=== PATIENT | male | born 1940 | race Caucasian/White ===

== ENCOUNTER 2019-11-05 10:30 | Outpatient (RCR) | payer MEDICARE, OTHER, SELFPAY ==
--- NOTE | 2019-10-03 11:17 | HP.OTEVAL ---
Patient's Visit Information ROSA MARIA Mari ALFARO is a 78 year old M, referred to Occupational Therapy by ARIS GIL, with a diagnosis of right IF closed dislocation of metacarpophalangeal joint. Date of Evaluation: 10/03/19 Occupational Therapist: Maria E Caal, OTJama/Margaret, CHT - Subjective This 78 year old male was seen for OT eval with dx. of closed dislocation of metacarpophalangeal joint of finger with sx for repair 4 months ago for right IF MCP. pt has limited ROM of IF and difficulty forming a composite fist. pt states he would like to return to his PLOF. recent right CTR - Pain right IF 4 Pain Intensity Range: 0, 4 - ROM MP: right IF 0/70 left 0/75 PIP: right IF 0/70 pt demo with 30* ulnar deviation with PIP flexion left 0/100 DIP: right IF 0/45 ROM Comments: pt demo a deviation of PIP - Strength Couples Therapist: right 35# left 50# Lateral Pinch: right 8# left 12# Tripod Pinch: right 8# left 10# Strength Comments: pt with recent CTR. noted muscle weakness in thumb adduction and IF abduction - Sensation Sensation Comments: states better since CTR but declined testing as not associated with this injury - Quick DASH-Disab of Arm,Shoulder& Hand Quick DASH Score: 29.5450 - Goals Goal:: pt will demo a increase in right field tax auditor strength by 10# or greater to return pt to PLOF by d/c Goal:: pt will demo a increase in right MCP flex to 75* and PIP flex by 25* or greater and a decrease in right IF middel phalanges ulnar dev by 10* or more to increase pts ability to form composite fist for functional grasp by d/c Goal:: pt will report pain no greater than 1/10 with use of right hand for ADLs and IADLS Goal:: pt will demo understanding of scar mtg by end of 2 session to decrease scar adhesions. - Rehabilitation General Assessment: Pt 4 months s/p open reduction of right IF MCP joint. pt demo with limited MCP and PIP ROM with ulnar deviation at PIP- this is limiting pts ind.with grasp and use of right hand for ADLs and IADLS. Pt would benefit from skilled OT services 1-2x week for 4 weeks to increase pts ind with ADls and IADLS. Today therapist completed scar mtg and PROM along with ed. pt on performing scar mtg 2-3x a day and PROM 3-4 x a day. pt demo understanding therapist will initiate PRE as able. pt demo understanding and agree to POC. Rehabilitation Potential: Good - Anticipated Interventions A/AAROM/PROM, Strengthening, Scar Care, Modalities, Orthoses, Joint Protection/Energy Conservation - Visit Plan Frequency: 2x /Week Duration: 4 Weeks TEXT: Thank you for the opportunity to evaluate your patient. For Medicare and Medicare HMO plans, please review the plan of care and approve it. It will need to be FAXED BACK to us at [phone] for Medicare purposes. Please let me know if there are questions or concerns regarding this plan of care. Physician Signature: Date:
--- NOTE | 2019-10-29 11:02 | HP.OTREVAL ---
ARIS GIL, It has been my pleasure to treat ROSA MARIA Guerra DR ALFARO over the last 8 visits for right IF closed dislocation of metacarpophalangeal joint. Please see the progress note below for an update on the occupational therapy plan of care! Subjective: pt arrives states he is feeling ok- no pian at this time but continues to struggle with composite fist/ PIP deviation - pt states a lot of times he doesn't notice the lack of ROM. But would like to know why deviation is occuring Objective/Function: right IF MCP ROM 0/70. right IF PIP 0/100. right IF DIP 0/50. IF deviates at PIP about 30*. therapist domenica oval 8 to provide support for pinch tasks -. right cash application clerk strength 30#. right lateral pinch 8#. right tripod pinch 8#. pt made improvements with ROM. Kyleigh has ed. pt on HEP for strength and ROM and in session we used US to increase soft tissue elasticity to wendy ROM - Plan Plan: pt to return to for further evaluation Goals - Goals Patient Goals: Regain Mobility, Use Hand/Wrist/Arm Normally Again Goal:: pt will demo a increase in right cash application clerk strength by 10# or greater to return pt to PLOF by d/c Goal:: pt will demo a increase in right MCP flex to 75* and PIP flex by 25* or greater and a decrease in right IF middel phalanges ulnar dev by 10* or more to increase pts ability to form composite fist for functional grasp by d/c Goal:: pt will report pain no greater than 1/10 with use of right hand for ADLs and IADLS Goal:: pt will demo understanding of scar mtg by end of 2 session to decrease scar adhesions. Anticipated Interventions Anticipated Interventions: A/AAROM/PROM, Strengthening, Scar Care, Modalities, Orthoses, Joint Protection/Energy Conservation Please do not hesitate to contact me at [phone] by phone or if you have questions or concerns regarding this new plan of care! Sincerely, Maria E Caal, OTR/L, CHT
--- NOTE | 2019-11-05 11:04 | HP.OTDCSUM_ITS ---
It has been my pleasure to treat ROSA MARIA Mari ALFARO under orders from ARIS GIL, for the diagnosis of right IF closed dislocation of metacarpophalangeal joint for a total of 10 visit(s). Please see the following information for a summary of their discharge status. % Improvement: 70 Objective/Function: right IF MCP ROM 0/70. right IF PIP 0/100. right IF DIP 0/50. IF deviates at PIP about 30*. therapist domenica oval 8 to provide support for pinch tasks -. right receiving tank operator strength 30#. right lateral pinch 8#. right tripod pinch 8#. pt made improvements with ROM. Thearpy has ed. pt on HEP for strength and ROM and in session we used US to increase soft tissue elasticity to wendy ROM -pt is using elastic bands and resistive sponge to increase pinch and receiving tank operator strength Patient Goals: Regain Mobility, Use Hand/Wrist/Arm Normally Again Goal:: pt will demo a increase in right receiving tank operator strength by 10# or greater to return pt to PLOF by d/c Goal:: pt will demo a increase in right MCP flex to 75* and PIP flex by 25* or greater and a decrease in right IF middel phalanges ulnar dev by 10* or more to increase pts ability to form composite fist for functional grasp by d/c Goal:: pt will report pain no greater than 1/10 with use of right hand for ADLs and IADLS Goal:: pt will demo understanding of scar mtg by end of 2 session to decrease scar adhesions. Plan: D/C with HEP Discharge Comments: pt was seen for 10 OT visits following a right IF MCP dislocation with surgical repair- pt continues to struggle with a PIP ulnar deviation with resisitance of receiving tank operator and pinch- therapist domenica. custom oval 8 for PIP to add stability- pt uses it on occasions- therapist has ed. pt on use of heat, scar mtg and AROM ex along with light resistive ex to cont to work with to gain increase use of right hand for ADls and IADLS. pt demo understanding and agree to POC If there are questions or concerns regarding this patient's occupational therapy, please fell free to call me at [phone]. Thank you for the referral of this patient. Sincerely, Maria E Caal, OTR/L, CHT
== END 2019-11-05 19:00 | disposition home or self-care (01) ==
LOC: OT 10:30
PROVIDERS: PCP Family Medicine
DX: S63.269D Dislocation of metacarpophalangeal joint of unspecified finger, subsequent encounter (principal)
CPT/HCPCS: 97035; 97110; 97140; 97166; 97530

== ENCOUNTER 2024-12-27 17:30 | Inpatient (IN) | payer MEDICARE, OTHER, SELFPAY ==
[2024-12-27] VITALS (7 sets, daily range): BP systolic 148–171; BP diastolic 68–88; PULSE 77–84; RESP 12–30; TEMP 36.6–37.8; O2SAT 95–97; BMI 26.1; BMI 26.2
--- NOTE | 2024-12-27 18:09 | CT_ITS ---
PROCEDURE: STROKE CTA HEAD AND NECK W/CON 12/27/2024 REASON FOR EXAM: NEURO DEFICIT, ACUTE, STROKE SUSPECTED - APHASIA TECHNIQUE: Procedure Code: CTCTA.ST.HN Modality: CT Procedure: STROKE CTA HEAD AND NECK W/CON Multiplanar Sagittal and Coronal images were obtained. CONTRAST: 100 mL of Isovue 370 One or more dose reduction techniques were used (e.g., Automated exposure control, adjustment of the mA and/or kV according to patient size, use of iterative reconstruction technique). RADIATION DOSE SUMMARY: DLP: 777 mGycm COMPARISON: none FINDINGS: The aortic arch demonstrates a bovine configuration with mild to moderate atherosclerosis. The ostia of the great vessels are patent. There is conventional branching. The right CCA is patent with mild atherosclerosis. There is no significant stenosis of the right carotid bifurcation although this is mild atherosclerosis. The cervical right ICA is patent. The right MCA and right ROBER appear patent. There is no large vessel occlusion. The left CCA is patent. There is no significant stenoses at the left carotid bifurcation although this is moderate atherosclerosis. The cervical left ICA is patent. The left MCA and left ROBER appear patent. There is no large vessel occlusion. The right vertebral artery arises from the right subclavian artery. The left vertebral artery arises from the left subclavian artery. Both vertebral arteries are patent. Both vertebral arteries join to form the patent basilar artery. Both posterior cerebral arteries arise from the tip of the basilar. Both proximal SATELLITE TELEVISION INSTALLER segments are patent. There is no large vessel occlusion. There is no enhancing intracranial mass. Shotty cervical lymph nodes are identified. The thyroid gland is heterogeneous. The lung apices demonstrate no pneumothorax. Calcified pleural lining. No destructive osseous abnormalities identified. Nonspecific ethmoid sinus/nasal cavity soft tissue structures measuring approximally 2.6 x 2.5 cm at the midline. CT/STROKE CTA Head AND Neck W/Con IMPRESSION: No acute large vessel occlusion or high grade stenosis. Nonspecific ethmoid sinus/nasal cavity soft tissue structures measuring approxi shara 2.6 x 2.5 cm at the midline (series 4, image 14). Dr. Villafana was notified by Larry Saenz at 6:45 Pm EST on 12/27/24. Reading Location: [facility]
--- NOTE | 2024-12-27 18:09 | CT_ITS ---
PROCEDURE: STROKE BRAIN/HEAD WITHOUT CONT 12/27/2024 REASON FOR EXAM: NEURO DEFICIT, ACUTE, STROKE SUSPECTED - APHASIA TECHNIQUE: Procedure Code: CTBR.ST Modality: CT Procedure: STROKE BRAIN/HEAD WITHOUT CONT Coronal and Sagittal reconstruction series were provided. One or more dose reduction techniques were used (e.g., Automated exposure control, adjustment of the mA and/or kV according to patient size, use of iterative reconstruction technique. RADIATION DOSE SUMMARY: DLP: 847 mGycm COMPARISON: None FINDINGS: Ill-defined hypodensity within the left periventricular morales radiata suggestive of subacute/chronic infarction although acute on subacute/chronic infarction is not entirely excluded. Otherwise, no definite acute large territorial infarction. No mass effect or acute intracranial hemorrhage is noted. There is no hydrocephalus or significant midline shift. There is moderate chronic microvascular ischemic changes and [id number]-[id number] parenchymal volume loss. No acute, depressed calvarial fractures. No large scalp hematomas. The paranasal sinuses are clear. Bilateral lens surgery. Nonspecific ethmoid sinus/nasal cavity soft tissue structures measuring approximally 2.6 x 2.5 cm at the midline (series 4, image 14). CT/STROKE Brain/Head without Cont IMPRESSION: Ill-defined hypodensity within the left periventricular morales radiata suggesti ve of subacute/chronic infarction although acute on subacute/chronic infarction is not entirely excluded. Otherwise, no definit e acute large territorial infarction. Nonspecific ethmoid sinus/nasal cavity soft tissue structures measuring approxi shara 2.6 x 2.5 cm at the midline (series 4, image 14). Dr. Villafana was notified by Larry Saenz at 6:50 pm EST on December 27, 2024. Reading Location: [facility]
--- NOTE | 2024-12-27 18:09 | EKG12_ITS ---
Test Reason : STROKE ALERT Blood Pressure : */* mmHG Vent. Rate : 82 BPM Atrial Rate : 83 BPM P-R Int : 164 ms QRS Dur : 92 ms QT Int : 346 ms P-R-T Axes : 40 -59 61 degrees QTcB Int : 404 ms Normal sinus rhythm Left anterior fascicular block Minimal voltage criteria for LVH, may be normal variant ( R in aVL ) Abnormal ECG Confirmed by JEANMARIE ALEJO ([id number]), art editor HALEY DELGADO ([id number]) on 12/29/2024 6:58:08 AM Referred By: CHAIM Confirmed By: JEANMARIE ALEJO
--- NOTE | 2024-12-27 18:10 | EX.ED.DYSGE1 ---
HPI History of Present Illness Chief Complaint: General Illness Informant: patient and family Narrative Narrative: Patient is an 84-year-old male with a history of HTN presenting with altered mental status and grogginess following inguinal hernia repair yesterday. Main issue is today, his speech is abnormal. Patient is accompanied by his son, who is supplementing history. - Underwent inguinal hernia repair yesterday morning at 0800 at [facility]/ Dr. Casanova. - Reports excessive pain at the incision site and grogginess since this morning. - Son notes that patient is unusually unable to finish sentences, appearing lethargic and tired; describes this as very odd for him. - Symptoms began this afternoon; was reportedly fine yesterday and this morning, though in pain. - Last known normal speech and behavior was around 0900 this morning per son. - Took a nap around 1000, which is atypical for him; woke up confused. [place] like he was OK when he went down for nap. Son states friends were there before that and they did not think he was acting unusual, as he is now. - Denies difficulty using or feeling arms or legs. - Denies numbness or tingling in legs. - No history of CVA, AFib, or vascular disease. - Stopped taking baby aspirin 15 days ago; denies current use of anticoagulants. - No other significant medical problems reported; remains active. [facility] Medical History (Updated 12/27/24 @ 23:[address] Darrell Reeves, DO) HTN (hypertension) Home Medications ?Medication ?Instructions ?Recorded ?Last Taken ?Type lisinopril 20 mg tablet 20 mg PO DAILY BP 12/27/24 Unknown History metoprolol succinate 50 mg 50 mg PO DAILY GERD 12/27/24 Unknown History tablet,extended release 24 hr omeprazole 20 mg capsule,delayed 20 mg PO DAILY GERD 12/27/24 Unknown History release oxycodone-acetaminophen 5 mg-325 1 tab PO 4X/DAY PRN PRN pain 12/27/24 Unknown History mg tablet Allergy/AdvReac Type Severity Reaction Status Date / Time Penicillins Allergy Hives Verified 12/27/24 17:32 Social History Smoking Status: Former smoker ROS ROS ED Constitutional Constitutional ED: Reports fatigue; Denies chills or fever(s) Eyes Eyes: Denies change in vision or diplopia ENT ENT ED: Denies rhinorrhea or sore throat Cardiovascular Cardiovascular: Denies chest pain or palpitations Respiratory/Chest Respiratory/Chest: Denies cough or dyspnea Gastrointestinal Gastrointestinal: Reports abdominal pain; Denies diarrhea, nausea or vomiting Genitourinary Genitourinary ED: Denies dysuria or hematuria Musculoskeletal Musculoskeletal: Denies back pain or neck pain Integumentary Denies abscess or rash Neurologic Neurologic: Reports as per HPI, abnormal speech and behavior changes; Denies headache(s), paresthesias or weakness Psychiatric Psychiatric: Denies anxiety or suicidal thoughts EXAM Physical Exam Const Vital Signs: 12/27/24 17:32 12/27/24 18:01 12/27/24 18:09 Temperature 99.1 F Temperature Source Oral Pulse Rate 84 Respiratory Rate 16 Respiratory Effort Normal Non-Labored Respiratory Pattern Normal Blood Pressure 171/84 H Blood Pressure Mean 113 Pulse Ox 96 96 Oxygen Delivery Method Room Air Room Air 12/27/24 18:09 12/27/24 18:09 12/27/24 19:06 Temperature Temperature Source Pulse Rate 84 82 80 Respiratory Rate 16 30 H 12 Respiratory Effort Respiratory Pattern Blood Pressure 165/88 H 164/73 H 167/76 H Blood Pressure Mean 113 103 106 Pulse Ox 97 95 97 Oxygen Delivery Method Room Air Room Air Room Air 12/27/24 19:30 Temperature Temperature Source Pulse Rate 81 Respiratory Rate 16 Respiratory Effort Respiratory Pattern Blood Pressure 148/68 H Blood Pressure Mean 94 Pulse Ox 97 Oxygen Delivery Method Room Air Positive well nourished and well developed General Appearance ED: well developed and NAD HEENT Reports moist mucous membranes normocephalic and atraumatic Eyes PERRL and EOMs intact bilaterally Neck full ROM and supple Neck Narrative: No carotid bruits Resp normal respiratory effort and clear to auscultation bilaterally Cardio regular rate, regular rhythm and no murmurs GI non-tender and non-distended GI Narrative: In the left lower quadrant surgical incision with dressing intact there is no discharge around the dressing and there is a significant amount of ecchymosis that progresses down into the left hemiscrotum. The left lower quadrant is all tender but he has no tenderness remotely or to percussion elsewhere in the abdomen. Soft nondistended normal bowel sounds present. Auscultation: normoactive bowel sounds Palpation: soft Back/Spine no CVA tenderness General Back: other FROM Extremity normal to inspection General Extremety ED: Negative for edema, pulses abnormal or tenderness General Extremity: Negative for edema or pulses abnormal Neuro oriented x3, CN's II-XII intact bilaterally and no sensory deficits noted Neuro Narrative: There is some mild expressive aphasia present. No jaime-inattention. No other lateralizing abnormal findings NIHSS 1 no dysarthria. Sensorium / Orientation: awake and alert Motor Exam: strength 5/5 throughout Skin no rashes or lesions noted and no wounds NIHSS NIHSS Initial: 1a Level of Consciousness: 0 1b LOC Questions (Score 2 if aphasic/stupor): 0 1c LOC Commands (Only score 1st attempt): 0 2 Best Gaze (If aphasic, use reflexive mvmts.): 0 3 Visual: 0 4 Facial Palsy: 0 5 Motor Arm Right (UN = amputation/fusion): 0 5 Motor Arm Left: 0 6 Motor Leg Right: 0 6 Motor Leg Left: 0 7 Limb ataxia (Only + if out of proportion): 0 8 Sensory (Aphasia/stupor=0 or 1, coma=2): 0 9 Best Language: 1 10 Dysarthria (mute, coma=2, intubated=UN): 0 11 Extinction and Inattention (only scored if +): 0 Total Score: 1 MDM MDM MDM Narrative Medical decision making narrative: I saw the patient just after 1800, the last known well sounds like it was as late as 10:00 this morning. He is not a thrombolytic candidate but he is within 24 hours of acute onset stroke like symptoms which is what I am concerned about especially given the fact that he has recently been off of his aspirin just had surgery yesterday and has blood pressure 171/84 so we called a stroke alert. Since the patient has been symptomatic for 24 hours, with approximately eight hours before evaluation, a stroke alert was called. The patient is not a thrombolysis candidate due to timing and recent intraabdominal surgery. I spoke with stroke neurology after he had a CT and CT angiography of the head and neck performed. I reviewed all of the imaging and results, which I agree with. They are consistent with a small area of encephalomalacia in the left parietal area, but no LVO, as confirmed by stroke neurology. The patient?s total NIHSS is 1. Admission for further workup is indicated. We are monitoring his blood pressure. His EKG shows sinus rhythm, and the rest of his lab tests are unremarkable. I believe the majority of his left lower quadrant findings are typical post-operative findings, as he is one day post-op from a left inguinal herniorrhaphy. I do not think he needs advanced imaging of this area at this time, and his blood counts look good, with no signs of anemia to suggest significant post-operative blood loss. Hemoglobin 15.9. I discussed this with stroke neurology as well as the hospitalist for admission to the PCU. Lab Data Attestation: I reviewed the patient's lab results. Labs: Laboratory Results - last 24 hr 12/27/24 12/27/24 18:18 18:20 WBC 12.0 H RBC 4.97 Hgb 15.9 Hct 47.3 MCV 95.2 H MCH 32.0 MCHC 33.6 RDW Std Deviation 44.2 H RDW Coeff of Tari 12.7 Plt Count 178 MPV 10.0 Immature Gran % (Auto) 0.400 Neut % (Auto) 81.0 H Lymph % (Auto) 6.0 L Mills % (Auto) 12.1 H Eos % (Auto) 0.2 Baso % (Auto) 0.3 Absolute Neuts (auto) 9.7 H Absolute Lymphs (auto) 0.72 L Nucleated RBC % 0 PT 13.8 INR 1.0 APTT 29.3 Sodium 137 Potassium 4.2 Chloride 102 Carbon Dioxide 23.8 Anion Gap 11 BUN 22 H Creatinine 1.04 Estim Creat Clear Calc 47.71 L Est GFR (MDRD) Non-Af 71 BUN/Creatinine Ratio 21.3 H Glucose 133 H Hemoglobin A1c 5.8 H Calcium 9.5 Troponin T High Sens 27 H TSH 4.180 Ethyl Alcohol < 10.1 POC Glucose 127 H Radiography Diagnostic Testing: Clinical Impression(s) from Imaging Studies Brain CT 12/27/24 18:09 IMPRESSION: Ill-defined hypodensity within the left periventricular morales radiata suggestive of subacute/chronic infarction although acute on subacute/chronic infarction is not entirely excluded. Otherwise, no definite acute large territorial infarction. Nonspecific ethmoid sinus/nasal cavity soft tissue structures measuring approximally 2.6 x 2.5 cm at the midline (series 4, image 14). Dr. Villafana was notified by Larry Saenz at 6:50 pm EST on December 27, 2024. Reading Location: [facility] Head/Neck CTA 12/27/24 18:09 IMPRESSION: No acute large vessel occlusion or high grade stenosis. Nonspecific ethmoid sinus/nasal cavity soft tissue structures measuring approximally 2.6 x 2.5 cm at the midline (series 4, image 14). Dr. Villafana was notified by Larry Saenz at 6:45 Pm EST on 12/27/24. Reading Location: [id number] Rhythm Strip Rhythm Strip: Sinus Rhythm Rate: 82 Ectopy: None EKG Initial EKG: Attestation: I personally reviewed and interpreted this EKG as follows: Interpretation: Sinus Rhythm, No Acute Injury Pattern and LAFB Prior EKG tracings: not available for review Prior: No Prior Management Discussion w/another healthcare provider: Hospitalist, Embosser Apprentice (stroke neuro dr. Granados) and Radiologist Critical Care Time Critical Care Time: Yes Critical care time (excluding procedures): 30-74 minutes (37 min), Including time spent:, Discussing w/Patient &/or Family/Pari Mutuel Ticket Seller, Discussing w/Consultants, Arranging Admission or Transfer and Performing Direct Patient Care at Bedside Discharge Plan Dx/Rx/DC Orders Clinical Impression: Aphasia due to acute stroke, Postprocedural state Disposition Disposition: Acute Care Hospital [facility] Discharge Date/Time: 12/27/24 20:42 Stroke Documentation Questions Stroke Team Activated: Yes Was Patient considered for Endovascular Intervention?: No-CTA negative, determined not to be an endovascular candidate IV Thrombolytic Administered: No (Outside window, recent surgery)
--- NOTE | 2024-12-27 18:16 | CM.ED ---
Social Work Date of referral: 12/27/24 Reason for referral: Stroke alert Patient has already been taken out of the room for imaging by the time social arrived, however, social worker health services met with patient's son to check in on him and see how he was doing. Patient stated that he and patient were both just scared because of symptoms but otherwise, stated he was ok and denied any needs/support at this time. Patient's son expressed appreciation for social work visit. Emily Suh, IT INTEGRATION ARCHITECT, AUTOMOTIVE MANUFACTURER
--- OUTSIDE RECORDS SUMMARY | 2024-12-27 18:23 | XMS RPT_ITS | CCD ---
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.Jennifer COLES Unavailable Ally De PA-C Unavailable [phone] ROSS BLANDON Referring Unavailable BARBER, ROSS A Primary Care Unavailable BARBER, ROSS A Primary Care Unavailable TESTAPOLINAR BIRCH Attending Unavailable BARBER, ROSS A Primary Care Unavailable VETOGILMERTZ, TRAN Referring Unavailable VETOGILMERTZ, TRAN Attending Unavailable BARBER, ROSS A Primary Care Unavailable TESTAPOLINAR BIRCH Referring Unavailable TESTAPOLINAR BIRCH Attending Unavailable TERESO BALBUENA Attending Unavailable BARBER, ROSS A Primary Care Unavailable BARBER, ROSS A Referring Unavailable BARBER, ROSS A Referring Unavailable TERESO BALBUENA Attending Unavailable BARBER, ROSS A Primary Care Unavailable BARBER, ROSS A Referring Unavailable BARBER, ROSS A Primary Care Unavailable BARBER, ROSS A Referring Unavailable TERESO BALBUENA Attending Unavailable BARBER, ROSS A Primary Care Unavailable BARBER, ROSS A Primary Care Unavailable TESTRAAPOLINAR HAWKINS Attending Unavailable BARBER, ROSS A Primary Care Unavailable DONTAE ROWE Attending Unavailable BARBER, ROSS A Primary Care Unavailable DONTAE ROWE P Referring Unavailable VETOHENRI, TRAN Attending Unavailable BARBER, ROSS A Primary Care Unavailable ROMEL QUEEN Referring Unavailable BARBER, ROSS A Primary Care Unavailable TESTRAKEAPOLINAR Attending Unavailable TESTRAKE, APOLINAR Referring Unavailable TRAN YOUNG Attending Unavailable ROSS BLANDON Primary Care Unavailable ROMEL QUEEN Referring Unavailable ROSS BLANDON Primary Care Unavailable TRAN YOUNG Attending Unavailable ROMEL QUEEN Referring Unavailable BARBER, ROSS A Primary Care Unavailable ROMEL QUEEN Referring Unavailable ROSS BLANDON Referring Unavailable TERESO BALBUENA Attending Unavailable ROSS BLANDON A Primary Care Unavailable TESTAPOLINAR BIRCH Referring Unavailable TESTSKYLAR, APOLINAR Attending Unavailable BARBER, ROSS A Primary Care Unavailable TESTSKYLAR, APOLINAR Attending Unavailable BARBER, ROSS A Primary Care Unavailable BARBER, ROSS A Primary Care Unavailable ROSS BLANDON A Attending Unavailable BARBER, ROSS A Primary Care Unavailable BARBER, ROSS A Referring Unavailable BARBER, ROSS A Referring Unavailable TERESO BALBUENA Attending Unavailable BARBER, ROSS A Primary Care Unavailable ROSS BLANDON A Referring Unavailable BARBER, ROSS A Primary Care Unavailable TERESO BALBUENA Attending Unavailable JOSÉ ANTONIO BLANDONREY A Referring Unavailable BARBER, ROSS A Primary Care Unavailable Allergies Allergy Classification Reported Allergen(s) Allergy Type Date of Onset Reaction(s) Facility (20 sources) Penicillin G; Translations: [PENICILLIN G] Drug Allergy 06-03-2002 [facility] Work Phone: (20 sources) Sertraline; Translations: [SERTRALINE HCL] Drug Allergy 12-11-2016 Other: See Comments [facility] Work Phone: Medications Current Medications Medication Drug Class(es) Dates Sig (Normalized) Sig (Original) aspirin 81 mg delayed release oral tablet (20 sources) Platelet Aggregation Inhibitor, Nonsteroidal Anti-inflammatory Drug take 1 tablet by mouth once daily aspirin, enteric coated (ASPIRIN, ENTERIC COATED) 81 mg EC tablet Take 81 mg by mouth once daily. Take one tablet daily Active Comment on above: Take 81 mg by mouth once daily. Take one tablet daily codeine phosphate 2 mg/ml / guaiFENesin 20 mg/ml oral solution (1 source) Opioid Agonist Start: 02-01-2022 End: 02-08-2022 take 5 mL by mouth every twelve hours as needed for cough and cough codeine-guaiFENes in (ROBITUSSIN AC) 10-100 mg/5 mL syrup Indications: Acute cough Take 5 mL by mouth twice daily as needed for up to 7 days. 70 mL 0 02/01/2022 02/08/2022 Active Comment on above: Take 5 mL by mouth t wice daily as needed for up to 7 days. fluticasone propionate 0.05 mg/actuat metered dose nasal spray (20 sources) Corticosteroid Start: 04-22-2024 take 2 spray(s) nasal route once daily fluticasone (FLONASE ALLERGY RELIEF) 50 mcg/actuation nasal spray Use 2 Sprays in each nostril once daily. 1 Each 1 04/22/2024 Active lisinopril 20 mg oral tablet (20 sources) Angiotensin Converting Enzyme Inhibitor Start: 12-08-2022 End: 05-27-2024 take 1 tablet by mouth once daily in the evening lisinopril (ZESTRIL) 20 mg tablet Take 1 tablet by mouth once daily. 90 tablet 3 10/21/2024 1:11 PM EDT 05/27/2024 Active Start: 11-13-2022 take 1 tablet by марина th once daily lisinopril (ZESTRIL) 20 mg tablet Take 1 tablet by mouth once daily. 90 tablet 0 11/13/2022 Active Start: 04-01-2020 End: 11-10-2022 take 1 tablet by mouth once daily lisinopril (ZESTRIL) 20 mg tablet Take 1 tablet by mouth once daily. 90 tablet 0 11/07/2022 11/10/2022 Discontinued Comment on above: TAKE 1 TABLET BY МАРИНА TH ONCE DAILY. 24 hr metoprolol succinate 50 mg extended release oral tablet (20 sources) beta-Adrenergic Tex Start: 04-20-2023 End: 05-26-2024 take 1 tablet by mouth once daily in the evening metoprolol succinate ER (TOPROL XL) 50 mg 24 hr tablet Indications: Essential hypertension Take 1 tablet by mouth once daily. 90 tablet 1 08/19/2024 2:44 PM EDT 05/26/2024 Active Start: 02-21-2023 End: 04-20-2023 take 0.5 tablet by mouth once daily metoprolol succinate ER (TOPROL XL) 100 mg Indications: Essential hypertension Take 1/2 tablet by mouth once daily. 45 tablet 1 02/21/2023 04/20/2023 Discontinued Start: 04-18-2021 End: 10-27-2022 take 0.5 tablet by mouth once daily metoprolol succinate ER (TOPROL XL) 100 mg Indications: Essential hypertension Take 1/2 tablet by mouth once daily. 45 tablet 1 04/19/2022 Active Start: 11-03-2019 End: 11-05-2020 take 0.5 tablet by mouth once daily metoprolol succinate ER (TOPROL XL) 100 mg Indications: Essential hypertension TAKE 1/2 TABLET BY MOUTH ONCE DAILY. 45 tablet 3 11/03/2019 11/05/2020 Discontinued Comment on above: TAKE 1/2 TABLET BY M OUTH ONCE DAILY. Take 1 tablet by марина th once daily. omeprazole 20 mg delayed release oral capsule (20 sources) Proton Pump Inhibitor Start: End: take 1 capsule by mouth once daily omeprazole (PRILOSEC) 20 mg capsule Take 1 capsule by mouth once daily on an empty stomach. 90 capsule 1 10/01/2024 10:18 AM EDT 05/27/2024 Active Comment on above: TAKE 1 CAPSULE BY MO UTH ONCE DAILY ON AN EMPTY STOMACH Take 1 capsule by mo uth once daily on an empty stomach. perflutren lipid microspheres 1.3 mL in NaCl (PF) 0.9% 10 mL injection (DEFINITY) (9 sources) Start: 2 End: 3 perflutren lipid microspheres 1.3 mL in NaCl (PF) 0.9% 10 mL injection (DEFINITY) 125 ml sodium chloride 9 mg/ml prefilled syringe (9 sources) Start: 2 End: 3 sodium chloride 0.9 % (flush) 10 mL (BD POSIFLUSH) vitamin b12 0.1 mg oral tablet (20 sources) Vitamin B12 take 1 tablet by mouth once daily cyanocobalamin (VITAMIN B-12) 100 mcg tab Take 100 mcg by mouth once daily. Active Comment on above: Take 100 mcg by mout h once daily. Completed/Discontinued Medications Medication Drug Class(es) Dates Sig (Normalized) Sig (Original) atorvastatin 10 mg oral tablet (1 source) HMG-CoA Reductase Inhibitor Start: 04-01-2020 End: 04-18-2021 take 0.5 tablet by mouth once daily atorvastatin (LIPITOR) 10 mg tablet TAKE 1/2 TABLET BY MOUTH ONCE DAILY. 45 tablet 3 04/01/2020 04/18/2021 Discontinued (Clinical Decision) Comment on above: TAKE 1/2 TABLET BY M OUTH ONCE DAILY. benzonatate 100 mg oral capsule (3 sources) Non-narcotic Antitussive Start: 01-30-2022 take 2 capsules by mouth every eight hours as needed benzonatate (TESSALON PERLE) 100 mg capsule Take 2 capsules by mouth three times daily as needed. 30 capsule 0 01/30/2022 Active Comment on above: Take 2 capsules by m outh three times daily as needed. betamethasone 3 mg/ml / betamethasone acetate 3 mg/ml injectable suspension (6 sources) Corticosteroid Start: 10-13-2024 End: 10-13-2024 betamethasone acetate-betamethas one sodium phosphate 3 mg injection (CELESTONE) Start: 10-13-2024 End: 10-13-2024 3 mg, Injection - FOR ORTHO USE ONLY, ONCE, 1 dose, Starting on Sun10/13/24 at 1102, Until Sun10/13/24 at 1102 Start: 08-04-2024 End: 08-04-2024 betamethasone acetate-betame thasone sodium phosphate 3 mg injection (CELESTONE) Start: 08-04-2024 End: 08-04-2024 3 mg, Injection - FOR ORTHO USE ONLY, ONCE, 1 dose, Starting on 08/04/24 at 1042, Until Sun08/04/24 at 1042 Start: 04-28-2024 End: 04-28-2024 betamethasone acetate-betame thasone sodium phosphate 3 mg injection (CELESTONE) Start: 04-28-2024 End: 04-28-2024 3 mg, Injection - FOR ORTHO USE ONLY, ONCE, 1 dose, Starting on Sun04/28/24 at 1211, Until Sun04/28/24 at 1211 clindamycin 300 mg oral capsule (7 sources) Lincosamide Antibacterial Start: 08-13-2019 End: 02-01-2022 take 2 capsules by mouth every hour clindamycin (CLEOCIN) 300 mg capsule Take 2 capsules by mouth as directed, one hour prior to dental appointment 2 capsule 5 04/18/2021 02/01/2022 Discontinued (Course of therapy completed) Comment on above: Take 2 capsules by m out as directed. one hour prior to dental appointment Take 2 capsules by m out as directed, one hour prior to dental appointment cyclobenzaprine hydrochloride 10 mg oral tablet (20 sources) Muscle Relaxant Start: 04-18-2021 End: 04-22-2024 take 0.5-1 tablets by mouth three times daily as needed for pain cyclobenzaprine (FLEXERIL) 10 mg tablet Indications: Strain of neck muscle, initial encounter Take 1/2 to 1 tablet by mouth 3 times daily as needed for muscle pain or spasm. 20 tablet 2 04/21/2021 3:35 PM EST 04/18/2021 04/22/2024 Discontinued (Course of therapy completed) Comment on above: Take 1/2 to 1 tablet by mouth 3 times daily as needed for muscle pain or spasm. hydroCHLOROthiazide 12.5 mg oral capsule (20 sources) Thiazide Diuretic Start: 04-01-2020 End: 04-20-2023 take 1 capsule by mouth once daily hydroCHLOROthiazide 12.5 mg capsule Indications: Essential hypertension Take 1 capsule by mouth once daily. 90 capsule 3 04/19/2022 04/20/2023 Discontinued Comment on above: TAKE 1 CAPSULE BY [facility] ONCE DAILY. levoFLOXacin 750 mg oral tablet (1 source) Quinolone Antimicrobial Start: 07-16-2020 End: 07-26-2020 take 1 tablet by mouth once daily levoFLOXacin (LEVAQUIN) 750 mg tablet Take 1 tablet by mouth once daily for 10 days. 10 tablet 0 07/16/2020 07/26/2020 Comment on above: Take 1 tablet by [facility] once daily for 10 days. 10 ml lidocaine hydrochloride 10 mg/ml injection (6 sources) Antiarrhythmic, Amide Local Anesthetic Start: 10-13-2024 End: 10-13-2024 lidocaine (PF) 10 mg/mL (1 %) 0.5 mL injection (XYLOCAINE) Start: 10-13-2024 End: 10-13-2024 0.5 mL, Injection - FOR ORTH O USE ONLY, ONCE, 1 dose, Starting on Sun10/13/24 at 1102, Until Sun10/13/24 at 1102 Start: 08-04-2024 End: 08-04-2024 lidocaine (PF) 10 mg/mL (1 % ) 0.5 mL injection (XYLOCAINE) Start: 08-04-2024 End: 08-04-2024 0.5 mL, Injection - FOR ORTH O USE ONLY, ONCE, 1 dose, Starting on 08/04/24 at 1042, Until Sun08/04/24 at 1042 Start: 04-28-2024 End: 04-28-2024 lidocaine (PF) 10 mg/mL (1 % ) 0.5 mL injection (XYLOCAINE) Start: 04-28-2024 End: 04-28-2024 0.5 mL, Injection - FOR ORTH O USE ONLY, ONCE, 1 dose, Starting on Sun04/28/24 at 1211, Until Sun04/28/24 at 1211 meclizine hydrochloride 25 mg oral tablet (1 source) Antiemetic Start: 11-04-2019 End: 01-19-2021 take 1 tablet by mouth every eight hours as needed meclizine (ANTIVERT) 25 mg tab Take 1 tablet by mouth three times daily as needed (dizziness). 20 tablet 2 11/04/2019 01/19/2021 Discontinued Comment on above: Take 1 tablet by марина three times daily as needed (dizziness). metroNIDAZOLE 500 mg oral tablet (1 source) Nitroimidazole Antimicrobial Start: 07-16-2020 End: 07-26-2020 take 1 tablet by mouth four times daily metroNIDAZOLE (FLAGYL) 500 mg tablet Take 1 tablet by mouth four times daily for 10 days. 40 tablet 0 07/16/2020 07/26/2020 Comment on above: Take 1 tablet by марина th four times daily for 10 days. moxifloxacin 400 mg oral tablet (1 source) Quinolone Antimicrobial Start: 07-14-2020 End: 07-16-2020 take 1 tablet by mouth once daily moxifloxacin (AVELOX) 400 mg tablet Indications: Colitis Take 1 tablet by mouth once daily for 10 days. 10 tablet 0 07/14/2020 07/16/2020 Discontinued (Changing Therapy/Dosage Form) Comment on above: Take 1 tablet by марина once daily for 10 days. ondansetron 4 mg disintegrating oral tablet (9 sources) Serotonin-3 Receptor Antagonist Start: 11-04-2019 End: 04-18-2021 take 1 tablet by mouth every six hours as needed ondansetron orally disintegrating (ZOFRAN ODT) 4 mg disintegrating tablet Take 1 tablet by mouth every 6 hours as needed for nausea/vomiting. 12 tablet 2 04/18/2021 Active Comment on above: Take 1 tablet by марина th every 6 hours as needed for Nausea/Vomiting. solifenacin succinate 10 mg oral tablet (2 sources) Cholinergic Muscarinic Antagonist Start: 12-12-2022 take 1 tablet by mouth once daily solifenacin 10 mg tablet Take 1 tablet by mouth once daily. 30 tablet 1 12/12/2022 Active Comment on above: Take 1 tablet by марина th once daily. tamsulosin hydrochloride 0.4 mg oral capsule (3 sources) alpha-Adrenergic Tex Start: 12-08-2022 take 1 capsule by mouth once daily at bedtime tamsulosin (FLOMAX) 0.4 mg Take 1 capsule by mouth daily at bedtime. 30 capsule 1 12/08/2022 Active Comment on above: Take 1 capsule by mo uth daily at bedtime. traMADol hydrochloride 50 mg oral tablet (1 source) Opioid Agonist End: 01-19-2021 take 1 tablet by mouth every six hours as needed traMADol (ULTRAM) 50 mg tablet Take 50 mg by mouth every 6 hours as needed for Pain (takes 1/2 tablet as needed, left from OR). 0 01/19/2021 Discontinued Comment on above: Take 50 mg by mouth every 6 hours as needed for Pain (takes 1/2 tablet as needed, left from OR). Problems Active Problems Problem Classification Problem Date Documented Date Episodic/Chronic Abdominal hernia (2 sources) Left inguinal hernia ; Translations: [Unilateral inguinal hernia, without obstruction or gangrene, not specified as recurrent] Onset: 11-17-2024 11-17-2024 Episodic Aortic; peripheral; and visceral artery aneurysms (20 sources) Aortic root dilatation; Translations: [Thoracic aortic ectasia] Onset: 04-18-2021 05-03-2021 Chronic Cancer of prostate (20 sources) Malignant tumor of prostate; Translations: [Malignant neoplasm of prostate] Onset: 08-22-2005 07-14-2020 Chronic Conditions associated with dizziness or vertigo (1 source) Dizziness; Translations: [Dizziness and giddiness] Episodic Disorders of lipid metabolism (20 sources) Mixed hyperlipidemia; Translations: [Mixed hyperlipidemia] Onset: 03-09-2005 Resolved: 12-10-2014 07-14-2020 Chronic Diverticulosis and diverticulitis (20 sources) Diverticulum of large intestine without hemorrhage; Translations: [Diverticulosis of large intestine without perforation or abscess without bleeding] Onset: 03-21-2018 07-14-2020 Chronic Esophageal disorders (20 sources) Gastroesophageal reflux disease without esophagitis; Translations: [Gastro-esophageal reflux disease without esophagitis] Onset: 02-24-2005 Resolved: 03-14-2017 07-14-2020 Chronic Essential hypertension (20 sources) Essential hypertension; Translations: [Essential (primary) hypertension] Onset: 01-22-2007 03-11-2019 Chronic Genitourinary symptoms and ill-defined conditions (1 source) Male urinary stress incontinence; Translations: [Stress incontinence (female) (male)] 12-12-2022 Chronic Genitourinary symptoms and ill-defined conditions (3 sources) Nocturia; Translations: [Nocturia] 12-12-2022 Episodic Mycoses (11 sources) Onychomycosis; Translations: [Tinea unguium] Onset: 10-23-2024 Episodic Occlusion or stenosis of precerebral arteries (1 source) Occlusion and stenosis of bilateral carotid arteries; Translations: [Bilateral carotid artery stenosis] Onset: 12-11-2024 Chronic Open wounds of extremities (2 sources) Open wound of toe; Translations: [Unspecified open wound of unspecified toe(s) without damage to nail, initial encounter] 07-26-2023 Episodic Osteoarthritis (20 sources) Osteoarthritis of right knee joint; Translations: [Unilateral primary osteoarthritis, right knee] Onset: 09-06-2016 Resolved: 10-31-2016 10-31-2016 Chronic Other circulatory disease (3 sources) Abnormal peripheral pulse; Translations: [Other specified symptoms and signs involving the circulatory and respiratory systems] Episodic Other connective tissue disease (20 sources) History of total knee arthroplasty; Translations: [Presence of right artificial knee joint] Onset: 12-07-2016 07-14-2020 Chronic Other connective tissue disease (9 sources) Pain of toe of left foot; Translations: [Pain in left toe(s)] Episodic Other connective tissue disease (10 sources) Pain of toe of right foot; Translations: [Pain in right toe(s)] Episodic Other connective tissue disease (3 sources) Pain in right hand; Translations: [Pain in right hand] 04-16-2024 Episodic Other connective tissue disease (1 source) Pain in right toe(s); Translations: [Pain in toe of right foot] Onset: 10-23-2024 Episodic Other connective tissue disease (1 source) Pain in left toe(s); Translations: [Pain in toe of left foot] Onset: 10-23-2024 Episodic Other ear and sense organ disorders (1 source) Impacted cerumen of bilateral ears; Translations: [Impacted cerumen, bilateral] 04-22-2024 Episodic Other lower respiratory disease (1 source) Cough; Translations: [Acute cough] Episodic Other lower respiratory disease (1 source) Solitary pulmonary nodule; Translations: [Pulmonary nodule] Onset: 12-11-2024 Episodic Other male genital disorders (20 sources) Secondary erectile dysfunction; Translations: [Male erectile dysfunction, unspecified] Onset: 06-03-2002 07-14-2020 Chronic Other non-epithelial cancer of skin (20 sources) History of malignant neoplasm of skin; Translations: [Personal history of other malignant neoplasm of skin] Onset: 02-23-2010 Resolved: 03-14-2017 02-22-2012 Episodic Other skin disorders (3 sources) Ingrowing toenail; Translations: [Ingrowing nail] 07-09-2023 Episodic Other skin disorders (1 source) Ingrowing nail; Translations: [Ingrowing toenail] Onset: 10-23-2024 Episodic Peripheral and visceral atherosclerosis (1 source) Peripheral vascular disease, unspecified; Translations: [Peripheral vascular disease, unspecified] Chronic Residual codes; unclassified (20 sources) Obstructive sleep apnea syndrome; Translations: [Obstructive sleep apnea (adult) (pediatric)] Onset: 03-15-2017 07-14-2020 Chronic Residual codes; unclassified (1 source) Obstructive sleep apnea (adult) (pediatric); Translations: [Obstructive sleep apnea] Onset: 07-14-2020 Chronic Spondylosis; intervertebral disc disorders; other back problems (20 sources) Degeneration of lumbar intervertebral disc; Translations: [Other intervertebral disc degeneration, lumbar region] Onset: 03-15-2017 07-14-2020 Chronic Unclassified (20 sources) Active living will ; Translations: [Living will on file] Onset: 04-18-2021 04-18-2021 Unclassified (1 source) Established Patient Onset: 09-02-2024 Past or Other Problems Problem Classification Problem Date Documented Da te Episodic/Chronic Adjustment disorders (20 sources) Reactive depression (situational); Translations: [Adjustment disorder with depressed mood] Onset: 11-24-2016 Resolved: 03-14-2017 03-14-2017 Chronic Administrative/social admission (20 sources) Advance directive discussed with patient; Translations: [Other specified counseling] Onset: 04-19-2022 04-19-2022 Episodic Allergic reactions (20 sources) Disorders of skin induced by physical agents; Translations: [Unspecified contact dermatitis due to plants, except food] Onset: 09-14-2006 Resolved: 03-14-2017 03-14-2017 Episodic Diabetes mellitus without complication (20 sources) Hyperglycemia; Translations: [Hyperglycemia, unspecified] Onset: 04-19-2022 04-19-2022 Episodic Immunizations and screening for infectious disease (4 sources) Vaccination needed; Translations: [Encounter for immunization] Onset: 04-22-2024 Episodic Joint disorders and dislocations; trauma-related (20 sources) Tear of lateral meniscus of knee; Translations: [Other tear of lateral meniscus, current injury, unspecified knee, initial encounter] Onset: 09-21-2003 Resolved: 08-29-2016 08-29-2016 Episodic Melanomas of skin (20 sources) History of malignant melanoma of the skin; Translations: [Personal history of malignant melanoma of skin] Onset: 06-21-2010 07-14-2020 Episodic Miscellaneous mental health disorders (3 sources) Acute insomnia; Translations: [Adjustment insomnia] Onset: 07-14-2020 04-20-2023 Episodic Neoplasms of unspecified nature or uncertain behavior (20 sources) Neoplasm of uncertain behavior of skin; Translations: [Neoplasm of uncertain behavior of skin] Onset: 12-19-2009 Resolved: 03-14-2017 03-14-2017 Episodic Nutritional deficiencies (20 sources) Serum vitamin B12 low; Translations: [Deficiency of other specified B group vitamins] Onset: 04-19-2022 04-19-2022 Episodic Other aftercare (20 sources) Patient encounter status; Translations: [Other emt intermediate (current) drug therapy] Onset: 04-10-2022 Episodic Other aftercare (20 sources) Surgical follow-up; Translations: [Encounter for follow-up examination after completed treatment for conditions other than malignant neoplasm] Onset: 09-21-2003 Resolved: 08-29-2016 08-29-2016 Episodic Other aftercare (1 source) Other retirement (current) drug therapy; Translations: [Medication management] Onset: 04-10-2022 Episodic Other and unspecified benign neoplasm (20 sources) Tubular adenoma of colon; Translations: [Benign neoplasm of colon, unspecified] Onset: 03-14-2017 07-14-2020 Episodic Other and unspecified benign neoplasm (20 sources) History of polyp of colon; Translations: [Personal history of colonic polyps] Onset: 03-21-2018 04-18-2021 Episodic Other connective tissue disease (20 sources) Bursitis of hip; Translations: [Other bursitis of hip, unspecified hip] Onset: 04-19-2016 Resolved: 08-29-2016 08-29-2016 Episodic Other connective tissue disease (1 source) Pain in right hand; Translations: [Right hand pain] Onset: 04-28-2024 Episodic Other ear and sense organ disorders (2 sources) Otalgia, left ear; Translations: [Otalgia, unspecified] Onset: 04-22-2024 04-22-2024 Episodic Other ear and sense organ disorders (1 source) Impacted cerumen, bilateral; Translations: [Bilateral impacted cerumen] Onset: 04-22-2024 Episodic Other gastrointestinal disorders (20 sources) Irritable bowel syndrome; Translations: [Irritable bowel syndrome without diarrhea] Onset: 02-05-2014 Resolved: 03-20-2018 03-20-2018 Chronic Other gastrointestinal disorders (20 sources) Occult blood in stools; Translations: [Other fecal abnormalities] Onset: 09-16-2020 Resolved: 09-16-2020 09-16-2020 Episodic Other inflammatory condition of skin (20 sources) Pruritus of skin; Translations: [Pruritus, unspecified] Onset: 09-14-2006 Resolved: 03-14-2017 03-14-2017 Episodic Other inflammatory condition of skin (20 sources) Seborrheic dermatitis; Translations: [Seborrheic dermatitis, unspecified] Onset: 09-14-2006 Resolved: 03-14-2017 03-14-2017 Episodic Other nervous system disorders (20 sources) Impairment of balance; Translations: [Other abnormalities of gait and mobility] Onset: 05-05-2024 04-22-2024 Episodic Other nervous system disorders (20 sources) Abnormal gait; Translations: [Unspecified abnormalities of gait and mobility] Onset: 05-05-2024 04-22-2024 Episodic Other nervous system disorders (1 source) Other abnormalities of gait and mobility; Translations: [Balance problem] Onset: 05-05-2024 Episodic Other nervous system disorders (1 source) Unspecified abnormalities of gait and mobility; Translations: [Abnormality of gait] Onset: 05-05-2024 Episodic Other non-traumatic joint disorders (20 sources) Pain in right knee; Translations: [Pain in joint, lower leg] Onset: 06-22-2017 Resolved: 03-20-2018 03-20-2018 Episodic Other skin disorders (20 sources) Actinic keratosis; Translations: [Actinic keratosis] Onset: 12-19-2009 Resolved: 03-14-2017 03-14-2017 Episodic Other skin disorders (20 sources) Inflamed seborrheic keratosis; Translations: [Inflamed seborrheic keratosis] Onset: 12-19-2009 Resolved: 03-11-2015 03-11-2015 Episodic Other skin disorders (20 sources) Seborrheic keratosis; Translations: [Other seborrheic keratosis] Onset: 06-21-2010 Resolved: 03-11-2015 03-11-2015 Episodic Other skin disorders (20 sources) Solar lentigo; Translations: [Other melanin hyperpigmentation] Onset: 06-21-2010 Resolved: 07-28-2015 07-28-2015 Episodic Other upper respiratory disease (20 sources) Allergic rhinitis; Translations: [Allergic rhinitis, unspecified] Onset: 06-21-2006 Resolved: 03-14-2017 03-14-2017 Chronic Residual codes; unclassified (20 sources) Insomnia; Translations: [Insomnia, unspecified] Onset: 12-04-2014 07-14-2020 Episodic Residual codes; unclassified (4 sources) Active living will ; Translations: [Personal history of other specified conditions] Onset: 04-18-2021 04-18-2021 Episodic Screening and history of mental health and substance abuse codes (2 sources) Encounter for screening for depression; Translations: [Encounter for screening examination for other mental health and behavioral disorders] Onset: 04-22-2024 Episodic Spondylosis; intervertebral disc disorders; other back problems (20 sources) 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; Translations: [Osseous stenosis of neural canal of lumbar region] Onset: 12-07-2016 Resolved: 03-20-2018 07-14-2020 Episodic Sprains and strains (20 sources) Strain of neck muscle; Translations: [Strain of muscle, fascia and tendon at neck level, initial encounter] Onset: 02-10-2021 02-10-2021 Episodic Results Test Name Value Interpretation Reference Range Facility [facility] 12-11-2024 BANNER Telephone (FAMPWS) -------- ANDREW PERAZA MD ([id number]) 1940 M Date Time Provider Department 12/11/24 [facility] During your visit today, we recorded the following information about you: Loan العراقي RN 12/11/2024 8:59 AM Signed Patient calls to request message be sent to Dr. Blandon to let provider know that he is having hernia surgery completed on 12/26/[address] Rowe. Patient also asking about Covid vaccines. Notified that we do not currently have them. Patient is going to check with pharmacy as he would like to receive prior to surgery. Nothing further needed closing TE. Loan العراقي RN Allergies As of Date: 12/11/2024 Noted Allergy Reaction PENICILLIN G 06/03/2002 4 - Hives Comments: Urticaria Reaction details: hives occurred within hours after administration at age 25 Outcome of reaction: stopped agent Tolerated the following: Penicillin g ZOLOFT (SERTRALINE HCL) 12/11/2016 14 - Other: See Comments Comments: nightmares Date Reviewed: 11/17/2024 Reviewed by: Nery Gómez RN - Fully Assessed Reason for Visit: Patient Update [1234] Prescriptions as of 12/11/2024 - metoprolol succinate ER (TOPROL XL) 50 mg 24 hr tablet Take 1 tablet by mouth once daily. - lisinopril (ZESTRIL) 20 mg tablet Take 1 tablet by mouth once daily. - omeprazole (PRILOSEC) 20 mg capsule Take 1 capsule by mouth once daily on an empty stomach. - fluticasone (FLONASE ALLERGY RELIEF) 50 mcg/actuation nasal spray Use 2 Sprays in each nostril once daily. - cyanocobalamin (VITAMIN B-12) 100 mcg tab Take 100 mcg by mouth once daily. - aspirin, enteric coated (ASPIRIN, ENTERIC COATED) 81 mg EC tablet Take 81 mg by mouth once daily. Take one tablet daily Problem List As Of Date 12/11/2024 Noted Resolved Impotence of organic origin [N52.9] 06/03/2002 Tear of lateral cartilage or meniscus of knee, *09/21/2003 08/29/2016 Follow-up examination, following other surgery *09/21/2003 08/29/2016 Esophageal reflux [K21.9] 02/24/2005 03/14/2017 Other and unspecified hyperlipidemia [E78.5] 03/09/2005 12/10/2014 Malignant neoplasm of prostate (HCC) [C61] 08/22/2005 Allergic rhinitis, cause unspecified [J30.9] 06/21/2006 03/14/2017 Contact dermatitis and other eczema due to plan*09/14/2006 03/14/2017 Contact dermatitis and other eczema, due to uns*09/14/2006 03/14/2017 Unspecified pruritic disorder [L29.9] 09/14/2006 03/14/2017 Seborrheic dermatitis, unspecified [L21.9] 09/14/2006 03/14/2017 Essential hypertension [I10] 01/22/2007 Neoplasm of Uncertain Behavior(NUB) of skin: po*12/19/2009 03/14/2017 Actinic Keratosis (Premalignant AK) [L57.0] 12/19/2009 03/14/2017 Actinic Damage///Sun-damaged skin [L57.8] 12/19/2009 12/19/2009 Irritated//Inflamed Seborrheic Keratosis [L82.0]12/19/2009 03/11/2015 Actinic Damage///Sun-damaged skin [L57.8] 12/19/2009 03/14/2017 Other and unspecified malignant neoplasm of sca*02/23/2010 03/14/2017 H/O BCC skin cancer: other malignant neoplasm *06/21/2010 Other seborrheic keratosis [L82.1] 06/21/2010 03/11/2015 Solar lentigo [L81.4] 06/21/2010 07/28/2015 Personal history of malignant melanoma of skin *06/21/2010 IBS (irritable bowel syndrome) [K58.9] 02/05/2014 03/20/2018 Irritable bowel syndrome [K58.9] 05/14/2014 05/14/2014 Mixed hyperlipidemia [E78.2] 12/04/2014 Insomnia [G47.00] 12/04/2014 Hip bursitis [M70.70] 04/19/2016 08/29/2016 Primary osteoarthritis of right knee [M17.11] 09/06/2016 10/31/2016 Arthritis of right knee [M17.11] 10/30/2016 10/31/2016 Situational depression [F43.21] 11/24/2016 03/14/2017 Status post total knee replacement, right [Z96.*12/07/2016 Right sided sciatica [M54.31] 12/07/2016 03/20/2018 Intervertebral disc disorder with radiculopathy*01/12/2017 03/20/2018 Intervertebral disc stenosis of neural canal of*01/12/2017 03/20/2018 Tubular adenoma of colon [D12.6] 03/14/2017 DDD (degenerative disc disease), lumbar [M51.36*03/15/2017 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*03/15/2017 Right lumbar radiculitis [M54.16] 03/15/2017 03/20/2018 Obstructive sleep apnea [G47.33] 03/15/2017 Chronic pain of right knee [M25.561, G89.29] 06/22/2017 03/20/2018 History of colonic polyps [Z86.0100] 03/21/2018 Diverticulosis of large intestine without hemor*03/21/2018 GERD without esophagitis [K21.9] 03/21/2018 Positive occult stool blood test [R19.5] 09/16/2020 09/16/2020 Cervical strain [S16.1XXA] 02/10/2021 Medicare annual wellness visit, subsequent [Z00*04/18/2021 Living will on file [NYF8088] 04/18/2021 DDD (degenerative disc disease), cervical [M50.*04/18/2021 Aortic root dilatation (HCC) [I77.810] 04/18/2021 Medication management [Z79.899] 04/10/2022 Advance directive discussed with patient [Z71.8*04/19/2022 Low serum vitamin B12 [E53.8] 04/19/2022 Elevated blood sugar [R73.9] 04/19/2022 Balance problem (more content not included)... Normal [facility] HISTORY PHYSICALon HISTORY PHYSICAL HNO ID: [id number] Author: CHASTITY LACY APRN.PAPER MACHINE SUPERVISOR Service: ? Author Type: Nurse Practitioner Type: H&P Filed: 12/11/2024 14:14 Note Text: [facility] HISTORY AND PHYSICAL EXAMINATION SERVICE DATE: 12/11/2024 SERVICE TIME: 2:13 PM PRIMARY CARE PHYSICIAN: Ross Blandon MD Assessment Patient has the following medical conditions which may affect wilian-operative course: 1. Aortic root dilatation (I77.810) - Stable; most recent echocardiogram in 2021 showed no change from prior studies. - Reviewed cardiology results from Dr. Rojas (2015) and Dr. Blandon (2021). ECHO (05/03/2021 7:59 AM) The visualized aorta is dilated with a maximal dimension of 4.5 cm. 2. Obstructive sleep apnea (G47.33) - Marginal findings on prior sleep study; unable to tolerate CPAP. 3. Essential hypertension (I10) - Well-controlled on lisinopril and metoprolol. Last 3 Encounter BP Readings: Date: BP: 12/11/2024 124/68 11/17/2024 133/71 04/22/2024 128/74 4. Mixed hyperlipidemia (E78.2) - Previously trialed on statin therapy without significant change in lipid levels; currently diet-controlled. 5. GERD without esophagitis (K21.9) - Controlled with omeprazole once daily. 6. Diverticulosis of large intestine without hemorrhage (K57.30) - Denies any new or worsening symptoms. 7. Malignant neoplasm of prostate (HCC) (C61) - History of radical prostatectomy 27 years ago; no evidence of recurrence. 8. Bilateral carotid artery stenosis (I65.23) - History of very short transient episode; bilateral carotid stenosis (20-39%) on ultrasound. - Restarted aspirin therapy following TIA episode. - Hold aspirin 7 days prior to surgery (last dose December 18). 9. Pulmonary nodule (R91.1) - Stable 5 mm pulmonary nodule noted in 2020. 10. Personal history of malignant neoplasm of skin (Z85.828) - History of skin cancer excised. ANESTHESIA FINDINGS: Intubation History: No history of difficult intubation. No abnormal airway history Significant Anesthesia Considerations: Patient would like to be under spinal anesthesia for this procedure if he's able. Airway History: No history of difficult airway No abnormal airway history Minor Activity Status Index: METS: Walk indoors, such as around the house (1.75 METs) Do light work around the house, such as dusting or washing dishes (2.70 METs) Take care of self; that is eating, dressing, bathing, using the toilet (2.75 METs) Walk a block or two on level ground (2.75 METs) Do moderate work around the house, such as vacuuming, sweeping floors, or carrying in groceries (3.50 METs) Climb a flight of stairs or walk up a hill (5.50 METs) DASI Score: 18.95 Patient denies any chest pain or undue shortness of breath with the above physical activity. Clinical Frailty Scale: 3. Well, with treated comorbid disease STOP-Bang Score: STOP-Bang Score: (+ jose miguel non-compliant ) I - PHYSICAL EVALUATION AIRWAY Patient intubated: No. Tracheostomy tube not present Mallampati: II. TM distance: >3 FB. Neck ROM: full ROM without neurological symptoms. Mouth openin FB. Short neck: no. Thick neck: no DENTAL Dental findings: teeth intact and caps/crowns. Additional comments: + bridge. II - ANESTHESIA PLAN Anesthetic plan additional comments: *PACC/TCI - anesthesia choice. Informed Consent Prepared for Surgery: optimally prepared for surgery, pending [see comment]. Patient would like to be under spinal anesthesia for this procedure if he's able. Patient reports he was not under general, he had a spinal for TKA and nerve block for prostatectomy. CONSULTS: Patient does not require consults for optimization at this time Planned Anesthetic: anesthesia choice The Following Tests/Procedures Have Been Initiated: No orders of the defined types were placed in this encounter. 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 Dontae Rowe for consultation. My final recommendation will be communicated back to the requesting physician by way of shared medical record or letter. Subjective The patient has the following: COVID-19 Immunization Status Current Care Gaps Covid-19 Vaccine (2024- season) Overdue since 11/03/2024 11/18/2023 Imm Admin: COVID-19 vaccine (NOVAVAX) 12/08/2022 Imm Admin: COVID-19 vaccine, age 12+ yr (PFIZER-BIONTECH COMIRNATY) 12/24/2021 Imm Admin: COVID-19 vaccine, age 12+ yr, bivalent (Fylet-BIONTECH) Only the first 3 history entries have been loaded, but more history exists. 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 He reports a left-sided hernia that has required (more content not included)... Normal [facility] CNOVon 11-17-2024 CNOV Office Visit (GENSWS ) -------- ANDREW PERAZA MD ([id number]) 1940 M Date Time Provider Department 11/17/24 1:15 PM DONTAE ROWE During your visit today, we recorded the following information about you: Pulse Respiration Blood pressure Weight 68/minute 16/minute 133/71 74.9 kg Dontae Rwoe MD 11/17/2024 1:24 PM Signed HISTORY AND PHYSICAL Andrew H Karmen BORJAS 1940 REFERRING PHYSICIAN: No ref. provider found CHIEF COMPLAINT: Inguinal Hernia (Lt side Inguinal hernia) HPI: Andrew Peraza is an 84-year-old male, with a history of left first carpal bone arthritis and a left inguinal hernia, presenting for evaluation of hernia repair. Andrew reports a left inguinal hernia that he noticed was bulky and reducible without pain or tenderness. He recalls a previous right inguinal hernia repair performed [address] Rivero, who mentioned encountering some difficulty with the incision scar. Andrew has a history of radical prostatectomy. He also reports significant weight loss, having reduced his weight from 350 lbs to 255 lbs. He denies undergoing bariatric surgery but has had a total knee and partial knee replacement. 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 He is considering surgical options for this condition. PAST MEDICAL HISTORY Diagnosis Date Adjustment insomnia Advance directive discussed with patient 04/19/2022 Discussed 04/2022: up to date Aortic root dilatation 04/18/2021 Arthritis of knee 08/02/2016 DDD (degenerative disc disease), cervical 04/18/2021 May need prn prednisone. DDD (degenerative disc disease), lumbar 03/15/2017 Diverticulosis of colon (without mention of hemorrhage) Diverticulosis of large intestine without hemorrhage 03/21/2018 Added automatically from request for surgery [id number] Elevated blood sugar 04/19/2022 Essential hypertension 01/22/2007 03/11/2019: Home BP Cuff Validated. 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 Personal history of malignant melanoma of skin 06/21/2010 Situational depression 11/24/2016 Status post total knee replacement, right 12/07/2016 Tubular adenoma of colon 03/14/20172014--tubular adenoma in mid transverse colon and rectum Urinary hesitancy 12/08/2022 PAST SURGICAL HISTORY Procedure Laterality Date ABDOMINAL SURGERY HX ARTHRP KNE CONDYLEANDPLATU MEDIALANDLAT COMPARTMENTS Right 10/30/2016 Knee replacement, total COLONOSCOPY FLX DX W/COLLJ SPEC WHEN PFRMD 05/14/2014 Colonoscopy COLONOSCOPY FLX DX W/COLLJ SPEC WHEN PFRMD 04/29/2018 Colonoscopy COLONOSCOPY FLX DX W/COLLJ SPEC WHEN PFRMD 09/16/2020 COLONOSCOPY W/BIOPSY SINGLE/MULTIPLE 04/29/2010 DESTRUCTION, 1ST LESION 06/19/2012 Amputation/cauterization right medial malleolus EGD ESOPHAGOGASTRODUODENOSCO PY TRANSORAL DIAGNOSTIC 04/29/2018 EGD EYE SURGERY HX HERNIA REPAIR HX JOINT REPLACEMENT HX KNEE ARTHROSCOPY Right 2004 LAPS PROSTECT RETROPUBIC RAD W/NRV SPARING ROBOT 1996 NEUROPLASTY AND/TRANSPOS MEDIAN NRV CARPAL TUNNE Right 09/18/2019 Right carpal tunnel release RPR 1ST INGUN HRNA AGE 5 YRS/> REDUCIBLE Right 12/08/2014 [facility] SHOULDER ARTHROSCOPY/SURGERY Right 1988 SHOULDER ARTHROSCOPY/SURGERY Left 1989 SKIN BIOPSY HX TONSILLECTOMY AND ADENOIDECTOMY HX 194 Current Outpatient Medications Medication Sig lisinopril (ZESTRIL) 20 mg tablet Take 1 tablet by mouth once daily. omeprazole (PRILOSEC) 20 mg capsule Take 1 capsule by mouth once daily on an empty stomach. metoprolol succinate ER (TOPROL XL) 50 mg 24 hr tablet Take 1 tablet by mouth once daily. cyanocobalamin (VITAMIN B-12) 100 mcg tab Take 100 mcg by mouth once daily. aspirin, enteric coated (ASPIRIN, ENTERIC COATED) 81 mg EC tablet Take 81 mg by mouth once daily. Take one tablet daily fluticasone (FLONASE ALLERGY RELIEF) 50 mcg/actuation nasal spray Use 2 Sprays in each nostril once daily. (Patient not taking: Reported on 07/14/2024) No current facility-administered medications for this visit. (more content not included)... Normal [facility] CNOVon 10-23-2024 CNOV Office Visit (PODIWS ) -------- ANDREW PERAZA MD ([id number]) 1940 M Date Time Provider Department 10/23/24 10:15 AM APOLINAR BLEVINS PODIWS During your visit today, we recorded the following information about you: Nita Tovar RN 10/23/2024 10:55 AM Signed Patient presents with: Left Foot - Established Patient: Nail care Right Foot - Established Patient: Nail care Apolinar Blevins 10/23/2024 10:55 AM Signed Subjective: Patient presents to clinic c/o painful toenails. They state that the nails are especially painful with shoe gear and pressure. Patient states that nails 1-5 b/l are painful. No other pedal complaints at this time. Patient states no change in medications or medical history since last visit. Objective: Patient presents to clinic ambulating in [facility] Vasc: DP and PT pulses are faintly palpable bilateral. CFT is less than 5 seconds bilateral. Skin temperature is warm to cool proximal to distal bilateral. There is mild edema or varicosities noted. Neuro: Protective sensation is intact to the foot and toes when tested with the 5.07 SWM bilateral. The hallux is downgoing bilateral. Derm: Nails 1-5 b/l are painful, discolored-yellow, thick, crumbly, dystrophic and with subungal debris. Skin is of normal turgor, texture and hair growth is present bilateral. There are no hyperkeratosis, ulcerations, scars, verruca or other lesions noted. Ortho: Muscle strength is 5/5 for all pedal groups tested. Ankle joint DF is full with the knee extended with no pain or crepitus noted. 1st MPJ ROM is full bilateral. Assessment: (B35.1) Onychomycosis (primary encounter diagnosis) (M79.674) Pain in toe of right foot (M79.675) Pain in toe of left foot Plan: Patient was seen and evaluated. Nails 1-5 bilateral were debrided in length and thickness. Patient is to RTC in 3-4 months. Apolinar Blevins DPM Referring Provider: APOLINAR BLEVINS [[id number]] Allergies As of Date: 10/23/2024 Noted Allergy Reaction PENICILLIN G 06/03/2002 4 - Hives Comments: Urticaria Reaction details: hives occurred within hours after administration at age 25 Outcome of reaction: stopped agent Tolerated the following: Penicillin g ZOLOFT (SERTRALINE HCL) 12/11/2016 14 - Other: See Comments Comments: nightmares Date Reviewed: 10/23/2024 Reviewed by: Nita Tovar RN - Fully Assessed Reason for Visit: Established Patient [175] Cmt: Nail care Established Patient [175] Cmt: Nail care Primary Visit Diagnosis:Onychomycosis [B35.1] Other Visit Diagnoses:Pain in toe of right foot [M79.674] Pain in toe of left foot [M79.675] Ingrowing toenail [L60.0] Prescriptions as of 10/23/2024 - lisinopril (ZESTRIL) 20 mg tablet Take 1 tablet by mouth once daily. - omeprazole (PRILOSEC) 20 mg capsule Take 1 capsule by mouth once daily on an empty stomach. - metoprolol succinate ER (TOPROL XL) 50 mg 24 hr tablet Take 1 tablet by mouth once daily. - fluticasone (FLONASE ALLERGY RELIEF) 50 mcg/actuation nasal spray Use 2 Sprays in each nostril once daily. - cyanocobalamin (VITAMIN B-12) 100 mcg tab Take 100 mcg by mouth once daily. - aspirin, enteric coated (ASPIRIN, ENTERIC COATED) 81 mg EC tablet Take 81 mg by mouth once daily. Take one tablet daily Problem List As Of Date 10/23/2024 Noted Resolved Impotence of organic origin [N52.9] 06/03/2002 Tear of lateral cartilage or meniscus of knee, *09/21/2003 08/29/2016 Follow-up examination, following other surgery *09/21/2003 08/29/2016 Esophageal reflux [K21.9] 02/24/2005 03/14/2017 Other and unspecified hyperlipidemia [E78.5] 03/09/2005 12/10/2014 Malignant neoplasm of prostate (HCC) [C61] 08/22/2005 Allergic rhinitis, cause unspecified [J30.9] 06/21/2006 03/14/2017 Contact dermatitis and other eczema due to plan*09/14/2006 03/14/2017 Contact dermatitis and other eczema, due to uns*09/14/2006 03/14/2017 Unspecified pruritic disorder [L29.9] 09/14/2006 03/14/2017 Seborrheic dermatitis, unspecified [L21.9] 09/14/2006 03/14/2017 Essential hypertension [I10] 01/22/2007 Neoplasm of Uncertain Behavior(NUB) of skin: po*12/19/2009 03/14/2017 Actinic Keratosis (Premalignant AK) [L57.0] 12/19/2009 03/14/2017 Actinic Damage///Sun-damaged skin [L57.8] 12/19/2009 12/19/2009 Irritated//Inflamed Seborrheic Keratosis [L82.0]12/19/2009 03/11/2015 Actinic Damage///Sun-damaged skin [L57.8] 12/19/2009 03/14/2017 Other and unspecified malignant neoplasm of sca*02/23/2010 03/14/2017 H/O BCC skin cancer: other malignant neoplasm *06/21/2010 Other seborrheic keratosis [L82.1] 06/21/2010 03/11/2015 Solar lentigo [L81.4] 06/21/2010 07/28/2015 Personal history of malignant melanoma of skin *06/21/2010 IBS (irritable bowel syndrome) [K58.9] 02/05/2014 03/20/2018 Irritable bowel syndrome [K58.9] 05/14/2014 05/14/2014 Mixed hyperlipidemia [E78.2] 12/04/2014 Insomnia [G47.00] more content not included)... Normal [facility] CNOVon 10-13-2024 CNOV Office Visit (ORTHWS ) -------- ANDREW PERAZA MD ([id number]) 1940 M Date Time Provider Department 10/13/24 10:30 AM TRAN YONUG During your visit today, we recorded the following information about you: Trinidad Brownlee MA 10/13/2024 11:06 AM Signed AMB ROOMING INTAKE FLOWSHEET DATA Pain Pain Level: 5 Pain Location: Hand-Right Description: Sharp Duration Amount of Time: (ongoing) Frequency: Intermittent Intervention/Comfort measure: Other: See comment (none) Tran Young PA-C 10/13/2024 11:06 AM Signed Tran Young PA-C Department of Orthopaedics Orthopaedics [address] [facility] [address] Dept: [phone] Dept October 13, 2024 CHIEF COMPLAINT: Follow Up of the Right Hand Thumb Pain: - Pain relief from previous cortisone injection lasted a few weeks. - Pain has returned to previous levels. - Hesitant about surgery due to concerns about recovery and dependence on others. - Lives alone with two cats; has a son in town but does not want to rely on him daily. - Previous successful L5 injections for sciatica by Dr. Leach, with the third injection providing long-term relief, He is hoping that the CMC injections will also be cumulative and that this third steroid injection will alleviate his pain. 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 - Discussed surgical intervention as a definitive treatment option, including expected 3-month recovery, need for hand therapy, and temporary restrictions on lifting, pushing, and pulling; patient expressed concerns about post-operative pain and functional limitations. - Reviewed typical outcomes and differences in recovery experiences; addressed patient?s questions regarding pain relief and recovery. - Patient elected to continue with corticosteroid injections for symptom management at this time. - Follow-up in 91 days to reassess symptoms and discuss further management options as needed. 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 Gen:There were no vitals taken for this visit. nl development, non obese, no deformities ENT: Normocephalic, normal hearing, moist mucosa CV: Pulses:Radial= 2+ and symmetric, capillary refill < 2 secs, no peripheral edema/varicosities Skin: no rash, bruising or lesions. Good turgor. Psych: cooperative and appropriate, alert and oriented x 3, good mood and affect. Musculoskeletal: right thumb with mild swelling at the base. Mild tenderness to palpation at the dorsal capsule with very minimal crepitance. Painful grind test. Good motion at the MCP without hyperextension. Same with PIP and no locking or catching. Median, radial and ulnar nerves are intact. Non-tender first dorsal compartment with a negative Bianka's test. In addition to the comprehensive evaluation, assessment and plan outlined above, and as a distinct and separate element to the visit today, separate from surgical discussion right thumb, we have made the determination to proceed with an injection to aid in the management of the patient's condition. We discussed the risks, benefits, alternatives and expected outcomes of this injection in detail, and the patient agreed to proceed. The procedure was performed as detailed below. Small Joint Arthro/Inj: R thumb CMC 10/13/2024 11:02 AM The procedure site was prepped in the usual sterile fashion. Medications: 3 mg betamethasone acetate-betamethasone sodium phosphate 6 mg/mL Anesthetics: 0.5 mL lidocaine (PF) 10 mg/mL (1 %) Outcome: tolerated well, no immediate complications Post-injection instructions were reviewed with the patient and the patient voiced understanding of these instructions. Informed Consent Consent Obtained: Verbal [place] Protocol A moment to CARE was completed. SIGN IN Sign in communication not applicable due to emergent procedure. Personnel directly involved with the procedure wore the appropriate PPE. Special Equipment: N/A Patient/Surrogate Stated/Verified: Patient name, Date of , Relevant allergies and Intended procedure TIME OUT Relevant labs, photos, and/or imaging studies have been reviewed. Consent documented and matches the intended procedure. Correct side/site marked and visible. Medications required for procedure verified. No fire risk assessment and interventions applicable. No implant(s) inserted. SIGN OUT No specimen collected. Imaging: IMPRESSION: (more content not included)... Normal [facility] Small Joint Arthro/Inj: R th umb CMCon 10-13-2024 Tran Young PA -C 10/13/2024 11:06 AM Small Joint Arthro/Inj: R thumb CMC 10/13/2024 11:02 AM The procedure site was prepped in the usual sterile fashion. Medications: 3 mg betamethasone acetate-betamethasone sodium phosphate 6 mg/mL Anesthetics: 0.5 mL lidocaine (PF) 10 mg/mL (1 %) Outcome: tolerated well, no immediate complications Post-injection instructions were reviewed with the patient and the patient voiced understanding of these instructions. Informed Consent Consent Obtained: Verbal [place] Protocol A moment to CARE was completed. SIGN IN Sign in communication not applicable due to emergent procedure. Personnel directly involved with the procedure wore the appropriate PPE. Special Equipment: N/A Patient/Surrogate Stated/Verified: Patient name, Date of , Relevant allergies and Intended procedure TIME OUT Relevant labs, photos, and/or imaging studies have been reviewed. Consent documented and matches the intended procedure. Correct side/site marked and visible. Medications required for procedure verified. No fire risk assessment and interventions applicable. No implant(s) inserted. SIGN OUT No specimen collected. [facility] CNOVon 09-02-2024 CNOV Office Visit (PODIWS ) -------- ANDREW PERAZA MD ([id number]) 1940 M Date Time Provider Department 09/02/24 4:00 PM APOLINAR BLEVINS During your visit today, we recorded the following information about you: Mary Rand LPN 09/09/2024 10:51 PM Signed AMB ROOMING INTAKE FLOWSHEET DATA Patient presents with: Right Great Toe - Established Patient, Follow Up, Ingrown Toenail: 2 week follow up procedure Left Great Toe - Established Patient, Follow Up, Ingrown Toenail: 2 week follow up procedure LILIBETH Barrios Matthew 09/02/2024 4:26 PM Signed Your toe is looking very well Continue with topical antibiotic and a band aide for the next 1 week or so until completely healed If you have any questions, please feel free to call me My cell number is [phone] Apolinar Blevins 09/09/2024 10:51 PM Signed FOLLOW UP PODIATRIC OFFICE VISIT Chief Complaint: This 83 year old who presents for follow up:left hallux medial nail border matrixectomy Patient presents to clinic for follow-up matrixectomy of left hallux medial nail border Patient denies any pain Feels very well. Denies any drainage. PAIN EVALUATION No data found in the last 1 encounters. Hemoglobin A1C Date Value Ref Range Status 04/22/2024 5.5 4.3 - 5.6 % Final Comment: [place] [employer] guidelines indicate that patients with HgbA1c in the range 5.7-6.4% are at increased risk for development of diabetes, and intervention by lifestyle modification may be beneficial. HgbA1c greater or equal to 6.5% is considered diagnostic of diabetes. PCP: Ross Blandon MD PAST MEDICAL HISTORY Diagnosis Date Advance directive discussed with patient 04/19/2022 Discussed 04/2022: up to date Aortic root dilatation 04/18/2021 Arthritis of knee 08/02/2016 DDD (degenerative disc disease), cervical 04/18/2021 May need prn prednisone. DDD (degenerative disc disease), lumbar 03/15/2017 Diverticulosis of colon (without mention of hemorrhage) Diverticulosis of large intestine without hemorrhage 03/21/2018 Added automatically from request for surgery [id number] Elevated blood sugar 04/19/2022 Essential hypertension 01/22/2007 03/11/2019: Home BP Cuff Validated. 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 omeprazole (PRILOSEC) 20 mg capsule Take 1 capsule by mouth once daily on an empty stomach. metoprolol succinate ER (TOPROL XL) 50 mg 24 hr tablet Take 1 tablet by mouth once daily. fluticasone (FLONASE ALLERGY RELIEF) 50 mcg/actuation nasal spray Use 2 Sprays in each nostril once daily. (Patient not taking: Reported on 07/14/2024) cyanocobalamin (VITAMIN B-12) 100 mcg tab Take 100 mcg by mouth once daily. aspirin, enteric coated (ASPIRIN, ENTERIC COATED) 81 mg EC tablet Take 81 mg by mouth once daily. Take one tablet daily No current facility-administered medications for this visit. ALLERGIES Allergen Reactions Penicillin G Hives Urticaria Reaction details: hives occurred within hours after administration at age 25 Outcome of reaction: stopped agent Tolerated the following: Penicillin g Zoloft [Sertraline * Other: See Comments nightmares PAST SURGICAL HISTORY Procedure Laterality Date ABDOMINAL SURGERY HX ARTHRP KNE CONDYLEANDPLATU MEDIALANDLAT COMPARTMENTS Right 10/30/2016 Knee replacement, total COLONOSCOPY FLX DX W/COLLJ SPEC WHEN PFRMD 05/14/2014 Colonoscopy COLONOSCOPY FLX DX W/COLLJ SPEC WHEN PFRMD 04/29/2018 Colonoscopy COLONOSCOPY FLX DX W/COLLJ SPEC WHEN PFRMD 09/16/2020 COLONOSCOPY W/BIOPSY SINGLE/MULTIPLE 04/29/2010 DESTRUCTION, 1ST LESION 06/19/2012 Amputation/cauterization right medial malleolus EGD ESOPHAGOGASTRODUODENOSCO PY TRANSORAL ADDIS (more content not included)... Normal [facility] CNOVon 08-20-2024 CNOV Office Visit (PODIMM ) -------- ANDREW PERAZA MD ([id number]) 1940 M Date Time Provider Department 08/20/24 9:15 AM APOLINAR BLEVINS PODIMM During your visit today, we recorded the following information about you: Mary Rand LPN 08/20/2024 10:26 AM Signed AMB ROOMING INTAKE FLOWSHEET DATA Pain Pain Level: 5 Pain Location: Toe Description: Sore Duration Amount of Time: 1 Duration Units: Months Frequency: Continuous Intervention/Comfort measure: Relaxation, Reposition Patient presents with: Right Great Toe - Established Patient, Follow Up, Ingrown Toenail, Pain Left Great Toe - Established Patient, Follow Up, Ingrown Toenail, Pain LILIBETH Barrios Matthew 08/20/2024 10:26 AM Signed FOLLOW UP PODIATRIC OFFICE VISIT Chief Complaint: This 83 year old who presents for follow up:ingrowing toenail. Patient presents to clinic for evaluation of both feet. His greatest concern is pain to the medial border of left hallux. He states since he had his nail cut in July, the nail has been painful. He has tendency to develop ingrowing toenails. He had ingrown on right great toe and this was treated in 2023 with partial nail matrixectomy. He has not had any problems since. He denies any redness or drainage. He is scheduled to go to [place] in 3 weeks. PAIN EVALUATION 08/20/2024 0905 Pain Level: 5 Pain Location: Toe Description: Sore Duration Amount of Time: 1 Duration Units: Months Frequency: Continuous Intervention/Comfort measure: Relaxation;Reposition Hemoglobin A1C Date Value Ref Range Status 04/22/2024 5.5 4.3 - 5.6 % Final Comment: [place] [employer] guidelines indicate that patients with HgbA1c in the range 5.7-6.4% are at increased risk for development of diabetes, and intervention by lifestyle modification may be beneficial. HgbA1c greater or equal to 6.5% is considered diagnostic of diabetes. PCP: Ross Blandon MD PAST MEDICAL HISTORY Diagnosis Date Advance directive discussed with patient 04/19/2022 Discussed 04/2022: up to date Aortic root dilatation 04/18/2021 Arthritis of knee 08/02/2016 DDD (degenerative disc disease), cervical 04/18/2021 May need prn prednisone. DDD (degenerative disc disease), lumbar 03/15/2017 Diverticulosis of colon (without mention of hemorrhage) Diverticulosis of large intestine without hemorrhage 03/21/2018 Added automatically from request for surgery [id number] Elevated blood sugar 04/19/2022 Essential hypertension 01/22/2007 03/11/2019: Home BP Cuff Validated. 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 omeprazole (PRILOSEC) 20 mg capsule Take 1 capsule by mouth once daily on an empty stomach. metoprolol succinate ER (TOPROL XL) 50 mg 24 hr tablet Take 1 tablet by mouth once daily. cyanocobalamin (VITAMIN B-12) 100 mcg tab Take 100 mcg by mouth once daily. aspirin, enteric coated (ASPIRIN, ENTERIC COATED) 81 mg EC tablet Take 81 mg by mouth once daily. Take one tablet daily fluticasone (FLONASE ALLERGY RELIEF) 50 mcg/actuation nasal spray Use 2 Sprays in each nostril once daily. (Patient not taking: Reported on 07/14/2024) No current facility-administered medications for this visit. ALLERGIES Allergen Reactions Penicillin G Hives Urticaria Reaction details: hives occurred within hours after administration at age 25 Outcome of reaction: stopped agent Tolerated the following: Penicillin g Zoloft [Sertraline * Other: See Comments nightmares PAST SURGICAL HISTORY Procedure Laterality Date ABDOMINAL SURGERY HX ARTHRP KNE CONDYLEANDPLATU MEDIALANDLAT COMPARTMENTS Right 10/30/2016 Knee replacement, total COLONOSCOPY FLX DX W/COLLJ SPEC WHEN PFRMD 05/14/2014 (more content not included)... Normal [facility] CNPMary 08-18-2024 CNPN Telephone (PODIWS) -------- ANDREW PERAZA MD ([id number]) 1940 M Date Time Provider Department 08/18/24 APOLINAR BLEVINS During your visit today, we recorded the following information about you: Trinidad Brownlee MA 08/18/2024 9:14 AM Signed Received a call from the patient. He reports his great toe is really sore and he thinks that he may have the start of an ingrown nail. Denies any drainage. He reports the pain woke him last night when the blankets brushed against the toe. He would like an appointment this week, if possible. I did not see any openings on the schedule. He asked if Podiatry nurse could give him a call back. [phone]. Mary Rand LPN 08/18/2024 9:31 AM Signed Called and spoke with patient. Patient is scheduled for Sunday08/20/2024 at 9:15 in [place]. Mary Rand LPN Allergies As of Date: 08/18/2024 Noted Allergy Reaction PENICILLIN G 06/03/2002 4 - Hives Comments: Urticaria Reaction details: hives occurred within hours after administration at age 25 Outcome of reaction: stopped agent Tolerated the following: Penicillin g ZOLOFT (SERTRALINE HCL) 12/11/2016 14 - Other: See Comments Comments: nightmares Date Reviewed: 08/04/2024 Reviewed by: Radha Dee MA - Fully Assessed Reason for Visit: Appointment [186] Prescriptions as of 08/18/2024 - lisinopril (ZESTRIL) 20 mg tablet Take 1 tablet by mouth once daily. - omeprazole (PRILOSEC) 20 mg capsule Take 1 capsule by mouth once daily on an empty stomach. - metoprolol succinate ER (TOPROL XL) 50 mg 24 hr tablet Take 1 tablet by mouth once daily. - fluticasone (FLONASE ALLERGY RELIEF) 50 mcg/actuation nasal spray Use 2 Sprays in each nostril once daily. - cyanocobalamin (VITAMIN B-12) 100 mcg tab Take 100 mcg by mouth once daily. - aspirin, enteric coated (ASPIRIN, ENTERIC COATED) 81 mg EC tablet Take 81 mg by mouth once daily. Take one tablet daily Problem List As Of Date 08/18/2024 Noted Resolved Impotence of organic origin [N52.9] 06/03/2002 Tear of lateral cartilage or meniscus of knee, *09/21/2003 08/29/2016 Follow-up examination, following other surgery *09/21/2003 08/29/2016 Esophageal reflux [K21.9] 02/24/2005 03/14/2017 Other and unspecified hyperlipidemia [E78.5] 03/09/2005 12/10/2014 Malignant neoplasm of prostate (HCC) [C61] 08/22/2005 Allergic rhinitis, cause unspecified [J30.9] 06/21/2006 03/14/2017 Contact dermatitis and other eczema due to plan*09/14/2006 03/14/2017 Contact dermatitis and other eczema, due to uns*09/14/2006 03/14/2017 Unspecified pruritic disorder [L29.9] 09/14/2006 03/14/2017 Seborrheic dermatitis, unspecified [L21.9] 09/14/2006 03/14/2017 Essential hypertension [I10] 01/22/2007 Neoplasm of Uncertain Behavior(NUB) of skin: po*12/19/2009 03/14/2017 Actinic Keratosis (Premalignant AK) [L57.0] 12/19/2009 03/14/2017 Actinic Damage///Sun-damaged skin [L57.8] 12/19/2009 12/19/2009 Irritated//Inflamed Seborrheic Keratosis [L82.0]12/19/2009 03/11/2015 Actinic Damage///Sun-damaged skin [L57.8] 12/19/2009 03/14/2017 Other and unspecified malignant neoplasm of sca*02/23/2010 03/14/2017 H/O BCC skin cancer: other malignant neoplasm *06/21/2010 Other seborrheic keratosis [L82.1] 06/21/2010 03/11/2015 Solar lentigo [L81.4] 06/21/2010 07/28/2015 Personal history of malignant melanoma of skin *06/21/2010 IBS (irritable bowel syndrome) [K58.9] 02/05/2014 03/20/2018 Irritable bowel syndrome [K58.9] 05/14/2014 05/14/2014 Mixed hyperlipidemia [E78.2] 12/04/2014 Insomnia [G47.00] 12/04/2014 Hip bursitis [M70.70] 04/19/2016 08/29/2016 Primary osteoarthritis of right knee [M17.11] 09/06/2016 10/31/2016 Arthritis of right knee [M17.11] 10/30/2016 10/31/2016 Situational depression [F43.21] 11/24/2016 03/14/2017 Status post total knee replacement, right [Z96.*12/07/2016 Right sided sciatica [M54.31] 12/07/2016 03/20/2018 Intervertebral disc disorder with radiculopathy*01/12/2017 03/20/2018 Intervertebral disc stenosis of neural canal of*01/12/2017 03/20/2018 Tubular adenoma of colon [D12.6] 03/14/2017 DDD (degenerative disc disease), lumbar [M51.36*03/15/2017 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*03/15/2017 Right lumbar radiculitis [M54.16] 03/15/2017 03/20/2018 Obstructive sleep apnea [G47.33] 03/15/2017 Chronic pain of right knee [M25.561, G89.29] 06/22/2017 03/20/2018 History of colonic polyps [Z86.0100] 03/21/2018 Diverticulosis of large intestine without hemor*03/21/2018 GERD without esophagitis [K21.9] 03/21/2018 Positive occult stool blood test [R19.5] 09/16/2020 09/16/2020 Cervical strain [S16.1XXA] 02/10/2021 Medicare annual wellness visit, subsequent [Z00*04/18/2021 Living will on file [[id number]] 04/18/2021 DDD (degenerative disc disease), cervical [M50.*04/18/2021 Aortic root dilatation (HCC) [I77.810] 04/18/2021 Medication management [Z79.899] (more content not included)... Normal [facility] CNOVon 08-04-2024 CNOV Office Visit (ORTHWS ) -------- ANDREW PERAZA MD ([id number]) 1940 M Date Time Provider Department 08/04/24 10:00 AM TRAN YOUNG During your visit today, we recorded the following information about you: Radha Dee MA 08/04/2024 10:42 AM Signed Patient presents with: Right Hand - Follow Up: 3 weeks post visit right thumb CMC arthritis - (14 weeks post injection - here for injection) AMB ROOMING INTAKE FLOWSHEET DATA Pain Pain Level: (1-6) Pain Location: (Right thumb) Description: Sharp Duration Amount of Time: (Ongoing) Frequency: Continuous Intervention/Comfort measure: Medication Patient states he is taking Tylenol for the pain. Here to discuss injection. Tran Young PA-C 08/04/2024 10:42 AM Signed Small Joint Arthro/Inj: R thumb CMC 08/04/2024 10:42 AM The procedure site was prepped in the usual sterile fashion. Medications: 3 mg betamethasone acetate-betamethasone sodium phosphate 6 mg/mL Anesthetics: 0.5 mL lidocaine (PF) 10 mg/mL (1 %) Outcome: tolerated well, no immediate complications Post-injection instructions were reviewed with the patient and the patient voiced understanding of these instructions. Informed Consent Consent Obtained: Verbal [place] Protocol A moment to CARE was completed. SIGN IN Sign in communication not applicable due to emergent procedure. Personnel directly involved with the procedure wore the appropriate PPE. Special Equipment: N/A Patient/Surrogate Stated/Verified: Patient name, Date of , Relevant allergies and Intended procedure TIME OUT Relevant labs, photos, and/or imaging studies have been reviewed. Consent documented and matches the intended procedure. Correct side/site marked and visible. Medications required for procedure verified. No fire risk assessment and interventions applicable. No implant(s) inserted. SIGN OUT No specimen collected. No post-procedure POC communication to the patient's multidisciplinary team (including the bedside nurse for hospitalized patients) applicable. Referring Provider: ROMEL QUEEN [[id number]] Allergies As of Date: 08/04/2024 Noted Allergy Reaction PENICILLIN G 06/03/2002 4 - Hives Comments: Urticaria Reaction details: hives occurred within hours after administration at age 25 Outcome of reaction: stopped agent Tolerated the following: Penicillin g ZOLOFT (SERTRALINE HCL) 12/11/2016 14 - Other: See Comments Comments: nightmares Date Reviewed: 08/04/2024 Reviewed by: Radha Dee MA - Fully Assessed Reason for Visit: Follow Up [171] Cmt: 3 weeks post visit right thumb CMC arthritis - (14 weeks post injection - here for injection) Primary Visit Diagnosis: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 [M18.11] Order(s):Small Joint Arthro/Inj: R thumb CMC [OAQ623] Order #: [id number] [] betamethasone acetate-betamethasone sodium phosphate 3 mg injection (CELESTONE)Disp: Rfl: [] lidocaine (PF) 10 mg/mL (1 %) 0.5 mL injection (XYLOCAINE)Disp: Rfl: Prescriptions as of 08/04/2024 - lisinopril (ZESTRIL) 20 mg tablet Take 1 tablet by mouth once daily. - omeprazole (PRILOSEC) 20 mg capsule Take 1 capsule by mouth once daily on an empty stomach. - metoprolol succinate ER (TOPROL XL) 50 mg 24 hr tablet Take 1 tablet by mouth once daily. - fluticasone (FLONASE ALLERGY RELIEF) 50 mcg/actuation nasal spray Use 2 Sprays in each nostril once daily. - cyanocobalamin (VITAMIN B-12) 100 mcg tab Take 100 mcg by mouth once daily. - aspirin, enteric coated (ASPIRIN, ENTERIC COATED) 81 mg EC tablet Take 81 mg by mouth once daily. Take one tablet daily Problem List As Of Date 08/04/2024 Noted Resolved Impotence of organic origin [N52.9] 06/03/2002 Tear of lateral cartilage or meniscus of knee, *09/21/2003 08/29/2016 Follow-up examination, following other surgery *09/21/2003 08/29/2016 Esophageal reflux [K21.9] 02/24/2005 03/14/2017 Other and unspecified hyperlipidemia [E78.5] 03/09/2005 12/10/2014 Malignant neoplasm of prostate (HCC) [C61] 08/22/2005 Allergic rhinitis, cause unspecified [J30.9] 06/21/2006 03/14/2017 Contact dermatitis and other eczema due to plan*09/14/2006 03/14/2017 Contact dermatitis and other eczema, due to uns*09/14/2006 03/14/2017 Unspecified pruritic disorder [L29.9] 09/14/2006 03/14/2017 Seborrheic dermatitis, unspecified [L21.9] 09/14/2006 03/14/2017 Essential hypertension [I10] 01/22/2007 Neoplasm of Uncertain Behavior(NUB) of skin: po*12/19/2009 03/14/2017 Actinic Keratosis (Premalignant AK) [L57.0] 12/19/2009 03/14/2017 Actinic Damage///Sun-damaged skin [L57.8] 12/19/2009 12/19/2009 Irritated//Inflamed Seborrheic Keratosis [L82.0]12/19/2009 03/11/2015 Actinic Damage///Sun-damaged skin [L57.8] 12/19/2009 03/14/2017 Other and unspecified malignant neoplasm of sca*02/23/2010 03/14/2017 H/O BCC skin c (more content not included)... Normal [facility] Small Joint Arthro/Inj: R th umb CMCon 08-04-2024 Tran Young PA -C 08/04/2024 10:42 AM Small Joint Arthro/Inj: R thumb CMC 08/04/2024 10:42 AM The procedure site was prepped in the usual sterile fashion. Medications: 3 mg betamethasone acetate-betamethasone sodium phosphate 6 mg/mL Anesthetics: 0.5 mL lidocaine (PF) 10 mg/mL (1 %) Outcome: tolerated well, no immediate complications Post-injection instructions were reviewed with the patient and the patient voiced understanding of these instructions. Informed Consent Consent Obtained: Verbal [place] Protocol A moment to CARE was completed. SIGN IN Sign in communication not applicable due to emergent procedure. Personnel directly involved with the procedure wore the appropriate PPE. Special Equipment: N/A Patient/Surrogate Stated/Verified: Patient name, Date of , Relevant allergies and Intended procedure TIME OUT Relevant labs, photos, and/or imaging studies have been reviewed. Consent documented and matches the intended procedure. Correct side/site marked and visible. Medications required for procedure verified. No fire risk assessment and interventions applicable. No implant(s) inserted. SIGN OUT No specimen collected. No post-procedure POC communication to the patient's multidisciplinary team (including the bedside nurse for hospitalized patients) applicable. [facility] CNOVon 07-14-2024 CNOV Office Visit (PODIWS ) -------- ANDREW PERAZA MD ([id number]) 1940 M Date Time Provider Department 07/14/24 9:00 AM APOLINAR BLEVINS PODIWS During your visit today, we recorded the following information about you: Mary Rand LPN 07/14/2024 9:07 AM Signed AMB ROOMING INTAKE FLOWSHEET DATA Patient presents with: Left Foot - Established Patient, Follow Up, nail care Right Foot - Established Patient, Follow Up, nail care LILIBETH Barrios Matthew 07/14/2024 9:07 AM Signed Subjective: Patient presents to clinic c/o painful toenails. They state that the nails are especially painful with shoe gear and pressure. Patient states that nails left 3rd toenail is painful. No other pedal complaints at this time. Patient states no change in medications or medical history since last visit. Objective: Patient presents to clinic ambulating in dress shoes Vasc: DP and PT pulses are palpable bilateral. CFT is less than 5 seconds bilateral. Skin temperature is warm to cool proximal to distal bilateral. There is no edema or varicosities noted. Neuro: Protective sensation is intact to the foot and toes when tested with the 5.07 SWM bilateral. Vibratory sensation is decreased at the hallux IPJ bilateral. The hallux is downgoing bilateral. Derm: Nails 1-5 b/l are painful, discolored-yellow, thick, crumbly, dystrophic and with subungal debris. Skin is of normal turgor, texture and hair growth is present bilateral. There are no hyperkeratosis, ulcerations, scars, verruca or other lesions noted. Ortho: Muscle strength is 5/5 for all pedal groups tested. Ankle joint DF is full with the knee extended with no pain or crepitus noted. 1st MPJ ROM is full bilateral. Assessment: (B35.1) Onychomycosis (primary encounter diagnosis) (M79.674) Pain in toe of right foot (M79.675) Pain in toe of left foot Plan: Patient was seen and evaluated. Nails 1-5 bilateral were debrided in length and thickness. Patient is to RTC in 3-4 months. Apolinar Blevins DPM Referring Provider: APOLINAR BLEVINS [[id number]] Allergies As of Date: 07/14/2024 Noted Allergy Reaction PENICILLIN G 06/03/2002 4 - Hives Comments: Urticaria Reaction details: hives occurred within hours after administration at age 25 Outcome of reaction: stopped agent Tolerated the following: Penicillin g ZOLOFT (SERTRALINE HCL) 12/11/2016 14 - Other: See Comments Comments: nightmares Date Reviewed: 07/14/2024 Reviewed by: Mary Rand LPN - Fully Assessed Reason for Visit: Established Patient [175] Follow Up [171] nail care [Other] Established Patient [175] Follow Up [171] nail care [Other] Primary Visit Diagnosis:Onychomycosis [B35.1] Other Visit Diagnoses:Pain in toe of right foot [M79.674] Pain in toe of left foot [M79.675] Prescriptions as of 07/14/2024 - lisinopril (ZESTRIL) 20 mg tablet Take 1 tablet by mouth once daily. - omeprazole (PRILOSEC) 20 mg capsule Take 1 capsule by mouth once daily on an empty stomach. - metoprolol succinate ER (TOPROL XL) 50 mg 24 hr tablet Take 1 tablet by mouth once daily. - fluticasone (FLONASE ALLERGY RELIEF) 50 mcg/actuation nasal spray Use 2 Sprays in each nostril once daily. - cyanocobalamin (VITAMIN B-12) 100 mcg tab Take 100 mcg by mouth once daily. - aspirin, enteric coated (ASPIRIN, ENTERIC COATED) 81 mg EC tablet Take 81 mg by mouth once daily. Take one tablet daily Problem List As Of Date 07/14/2024 Noted Resolved Impotence of organic origin [N52.9] 06/03/2002 Tear of lateral cartilage or meniscus of knee, *09/21/2003 08/29/2016 Follow-up examination, following other surgery *09/21/2003 08/29/2016 Esophageal reflux [K21.9] 02/24/2005 03/14/2017 Other and unspecified hyperlipidemia [E78.5] 03/09/2005 12/10/2014 Malignant neoplasm of prostate (HCC) [C61] 08/22/2005 Allergic rhinitis, cause unspecified [J30.9] 06/21/2006 03/14/2017 Contact dermatitis and other eczema due to plan*09/14/2006 03/14/2017 Contact dermatitis and other eczema, due to uns*09/14/2006 03/14/2017 Unspecified pruritic disorder [L29.9] 09/14/2006 03/14/2017 Seborrheic dermatitis, unspecified [L21.9] 09/14/2006 03/14/2017 Essential hypertension [I10] 01/22/2007 Neoplasm of Uncertain Behavior(NUB) of skin: po*12/19/2009 03/14/2017 Actinic Keratosis (Premalignant AK) [L57.0] 12/19/2009 03/14/2017 Actinic Damage///Sun-damaged skin [L57.8] 12/19/2009 12/19/2009 Irritated//Inflamed Seborrheic Keratosis [L82.0]12/19/2009 03/11/2015 Actinic Damage///Sun-damaged skin [L57.8] 12/19/2009 03/14/2017 Other and unspecified malignant neoplasm of sca*02/23/2010 03/14/2017 H/O BCC skin cancer: other malignant neoplasm *06/21/2010 Other seborrheic keratosis [L82.1] 06/21/2010 03/11/2015 Solar lentigo [L81.4] 06/21/2010 07/28/2015 Personal history of malignant melanoma of skin *06/21/2010 IBS (irritable bowel syndrom (more content not included)... Normal [facility] CNOV Office Visit (ORTHWS ) -------- ANDREW PERAZA MD ([id number]) 1940 M Date Time Provider Department 07/14/24 8:30 AM TRAN YOUNG During your visit today, we recorded the following information about you: Radha Dee MA 07/14/2024 8:55 AM Signed Patient presents with: Right Hand - Established Patient, Pain: 11 weeks post visit 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 AMB ROOMING INTAKE FLOWSHEET DATA Pain Pain Level: (0-7) Pain Location: Hand-Right Description: Sharp Duration Amount of Time: (Ongoing) Frequency: Intermittent Intervention/Comfort measure: Medication Patient states injection helped. Took the pain completely away for 4 days. Taking Tylenol as needed for the pain. CMC brace is uncomfortable. 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 Pain today is anywhere from a 0-7 out of 10 sharp aching. Pain is worse when he is doing certain activities that he cannot specify what activities these are. He had a CMC corticosteroid injection 11 weeks ago. Not taking any type of an oral anti-inflammatory, did not find the [place] forte brace to be helpful. The injection was extremely helpful but only lasted for 4 days. He has status post right carpal tunnel release with Dr. Queen in 2019. He also dislocated his right second MCP joint in and had to have an open reduction in 2019. He complains that the combination of the thumb arthritis and lack of movement in the index finger makes things functionally difficult. 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 We did discuss his surgical options as far as a CMC arthroplasty. The patient is not interested in surgical options at this time. He would like to return at the 91-day zaida and repeat the CMC injection just to see if a second injection is more beneficial than the first. We briefly discussed getting him into one of our surgeons that would be able to offer additional options for the arthritis in his second MCP joint. Will continue to monitor patient for 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 (primary encounter diagnosis) Mcp subluxation, sequela, patient to schedule visit as per follow up discussed. Andrew Peraza MD was advised as to contrast therapies and/or to take analgesics/anti-inflamma tories as needed and all contraindications were reviewed. 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 Gen:There were no vitals taken for this visit. nl development, non obese, no deformities ENT: Normocephalic, normal hearing, moist mucosa CV: Pulses:Radial= 2+ and symmetric, capillary refill < 2 secs, no peripheral edema/varicosities Skin: no rash, bruising or lesions. Good turgor. Psych: cooperative and appropriate, alert and oriented x 3, good mood and affect. Musculoskeletal: right thumb with mild swelling at the base. Mild tenderness to palpation at the dorsal capsule with very minimal crepitance. Painful grind test. Good motion at the MCP without hyperextension. Same with PIP and no locking or catching. Arthritic changes in the second MCP joint, some ulnar deviation of the index digit. Median, radial and ulnar nerves are intact. Non-tender first dorsal compartment with a negative Bianka's test. Imaging: IMPRESSION: Osteoarthritis as described. Gasfitter: PAUL Transcribe Date/Time: Apr 30 2024 8:21P Dictated by : YUNIER PAT MD This examination was interpreted and the report reviewed and electronically signed by: YUNIER PAT MD on Apr 30 2024 8:21PM EST Results-Findings * * *Final Report* * * DATE OF EXAM: Apr 28 2024 10:32AM [id number] - XR HAND 3V PA/LAT/OBL RT / PROCEDURE REASON: Right hand pain * * * * Physician Interpretation * * * * EXAMINATION / TECHNIQUE: XR HAND 3V PA/LAT/OBL RT HISTORY: PT STATES RIGHT HAND INJURY YEARS AGO HAVING RIGHT HAND PAIN AGAIN Right hand pain COMPARISON: 07/07/2019. RESULT: No acute fracture or dislocation is identified. Mild triscaphe, severe first CMC joint, moderate second MCP joint, and scattered interphalangeal joint osteoarthritis. No osseous erosion. Supporting Subjective Information Below: Past Surgical (more content not included)... Normal [facility] CNTHERAPYon 06-11-2024 CNTHERAPY OT/PT/Speech Visit (PTWS) -------- ANDREW PERAZA MD ([id number]) 1940 M Date Time Provider Department 06/11/24 9:15 AM TERESO BALBUENA PTWS Date Time Provider Department Center 06/11/2024 9:15 AM [id number], COLIN PTWS [facility] [place] Reason for Visit: PT Discharge [752] Primary Visit Diagnosis:Balance problem [R26.89] Other Visit Diagnosis:Abnormality of gait [R26.9] Allergies As of Date: 06/11/2024 Noted Allergy Reaction PENICILLIN G 06/03/2002 4 - Hives Comments: Urticaria Reaction details: hives occurred within hours after administration at age 25 Outcome of reaction: stopped agent Tolerated the following: Penicillin g ZOLOFT (SERTRALINE HCL) 12/11/2016 14 - Other: See Comments Comments: nightmares Date Reviewed: 04/28/2024 Reviewed by: Radha Dee MA - Fully Assessed Prescriptions as of 06/11/2024 - lisinopril (ZESTRIL) 20 mg tablet Take 1 tablet by mouth once daily. - omeprazole (PRILOSEC) 20 mg capsule Take 1 capsule by mouth once daily on an empty stomach. - metoprolol succinate ER (TOPROL XL) 50 mg 24 hr tablet Take 1 tablet by mouth once daily. - fluticasone (FLONASE ALLERGY RELIEF) 50 mcg/actuation nasal spray Use 2 Sprays in each nostril once daily. - cyanocobalamin (VITAMIN B-12) 100 mcg tab Take 100 mcg by mouth once daily. - aspirin, enteric coated (ASPIRIN, ENTERIC COATED) 81 mg EC tablet Take 81 mg by mouth once daily. Take one tablet daily Parts Administrator: Therapy (PT/OT/Speech/Resp) ID: [id number] 06/11/2024 9:49 AM Author: TERESO BALBUENA Signed by TERESO BALBUENA PT on 06/11/2024 at 9:49 AM Document text: Program_ID:[id number] Access Code: [email or web address] URL: [email or web address] [employer]/ Date: 06-11-2024 Prepared By: Tereso Balbuena Program Notes Exercises - Sit to Stand Without Arm Support - 2 x daily - 4-5 x weekly - 2-3 sets - 10-15 reps - Step Up - 2 x daily - 4-5 x weekly - 2-3 sets - 10-15 reps - Side Stepping with Resistance at Ankles and Counter Support - 2 x daily - 4-5 x weekly - 2 sets - reps - Standing Hip Abduction with Resistance at Ankles and Counter Support - 2 x daily - 4-5 x weekly - 2 sets - 8-12 reps - Standing March with Counter Support - 2 x daily - 4-5 x weekly - 2 sets - 10-15 reps - Heel Toe Raises with Counter Support - 2 x daily - 4-5 x weekly - 2-3 sets - 10-15 reps Normal [facility] THERAPY NTon 06-11-2024 THERAPY NT HNO ID: [id number] Author: TERESO BALBUENA PT Service: ? Author Type: Physical Therapist Type: Therapy (PT/OT/Speech/Resp) Filed: 06/11/2024 09:49 Note Text: Program_ID:[id number] Access Code: [email or web address] URL: [email or web address] [employer]/ Date: 06-11-2024 Prepared By: Tereso Balbuena Program Notes Exercises - Sit to Stand Without Arm Support - 2 x daily - 4-5 x weekly - 2-3 sets - 10-15 reps - Step Up - 2 x daily - 4-5 x weekly - 2-3 sets - 10-15 reps - Side Stepping with Resistance at Ankles and Counter Support - 2 x daily - 4-5 x weekly - 2 sets - reps - Standing Hip Abduction with Resistance at Ankles and Counter Support - 2 x daily - 4-5 x weekly - 2 sets - 8-12 reps - Standing March with Counter Support - 2 x daily - 4-5 x weekly - 2 sets - 10-15 reps - Heel Toe Raises with Counter Support - 2 x daily - 4-5 x weekly - 2-3 sets - 10-15 reps Normal [facility] CNTHERAPYon 06-09-2024 CNTHERAPY OT/PT/Speech Visit (PTWS) -------- ANDREW PERAZA MD ([id number]) 1940 M Date Time Provider Department 06/09/24 9:30 AM IRENE TODD Date Time Provider Department Center 06/09/2024 9[facility]30 [id number] Visit: [facility] [503] Primary Visit Diagnosis:Balance problem [R26.89] Other Visit Diagnosis:Abnormality of gait [R26.9] Allergies As of Date: 06/09/2024 Noted Allergy Reaction PENICILLIN G 06/03/2002 4 - Hives Comments: Urticaria Reaction details: hives occurred within hours after administration at age 25 Outcome of reaction: stopped agent Tolerated the following: Penicillin g ZOLOFT (SERTRALINE HCL) 12/11/2016 14 - Other: See Comments Comments: nightmares Date Reviewed: 04/28/2024 Reviewed by: Radha Dee MA - Fully Assessed Prescriptions as of 06/09/2024 - lisinopril (ZESTRIL) 20 mg tablet Take 1 tablet by mouth once daily. - omeprazole (PRILOSEC) 20 mg capsule Take 1 capsule by mouth once daily on an empty stomach. - metoprolol succinate ER (TOPROL XL) 50 mg 24 hr tablet Take 1 tablet by mouth once daily. - fluticasone (FLONASE ALLERGY RELIEF) 50 mcg/actuation nasal spray Use 2 Sprays in each nostril once daily. - cyanocobalamin (VITAMIN B-12) 100 mcg tab Take 100 mcg by mouth once daily. - aspirin, enteric coated (ASPIRIN, ENTERIC COATED) 81 mg EC tablet Take 81 mg by mouth once daily. Take one tablet daily Normal [facility] CNTHERAPYon 05-29-2024 CNTHERAPY OT/PT/Speech Visit (PTWS) -------- ANDREW PERAZA MD ([id number]) 1940 M Date Time Provider Department 05/29/24 10:45 AM TERESO BALBUENA PTBUD Date Time Provider Department Center 05/29/2024 10:45 AM [id number], COLIN PTBUD [place] Reason for Visit: Physical Therapy [503] Primary Visit Diagnosis:Balance problem [R26.89] Other Visit Diagnosis:Abnormality of gait [R26.9] Allergies As of Date: 05/29/2024 Noted Allergy Reaction PENICILLIN G 06/03/2002 4 - Hives Comments: Urticaria Reaction details: hives occurred within hours after administration at age 25 Outcome of reaction: stopped agent Tolerated the following: Penicillin g ZOLOFT (SERTRALINE HCL) 12/11/2016 14 - Other: See Comments Comments: nightmares Date Reviewed: 04/28/2024 Reviewed by: Radha Dee MA - Fully Assessed Prescriptions as of 05/29/2024 - lisinopril (ZESTRIL) 20 mg tablet Take 1 tablet by mouth once daily. - omeprazole (PRILOSEC) 20 mg capsule Take 1 capsule by mouth once daily on an empty stomach. - metoprolol succinate ER (TOPROL XL) 50 mg 24 hr tablet Take 1 tablet by mouth once daily. - fluticasone (FLONASE ALLERGY RELIEF) 50 mcg/actuation nasal spray Use 2 Sprays in each nostril once daily. - cyanocobalamin (VITAMIN B-12) 100 mcg tab Take 100 mcg by mouth once daily. - aspirin, enteric coated (ASPIRIN, ENTERIC COATED) 81 mg EC tablet Take 81 mg by mouth once daily. Take one tablet daily Parts Administrator: Therapy (PT/OT/Speech/Resp) ID: [id number] 05/29/2024 11:24 AM Author: TERESO BALBUENA Signed by TERESO BALBUENA PT on 05/29/2024 at 11:24 AM Document text: Program_ID:[id number] Access Code: [email or web address] URL: [email or web address] Date: 05-29-2024 Prepared By: Tereso Balbuena Program Notes Exercises - Sit to Stand Without Arm Support - 2 x daily - 7 x weekly - 2-3 sets - 8-10 reps - Standing Hip Abduction with Resistance at Ankles and Counter Support - 2 x daily - 7 x weekly - 2 sets - 8-12 reps - Standing March with Counter Support - 2 x daily - 7 x weekly - 2 sets - 10-15 reps - Side Stepping with Resistance at Ankles and Counter Support - 2 x daily - 7 x weekly - 2 sets - reps - Heel Toe Raises with Counter Support - 2 x daily - 7 x weekly - 2-3 sets - 10-15 reps - Step Up - 2 x daily - 7 x weekly - 2 sets - 10 reps Normal [facility] THERAPY NTon 05-29-2024 THERAPY NT HNO ID: [id number] Author: TERESO BALBUENA PT Service: ? Author Type: Physical Therapist Type: Therapy (PT/OT/Speech/Resp) Filed: 05/29/2024 11:24 Note Text: Program_ID:[id number] Access Code: [email or web address] URL: [email or web address]/ Date: 05-29-2024 Prepared By: Tereso Balbuena Program Notes Exercises - Sit to Stand Without Arm Support - 2 x daily - 7 x weekly - 2-3 sets - 8-10 reps - Standing Hip Abduction with Resistance at Ankles and Counter Support - 2 x daily - 7 x weekly - 2 sets - 8-12 reps - Standing March with Counter Support - 2 x daily - 7 x weekly - 2 sets - 10-15 reps - Side Stepping with Resistance at Ankles and Counter Support - 2 x daily - 7 x weekly - 2 sets - reps - Heel Toe Raises with Counter Support - 2 x daily - 7 x weekly - 2-3 sets - 10-15 reps - Step Up - 2 x daily - 7 x weekly - 2 sets - 10 reps Normal [facility] CNTHERAPYon 05-27-2024 CNTHERAPY OT/PT/Speech Visit (PTWS) -------- ANDREW PERAZA MD ([id number]) 1940 M Date Time Provider Department 05/27/24 9:30 AM IRENE TODD PTWS Date Time Provider Department [place] 05/27/2024 9:30 AM [id number], MARIAH PTWS [facility] [place] Reason for Visit: Physical Therapy [503] Primary Visit Diagnosis:Balance problem [R26.89] Other Visit Diagnosis:Abnormality of gait [R26.9] Allergies As of Date: 05/27/2024 Noted Allergy Reaction PENICILLIN G 06/03/2002 4 - Hives Comments: Urticaria Reaction details: hives occurred within hours after administration at age 25 Outcome of reaction: stopped agent Tolerated the following: Penicillin g ZOLOFT (SERTRALINE HCL) 12/11/2016 14 - Other: See Comments Comments: nightmares Date Reviewed: 04/28/2024 Reviewed by: Radha Dee MA - Fully Assessed Prescriptions as of 05/27/2024 - metoprolol succinate ER (TOPROL XL) 50 mg 24 hr tablet Take 1 tablet by mouth once daily. - fluticasone (FLONASE ALLERGY RELIEF) 50 mcg/actuation nasal spray Use 2 Sprays in each nostril once daily. - omeprazole (PRILOSEC) 20 mg capsule Take 1 capsule by mouth once daily on an empty stomach. - lisinopril (ZESTRIL) 20 mg tablet Take 1 tablet by mouth once daily. - cyanocobalamin (VITAMIN B-12) 100 mcg tab Take 100 mcg by mouth once daily. - aspirin, enteric coated (ASPIRIN, ENTERIC COATED) 81 mg EC tablet Take 81 mg by mouth once daily. Take one tablet daily Normal [facility] CNTHERAPYon 05-22-2024 CNTHERAPY OT/PT/Speech Visit (PTWS) -------- ANDREW PERAZA MD ([id number]) 1940 M Date Time Provider Department 05/22/24 10:45 AM TERESO BALBUENA PTWS Date Time Provider Department [place] 05/22/2024 10:45 AM [id number], COLIN PTWS [facility] Reason for Visit: Physical Therapy [503] Primary Visit Diagnosis:Balance problem [R26.89] Other Visit Diagnosis:Abnormality of gait [R26.9] Allergies As of Date: 05/22/2024 Noted Allergy Reaction PENICILLIN G 06/03/2002 4 - Hives Comments: Urticaria Reaction details: hives occurred within hours after administration at age 25 Outcome of reaction: stopped agent Tolerated the following: Penicillin g ZOLOFT (SERTRALINE HCL) 12/11/2016 14 - Other: See Comments Comments: nightmares Date Reviewed: 04/28/2024 Reviewed by: Radha Dee MA - Fully Assessed Prescriptions as of 05/22/2024 - fluticasone (FLONASE ALLERGY RELIEF) 50 mcg/actuation nasal spray Use 2 Sprays in each nostril once daily. - omeprazole (PRILOSEC) 20 mg capsule Take 1 capsule by mouth once daily on an empty stomach. - metoprolol succinate ER (TOPROL XL) 50 mg 24 hr tablet Take 1 tablet by mouth once daily. - lisinopril (ZESTRIL) 20 mg tablet Take 1 tablet by mouth once daily. - cyanocobalamin (VITAMIN B-12) 100 mcg tab Take 100 mcg by mouth once daily. - aspirin, enteric coated (ASPIRIN, ENTERIC COATED) 81 mg EC tablet Take 81 mg by mouth once daily. Take one tablet daily Normal [facility] CNTHERAPYon 05-20-2024 CNTHERAPY OT/PT/Speech Visit (PTWS) -------- ANDREW PERAZA MD ([id number]) 1940 M Date Time Provider Department 05/20/24 8:45 AM IRENE TODD PTWS Date Time Provider Department Center 05/20/2024 8:45 AM [id number], MARIAH PTWS [facility] [place] Reason for Visit: Physical Therapy [503] Primary Visit Diagnosis:Balance problem [R26.89] Other Visit Diagnosis:Abnormality of gait [R26.9] Allergies As of Date: 05/20/2024 Noted Allergy Reaction PENICILLIN G 06/03/2002 4 - Hives Comments: Urticaria Reaction details: hives occurred within hours after administration at age 25 Outcome of reaction: stopped agent Tolerated the following: Penicillin g ZOLOFT (SERTRALINE HCL) 12/11/2016 14 - Other: See Comments Comments: nightmares Date Reviewed: 04/28/2024 Reviewed by: Radha Dee MA - Fully Assessed Prescriptions as of 05/20/2024 - fluticasone (FLONASE ALLERGY RELIEF) 50 mcg/actuation nasal spray Use 2 Sprays in each nostril once daily. - omeprazole (PRILOSEC) 20 mg capsule Take 1 capsule by mouth once daily on an empty stomach. - metoprolol succinate ER (TOPROL XL) 50 mg 24 hr tablet Take 1 tablet by mouth once daily. - lisinopril (ZESTRIL) 20 mg tablet Take 1 tablet by mouth once daily. - cyanocobalamin (VITAMIN B-12) 100 mcg tab Take 100 mcg by mouth once daily. - aspirin, enteric coated (ASPIRIN, ENTERIC COATED) 81 mg EC tablet Take 81 mg by mouth once daily. Take one tablet daily Normal [facility] CNTHERAPYon 05-14-2024 CNTHERAPY OT/PT/Speech Visit (PTWS) -------- ANDREW PERAZA MD ([id number]) 1940 M Date Time Provider Department 05/14/24 11:30 AM TERESO BALBUENA PTWS Date Time Provider Department Center 05/14/2024 11:30 AM [id number], COLIN PTWS [facility] [place] Reason for Visit: Physical Therapy [503] Primary Visit Diagnosis:Balance problem [R26.89] Other Visit Diagnosis:Abnormality of gait [R26.9] Allergies As of Date: 05/14/2024 Noted Allergy Reaction PENICILLIN G 06/03/2002 4 - Hives Comments: Urticaria Reaction details: hives occurred within hours after administration at age 25 Outcome of reaction: stopped agent Tolerated the following: Penicillin g ZOLOFT (SERTRALINE HCL) 12/11/2016 14 - Other: See Comments Comments: nightmares Date Reviewed: 04/28/2024 Reviewed by: Radha Dee MA - Fully Assessed Prescriptions as of 05/14/2024 - fluticasone (FLONASE ALLERGY RELIEF) 50 mcg/actuation nasal spray Use 2 Sprays in each nostril once daily. - omeprazole (PRILOSEC) 20 mg capsule Take 1 capsule by mouth once daily on an empty stomach. - metoprolol succinate ER (TOPROL XL) 50 mg 24 hr tablet Take 1 tablet by mouth once daily. - lisinopril (ZESTRIL) 20 mg tablet Take 1 tablet by mouth once daily. - cyanocobalamin (VITAMIN B-12) 100 mcg tab Take 100 mcg by mouth once daily. - aspirin, enteric coated (ASPIRIN, ENTERIC COATED) 81 mg EC tablet Take 81 mg by mouth once daily. Take one tablet daily Normal [facility] CNTHERAPYon 05-07-2024 CNTHERAPY OT/PT/Speech Visit (PTWS) -------- ANDREW PERAZA MD ([id number]) 1940 M Date Time Provider Department 05/07/24 7:45 AM TERESO BALBUENA PTWS Date Time Provider Department Center 05/07/2024 7:45 AM [id number], COLIN PTWS [facility] [place] Reason for Visit: Physical Therapy [503] Primary Visit Diagnosis:Balance problem [R26.89] Other Visit Diagnosis:Abnormality of gait [R26.9] Allergies As of Date: 05/07/2024 Noted Allergy Reaction PENICILLIN G 06/03/2002 4 - Hives Comments: Urticaria Reaction details: hives occurred within hours after administration at age 25 Outcome of reaction: stopped agent Tolerated the following: Penicillin g ZOLOFT (SERTRALINE HCL) 12/11/2016 14 - Other: See Comments Comments: nightmares Date Reviewed: 04/28/2024 Reviewed by: Radha Dee MA - Fully Assessed Prescriptions as of 05/07/2024 - fluticasone (FLONASE ALLERGY RELIEF) 50 mcg/actuation nasal spray Use 2 Sprays in each nostril once daily. - omeprazole (PRILOSEC) 20 mg capsule Take 1 capsule by mouth once daily on an empty stomach. - metoprolol succinate ER (TOPROL XL) 50 mg 24 hr tablet Take 1 tablet by mouth once daily. - lisinopril (ZESTRIL) 20 mg tablet Take 1 tablet by mouth once daily. - cyanocobalamin (VITAMIN B-12) 100 mcg tab Take 100 mcg by mouth once daily. - aspirin, enteric coated (ASPIRIN, ENTERIC COATED) 81 mg EC tablet Take 81 mg by mouth once daily. Take one tablet daily Normal [facility] [id number] 05-05-2024 [id number] HNO ID: [id number] Author: TERESO BALBUENA PT Service: ? Author Type: Physical Therapist Type: [id number] Filed: 05/05/2024 11:33 Note Text: [facility] Sports Therapy Physical Therapy Plan of Care Certification Patient Name: Andrew Peraza MD : 1940 [facility]CF #: [id number] Date: 05/05/2024 To: Ross Blandon MD From Therapist: Tereso Balbuena PT RE: Patient Certification/ Recertification Your review, approval and electronic signature are required in order to comply with Payor: MEDICARE / Plan: MEDICARE A AND B / Product Type: Medicare / regulations. 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 The patient presents with impairments in ADL's, gait, independence in exercise, overall function, and strength. Relatively good exam in regards to balance and gait for the 83-year old, however there are multiple areas of the exam that the patient could improve with structured PT for decreased progression of feeling of unsteadiness that has affected him for the past year. PROMIS? (Patient-Reported Outcomes Measurement Information System) scores were reviewed and identified as within normal limits. Prognosis for therapy is Excellent due to: current objective clinical presentation, good overall health status .The patient will benefit from skilled therapy services to meet the goals established for this plan of care as noted below. Assessment Fall Risk : Active low risk Goals for Episode of Care: established 05/05/24 Patient will report no falls. [place] in home exercise program. Patient will Improve Timed Up and Go to <9 seconds to demonstrate decreased risk of falling. Patient will improve 5 time sit to stand to demonstrate improvement in functional lower extremity strength. Patient will increase balance to 10 seconds for single limb stance on RLE and >5 seconds for single limb stance on LLE . Patient to demonstrate appropriate balance strategies to reduce risk for falls. Improve performance on 4 Stage Balance Test to >8sec tandem to reflect decreased fall risk. Improve B Hip Flexion AND ABD strength to 5/5 MMT Patient Goals: Get up on a stair or small step ladder and take something down without unsteadiness. Complete basement stairs while carrying objects. Time Frame for Goals and Treatment : 06/16/24 Planned Interventions, Frequency, and Duration: Current Frequency: 2x/week Duration: 4 weeks Total Number of Visits Planned: 8 Planned Treatment Interventions: Therapeutic exercise (88993), Neuromuscular re-education (07619), Manual therapy (27424), Therapeutic activities (55237), Self-fci management (77267), Patient/Family/Caregiver Education, Gait Training (00618) PLAN FOR NEXT VISIT: Challenge Balance; Dynamic Balance Activities. Patient demonstrates good understanding of plan of care and treatment. The above goals and plan of care were discussed and agreed upon by patient/family. For further details regarding this patient refer to the Physical Therapy electronically documented visit dated 05/05/2024. 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 Signature certifies the need for therapy services. Normal [facility] CNTHERAPYon 05-05-2024 CNTHERAPY OT/PT/Speech Visit (PTWS) -------- ANDREW PERAZA MD ([id number]) 1940 M Date Time Provider Department 05/05/24 10:00 AM TERESO BALBUENA PTWS Date Time Provider Department Center 05/05/2024 10:00 AM [id number], COL[place] PTWS [place] Reason for Visit: PT Eval [747] Primary Visit Diagnosis:Balance problem [R26.89] Other Visit Diagnosis:Abnormality of gait [R26.9] Allergies As of Date: 05/05/2024 Noted Allergy Reaction PENICILLIN G 06/03/2002 4 - Hives Comments: Urticaria Reaction details: hives occurred within hours after administration at age 25 Outcome of reaction: stopped agent Tolerated the following: Penicillin g ZOLOFT (SERTRALINE HCL) 12/11/2016 14 - Other: See Comments Comments: nightmares Date Reviewed: 04/28/2024 Reviewed by: Radha Dee MA - Fully Assessed Prescriptions as of 05/05/2024 - fluticasone (FLONASE ALLERGY RELIEF) 50 mcg/actuation nasal spray Use 2 Sprays in each nostril once daily. - omeprazole (PRILOSEC) 20 mg capsule Take 1 capsule by mouth once daily on an empty stomach. - metoprolol succinate ER (TOPROL XL) 50 mg 24 hr tablet Take 1 tablet by mouth once daily. - lisinopril (ZESTRIL) 20 mg tablet Take 1 tablet by mouth once daily. - cyanocobalamin (VITAMIN B-12) 100 mcg tab Take 100 mcg by mouth once daily. - aspirin, enteric coated (ASPIRIN, ENTERIC COATED) 81 mg EC tablet Take 81 mg by mouth once daily. Take one tablet daily Parts Administrator: Therapy (PT/OT/Speech/Resp) ID: [id number] 05/05/2024 10:39 AM Author: TERESO BALBUENA Signed by TERESO BALBUENA PT on 05/05/2024 at 10:39 AM Document text: Program_ID:[id number] Access Code: [email or web address] URL: [email or web address] Date: 05-05-2024 Prepared By: Tereso Balbuena Program Notes Exercises - Sit to Stand Without Arm Support - 2 x daily - 7 x weekly - 2-3 sets - 8-10 reps - Standing Hip Abduction with Resistance at Ankles and Counter Support - 2 x daily - 7 x weekly - 2 sets - 8-12 reps - Standing March with Counter Support - 2 x daily - 7 x weekly - 2 sets - 10-15 reps - Side Stepping with Resistance at Ankles and Counter Support - 2 x daily - 7 x weekly - 2 sets - reps Normal [facility] THERAPY NTon 05-05-2024 THERAPY NT HNO ID: [id number] Author: TERESO BALBUENA, PT Service: ? Author Type: Physical Therapist Type: Therapy (PT/OT/Speech/Resp) Filed: 05/05/2024 10:39 Note Text: Program_ID:[id number] Access Code: [email or web address] URL: [email or web address] Date: 05-05-2024 Prepared By: Tereso Balbuena Program Notes Exercises - Sit to Stand Without Arm Support - 2 x daily - 7 x weekly - 2-3 sets - 8-10 reps - Standing Hip Abduction with Resistance at Ankles and Counter Support - 2 x daily - 7 x weekly - 2 sets - 8-12 reps - Standing March with Counter Support - 2 x daily - 7 x weekly - 2 sets - 10-15 reps - Side Stepping with Resistance at Ankles and Counter Support - 2 x daily - 7 x weekly - 2 sets - reps Normal [facility] CNOVon 04-28-2024 CNOV Office Visit (ORTHWS ) -------- ANDREW PERAZA MD ([id number]) 1940 M Date Time Provider Department 04/28/24 10:30 AM TRAN YOUNG During your visit today, we recorded the following information about you: Radha Dee MA 04/30/2024 1:05 PM Signed Patient presents with: Right Hand - New: Last seen 02/02/20 with BP right hand pain AMB ROOMING INTAKE FLOWSHEET DATA Pain Pain Level: 4 Pain Location: Hand-Right Description: Stabbing Duration Amount of Time: 5 Duration Units: Minutes Frequency: Intermittent Intervention/Comfort measure: Medication Patient states he is having pain when he grasp something at the base of his right thumb. 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 States his hand writing has gotten worse. Patient is right hand dominant. Tried Ibuprofen and Tylenol for the pain and does not help. X-rays done today. 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 Pain is a 5 out of 10 deep aching with any type of activity. Patient denies any pain while he is at rest. He reports that the pain feels weak. He also complains of atrophy. He is status post right carpal tunnel release with Dr. Queen in 2019. He states that he has taken some ibuprofen but nothing too consistent. He has not tried any type of bracing. He tells me that he is not interested in surgical options as he seems quite unhappy following his right carpal tunnel release. He is right-handed dominant. ASSESSMENT: M18.11 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 (primary encounter diagnosis) PLAN: The patient has a basal joint arthritis, we discussed getting him into a functional brace that he can wear during activity and also doing a corticosteroid injection. The patient agrees to plan. Andrew Peraza MD was advised as to contrast therapies and/or to take analgesics/anti-inflamma tories as needed and all contraindications were reviewed. 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 Gen:There were no vitals taken for this visit. nl development, non obese, no deformities ENT: Normocephalic, normal hearing, moist mucosa CV: Pulses:Radial= 2+ and symmetric, capillary refill < 2 secs, no peripheral edema/varicosities Skin: no rash, bruising or lesions. Good turgor. Psych: cooperative and appropriate, alert and oriented x 3, good mood and affect. Musculoskeletal: right thumb with mild swelling at the base. Mild tenderness to palpation at the dorsal capsule with very minimal crepitance. Painful grind test. Good motion at the MCP without hyperextension. Same with PIP and no locking or catching. Median, radial and ulnar nerves are intact. Non-tender first dorsal compartment with a negative Bianka's test. In addition to the comprehensive evaluation, assessment and plan outlined above, and as a distinct and separate element to the visit today, separate from a DME order of CMC brace , we have made the determination to proceed with an injection to aid in the management of the patient's condition. We discussed the risks, benefits, alternatives and expected outcomes of this injection in detail, and the patient agreed to proceed. The procedure was performed as detailed below. Small Joint Arthro/Inj 04/28/2024 12:11 PM Small Joint Arthro/Inj: R thumb CMC 04/28/2024 9:03 AM The procedure site was prepped in the usual sterile fashion. Medications: 3 mg betamethasone acetate-betamethasone sodium phosphate 6 mg/mL Anesthetics: 0.5 mL lidocaine (PF) 10 mg/mL (1 %) Outcome: tolerated well, no immediate complications Post-injection instructions were reviewed with the patient and the patient voiced understanding of these instructions. Informed Consent Consent Obtained: Verbal [place] Protocol A moment to CARE was completed. SIGN IN Sign in communication not applicable due to emergent procedure. Personnel directly involved with the procedure wore the appropriate PPE. Special Equipment: N/A Patient/Surrogate Stated/Verified: Patient name, Date of , Relevant allergies and Intended procedure TIME OUT Relevant labs, photos, and/or imaging studies have been reviewed. Consent documented and matches the intended procedure. Correct side/site marked and visible. Medications required for procedure verified. No fire risk assessment and interventions applicable. No implant(s) inserted. SIGN OUT No specimen alex (more content not included)... Normal [facility] Small Joint Arthro/Inj: R th umb CMCon 04-28-2024 Tran Young PA -C 04/30/2024 1:05 PM Small Joint Arthro/Inj: R thumb CMC 04/28/2024 12:11 PM The procedure site was prepped in the usual sterile fashion. Medications: 3 mg betamethasone acetate-betamethasone sodium phosphate 6 mg/mL Anesthetics: 0.5 mL lidocaine (PF) 10 mg/mL (1 %) Outcome: tolerated well, no immediate complications Post-injection instructions were reviewed with the patient and the patient voiced understanding of these instructions. Informed Consent Consent Obtained: Verbal [place] Protocol A moment to CARE was completed. SIGN IN Sign in communication not applicable due to emergent procedure. Personnel directly involved with the procedure wore the appropriate PPE. Special Equipment: N/A Patient/Surrogate Stated/Verified: Patient name, Date of , Relevant allergies and Intended procedure TIME OUT Relevant labs, photos, and/or imaging studies have been reviewed. Intended patient and procedure match the source document(s). Consent documented and matches the intended procedure. Correct side/site marked and visible. Medications required for procedure verified. No fire risk assessment and interventions applicable. No implant(s) inserted. SIGN OUT No specimen collected. No instruments, equipment or retained foreign bodies applicable. Post-procedure follow-up management communicated and Plan of Care Visit completed when applicable [facility] XR HAND 3V PA/LAT/OBL RTon 0 04-28-2024 XR HAND 3V PA/LAT/OBL RT * * *Final Report* * * DATE OF EXAM: Apr 28 2024 10:32AM [id number] - XR HAND 3V PA/LAT/OBL RT / PROCEDURE REASON: Right hand pain * * * * Physician Interpretation * * * * EXAMINATION / TECHNIQUE: XR HAND 3V PA/LAT/OBL RT HISTORY: PT STATES RIGHT HAND INJURY YEARS AGO HAVING RIGHT HAND PAIN AGAIN Right hand pain COMPARISON: 07/07/2019. RESULT: No acute fracture or dislocation is identified. Mild triscaphe, severe first CMC joint, moderate second MCP joint, and scattered interphalangeal joint osteoarthritis. No osseous erosion. IMPRESSION: Osteoarthritis as described. Gasfitter: PAUL Transcribe Date/Time: Apr 30 2024 8:21P Dictated by : YUNIER PAT MD This examination was interpreted and the report reviewed and electronically signed by: YUNIER PAT MD on Apr 30 2024 8:21PM EST [id number] Normal [facility] CBC W Auto Differential pane l (Bld)on 04-22-2024 Basophils (Bld) [#/Vol] 0.03 10*3/uL Normal <0.11 [facility] Comment on above: Order Comment: Speci men Type: BLOOD SPECIMENOrdering Facility: [facility] Address: [address] [place] [address] Performed By: #### 5 7021-8 ####[facility] LABCLIA [id number] [place] [address] [place] Basophils/100 WBC (Bld) 0.5 % Normal [facility] Comment on above: Order Comment: Speci men Type: BLOOD SPECIMENOrdering Facility: [facility] Address: [address] [place] [address] Performed By: #### 5 7021-8 ####[facility] LABCLIA [id number] [place] [address] [place] Differential cell count method Nom (Bld) Auto Normal [facility] Comment on above: Order Comment: Speci men Type: BLOOD SPECIMENOrdering Facility: [facility] Address: [address] [place] [address] Performed By: #### 5 7021-8 ####[facility] LABCLIA [id number] [place] [address] [place] Eosinophils (Bld) [#/Vol] 0.16 10*3/uL Normal <0.46 [facility] Comment on above: Order Comment: Speci men Type: BLOOD SPECIMENOrdering Facility: [facility] Address: [address] [place] [address] Performed By: #### 5 7021-8 ####[facility] LABIA [id number] [place] [address] [place] Eosinophils/100 WBC (Bld) 2.7 % Normal [facility] Comment on above: Order Comment: Speci men Type: BLOOD SPECIMENOrdering Facility: [facility] Address: [address] [place] [address] Performed By: #### 5 7021-8 ####[facility] LABIA [id number] [place] [address] [place] Erythrocyte distribution width (RBC) [Ratio] 12.5 % Normal 11.5-15.0 [facility] Comment on above: Order Comment: Speci men Type: BLOOD SPECIMENOrdering Facility: [facility] Address: [address] [place] [address] Performed By: #### 5 7021-8 ####[facility] LABCLIA [id number] [place] [address] [place] Hematocrit (Bld) [Volume fraction] 49.8 % Normal 39.0-51.0 [facility] Comment on above: Order Comment: Speci men Type: BLOOD SPECIMENOrdering Facility: [facility] Address: [address] [place] [address] Performed By: #### 5 7021-8 ####[facility] LABIA [id number] [place] [address] [place] Hemoglobin (Bld) [Mass/Vol] 16.1 g/dL Normal 13.0-17.0 [facility] Comment on above: Order Comment: Speci men Type: BLOOD SPECIMENOrdering Facility: [facility] Address: [address] [place] [address] Performed By: #### 5 7021-8 ####[facility] LABIA [id number] [place] [address] [place] Immature granulocytes (Bld) [#/Vol] 10*3/uL Normal <0.10 [facility] Comment on above: Order Comment: Speci men Type: BLOOD SPECIMENOrdering Facility: [facility] Address: [address] [place] [address] Performed By: #### 5 7021-8 ####[facility] LABIA [id number] [place] [address] [place] Immature granulocytes/100 WBC (Bld) 0.2 % Normal [facility] Comment on above: Order Comment: Speci men Type: BLOOD SPECIMENOrdering Facility: [facility] Address: [address] [place] [address] Performed By: #### 5 7021-8 ####[facility] LABIA [id number] [place] [address] [place] Lymphocytes (Bld) [#/Vol] 1.04 10*3/uL Normal 1.00-4.00 [facility] Comment on above: Order Comment: Speci men Type: BLOOD SPECIMENOrdering Facility: [facility] Address: [address] [place] [address] Performed By: #### 5 7021-8 ####[facility] LABIA [id number] [place] [address] [place] Lymphocytes/100 WBC (Bld) 17.4 % Normal [facility] Comment on above: Order Comment: Speci men Type: BLOOD SPECIMENOrdering Facility: [facility] Address: [address] [place] [address] Performed By: #### 5 7021-8 ####[facility] LABIA [id number] [place] [address] [place] MCH (RBC) [Entitic mass] 31.8 pg Normal 26.0-34.0 [facility] Comment on above: Order Comment: Speci men Type: BLOOD SPECIMENOrdering Facility: [facility] Address: [address] [place] [address] Performed By: #### 5 7021-8 ####[facility] LABIA [id number] [place] [address] [place] MCHC (RBC) [Mass/Vol] 32.3 g/dL Normal 30.5-36.0 [facility] Comment on above: Order Comment: Speci men Type: BLOOD SPECIMENOrdering Facility: [facility] Address: [address] [place] [address] Performed By: #### 5 7021-8 ####[facility] LABIA [id number] [place] [address] [place] MCV (RBC) [Entitic vol] 98.4 fL Normal 80.0-100.0 [facility] Comment on above: Order Comment: Speci men Type: BLOOD SPECIMENOrdering Facility: [facility] Address: [address] [place] [address] Performed By: #### 5 7021-8 ####[facility] LABIA [id number] [place] [address] [place] Monocytes (Bld) [#/Vol] 0.68 10*3/uL Normal <0.87 [facility] Comment on above: Order Comment: Speci men Type: BLOOD SPECIMENOrdering Facility: [facility] Address: [address] [place] [address] Performed By: #### 5 7021-8 ####[facility] LABCLIA [id number] [place] [address] [place] Monocytes/100 WBC (Bld) 11.4 % Normal [facility] Comment on above: Order Comment: Speci men Type: BLOOD SPECIMENOrdering Facility: [facility] Address: [address] [place] [address] Performed By: #### 5 7021-8 ####[facility] LABCLIA [id number] [place] [address] [place] Neutrophils (Bld) [#/Vol] 4.05 10*3/uL Normal 1.45-7.50 [facility] Comment on above: Order Comment: Speci men Type: BLOOD SPECIMENOrdering Facility: [facility] Address: [address] [place] [address] Performed By: #### 5 7021-8 ####[facility] LABCLIA [id number] [place] [address] [place] Neutrophils/100 WBC (Bld) 67.8 % Normal [facility] Comment on above: Order Comment: Speci men Type: BLOOD SPECIMENOrdering Facility: [facility] Address: [address] [place] [address] Performed By: #### 5 7021-8 ####[facility] LABCLIA [id number] [place] [address] [place] Nucleated RBC (Bld) [#/Vol] 10*3/uL Normal <0.01 [facility] Comment on above: Order Comment: Speci men Type: BLOOD SPECIMENOrdering Facility: [facility] Address: [address] [place] [address] Performed By: #### 5 7021-8 ####[facility] LABCLIA [id number] [place] [address] [place] Nucleated RBC/100 WBC (Bld) [Ratio] 0.0 /100 WBC Normal [facility] Comment on above: Order Comment: Speci men Type: BLOOD SPECIMENOrdering Facility: [facility] Address: [address] [place] [address] Performed By: #### 5 7021-8 ####[facility] LABIA [id number] [place] [address] [place] Platelet mean volume (Bld) [Entitic vol] 10.6 fL Normal 9.0-12.7 [facility] Comment on above: Order Comment: Speci men Type: BLOOD SPECIMENOrdering Facility: [facility] Address: [address] [place] [address] Performed By: #### 5 7021-8 ####[facility] LABIA [id number] [place] [address] [place] Platelets (Bld) [#/Vol] 215 10*3/uL Normal 150-400 [facility] Comment on above: Order Comment: Speci men Type: BLOOD SPECIMENOrdering Facility: [facility] Address: [address] [place] [address] Performed By: #### 5 7021-8 ####[facility] LABCLIA [id number] [place] [address] [place] RBC (Bld) [#/Vol] 5.06 10*6/uL Normal 4.20-6.00 [facility] Comment on above: Order Comment: Speci men Type: BLOOD SPECIMENOrdering Facility: [facility] Address: [address] [place] [address] Performed By: #### 5 7021-8 ####[facility] LABCLIA [id number] [place] [id number] [place] WBC (Bld) [#/Vol] 5.97 10*3/uL Normal 3.70-11.00 [facility] Comment on above: Order Comment: Speci men Type: BLOOD SPECIMENOrdering Facility: [facility] Address: [address] [place] [address] Performed By: #### 5 7021-8 ####[facility] LABCLIA [id number] [place] [id number] [place] CNOVon 04-22-2024 CNOV Office Visit (FAMPWS ) -------- ANDREW PERAZA MD ([id number]) 1940 M Date Time Provider Department 04/22/24 10:40 AM ROSS BLANDON FAMPWS During your visit today, we recorded the following information about you: Pulse Respiration Blood pressure Weight 68/minute 16/minute 128/74 74.8 kg Height 1.664 m Ross Blandon MD 04/22/2024 1:12 PM Signed error Ross Blandon MD 04/22/2024 1:12 PM Signed 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 Medicare Health Risk Assessment General Health Good Exercise: Minutes/Day 0 min Exercise: Days/Week 0 days Alcohol: Daily Use 4 or more times a week Alcohol: Drinks/Day 1 or 2 Alcohol: 6 or more drinks Never Feel off balance Yes Concerns: Teeth/Dentures No Concerns: Sexual function No Troubled by feelings Anxious Frequency: Eating healthy diet Nearly every day ADLs requiring help None of the above Safety precautions in home/vehicle Yes Smoke, vape, chews tobacco No Difficulty hearing No Difficulty seeing No Current Providers Specialists: I have reviewed specialist-related care of the patient in the medical record. Current care team: Patient Care Team: Ross Blandon MD as PCP - General (Family Medicine) Jennifer Kumar APRN.SANKET as Company Dancer (Family Medicine) Ally De PA-C as Company Dancer (Family Medicine) Sebas: Urology optho Medical/Family history review Reviewed and updated problem list, medical/surgical/family/ social history, medications, and allergies. Opioid use review Opioid Medications (last 90 days) No data to display Anxiety/Depression screening PHQ-2 Score: 0 (Lower risk for depression) Recommendation: no further intervention at this time Cognitive screening Mini Cog Score: 4 Cognitive screening reviewed and No further action needed (score 3-5). Functional Observation Was the patient's Timed Up AND Go test unsteady or >= 12 seconds? No Advance Care Planning Surrogate decision maker and/or advance care plan documented Measurements BP 128/74 Pulse 68 Resp 16 Ht 166.4 cm (5' 5.5) Wt 74.8 kg (165 lb) BMI 27.04 kg/m? 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 and Medicare Annual Visit. Patient with Hx of HTN, Hyperlipidemia, GERD, Prostate cancer, Insomnia, JOSE MIGUEL, colon adenoma, diverticulosis, Hx of BCC skin cancer and Melanoma of the skin, DDD lumbar with lumbar spinal stenosis as well as those reviewed and addressed below and in ROS. Patient sees Dr. Blevins last visit 04/2024 Patient sees Urology last visit 09/2023 Patient has been noticing issues with his balance. Feels unsteady when walking and trying to avoid falling. Has not had a fall. Past medical history, appointments, medications, allergies reviewed. Previous Medical History PAST MEDICAL HISTORY Diagnosis Date Advance directive discussed with patient 04/19/2022 Discussed 04/2022: up to date Aortic root dilatation (HCC) 04/18/2021 Arthritis of knee 08/02/2016 DDD (degenerative disc disease), cervical 04/18/2021 May need prn prednisone. DDD (degenerative disc disease), lumbar 03/15/2017 Diverticulosis of colon (without mention of hemorrhage) Diverticulosis of large intestine without hemorrhage 03/21/2018 Added automatically from request for surgery [id number] Elevated blood sugar 04/19/2022 Essential hypertension 01/22/2007 03/11/2019: Home BP Cuff Validated. 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 Normal [facility] Comprehensive metabolic 2000 panelon 04-22-2024 Albumin [Mass/Vol] 4.5 g/dL Normal 3.9-4.9 [facility] Comment on above: Order Comment: Speci men Type: BLOOD SPECIMENOrdering Facility: [facility] Address: [address] [place] [address] Performed By: #### 1 9123-9, LIPNF, 56928-5, 2132-9 ####[facility] LABCLIA [id number] [place] [address] [place] ALP [Catalytic activity/Vol] 64 U/L Normal 38-113 [facility] Comment on above: Order Comment: Speci men Type: BLOOD SPECIMENOrdering Facility: [facility] Address: [address] [place] [address] Performed By: #### 1 9123-9, LIPNF, , 2131-11 ####[facility] LABCLIA [id number] [place] [address] [place] ALT [Catalytic activity/Vol] 20 U/L Normal 10-54 [facility] Comment on above: Order Comment: Speci men Type: BLOOD SPECIMENOrdering Facility: [facility] Address: [address] [place] [address] Performed By: #### 1 9123-9, LIPNF, , 2131-11 ####[facility] LABCLIA [id number] [place] [address] [place] Anion gap [Moles/Vol] 12 mmol/L Normal 8-15 [facility] Comment on above: Order Comment: Speci men Type: BLOOD SPECIMENOrdering Facility: [facility] Address: [address] [place] [address] Performed By: #### 1 9123-9, LIPNF, , 2131-11 ####[facility] LABCLIA [id number] [place] [address] [place] AST [Catalytic activity/Vol] 20 U/L Normal 14-40 [facility] Comment on above: Order Comment: Speci men Type: BLOOD SPECIMENOrdering Facility: [facility] Address: [address] [place] [address] Performed By: #### 1 9123-9, LIPNF, , 2131-11 ####[facility] LABCLIA [id number] [place] [address] [place] Bilirubin [Mass/Vol] 0.6 mg/dL Normal 0.2-1.3 [facility] Comment on above: Order Comment: Speci men Type: BLOOD SPECIMENOrdering Facility: [facility] Address: [address] [id number] Performed By: #### 1 9123-9, LIPNF, , 2131-11 ####[facility] LABCLIA [id number] [address] [address] [place] Calcium [Mass/Vol] 9.8 mg/dL Normal 8.5-10.2 [facility] Comment on above: Order Comment: Speci men Type: BLOOD SPECIMENOrdering Facility: [facility] Address: [address] [place] [address] Performed By: #### 1 9123-9, LIPNF, , 2131-11 ####[facility] LABCLIA [id number] [place] [address] [place] Chloride [Moles/Vol] 102 mmol/L Normal 98-107 [facility] Comment on above: Order Comment: Speci men Type: BLOOD SPECIMENOrdering Facility: [facility] Address: [address] [place] [address] Performed By: #### 1 91239, LIPNF, , 2131-11 ####[facility] LABCLIA [id number] [place] [address] [place] CO2 [Moles/Vol] 26 mmol/L Normal 22-30 [facility] Comment on above: Order Comment: Speci men Type: BLOOD SPECIMENOrdering Facility: [facility] Address: [address] [id number] Performed By: #### 1 9123-9, LIPNF, , 2131-11 ####[facility] LABCLIA [id number] [place] [id number] [place] Creatinine [Mass/Vol] 0.92 mg/dL Normal 0.73-1.22 [facility] Comment on above: Order Comment: Speci men Type: BLOOD SPECIMENOrdering Facility: [facility] Address: [address] [place] [address] Performed By: #### 1 9123-9, LIPNF, , 2131-11 ####[facility] LABIA [id number] [place] [address] [place] Creatinine and Glomerular filtration rate.predicted panel (S/P/Bld) 83 mL/min/1.73m??? Normal >=60 [facility] Comment on above: Order Comment: Santos jin Type: BLOOD SPECIMENOrdering Facility: [facility] Address: [address] [place] [address] Result Comment: Maryann mated Glomerular Filtration Rate (eGFR) is calculated using the 2020 CKD-EPI creatinine equation. This equation utilizes serum creatinine, sex, and age as parameters. The creatinine assay has traceable calibration to isotope dilution-mass spectrometry. Refer to KDIGO guidelines for clinical interpretation. In patients with unstable renal function, e.g. those with acute kidney injury, the eGFR may not accurately reflect actual GFR. Performed By: #### 1 9123-9, LIPJACE, , 2131-11 ####[facility] LABIA [id number] [place] [address] [place] Glucose [Mass/Vol] 91 mg/dL Normal 74-99 [facility] Comment on above: Order Comment: Santos jin Type: BLOOD SPECIMENOrdering Facility: [facility] Address: [address] [place] [address] Result Comment: The [place] Diabetes Association (ADA) provides guidance for cutoff values for fasting glucose and random glucose. The ADA defines fasting as no caloric intake for at least 8 hours. Fasting plasma glucose results between 100 to 125 mg/dL indicate increased risk for diabetes (prediabetes). Fasting plasma glucose results greater than or equal to 126 mg/dL meet the criteria for diagnosis of diabetes. In the absence of unequivocal hyperglycemia, results should be confirmed by repeat testing. In a patient with classic symptoms of hyperglycemia or hyperglycemic crisis, random plasma glucose results greater than or equal to 200 mg/dL meet the criteria for diagnosis of diabetes. Reference: Standards of Medical Care in Diabetes 2016, [place] [employer] Association. Diabetes Care. 2016.39(Suppl 1). Performed By: #### 1 9123-9, LIPNF, 45503-8, 2131-11 ####[facility] LABCLIA [id number] [address] [address] [place] Potassium [Moles/Vol] 4.3 mmol/L Normal 3.7-5.1 [facility] Comment on above: Order Comment: Speci men Type: BLOOD SPECIMENOrdering Facility: [facility] Address: [address] [place] [address] Performed By: #### 1 9123-9, LIPNF, 91366-8, 2131-11 ####[facility] LABCLIA [id number] [place] [address] [place] Protein [Mass/Vol] 6.8 g/dL Normal 6.3-8.0 [facility] Comment on above: Order Comment: Speci men Type: BLOOD SPECIMENOrdering Facility: [facility] Address: [address] [place] [address] Performed By: #### 1 9123-9, LIPNF, , 2131-11 ####[facility] LABIA [id number] [place] [address] [place] Sodium [Moles/Vol] 140 mmol/L Normal 136-144 [facility] Comment on above: Order Comment: Speci men Type: BLOOD SPECIMENOrdering Facility: [facility] Address: [address] [place] [address] Performed By: #### 1 9123-9, LIPNF, , 2131-11 ####[facility] LABCLIA [id number] [place] [id number] [place] Urea nitrogen [Mass/Vol] 29 mg/dL High 9-24 [facility] Comment on above: Order Comment: Speci men Type: BLOOD SPECIMENOrdering Facility: [facility] Address: [address] [place] [address] Performed By: #### 1 9123-9, LIPNF, 48603-8, 2131-11 ####[facility] LABCLIA [id number] [address] [place] HbA1c (Bld)on 04-22-2024 Average glucose Estimated from glycated hemoglobin (Bld) [Mass/Vol] 111 mg/dL Normal [facility] Comment on above: Order Comment: Santos jin Type: BLOOD SPECIMENOrdering Facility: [facility] Address: [address] [place] [address] Result Comment: eAG: (Estimated average glucose) is a calculated value from HgbA1c and is corporate sales representative of the average blood glucose level in the last 2-3 month period. Performed By: #### 5 5454-3 ####[facility] LABIA [id number] [address] HbA1c (Bld) [Mass fraction] 5.5 % Normal 4.3-5.6 [facility] Comment on above: Order Comment: Santos jin Type: BLOOD SPECIMENOrdering Facility: [facility] Address: [address] [place] [address] Result Comment: [place] Diabetes Association guidelines indicate that patients with HgbA1c in the range 5.7-6.4% are at increased risk for development of diabetes, and intervention by lifestyle modification may be beneficial. HgbA1c greater or equal to 6.5% is considered diagnostic of diabetes. Performed By: #### 5 5454-3 ####[facility] LABIA [id number] [address] [place] LIPID PANEL, NONFASTINGon Cholesterol [Mass/Vol] 216 mg/dL High <200 [facility] Comment on above: Order Comment: Santos jin Type: BLOOD SPECIMENOrdering Facility: [facility] Address: [address] [place] [address] Result Comment: <200 mg/dL, Desirable 200-239 mg/dL, Borderline high >239 mg/dL, High Performed By: #### 1 9123-9, LIPNF, , 2131-11 ####[facility] LABCLIA [id number] [address] [place] HDL CHOLESTEROL, NF 44 mg/dL Normal >39 [facility] Comment on above: Order Comment: Santos jin Type: BLOOD SPECIMENOrdering Facility: [facility] Address: [address] [place] [address] Result Comment: 40-5 9 mg/dL, Acceptable >59 mg/dL, High: Negative risk factor for coronary heart disease <40 mg/dL, Low: Positive risk factor for coronary heart disease Performed By: #### 1 9123-9, LIPNF, , 2131-11 ####[facility] LABCLIA [id number] [address] STATES OF [facility] LDL CHOLESTEROL, NF 132 mg/dL High <100 [facility] Comment on above: Order Comment: Shantanumarixa jin Type: BLOOD SPECIMENOrdering Facility: [facility] Address: [address] [place] [address] Result Comment: <100 mg/dL, Optimal 100-129 mg/dL, Near optimal/above optimal 130-159 mg/dL, Borderline high 160-189 mg/dL, High >189 mg/dL, Very high Secondary prevention optimal LDL Cholesterol levels are recommended to be < 70 mg/dL Performed By: #### 1 9123-9, LIPNF, , 2131-11 ####[facility] LABCLIA [id number] [address] [place] LDL/HDL RATIO, NF 3.00 mg/dL High <2.54 [facility] Comment on above: Order Comment: Santos jin Type: BLOOD SPECIMENOrdering Facility: [facility] Address: [address] [place] [address] Result Comment: Refe rence: 1. National Cholesterol Education Program ATP III Guideline At-A-Glance Quick Desk Reference: National Heart, Lung, and Blood [place]. National Institutes of Health. 2001: NIH Publication No. 01-3305. 2. An International Atherosclerosis Society position paper: global recommendations for the management of dyslipidemia: executive summary, Atherosclerosis. 2014: 232(2):410-413. Performed By: #### 1 23-9, LIPJACE, , 2131-11 ####[facility] LABCLIA [id number] [place] [address] [place] NON HDL CHOL, NF 172 mg/dL High <130 [facility] Comment on above: Order Comment: Speci men Type: BLOOD SPECIMENOrdering Facility: [facility] Address: [address] [place] [address] Result Comment: <130 mg/dL, Optimal 130-159 mg/dL, Near optimal/above optimal 160-189 mg/dL, Borderline high 190-219 mg/dL, High >219 mg/dL, Very high Secondary prevention optimal non HDL Cholesterol levels are recommended to be <100 mg/dL Performed By: #### 1 9123-9, LIPNF, , 2131-11 ####[facility] LABCLIA [id number] [place] [address] [place] T CHOL/HDL RATIO NF 4.91 mg/dL Normal <5.10 [facility] Comment on above: Order Comment: Speci men Type: BLOOD SPECIMENOrdering Facility: [facility] Address: [address] [place] [address] Performed By: #### 1 9123-9, LIPNF, , 2131-11 ####[facility] LABCLIA [id number] [place] [address] [place] TRIGLYCERIDES, NF 202 mg/dL High <150 [facility] Comment on above: Order Comment: Speci men Type: BLOOD SPECIMENOrdering Facility: [facility] Address: [address] [place] [address] Result Comment: <150 mg/dL, Normal 150-199 mg/dL, Borderline high 200-499 mg/dL, High >499 mg/dL, Very high Performed By: #### 1 23-9, LIPNF, , 2131-11 ####[facility] LABCLIA [id number] [place] [address] [place] VLDL CHOLESTEROL, NF 40 mg/dL High <30 [facility] Comment on above: Order Comment: Speci men Type: BLOOD SPECIMENOrdering Facility: [facility] Address: [address] [place] [address] Performed By: #### 1 9123-9, LIPNF, , 2131-11 ####[facility] LABCLIA [id number] [place] [address] [place] Magnesium SerPl-mCncon 04-22 Magnesium [Mass/Vol] 2.1 mg/dL Normal 1.7-2.3 [facility] Comment on above: Order Comment: Speci men Type: BLOOD SPECIMENOrdering Facility: [facility] Address: [address] [place] [address] Performed By: #### 1 239, LIPNF, , 2131-11 ####[facility] LABCLIA [id number] [place] [address] [place] Urinalysis complete panel (U )on 04-22-2024 Bacteria LM.HPF (Urine sed) [#/Area] Negative Normal Negative [facility] Comment on above: Order Comment: Speci men Type: URINE SPECIMENOrdering Facility: [facility] Address: [address] [place] [address] Performed By: #### 2 4356-8 ####[facility] LABCLIA [id number] [place] [address] [place] Bilirubin Ql (U) Negative Normal Negative [facility] Comment on above: Order Comment: Speci men Type: URINE SPECIMENOrdering Facility: [facility] Address: [address] [place] [address] Performed By: #### 2 4356-8 ####[facility] LABCLIA [id number] [place] [address] [place] Clarity (Unsp spec) Clear Normal Clear [facility] Comment on above: Order Comment: Speci men Type: URINE SPECIMENOrdering Facility: [facility] Address: [address] [place] [address] Performed By: #### 2 4356-8 ####[facility] LABCLIA [id number] [place] [address] [place] Color (U) Yellow Normal Yellow [facility] Comment on above: Order Comment: Speci men Type: URINE SPECIMENOrdering Facility: [facility] Address: [address] [place] [address] Performed By: #### 2 4356-8 ####[facility] LABCLIA [id number] [place] [address] [place] Epithelial cells LM.HPF (Urine sed) [#/Area] None Seen Normal [facility] Comment on above: Order Comment: Speci men Type: URINE SPECIMENOrdering Facility: [facility] Address: [address] [place] [address] Performed By: #### 2 4356-8 ####[facility] LABCLIA [id number] [place] [address] [place] Glucose Test strip (U) [Mass/Vol] Negative Normal Negative [facility] Comment on above: Order Comment: Speci men Type: URINE SPECIMENOrdering Facility: [facility] Address: [address] [place] [address] Performed By: #### 2 4356-8 ####[facility] LABCLIA [id number] [place] [address] [place] Hemoglobin Ql (U) Negative Normal Negative [facility] Comment on above: Order Comment: Speci men Type: URINE SPECIMENOrdering Facility: [facility] Address: [address] [place] [address] Performed By: #### 2 4356-8 ####[facility] LABCLIA [id number] [place] [address] [place] Hyaline casts (Urine sed) [#/Area] 0 /[LPF] Normal 0 /LPF [facility] Comment on above: Order Comment: Speci men Type: URINE SPECIMENOrdering Facility: [facility] Address: [address] [place] [address] Performed By: #### 2 4356-8 ####[facility] LABCLIA [id number] [place] [address] [place] Ketones Ql (U) Trace Abnormal Negative [facility] Comment on above: Order Comment: Speci men Type: URINE SPECIMENOrdering Facility: [facility] Address: [address] [place] [address] Performed By: #### 2 4356-8 ####[facility] LABCLIA [id number] [place] [address] [place] Leukocyte esterase Test strip Ql (U) Negative Normal Negative [facility] Comment on above: Order Comment: Speci men Type: URINE SPECIMENOrdering Facility: [facility] Address: [address] [place] [address] Performed By: #### 2 4356-8 ####[facility] LABCLIA [id number] [place] [address] [place] Nitrite Ql (U) Negative Normal Negative [facility] Comment on above: Order Comment: Speci men Type: URINE SPECIMENOrdering Facility: [facility] Address: [address] [place] [address] Performed By: #### 2 4356-8 ####[facility] LABCLIA [id number] [place] [address] [place] pH (U) 6.0 [pH] Normal <8.5 [facility] Comment on above: Order Comment: Speci men Type: URINE SPECIMENOrdering Facility: [facility] Address: [address] [place] [address] Performed By: #### 2 4356-8 ####[facility] LABIA [id number] [place] [address] [place] Protein (U) [Mass/Vol] Trace Abnormal Negative [facility] Comment on above: Order Comment: Speci men Type: URINE SPECIMENOrdering Facility: [facility] Address: [address] [place] [address] Performed By: #### 2 4356-8 ####[facility] LABIA [id number] [place] [address] [place] RBC LM.HPF (Urine sed) [#/Area] 0-2 /HPF Normal 0-2 /HPF [facility] Comment on above: Order Comment: Speci men Type: URINE SPECIMENOrdering Facility: [facility] Address: [address] [place] [address] Performed By: #### 2 4356-8 ####[facility] LABIA [id number] [place] [address] [place] Specific gravity (U) [Rel density] 1.030 Normal 1.005-1.030 [facility] Comment on above: Order Comment: Speci men Type: URINE SPECIMENOrdering Facility: [facility] Address: [address] [place] [address] Performed By: #### 2 4356-8 ####[facility] LABIA [id number] [place] [address] [place] Urobilinogen Ql (U) 1.0 EU/dL Normal 0.2-1.0 EU/dL [facility] Comment on above: Order Comment: Speci men Type: URINE SPECIMENOrdering Facility: [facility] Address: [address] [place] [address] Performed By: #### 2 4356-8 ####[facility] LABIA [id number] [place] [address] [place] WBC LM.HPF (Urine sed) [#/Area] 0-5 /HPF Normal 0-5 /HPF [facility] Comment on above: Order Comment: Speci men Type: URINE SPECIMENOrdering Facility: [facility] Address: [address] [place] [address] Performed By: #### 2 4356-8 ####[facility] LABCLIA [id number] [place] [address] [place] Vit B12 SerPl-ncon 18-2 025 Cobalamin (Vitamin B12) [Mass/Vol] 778 pg/mL Normal 232-1245 [facility] Hospital Comment on above: Order Comment: Speci men Type: BLOOD SPECIMENOrdering Facility: [facility] Address: [address] [place] [address] Performed By: #### 1 [id number], LIPNF, 40871-1, 2132-9 ####[facility] LABCLIA [id number] [place] [address] [place] CNOVon 04-15-2024 CNOV Office Visit (PODIWS ) -------- ANDREW PERAZA MD ([id number]) 1940 M Date Time Provider Department 04/15/24 9:15 AM APOLINAR BLEVINS PODIWS During your visit today, we recorded the following information about you: Apolinar Blevins 04/15/2024 9:34 AM Signed Subjective: Patient presents to clinic c/o painful toenails. They state that the nails are especially painful with shoe gear and pressure. Patient states that nails 1-5 b/l are painful. No other pedal complaints at this time. Patient states no change in medications or medical history since last visit. Objective: Patient presents to clinic ambulating in dress shoes Vasc: DP and PT pulses are palpable bilateral. CFT is less than 5 seconds bilateral. Skin temperature is warm to cool proximal to distal bilateral. There is no edema or varicosities noted. Neuro: Protective sensation is intact to the foot and toes when tested with the 5.07 SWM bilateral. Vibratory sensation is decreased at the hallux IPJ bilateral. The hallux is downgoing bilateral. Derm: Nails 1-5 b/l are painful, discolored-yellow, thick, crumbly, dystrophic and with subungal debris. Skin is of normal turgor, texture and hair growth is present bilateral. There are no hyperkeratosis, ulcerations, scars, verruca or other lesions noted. Ortho: Muscle strength is 5/5 for all pedal groups tested. Ankle joint DF is decreased with the knee extended with no pain or crepitus noted. 1st MPJ ROM is decreased bilateral. Assessment: (B35.1) Onychomycosis (primary encounter diagnosis) (M79.674) Pain in toe of right foot (M79.675) Pain in toe of left foot Plan: Patient was seen and evaluated. Nails 1-5 bilateral were debrided in length and thickness. Patient is to RTC in 3-4 months. Apolinar Blevins DPM Allergies As of Date: 04/15/2024 Noted Allergy Reaction PENICILLIN G 06/03/2002 4 - Hives Comments: Urticaria Reaction details: hives occurred within hours after administration at age 25 Outcome of reaction: stopped agent Tolerated the following: Penicillin g ZOLOFT (SERTRALINE HCL) 12/11/2016 14 - Other: See Comments Comments: nightmares Date Reviewed: 04/15/2024 Reviewed by: Mary Rand LPN - Fully Assessed Reason for Visit: Established Patient [175] Follow Up [171] nail care [Other] Established Patient [175] Follow Up [171] nail care [Other] Primary Visit Diagnosis:Onychomycosis [B35.1] Other Visit Diagnoses:Pain in toe of right foot [M79.674] Pain in toe of left foot [M79.675] Prescriptions as of 04/15/2024 - omeprazole (PRILOSEC) 20 mg capsule Take 1 capsule by mouth once daily on an empty stomach. - metoprolol succinate ER (TOPROL XL) 50 mg 24 hr tablet Take 1 tablet by mouth once daily. - lisinopril (ZESTRIL) 20 mg tablet Take 1 tablet by mouth once daily. - cyanocobalamin (VITAMIN B-12) 100 mcg tab Take 100 mcg by mouth once daily. - aspirin, enteric coated (ASPIRIN, ENTERIC COATED) 81 mg EC tablet Take 81 mg by mouth once daily. Take one tablet daily - cyclobenzaprine (FLEXERIL) 10 mg tablet Take 1/2 to 1 tablet by mouth 3 times daily as needed for muscle pain or spasm. Problem List As Of Date 04/15/2024 Noted Resolved Impotence of organic origin [N52.9] 06/03/2002 Tear of lateral cartilage or meniscus of knee, *09/21/2003 08/29/2016 Follow-up examination, following other surgery *09/21/2003 08/29/2016 Esophageal reflux [K21.9] 02/24/2005 03/14/2017 Other and unspecified hyperlipidemia [E78.5] 03/09/2005 12/10/2014 Malignant neoplasm of prostate (HCC) [C61] 08/22/2005 Allergic rhinitis, cause unspecified [J30.9] 06/21/2006 03/14/2017 Contact dermatitis and other eczema due to plan*09/14/2006 03/14/2017 Contact dermatitis and other eczema, due to uns*09/14/2006 03/14/2017 Unspecified pruritic disorder [L29.9] 09/14/2006 03/14/2017 Seborrheic dermatitis, unspecified [L21.9] 09/14/2006 03/14/2017 Essential hypertension [I10] 01/22/2007 Neoplasm of Uncertain Behavior(NUB) of skin: po*12/19/2009 03/14/2017 Actinic Keratosis (Premalignant AK) [L57.0] 12/19/2009 03/14/2017 Actinic Damage///Sun-damaged skin [L57.8] 12/19/2009 12/19/2009 Irritated//Inflamed Seborrheic Keratosis [L82.0]12/19/2009 03/11/2015 Actinic Damage///Sun-damaged skin [L57.8] 12/19/2009 03/14/2017 Other and unspecified malignant neoplasm of sca*02/23/2010 03/14/2017 H/O BCC skin cancer: other malignant neoplasm *06/21/2010 Other seborrheic keratosis [L82.1] 06/21/2010 03/11/2015 Solar lentigo [L81.4] 06/21/2010 07/28/2015 Personal history of malignant melanoma of skin *06/21/2010 IBS (irritable bowel syndrome) [K58.9] 02/05/2014 03/20/2018 Irritable bowel syndrome [K58.9] 05/14/2014 05/14/2014 Mixed hyperlipidemia [E78.2] 12/04/2014 Insomnia [G47.00] 12/04/2014 Hip bursitis [M70.70] 04/19/2016 08/29/2016 Primary osteoarthritis of right knee [M17.11] 09/06/2016more content not included)... Normal [facility] CNOVon 01-14-2024 CNOV Office Visit (PODIWS ) -------- ANDREW PERAZA MD ([id number]) 1940 M Date Time Provider Department 01/14/24 9:15 AM APOLINAR BLEVINS PODIWS During your visit today, we recorded the following information about you: aMry Rand LPN 01/14/2024 9:51 AM Signed AMB ROOMING INTAKE FLOWSHEET DATA Patient presents with: Left Foot - Established Patient, Follow Up, nail care Right Foot - Established Patient, Follow Up, nail care LILIBETH Barrios Matthew 01/14/2024 9:51 AM Signed Subjective: Patient presents to clinic c/o painful toenails. They state that the nails are especially painful with shoe gear and pressure. Patient states that nails 1-5 b/l are painful. No other pedal complaints at this time. Patient states no change in medications or medical history since last visit. Objective: Patient presents to clinic ambulating in [facility] Vasc: DP and PT pulses are palpable bilateral. CFT is less than 5 seconds bilateral. Skin temperature is warm to cool proximal to distal bilateral. There is no edema or varicosities noted. Neuro: Protective sensation is intact to the foot and toes when tested with the 5.07 SWM bilateral. Vibratory sensation is intact at the hallux IPJ bilateral. The hallux is downgoing bilateral. Derm: Nails 1-5 b/l are painful, discolored-yellow, thick, crumbly, dystrophic and with subungal debris. Skin is of normal turgor, texture and hair growth is present bilateral. There are no hyperkeratosis, ulcerations, scars, verruca or other lesions noted. Assessment: (B35.1) Onychomycosis (primary encounter diagnosis) (M79.674) Pain in toe of right foot (M79.675) Pain in toe of left foot Plan: Patient was seen and evaluated. Nails 1-5 bilateral were debrided in length and thickness. Patient is to RTC in 3-4 months. Apolinar Blevins DPM Referring Provider: APOLINAR BLEVINS [[id number]] Allergies As of Date: 01/14/2024 Noted Allergy Reaction PENICILLIN G 06/03/2002 4 - Hives Comments: Urticaria Reaction details: hives occurred within hours after administration at age 25 Outcome of reaction: stopped agent Tolerated the following: Penicillin g ZOLOFT (SERTRALINE HCL) 12/11/2016 14 - Other: See Comments Comments: nightmares Date Reviewed: 01/14/2024 Reviewed by: Mary Rand LPN - Fully Assessed Reason for Visit: Established Patient [175] Follow Up [171] nail care [Other] Established Patient [175] Follow Up [171] nail care [Other] Primary Visit Diagnosis:Onychomycosis [B35.1] Other Visit Diagnoses:Pain in toe of right foot [M79.674] Pain in toe of left foot [M79.675] Prescriptions as of 01/14/2024 - omeprazole (PRILOSEC) 20 mg capsule Take 1 capsule by mouth once daily on an empty stomach. - metoprolol succinate ER (TOPROL XL) 50 mg 24 hr tablet Take 1 tablet by mouth once daily. - lisinopril (ZESTRIL) 20 mg tablet Take 1 tablet by mouth once daily. - cyanocobalamin (VITAMIN B-12) 100 mcg tab Take 100 mcg by mouth once daily. - aspirin, enteric coated (ASPIRIN, ENTERIC COATED) 81 mg EC tablet Take 81 mg by mouth once daily. Take one tablet daily - cyclobenzaprine (FLEXERIL) 10 mg tablet Take 1/2 to 1 tablet by mouth 3 times daily as needed for muscle pain or spasm. Problem List As Of Date 01/14/2024 Noted Resolved Impotence of organic origin [N52.9] 06/03/2002 Tear of lateral cartilage or meniscus of knee, *09/21/2003 08/29/2016 Follow-up examination, following other surgery *09/21/2003 08/29/2016 Esophageal reflux [K21.9] 02/24/2005 03/14/2017 Other and unspecified hyperlipidemia [E78.5] 03/09/2005 12/10/2014 Malignant neoplasm of prostate (HCC) [C61] 08/22/2005 Allergic rhinitis, cause unspecified [J30.9] 06/21/2006 03/14/2017 Contact dermatitis and other eczema due to plan*09/14/2006 03/14/2017 Contact dermatitis and other eczema, due to uns*09/14/2006 03/14/2017 Unspecified pruritic disorder [L29.9] 09/14/2006 03/14/2017 Seborrheic dermatitis, unspecified [L21.9] 09/14/2006 03/14/2017 Essential hypertension [I10] 01/22/2007 Neoplasm of Uncertain Behavior(NUB) of skin: po*12/19/2009 03/14/2017 Actinic Keratosis (Premalignant AK) [L57.0] 12/19/2009 03/14/2017 Actinic Damage///Sun-damaged skin [L57.8] 12/19/2009 12/19/2009 Irritated//Inflamed Seborrheic Keratosis [L82.0]12/19/2009 03/11/2015 Actinic Damage///Sun-damaged skin [L57.8] 12/19/2009 03/14/2017 Other and unspecified malignant neoplasm of sca*02/23/2010 03/14/2017 H/O BCC skin cancer: other malignant neoplasm *06/21/2010 Other seborrheic keratosis [L82.1] 06/21/2010 03/11/2015 Solar lentigo [L81.4] 06/21/2010 07/28/2015 Personal history of malignant melanoma of skin *06/21/2010 IBS (irritable bowel syndrome) [K58.9] 02/05/2014 03/20/2018 Irritable bowel syndrome [K58.9] 05/14/2014 05/14/2014 Mixed hyperlipidemia [E78.2] 12/04/2014 Insomnia [G47.00] 12/04/2014 Hip bur (more content not included)... Normal [facility] UA DIP, URINE (POC)on 2023 BILIRUBIN UA (POCT) Negative Negative [facility] CLARITY UA (POCT) Slightly Cloudy Cl [facility] COLOR UA (POCT) Dark yellow [facility] GLUCOSE UA (POCT) Negative Negative mg/dL [facility] Hemoglobin Ql (U) Negative Negative [facility] KETONE UA (POCT) Negative Negative mg/dL [facility] LEUKOCYTES UA (POCT) Negative Negative [facility] NITRITE UA (POCT) Negative Negative [facility] PH UA (POCT) 7.5 4.5 - 8.0 [facility] Protein Ql (U) Negative Negative mg/dL [facility] SPECIFIC GRAVITY UA (POCT) 1.020 1.005 - 1.030 [facility] UROBILINOGEN UA (POCT) 0.2 Normal E.U./dL [facility] Location:[facility], [address], [place], [place], [id number] [place] [address] POINT OF CARE [facility] PROGRESSon 11-04-2019 PROGRESS HNO ID: [id number] Author: Anna Mann Service: ? Author Type: Occupational Therapist Type: Progress Notes Filed: 11/04/2019 8:40 AM Note Text: 11/04/2019 REHABILITATION AND SPORTS THERAPY OCCUPATIONAL THERAPY DISCONTINUANCE OF CARE Plan of Care Period: Start of Care Date: 05/27/19 Last Visit Date: 06/24/2019 Therapy Program: The following is a summary of the interventions provided for this episode of care; Therapeutic exercise and Self-fci management Assessment: Based on most recent visit, patient was progressing as expected toward functional goals based on documented subjective information on progress and documented objective information regarding strength, range of motion and overall function. Unable to formally assess goal achievement due to non-compliance with therapy plan of care. Reason for Discontinuation of Care: Patient has not returned to therapy or scheduled additional follow-up appointments. Anna Mann, OT/LCHT [facility] Re-Evalution OT 10-29-2019 Re-Evalution OT [facility] Occupational Therapy [facility] [address] [place] [address] / REEVALUATION / MEDICARE RECERTIFICATION OCCUPATIONAL THERAPY MR#: [id number] Acct: [id number] Name: ANDREW PERAZA DR Rep #: [id number] : 1940 79 From: Maria E Caal OTR/Margaret, T Referring : Status: REG RCR Insurance: MEDICARE PART A B Eval Date: [facility] TRAN YOUNG, It has been my pleasure to treat ANDREW PERAZA over the last 8 visits for right IF closed dislocation of metacarpophalangeal joint. Please see the progress note below for an update on the occupational therapy plan of care! Subjective: pt arrives states he is feeling ok- no pian at this time but continues to struggle with composite fist/ PIP deviation - pt states a lot of times he doesn't notice the lack of ROM. But would like to know why deviation is occuring Objective/Function: right IF MCP ROM 0/70. right IF PIP 0/100. right IF DIP 0/50. IF deviates at PIP about 30*. therapist domenica oval 8 to provide support for pinch tasks -. right grinder set up operator jig strength 30#. right lateral pinch 8#. right tripod pinch 8#. pt made improvements with ROM. Kyleigh has ed. pt on HEP for strength and ROM and in session we used US to increase soft tissue elasticity to wendy ROM - Plan Plan: pt to return to for further evaluation Goals - Goals Patient Goals: Regain Mobility, Use Hand/Wrist/Arm Normally Again Goal:: pt will demo a increase in right grinder set up operator jig strength by 10# or greater to return pt to PLOF by d/c Goal:: pt will demo a increase in right MCP flex to 75* and PIP flex by 25* or greater and a decrease in right IF middel phalanges ulnar dev by 10* or more to increase pts ability to form composite fist for functional grasp by d/c Goal:: pt will report pain no greater than 1/10 with use of right hand for ADLs and IADLS Goal:: pt will demo understanding of scar mtg by end of 2 session to decrease scar adhesions. Anticipated Interventions Anticipated Interventions: A/AAROM/PROM, Strengthening, Scar Care, Modalities, Orthoses, Joint Protection/Energy Conservation Please do not hesitate to contact me at [phone] by phone or if you have questions or concerns regarding this new plan of care! Sincerely, LINK Pardo, IVETH 10/29/19 1103 CC: Dr. Ronal Masterson III, MD; TRAN YOUNG ANDRE Signed For Medicare only, by signing this I certify the plan of care. ____ Physicians Signature Date Normal [facility] OT General Evaluationon 09-04 OT General Evaluation [facility] Occupational Therapy [address] [place] [address] / REHABILITATION SERVICES INITIAL EVALUATION MR#: [id number] Acct: [id number] Name: ANDREW PERAZA DR Rep #: [id number] : 1940 78 From: Maria E MAN/Margaret, IVETH Referring : Status: REG RCR Insurance: MEDICARE PART A B Eval Date: [facility] Patient's Visit Information ANDREW PERAZA is a 78 year old M, referred to Occupational Therapy by RTAN YOUNG, with a diagnosis of right IF closed dislocation of metacarpophalangeal joint. Date of Evaluation: 10/03/19 Occupational Therapist: Maria E Caal, OTR/Margaret, CHT - Subjective This 78 year old male was seen for OT eval with dx. of closed dislocation of metacarpophalangeal joint of finger with sx for repair 4 months ago for right IF MCP. pt has limited ROM of IF and difficulty forming a composite fist. pt states he would like to return to his PLOF. recent right CTR - Pain right IF 4 Pain Intensity Range: 0, 4 - ROM MP: right IF 0/70 left 0/75 PIP: right IF 0/70 pt demo with 30* ulnar deviation with PIP flexion left 0/100 DIP: right IF 0/45 ROM Comments: pt demo a deviation of PIP - Strength Coating Technician: right 35# left 50# Lateral Pinch: right 8# left 12# Tripod Pinch: right 8# left 10# Strength Comments: pt with recent CTR. noted muscle weakness in thumb adduction and IF abduction - Sensation Sensation Comments: states better since CTR but declined testing as not associated with this injury - Quick DASH-Disab of Arm,Shoulder Hand Quick DASH Score: 29.5450 - Goals Goal:: pt will demo a increase in right grinder set up operator jig strength by 10# or greater to return pt to PLOF by d/c Goal:: pt will demo a increase in right MCP flex to 75* and PIP flex by 25* or greater and a decrease in right IF middel phalanges ulnar dev by 10* or more to increase pts ability to form composite fist for functional grasp by d/c Goal:: pt will report pain no greater than 1/10 with use of right hand for ADLs and IADLS Goal:: pt will demo understanding of scar mtg by end of 2 session to decrease scar adhesions. - Rehabilitation General Assessment: Pt 4 months s/p open reduction of right IF MCP joint. pt demo with limited MCP and PIP ROM with ulnar deviation at PIP- this is limiting pts ind.with grasp and use of right hand for ADLs and IADLS. Pt would benefit from skilled OT services 1-2x week for 4 weeks to increase pts ind with ADls and IADLS. Today therapist completed scar mtg and PROM along with ed. pt on performing scar mtg 2-3x a day and PROM 3-4 x a day. pt demo understanding therapist will initiate PRE as able. pt demo understanding and agree to POC. Rehabilitation Potential: Good - Anticipated Interventions A/AAROM/PROM, Strengthening, Scar Care, Modalities, Orthoses, Joint Protection/Energy Conservation - Visit Plan Frequency: 2x /Week Duration: 4 Weeks TEXT: Thank you for the opportunity to evaluate your patient. For Medicare and Medicare HMO plans, please review the plan of care and approve it. It will need to be FAXED BACK to us at [phone] for Medicare purposes. Please let me know if there are questions or concerns regarding this plan of care. Physician Signature: Date: ____ 10/03/19 1229 CC: Dr. Ronal Masterson III, MD; TRAN YOUNG ANDRE Signed For Medicare only, by signing this I certify the plan of care. ____ Physicians Signature Date [facility] CNCOon 06-24-2019 CNCO Letter Text [facility] CNTHERAPYon 06-24-2019 CNTHERAPY OT/PT/Speech Visit ([facility]) -------- ANDREW PERAZA MD ([id number]) 1940 M Date Time Provider Department 06/24/19 11:00 AM ANNA MANN (OT) [facility] Date Time Provider Department Center 06/24/2019 11:00 AM [id number]-XORPXOANNA MANN [facility] Reason for Visit: Occupational Therapy [504] OT Discharge [750] Reason For Visit History Recorded Primary Visit Diagnosis:Closed dislocation of MCP joint of hand, initial encounter [S63.269A] Allergies As of Date: 06/24/2019 Noted Allergy Reaction PENICILLIN G 06/03/2002 4 - Hives Comments: Urticaria Reaction details: hives occurred within hours after administration at age 25 Outcome of reaction: stopped agent Tolerated the following: Penicillin g ZOLOFT (SERTRALINE HCL) 12/11/2016 14 - Other: See Comments Comments: nightmares Date Reviewed: 05/27/2019 Reviewed by: Tran Young (Pa) - Fully Assessed Prescriptions as of 06/24/2019 Sig: HYDROCHLOROTHIAZIDE 12.5 MG C* Take 1 capsule by mouth once * X METOPROLOL SUCCINATE ER 100 M* Take 0.5 tablets by mouth onc* OMEPRAZOLE 20 MG CAPSULE,ANDRAE* Take 1 capsule by mouth once * LISINOPRIL 20 MG TABLET Take 1 tablet by mouth once d* ATORVASTATIN 10 MG TABLET Take 0.5 tablets by mouth onc* X CLINDAMYCIN HCL 300 MG CAPSULE Take 2 capsules by mouth as d* X ZOLPIDEM 5 MG TABLET Take 1 tablet by mouth at bed* Progress Notes: Anna Mann OT/L 06/24/2019 2:08 PM Signed Episode Visit Count: 3 Therapist That Will Oversee The Plan Of Care: Pilo Castillo Start of Care Date: 05/27/19 Onset Date: 05/18/19 Plan of Care Certification Date: 05/27/19 Patient Identified by Name and Date of : Yes REHABILITATION AND SPORTS THERAPY OCCUPATIONAL THERAPY TREATMENT NOTE ASSESSMENT: Andrew Peraza MD demonstrated difficulty with AROM and strength slight scossoring noted in index. The patient will continue to benefit from continued skilled occupational therapy for exercises education PLAN FOR NEXT VISIT: progress report upgrade HEP SUBJECTIVE: S/P MCP dislocation Pt concerned about scissoring Pain: Pain Pain Level: 0 OBJECTIVE MEASURES WITH LEVEL OF FUNCTION: Hand Right Hand AROM: Index Finger Strength: Coating Technician Position 2;Pinch Meter Hand Strength R Coating Technician Position 2 (lbs): 18 lbs L Coating Technician Position 2 (lbs): 40 lbs R Lateral Pinch (lbs): 8 lbs R Tripod/ 3 Jaw Ruy (lbs): 7 lbs R Tip Pinch (lbs): 5 lbs L Lateral Pinch (lbs): 13 lbs L Tripod/ 3 Jaw Ruy (lbs): 11 lbs L Tip Pinch (lbs): 9 lbs Hand AROM R Index Finger MP Extension: -12 Degrees R Index Finger MP Flexion: 70 Degrees R Index Finger PIP Extension : 0 Degrees R Index Finger PIP Flexion: 74 Degrees R Index Finger DIP Extension : 0 Degrees R Index Finger DIP Flexion: 49 Degrees Right Index Finger Total Active Movement: 181 TREATMENT: Therapeutic Exercise: 1: MD consulted with PT in OT 2: tendon gliding and blocking 3: with soft sponge grinder set up operator jig and digit flexion 4: with soft putty grinder set up operator jig digit extension roll digit flexion and ext abduction into [id number] putty 5: adduction with soft putty and sponge 6: digit abduction ext all digits thin band 7: index finger abduction with thin rubber band 8: instructed to perform scar mobilization more frequently 9: issued dycem and instructed in its use for scar mobilization 10: issued silicone instructed in wear schedule and precautions Skilled Intervention: Patient was educated in proper exercise technique and purpose for exercises. Reviewed and educated patient on additions Billing: Kee: Therapeutic Exercise (06496): 1:1 time:45 minutes (3 units: 38-52 mins) Total time / Length of visit: 45 minutes Anna Mann OT/EDER Santos 11/04/2019 8:40 AM Signed 11/04/2019 REHABILITATION AND SPORTS THERAPY OCCUPATIONAL THERAPY DISCONTINUANCE OF CARE Plan of Care Period: Start of Care Date: 05/27/19 Last Visit Date: 06/24/2019 Therapy Program: The following is a summary of the interventions provided for this episode of care; Therapeutic exercise and Self-fci management Assessment: Based on most recent visit, patient was progressing as expected toward functional goals based on documented subjective information on progress and documented objective information regarding strength, range of motion and overall function. Unable to formally assess goal achievement due to non-compliance with therapy plan of care. Reason for Discontinuation of Care: Patient has not returned to therapy or scheduled additional follow-up appointments. GENEVIEVE Schaffer -------- Annotated image of OT HAND THERAPUTTY EXERCISES PG 1 last updated by Anna Mann on 06/24/2019 11:34 AM Annotated image of OT HAND THERAPUTTY EXERCISES PG 2 last updated by Anna Mann on 06/24/2019 11:34 AM Annotated image of OT HAND FINGER PUTTY KICKS AND DRAGS last updated by Anna Mann on 06/24/2019 11:34 AM [facility] PROGRESSon 06-24-2019 PROGRESS HNO ID: [id number] Author: Anna Mann Service: ? Author Type: Occupational Therapist Type: Progress Notes Filed: 06/24/2019 2:08 PM Note Text: Episode Visit Count: 3 Therapist That Will Oversee The Plan Of Care: Pilo Castillo Start of Care Date: 05/27/19 Onset Date: 05/18/19 Plan of Care Certification Date: 05/27/19 Patient Identified by Name and Date of : Yes REHABILITATION AND SPORTS THERAPY OCCUPATIONAL THERAPY TREATMENT NOTE ASSESSMENT: Andrew Peraza MD demonstrated difficulty with AROM and strength slight scossoring noted in index. The patient will continue to benefit from continued skilled occupational therapy for exercises education PLAN FOR NEXT VISIT: progress report upgrade HEP SUBJECTIVE: S/P MCP dislocation Pt concerned about scissoring Pain: Pain Pain Level: 0 OBJECTIVE MEASURES WITH LEVEL OF FUNCTION: Hand Right Hand AROM: Index Finger Strength: Coating Technician Position 2;Pinch Meter Hand Strength R Coating Technician Position 2 (lbs): 18 lbs L Coating Technician Position 2 (lbs): 40 lbs R Lateral Pinch (lbs): 8 lbs R Tripod/ 3 Jaw Ruy (lbs): 7 lbs R Tip Pinch (lbs): 5 lbs L Lateral Pinch (lbs): 13 lbs L Tripod/ 3 Jaw Ruy (lbs): 11 lbs L Tip Pinch (lbs): 9 lbs Hand AROM R Index Finger MP Extension: -12 Degrees R Index Finger MP Flexion: 70 Degrees R Index Finger PIP Extension : 0 Degrees R Index Finger PIP Flexion: 74 Degrees R Index Finger DIP Extension : 0 Degrees R Index Finger DIP Flexion: 49 Degrees Right Index Finger Total Active Movement: 181 TREATMENT: Therapeutic Exercise: 1: MD consulted with PT in OT 2: tendon gliding and blocking 3: with soft sponge grinder set up operator jig and digit flexion 4: with soft putty grinder set up operator jig digit extension roll digit flexion and ext abduction into [id number] putty 5: adduction with soft putty and sponge 6: digit abduction ext all digits thin band 7: index finger abduction with thin rubber band 8: instructed to perform scar mobilization more frequently 9: issued dycem and instructed in its use for scar mobilization 10: issued silicone instructed in wear schedule and precautions Skilled Intervention: Patient was educated in proper exercise technique and purpose for exercises. Reviewed and educated patient on additions Billing: [place]: Therapeutic Exercise ([id number]): 1:1 time:45 minutes (3 units: 38-52 mins) Total time / Length of visit: 45 minutes [facility] CNTHERAPY OT/PT/Speech Visit ([facility]) -------- ANDREW PERAZA MD ([id number]) 1940 M Date Time Provider Department 06/10/19 11:00 AM ANNA MANN (OT) [facility] Date Time Provider Department Center 06/10/2019 11:00 AM [id number] Visit: [facility]ational Therapy [504] Primary Visit Diagnosis:Closed dislocation of MCP joint of hand, initial encounter [S63.269A] Allergies As of Date: 06/10/2019 Noted Allergy Reaction PENICILLIN G 06/03/2002 4 - Hives Comments: Urticaria Reaction details: hives occurred within hours after administration at age 25 Outcome of reaction: stopped agent Tolerated the following: Penicillin g ZOLOFT (SERTRALINE HCL) 12/11/2016 14 - Other: See Comments Comments: nightmares Date Reviewed: 05/27/2019 Reviewed by: Tran Young (Pa) - Fully Assessed Prescriptions as of 06/10/2019 Sig: HYDROCHLOROTHIAZIDE 12.5 MG C* Take 1 capsule by mouth once * METOPROLOL SUCCINATE ER 100 M* Take 0.5 tablets by mouth onc* OMEPRAZOLE 20 MG CAPSULE,ANDRAE* Take 1 capsule by mouth once * LISINOPRIL 20 MG TABLET Take 1 tablet by mouth once d* ATORVASTATIN 10 MG TABLET Take 0.5 tablets by mouth onc* CLINDAMYCIN HCL 300 MG CAPSULE Take 2 capsules by mouth as d* ZOLPIDEM 5 MG TABLET Take 1 tablet by mouth at bed* Progress Notes: Anna Mann OT/Margaret 06/10/2019 11:43 AM Signed Episode Visit Count: 2 Therapist That Will Oversee The Plan Of Care: Pilo Castillo Start of Care Date: 05/27/19 Onset Date: 05/18/19 Plan of Care Certification Date: 05/27/19 Patient Identified by Name and Date of : Yes REHABILITATION AND SPORTS THERAPY OCCUPATIONAL THERAPY TREATMENT NOTE ASSESSMENT: Andrew Peraza MD demonstrated difficulty with AROM slight scissoring noted in index finger Pt with improved edema . The patient will continue to benefit from continued skilled occupational therapy for education splinting and exercises PLAN FOR NEXT VISIT: assess progress as able SUBJECTIVE: S/P MCP dislocation Pt reports he has only been wearing splint at night Pain: Pain Pain Level: 0 Pain Location: Hand - Right OBJECTIVE MEASURES WITH LEVEL OF FUNCTION: Hand R DPC (cm): 22 Right Hand AROM: Index Finger Hand AROM R Index Finger MP Extension: -12 Degrees R Index Finger MP Flexion: 60 Degrees R Index Finger PIP Extension : 0 Degrees R Index Finger PIP Flexion: 60 Degrees R Index Finger DIP Extension : 0 Degrees R Index Finger DIP Flexion: 45 Degrees TREATMENT: Therapeutic Exercise: 1: tendon gliding while rosie taped 2: Blocking each digit except index 3: PROM all digit except index 4: adjust splint for increased comfort 5: instructed pt that he must either have splint or rosie tapes on hand 6: educated on healing process and activity restrictions Skilled Intervention: Patient was educated in proper exercise technique and purpose for exercises. Skilled judgment was provided in selection of appropriate interventions. Billing: [place]: Therapeutic Exercise ([id number]): 1:1 time:45 minutes (3 units: 38-52 mins) Total time: 45 minutes Anna Mann OT/NALLELY -------- [facility] PROGRESSon 06-10-2019 PROGRESS HNO ID: [id number] Author: Anna Mann Service: ? Author Type: Occupational Therapist Type: Progress Notes Filed: 06/10/2019 11:43 AM Note Text: Episode Visit Count: 2 Therapist That Will Oversee The Plan Of Care: Pilo Castillo Start of Care Date: 05/27/19 Onset Date: 05/18/19 Plan of Care Certification Date: 05/27/19 Patient Identified by Name and Date of : Yes REHABILITATION AND SPORTS THERAPY OCCUPATIONAL THERAPY TREATMENT NOTE ASSESSMENT: Andrew Peraza MD demonstrated difficulty with AROM slight scissoring noted in index finger Pt with improved edema . The patient will continue to benefit from continued skilled occupational therapy for education splinting and exercises PLAN FOR NEXT VISIT: assess progress as able SUBJECTIVE: S/P MCP dislocation Pt reports he has only been wearing splint at night Pain: Pain Pain Level: 0 Pain Location: Hand - Right OBJECTIVE MEASURES WITH LEVEL OF FUNCTION: Hand R DPC (cm): 22 Right Hand AROM: Index Finger Hand AROM R Index Finger MP Extension: -12 Degrees R Index Finger MP Flexion: 60 Degrees R Index Finger PIP Extension : 0 Degrees R Index Finger PIP Flexion: 60 Degrees R Index Finger DIP Extension : 0 Degrees R Index Finger DIP Flexion: 45 Degrees TREATMENT: Therapeutic Exercise: 1: tendon gliding while rosie taped 2: Blocking each digit except index 3: PROM all digit except index 4: adjust splint for increased comfort 5: instructed pt that he must either have splint or rosie tapes on hand 6: educated on healing process and activity restrictions Skilled Intervention: Patient was educated in proper exercise technique and purpose for exercises. Skilled judgment was provided in selection of appropriate interventions. Billing: [place]: Therapeutic Exercise ([id number]): 1:1 time:45 minutes (3 units: 38-52 mins) Total time: 45 minutes [facility] 05-27-2019 CNTHERAPY OT/PT/Speech Visit (OTC) -------- ANDREW PERAZA MD ([id number]) 1940 M Date Time Provider Department 05/27/19 8:45 AM [facility] Date Time Provider Department Center 05/27/2019 8:45 AM [id number][facility]CBYN[facility]ANNA [facility] Visit: OT EVAL [748] Visit Diagnosis:Closed dislocation of MCP joint of hand, initial encounter [S63.269A] Allergies As of Date: 05/27/2019 Noted Allergy Reaction PENICILLIN G 06/03/2002 4 - Hives Comments: Urticaria Reaction details: hives occurred within hours after administration at age 25 Outcome of reaction: stopped agent Tolerated the following: Penicillin g ZOLOFT (SERTRALINE HCL) 12/11/2016 14 - Other: See Comments Comments: nightmares Date Reviewed: 05/27/2019 Reviewed by: Tran Young (Pa) - Fully Assessed Prescriptions as of 05/27/2019 Sig: TRAMADOL 50 MG TABLET Take 1 tablet by mouth every * HYDROCHLOROTHIAZIDE 12.5 MG C* Take 1 capsule by mouth once * METOPROLOL SUCCINATE ER 100 M* Take 0.5 tablets by mouth onc* OMEPRAZOLE 20 MG CAPSULE,ANDRAE* Take 1 capsule by mouth once * LISINOPRIL 20 MG TABLET Take 1 tablet by mouth once d* ATORVASTATIN 10 MG TABLET Take 0.5 tablets by mouth onc* CLINDAMYCIN HCL 300 MG CAPSULE Take 2 capsules by mouth as d* ZOLPIDEM 5 MG TABLET Take 1 tablet by mouth at bed* Progress Notes: Anna Mann OT/L 05/27/2019 10:55 AM Signed Episode Visit Count: 1 Therapist That Will Oversee The Plan Of Care: Pilo Castillo Start of Care Date: 05/27/19 Onset Date: 05/18/19 Plan of Care Certification Date: 05/27/19 Patient Identified by Name and Date of : Yes [facility] REHABILITATION AND SPORTS THERAPY OCCUPATIONAL THERAPY EVALUATION PLAN OF CARE: Assessment: Andrew 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 He presents with impairments of AROM. He may benefit from skilled occupational therapy services to improve function. Prognosis: Good Good due to: current objective clinical presentation Goals for Episode of Care created on 05/27/19 through 08/27/19 Patient will report a good understanding of diagnosis and OT recommendations for progression of program Patient will increase AROM of all digit of right hand to WNL and index finger to WFL in order to be able to perform basic ADL. Patient will independently demonstrate correct application of hand orthosis and verbalize understanding of proper wear/care by end of session. Patient will report a good understanding of edema control techniques Patient will report a good understanding of the use of modalities to help manage discomfort and promote healing Patient will independently demonstrate scar massage/management in order to decrease scar adherence bydischarge Planned Interventions, Frequency, and Duration: Current Frequency: 1x every other week Duration: 12 weeks Total Number of Visits Planned: 6 Planned Treatment Interventions: Custom orthosis fabrication;Therapeutic exercise;Manual therapy;Self-fci management;ModalitiesFlu idotherapy PLAN FOR NEXT VISIT: scar mobilization progression redema glove progress AROM PROM Patient demonstrates good understanding of plan of care and treatment. The above goals and plan of care were discussed and agreed upon by patient/family. 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 Functional Limitations: weight bearing;gripping;pinchin g Prior Level of Function: Independent without limitations Patient Goals: to resume function Intake Information: Prescription present Previous Treatment: None Falls Interview: No positive findings with falls interview Pain: Pain Pain Level: 0 Pain Location: Hand - Right Description: Sore Frequency: Intermittent Post Treatment Pain Post Treatment Pain Level: 0 Post Treatment Pain Location: Hand - Right PROMIS Scales Higher is Better 08/08/2016 11/17/2016 05/25/2019 Phys Func - Score - - 46 (within normal limits) Phys Func - Percentile - - 34 % GH Physical - Percentile 41 % 22 % - GH Mental - Percentile 63 % 82 % - T-scores: mean of general population = 50. 5 points is clinically meaningfully difference Percentiles provide an indication of how the patient's score ranks in relation to the general population. Higher percentile rankings indicate better function/quality of life. 50th percentile is the average of the general population and indicates half of respondents had a worse score. T-scores: mean of general population = 50. 5 points is clinically meaningfully difference Percentiles provide an indication of how the patient's score ranks in relation to the general population. Higher percentile rankings indicate better function/quality of life. 50th percentile is the average of the general population and indicates half of respondents had a worse score. OBJECTIVE MEASURES WITH LEVEL OF FUNCTION: Hand Skin / Wound: Sutures Wound Description: Steri-strips Edema Location: right hand Edema Description: Moderate Edema Measurements: Wrist (DWC) (cm);DPC (cm) R Wrist (DWC) (cm): 17 L Wrist (DWC) (cm): 16.9 R DPC (cm): 24.1 L DPC (cm): 22.6 Shoulder AROM: WFL Elbow AROM: WFL Wrist AROM: Right Limitation Right Hand AROM: All Digits Thumb AROM: WFL Sensation: Denies tingling or numbness UE AROM R Forearm Supination: 90 Degrees R Forearm Pronation: 85 Degrees R Wrist Extension: 65 Degrees R Wrist Flexion: 65 Degrees R Wrist Radial Deviation: 35 Degrees R Wrist Ulnar Deviation: 35 Degrees Hand AROM R Index Finger MP Extension: -34 Degrees R Index Finger MP Flexion: 50 Degrees R Index Finger PIP Extension : 0 Degrees R Index Finger PIP Flexion: 22 Degrees R Index Finger DIP Extension : 0 Degrees R Index Finger DIP Flexion: 7 Degrees R Middle Finger MP Extension : -34 Degrees R Middle Finger MP Flexion : 60 Degrees R Middle Finger PIP Extension: 0 Degrees R Middle Finger PIP Flexion : 55 Degrees R Middle Finger DIP Extension : 0 Degrees R Middle Finger DIP Flexion : 30 Degrees R Ring Finger MP Extension : -20 Degrees R Ring Finger MP Flexion : 60 Degrees R Ring Finger PIP Extension: 0 Degrees R Ring Finger PIP Flexion : 71 Degrees R Ring Finger DIP Extension: 0 Degrees R Ring Finger DIP Flexion : 42 Degrees R Little Finger MP Extension : -20 Degrees R Little Finger MP Flexion : 72 Degrees R Little Finger PIP Extension : 0 Degrees R Little Finger PIP Flexion : 76 Degrees R Little Finger DIP Extension : 0 Degrees R Little Finger DIP Flexion : 66 Degrees Education: Education Learning Preferences: Demonstration;Explanatio n Barriers: None Learning/educational needs: Plan of Care;Home exercise program;Brace Fit Education Provided: Yes, see treatment interventions for education provided Education Provided To: Patient Education Mode/Type: Demonstration;Explanatio n/Discussion Response to Education/Teach Back: States/Identifies;Return Demonstration;Requires Review/Additional Education TREATMENT: Evaluation Evaluation Therapeutic Exercise: 1: tendon gliding 2: blocking 3: PROM all digits except index 4: fabricated hand splint instructed in weatr schedule and precautions Skilled Intervention: Patient was educated in proper exercise technique and purpose for exercises. Skilled judgment was provided in selection of appropriate interventions. Provided written instruction for home exercise program to facilitate proper performance and compliance. Self-Halfway Management: 1: instructed in activity modification and healing 2: educated in use of ice and or heat with precautions 3: educated in scar massage Skilled Intervention: Skilled judgment in the selection of proper modification for activity of daily living/home management based on clinical presentation, deficits, and needs. Custom orthosis: L 3913 HFO custom w/o joints (oppon/ hand sharif/ hand trigger/ other) Custom orthosis to provide Pt practiced orthosis application, donning on/off while under OT's supervision. and to promote healing. 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 . Skilled Intervention: Clinical knowledge and skills required for custom orthotic fabrication and wearing schedule Billing: [place]: Evaluation - Moderate Complexity (76514) Self Care / Home Management (63436): 1:1 time:10 minutes (1 unit: 8-22 mins) Therapeutic Exercise (80545): 1:1 time:10 minutes (1 unit: 8-22 mins) Custom hand splint Total time: 55 minutes Anna Mann OT/NALLELY -------- Annotated image of OT HAND TENDON GLIDING FINGER EX'S last updated by Anna Mann on 05/27/2019 9:29 AM Normal [facility] PROGRESSon 05-27-2019 PROGRESS HNO ID: [id number] Author: Anna (Ot) Pilo Service: ? 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 He presents with impairments of AROM. He may benefit from skilled occupational therapy services to improve function. Prognosis: Good Good due to: current objective clinical presentation Goals for Episode of Care created on 05/27/19 through 08/27/19 Patient will report a good understanding of diagnosis and OT recommendations for progression of program Patient will increase AROM of all digit of right hand to WNL and index finger to WFL in order to be able to perform basic ADL. Patient will independently demonstrate correct application of hand orthosis and verbalize understanding of proper wear/care by end of session. Patient will report a good understanding of edema control techniques Patient will report a good understanding of the use of modalities to help manage discomfort and promote healing Patient will independently demonstrate scar massage/management in order to decrease scar adherence bydischarge Planned Interventions, Frequency, and Duration: Current Frequency: 1x every other week Duration: 12 weeks Total Number of Visits Planned: 6 Planned Treatment Interventions: Custom orthosis fabrication;Therapeutic exercise;Manual therapy;Self-fci management;ModalitiesFlu idotherapy PLAN FOR NEXT VISIT: scar mobilization progression redema glove progress AROM PROM Patient demonstrates good understanding of plan of care and treatment. The above goals and plan of care were discussed and agreed upon by patient/family. 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 Functional Limitations: weight bearing;gripping;pinchin g Prior Level of Function: Independent without limitations Patient Goals: to resume function Intake Information: Prescription present Previous Treatment: None Falls Interview: No positive findings with falls interview Pain: Pain Pain Level: 0 Pain Location: Hand - Right Description: Sore Frequency: Intermittent Post Treatment Pain Post Treatment Pain Level: 0 Post Treatment Pain Location: Hand - Right PROMIS Scales Higher is Better 08/08/2016 11/17/2016 05/25/2019 Phys Func - Score - - 46 (within normal limits) Phys Func - Percentile - - 34 % GH Physical - Percentile 41 % 22 % - GH Mental - Percentile 63 % 82 % - T-scores: mean of general population = 50. 5 points is clinically meaningfully difference Percentiles provide an indication of how the patient's score ranks in relation to the general population. Higher percentile rankings indicate better function/quality of life. 50th percentile is the average of the general population and indicates half of respondents had a worse score. T-scores: mean of general population = 50. 5 points is clinically meaningfully difference Percentiles provide an indication of how the patient's score ranks in relation to the general population. Higher percentile rankings indicate better function/quality of life. 50th percentile is the average of the general population and indicates half of respondents had a worse score. OBJECTIVE MEASURES WITH LEVEL OF FUNCTION: Hand Skin / Wound: Sutures Wound Description: Steri-strips Edema Location: right hand Edema Description: Moderate Edema Measurements: Wrist (DWC) (cm);DPC (cm) R Wrist (DWC) (cm): 17 L Wrist (DWC) (cm): 16.9 R DPC (cm): 24.1 L DPC (cm): 22.6 Shoulder AROM: WFL Elbow AROM: WFL Wrist AROM: Right Limitation Right Hand AROM: All Digits Thumb AROM: WFL Sensation: Denies tingling or numbness UE AROM R Forearm Supination: 90 Degrees R Forearm Pronation: 85 Degrees R Wrist Extension: 65 Degrees R Wrist Flexion: 65 Degrees R Wrist Radial Deviation: 35 Degrees R Wrist Ulnar Deviation: 35 Degrees Hand AROM R Index Finger MP Extension: -34 Degrees R Index Finger MP Flexion: 50 Degrees R Index Finger PIP Extension : 0 Degrees R Index Finger PIP Flexion: 22 Degrees R Index Finger DIP Extension : 0 Degrees R Index Finger DIP Flexion: 7 Degrees R Middle Finger MP Extension : -34 Degrees R Middle Finger MP Flexion : 60 Degrees R Middle Finger PIP Extension: 0 Degrees R Middle Finger PIP Flexion : 55 Degrees R Middle Finger DIP Extension : 0 Degrees R Middle Finger DIP Flexion : 30 Degrees R Ring Finger MP Extension : -20 Degrees R Ring Finger MP Flexion : 60 Degrees R Ring Finger PIP Extension: 0 Degrees R Ring Finger PIP Flexion : 71 Degrees R Ring Finger DIP Extension: 0 Degrees R Ring Finger DIP Flexion : 42 Degrees R Little Finger MP Extension : -20 Degrees R Little Finger MP Flexion : 72 Degrees R Little Finger PIP Extension : 0 Degrees R Little Finger PIP Flexion : 76 Degrees R Little Finger DIP Extension : 0 Degrees R Little Finger DIP Flexion : 66 Degrees Education: Education Learning Preferences: Demonstration;Explanatio n Barriers: None Learning/educational needs: Plan of Care;Home exercise program;Brace Fit Education Provided: Yes, see treatment interventions for education provided Education Provided To: Patient Education Mode/Type: Demonstration;Explanatio n/Discussion Response to Education/Teach Back: States/Identifies;Return Demonstration;Requires Review/Additional Education TREATMENT: Evaluation Evaluation Therapeutic Exercise: 1: tendon gliding 2: blocking 3: PROM all digits except index 4: fabricated hand splint instructed in weatr schedule and precautions Skilled Intervention: Patient was educated in proper exercise technique and purpose for exercises. Skilled judgment was provided in selection of appropriate interventions. Provided written instruction for home exercise program to facilitate proper performance and compliance. Self-Halfway Management: 1: instructed in activity modification and healing 2: educated in use of ice and or heat with precautions 3: educated in scar massage Skilled Intervention: Skilled judgment in the selection of proper modification for activity of daily living/home management based on clinical presentation, deficits, and needs. Custom orthosis: L 3913 HFO custom w/o joints (oppon/ hand sharif/ hand trigger/ other) Custom orthosis to provide Pt practiced orthosis application, donning on/off while under OT's supervision. and to promote healing. 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 . Skilled Intervention: Clinical knowledge and skills required for custom orthotic fabrication and wearing schedule Billing: [place]: Evaluation - Moderate Complexity (37746) Self Care / Home Management (94188): 1:1 time:10 minutes (1 unit: 8-22 mins) Therapeutic Exercise (57583): 1:1 time:10 minutes (1 unit: 8-22 mins) Custom hand splint Total time: 55 minutes Anna Mann OT/[facility] PROGRESS HNO ID: [id number] Author: Marian WalterCt) EZ Mccauley Service: ? Author Type: Clinical Diesel Locomotive Firer Type: Progress Notes Filed: 05/27/2019 7:57 AM Note Text: NAME:Andrew Peraza MD DATE: May 27, 2019 CCF#: [id number] Upper Extremity X-Ray(s): Hand, right COMPLETED TECH ID SIGN: MARIAN MCCAULEY [facility] XR HAND 3V PA/LAT/OBL RTon 0 05-27-2019 XR HAND 3V PA/LAT/OBL RT * * *Final Report* * * DATE OF EXAM: May 27 2019 7:56AM MDO [id number] - XR HAND 3V PA/LAT/OBL RT / PROCEDURE REASON: [id number] * * * * Physician Interpretation * * * * RIGHT hand EXAM DATE/TIME: 05/27/2019 7:56 AM HISTORY: 78 years old Clinical information: Pain POST OP INDEX TECHNIQUE: Images: XR HAND 3V PA/LAT/OBL RT Comparison: 05/19/2019 x-ray and 05/21/2019 fluoroscopy study RESULT: Findings: Marked bony demineralization. No fractures or dislocations are seen. Moderate narrowing of all interphalangeal joints as well as the first MCP joint. Moderate narrowing of the first metacarpal carpal joint. IMPRESSION: No acute pathology. Degenerative changes Gasfitter: PAUL Transcribe Date/Time: May 27 2019 8:03A Dictated by : JENNI ULLOA DO This examination was interpreted and the report reviewed and electronically signed by: JENNI ULLOA DO on May 27 2019 8:05AM EST [id number] [facility] ANES Gael 05-21-2019 ANES POST HNO ID: [id number] Author: Андрей Powell Service: Anesthesiology Author Type: Anesthesiologist Type: Anesthesia PostOp Filed: 05/21/2019 4:17 PM Note Text: POST ANESTHESIA EVALUATION NOTE SERVICE DATE: 05/21/2019 SERVICE TIME: 4:16 PM : 1940 Vitals: 05/21/19 1056 05/21/19 1317 05/21/19 1345 Temp: 36.7 ?C (98.1 ?F) 36.3 ?C (97.3 ?F) 36.6 ?C (97.9 ?F) 05/21/19 1315 05/21/19 1317 05/21/19 1330 05/21/19 1345 BP: 125/62 125/62 125/64 133/74 05/21/19 1056 05/21/19 1317 05/21/19 1330 05/21/19 1345 Pulse: 78 70 69 65 05/21/19 1056 05/21/19 1317 05/21/19 1330 05/21/19 1345 Resp: 18 16 14 28 05/21/19 1056 05/21/19 1317 05/21/19 1330 05/21/19 1345 SpO2: 100% 100% 99% 99% Validated Vital Signs: Yes POST ANES STATUS: No apparent anesthetic complications. The patient is appropriately hydrated with stable respiratory and cardiovascular status. Patient has safe and adequate airway control. The patient has appropriate pain relief and no significant post operative nausea or vomiting. The patient has achieved baseline mental status. Intra-Operative Events: No Significant Anesthesia Events Further assessment by Anesthesia Service: None Other Remarks: SIGNATURE: Андрей Powell MD PATIENT NAME: Andrew Mari Karmen BORJAS DATE: May 21, 2019 TIME: 4:16 PM PAGER/CONTACT #: [facility] ANES PREOPon 05-21-2019 ANES PREOP HNO ID: [id number] Author: Андрей Powell Service: Anesthesiology Author Type: Anesthesiologist Type: Anesthesia PreOp Filed: 05/21/2019 10:47 AM Note Text: ANESTHESIOLOGY DAY OF SURGERY NOTE SERVICE DATE: 05/21/2019 SERVICE TIME: 10:47 AM : 1940 Procedure(s) (LRB): ORIF METACARPAL (Right) Surgeon(s): Romel Queen Estimated body mass index is 26.95 kg/m? as calculated from the following: Height as of 03/24/19: 167.6 cm (5' 6). Weight as of 03/24/19: 75.8 kg (167 lb). Most recent hematocrit and potassium results: Hematocrit 35.2 11/01/2016 Potassium 4.2 03/24/2019 ANES DOS/PREOP NOTE: Vitals: There were no vitals filed for this visit. 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 Obstructive Sleep Apnea History of Colonic Polyps Diverticulosis of Large Intestine Without Hemorrhage Heartburn PAST MEDICAL HISTORY Diagnosis Date - Arthritis of knee 08/02/2016 - Benign neoplasm of colon - Diverticulosis of colon (without mention of hemorrhage) - GERD (gastroesophageal reflux disease) - Hyperlipidemia - Hypertension - JOSE MIGUEL (obstructive sleep apnea) [facility] [employer] - pt returned autopap machine on 2017 - Prostate cancer (HCC) - Situational depression 11/24/2016 - Snoring - Tubular adenoma of colon 03/14/20172014--tubular adenoma in mid transverse colon and rectum PAST SURGICAL HISTORY Procedure Laterality Date - COLONOSCOP W/ OR W/O [facility] SPEC 05/14/14 Colonoscopy - COLONOSCOP W/ OR W/O [facility] SPEC 04/29/2018 Colonoscopy - COLONOSCOPY W/BX 04/29/10 - DESTRUCTION, 1ST LESION 06/19/12 Amputation/cauterization right medial malleolus - EGD - EGD W/O OR W/BRUSH/WASH 04/29/2018 EGD - KNEE ARTHROSCOPY Right 2004 - LAP RETROPUBIC PROSTATECTOMY 1996 - REPAIR ING HERNIA,5+Y/O,REDUCIBL Right 12/08/14 [place] [facility] - SHOULDER ARTHROSCOPY/SURGERY Right 1988 - SHOULDER ARTHROSCOPY/SURGERY Left 1989 - TONSILLECTOMY AND ADENOIDECTOMY HX 1943 - TOTAL KNEE REPLACEMENT Right 10/30/2016 Knee replacement, total FAMILY HISTORY Problem Relation Age of Onset - Hypertension Mother Social History: Social History Tobacco Use - Smoking status: Former Smoker Types: Pipe Last attempt to quit: 10/04/2006 Years since quittin.6 - Smokeless tobacco: Never Used - Tobacco comment: Pt quit smoking pipe. Substance Use Topics - Alcohol use: Yes Alcohol/week: 17.5 standard drinks Types: 7 Mixed Drinks per week - Drug use: No No current facility-administered medications on file prior to encounter. Current Outpatient Medications on File Prior to Encounter Medication Sig - Hydrochlorothiazide 12.5 mg capsule Take 1 capsule by mouth once daily. - metoprolol succinate ER (TOPROL XL) 100 mg Tb24 Take 0.5 tablets by mouth once daily. - omeprazole (PRILOSEC) 20 mg capsule Take 1 capsule by mouth once daily on an empty stomach - lisinopril (ZESTRIL, PRINIVIL) 20 mg tablet Take 1 tablet by mouth once daily. - atorvastatin (LIPITOR) 10 mg tablet Take 0.5 tablets by mouth once daily. - clindamycin (CLEOCIN) 300 mg capsule Take 2 capsules by mouth as directed. one hour prior to dental appointment - zolpidem (AMBIEN) 5 mg tablet Take 1 tablet by mouth at bedtime as needed for up to 30 days. Current Facility-Administered Medications Medication Dose Route Frequency Provider Last Rate Last Dose - lidocaine 10 mg/mL (1 %) 1-2 mg injection (XYLOCAINE) 0.1-0.2 mL INTRADERMAL PRN Tran (Pa) [facility] - lactated ringers infusion 5-30 mL/hr INTRAVENOUS CONTINUOUS Tran (Pa) [facility] - clindamycin iv piggyback 600 mg in D5W 50 mL (CLEOCIN) 600 mg INTRAVENOUS Pre-Op Once Tran (Pa) [facility] - midazolam (PF) 2 mg injection (VERSED) 2 mg INTRAVENOUS ONCE Андрей Powell Allergies: ALLERGIES Allergen Reactions - Penicillin G urticaria - Zoloft [Sertraline * Other: See Comments nightmares DOS EXAM: Adequate NPO status: Yes Anesthetic risks, benefits, alternatives, personnel and consent discussed: Yes Patient agrees to proceed: Yes Previous Anesthesia: No history of adverse event. Airway Assessment: MP 2; Neck ROM: Full ROM without neurologic symptoms; Airway Evaluation: No significant abnormalities Symptoms of Sleep Apnea: None Dentition: Teeth intact Additional Physical Exam: Lungs: Patient health status unchanged since recent history and physical. See history and physical for exam findings. Cardiac: Patient health status unchanged since recent history and physical. See history and physical for exam findings. Additional Pertinent Findings: N/A Blood Products: Not anticipated for this procedure. Anesthetic Plan: MAC with Sedation and Block with Sedation Pain Management Plan: Parenteral or Oral ASA Class: 2 Other Medical Problems: None I have interviewed and examined the patient. I have reviewed the medical record and/or the pre-anesthesia evaluation, pertinent labs, and test results. Significant changes in the patient's condition since the History and Physical, not otherwise documented in primary service progress notes: No This contains updated information obtained within 48 hours of Surgery/Procedure. SIGNATURE: Андрей Powell MD PATIENT NAME: Andrew Peraza MD DATE: May 21, 2019 TIME: 10:47 AM CSN: [id number] [facility] HISTORY PHYSICALon 0 HISTORY PHYSICAL HNO ID: [id number] Author: Romel Queen Service: Orthopaedic Surgery Author Type: Physician Type: HANDP Filed: 05/21/2019 11:43 AM Note Text: Tran Young PA-C ? Department of Orthopaedics Orthopaedics [address] [facility] [address] Dept: [phone] Dept ? ? May 19, 2019 ? ? CHIEF COMPLAINT: New and Pain of the Right Index Finger ? Patient presents with pain in his right index finger after lifting a bucket filled with stones yesterday. [place] finger snap when he lifted the bucket. Pain is a 6/10 aching. 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 ? ASSESSMENT: S63.269A Closed dislocation of MCP joint of hand, initial encounter (primary encounter diagnosis) ? PLAN: We discussed surgical intervention, the patients questions were addressed. The risks, benefits, alternatives and were discussed, patinet understands and wishes to pursue surgical intervention. ? ? Andrew Peraza MD was advised as to contrast therapies and/or to take analgesics/anti-inflamma tories as needed and all contraindications were reviewed. ? 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 Gen:There were no vitals taken for this visit. nl development, non obese, no deformities ENT: Normocephalic, normal hearing, moist mucosa CV: Pulses:Radial= 2+ and symmetric, capillary refill < 2 secs, no peripheral edema/varicosities Skin: no rash, bruising or lesions. Good turgor. Psych: cooperative and appropriate, alert and oriented x 3, good mood and affect. Musculoskeletal: Right index digit with mild edema of the MCP joint. Unable to actively or passively fully extend the MCP joint. Neurologically intact. ? IMAGING: IMPRESSION: Volar subluxation right second MCP joint. ?No fracture identified. Gasfitter: PAUL ? Transcribe Date/Time: May 19 2019 ?1:43P Dictated by : CORWIN DAVIS, DO This examination was interpreted and the report reviewed and electronically signed by: CORWIN DAVIS, DO on May 19 2019 ?1:47PM ?EST Results-Findings ? * * *Final Report* * * DATE OF EXAM: May 19 2019 ?1:40PM ? WRX ? [id number] ?- ?XR DIGIT 3V FRONTAL/LAT/OBL RT ?/ PROCEDURE REASON: Pain of finger of right hand ?? ? * * * * Physician Interpretation * * * * ?EXAMINATION: ?XR DIGIT 3V FRONTAL/LAT/OBL RT PATIENT/TECHNOLOGIST PROVIDED HISTORY: ? pt states was lifting something heavy and felt something tear in knuckle of right index finger a couple of days ago marked by the arrow. CLINICAL INFORMATION: ?78 years old Male with Pain of finger of right hand TECHNIQUE: XR DIGIT 3V FRONTAL/LAT/OBL RT ?? Laterality: ?RIGHT ?? Number of different views (projections): 3 COMPARISON: None RESULT: Arrow utilized to indicate the patient's reported site of pain. Volar subluxation right second MCP joint. ?No fracture identified. ? Moderate degenerative changes second MCP, DIP and PIP joints. ?Severe degenerative changes first CMC joint and moderate degenerative changes first MCP joint. ? Supporting Subjective Information Below: ? Past Medical History: PAST MEDICAL HISTORY PAST MEDICAL HISTORY Diagnosis Date - Arthritis of knee 08/02/2016 - Benign neoplasm of colon ? - Diverticulosis of colon (without mention of hemorrhage) ? - GERD (gastroesophageal reflux disease) ? - Hyperlipidemia ? - Hypertension ? - JOSE MIGUEL (obstructive sleep apnea) ? ? [facility] [employer] - pt returned autopap machine on 2017 - Prostate cancer (HCC) ? - Situational depression 11/24/2016 - Snoring ? - Tubular adenoma of colon 03/14/2017 ? 2014--tubular adenoma in mid transverse colon and rectum ? Past Surgical History: PAST SURGICAL HISTORY PAST SURGICAL HISTORY Procedure Laterality Date - COLONOSCOP W/ OR W/O [facility] SPEC ? 05/14/14 ? Colonoscopy - COLONOSCOP W/ OR W/O [facility] SPEC ? 04/29/2018 ? Colonoscopy - COLONOSCOPY W/BX ? 04/29/10 - DESTRUCTION, 1ST LESION ? 06/19/12 ? Amputation/cauterization right medial malleolus - EGD ? ? - EGD W/O OR W/BRUSH/WASH ? 04/29/2018 ? EGD - KNEE ARTHROSCOPY Right 2004 - LAP RETROPUBIC PROSTATECTOMY ? 1996 - REPAIR ING HERNIA,5+Y/O,REDUCIBL Right 12/08/14 ? [facility] - SHOULDER ARTHROSCOPY/SURGERY Right 1988 - SHOULDER ARTHROSCOPY/SURGERY Left 1989 - TONSILLECTOMY AND ADENOIDECTOMY HX ? 1944 - TOTAL KNEE REPLACEMENT Right 10/30/2016 ? Knee replacement, total ? Family History: FAMILY HISTORY FAMILY HISTORY Problem Relation Age of Onset - Hypertension Mother ? ? Social History: SOCIAL HISTORY Social History ? Tobacco Use - Smoking status: Former Smoker ? ? Types: Pipe ? ? Last attempt to quit: 10/04/2006 ? ? Years since quittin.6 - Smokeless tobacco: Never Used - Tobacco comment: Pt quit smoking pipe. Substance Use Topics - Alcohol use: Yes ? ? Alcohol/week: 17.5 standard drinks ? ? Types: 7 Mixed Drinks per week - Drug use: No Medications: CURRENT MEDICATIONS Current Outpatient Medications Medication Sig - Hydrochlorothiazide 12.5 mg capsule Take 1 capsule by mouth once daily. - metoprolol succinate ER (TOPROL XL) 100 mg Tb24 Take 0.5 tablets by mouth once daily. - omeprazole (PRILOSEC) 20 mg capsule Take 1 capsule by mouth once daily on an empty stomach - lisinopril (ZESTRIL, PRINIVIL) 20 mg tablet Take 1 tablet by mouth once daily. - atorvastatin (LIPITOR) 10 mg tablet Take 0.5 tablets by mouth once daily. - clindamycin (CLEOCIN) 300 mg capsule Take 2 capsules by mouth as directed. one hour prior to dental appointment - zolpidem (AMBIEN) 5 mg tablet Take 1 tablet by mouth at bedtime as needed for up to 30 days. - predniSONE (DELTASONE) 10 mg tablet Take by mouth- 4 tabs daily for 3 days, then 2 tabs daily for 3 days, then 1 tab daily for 3 days with food. (Patient not taking: Reported on 05/19/2019 ) - fluticasone (FLONASE) 50 mcg/actuation nasal spray Use 2 Sprays in each nostril once daily. Rinse mouth after use. (Patient not taking: Reported on 05/19/2019 ) - docusate sodium (COLACE) 100 mg capsule Take 1 capsule by mouth twice daily. (Patient not taking: Reported on 05/19/2019 ) - B INFANTIS/B ANI/B SANDY/B BIFID (PROBIOTIC 4X ORAL) Take 1 capsule by mouth once daily. - LOW DOSE ASA 81MG TAB EC 1/day (Patient not taking: Reported on 05/19/2019) ? No current facility-administered medications for this visit. ? Allergies: Penicillin G; Zoloft [Sertraline Hcl] ? ? ROS: General (negative for fatigue, malaise, weight loss/gain) HEENT (negative for headache, earache, recent vision changes, sinus pain, sore throat) Respiratory (no recent shortness of breath, hemoptysis) CV (negative for chest tightness, palpitations) Musculoskeletal (see HPI) Psych (no depression, anxiety) ? ? REFERRING PHYSICIAN: Mr. Andrew Guerra Karmen BORJAS was referred to me for consultation by the following physician. This consultation note will be sent to the following physician by either mail or electronic medical record. ? SELF ? Ronal Masterson III MD [address] [phone] ? This note was partially generated using [employer] voice recognition system, and there may be some incorrect words, spellings, and punctuation that were not noted in checking the note before saving. ? ? Tran Young PA-C ? ? [facility] OPERATIVE NOon 05-21-2019 OPERATIVE NO HNO ID: [id number] Author: Romel Queen Service: Orthopaedic Surgery Author Type: Physician Type: Operative Report Filed: 05/22/2019 2:41 PM Note Text: OPERATIVE/PROCEDURE REPORT LOG ID: [id number] SURGERY/PROCEDURE DATE: 05/21/2019 INCISION/PROCEDURE START TIME: 12:03 PM INCISION CLOSE/PROCEDURE END TIME: 1:11 PM SURGEON(S)/PROCEDURALIST (S) AND [employer] HEAD INSPECTOR AND ADJUSTER(S): Surgeon(s) and Role: * Romel Queen - Primary Physician Passport Support Manager: Tran Young (Pa) SURGERY/PROCEDURE(S): Right, index finger, open reduction metacarpal phalangeal joint. 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 He was evaluated in the office and suspected to have a locked carpal phalangeal joint, likely secondary to collateral ligament draped over osteophyte. We reviewed the risks, benefits, alternatives and potential complications involving both operative and nonoperative treatment. He wished to pursue surgical intervention accordingly. On 05/21/2019, the patient was clearly identified in the preoperative area and marked accordingly on the right index finger by myself. He received 600 mg of clindamycin in the IV within 1 hour of incision or tourniquet. He was taken to the operative suite and placed in a supine position with an arm board on the right. Anesthesia assumed care of the head and neck for the remainder of the case. All other bony landmarks were appropriately padded in standard fashion. The right upper extremity had a well-padded tourniquet applied with cotton padding and set at 250 mmHg. The upper extremity was then sterilely prepped and draped in standard fashion. An appropriate timeout was conducted and all in the room were in agreement, signed consent form was on the chart, images were available for viewing and mini fluoroscopic unit was present. The upper extremity was then exsanguinated with an Esmarch bandage after a mixture of 1% lidocaine plain and Quarter percent Marcaine plain was provided for a total of 20 cc for a local anesthetic and digital block. The tourniquet was applied at 250 mmHg. Longitudinal incision was made directly over the MCP joint, superficially through the dermis. Any crossing bleeders were taken care of with bipolar electrocautery. Generous skin flaps were made and a self retainer was placed. Based on his preoperative, oblique radiographs, the suspicion was that the radial sided collateral ligament was the affected side, thus I made a mid lateral incision, dorsal to the collateral ligament complex, full-thickness through the extensor burciaga retinaculum and secondarily through the joint capsule. There was some osteophyte noted and this was removed with a [place] were but not at this point prominent or large enough to be causing the pathology. The joint surface was certainly slightly eburnated with areas of grade 3 chondral loss. I worked my way down with a set of [place] elevators and it did not appear that the radial, collateral ligament complex was involved. I did try to get down all the way to the volar plate to see if anything was causing the locking of the joint, though I was not able to get confirmed extension with gentle passive manipulation. Thus, I elected to open on the ulnar collateral side again, just dorsal to the collateral ligament complex. On this side I was able to fit [place] in the joint and sweep down below the ulnar-sided condyle of the metacarpal head and with some gentle longitudinal traction and extension, I was able to get a very satisfying clunk with immediate full range of motion of the joint through a full extension and flexion moment. On oblique radiographs, there did appear to be a rather impressive prominence of the metacarpal head, however on visual inspection through the surgical wound, there did not appear to be any obvious osteophytic changes which may require excision. This very well may be simply the contour of his bone at this stage in life, and I felt it would cause too much damage to try to osteotomize the metacarpal head. I certainly checked full range of motion through multiple different stressors of the joint and positioning of the finger and there was no further catching or locking involved in the motion. The joint and wounds were copiously irrigated with normal saline. I first selected a 5-0 Vicryl suture and repaired both capsules on the radial and ulnar side and a running, locked fashion. I then selected a 3-0 Vicryl to repair the extensor burciaga on both the radial and ulnar sides, stabilizing the extensor tendon apparatus. I irrigated again and the tourniquet was taken down and hemostasis was observed with bipolar electrocautery. The skin incision was closed with a running, horizontal mattress suture with a 3-0 nylon. Xeroform gauze, sterile 4 x 4's, cotton padding and a well fashioned volar splint was applied. There were no complications during the procedure. The patient was safely awoken and transferred to the postanesthetic care unit in stable condition. PRE-OP/PRE-PROCEDURE DIAGNOSIS: Right index finger, a locked metacarpal phalangeal joint POST-OP/POST-PROCEDURE DIAGNOSIS: Same as Preop ESTIMATED BLOOD LOSS: 0 ml SPECIMENS: None IMPLANTABLE DEVICES: None DRAINS: None COMPLICATIONS: None PARTICIPATION IN SURGERY/PROCEDURE: I/primary surgeon/proceduralist performed the procedure with assistance. No qualified resident/fellow was available. operator assistant i cementing was important with patient transport, arm board and tourniquet application, manual manipulation of the digit and soft tissue and neurovascular structures protected through retraction, final skin closure, splint application and return of the patient to recovery. SIGNATURE: Romel Queen MD PATIENT NAME: Andrew Peraza DATE: May 22, 2019 TIME: 2:29 PM PAGER/CONTACT #: [facility] PLAN OF CAREon 05-21-2019 PLAN OF CARE HNO ID: [id number] Author: Elli Seay (Zapper) Service: Pharmacy Author Type: ? Type: Plan of Care Filed: 05/21/2019 1:59 PM Note Text: ATTORNEY RECRUITER BEDSIDE DELIVERY SURVEY 1. Patient to use [facility] Bedside Delivery - YES Insurance Information as follows: 2. Insurance card on file - YES 3. Credit card for payment - YES PHARMACY BEDSIDE DELIVERY SERVICE Patient Name: Andrew Peraza The marked outpatient medications were Filled at: [facility] and delivered to the patient's bedside to picked up at pharm Medication List START taking these medications traMADol 50 mg tablet Commonly known as: ULTRAM Take 1 tablet by mouth every 4 hours as needed for Pain for up to 7 days. X CONTINUE taking these medications atorvastatin 10 mg tablet Commonly known as: LIPITOR Take 0.5 tablets by mouth once daily. clindamycin 300 mg capsule Commonly known as: CLEOCIN Take 2 capsules by mouth as directed. one hour prior to dental appointment Hydrochlorothiazide 12.5 mg capsule Take 1 capsule by mouth once daily. lisinopril 20 mg tablet Commonly known as: ZESTRIL, PRINIVIL Take 1 tablet by mouth once daily. metoprolol succinate ER 100 mg Commonly known as: TOPROL XL Take 0.5 tablets by mouth once daily. omeprazole 20 mg capsule Commonly known as: PriLOSEC Take 1 capsule by mouth once daily on an empty stomach zolpidem 5 mg tablet Commonly known as: AMBIEN Take 1 tablet by mouth at bedtime as needed for up to 30 days. You might also be taking other medications not listed above. If you have questions about any of your other medications, talk to the person who prescribed them or your Primary Care Provider. Elli Seay (Zapper) PAGER: [phone] May 21, 2019 1:59 PM [facility] PT EDon 05-21-2019 PT ED HNO ID: [id number] Author: Espinoza Cherry Lomeli RN Service: Nursing Author Type: Registered Nurse Type: Patient Education Filed: 05/21/2019 2:07 PM Note Text: =POST OP LEARNING RESPONSE INSTRUCTION PROVIDED TO: Patient and family member METHOD OF INSTRUCTION: Written instruction - handouts Verbal instruction PATIENT / FAMILY RESPONSE: Verbalizes understanding of: POST-OPERATIVE INSTRUCTIONS-Correct actions to take to reduce postoperative complications FOLLOW-UP PLAN: Recommend - Recommend continued instruction and follow up as directed SUPPLEMENTAL MATERIAL: None REFERRAL (RECOMMENDATION): None Electronically Signed By: Espinoza Lomeli RN In Department: [facility] SURGERY [facility] PT ED HNO ID: [id number] Author: Nguyễn WalterRnGonzalo Escoto RN Service: Nursing Author Type: Registered Nurse Type: Patient Education Filed: 05/21/2019 10:37 AM Note Text: PATIENT EDUCATION TOPIC: PROCEDURE / SURGERY: Pre-op Teaching: PATIENT NAME: Andrew Guerra Karmen BORJAS PATIENT LOCATION: [facility] READINESS TO LEARN COGNITIVE ABILITY: Alert and oriented MOTIVATION TO LEARN: Interested FAMILY SUPPORT: Moderate - Family present but overwhelmed INSTRUCTION PROVIDED TO: Patient PATIENT LEARNS BEST BY: Individual Instruction Verbal Instruction FACTORS AFFECTING LEARNING: None PHYSICAL LIMITATIONS AFFECTING LEARNING: None LEARNING RESPONSE DIAGNOSIS: ADULT: PATIENT/FAMILY RESPONSE: Verbalizes understanding of: METHOD OF INSTRUCTION: Individual instruction Verbal instruction FOLLOW-UP PLAN: Patient instructed to call with any further issues Follow-up with Primary Care INSTRUCTIONAL AIDS USED: NA SUPPLEMENTAL MATERIAL PROVIDED TO PATIENT: None REFERRAL (RECOMMENDATION): None Electronically Signed By: Nguyễn Escoto RN [facility] XR FLUOROSCOPYon 05-21-2019 XR FLUOROSCOPY * * *Final Report* * * DATE OF EXAM: May 21 2019 1:25PM [facility] [id number] - XR FLUOROSCOPY / PROCEDURE REASON: ORIF RIGHT MCP JOINT FOR DISLOCATION * * * * Physician Interpretation * * * * INDICATION: Intraoperative fluoroscopy TECHNIQUE: 2 submitted fluoroscopic spot images Fluoroscopic Radiation Summary: Plane A, Air Kerma: 10.0 mGy Plane B, Air Kerma: 0.0 mGy Dose Area Product (DAP): 0.0 mGy*cm^2 Fluoro time: 0:21 min:sec FINDINGS/ IMPRESSION: 2 submitted fluoroscopic spot images of the labeled right hand. No acute fracture is identified within the limitations of fluoroscopic technique. Refer to the procedure note for details regarding this procedure. Gasfitter: PAUL Transcribe Date/Time: May 21 2019 1:28P Dictated by : MINNA GONZALEZ MD This examination was interpreted and the report reviewed and electronically signed by: MINNA GONZALEZ MD on May 21 2019 1:29PM EST [id number] [facility] HOSPon 05-19-2019 HOSP Patient:Mauri Peraza hawa Guerra MD MRN: Height:5' 6(1.676 m) Weight:No patient weight recorded within the last 30 days. Outpatient Medications as of 05/21/19: Hydrochlorothiazide 12.5 mg capsule metoprolol succinate ER (TOPROL XL) 100 mg Tb24 omeprazole (PRILOSEC) 20 mg capsule lisinopril (ZESTRIL, PRINIVIL) 20 mg tablet atorvastatin (LIPITOR) 10 mg tablet clindamycin (CLEOCIN) 300 mg capsule zolpidem (AMBIEN) 5 mg tablet Admission/Clinic Administered Medications as of 05/21/19: lidocaine 10 mg/mL (1 %) 1-2 mg injection (XYLOCAINE) lactated ringers infusion clindamycin iv piggyback 600 mg in D5W 50 mL (CLEOCIN) midazolam (PF) 2 mg injection (VERSED) Problem List: Impotence of organic origin [N52.9] Malignant neoplasm of prostate (HCC) [C61] Essential hypertension [I10] H/O BCC skin cancer: other malignant neoplasm of skin [Z85.828] Personal history of malignant melanoma of skin [Z85.820] Lower urinary tract symptoms (LUTS) [R39.9] Hyperlipidemia [E78.5] GERD (gastroesophageal reflux disease) [K21.9] BCC (basal cell carcinoma of skin) [C44.91] Insomnia [G47.00] Status post total knee replacement, right [Z96.651] Tubular adenoma of colon [D12.6] DDD (degenerative disc disease), lumbar [M51.36] 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 Pt. has had TKA and will need Synthes hand tray. Krissy Calderon [facility] 05/19/2019 4:04 PM Signed Surgical request and post ops completed. Daniella Lewis RN 05/19/2019 4:[address] Queen, pt. will need OT the following Sunday after first post-op. Pt. willing to go to [place]. Please place OT order. Tran Young PA-C 05/19/2019 4:29 PM Signed OT order placed Daniella Lewis RN 05/19/2019 4:43 PM Signed Rickie please schedule for OT on 05-27-2019 after appt. Rickie Saeed 05/19/2019 4:53 PM Signed OT appointment scheduled after post op. Daniella Lewis RN 05/20/2019 12:02 PM Addendum Pt. called and asked if he is to be NPO morning or surgery? Instructed that actually he should be NPO after midnight the night prior, but that someone should be calling him today with instructions on this and medications. Instructed that if he does not receive instructions on which meds to take with sip of H2O in am, or hold, that he should take all meds with him to hospital for further instruction. Pt. verbalizes understanding. Post-op appointments mailed to pt. Previous Version Trinidad Brownlee Ma 05/21/2019 10:55 AM Signed Patient having surgery today. Encounter to be closed. Progress Notes ([facility]): RT Mariam, Tech 05/19/2019 1:39 PM Signed Radiology Service Progress Note PATIENT NAME: Andrew Peraza MD DATE OF SERVICE: May 19, 2019 TIME: 1:32 PM PATIENT IDENTITY VERIFICATION COMPLETED USING TWO (2) IDENTIFIERS: Name and Date of confirmed by patient verbally. PATIENT GENDER DATA: Male PATIENT RELEVANT IMPLANT DATA REVIEWED: Not Applicable RADIOLOGY DEPARTMENT: General X-ray: Exam(s) Completed: Upper Extremity X-Ray(s): Fingers/Thumb, right : PERIPHERAL IV DATA: Not applicable SIGNED BY: RT Mariam May 19, 2019 1:32 PM [facility] Vital Signs Date Time Vital Sign Value Performing Clinician Tejinder frey 11-17-2024 13:03-0400 Body mass index (BMI) [Ratio] 27.06 kg/m2 Dontae Rowe MD Work Phone: [facility] 11-17-2024 13:03-0400 Body weight 74.89 kg Dontae Rowe MD Work Phone: [facility] 11-17-2024 13:03-0400 Diastolic blood pressure 71 mm[Hg] Dontae Rowe MD Work Phone: [facility] 11-17-2024 13:03-0400 Heart rate 68 /min Dontae Rowe MD Work Phone: [facility] 11-17-2024 13:03-0400 Respiratory rate 16 /min Dontae Rowe MD Work Phone: [facility] 11-17-2024 13:03-0400 Systolic blood pressure 133 mm[Hg] Dontae Rowe MD Work Phone: [facility] 04-22-2024 10:44-0500 Body height 166.4 cm Ross Blandon MD Work Phone: [facility] 04-22-2024 10:44-0500 Body mass index (BMI) [Ratio] 27.04 kg/m2 Ross Blandon MD Work Phone: [facility] 04-22-2024 10:44-0500 Body weight 74.84 kg Ross Blandon MD Work Phone: [facility] 04-22-2024 10:44-0500 Diastolic blood pressure 74 mm[Hg] Ross Blandon MD Work Phone: [facility] 04-22-2024 10:44-0500 Heart rate 68 /min Ross Blandon MD Work Phone: [facility] 04-22-2024 10:44-0500 Respiratory rate 16 /min Ross Blandon MD Work Phone: [facility] 04-22-2024 10:44-0500 Systolic blood pressure 128 mm[Hg] Ross Blandon MD Work Phone: [facility] 09-25-2023 09:27-0400 Body height 167.6 cm Al Mullen PA-C Work Phone: [facility] 09-25-2023 09:27-0400 Body mass index (BMI) [Ratio] 27.12 kg/m2 Al Mullen PA-C Work Phone: [facility] 09-25-2023 09:27-0400 Body temperature 98.2 [degF] Al Mullen PA-C Work Phone: [facility] 09-25-2023 09:27-0400 Body weight 76.2 kg Al Mullen PA-C Work Phone: [facility] 09-25-2023 09:27-0400 Diastolic blood pressure 76 mm[Hg] Al Mullen PA-C Work Phone: [facility] 09-25-2023 09:27-0400 Heart rate 68 /min Al Mullen PA-C Work Phone: [facility] 09-25-2023 09:27-0400 Respiratory rate 14 /min Al Mullen PA-C Work Phone: [facility] 09-25-2023 09:27-0400 SaO2% (BldA) [Mass fraction] 97 % Al Mullen PA-C Work Phone: [facility] 09-25-2023 09:27-0400 Systolic blood pressure 128 mm[Hg] Al Mullen PA-C Work Phone: [facility] 04-20-2023 09:50-0500 Body height 166.4 cm Ross Blandon MD Work Phone: [facility] 04-20-2023 09:50-0500 Body weight 73.48 kg Ross Blandon MD Work Phone: [facility] 04-20-2023 09:50-0500 Diastolic blood pressure 80 mm[Hg] Ross Blandon MD Work Phone: [facility] 04-20-2023 09:50-0500 Heart rate 64 /min Ross Blandon MD Work Phone: [facility] 04-20-2023 09:50-0500 Respiratory rate 16 /min Ross Blandon MD Work Phone: [facility] 04-20-2023 09:50-0500 Systolic blood pressure 132 mm[Hg] Ross Blandon MD Work Phone: [facility] 12-12-2022 15:13-0400 Body height 167.6 cm Al Mullen PA-C Work Phone: [facility] 12-12-2022 15:13-0400 Body temperature 98.4 [degF] Al Mullen PA-C Work Phone: [facility] 12-12-2022 15:13-0400 Body weight 74.57 kg Al Mullen PA-C Work Phone: [facility] 12-12-2022 15:13-0400 Diastolic blood pressure 78 mm[Hg] Al Mullen PA-C Work Phone: [facility] 12-12-2022 15:13-0400 Heart rate 94 /min Al Mullen PA-C Work Phone: [facility] 12-12-2022 15:13-0400 Respiratory rate 14 /min Al Mullen PA-C Work Phone: [facility] 12-12-2022 15:13-0400 SaO2% (BldA) [Mass fraction] 97 % Al Mullen PA-C Work Phone: [facility] 12-12-2022 15:13-0400 Systolic blood pressure 136 mm[Hg] Al Mullen PA-C Work Phone: [facility] 12-29-2021 14:46-0400 Body temperature 97.5 [degF] Sherri Joel BADILLO.PAPER MACHINE SUPERVISOR Work Phone: [facility] 12-29-2021 14:46-0400 Body weight 71.67 kg Sherrilinnea Maldonado APRN.PAPER MACHINE SUPERVISOR Work Phone: [facility] 12-29-2021 14:46-0400 Diastolic blood pressure 84 mm[Hg] Sherri Maldonado APRN.PAPER MACHINE SUPERVISOR Work Phone: [facility] 12-29-2021 14:46-0400 Heart rate 68 /min Sherri Joel BADILLO.PAPER MACHINE SUPERVISOR Work Phone: [facility] 12-29-2021 14:46-0400 Respiratory rate 18 /min Sherrilinnea Maldonado APRN.PAPER MACHINE SUPERVISOR Work Phone: [facility] 12-29-2021 14:46-0400 SaO2% (BldA) [Mass fraction] 99 % Sherri Maldonado APRN.PAPER MACHINE SUPERVISOR Work Phone: [facility] 12-29-2021 14:46-0400 Systolic blood pressure 144 mm[Hg] Sherri Joel BADILLO.PAPER MACHINE SUPERVISOR Work Phone: [facility] Encounters Encounter Date Encounter Type Care Provider Facility Start: 12-11-2024 End: 12-11-2024 ambulatory ROSS BLANDON Facility:[facility] Start: 11-17-2024 End: 11-17-2024 Patient encounter procedure Dontae Rowe MD Work Phone: General Surgery Comment on above: Left inguinal hernia (Primary Dx) Start: 11-17-2024 End: 11-17-2024 ambulatory ROSS BLANDON Facility:[facility] Start: 10-23-2024 End: 10-23-2024 Patient encounter procedure Apolinar Blevins Work Phone: Podiatry Comment on above: Onychomycosis (Prima ry Dx); Pain in toe of right foot; Pain in toe of left foot; Ingrowing toenail Start: 10-23-2024 End: 10-23-2024 ambulatory ROSS BLANDON Facility:[facility] Start: 10-13-2024 End: 10-13-2024 Patient encounter procedure Tran RODRIGUEZ-C Work Phone: Orthopaedics Comment on above: 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 (Primary Dx) Start: 10-13-2024 End: 10-13-2024 [facility] Start: 09-02-2024 End: 09-03-2024 Patient encounter procedure Apolinar Blevins Work Phone: Podiatry Comment on above: Open wound of toe, i nitial encounter (Primary Dx) Start: 09-02-2024 End: 09-03-[facility] Start: 08-20-2024 End: 08-20-2024 Patient encounter procedure Apolinar Blevins Work Phone: Podiatry Comment on above: Ingrowing toenail (P rimary Dx) Start: 08-20-2024 End: 08-20-2024 ambulatory ROSS A BARBER Facility:[facility] Start: 08-18-2024 End: 08-18-2024 Telephone encounter Apolinar Blevins Work Phone: Podiatry Comment on above: Appointment Start: 08-04-2024 End: 08-04-2024 Patient encounter procedure Tran RODRIGUEZ-C Work Phone: Orthopaedics Comment on above: 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 (Primary Dx) Start: 08-04-2024 End: 08-04-2024 ambulatory TRAN YOUNG Facility:[facility] Start: 07-14-2024 End: 07-14-2024 Patient encounter procedure Tran Young PA-C Work Phone: Orthopaedics Comment on above: 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 (Primary Dx); MCP subluxation, sequela Onychomycosis (Prima ry Dx); Pain in toe of right foot; Pain in toe of left foot Start: 07-14-2024 End: 07-14-2024 ambulatory ROSS BLANDON Facility:[facility] Start: 06-11-2024 End: 06-11-2024 ambulatory Tereso Balbuena PT Work Phone: [facility] Comment on above: Balance problem (Marlene bobo Dx); Abnormality of gait Start: 06-09-2024 End: 06-09-2024 ambulatory Irene Todd HUMIDIFIER MAINTENANCE WORKER Work Phone: [facility] Comment on above: Balance problem (Marlene bobo Dx); Abnormality of gait Start: 05-29-2024 End: 05-29-2024 ambulatory TERESO BALBUENA Facility:[facility] Start: 05-27-2024 End: 05-27-2024 ambulatory Irene Todd HUMIDIFIER MAINTENANCE WORKER Work Phone: [facility] Comment on above: Balance problem (Marlene bobo Dx); Abnormality of gait Refill Request Start: 05-26-2024 End: 05-26-2024 Refill Jennifer Kumar APRN.PAPER MACHINE SUPERVISOR Work Phone: [facility] Comment on above: Refill Request Start: 05-22-2024 End: 05-22-2024 ambulatory Tereso Balbuena PT Work Phone: [facility] Comment on above: Balance problem (Marlene bobo Dx); Abnormality of gait Start: 05-20-2024 End: 05-20-2024 ambulatory Irene Todd HUMIDIFIER MAINTENANCE WORKER Work Phone: [facility] Comment on above: Balance problem (Marlene bobo Dx); Abnormality of gait Start: 05-14-2024 End: 05-14-2024 ambulatory Teresotrina Balbuena PT Work Phone: [facility] Comment on above: Balance problem (Marlene bobo Dx); Abnormality of gait Start: 05-07-2024 End: 05-07-2024 ambulatory Teresotrina Balbuena PT Work Phone: [facility] Comment on above: Balance problem (Marlene bobo Dx); Abnormality of gait Start: 05-05-2024 End: 05-05-2024 ambulatory Tereso Balbuena PT Work Phone: [facility] Physical [facility] Comment on above: Balance problem (Marlene bobo Dx); Abnormality of gait Start: 04-28-2024 End: 04-28-2024 Patient encounter procedure Tran Young PA-C Work Phone: Orthopaedics Comment on above: 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 (Primary Dx) Start: 04-28-2024 End: 04-28-2024 ambulatory ROSS BLANDON Facility:[facility] Start: 04-28-2024 End: 04-28-2024 Subsequent hospital visit by physician [facility] Dominique Work Phone: Radiology Comment on above: Right hand pain [M79 .641] Start: 04-24-2024 End: 04-24-2024 Follow-up encounter Ross Blandon MD Work Phone: [facility] Start: 04-22-2024 End: 04-22-2024 ambulatory ROSS BLANDON Facility:[facility] Start: 04-22-2024 End: 04-22-2024 Patient encounter procedure Ross Blandon MD Work Phone: [facility] [place] Comment on above: Medicare annual well ness visit, subsequent (Primary Dx); Essential hypertension; Mixed hyperlipidemia; GERD without esophagitis; Elevated blood sugar; Aortic root dilatation (HCC); Adjustment insomnia; Low serum vitamin B12; Malignant neoplasm of prostate (HCC); Balance problem; Advance directive discussed with patient; Screening for depression; Encounter for screening examination for other mental health and behavioral disorders; Abnormality of gait; Medication management; Need for vaccination; Bilateral impacted cerumen; Left ear pain Start: 04-22-2024 End: 04-22-2024 ambulatory ROSS BLANDON Facility:[facility] Start: 04-16-2024 End: 04-16-2024 Orders Only Romel Queen MD Work Phone: Orthopaedics Comment on above: Right hand pain (Marlene bobo Dx) Start: 04-15-2024 End: 04-15-2024 ambulatory APOLINAR BLEVINS Facility:[facility] Start: 04-15-2024 End: 04-15-2024 Patient encounter procedure Apolinar Blevins Work Phone: Podiatry Comment on above: Onychomycosis (Prima ry Dx); Pain in toe of right foot; Pain in toe of left foot Start: 01-14-2024 End: 01-14-2024 ambulatory APOLINAR BLEVINS Facility:[facility] Start: 01-14-2024 End: 01-14-2024 Patient encounter procedure Apolinar Blevins Work Phone: Podiatry Comment on above: Onychomycosis (Prima ry Dx); Pain in toe of right foot; Pain in toe of left foot Start: 01-04-2024 End: 01-04-2024 Refill Ross Blandon MD Work Phone: [facility] Comment on above: Refill Request Start: 01-02-2024 End: 01-02-2024 Refill Ross Blandon MD Work Phone: [facility] [place] Comment on above: Refill Request Start: 11-27-2023 End: 11-27-2023 Refill Ross Blandon MD Work Phone: [facility] Comment on above: Refill Request Start: 09-25-2023 End: 09-25-2023 Patient encounter procedure Al Mullen PA-C Work Phone: Urology Comment on above: Nocturia (Primary Dx ); Malignant neoplasm of prostate (HCC); Screening for genitourinary condition Start: 09-10-2023 End: 09-10-2023 Patient encounter procedure Apolinar Blevins Work Phone: Podiatry Comment on above: Onychomycosis (Prima ry Dx); Pain in toe of left foot; Pain in toe of right foot Start: 07-26-2023 End: 07-26-2023 Patient encounter procedure Apolinar Blevins Work Phone: Podiatry Comment on above: Open wound of toe, i nitial encounter (Primary Dx) Start: 07-10-2023 Refill Ross pickard MD Work Phone: [facility] [place] Comment on above: Refill Request Start: 07-09-2023 End: 07-09-2023 Patient encounter procedure Apolinar Blevins Work Phone: Podiatry Comment on above: Ingrowing toenail (P rimary Dx) Refill Request ([facility] Managed Refill) Start: 06-14-2023 End: 06-14-2023 Patient encounter procedure Apolinar Blevins Work Phone: Podiatry Comment on above: Onychomycosis (Prima ry Dx); Pain in toe of right foot; Pain in toe of left foot Start: 05-21-2023 Telephone encounter Ross Blandon MD Work Phone: [facility] Comment on above: vaccine question; Re sults Start: 04-20-2023 End: 04-20-2023 Patient encounter procedure Ross Blandon MD Work Phone: [facility] Comment on above: Medicare annual well ness visit, subsequent (Primary Dx); Mixed hyperlipidemia; Essential hypertension; Elevated blood sugar; Aortic root dilatation (HCC); GERD without esophagitis; Malignant neoplasm of prostate (HCC); Low serum vitamin B12; Adjustment insomnia; Advance directive discussed with patient Start: 04-16-2023 End: 04-16-2023 Patient encounter procedure Apolinar Blevins Work Phone: Podiatry Comment on above: Onychomycosis (Prima ry Dx); Pain in toe of right foot Start: 04-11-2023 Telephone encounter Ross Blandon MD Work Phone: [facility] Comment on above: Orders Start: 12-25-2022 Telephone encounter Al robles PA-C Work Phone: Urology Comment on above: Patient Update Start: 12-12-2022 End: 12-12-2022 Patient encounter procedure Al Mullen PA-C Work Phone: Urology Comment on above: Nocturia (Primary Dx ); Stress incontinence, male; Urinary hesitancy; Malignant neoplasm of prostate (HCC) Start: 12-10-2022 Refill Ally Patterson on PA-C Work Phone: [facility] Comment on above: Med Change Request Start: 11-23-2022 End: 11-23-2022 Nursing evaluation of patient and report Mi Nurse Work Phone: [facility] Comment on above: Need for influenza v accination (Primary Dx) Start: 11-15-2022 End: 11-15-2022 Patient encounter procedure Apolinar Blevins Work Phone: Podiatry Comment on above: Onychomycosis (Prima ry Dx); Pain in toe of left foot; Pain in toe of right foot; Diminished pulses in lower extremity Start: 11-10-2022 Refill Ally Patterson on PA-C Work Phone: [facility] Comment on above: Refill Request Start: 11-07-2022 Refill Ross pickard MD Work Phone: [facility] [place] Comment on above: Refill Request Start: 09-18-2022 Telephone encounter Apolinar Loja Work Phone: Podiatry Comment on above: Appointment Start: 05-31-2022 End: 05-31-2022 Patient encounter procedure Apolinar Blevins Work Phone: Podiatry Comment on above: Onychomycosis (Prima ry Dx); Pain in toe of left foot; Pain in toe of right foot; Diminished pulses in lower extremity Start: 04-19-2022 Patient encounter procedure Apolinar Blevins Work Phone: [facility] Work Phone: Start: 04-10-2022 Telephone encounter Ross Blandon MD Work Phone: [facility] Comment on above: requesting fasting l ab orders Start: 04-03-2022 End: 04-03-2022 Patient encounter procedure Apolinar Yepezskylar Work Phone: Podiatry Comment on above: Onychomycosis (Prima ry Dx); Pain in toe of left foot; Pain in toe of right foot; PAD (peripheral artery disease) (HCC); Diminished pulses in lower extremity Start: 02-01-2022 Telephone encounter Ross Blandon MD Work Phone: [facility] Comment on above: Patient Update; Medi cation Request Start: 12-29-2021 End: 12-29-2021 Patient encounter procedure Sherri Maldonado ABY.PAPER MACHINE SUPERVISOR Work Phone: [facility] Comment on above: Dizziness (Primary D x) Start: 12-24-2021 End: 12-24-2021 ambulatory Immunization Clinic Nurse [facility] Work Phone: [facility] Comment on above: Arrived Start: 10-06-2021 Telephone encounter Ross Blandon MD Work Phone: [facility] Comment on above: Results Start: 07-28-2021 Telephone encounter Ross Blandon MD Work Phone: [facility] Comment on above: [facility] r equesting records Start: 07-19-2021 End: 07-19-2021 Nursing evaluation of patient and report Mi Nurse Work Phone: [facility] Comment on above: Need for vaccination (Primary Dx) Start: 04-18-2021 Patient encounter procedure Ross Blandon MD Work Phone: [facility] Work Phone: Start: 07-16-2020 Telephone encounter Ross Blandon MD Work Phone: [facility] Comment on above: Medication issue Procedures Date Procedure Procedure Detail Performing Clinician Start: 10-13-2024 Arthrocentesis aspir &/inj small jt/bursa w/o us Tran Vetovitz PA-C Work Phone: Start: 08-04-2024 Arthrocentesis aspir &/inj small jt/bursa w/o us Tran Vetovitz PA-C Work Phone: Start: 04-28-2024 Arthrocentesis aspir &/inj small jt/bursa w/o us Tran Vetovitz PA-C Work Phone: Start: 04-22-2024 Adult depression scr eening assessment Ross Blandon MD Work Phone: Start: 09-25-2023 Urnls dip stick/tabl et rgnt auto w/o microscopy Al Mullen PA-C Work Phone: Start: 11-23-2022 INFLUENZA VACCINE, P RSV FREE, AGE 65+ YR, HIGH DOSE, QUADRIVALENT (FLUZONE HIGH-DOSE) Ally De PA-C Work Phone: Start: 12-24-2021 PFIZER-BIONTECH COVI D-19 BIVALENT BOOSTER VACCINE, AGE 12+ YR Matthew Arriaza DO Work Phone: Start: 12-24-2021 INFLUENZA SEASONAL QUADRIVALENT HIGH DOSE AGE 65+ Matthew Arriaza DO Work Phone: Start: 07-19-2021 PFIZER-BIONTECH COVI D-19 VACCINE, AGE 12+ YR (KELLY TOP) Ross Blandon MD Work Phone: Start: 07-14-2020 Adult depression scr eening assessment Ross Blandon MD Work Phone: Plan of Treatment Date Care Activity Detail Author Start: 04-22-2027 Diabetes Screening Diabetes Screenin g [facility] Start: 04-16-2026 Diabetes Screening Diabetes Screenin g [facility] Start: 04-22-2025 Anxiety Screening Anxiety Screening [facility] Start: 04-22-2025 Depression Screening Depression Scre ening [facility] Start: 04-22-2025 Medicare Annual Wellness Visit Medicare Annual Wellness Visit [facility] Start: 04-22-2025 End: 04-22-2025 Patient encounter procedure [facility] Comment on above: medicare wellness Start: 04-13-2025 DIABETES SCREEN DIABETES SCREEN [facility] Start: 04-13-2025 Diabetes Screening Diabetes Screenin g [facility] Start: 04-05-2025 End: 07-05-2025 CBC W Auto Differential panel - Blood COMPLETE BLOOD COUNT AND DIFFERENTIAL Lab Routine Low serum vitamin B12 Medication management Expected: 04/05/2025, Expires: 07/05/2025 [facility] Comment on above: Expected: 04/05/2025 , Expires: 07/05/2025 Start: 04-05-2025 End: 07-05-2025 Cobalamin (Vitamin B12) [Mass/volume] in Serum or Plasma VITAMIN B12 Lab Routine GERD without esophagitis Low serum vitamin B12 Medication management Expected: 04/05/2025, Expires: 07/05/2025 [facility] Comment on above: Expected: 04/05/2025 , Expires: 07/05/2025 Start: 04-05-2025 End: 07-05-2025 Comprehensive metabolic 2000 panel - Serum or Plasma COMPREHENSIVE METABOLIC PANEL Lab Routine Essential hypertension Mixed hyperlipidemia Elevated blood sugar Expected: 04/05/2025, Expires: 07/05/2025 [facility] Comment on above: Expected: 04/05/2025 , Expires: 07/05/2025 Start: 04-05-2025 End: 07-05-2025 Hemoglobin A1c in Blood HEMOGLOBIN A1C Lab Routine Elevated blood sugar Expected: 04/05/2025, Expires: 07/05/2025 [facility] Comment on above: Expected: 04/05/2025 , Expires: 07/05/2025 Start: 04-05-2025 End: 07-05-2025 LIPID PANEL, NONFASTING LIPID PANEL, NONFASTING Lab Routine Essential hypertension Mixed hyperlipidemia Expected: 04/05/2025, Expires: 07/05/2025 [facility] Comment on above: Expected: 04/05/2025 , Expires: 07/05/2025 Start: 04-05-2025 End: 07-05-2025 Magnesium [Mass/volume] in Serum or Plasma MAGNESIUM Lab Routine GERD without esophagitis Medication management Expected: 04/05/2025, Expires: 07/05/2025 [facility] Comment on above: Expected: 04/05/2025 , Expires: 07/05/2025 Start: 04-05-2025 End: 07-05-2025 Urinalysis complete panel - Urine URINALYSIS, WITH MICROSCOPIC Lab Routine Essential hypertension Mixed hyperlipidemia Expected: 04/05/2025, Expires: 07/05/2025 [facility] Comment on above: Expected: 04/05/2025 , Expires: 07/05/2025 Start: 03-20-2025 Urine microalbumin profile [facility] Start: 01-23-2025 End: 01-23-2025 Patient encounter procedure 01/23/2025 10:15 AM EST Office Visit Podiatry [address] [place] [address] Apolinar Blevins [address] [place] [address] 3 month follow up nail care Podiatry Comment on above: 3 month follow up na il care Start: 01-19-2025 End: 01-19-2025 Patient encounter procedure 01/19/2025 10:30 AM EST Office Visit Orthopaedics [address] [place] [address] Tran Young PA-C [address] [place] [address] Right thumb - wants injection Orthopaedics Comment on above: Right thumb - wants injection Start: 11-03-2024 Influenza vaccination Influenza Vacc ine (#1) [facility] Start: 10-23-2024 End: 10-23-2024 Patient encounter procedure 10/23/2024 10:15 AM EDT Office Visit Podiatry [address] [place] [address] Apolinar Blevins [address] [place] [address] 3 month follow up nail care Podiatry Comment on above: 3 month follow up na il care Start: 10-13-2024 End: 10-13-2024 Patient encounter procedure Podiatry Comment on above: 3 month follow up na il care Right thumb - wants injection Start: 09-02-2024 End: 09-02-2024 Patient encounter procedure 09/02/2024 2:45 PM EDT Office Visit Podiatry [address] [place] [address] Apolinar Blevins [address] [place] [address] 2 week follow up procedure Podiatry Comment on above: 2 week follow up pro cedure Start: 08-20-2024 End: 08-20-2024 Patient encounter procedure 08/20/2024 9:15 AM EDT Office Visit Podiatry [address] [address] Apolinar Blevins [address] [facility] [place] [address] ingrown toenail Podiatry Comment on above: ingrown toenail Start: 08-04-2024 End: 08-04-2024 Patient encounter procedure 08/04/2024 10:00 AM EDT Office Visit Orthopaedics [address] [place], [place] [id number] Tran Young PA-C [address] [place] [address] R hand pain had surgery previously by [facility] Comment on above: R hand pain had surg malik previously by [facility] Start: 07-14-2024 End: 07-14-2024 Patient encounter procedure Podiatry Comment on above: 3 month follow up jaymie ms rabia R hand pain had surg malik previously by [facility] Start: 06-11-2024 End: 06-11-2024 ambulatory 06/11/2024 9:15 AM EDT OT/PT/Speech Visit [facility] [address] [facility] [place] [address] Tereso Balbuena, PT [address] [place], [place] [id number] R26.89 (ICD-10-CM) - Balance problem [facility] Comment on above: R26.89 (ICD-10-CM) - Balance problem Start: 06-09-2024 End: 06-09-2024 ambulatory 06/09/2024 9:30 AM EDT OT/PT/Speech Visit [facility] [address] [place] [address] Porsha Toddh, HUMIDIFIER MAINTENANCE WORKER [address] [place] [address] R26.89 (ICD-10-CM) - Balance problem [facility] Comment on above: R26.89 (ICD-10-CM) - Balance problem Start: 06-05-2024 End: 06-05-2024 ambulatory 06/05/2024 3:00 PM EDT OT/PT/Speech Visit [facility] [address] [place] [address] Tereso Balbuena, PT [address] [facility] [place] [address] R26.89 (ICD-10-CM) - Balance problem [facility] Comment on above: R26.89 (ICD-10-CM) - Balance problem Start: 06-03-2024 End: 06-03-2024 ambulatory 06/03/2024 9:30 AM EDT OT/PT/Speech Visit [facility] [address] [place] [address] Marioeastonanglea Irene, HUMIDIFIER MAINTENANCE WORKER [address] [place] [address] R26.89 (ICD-10-CM) - Balance problem [facility] Comment on above: R26.89 (ICD-10-CM) - Balance problem Start: 05-29-2024 End: 05-29-2024 ambulatory 05/29/2024 10:45 AM EDT OT/PT/Speech Visit [facility] [address] [place] [address] Tereso Balbuena, PT [address] [facility] [place] [address] R26.89 (ICD-10-CM) - Balance problem [facility] Comment on above: R26.89 (ICD-10-CM) - Balance problem Start: 05-27-2024 End: 05-27-2024 ambulatory 05/27/2024 9:30 AM EDT OT/PT/Speech Visit [facility] [address] [place] [address] Irene Todd, HUMIDIFIER MAINTENANCE WORKER [address] [place] [address] R26.89 (ICD-10-CM) - Balance problem [facility] Comment on above: R26.89 (ICD-10-CM) - Balance problem Start: 05-22-2024 End: 05-22-2024 ambulatory 05/22/2024 10:45 AM EDT OT/PT/Speech Visit [facility] [address] [facility] [place] [address] Tereso Balbuena, PT [address] [facility] [place] [address] R26.89 (ICD-10-CM) - Balance problem [facility] Comment on above: R26.89 (ICD-10-CM) - Balance problem Start: 05-20-2024 End: 05-20-2024 ambulatory 05/20/2024 8:45 AM EDT OT/PT/Speech Visit [facility] [address] [place] [address] Irene Todd, HUMIDIFIER MAINTENANCE WORKER [address] [place] [address] R26.89 (ICD-10-CM) - Balance problem [facility] Comment on above: R26.89 (ICD-10-CM) - Balance problem Start: 05-17-2024 Covid-19 Vaccine ( season) Covid-19 Vaccine ( season) [facility] Start: 05-14-2024 End: 05-14-2024 ambulatory 05/14/2024 11:30 AM EDT OT/PT/Speech Visit [facility] [address] [facility] [place] [address] Tereso Balbuena, PT [address] [place] [address] R26.89 (ICD-10-CM) - Balance problem [facility] Comment on above: R26.89 (ICD-10-CM) - Balance problem Start: 05-07-2024 End: 05-07-2024 ambulatory 05/07/2024 7:45 AM EST OT/PT/Speech Visit [facility] [address] [place] [address] Tereso Balbuena, PT [address] [place] [address] R26.89 (ICD-10-CM) - Balance problem [facility] Comment on above: R26.89 (ICD-10-CM) - Balance problem Start: 05-05-2024 End: 05-05-2024 ambulatory 05/05/2024 10:00 AM EST OT/PT/Speech Visit [facility] [address] [place] [address] Tereso Balbuena, PT [address] [place], [place] [id number] Balance problem [R26.89]; Abnormality of gait [R26.9] [facility] Comment on above: Balance problem [R26 .89]; Abnormality of gait [R26.9] Start: 04-28-2024 End: 04-28-2024 Patient encounter procedure 04/28/2024 10:30 AM EST Office Visit Orthopaedics [address] [place] [address] Tran Young PA-C [address] [place] [address] R hand pain had surgery previously by [facility] Comment on above: R hand pain had surg malik previously by [facility] Start: 04-22-2024 End: 07-22-2024 CBC W Auto Differential panel - Blood [facility] Comment on above: Expected: 04/22/2024 , Expires: 07/22/2024 Start: 04-22-2024 End: 07-22-2024 Cobalamin (Vitamin B12) [Mass/volume] in Serum or Plasma [facility] Work Phone: Comment on above: Expected: 04/22/2024 , Expires: 07/22/2024 Start: 04-22-2024 End: 07-22-2024 Comprehensive metabolic 2000 panel - Serum or Plasma [facility] Comment on above: Expected: 04/22/2024 , Expires: 07/22/2024 Start: 04-22-2024 End: 07-22-2024 Hemoglobin A1c in Blood [facility] Comment on above: Expected: 04/22/2024 , Expires: 07/22/2024 Start: 04-22-2024 End: 07-22-2024 LIPID PANEL, NONFASTING [facility] Comment on above: Expected: 04/22/2024 , Expires: 07/22/2024 Start: 04-22-2024 End: 07-22-2024 Magnesium [Mass/volume] in Serum or Plasma [facility] Comment on above: Expected: 04/22/2024 , Expires: 07/22/2024 Start: 04-22-2024 End: 07-22-2024 Urinalysis complete panel - Urine [facility] Comment on above: Expected: 04/22/2024 , Expires: 07/22/2024 Start: 04-22-2024 End: 04-22-2024 Patient encounter procedure 04/22/2024 10:40 AM EST Office Visit [facility] [place] [address] [place] [address] Ross Blandon MD [address] [place] [address] Medicare wellness [facility] Comment on above: Medicare wellness Start: 04-20-2024 RSV Vaccine (1 - 1-d ose 60+ series) RSV Vaccine (1 - 1-dose 60+ series) [facility] Comment on above: Postponed from 10/09 (Insurance Coverage) Start: 04-15-2024 End: 04-15-2024 Patient encounter procedure 04/15/2024 9:15 AM EST Office Visit Podiatry [address] [place] [address] Apolinar Blevins [address] [place] [address] 3mth follow up Podiatry Comment on above: 3mth follow up Start: 03-11-2024 End: 03-11-2024 Patient encounter procedure 03/11/2024 9:30 AM EST Office Visit Urology [address] [place] [address] Al Mullen PA-C [address] [place], [place] [id number] 1 year follow up Urology Comment on above: 1 year follow up Start: 03-09-2024 DIABETES SCREEN DIABETES SCREEN [facility] Start: 03-05-2024 Advance Directive Discussion Advance Directive Discussion [facility] Start: 01-14-2024 End: 01-14-2024 Patient encounter procedure 01/14/2024 9:15 AM EST Office Visit Podiatry [address] [place] [address] Apolinar Blevins [address] [place] [address] 3 month follow up nail care Podiatry Comment on above: 3 month follow up na il care Start: 12-13-2023 End: 12-13-2023 Patient encounter procedure 12/13/2023 9:00 AM EDT Office Visit Podiatry [address] [place] [address] Apolinar Blevins [address] [place] [address] 3 month follow up nail care Podiatry Comment on above: 3 month follow up na il care Start: 11-04-2023 Covid-19 Vaccine ( season) Covid-19 Vaccine () [facility] Start: 11-04-2023 Influenza vaccination Influenza Vacc ine (#1) [facility] Start: 09-10-2023 End: 09-10-2023 Patient encounter procedure 09/10/2023 8:15 AM EDT Office Visit Podiatry [address] [place] [address] Apolinar Blevins [address] [facility] [place] [address] 3 mth nail care Podiatry Comment on above: 3 mth nail care Start: 07-26-2023 End: 07-26-2023 Patient encounter procedure 07/26/2023 9:45 AM EDT Office Visit Podiatry [address] [place] [address] Apolinar Blevins [address] [facility] [place] [place] [address] 2 week follow up R great toe Podiatry Comment on above: 2 week follow up R g reat toe Start: 04-10-2023 Covid-19 Vaccine (6 - Moderna series) Covid-19 Vaccine (6 - Moderna series) [facility] Start: 04-10-2023 Covid-19 Vaccine () Covid-19 Vaccine () [facility] Start: 03-05-2023 Advance Directive Discussion Advance Directive Discussion [facility] Start: 03-05-2023 Behavioral Health Screening Behavioral Health Screening [facility] Start: 03-05-2023 Depression Assessment Depression Ass essment [facility] Start: 11-03-2022 Influenza vaccination C [facility] Start: 04-26-2022 COVID-19 VACCINE (6 - Moderna series) COVID-19 VACCINE (6 - Moderna series) [facility] Start: 04-18-2022 ANNUAL PCP TEAM GRAIN ELEVATOR MOTOR STARTER SHELLIE DISEASE VISIT ANNUAL PCP TEAM CHRONIC DISEASE VISIT [facility] Start: 04-18-2022 BP CONTROLLED (<130/80) BP CONTROLLE D (<130/80) [facility] Start: 04-10-2022 End: 06-10-2022 Cobalamin (Vitamin B12) [Mass/volume] in Serum or Plasma VITAMIN B12 BLOOD Lab Routine GERD without esophagitis Medication management Expected: 04/10/2022, Expires: 06/10/2022 [facility] Work Phone: Comment on above: Expected: 04/10/2022 , Expires: 06/10/2022 Start: 04-10-2022 End: 06-10-2022 Comprehensive metabolic 2000 panel - Serum or Plasma COMP METABOLIC PANEL Lab Routine Essential hypertension Mixed hyperlipidemia Expected: 04/10/2022, Expires: 06/10/2022 [facility] Work Phone: Comment on above: Expected: 04/10/2022 , Expires: 06/10/2022 Start: 04-10-2022 End: 06-10-2022 LIPID PANEL, NONFASTING LIPID PANEL, NONFASTING Lab Routine Essential hypertension Mixed hyperlipidemia Expected: 04/10/2022, Expires: 06/10/2022 [facility] Work Phone: Comment on above: Expected: 04/10/2022 , Expires: 06/10/2022 Start: 04-10-2022 End: 06-10-2022 Magnesium [Mass/volume] in Serum or Plasma MAGNESIUM BLD Lab Routine GERD without esophagitis Medication management Expected: 04/10/2022, Expires: 06/10/2022 [facility] Work Phone: Comment on above: Expected: 04/10/2022 , Expires: 06/10/2022 Start: 04-10-2022 End: 06-10-2022 Prostate specific Ag [Mass/volume] in Serum or Plasma PSA/PROSTSPECAG DIAG Lab Routine Malignant neoplasm of prostate (HCC) Expected: 04/10/2022, Expires: 06/10/2022 [facility] Work Phone: Comment on above: Expected: 04/10/2022 , Expires: 06/10/2022 Start: 04-10-2022 End: 06-10-2022 Urinalysis complete panel - Urine URINALYSIS, WITH MICROSCOPIC Lab Routine Essential hypertension Mixed hyperlipidemia Expected: 04/10/2022, Expires: 06/10/2022 [facility] Work Phone: Comment on above: Expected: 04/10/2022 , Expires: 06/10/2022 Start: 03-05-2022 ADVANCE DIRECTIVE DISCUSSION ADVANCE DIRECTIVE DISCUSSION [facility] Start: 03-05-2022 DEPRESSION ASSESSMENT DEPRESSION ASS ESSMENT [facility] Start: 11-03-2021 Influenza vaccination INFLUENZA (#1) [facility] Start: 07-14-2021 Adult depression screening assessment DEPRESSION SCREENING [facility] Start: 03-05-2021 ADVANCE DIRECTIVE DISCUSSION ADVANCE DIRECTIVE DISCUSSION [facility] Start: 03-05-2021 DEPRESSION ASSESSMENT [facility] Start: 2000 RSV Vaccine (1 - 1-d ose 60+ series) RSV Vaccine (1 - 1-dose 60+ series) [facility] Start: 1958 Anxiety Screening Anxiety Screening [facility] Start: 1958 Depression Screening Depression Scre ening [facility] POST VOID RESIDUAL POST VOID RES IDUAL Procedures Routine Urinary hesitancy Nocturia Ordered: 12/12/2022 [facility] Work Phone: Comment on above: Ordered: 12/12/2022 POST VOID RESIDUAL POST VOID RES IDUAL Procedures Routine Nocturia Malignant neoplasm of prostate (HCC) Screening for genitourinary condition Ordered: 09/25/2023 [facility] Work Phone: Comment on above: Ordered: 09/25/2023 End: 04-03-2023 PVR ANK PRESS [facility] Vascular Lab Routine Onychomycosis Diminished pulses in lower extremity 1 Occurrences starting 04/03/2022 until 04/03/2023 [facility] Work Phone: Comment on above: 1 Occurrences starti ng 04/03/2022 until 04/03/2023 Removal impacted cerumen irrigation/lvg unilat AMBULATORY EAR LAVAGE/IRRIGATION Procedures Routine Bilateral impacted cerumen Ordered: 04/22/2024 [facility] Comment on above: Ordered: 04/22/2024 Rpr 1st ingun hrna a ge 5 yrs/> reducible HERNIORRHAPHY INGUINAL INITIAL HERNIA >5 YRS REDUCIBLE (ELECTIVE) Left inguinal hernia [facility] OR End: 05-16-2025 XR Hand - right PA and Lateral and Oblique XR HAND GENERAL 3V PA/LAT/OBL RIGHT Radiology Routine Right hand pain 1 Occurrences starting 04/16/2024 until 05/16/2025 [facility] Work Phone: Comment on above: 1 Occurrences starti ng 04/16/2024 until 05/16/2025 XR Hand - right PA a nd Lateral and Oblique XR HAND GENERAL 3V PA/LAT/OBL RIGHT Radiology Routine Right hand pain 04/28/2024 10:32 AM EST [facility] Work Phone: [facility] Immunizations Immunization Date Immunization Notes Care Provider [facility] 02-29-2024 respiratory syncytia l virus (RSV) vaccine, adjuvanted (AREXVY) Ross Blandon MD Work Phone: [facility] 11-18-2023 influenza, high dose seasonal, preservative-free Ross Blandon MD Work Phone: [facility] 11-18-2023 influenza virus vaccine, unspecified formulation Apolinar Blevins Work Phone: [facility] 12-08-2022 COVID-19 vaccine, ag e 12+ yr, season (PFIZER-BIONTInspivia) Ally De PA-C Work Phone: [facility] 11-23-2022 influenza (HD-IIV4) vaccine, age 65+ yr, high dose, quadrivalent, PF (FLUZONE HIGH-DOSE) Mi Nurse Work Phone: [facility] Work Phone: 11-23-2022 influenza virus vaccine, unspecified formulation Apolinar Blevins Work Phone: [facility] 12-24-2021 COVID-19 booster vaccine, age 12+ yr, bivalent (PFIZER-BIONTECH) Immunization Randolph Work Phone: [facility] Work Phone: 12-24-2021 influenza, high-dose , quadrivalent vaccine (FLUZONE HIGH DOSE QUADRIVALENT) Immunization Randolph Work Phone: [facility] Work Phone: 12-24-2021 influenza virus vaccine, unspecified formulation Apolinarbeau Jordan Work Phone: [facility] 07-19-2021 COVID-19 vaccine, ag e 12+ yr (PFIZER-BIONTECH - KELLY TOP) Ca Nurse Work Phone: [facility] Work Phone: 04-19-2021 pneumococcal polysaccharide vaccine, 23 valent Ca Nurse Work Phone: [facility] 12-27-2020 COVID-19 vaccine, fu ll dose (MODERNA) Ca Nurse Work Phone: [facility] 12-25-2020 influenza, high-dose , quadrivalent vaccine (FLUZONE HIGH DOSE QUADRIVALENT) Ca Nurse Work Phone: [facility] Work Phone: 05-12-2020 COVID-19 vaccine, fu ll dose (MODERNA) Ross Blandon MD Work Phone: [facility] Work Phone: 04-15-2020 COVID-19 vaccine, fu ll dose (MODERNA) Ross Blandon MD Work Phone: [facility] Work Phone: 11-12-2019 influenza, high-dose , quadrivalent vaccine (FLUZONE HIGH DOSE QUADRIVALENT) Ross Blandon MD Work Phone: [facility] 02-19-2019 zoster vaccine recombinant Ross Blandon MD Work Phone: [facility] 12-30-2018 influenza, high dose seasonal, preservative-free Ross Blandon MD Work Phone: [facility] Work Phone: 10-22-2018 zoster vaccine recombinant Ross Blandon MD Work Phone: [facility] 12-27-2017 zoster vaccine recombinant Ally De PA-C Work Phone: [facility] 12-21-2017 influenza, high dose seasonal, preservative-free Ross Blandon MD Work Phone: [facility] Work Phone: 08-10-2017 zoster vaccine recombinant Ally De PA-C Work Phone: [facility] 01-09-2017 influenza, high dose seasonal, preservative-free Ross Blandon MD Work Phone: [facility] Work Phone: 12-08-2015 influenza, high dose seasonal, preservative-free Ross Blandon MD Work Phone: [facility] Work Phone: 03-20-2015 pneumococcal conjuga te vaccine, 13 valent Ross Blandon MD Work Phone: [facility] 03-20-2015 tetanus and diphther ia toxoids, adsorbed, preservative free, for adult use (5 Lf of tetanus toxoid and 2 Lf of diphtheria toxoid) Ross Blandon MD Work Phone: [facility] 03-20-2015 tetanus toxoid, redu shanthi diphtheria toxoid, and acellular pertussis vaccine, adsorbed Ally De PA-C Work Phone: [facility] 01-16-2015 influenza, high dose seasonal, preservative-free Ross Blandon MD Work Phone: [facility] Work Phone: 12-26-2013 influenza, seasonal, injectable Ross Blandon MD Work Phone: [facility] 12-20-2012 influenza virus vaccine, unspecified formulation Ross Blandon MD Work Phone: [facility] Work Phone: 12-28-2011 influenza virus vaccine, unspecified formulation Ross Blandon MD Work Phone: [facility] 01-16-2011 pneumococcal polysaccharide vaccine, 23 valent Ross Blandon MD Work Phone: [facility] 01-16-2011 zoster vaccine, live Ross Blandon MD Work Phone: [facility] 12-01-2010 influenza virus vaccine, unspecified formulation Ross Blandon MD Work Phone: [facility] 12-27-2009 influenza virus vaccine, unspecified formulation Ross Blandon MD Work Phone: [facility] 12-29-2008 influenza virus vaccine, unspecified formulation Ross Blandon MD Work Phone: [facility] 12-30-2007 influenza virus vaccine, unspecified formulation Ross Blandon MD Work Phone: [facility] 01-22-2007 influenza virus vaccine, unspecified formulation Ross Blandon MD Work Phone: [facility] 01-10-2006 influenza virus vaccine, unspecified formulation Ross Blandon MD Work Phone: [facility] 03-09-2005 diphtheria and tetan us toxoids, adsorbed for pediatric use Ross Blandon MD Work Phone: [facility] Work Phone: Payers Date Payer Category Payer Private Health Insurance EHP AET NA EHP RETIREE OVER 65 / EHP CC Retiree Over 65 [id number] 2021-Present [address] [place] [address] EPO [id number] 2021 Private Health Insurance [id number] 2021 Unknown [id number] 2015 Unknown P S ZZZEHRosa S TAFF RETIREE 65 OVER / EHP CC Staff Retired 65+ [id number] 2015-2021 [address] [address] [place] [address] [facility] [id number] 2005 Medicare MEDICARE MEDICAR E A AND B [id number] 2005-Present [phone] [address] [address] [place] [address] Medicare [id number] 2005 Medicare [id number] 2005 Medicare [id number] Social History Date Type Detail Facility Start: 10-04-2016 End: 12-29-2021 Tobacco smoking status NHIS Ex-smoker [facility] End: 10-04-2006 History of tobacco use Current smoker [facility] End: 10-04-2006 History of tobacco use Pipe Smoker [facility] Start: 07-14-2020 End: 11-12-2024 Alcohol intake Current drinker of alcohol (finding) [facility] Start: 07-14-2020 End: 08-14-2022 Alcohol intake [facility] Start: 11-06-2019 End: 04-18-2022 History SDOH Alcohol Frequency 5 [facility] Start: 11-06-2019 End: 04-18-2022 History SDOH Alcohol Std Drinks 1 [facility] Start: 11-06-2019 End: 04-18-2022 History SDOH Physical Activity DPW 2 [facility] Start: 11-06-2019 End: 04-18-2022 History SDOH Physical Activity MPS 3 [facility] Start: 11-06-2019 Education 19 [facility] Start: 1940 Sex Assigned At Not on file C [facility] Start: 03-19-2021 End: 01-30-2022 Exposure to SARS-CoV-2 (event) Not sure [facility] Start: 10-04-2016 End: 12-29-2021 Tobacco use and exposure Smokeless tobacco non-user [facility] Work Phone: Start: 12-29-2021 Tobacco Comment Pt quit smoking pipe . [facility] Start: 04-18-2022 End: 08-14-2022 Social connection and isolation panel [facility] Do you belong to any clubs or organizations such as roman catholic groups, unions, [employer] or athletic groups, or school groups? Yes [facility] Are you now , , , , never or living with a partner? [facility] How often to you hav e a drink containing alcohol? 4 or more times a week [facility] How many standard dr inks containing alcohol do you have on a typical day? 1 or 2 [facility] How often do you hav e 6 or more drinks on 1 occasion? Never [facility] Start: 02-04-2012 Adult Depression Scr eening Assessment 0 [facility] Work Phone: Do you feel stress - tense, restless, nervous, or anxious, or unable to sleep at night because your mind is troubled all the time - these days [OSQ] Only a little [facility] (I/We) worried wheth er (my/our) food would run out before (I/we) got money to buy more. Never true [facility] In the past 12 month s, was there a time when you were not able to pay the mortgage or rent on time? No [facility] Medical Equipment Procedure Code Equipment Code Equipment Origin al Text Equipment Identifier Dates Cement Simplex P Bone Radiopaque Full Dose Sterile - [id number] Start: 10-30-2016 Comment on above: Description: SIMPLEX P BONE CEMENT Component Triathlon 5 Femoral Cruciate Retain Cemented Knee Right - [id number] Start: 10-30-2016 Comment on above: Description: TRIATHL ON CRUCIATE RETAINING FEMORAL Insert Triathlon 5 X3 11mm Tibial Cruciate Retaining Knee - [id number] Start: 10-30-2016 Component Triathlon 38mm X3 11mm Patellar Asymmetric Knee - [id number] Start: 10-30-2016 Comment on above: Description: TRIATHL ON x3 ASYMMETRIC PATELLA Mesh Sft Preshpd 6x13.7cm - [id number] Start: 12-08-2014 Baseplate Triathlon 5 Tibial Primary Cement Knee - [id number] Start: 10-30-2016 Comment on above: Description: TRIATHL ON PRIMARY TIBIAL BASEPLATE Functional Status Date Assessment Result Facility 04-22-2024 Total score [AUDIT-C] 4 04/22/19 25 10:39 AM Vera Hall MA [facility] 04-21-2019 Are you deaf, or do you have serious difficulty hearing No 04/21/2019 8:22 PM Ronal De La Cruz III, MD No [facility] 04-21-2019 Are you blind, or do you have serious difficulty seeing, even when wearing glasses No 04/21/2019 8:22 PM Ronal De La Cruz III, MD No [facility] 04-21-2019 Do you have serious difficulty walking or climbing stairs No 04/21/2019 8:22 PM Ronal De La Cruz III, MD No [facility] 04-21-2019 Do you have difficul ty dressing or bathing No 04/21/2019 8:22 PM Ronal De La Cruz III, MD [facility] 04-21-2019 Because of a physica l, mental, or emotional condition, do you have difficulty doing errands alone such as visiting a physician's office or shopping No 04/21/2019 8:22 PM Ronal De La Cruz III, MD No [facility] Mental Status Date Assessment Result Facility 04-21-2019 Because of a physica l, mental, or emotional condition, do you have serious difficulty concentrating, remembering, or making decisions No 04/21/2019 8:22 PM Ronal De La Cruz III, MD No [facility] Clinical Notes 07-16-2020 to 11-17-2024 Nadeem Mann - 11/17/2024 1:32 PM Dontae Hsieh MD - 11/17/2024 1:21 PM Apolinar Keys - 10/23/2024 10:38 AM Nita Dennison RN - 10/23/2024 10:18 AM EDTPatient Instructions Note Date & Type Note Facility 11-17-2024 Note HNO ID: [id number] Author: ?, ?, ? Service: ? Author Type: ? Type: Progress Notes Filed: 11/17/2024 13:33 Note Text: REVIEW OF SYSTEMS: General: The patient denies fatigue, denies weight loss, denies weight gain, denies feeling hot, and denies feelings of cold. Eyes: The patient denies glaucoma, denies eye injury/surgery, does not wear glasses or contacts. Ear/Nose/Throat: The patient denies allergies, denies hayfever, denies ear infections, and denies bloody noses. Cardiovascular: The patient denies chest pain, denies heart disease, denies high blood pressure,denies cardiac stent, denies prior heart attack, denies irregular heart beat, denies high cholesterol, denies poor circulation, denies heart failure, other cardiac issues, denies claudication, denies cold feet, denies peripheral arterial stent. Respiratory: The patient denies tuberculosis, denies pneumonia, denies frequent cough, denies pulmonary embolism, denies shortness of breath, and denies coughing up blood. Gastrointestinal: The patient denies difficulty swallowing, NOTES acid reflux, denies ulcers, denies vomiting, denies jaundice/hepatitis, denies gallbladder problems, denies black or tarry stools, denies hemorrhoids, denies bleeding from rectum, denies diverticulitis, denies constipation, denies diarrhea, denies loss of stool control, and denies hernias. Kidney/Bladder: The patient denies kidney stones, denies urine infections, and denies bloody urine. Skin: The patient denies a history of skin cancer, denies bleeding/changing moles, and denies a history of skin rash. Neurologic: The patient denies a history of epilepsy/convulsions, denies headaches, denies head/spinal injuries, and denies stroke/TIA. Psychiatric: The patient denies psychiatric medications, denies depression, and denies voices, denies substance abuse. Endocrine: The patient denies thyroid disorders, denies diabetes, and denies hormonal problems. Hematologic: The patient denies a history of bruising, denies bleeding, and denies anemia, denies blood clots. Infections: The patient denies a history of measles and mumps, denies rheumatic fever, and denies sexually transmitted diseases. Musculoskeletal: The patient denies back pain/injury, denies back problems, denies sciatica, denies knee/foot trouble, denies arthritis, or denies gout. When was patient's last Mammogram screening? N/A Last Colonoscopy: 2020 Nadeem Mann [facility] 11-17-2024 History of Present illness Narrative REVIEW OF SYSTEMS: General: The patient denies fatigue, denies weight loss, denies weight gain, denies feeling hot, and denies feelings of cold. Eyes: The patient denies glaucoma, denies eye injury/surgery, does not wear glasses or contacts. Ear/Nose/Throat: The patient denies allergies, denies hayfever, denies ear infections, and denies bloody noses. Cardiovascular: The patient denies chest pain, denies heart disease, denies high blood pressure,denies cardiac stent, denies prior heart attack, denies irregular heart beat, denies high cholesterol, denies poor circulation, denies heart failure, other cardiac issues, denies claudication, denies cold feet, denies peripheral arterial stent. Respiratory: The patient denies tuberculosis, denies pneumonia, denies frequent cough, denies pulmonary embolism, denies shortness of breath, and denies coughing up blood. Gastrointestinal: The patient denies difficulty swallowing, NOTES acid reflux, denies ulcers, denies vomiting, denies jaundice/hepatitis, denies gallbladder problems, denies black or tarry stools, denies hemorrhoids, denies bleeding from rectum, denies diverticulitis, denies constipation, denies diarrhea, denies loss of stool control, and denies hernias. Kidney/Bladder: The patient denies kidney stones, denies urine infections, and denies bloody urine. Skin: The patient denies a history of skin cancer, denies bleeding/changing moles, and denies a history of skin rash. Neurologic: The patient denies a history of epilepsy/convulsions, denies headaches, denies head/spinal injuries, and denies stroke/TIA. Psychiatric: The patient denies psychiatric medications, denies depression, and denies voices, denies substance abuse. Endocrine: The patient denies thyroid disorders, denies diabetes, and denies hormonal problems. Hematologic: The patient denies a history of bruising, denies bleeding, and denies anemia, denies blood clots. Infections: The patient denies a history of measles and mumps, denies rheumatic fever, and denies sexually transmitted diseases. Musculoskeletal: The patient denies back pain/injury, denies back problems, denies sciatica, denies knee/foot trouble, denies arthritis, or denies gout. When was patient's last Mammogram screening? N/A Last Colonoscopy: 2020 Nadeem Mann HISTORY AND PHYSICAL Andrew Mari Karmen BORJAS 1940 REFERRING PHYSICIAN: No ref. provider found CHIEF COMPLAINT: Inguinal Hernia (Lt side Inguinal hernia) HPI: Andrew Peraza is an 84-year-old male, with a history of left first carpal bone arthritis and a left inguinal hernia, presenting for evaluation of hernia repair. Andrwe reports a left inguinal hernia that he noticed was bulky and reducible without pain or tenderness. He recalls a previous right inguinal hernia repair performed [address] Rivero, who mentioned encountering some difficulty with the incision scar. Andrew has a history of radical prostatectomy. He also reports significant weight loss, having reduced his weight from 350 lbs to 255 lbs. He denies undergoing bariatric surgery but has had a total knee and partial knee replacement. 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 He is considering surgical options for this condition. PAST MEDICAL HISTORY Diagnosis Date Adjustment insomnia Advance directive discussed with patient 04/19/2022 Discussed 04/2022: up to date Aortic root dilatation 04/18/2021 Arthritis of knee 08/02/2016 DDD (degenerative disc disease), cervical 04/18/2021 May need prn prednisone. DDD (degenerative disc disease), lumbar 03/15/2017 Diverticulosis of colon (without mention of hemorrhage) Diverticulosis of large intestine without hemorrhage 03/21/2018 Added automatically from request for surgery [id number] Elevated blood sugar 04/19/2022 Essential hypertension 01/22/2007 03/11/2019: Home BP Cuff Validated. 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 Personal history of malignant melanoma of skin 06/21/2010 Situational depression 11/24/2016 Status post total knee replacement, right 12/07/2016 Tubular adenoma of colon 03/14/20172014--tubular adenoma in mid transverse colon and rectum Urinary hesitancy 12/08/2022 PAST SURGICAL HISTORY Procedure Laterality Date ABDOMINAL SURGERY HX ARTHRP KNE CONDYLE&PLATU MEDIAL&LAT COMPARTMENTS Right 10/30/2016 Knee replacement, total COLONOSCOPY FLX DX W/COLLJ SPEC WHEN PFRMD 05/14/2014 Colonoscopy COLONOSCOPY FLX DX W/COLLJ SPEC WHEN PFRMD 04/29/2018 Colonoscopy COLONOSCOPY FLX DX W/COLLJ SPEC WHEN PFRMD 09/16/2020 COLONOSCOPY W/BIOPSY SINGLE/MULTIPLE 04/29/2010 DESTRUCTION, 1ST LESION 06/19/2012 Amputation/cauterization right medial malleolus EGD ESOPHAGOGASTRODUODENOSCOPY TRANSORAL DIAGNOSTIC 04/29/2018 EGD EYE SURGERY HX HERNIA REPAIR HX JOINT REPLACEMENT HX KNEE ARTHROSCOPY Right 2004 LAPS PROSTECT RETROPUBIC RAD W/NRV SPARING ROBOT 1996 NEUROPLASTY &/TRANSPOS MEDIAN NRV CARPAL TUNNE Right 09/18/2019 Right carpal tunnel release RPR 1ST INGUN HRNA AGE 5 YRS/> REDUCIBLE Right 12/08/2014 [place] SHOULDER ARTHROSCOPY/SURGERY Right 1988 SHOULDER ARTHROSCOPY/SURGERY Left 1989 SKIN BIOPSY HX TONSILLECTOMY AND ADENOIDECTOMY HX 194 Current Outpatient Medications Medication Sig lisinopril (ZESTRIL) 20 mg tablet Take 1 tablet by mouth once daily. omeprazole (PRILOSEC) 20 mg capsule Take 1 capsule by mouth once daily on an empty stomach. metoprolol succinate ER (TOPROL XL) 50 mg 24 hr tablet Take 1 tablet by mouth once daily. cyanocobalamin (VITAMIN B-12) 100 mcg tab Take 100 mcg by mouth once daily. aspirin, enteric coated (ASPIRIN, ENTERIC COATED) 81 mg EC tablet Take 81 mg by mouth once daily. Take one tablet daily fluticasone (FLONASE ALLERGY RELIEF) 50 mcg/actuation nasal spray Use 2 Sprays in each nostril once daily. (Patient not taking: Reported on 07/14/2024) No current facility-administered medications for this visit. ALLERGIES: Penicillin G and Zoloft [Sertraline Hcl] PERSONAL HISTORY: SOCIAL HISTORY[1] FAMILY HISTORY: FAMILY HISTORY Problem Relation Age of Onset Hypertension Mother Heart Attack Mother other (diverticulitis) Father Sudden Cardiac Father Prostate Cancer Brother REVIEW OF SYMPTOMS: The review of systems data was entered by the nurse and reviewed by me Constitutional: (+) weight loss Eyes: (-) vision loss Genitourinary: (+) left groin bulge, (-) groin pain, (-) groin tenderness There are no exam notes on file for this visit. PHYSICAL EXAMINATION: General: The patient is 84 year old male, well nourished, well hydrated in no acute distress. The patient is oriented to time, place, and person. VITALS: Blood pressure 133/71, pulse 68, resp. rate 16, weight 74.9 kg (165 lb 1.6 oz). Body mass index is 27.06 kg/m . HEENT: Normal cephalic, ataumatic, pupils are equally round, sclera are anicteric, mucous membranes are moist, oropharynx is clear. Neck has no masses, asymmetry or lymphadenopathy. Thyroid is unremarkable. Respiratory: Clear to auscultation and percussion. Normal respiratory excursion and pattern. Cardiac: Examination is regular rate and rhythm. Abdominal exam: Soft, nontender, with no palpable masses. No hepatosplenomegaly. A moderate reducible left inguinal hernia, no right inguinal or umbilical hernias are noted Rectal exam: exam deferred Extremities: no clubbing, cyanosis or edema. No adenopathy. Other: LABORATORY VALUES: As Noted RADIOLOGIC STUDIES: As Noted Assessment IMPRESSION: left inguinal hernia PLAN: My plan is to perform a open left inguinal hernia repair with mesh. The planned surgical procedure was discussed extensively with the patient. The risks, benefits, anticipated outcomes and possible complications were mentioned. [facility] has a chance of recurrence and/or chronic post operative pain. My staff has also explained the procedure in understandable terms and the patient was given the option to take printed material concerning the planned procedure. The patient had the opportunity to ask questions concerning the planned procedure. The patient freely consents to the planned procedure. 1. Left inguinal hernia (K40.90) Reducible left inguinal hernia; history of right inguinal hernia repair 10 years ago. Prior radical prostatectomy precludes laparoscopic approach. - Proceed with open Peyman repair with mesh. - Discussed surgical plan, including use of Exparel for long-acting local anesthesia to minimize postoperative pain. - Reviewed expected recovery: anticipate 1 week of limited activity, with gradual return to normal activities and driving as tolerated after the first week. - Advised to avoid driving and strenuous activity for at least 1 week postoperatively, and to use a recliner for ease of movement during initial recovery. - Instructed to stop 81 mg aspirin 5 days prior to surgery. - Patient expressed understanding of the plan and will coordinate with sprinkler repair technician to arrange surgery date. My findings have been communicated to Dr. Ross Blandon MD via shared medical record. This note will be forwarded to Dr. Ross Blandon MD. Diagnoses: (K40.90) Left inguinal hernia (primary encounter diagnosis) Anticipated CPT Code: Initial anterior abdominal hernia repair: 44343 - 3-10 cm reducible Anticipated Anesthetic: MAC with local Patient weight: Blood pressure 133/71, pulse 68, resp. rate 16, weight 74.9 kg (165 lb 1.6 oz). BMI: Body mass index is 27.06 kg/m . Planned antibiotic: clindamycin 900mg IVPB coordinator of rehabilitation services to OR SCDs needed - Yes Return to Clinic: The patient is instructed to follow-up with me 1 week post operatively. Dontae Rowe III, MD [1] Social History Tobacco Use Smoking status: Former Types: Pipe Smokeless tobacco: Never Tobacco comments: Pt quit smoking pipe. Vaping Use Vaping status: Never Used Substance Use Topics Alcohol use: Yes Alcohol/week: 9.1 standard drinks of alcohol Types: 7 Mixed Drinks per week Drug use: Never documented in this encounter [facility] 11-17-2024 Note HNO ID: [id number] Author: DONTAE ROWE MD Service: ? Author Type: Physician Type: Progress Notes Filed: 11/17/2024 13:24 Note Text: HISTORY AND PHYSICAL Andrew Mari Karmen BORJAS 1940 REFERRING PHYSICIAN: No ref. provider found CHIEF COMPLAINT: Inguinal Hernia (Lt side Inguinal hernia) HPI: Andrew Peraza is an 84-year-old male, with a history of left first carpal bone arthritis and a left inguinal hernia, presenting for evaluation of hernia repair. Andrew reports a left inguinal hernia that he noticed was bulky and reducible without pain or tenderness. He recalls a previous right inguinal hernia repair performed [address] Rivero, who mentioned encountering some difficulty with the incision scar. Andrew has a history of radical prostatectomy. He also reports significant weight loss, having reduced his weight from 350 lbs to 255 lbs. He denies undergoing bariatric surgery but has had a total knee and partial knee replacement. 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 He is considering surgical options for this condition. PAST MEDICAL HISTORY Diagnosis Date Adjustment insomnia Advance directive discussed with patient 04/19/2022 Discussed 04/2022: up to date Aortic root dilatation 04/18/2021 Arthritis of knee 08/02/2016 DDD (degenerative disc disease), cervical 04/18/2021 May need prn prednisone. DDD (degenerative disc disease), lumbar 03/15/2017 Diverticulosis of colon (without mention of hemorrhage) Diverticulosis of large intestine without hemorrhage 03/21/2018 Added automatically from request for surgery [id number] Elevated blood sugar 04/19/2022 Essential hypertension 01/22/2007 03/11/2019: Home BP Cuff Validated. 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 Personal history of malignant melanoma of skin 06/21/2010 Situational depression 11/24/2016 Status post total knee replacement, right 12/07/2016 Tubular adenoma of colon 03/14/20172014--tubular adenoma in mid transverse colon and rectum Urinary hesitancy 12/08/2022 PAST SURGICAL HISTORY Procedure Laterality Date ABDOMINAL SURGERY HX ARTHRP KNE CONDYLEANDPLATU MEDIALANDLAT COMPARTMENTS Right 10/30/2016 Knee replacement, total COLONOSCOPY FLX DX W/COLLJ SPEC WHEN PFRMD 05/14/2014 Colonoscopy COLONOSCOPY FLX DX W/COLLJ SPEC WHEN PFRMD 04/29/2018 Colonoscopy COLONOSCOPY FLX DX W/COLLJ SPEC WHEN PFRMD 09/16/2020 COLONOSCOPY W/BIOPSY SINGLE/MULTIPLE 04/29/2010 DESTRUCTION, 1ST LESION 06/19/2012 Amputation/cauterization right medial malleolus EGD ESOPHAGOGASTRODUODENOSCOPY TRANSORAL DIAGNOSTIC 04/29/2018 EGD EYE SURGERY HX HERNIA REPAIR HX JOINT REPLACEMENT HX KNEE ARTHROSCOPY Right 2004 LAPS PROSTECT RETROPUBIC RAD W/NRV SPARING ROBOT 1996 NEUROPLASTY AND/TRANSPOS MEDIAN NRV CARPAL TUNNE Right 09/18/2019 Right carpal tunnel release RPR 1ST INGUN HRNA AGE 5 YRS/> REDUCIBLE Right 12/08/2014 [place] SHOULDER ARTHROSCOPY/SURGERY Right 1988 SHOULDER ARTHROSCOPY/SURGERY Left 1989 SKIN BIOPSY HX TONSILLECTOMY AND ADENOIDECTOMY HX 194 Current Outpatient Medications Medication Sig lisinopril (ZESTRIL) 20 mg tablet Take 1 tablet by mouth once daily. omeprazole (PRILOSEC) 20 mg capsule Take 1 capsule by mouth once daily on an empty stomach. metoprolol succinate ER (TOPROL XL) 50 mg 24 hr tablet Take 1 tablet by mouth once daily. cyanocobalamin (VITAMIN B-12) 100 mcg tab Take 100 mcg by mouth once daily. aspirin, enteric coated (ASPIRIN, ENTERIC COATED) 81 mg EC tablet Take 81 mg by mouth once daily. Take one tablet daily fluticasone (FLONASE ALLERGY RELIEF) 50 mcg/actuation nasal spray Use 2 Sprays in each nostril once daily. (Patient not taking: Reported on 07/14/2024) No current facility-administered medications for this visit. ALLERGIES: Penicillin G and Zoloft [Sertraline Hcl] PERSONAL HISTORY: SOCIAL HISTORY[1] FAMILY HISTORY: FAMILY HISTORY Problem Relation Age of Onset Hypertension Mother Heart Attack Mother other (diverticulitis) Father Sudden Cardiac Father Prostate Can (more content not included)... [facility] 10-23-2024 Note HNO ID: [id number] Author: APOLINAR BLEVINS, ? Service: ? Author Type: Physician Type: Progress Notes Filed: 10/23/2024 10:55 Note Text: Subjective: Patient presents to clinic c/o painful toenails. They state that the nails are especially painful with shoe gear and pressure. Patient states that nails 1-5 b/l are painful. No other pedal complaints at this time. Patient states no change in medications or medical history since last visit. Objective: Patient presents to clinic ambulating in sneakers Vasc: DP and PT pulses are faintly palpable bilateral. CFT is less than 5 seconds bilateral. Skin temperature is warm to cool proximal to distal bilateral. There is mild edema or varicosities noted. Neuro: Protective sensation is intact to the foot and toes when tested with the 5.07 SWM bilateral. The hallux is downgoing bilateral. Derm: Nails 1-5 b/l are painful, discolored-yellow, thick, crumbly, dystrophic and with subungal debris. Skin is of normal turgor, texture and hair growth is present bilateral. There are no hyperkeratosis, ulcerations, scars, verruca or other lesions noted. Ortho: Muscle strength is 5/5 for all pedal groups tested. Ankle joint DF is full with the knee extended with no pain or crepitus noted. 1st MPJ ROM is full bilateral. Assessment: (B35.1) Onychomycosis (primary encounter diagnosis) (M79.674) Pain in toe of right foot (M79.675) Pain in toe of left foot Plan: Patient was seen and evaluated. Nails 1-5 bilateral were debrided in length and thickness. Patient is to RTC in 3-4 months. Apolinar Blevins DPM [facility] 10-23-2024 History of Present illness Narrative Subjective: Patient presents to clinic c/o painful toenails. They state that the nails are especially painful with shoe gear and pressure. Patient states that nails 1-5 b/l are painful. No other pedal complaints at this time. Patient states no change in medications or medical history since last visit. Objective: Patient presents to clinic ambulating in [facility] Vasc: DP and PT pulses are faintly palpable bilateral. CFT is less than 5 seconds bilateral. Skin temperature is warm to cool proximal to distal bilateral. There is mild edema or varicosities noted. Neuro: Protective sensation is intact to the foot and toes when tested with the 5.07 SWM bilateral. The hallux is downgoing bilateral. Derm: Nails 1-5 b/l are painful, discolored-yellow, thick, crumbly, dystrophic and with subungal debris. Skin is of normal turgor, texture and hair growth is present bilateral. There are no hyperkeratosis, ulcerations, scars, verruca or other lesions noted. Ortho: Muscle strength is 5/5 for all pedal groups tested. Ankle joint DF is full with the knee extended with no pain or crepitus noted. 1st MPJ ROM is full bilateral. Assessment: (B35.1) Onychomycosis (primary encounter diagnosis) (M79.674) Pain in toe of right foot (M79.675) Pain in toe of left foot Plan: Patient was seen and evaluated. Nails 1-5 bilateral were debrided in length and thickness. Patient is to RTC in 3-4 months. Apolinar Blevins DPM Patient presents with: Left Foot - Established Patient: Nail care Right Foot - Established Patient: Nail care documented in this encounter [facility] 10-23-2024 Note HNO ID: [id number] Author: NITA TOVAR RN Service: ? Author Type: Registered Nurse Type: Progress Notes Filed: 10/23/2024 10:55 Note Text: Patient presents with: Left Foot - Established Patient: Nail care Right Foot - Established Patient: Nail care [facility] 10-13-2024 Note HNO ID: [id number] Author: TRAN YOUNG PA-C Service: ? Author Type: Physician Passport Support Manager Type: Progress Notes Filed: 10/13/2024 11:06 Note Text: Tran Young PA-C Department of Orthopaedics Orthopaedics [address] [facility] [address] Dept: [phone] Dept October 13, 2024 CHIEF COMPLAINT: Follow Up of the Right Hand Thumb Pain: - Pain relief from previous cortisone injection lasted a few weeks. - Pain has returned to previous levels. - Hesitant about surgery due to concerns about recovery and dependence on others. - Lives alone with two cats; has a son in town but does not want to rely on him daily. - Previous successful L5 injections for sciatica by Dr. Leach, with the third injection providing long-term relief, He is hoping that the CMC injections will also be cumulative and that this third steroid injection will alleviate his pain. 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 - Discussed surgical intervention as a definitive treatment option, including expected 3-month recovery, need for hand therapy, and temporary restrictions on lifting, pushing, and pulling; patient expressed concerns about post-operative pain and functional limitations. - Reviewed typical outcomes and differences in recovery experiences; addressed patient?s questions regarding pain relief and recovery. - Patient elected to continue with corticosteroid injections for symptom management at this time. - Follow-up in 91 days to reassess symptoms and discuss further management options as needed. 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 Gen:There were no vitals taken for this visit. nl development, non obese, no deformities ENT: Normocephalic, normal hearing, moist mucosa CV: Pulses:Radial= 2+ and symmetric, capillary refill < 2 secs, no peripheral edema/varicosities Skin: no rash, bruising or lesions. Good turgor. Psych: cooperative and appropriate, alert and oriented x 3, good mood and affect. Musculoskeletal: right thumb with mild swelling at the base. Mild tenderness to palpation at the dorsal capsule with very minimal crepitance. Painful grind test. Good motion at the MCP without hyperextension. Same with PIP and no locking or catching. Median, radial and ulnar nerves are intact. Non-tender first dorsal compartment with a negative Bianka's test. In addition to the comprehensive evaluation, assessment and plan outlined above, and as a distinct and separate element to the visit today, separate from surgical discussion right thumb, we have made the determination to proceed with an injection to aid in the management of the patient's condition. We discussed the risks, benefits, alternatives and expected outcomes of this injection in detail, and the patient agreed to proceed. The procedure was performed as detailed below. Small Joint Arthro/Inj: R thumb CMC 10/13/2024 11:02 AM The procedure site was prepped in the usual sterile fashion. Medications: 3 mg betamethasone acetate-betamethasone sodium phosphate 6 mg/mL Anesthetics: 0.5 mL lidocaine (PF) 10 mg/mL (1 %) Outcome: tolerated well, no immediate complications Post-injection instructions were reviewed with the patient and the patient voiced understanding of these instructions. Informed Consent Consent Obtained: Verbal [place] Protocol A moment to CARE was completed. SIGN IN Sign in communication not applicable due to emergent procedure. Personnel directly involved with the procedure wore the appropriate PPE. Special Equipment: N/A Patient/Surrogate Stated/Verified: Patient name, Date of , Relevant allergies and Intended procedure TIME OUT Relevant labs, photos, and/or imaging studies have been reviewed. Consent documented and matches the intended procedure. Correct side/site marked and visible. Medications required for procedure verified. No fire risk assessment and interventions applicable. No implant(s) inserted. SIGN OUT No specimen collected. Imaging: IMPRESSION: Osteoarthritis as described. Gasfitter: PSCB Transcribe Date/Time: Apr 30 2024 8:21P Dictated by : YUNIER PAT MD This examination was interpreted and the report reviewed and electronically signed by: YUNIER PAT MD on Apr 30 2024 8:21PM EST Results-Findings * * *Final Report* * * DATE OF EXAM: Apr 28 2024 10:32AM [id number] - XR HAND 3V PA/LAT/OBL RT / PROCEDURE REASON: Right hand pain * * * * P (more content not included)... 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 - Pain has returned to previous levels. - Hesitant about surgery due to concerns about recovery and dependence on others. - Lives alone with two cats; has a son in town but does not want to rely on him daily. - Previous successful L5 injections for sciatica by Dr. Leach, with the third injection providing long-term relief, He is hoping that the CMC injections will also be cumulative and that this third steroid injection will alleviate his pain. 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 - Discussed surgical intervention as a definitive treatment option, including expected 3-month recovery, need for hand therapy, and temporary restrictions on lifting, pushing, and pulling; patient expressed concerns about post-operative pain and functional limitations. - Reviewed typical outcomes and differences in recovery experiences; addressed patient s questions regarding pain relief and recovery. - Patient elected to continue with corticosteroid injections for symptom management at this time. - Follow-up in 91 days to reassess symptoms and discuss further management options as needed. 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 Gen:There were no vitals taken for this visit. nl development, non obese, no deformities ENT: Normocephalic, normal hearing, moist mucosa CV: Pulses:Radial= 2+ and symmetric, capillary refill < 2 secs, no peripheral edema/varicosities Skin: no rash, bruising or lesions. Good turgor. Psych: cooperative and appropriate, alert and oriented x 3, good mood and affect. Musculoskeletal: right thumb with mild swelling at the base. Mild tenderness to palpation at the dorsal capsule with very minimal crepitance. Painful grind test. Good motion at the MCP without hyperextension. Same with PIP and no locking or catching. Median, radial and ulnar nerves are intact. Non-tender first dorsal compartment with a negative Bianka's test. In addition to the comprehensive evaluation, assessment and plan outlined above, and as a distinct and separate element to the visit today, separate from surgical discussion right thumb, we have made the determination to proceed with an injection to aid in the management of the patient's condition. We discussed the risks, benefits, alternatives and expected outcomes of this injection in detail, and the patient agreed to proceed. The procedure was performed as detailed below. Small Joint Arthro/Inj: R thumb CMC 10/13/2024 11:02 AM The procedure site was prepped in the usual sterile fashion. Medications: 3 mg betamethasone acetate-betamethasone sodium phosphate 6 mg/mL Anesthetics: 0.5 mL lidocaine (PF) 10 mg/mL (1 %) Outcome: tolerated well, no immediate complications Post-injection instructions were reviewed with the patient and the patient voiced understanding of these instructions. Informed Consent Consent Obtained: Verbal [place] Protocol A moment to CARE was completed. SIGN IN Sign in communication not applicable due to emergent procedure. Personnel directly involved with the procedure wore the appropriate PPE. Special Equipment: N/A Patient/Surrogate Stated/Verified: Patient name, Date of , Relevant allergies and Intended procedure TIME OUT Relevant labs, photos, and/or imaging studies have been reviewed. Consent documented and matches the intended procedure. Correct side/site marked and visible. Medications required for procedure verified. No fire risk assessment and interventions applicable. No implant(s) inserted. SIGN OUT No specimen collected. Imaging: IMPRESSION: Osteoarthritis as described. Gasfitter: PAUL Transcribe Date/Time: Apr 30 2024 8:21P Dictated by : YUNIER PAT MD This examination was interpreted and the report reviewed and electronically signed by: YUNIER PAT MD on Apr 30 2024 8:21PM EST Results-Findings * * *Final Report* * * DATE OF EXAM: Apr 28 2024 10:32AM [id number] - XR HAND 3V PA/LAT/OBL RT / PROCEDURE REASON: Right hand pain * * * * Physician Interpretation * * * * EXAMINATION / TECHNIQUE: XR HAND 3V PA/LAT/OBL RT HISTORY: PT STATES RIGHT HAND INJURY YEARS AGO HAVING RIGHT HAND PAIN AGAIN Right hand pain COMPARISON: 07/07/2019. RESULT: No acute fracture or dislocation is identified. Mild triscaphe, severe first CMC joint, moderate second MCP joint, and scattered interphalangeal joint osteoarthritis. No osseous erosion. Supporting Subjective Information Below: Past Surgical History: PAST SURGICAL HISTORY Procedure Laterality Date ABDOMINAL SURGERY HX ARTHRP KNE CONDYLE&PLATU MEDIAL&LAT COMPARTMENTS Right 10/30/2016 Knee replacement, total COLONOSCOPY FLX DX W/COLLJ SPEC WHEN PFRMD 05/14/2014 Colonoscopy COLONOSCOPY FLX DX W/COLLJ SPEC WHEN PFRMD 04/29/2018 Colonoscopy COLONOSCOPY FLX DX W/COLLJ SPEC WHEN PFRMD 09/16/2020 COLONOSCOPY W/BIOPSY SINGLE/MULTIPLE 04/29/2010 DESTRUCTION, 1ST LESION 06/19/2012 Amputation/cauterization right medial malleolus EGD ESOPHAGOGASTRODUODENOSCOPY TRANSORAL DIAGNOSTIC 04/29/2018 EGD EYE SURGERY HX HERNIA REPAIR HX JOINT REPLACEMENT HX KNEE ARTHROSCOPY Right 2004 LAPS PROSTECT RETROPUBIC RAD W/NRV SPARING ROBOT 1996 NEUROPLASTY &/TRANSPOS MEDIAN NRV CARPAL TUNNE Right 09/18/2019 Right carpal tunnel release RPR 1ST INGUN HRNA AGE 5 YRS/> REDUCIBLE Right 12/08/2014 [facility] SHOULDER ARTHROSCOPY/SURGERY Right 1988 SHOULDER ARTHROSCOPY/SURGERY Left 1989 SKIN BIOPSY HX TONSILLECTOMY AND ADENOIDECTOMY HX 194 Medications: CURRENT MEDICATIONS[1] Allergies: Penicillin G and Zoloft [Sertraline Hcl] ROS: General (negative for fatigue, malaise, weight loss/gain) HEENT (negative for headache, earache, recent vision changes, sinus pain, sore throat) Respiratory (no recent shortness of breath, hemoptysis) CV (negative for chest tightness, palpitations) Musculoskeletal (see HPI) Psych (no depression, anxiety) This note was partially generated using [employer] voice recognition system, and there may be some incorrect words, spellings, and punctuation that were not noted in checking the note before saving. Tran Young PA-C [1] Current Outpatient Medications Medication Sig lisinopril (ZESTRIL) 20 mg tablet Take 1 tablet by mouth once daily. omeprazole (PRILOSEC) 20 mg capsule Take 1 capsule by mouth once daily on an empty stomach. metoprolol succinate ER (TOPROL XL) 50 mg 24 hr tablet Take 1 tablet by mouth once daily. cyanocobalamin (VITAMIN B-12) 100 mcg tab Take 100 mcg by mouth once daily. aspirin, enteric coated (ASPIRIN, ENTERIC COATED) 81 mg EC tablet Take 81 mg by mouth once daily. Take one tablet daily fluticasone (FLONASE ALLERGY RELIEF) 50 mcg/actuation nasal spray Use 2 Sprays in each nostril once daily. (Patient not taking: Reported on 07/14/2024) No current facility-administered medications for this visit. AMB ROOMING INTAKE FLOWSHEET DATA Pain Pain Level: 5 Pain Location: Hand-Right Description: Sharp Duration Amount of Time: (ongoing) Frequency: Intermittent Intervention/Comfort measure: Other: See comment (none) documented in this encounter [facility] 10-13-2024 Note HNO ID: [id number] Author: TRINIDAD BROWNLEE MA Service: ? Author Type: Typer Type: Progress Notes Filed: 10/13/2024 11:06 Note Text: AMB ROOMING INTAKE FLOWSHEET DATA Pain Pain Level: 5 Pain Location: Hand-Right Description: Sharp Duration Amount of Time: (ongoing) Frequency: Intermittent Intervention/Comfort measure: Other: See comment (none) [facility] 09-09-2024 Note HNO ID: [id number] Author: APOLINAR BLEVINS, ? Service: ? Author Type: Physician Type: Progress Notes Filed: 09/09/2024 22:51 Note Text: FOLLOW UP PODIATRIC OFFICE VISIT Chief Complaint: This 83 year old who presents for follow up:left hallux medial nail border matrixectomy Patient presents to clinic for follow-up matrixectomy of left hallux medial nail border Patient denies any pain Feels very well. Denies any drainage. PAIN EVALUATION No data found in the last 1 encounters. Hemoglobin A1C Date Value Ref Range Status 04/22/2024 5.5 4.3 - 5.6 % Final Comment: [place] [employer] guidelines indicate that patients with HgbA1c in the range 5.7-6.4% are at increased risk for development of diabetes, and intervention by lifestyle modification may be beneficial. HgbA1c greater or equal to 6.5% is considered diagnostic of diabetes. PCP: Ross Blandon MD PAST MEDICAL HISTORY Diagnosis Date Advance directive discussed with patient 04/19/2022 Discussed 04/2022: up to date Aortic root dilatation 04/18/2021 Arthritis of knee 08/02/2016 DDD (degenerative disc disease), cervical 04/18/2021 May need prn prednisone. DDD (degenerative disc disease), lumbar 03/15/2017 Diverticulosis of colon (without mention of hemorrhage) Diverticulosis of large intestine without hemorrhage 03/21/2018 Added automatically from request for surgery [id number] Elevated blood sugar 04/19/2022 Essential hypertension 01/22/2007 03/11/2019: Home BP Cuff Validated. 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 omeprazole (PRILOSEC) 20 mg capsule Take 1 capsule by mouth once daily on an empty stomach. metoprolol succinate ER (TOPROL XL) 50 mg 24 hr tablet Take 1 tablet by mouth once daily. fluticasone (FLONASE ALLERGY RELIEF) 50 mcg/actuation nasal spray Use 2 Sprays in each nostril once daily. (Patient not taking: Reported on 07/14/2024) cyanocobalamin (VITAMIN B-12) 100 mcg tab Take 100 mcg by mouth once daily. aspirin, enteric coated (ASPIRIN, ENTERIC COATED) 81 mg EC tablet Take 81 mg by mouth once daily. Take one tablet daily No current facility-administered medications for this visit. ALLERGIES Allergen Reactions Penicillin G Hives Urticaria Reaction details: hives occurred within hours after administration at age 25 Outcome of reaction: stopped agent Tolerated the following: Penicillin g Zoloft [Sertraline * Other: See Comments nightmares PAST SURGICAL HISTORY Procedure Laterality Date ABDOMINAL SURGERY HX ARTHRP KNE CONDYLEANDPLATU MEDIALANDLAT COMPARTMENTS Right 10/30/2016 Knee replacement, total COLONOSCOPY FLX DX W/COLLJ SPEC WHEN PFRMD 05/14/2014 Colonoscopy COLONOSCOPY FLX DX W/COLLJ SPEC WHEN PFRMD 04/29/2018 Colonoscopy COLONOSCOPY FLX DX W/COLLJ SPEC WHEN PFRMD 09/16/2020 COLONOSCOPY W/BIOPSY SINGLE/MULTIPLE 04/29/2010 DESTRUCTION, 1ST LESION 06/19/2012 Amputation/cauterization right medial malleolus EGD ESOPHAGOGASTRODUODENOSCOPY TRANSORAL DIAGNOSTIC 04/29/2018 EGD EYE SURGERY HX HERNIA REPAIR HX JOINT REPLACEMENT HX KNEE ARTHROSCOPY Right 2004 LAPS PROSTECT RETROPUBIC RAD W/NRV SPARING ROBOT 1996 NEUROPLASTY AND/TRANSPOS MEDIAN NRV CARPAL TUNNE Right 09/18/2019 Right carpal tunnel release RPR 1ST INGUN HRNA AGE 5 YRS/> REDUCIBLE Right 12/08/2014 [facility] [place] SHOULDER ARTHROSCOPY/SURGERY Right 1988 SHOULDER ARTHROSCOPY/SURGERY Left 1989 SKIN BIOPSY HX TONSILLECTOMY AND ADENOIDECTOMY HX 1943 Physical Exam: OBJECTIVE: Constitutional: Pt is a well developed 83 year old male who is alert, oriented, cooperative and in no apparent distress. Eyes: Following during examination. No redness or drainage. Respiratory: RR normal and nonlabored. Even breathing. No evidence of distress. (more content not included)... [facility] 09-09-2024 History of Present illness Narrative FOLLOW UP PODIATRIC OFFICE VISIT Chief Complaint: This 83 year old who presents for follow up:left hallux medial nail border matrixectomy Patient presents to clinic for follow-up matrixectomy of left hallux medial nail border Patient denies any pain Feels very well. Denies any drainage. PAIN EVALUATION No data found in the last 1 encounters. Hemoglobin A1C Date Value Ref Range Status 04/22/2024 5.5 4.3 - 5.6 % Final Comment: [place] [employer] guidelines indicate that patients with HgbA1c in the range 5.7-6.4% are at increased risk for development of diabetes, and intervention by lifestyle modification may be beneficial. HgbA1c greater or equal to 6.5% is considered diagnostic of diabetes. PCP: Ross Blandon MD PAST MEDICAL HISTORY Diagnosis Date Advance directive discussed with patient 04/19/2022 Discussed 04/2022: up to date Aortic root dilatation 04/18/2021 Arthritis of knee 08/02/2016 DDD (degenerative disc disease), cervical 04/18/2021 May need prn prednisone. DDD (degenerative disc disease), lumbar 03/15/2017 Diverticulosis of colon (without mention of hemorrhage) Diverticulosis of large intestine without hemorrhage 03/21/2018 Added automatically from request for surgery [id number] Elevated blood sugar 04/19/2022 Essential hypertension 01/22/2007 03/11/2019: Home BP Cuff Validated. 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 omeprazole (PRILOSEC) 20 mg capsule Take 1 capsule by mouth once daily on an empty stomach. metoprolol succinate ER (TOPROL XL) 50 mg 24 hr tablet Take 1 tablet by mouth once daily. fluticasone (FLONASE ALLERGY RELIEF) 50 mcg/actuation nasal spray Use 2 Sprays in each nostril once daily. (Patient not taking: Reported on 07/14/2024) cyanocobalamin (VITAMIN B-12) 100 mcg tab Take 100 mcg by mouth once daily. aspirin, enteric coated (ASPIRIN, ENTERIC COATED) 81 mg EC tablet Take 81 mg by mouth once daily. Take one tablet daily No current facility-administered medications for this visit. ALLERGIES Allergen Reactions Penicillin G Hives Urticaria Reaction details: hives occurred within hours after administration at age 25 Outcome of reaction: stopped agent Tolerated the following: Penicillin g Zoloft [Sertraline * Other: See Comments nightmares PAST SURGICAL HISTORY Procedure Laterality Date ABDOMINAL SURGERY HX ARTHRP KNE CONDYLE&PLATU MEDIAL&LAT COMPARTMENTS Right 10/30/2016 Knee replacement, total COLONOSCOPY FLX DX W/COLLJ SPEC WHEN PFRMD 05/14/2014 Colonoscopy COLONOSCOPY FLX DX W/COLLJ SPEC WHEN PFRMD 04/29/2018 Colonoscopy COLONOSCOPY FLX DX W/COLLJ SPEC WHEN PFRMD 09/16/2020 COLONOSCOPY W/BIOPSY SINGLE/MULTIPLE 04/29/2010 DESTRUCTION, 1ST LESION 06/19/2012 Amputation/cauterization right medial malleolus EGD ESOPHAGOGASTRODUODENOSCOPY TRANSORAL DIAGNOSTIC 04/29/2018 EGD EYE SURGERY HX HERNIA REPAIR HX JOINT REPLACEMENT HX KNEE ARTHROSCOPY Right 2004 LAPS PROSTECT RETROPUBIC RAD W/NRV SPARING ROBOT 1996 NEUROPLASTY &/TRANSPOS MEDIAN NRV CARPAL TUNNE Right 09/18/2019 Right carpal tunnel release RPR 1ST INGUN HRNA AGE 5 YRS/> REDUCIBLE Right 12/08/2014 [facility] SHOULDER ARTHROSCOPY/SURGERY Right 1988 SHOULDER ARTHROSCOPY/SURGERY Left 1989 SKIN BIOPSY HX TONSILLECTOMY AND ADENOIDECTOMY HX 194 Physical Exam: OBJECTIVE: Constitutional: Pt is a well developed 83 year old male who is alert, oriented, cooperative and in no apparent distress. Eyes: Following during examination. No redness or drainage. Respiratory: RR normal and nonlabored. Even breathing. No evidence of distress. Psychology: Patient is engaged during conversation. Normal affect and mood. Does not appear depressed or anxious. NVSI unchanged from previous visit. Dermatological: Left hallux medial nail border is healing without signs of infection No other skin lesions noted. Musculoskeletal/Orthopaedic: Patient has no pain to palpation of left hallux ASSESSMENT: (S91.109A) Open wound of toe, initial encounter (primary encounter diagnosis) PLAN: Patient is progressing well s/p partial nail matrixectomy of the left hallux medial nail border. Continue with local wound care until the toe is completely healed Can follow-up every 3 months for nail care Call if any issues develop Apolinar Blevins DPM AMB ROOMING INTAKE FLOWSHEET DATA Patient presents with: Right Great Toe - Established Patient, Follow Up, Ingrown Toenail: 2 week follow up procedure Left Great Toe - Established Patient, Follow Up, Ingrown Toenail: 2 week follow up procedure Mary Rand LPN documented in this encounter [facility] 09-02-2024 Instructions Apolinar Blevins - 09/02/2024 4:26 PM EDT Your toe is looking very well Continue with topical antibiotic and a band aide for the next 1 week or so until completely healed If you have any questions, please feel free to call me My cell number is [phone] documented in this encounter [facility] 09-02-2024 Note HNO ID: [id number] Author: MARY RAND LPN Service: ? Author Type: LICENSED NURSE Type: Progress Notes Filed: 09/09/2024 22:51 Note Text: AMB ROOMING INTAKE FLOWSHEET DATA Patient presents with: Right Great Toe - Established Patient, Follow Up, Ingrown Toenail: 2 week follow up procedure Left Great Toe - Established Patient, Follow Up, Ingrown Toenail: 2 week follow up procedure Mary Rand LPN [facility] 08-20-2024 Note HNO ID: [id number] Author: TERRI MORROW MA Service: ? Author Type: Typer Type: Progress Notes Filed: 08/20/2024 10:26 Note Text: Post-Op Nail Instructions Minimize activity until the anesthesia wears off (about 2-8 hours). Increase activity to tolerance Remove bandage tomorrow Soak affected toe/foot in epsom salts for 15-20 minutes twice daily After soaking, apply antibiotic ointment (OTC Neosporin) to affected toe and re bandage OTC Ibuprofen if having pain, provided you have no allergies or intolerance to NSAIDS Mild drainage, redness, and blood is expected, but if you expeirence severe pain, increase in drainage, swelling, or red streaking please contact our office immediately Feel free to contact office as well if you have any questions/concerns [phone], ask for Podiatry Nurse [facility] 08-20-2024 History of Present illness Narrative Post-Op Nail Instructions Minimize activity until the anesthesia wears off (about 2-8 hours). Increase activity to tolerance Remove bandage tomorrow Soak affected toe/foot in epsom salts for 15-20 minutes twice daily After soaking, apply antibiotic ointment (OTC Neosporin) to affected toe and re bandage OTC Ibuprofen if having pain, provided you have no allergies or intolerance to NSAIDS Mild drainage, redness, and blood is expected, but if you expeirence severe pain, increase in drainage, swelling, or red streaking please contact our office immediately Feel free to contact office as well if you have any questions/concerns [phone], ask for Podiatry Nurse Per Dr. Blevins Andrew was provided with left hallux ingrown after procedure dressing wrap: Amerigel, non-adherent gauze and coband and instructed/educated in its application, wear, and care. All questions were answered, and patient was able to demonstrate competence with the necessary skills to utilize the above equipment. Terri Morrow MA UNIVERSAL PROTOCOL / SAFETY CHECKLIST Procedure to be Performed: Partial chemical matrixectomy, left hallux medial nail border Sign In: A Moment of CARE was completed. Appropriate PPE (Personal Protective Equipment) worn by all providers involved with the procedure. Special equipment not required. Patient/Surrogate Stated/Verified: Patient name, Date of , Relevant allergies, and The intended procedure Time Out: Relevant labs, photos, and/or imaging studies have been reviewed. Intended patient and procedure match the source document(s) (e.g. consent, H&P, associated studies [imaging, pathology]) match the intended patient and procedure. Consent obtained and matches the intended procedure. Yes. Correct side/site is not applicable. Medications required for this procedure are verified. Fire risk assessed and is not applicable. Implants: are not applicable. Sign Out: Specimens not collected. All instruments, equipment, possible retained foreign bodies are accounted for. Yes. The post-procedure plan of care has been communicated to the patient or surrogate. FOLLOW UP PODIATRIC OFFICE VISIT Chief Complaint: This 83 year old who presents for follow up:ingrowing toenail. Patient presents to clinic for evaluation of both feet. His greatest concern is pain to the medial border of left hallux. He states since he had his nail cut in July, the nail has been painful. He has tendency to develop ingrowing toenails. He had ingrown on right great toe and this was treated in 2023 with partial nail matrixectomy. He has not had any problems since. He denies any redness or drainage. He is scheduled to go to [place] in 3 weeks. PAIN EVALUATION 08/20/2024 0905 Pain Level: 5 Pain Location: Toe Description: Sore Duration Amount of Time: 1 Duration Units: Months Frequency: Continuous Intervention/Comfort measure: Relaxation;Reposition Hemoglobin A1C Date Value Ref Range Status 04/22/2024 5.5 4.3 - 5.6 % Final Comment: [place] [employer] guidelines indicate that patients with HgbA1c in the range 5.7-6.4% are at increased risk for development of diabetes, and intervention by lifestyle modification may be beneficial. HgbA1c greater or equal to 6.5% is considered diagnostic of diabetes. PCP: Ross Blandon MD PAST MEDICAL HISTORY Diagnosis Date Advance directive discussed with patient 04/19/2022 Discussed 04/2022: up to date Aortic root dilatation 04/18/2021 Arthritis of knee 08/02/2016 DDD (degenerative disc disease), cervical 04/18/2021 May need prn prednisone. DDD (degenerative disc disease), lumbar 03/15/2017 Diverticulosis of colon (without mention of hemorrhage) Diverticulosis of large intestine without hemorrhage 03/21/2018 Added automatically from request for surgery [id number] Elevated blood sugar 04/19/2022 Essential hypertension 01/22/2007 03/11/2019: Home BP Cuff Validated. 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 omeprazole (PRILOSEC) 20 mg capsule Take 1 capsule by mouth once daily on an empty stomach. metoprolol succinate ER (TOPROL XL) 50 mg 24 hr tablet Take 1 tablet by mouth once daily. cyanocobalamin (VITAMIN B-12) 100 mcg tab Take 100 mcg by mouth once daily. aspirin, enteric coated (ASPIRIN, ENTERIC COATED) 81 mg EC tablet Take 81 mg by mouth once daily. Take one tablet daily fluticasone (FLONASE ALLERGY RELIEF) 50 mcg/actuation nasal spray Use 2 Sprays in each nostril once daily. (Patient not taking: Reported on 07/14/2024) No current facility-administered medications for this visit. ALLERGIES Allergen Reactions Penicillin G Hives Urticaria Reaction details: hives occurred within hours after administration at age 25 Outcome of reaction: stopped agent Tolerated the following: Penicillin g Zoloft [Sertraline * Other: See Comments nightmares PAST SURGICAL HISTORY Procedure Laterality Date ABDOMINAL SURGERY HX ARTHRP KNE CONDYLE&PLATU MEDIAL&LAT COMPARTMENTS Right 10/30/2016 Knee replacement, total COLONOSCOPY FLX DX W/COLLJ SPEC WHEN PFRMD 05/14/2014 Colonoscopy COLONOSCOPY FLX DX W/COLLJ SPEC WHEN PFRMD 04/29/2018 Colonoscopy COLONOSCOPY FLX DX W/COLLJ SPEC WHEN PFRMD 09/16/2020 COLONOSCOPY W/BIOPSY SINGLE/MULTIPLE 04/29/2010 DESTRUCTION, 1ST LESION 06/19/2012 Amputation/cauterization right medial malleolus EGD ESOPHAGOGASTRODUODENOSCOPY TRANSORAL DIAGNOSTIC 04/29/2018 EGD EYE SURGERY HX HERNIA REPAIR HX JOINT REPLACEMENT HX KNEE ARTHROSCOPY Right 2004 LAPS PROSTECT RETROPUBIC RAD W/NRV SPARING ROBOT 1996 NEUROPLASTY &/TRANSPOS MEDIAN NRV CARPAL TUNNE Right 09/18/2019 Right carpal tunnel release RPR 1ST INGUN HRNA AGE 5 YRS/> REDUCIBLE Right 12/08/2014 [facility] SHOULDER ARTHROSCOPY/SURGERY Right 1988 SHOULDER ARTHROSCOPY/SURGERY Left 1989 SKIN BIOPSY HX TONSILLECTOMY AND ADENOIDECTOMY HX 1944 Physical Exam: OBJECTIVE: Constitutional: Pt is a well developed 83 year old male who is alert, oriented, cooperative and in no apparent distress. Eyes: Following during examination. No redness or drainage. Respiratory: RR normal and nonlabored. Even breathing. No evidence of distress. Psychology: Patient is engaged during conversation. Normal affect and mood. Does not appear depressed or anxious. NVSI unchanged from previous visit. Dermatological: Left hallux medial nail border appears thick and incurvated. There is pain. There are no signs of infection. Right hallux medial nail border has been removed. No pain. No signs of infection. Webspaces clean and dry 1-4 b/l. Skin appears well hydrated and supple. good color, texture, turgor. No open lesions present. No callosities present. Musculoskeletal/Orthopaedic: Patient has pain to palpation of left hallux medial nail border ASSESSMENT: (L60.0) Ingrowing toenail (primary encounter diagnosis) PLAN: Discussed ingrowing toenai of left hallux. The main issue for patient left great toenail is thickening and incurvation. Prior to now, he has been able to manage with periodic debridement and occasional slant back. He could continue with this vs consider partial or total nail matrixectomy. The medial border is incurvated and I fear if he leavs this alone, it may grow out and become secondarily infected. WE discussed doing a procedure today. He has elected to proceed I reviewed past pvr from 2022. He has what appears to be good blood flow to the left hallux. We discussed new pvr. He has elected to proceed today with partial nail matrixectomy. I discussed all r/b/a. We discussed post-op care. Discussed risks of toenail procedure not limited to infection, pain, swelling, bleeding, painful scarring, recurrence, need for revised procedure. Patient consented to proceed. Patient was properly identified by name and procedure. The left hallux was then injected with 3 cc of 1% lidocaine plain. The toe was then prepped and draped in the usual aseptic technique. A digital tournicot was applied to the toe. The medial border was then freed and removed. Careful inspection was performed to assure no remaining spicule present. 3 applications of phenol were then administered x 30 seconds each followed by alcohol rinse. Sterile dressing was then applied consisting of amerigel, guaze, swati and coban. Tournicot was removed and hyperemic response was noted. Patient tolerated well. Patient will f/u in 2 weeks. Apolinar Blevins DPM AMB ROOMING INTAKE FLOWSHEET DATA Pain Pain Level: 5 Pain Location: Toe Description: Sore Duration Amount of Time: 1 Duration Units: Months Frequency: Continuous Intervention/Comfort measure: Relaxation, Reposition Patient presents with: Right Great Toe - Established Patient, Follow Up, Ingrown Toenail, Pain Left Great Toe - Established Patient, Follow Up, Ingrown Toenail, Pain Mary Rand LPN documented in this encounter [facility] 08-20-2024 Note HNO ID: [id number] Author: TERRI MORROW MA Service: ? Author Type: Typer Type: Progress Notes Filed: 08/20/2024 10:26 Note Text: Per Dr. Blevins, Andrew was provided with left hallux ingrown after procedure dressing wrap: Amerigel, non-adherent gauze and coband and instructed/educated in its application, wear, and care. All questions were answered, and patient was able to demonstrate competence with the necessary skills to utilize the above equipment. Terri Morrow MA [facility] 08-20-2024 Instructions Apolinar Blevins - 08/20/2024 10:04 AM EDT Post-Op Nail Instructions Minimize activity until the anesthesia wears off (about 2-8 hours). Increase activity to tolerance Remove bandage tomorrow Soak affected toe/foot in epsom salts for 15-20 minutes twice daily After soaking, apply antibiotic ointment (OTC Neosporin) to affected toe and re bandage OTC Ibuprofen if having pain, provided you have no allergies or intolerance to NSAIDS Mild drainage, redness, and blood is expected, but if you expeirence severe pain, increase in drainage, swelling, or red streaking please contact our office immediately Feel free to contact office as well if you have any questions/concerns [phone], ask for Podiatry Nurse documented in this encounter [facility] 08-20-2024 Note HNO ID: [id number] Author: TERRI MORROW MA Service: ? Author Type: Typer Type: Progress Notes Filed: 08/20/2024 10:26 Note Text: UNIVERSAL PROTOCOL / SAFETY CHECKLIST Procedure to be Performed: Partial chemical matrixectomy, left hallux medial nail border Sign In: A Moment of CARE was completed. Appropriate PPE (Personal Protective Equipment) worn by all providers involved with the procedure. Special equipment not required. Patient/Surrogate Stated/Verified: Patient name, Date of , Relevant allergies, and The intended procedure Time Out: Relevant labs, photos, and/or imaging studies have been reviewed. Intended patient and procedure match the source document(s) (e.g. consent, HANDP, associated studies [imaging, pathology]) match the intended patient and procedure. Consent obtained and matches the intended procedure. Yes. Correct side/site is not applicable. Medications required for this procedure are verified. Fire risk assessed and is not applicable. Implants: are not applicable. Sign Out: Specimens not collected. All instruments, equipment, possible retained foreign bodies are accounted for. Yes. The post-procedure plan of care has been communicated to the patient or surrogate. [facility] 08-20-2024 Note HNO ID: [id number] Author: APOLINAR BLEVINS, ? Service: ? Author Type: Physician Type: Progress Notes Filed: 08/20/2024 10:26 Note Text: FOLLOW UP PODIATRIC OFFICE VISIT Chief Complaint: This 83 year old who presents for follow up:ingrowing toenail. Patient presents to clinic for evaluation of both feet. His greatest concern is pain to the medial border of left hallux. He states since he had his nail cut in July, the nail has been painful. He has tendency to develop ingrowing toenails. He had ingrown on right great toe and this was treated in 2023 with partial nail matrixectomy. He has not had any problems since. He denies any redness or drainage. He is scheduled to go to [place] in 3 weeks. PAIN EVALUATION 08/20/2024 0905 Pain Level: 5 Pain Location: Toe Description: Sore Duration Amount of Time: 1 Duration Units: Months Frequency: Continuous Intervention/Comfort measure: Relaxation;Reposition Hemoglobin A1C Date Value Ref Range Status 04/22/2024 5.5 4.3 - 5.6 % Final Comment: [place] [employer] guidelines indicate that patients with HgbA1c in the range 5.7-6.4% are at increased risk for development of diabetes, and intervention by lifestyle modification may be beneficial. HgbA1c greater or equal to 6.5% is considered diagnostic of diabetes. PCP: Ross Blandon MD PAST MEDICAL HISTORY Diagnosis Date Advance directive discussed with patient 04/19/2022 Discussed 04/2022: up to date Aortic root dilatation 04/18/2021 Arthritis of knee 08/02/2016 DDD (degenerative disc disease), cervical 04/18/2021 May need prn prednisone. DDD (degenerative disc disease), lumbar 03/15/2017 Diverticulosis of colon (without mention of hemorrhage) Diverticulosis of large intestine without hemorrhage 03/21/2018 Added automatically from request for surgery [id number] Elevated blood sugar 04/19/2022 Essential hypertension 01/22/2007 03/11/2019: Home BP Cuff Validated. 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 omeprazole (PRILOSEC) 20 mg capsule Take 1 capsule by mouth once daily on an empty stomach. metoprolol succinate ER (TOPROL XL) 50 mg 24 hr tablet Take 1 tablet by mouth once daily. cyanocobalamin (VITAMIN B-12) 100 mcg tab Take 100 mcg by mouth once daily. aspirin, enteric coated (ASPIRIN, ENTERIC COATED) 81 mg EC tablet Take 81 mg by mouth once daily. Take one tablet daily fluticasone (FLONASE ALLERGY RELIEF) 50 mcg/actuation nasal spray Use 2 Sprays in each nostril once daily. (Patient not taking: Reported on 07/14/2024) No current facility-administered medications for this visit. ALLERGIES Allergen Reactions Penicillin G Hives Urticaria Reaction details: hives occurred within hours after administration at age 25 Outcome of reaction: stopped agent Tolerated the following: Penicillin g Zoloft [Sertraline * Other: See Comments nightmares PAST SURGICAL HISTORY Procedure Laterality Date ABDOMINAL SURGERY HX ARTHRP KNE CONDYLEANDPLATU MEDIALANDLAT COMPARTMENTS Right 10/30/2016 Knee replacement, total COLONOSCOPY FLX DX W/COLLJ SPEC WHEN PFRMD 05/14/2014 Colonoscopy COLONOSCOPY FLX DX W/COLLJ SPEC WHEN PFRMD 04/29/2018 Colonoscopy COLONOSCOPY FLX DX W/COLLJ SPEC WHEN PFRMD 09/16/2020 COLONOSCOPY W/BIOPSY SINGLE/MULTIPLE 04/29/2010 DESTRUCTION, 1ST LESION 06/19/2012 Amputation/cauterization right medial malleolus EGD ESOPHAGOGASTRODUODENOSCOPY TRANSORAL DIAGNOSTIC 04/29/2018 EGD EYE SURGERY HX HERNIA REPAIR HX JOINT REPLACEMENT HX KNEE ARTHROSCOPY Right 2004 LAPS PROSTECT RETROPUBIC RAD W/NRV SPARING ROBOT 1996 NEUROPLASTY AND/TRANSPOS MEDIAN NRV CARPAL TUNNE Right 09/18/2019 Right carpal tunnel release RPR 1ST INGUN HRNA AGE 5 YRS/> REDUCIBLE Right 12/08/2014 [place] (more content not included)... [facility] 08-20-2024 Note HNO ID: [id number] Author: MARY RAND LPN Service: ? Author Type: LICENSED NURSE Type: Progress Notes Filed: 08/20/2024 10:26 Note Text: AMB ROOMING INTAKE FLOWSHEET DATA Pain Pain Level: 5 Pain Location: Toe Description: Sore Duration Amount of Time: 1 Duration Units: Months Frequency: Continuous Intervention/Comfort measure: Relaxation, Reposition Patient presents with: Right Great Toe - Established Patient, Follow Up, Ingrown Toenail, Pain Left Great Toe - Established Patient, Follow Up, Ingrown Toenail, Pain Mary Rand LPN [facility] 08-18-2024 Telephone encounter Note Called and spoke with patient. Patient is scheduled for Sunday08/20/2024 at 9:15 in [place] Mary Rand LPN [facility] Work Phone: 08-18-2024 Miscellaneous Notes Called and spoke with patient. Patient is scheduled for Sunday08/20/2024 at 9:15 in [place]. Mary Rand LPN Received a call from the patient. He reports his great toe is really sore and he thinks that he may have the start of an ingrown nail. Denies any drainage. He reports the pain woke him last night when the blankets brushed against the toe. He would like an appointment this week, if possible. I did not see any openings on the schedule. He asked if Podiatry nurse could give him a call back. [phone]. documented in this encounter [facility] 08-18-2024 Telephone encounter Note Received a call from the patient. He reports his great toe is really sore and he thinks that he may have the start of an ingrown nail. Denies any drainage. He reports the pain woke him last night when the blankets brushed against the toe. He would like an appointment this week, if possible. I did not see any openings on the schedule. He asked if Podiatry nurse could give him a call back. [phone]. [facility] 08-04-2024 Note HNO ID: [id number] Author: TRAN YOUNG PA-C Service: ? Author Type: Physician Passport Support Manager Type: Progress Notes Filed: 08/04/2024 10:42 Note Text: Small Joint Arthro/Inj: R thumb [facility] 08/04/2024 10:42 AM The procedure site was prepped in the usual sterile fashion. Medications: 3 mg betamethasone acetate-betamethasone sodium phosphate 6 mg/mL Anesthetics: 0.5 mL lidocaine (PF) 10 mg/mL (1 %) Outcome: tolerated well, no immediate complications Post-injection instructions were reviewed with the patient and the patient voiced understanding of these instructions. Informed Consent Consent Obtained: Verbal [place] Protocol A moment to CARE was completed. SIGN IN Sign in communication not applicable due to emergent procedure. Personnel directly involved with the procedure wore the appropriate PPE. Special Equipment: N/A Patient/Surrogate Stated/Verified: Patient name, Date of , Relevant allergies and Intended procedure TIME OUT Relevant labs, photos, and/or imaging studies have been reviewed. Consent documented and matches the intended procedure. Correct side/site marked and visible. Medications required for procedure verified. No fire risk assessment and interventions applicable. No implant(s) inserted. SIGN OUT No specimen collected. No post-procedure POC communication to the patient's multidisciplinary team (including the bedside nurse for hospitalized patients) applicable. [facility] 08-04-2024 History of Present illness Narrative Associated Order(s): Small Joint Arthro/Inj: R thumb CMC Post-Procedure Diagnose(s): 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 Small Joint Arthro/Inj: R thumb [facility]MC 08/04/2024 10:42 AM The procedure site was prepped in the usual sterile fashion. Medications: 3 mg betamethasone acetate-betamethasone sodium phosphate 6 mg/mL Anesthetics: 0.5 mL lidocaine (PF) 10 mg/mL (1 %) Outcome: tolerated well, no immediate complications Post-injection instructions were reviewed with the patient and the patient voiced understanding of these instructions. Informed Consent Consent Obtained: Verbal [place] Protocol A moment to CARE was completed. SIGN IN Sign in communication not applicable due to emergent procedure. Personnel directly involved with the procedure wore the appropriate PPE. Special Equipment: N/A Patient/Surrogate Stated/Verified: Patient name, Date of , Relevant allergies and Intended procedure TIME OUT Relevant labs, photos, and/or imaging studies have been reviewed. Consent documented and matches the intended procedure. Correct side/site marked and visible. Medications required for procedure verified. No fire risk assessment and interventions applicable. No implant(s) inserted. SIGN OUT No specimen collected. No post-procedure POC communication to the patient's multidisciplinary team (including the bedside nurse for hospitalized patients) applicable. Patient presents with: Right Hand - Follow Up: 3 weeks post visit right thumb CMC arthritis - (14 weeks post injection - here for injection) AMB ROOMING INTAKE FLOWSHEET DATA Pain Pain Level: (1-6) Pain Location: (Right thumb) Description: Sharp Duration Amount of Time: (Ongoing) Frequency: Continuous Intervention/Comfort measure: Medication Patient states he is taking Tylenol for the pain. Here to discuss injection. documented in this encounter [facility] 08-04-2024 Note HNO ID: [id number] Author: RADHA DEE MA Service: ? Author Type: Typer Type: Progress Notes Filed: 08/04/2024 10:42 Note Text: Patient presents with: Right Hand - Follow Up: 3 weeks post visit right thumb CMC arthritis - (14 weeks post injection - here for injection) AMB ROOMING INTAKE FLOWSHEET DATA Pain Pain Level: (1-6) Pain Location: (Right thumb) Description: Sharp Duration Amount of Time: (Ongoing) Frequency: Continuous Intervention/Comfort measure: Medication Patient states he is taking Tylenol for the pain. Here to discuss injection. [facility] 07-14-2024 Note HNO ID: [id number] Author: APOLINAR BLEVINS, ? Service: ? Author Type: Physician Type: Progress Notes Filed: 07/14/2024 09:07 Note Text: Subjective: Patient presents to clinic c/o painful toenails. They state that the nails are especially painful with shoe gear and pressure. Patient states that nails left 3rd toenail is painful. No other pedal complaints at this time. Patient states no change in medications or medical history since last visit. Objective: Patient presents to clinic ambulating in dress shoes Vasc: DP and PT pulses are palpable bilateral. CFT is less than 5 seconds bilateral. Skin temperature is warm to cool proximal to distal bilateral. There is no edema or varicosities noted. Neuro: Protective sensation is intact to the foot and toes when tested with the 5.07 SWM bilateral. Vibratory sensation is decreased at the hallux IPJ bilateral. The hallux is downgoing bilateral. Derm: Nails 1-5 b/l are painful, discolored-yellow, thick, crumbly, dystrophic and with subungal debris. Skin is of normal turgor, texture and hair growth is present bilateral. There are no hyperkeratosis, ulcerations, scars, verruca or other lesions noted. Ortho: Muscle strength is 5/5 for all pedal groups tested. Ankle joint DF is full with the knee extended with no pain or crepitus noted. 1st MPJ ROM is full bilateral. Assessment: (B35.1) Onychomycosis (primary encounter diagnosis) (M79.674) Pain in toe of right foot (M79.675) Pain in toe of left foot Plan: Patient was seen and evaluated. Nails 1-5 bilateral were debrided in length and thickness. Patient is to RTC in 3-4 months. Apolinar Blevins DPM [facility] 07-14-2024 History of Present illness Narrative Subjective: Patient presents to clinic c/o painful toenails. They state that the nails are especially painful with shoe gear and pressure. Patient states that nails left 3rd toenail is painful. No other pedal complaints at this time. Patient states no change in medications or medical history since last visit. Objective: Patient presents to clinic ambulating in dress shoes Vasc: DP and PT pulses are palpable bilateral. CFT is less than 5 seconds bilateral. Skin temperature is warm to cool proximal to distal bilateral. There is no edema or varicosities noted. Neuro: Protective sensation is intact to the foot and toes when tested with the 5.07 SWM bilateral. Vibratory sensation is decreased at the hallux IPJ bilateral. The hallux is downgoing bilateral. Derm: Nails 1-5 b/l are painful, discolored-yellow, thick, crumbly, dystrophic and with subungal debris. Skin is of normal turgor, texture and hair growth is present bilateral. There are no hyperkeratosis, ulcerations, scars, verruca or other lesions noted. Ortho: Muscle strength is 5/5 for all pedal groups tested. Ankle joint DF is full with the knee extended with no pain or crepitus noted. 1st MPJ ROM is full bilateral. Assessment: (B35.1) Onychomycosis (primary encounter diagnosis) (M79.674) Pain in toe of right foot (M79.675) Pain in toe of left foot Plan: Patient was seen and evaluated. Nails 1-5 bilateral were debrided in length and thickness. Patient is to RTC in 3-4 months. Apolinar Blevins DPM AMB ROOMING INTAKE FLOWSHEET DATA Patient presents with: Left Foot - Established Patient, Follow Up, nail care Right Foot - Established Patient, Follow Up, nail care Mary Rand LPN documented in this encounter [facility] 07-14-2024 Note HNO ID: [id number] Author: TRAN YOUNG PA-C Service: ? 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 Pain today is anywhere from a 0-7 out of 10 sharp aching. Pain is worse when he is doing certain activities that he cannot specify what activities these are. He had a CMC corticosteroid injection 11 weeks ago. Not taking any type of an oral anti-inflammatory, did not find the Ryzolt forte brace to be helpful. The injection was extremely helpful but only lasted for 4 days. He has status post right carpal tunnel release with Dr. Queen in 2019. He also dislocated his right second MCP joint in and had to have an open reduction in 2019. He complains that the combination of the thumb arthritis and lack of movement in the index finger makes things functionally difficult. 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 We did discuss his surgical options as far as a CMC arthroplasty. The patient is not interested in surgical options at this time. He would like to return at the 91-day zaida and repeat the CMC injection just to see if a second injection is more beneficial than the first. We briefly discussed getting him into one of our surgeons that would be able to offer additional options for the arthritis in his second MCP joint. Will continue to monitor patient for 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 (primary encounter diagnosis) Mcp subluxation, sequela, patient to schedule visit as per follow up discussed. 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 Gen:There were no vitals taken for this visit. nl development, non obese, no deformities ENT: Normocephalic, normal hearing, moist mucosa CV: Pulses:Radial= 2+ and symmetric, capillary refill < 2 secs, no peripheral edema/varicosities Skin: no rash, bruising or lesions. Good turgor. Psych: cooperative and appropriate, alert and oriented x 3, good mood and affect. Musculoskeletal: right thumb with mild swelling at the base. Mild tenderness to palpation at the dorsal capsule with very minimal crepitance. Painful grind test. Good motion at the MCP without hyperextension. Same with PIP and no locking or catching. Arthritic changes in the second MCP joint, some ulnar deviation of the index digit. Median, radial and ulnar nerves are intact. Non-tender first dorsal compartment with a negative Bianka's test. Imaging: IMPRESSION: Osteoarthritis as described. Gasfitter: PAUL Transcribe Date/Time: Apr 30 2024 8:21P Dictated by : YUNIER PAT MD This examination was interpreted and the report reviewed and electronically signed by: YUNIER PAT MD on Apr 30 2024 8:21PM EST Results-Findings * * *Final Report* * * DATE OF EXAM: Apr 28 2024 10:32AM [id number] - XR HAND 3V PA/LAT/OBL RT / PROCEDURE REASON: Right hand pain * * * * Physician Interpretation * * * * EXAMINATION / TECHNIQUE: XR HAND 3V PA/LAT/OBL RT HISTORY: PT STATES RIGHT HAND INJURY YEARS AGO HAVING RIGHT HAND PAIN AGAIN Right hand pain COMPARISON: 07/07/2019. RESULT: No acute fracture or dislocation is identified. Mild triscaphe, severe first CMC joint, moderate second MCP joint, and scattered interphalangeal joint osteoarthritis. No osseous erosion. Supporting Subjective Information Below: Past Surgical History: PAST SURGICAL HISTORY Procedure Laterality Date ABDOMINAL SURGERY HX ARTHRP KNE CONDYLEANDPLATU MEDIALANDLAT COMPARTMENTS Right 10/30/2016 Knee replacement, total COLONOSCOPY FLX DX W/COLLJ SPEC WHEN PFRMD 05/14/2014 Colonoscopy COLONOSCOPY FLX DX W/COLLJ SPEC WHEN PFRMD 04/29/2018 Colonoscopy COLONOSCOPY FLX DX W/COLLJ SPEC WHEN PFRMD 09/16/2020 COLONOSCOPY W/BIOPSY SINGLE/MULTIPLE 04/29/2010 DESTRUCTION, 1ST LESION 06/19/2012 Amputation/cauterization right medial malleolus EGD ESOPHAGOGASTRODUODENOSCOPY TRANSORAL DIAGNOSTIC 04/29/2018 EGD EYE SURGERY HX HERNIA REPAIR HX JOINT REPLACEMENT HX KNEE ARTHROSCOPY Right 2004 LAPS PROSTECT RETROPUBIC RAD W/NRV SPARING ROBOT 1996 (more content not included)... 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 Pain today is anywhere from a 0-7 out of 10 sharp aching. Pain is worse when he is doing certain activities that he cannot specify what activities these are. He had a CMC corticosteroid injection 11 weeks ago. Not taking any type of an oral anti-inflammatory, did not find the Ryzolt forte brace to be helpful. The injection was extremely helpful but only lasted for 4 days. He has status post right carpal tunnel release with Dr. Queen in 2019. He also dislocated his right second MCP joint in and had to have an open reduction in 2020. He complains that the combination of the thumb arthritis and lack of movement in the index finger makes things functionally difficult. 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 We did discuss his surgical options as far as a CMC arthroplasty. The patient is not interested in surgical options at this time. He would like to return at the 91-day zaida and repeat the CMC injection just to see if a second injection is more beneficial than the first. We briefly discussed getting him into one of our surgeons that would be able to offer additional options for the arthritis in his second MCP joint. Will continue to monitor patient for 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 (primary encounter diagnosis) Mcp subluxation, sequela, patient to schedule visit as per follow up discussed. 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 Gen:There were no vitals taken for this visit. nl development, non obese, no deformities ENT: Normocephalic, normal hearing, moist mucosa CV: Pulses:Radial= 2+ and symmetric, capillary refill < 2 secs, no peripheral edema/varicosities Skin: no rash, bruising or lesions. Good turgor. Psych: cooperative and appropriate, alert and oriented x 3, good mood and affect. Musculoskeletal: right thumb with mild swelling at the base. Mild tenderness to palpation at the dorsal capsule with very minimal crepitance. Painful grind test. Good motion at the MCP without hyperextension. Same with PIP and no locking or catching. Arthritic changes in the second MCP joint, some ulnar deviation of the index digit. Median, radial and ulnar nerves are intact. Non-tender first dorsal compartment with a negative Bianka's test. Imaging: IMPRESSION: Osteoarthritis as described. Gasfitter: PAUL Transcribe Date/Time: Apr 30 2024 8:21P Dictated by : YUNIER PAT MD This examination was interpreted and the report reviewed and electronically signed by: YUNIER PAT MD on Apr 30 2024 8:21PM EST Results-Findings * * *Final Report* * * DATE OF EXAM: Apr 28 2024 10:32AM [id number] - XR HAND 3V PA/LAT/OBL RT / PROCEDURE REASON: Right hand pain * * * * Physician Interpretation * * * * EXAMINATION / TECHNIQUE: XR HAND 3V PA/LAT/OBL RT HISTORY: PT STATES RIGHT HAND INJURY YEARS AGO HAVING RIGHT HAND PAIN AGAIN Right hand pain COMPARISON: 07/07/2019. RESULT: No acute fracture or dislocation is identified. Mild triscaphe, severe first CMC joint, moderate second MCP joint, and scattered interphalangeal joint osteoarthritis. No osseous erosion. Supporting Subjective Information Below: Past Surgical History: PAST SURGICAL HISTORY Procedure Laterality Date ABDOMINAL SURGERY HX ARTHRP KNE CONDYLE&PLATU MEDIAL&LAT COMPARTMENTS Right 10/30/2016 Knee replacement, total COLONOSCOPY FLX DX W/COLLJ SPEC WHEN PFRMD 05/14/2014 Colonoscopy COLONOSCOPY FLX DX W/COLLJ SPEC WHEN PFRMD 04/29/2018 Colonoscopy COLONOSCOPY FLX DX W/COLLJ SPEC WHEN PFRMD 09/16/2020 COLONOSCOPY W/BIOPSY SINGLE/MULTIPLE 04/29/2010 DESTRUCTION, 1ST LESION 06/19/2012 Amputation/cauterization right medial malleolus EGD ESOPHAGOGASTRODUODENOSCOPY TRANSORAL DIAGNOSTIC 04/29/2018 EGD EYE SURGERY HX HERNIA REPAIR HX JOINT REPLACEMENT HX KNEE ARTHROSCOPY Right 2004 LAPS PROSTECT RETROPUBIC RAD W/NRV SPARING ROBOT 1996 NEUROPLASTY &/TRANSPOS MEDIAN NRV CARPAL TUNNE Right 09/18/2019 Right carpal tunnel release RPR 1ST INGUN HRNA AGE 5 YRS/> REDUCIBLE Right 12/08/2014 [facility] SHOULDER ARTHROSCOPY/SURGERY Right 1988 SHOULDER ARTHROSCOPY/SURGERY Left 1989 SKIN BIOPSY HX TONSILLECTOMY AND ADENOIDECTOMY HX 1943 Medications: Current Outpatient Medications Medication Sig lisinopril (ZESTRIL) 20 mg tablet Take 1 tablet by mouth once daily. omeprazole (PRILOSEC) 20 mg capsule Take 1 capsule by mouth once daily on an empty stomach. metoprolol succinate ER (TOPROL XL) 50 mg 24 hr tablet Take 1 tablet by mouth once daily. cyanocobalamin (VITAMIN B-12) 100 mcg tab Take 100 mcg by mouth once daily. aspirin, enteric coated (ASPIRIN, ENTERIC COATED) 81 mg EC tablet Take 81 mg by mouth once daily. Take one tablet daily fluticasone (FLONASE ALLERGY RELIEF) 50 mcg/actuation nasal spray Use 2 Sprays in each nostril once daily. (Patient not taking: Reported on 07/14/2024) No current facility-administered medications for this visit. Allergies: Penicillin G and Zoloft [Sertraline Hcl] ROS: General (negative for fatigue, malaise, weight loss/gain) HEENT (negative for headache, earache, recent vision changes, sinus pain, sore throat) Respiratory (no recent shortness of breath, hemoptysis) CV (negative for chest tightness, palpitations) Musculoskeletal (see HPI) Psych (no depression, anxiety) This note was partially generated using [employer] voice recognition system, and there may be some incorrect words, spellings, and punctuation that were not noted in checking the note before saving. 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 Took the pain completely away for 4 days. Taking Tylenol as needed for the pain. CMC brace is uncomfortable. documented in this encounter [facility] 07-14-2024 Note HNO ID: [id number] Author: MARY RAND LPN Service: ? Author Type: LICENSED NURSE Type: Progress Notes Filed: 07/14/2024 09:07 Note Text: AMB ROOMING INTAKE FLOWSHEET DATA Patient presents with: Left Foot - Established Patient, Follow Up, nail care Right Foot - Established Patient, Follow Up, nail care Mary Rand LPN [facility] 07-14-2024 Note HNO ID: [id number] Author: RADHA DEE MA Service: ? 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 Took the pain completely away for 4 days. Taking Tylenol as needed for the pain. CMC brace is uncomfortable. [facility] 06-11-2024 History of Present illness Narrative Program_ID:[id number] Access Code: [email or web address] URL: [email or web address] Date: 06-11-2024 Prepared By: Tereso Balbuena Program Notes Exercises - Sit to Stand Without Arm Support - 2 x daily - 4-5 x weekly - 2-3 sets - 10-15 reps - Step Up - 2 x daily - 4-5 x weekly - 2-3 sets - 10-15 reps - Side Stepping with Resistance at Ankles and Counter Support - 2 x daily - 4-5 x weekly - 2 sets - reps - Standing Hip Abduction with Resistance at Ankles and Counter Support - 2 x daily - 4-5 x weekly - 2 sets - 8-12 reps - Standing March with Counter Support - 2 x daily - 4-5 x weekly - 2 sets - 10-15 reps - Heel Toe Raises with Counter Support - 2 x daily - 4-5 x weekly - 2-3 sets - 10-15 reps Images from the original note were not included. Episode Visit Count: 9 Therapist That Will Accept/Oversee The Plan Of Care: Tereso Balbuena PT. Start of Care Date: 05/05/24 Onset Date: 05/06/23 Plan of Care Certification Date: 05/05/24 Next Certification Due Date: 06/13/24 Patient Identified by Name and Date of : Yes REHABILITATION AND SPORTS THERAPY PHYSICAL THERAPY DISCONTINUANCE OF CARE PLAN OF CARE UPDATE: Assessment: Andrew Peraza MD is discontinued from Physical Therapy services due to goal achievement.. Patient was seen for 9 visits from Start of Care Date: 05/05/24 to 06/11/2024 and treatment included: Therapeutic exercise and Neuromuscular re-education. Updated: 06/11/24 Goals for Episode of Care: established 05/05/24 Patient will report no falls. (Goal Met) [place] in home exercise program. (Goal Met) Patient will Improve Timed Up and Go to <9 seconds to demonstrate decreased risk of falling. (Goal Met) Patient will improve 5 time sit to stand to demonstrate improvement in functional lower extremity strength. (Goal Met) Patient will increase balance to 10 seconds for single limb stance on RLE and >5 seconds for single limb stance on LLE . (Goal Met) Patient to demonstrate appropriate balance strategies to reduce risk for falls. (Goal Met) Improve performance on 4 Stage Balance Test to >8sec tandem to reflect decreased fall risk. (Goal Met) Improve B Hip Flexion & ABD strength to 5/5 MMT. (Goal Met) Patient Goals: Get up on a stair or small step ladder and take something down without unsteadiness. Complete basement stairs while carrying objects. (States these have improved). SUBJECTIVE: Patient reports about the same overall, not consistent progress. States he has good days and bad. Hasn't found much he can't do, however he doesn't do as much as he use to. No falls overall. Thinks his awareness is better to get up slowly and keep his bearings. Pain: Pain Pain Level: 0 PROMIS Scales 06/11/2024 05/22/2024 05/05/2024 Higher is Better Self-Eff Symptom - T Score 45 (Average) Self-Eff Symptom - Percentile 31 Mobility - T Score 50 (within normal limits) 45 (within normal limits) 44 (mild dysfunction) Mobility - Percentile 50 31 27 Proxy-reported 02/09/2021 Lower is Better Pain Interference - T Score 56 (mild) Pain Interference - Percentile 27 T-scores: mean of general population = 50. 5 points is clinically meaningfully difference Percentiles provide an indication of how the patient's score ranks in relation to the general population. Higher percentile rankings indicate better function/quality of life. 50th percentile is the average of the general population and indicates half of respondents had a worse score. OBJECTIVE MEASURES WITH LEVEL OF FUNCTION: LE Strength R Hip Flexion (L2): 5/5 R Hip ABduction: 5/5 L Hip Flexion (L2): 5/5 L Hip ABduction: 5/5 Mobility Rolling: Independent Supine To Sit: Independent Sit to Supine: Independent Sit To Stand: Independent Stand To Sit: Independent Gait Gait Observation: WNL Stairs: Reciprocal up & down without rails. Good control Functional Performance Test Results Assistive Device: None 30 Second Chair Stand Test: 13 reps (13.5) 5 Times Sit to Stand Test : 9.51 sec Timed Up and Go (sec): 7.86 sec 4 Stage Balance Test Narrow base of support (sec): 30 sec (Eyes Closed) Semi-tandem base of support (sec): 10 sec (EYEs closed, shaky, 1 imbalance at 6.5 sec with R foot back, 10 sec 2nd rep.) Tandem base of support (sec): 30 sec (R Foot FWD: 30sec, L Foot FWD: 27 sec (loss COG att 22, was able to maintain till 27 sec before losing MACHO).) Single leg stance - right (sec): 10 sec Single leg stance - left (sec): 6 sec Dynamic Gait Index Gait level surface : 3 - Normal- walks 20' no assist device, good speed, no imbalance, normal gait pattern Change in gait speed: 3 - Normal- able to smoothly change walking speed without loss of balance or gait deivations. Shows significant difference in walking speeds Gait and horizontal head turns: 2 - Mild impairment- performs R/L head turns smoothly with slight change in gait velocity, minor disruption to smooth gait path or uses assistive device (Difficulty with neck motion > balance.) Gait and vertical head turns: 2 - Mild impairment- performs up/ down head turns smoothly with slight change in gait velocity, minor disruption to smooth gait path or uses assistive device (Difficulty with neck motion > balance.) Gait and pivot: 3 - Normal- pivot turn safely within 3 sec, stops quickly, no loss of balance Step over obstacle: 3 - Normal- is able to step over box without changing speed, no evidence of imbalance Step around obstacle: 3 - Normal- able to walk around cones safely without changing gait speed, no evidence of imbalance Steps: 3 - Normal- alternating feet, no rail Dynamic Gait Index Total: 22 TREATMENT: Therapeutic Exercise: 1: Re-assessment + objectives taken & discussion on patients progress. Goals assessed. 2: Sci-Fit: x5 Min [place] for CV endurance. Level 4.0 (Direct 1:1 & subjective taken.) 3: HEP was reviewed and the patient was instructed to continue with HEP to tolerance. Prioritized exercises with patient based on questions. 4: Discussed and advocated for active lifestyle and walking program. 5: Discussed with patient exam findings and overall observable improvements throughout POC. Skilled Intervention: Patient was educated in proper exercise technique and purpose for exercises. Reviewed and educated patient on additions/changes for home exercise program as above (*). Skilled judgment was used in selection of appropriate interventions. Provided written instruction for home exercise program to facilitate proper performance and compliance. Correct performance of therapeutic exercises was facilitated with verbal cuing. Patient education as noted. Billing Therapeutic Exercise Treatment Minutes: 38 Skilled Treatment Time Minutes (timed and untimed codes): 38 Total Session Time (minutes): 38 Session Start Time : 913 Session Stop Time : 951 Tereso Balbuena PT documented in this encounter [facility] 06-11-2024 Note HNO ID: [id number] Author: TERESO BALBUENA PT Service: ? Author Type: Physical Therapist Type: Progress Notes Filed: 06/11/2024 09:57 Note Text: Episode Visit Count: 9 Therapist That Will Accept/Oversee The Plan Of Care: Tereso Balbuena PT. Start of Care Date: 05/05/24 Onset Date: 05/06/23 Plan of Care Certification Date: 05/05/24 Next Certification Due Date: 06/13/24 Patient Identified by Name and Date of : Yes REHABILITATION AND SPORTS THERAPY PHYSICAL THERAPY DISCONTINUANCE OF CARE PLAN OF CARE UPDATE: Assessment: Andrew Peraza MD is discontinued from Physical Therapy services due to goal achievement.. Patient was seen for 9 visits from Start of Care Date: 05/05/24 to 06/11/2024 and treatment included: Therapeutic exercise and Neuromuscular re-education. Updated: 06/11/24 Goals for Episode of Care: established 05/05/24 Patient will report no falls. (Goal Met) [place] in home exercise program. (Goal Met) Patient will Improve Timed Up and Go to <9 seconds to demonstrate decreased risk of falling. (Goal Met) Patient will improve 5 time sit to stand to demonstrate improvement in functional lower extremity strength. (Goal Met) Patient will increase balance to 10 seconds for single limb stance on RLE and >5 seconds for single limb stance on LLE . (Goal Met) Patient to demonstrate appropriate balance strategies to reduce risk for falls. (Goal Met) Improve performance on 4 Stage Balance Test to >8sec tandem to reflect decreased fall risk. (Goal Met) Improve B Hip Flexion AND ABD strength to 5/5 MMT. (Goal Met) Patient Goals: Get up on a stair or small step ladder and take something down without unsteadiness. Complete basement stairs while carrying objects. (States these have improved). SUBJECTIVE: Patient reports about the same overall, not consistent progress. States he has good days and bad. Hasn't found much he can't do, however he doesn't do as much as he use to. No falls overall. Thinks his awareness is better to get up slowly and keep his bearings. Pain: Pain Pain Level: 0 PROMIS Scales 06/11/2024 05/22/2024 05/05/2024 Higher is Better Self-Eff Symptom - T Score 45 (Average) Self-Eff Symptom - Percentile 31 Mobility - T Score 50 (within normal limits) 45 (within normal limits) 44 (mild dysfunction) Mobility - Percentile 50 31 27 Proxy-reported 02/09/2021 Lower is Better Pain Interference - T Score 56 (mild) Pain Interference - Percentile 27 T-scores: mean of general population = 50. 5 points is clinically meaningfully difference Percentiles provide an indication of how the patient's score ranks in relation to the general population. Higher percentile rankings indicate better function/quality of life. 50th percentile is the average of the general population and indicates half of respondents had a worse score. OBJECTIVE MEASURES WITH LEVEL OF FUNCTION: LE Strength R Hip Flexion (L2): 5/5 R Hip ABduction: 5/5 L Hip Flexion (L2): 5/5 L Hip ABduction: 5/5 Mobility Rolling: Independent Supine To Sit: Independent Sit to Supine: Independent Sit To Stand: Independent Stand To Sit: Independent Gait Gait Observation: WNL Stairs: Reciprocal up AND down without rails. Good control Functional Performance Test Results Assistive Device: None 30 Second Chair Stand Test: 13 reps (13.5) 5 Times Sit to Stand Test : 9.51 sec Timed Up and Go (sec): 7.86 sec 4 Stage Balance Test Narrow base of support (sec): 30 sec (Eyes Closed) Semi-tandem base of support (sec): 10 sec (EYEs closed, shaky, 1 imbalance at 6.5 sec with R foot back, 10 sec 2nd rep.) Tandem base of support (sec): 30 sec (R Foot FWD: 30sec, L Foot FWD: 27 sec (loss COG att 22, was able to maintain till 27 sec before losing MACHO).) Single leg stance - right (sec): 10 sec Single leg stance - left (sec): 6 sec Dynamic Gait Index Gait level surface : 3 - Normal- walks 20' no assist device, good speed, no imbalance, normal gait pattern Change in gait speed: 3 - Normal- able to smoothly change walking speed without loss of balance or gait deivations. Shows significant difference in walking speeds Gait and horizontal head turns: 2 - Mild impairment- performs R/L head turns smoothly with slight change in gait velocity, minor disruption to smooth gait path or uses assistive device (Difficulty with neck motion > balance.) Gait and vertical head turns: 2 - Mild impairment- performs up/ down head turns smoothly with slight change in gait velocity, minor disruption to smooth gait path or uses assistive device (Difficulty with neck motion > balance.) Gait and pivot: 3 - Normal- pivot turn safely within 3 sec, stops quickly, no loss of balance Step over obstacle: 3 - Normal- is able to step over box without changing speed, no evidence of imbalance Step around obstacle: 3 - Normal- able to walk around cones safely without changing gait speed, no evidence of imba (more content not included)... [facility] 06-09-2024 Note HNO ID: [id number] Author: TERESO BALBUENA PT Service: ? Author Type: Physical Therapist Type: Progress Notes Filed: 06/09/2024 15:50 Note Text: Episode Visit Count: 8 Therapist That Will Accept/Oversee The Plan Of Care: Tereso Balbuena PT. 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 He demonstrated improvements in decreased need for UE support with balance exercises. The patient will continue to benefit from ongoing skilled physical therapy to progress toward set goals. PLAN FOR NEXT VISIT: [place] SUBJECTIVE: Pt reports that he is feeling pretty good today. Pt states that over the weekend he felt a little more unsteady. Pain: Pain Pain Level: 0 OBJECTIVE MEASURES WITH LEVEL OF FUNCTION: Improved confidence with balance exercises TREATMENT: Therapeutic Exercise: 1: Sci-Fit: x5 Min RAGSDALE for CV endurance. Level 2.5 (Direct 1:1 AND subjective taken.) 2: Cig-lw-xyaqr Justin Table: 3x10, 15#. 3: Calf Raises: 3x20. 4: Toe Raises: 3x20. Skilled Intervention: Patient was educated in proper exercise technique and purpose for exercises. Skilled judgment was used in selection of appropriate interventions. Correct performance of therapeutic exercises was facilitated with verbal and visual cuing. Neuromuscular Re-Education: 1: BOSU alt toe taps 2x15 B 2: BOSU step ups with 1 UE support with leading with LLE, no UE support with leading with RLE 2x10 B 3: Lateral Airex Stepups: 2x10 each way. Skilled Intervention: Skilled judgment used to assess appropriate program for balance and coordination activity. Ensured patient safety with use of gait belt. Billing Therapeutic Exercise Treatment Minutes: 19 Neuromuscular Re-Education Treatment Minutes: 23 Skilled Treatment Time Minutes (timed and untimed codes): 42 Total Session Time (minutes): 42 Session Start Time : 0930 Session Stop Time : 1012 Irene Todd, DINA Balbuena, PT, DPT. [facility] 06-09-2024 History of Present illness Narrative Episode Visit Count: 8 Therapist That Will Accept/Oversee The Plan Of Care: Tereso Balbuena PT. 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 He demonstrated improvements in decreased need for UE support with balance exercises. The patient will continue to benefit from ongoing skilled physical therapy to progress toward set goals. PLAN FOR NEXT VISIT: [place] SUBJECTIVE: Pt reports that he is feeling pretty good today. Pt states that over the weekend he felt a little more unsteady. Pain: Pain Pain Level: 0 OBJECTIVE MEASURES WITH LEVEL OF FUNCTION: Improved confidence with balance exercises TREATMENT: Therapeutic Exercise: 1: Sci-Fit: x5 Min RAGSDALE for CV endurance. Level 2.5 (Direct 1:1 & subjective taken.) 2: Ysa-em-eofra Justin Table: 3x10, 15#. 3: Calf Raises: 3x20. 4: Toe Raises: 3x20. Skilled Intervention: Patient was educated in proper exercise technique and purpose for exercises. Skilled judgment was used in selection of appropriate interventions. Correct performance of therapeutic exercises was facilitated with verbal and visual cuing. Neuromuscular Re-Education: 1: BOSU alt toe taps 2x15 B 2: BOSU step ups with 1 UE support with leading with LLE, no UE support with leading with RLE 2x10 B 3: Lateral Airex Stepups: 2x10 each way. Skilled Intervention: Skilled judgment used to assess appropriate program for balance and coordination activity. Ensured patient safety with use of gait belt. Billing Therapeutic Exercise Treatment Minutes: 19 Neuromuscular Re-Education Treatment Minutes: 23 Skilled Treatment Time Minutes (timed and untimed codes): 42 Total Session Time (minutes): 42 Session Start Time : 929 Session Stop Time : 101 DINA Sheets, PT, DPT. documented in this encounter [facility] 05-29-2024 Note HNO ID: [id number] Author: TERESO BALBUENA PT Service: ? Author Type: Physical Therapist Type: Progress Notes Filed: 05/29/2024 11:30 Note Text: Episode Visit Count: 7 Therapist That Will Accept/Oversee The Plan Of Care: Tereso Balbuena PT. 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 He demonstrated improvements in rocker board balancing. The patient will continue to benefit from ongoing skilled physical therapy to progress toward set goals. PLAN FOR NEXT VISIT: Continue with dynamic balance on uneven surfaces. SUBJECTIVE: No pain or anything new overall. [place] discouraged with foam beam walking. Off next week due to daughter coming to town. Pain: Pain Pain Level: 0 OBJECTIVE MEASURES WITH LEVEL OF FUNCTION: Able to navigate/step up onto the rocker board without issue or need of assistance. TREATMENT: Therapeutic Exercise: 1: Sci-Fit: x5 Min RAGSDALE for CV endurance. Level 2.0 (Direct 1:1 AND subjective taken.) 2: Zeo-tk-mjnjh Justin Table: 3x10, 15#. 3: Lateral Hoist Walks: 1x8 each way, 1 plate. 4: *Calf Raises: 3x20. 5: *Toe Raises: 3x20. 6: *Forward step ups 6inch: x10 each. Skilled Intervention: Patient was educated in proper exercise technique and purpose for exercises. Reviewed and educated patient on additions/changes for home exercise program as above (*). Skilled judgment was used in selection of appropriate interventions. Provided written instruction for home exercise program to facilitate proper performance and compliance. Correct performance of therapeutic exercises was facilitated with verbal and tactile cuing. Neuromuscular Re-Education: 1: Lateral Airex Stepups: 2x10 each way. 2: Rocker board balancing 6x10 seconds out in the open. No intermittent taps. CGA to Min-A. 3: Rocker board front to back taps x20 each 4: Rocker Board, Qitx-xr-htcif taps with feet straddling middle: 3x15 each side. Skilled Intervention: Skilled judgment used to assess appropriate program for balance and coordination activity. Ensured patient safety with use of gait belt and supervision/CGA/Min-A. Billing Therapeutic Exercise Treatment Minutes: 28 Neuromuscular Re-Education Treatment Minutes: 16 Skilled Treatment Time Minutes (timed and untimed codes): 42 Total Session Time (minutes): 42 Session Start Time : 1045 Session Stop Time : 1127 Tereso Balbuena PT [facility] 05-27-2024 Telephone encounter Note The following approved medication requests have been transmitted electronically. Requested Prescriptions Signed Prescriptions Disp Refills lisinopril (ZESTRIL) 20 mg tablet 90 tablet 3 Sig: Take 1 tablet by mouth once daily. Authorizing Provider: ROSS BLANDON omeprazole (PRILOSEC) 20 mg capsule 90 capsule 1 Sig: Take 1 capsule by mouth once daily on an empty stomach. Authorizing Provider: ROSS BLANDON MD [facility] 05-27-2024 Miscellaneous Notes The following approved medication requests have been transmitted electronically. Requested Prescriptions Signed Prescriptions Disp Refills lisinopril (ZESTRIL) 20 mg tablet 90 tablet 3 Sig: Take 1 tablet by mouth once daily. Authorizing Provider: ROSS BLANDON omeprazole (PRILOSEC) 20 mg capsule 90 capsule 1 Sig: Take 1 capsule by mouth once daily on an empty stomach. Authorizing Provider: ROSS BLANDON MD Patient requesting scripts to be renewed despite possible slight remainders on some scripts. States he wanted them all renewed together. Metoprolol was recently renewed, so this is not pended. Pended the 2 other medications per patient request. The patient has been identified by name and date of : Yes Caregiver verified no other encounters exist for this prescription request: Yes Caregiver confirmed with patient/requestor that no other refills are due, in the near future, with this provider at this time: Yes The last office visit in the department: 04/22/2024 Does the patient have a future office visit with this provider/department: Yes 04/22/2025 Requested Prescriptions Pending Prescriptions Disp Refills lisinopril (ZESTRIL) 20 mg tablet 90 tablet 3 Sig: Take 1 tablet by mouth once daily. omeprazole (PRILOSEC) 20 mg capsule 90 capsule 1 Sig: Take 1 capsule by mouth once daily on an empty stomach. Bre Pérez RN documented in this encounter [facility] 05-27-2024 Note HNO ID: [id number] Author: TERESO BALBUENA PT Service: ? Author Type: Physical Therapist Type: Progress Notes Filed: 05/27/2024 10:18 Note Text: Episode Visit Count: 6 Therapist That Will Accept/Oversee The Plan Of Care: Tereso Balbuena PT. 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 He demonstrated difficulty with alt toe taps on BOSU. The patient will continue to benefit from ongoing skilled physical therapy to progress toward set goals. PLAN FOR NEXT VISIT: Continue with dynamic balance on uneven surfaces. SUBJECTIVE: Pt reports that he is doing well today. Pain: Pain Pain Level: 0 Post Treatment Pain Post Treatment Pain Level: 0 Post Treatment Symptoms: Pt stated that his legs were fatigued at end of session. OBJECTIVE MEASURES WITH LEVEL OF FUNCTION: Increased retro-lean with L forward step ups on BOSU. TREATMENT: Therapeutic Exercise: 1: Sci-Fit: x5 Min RAGSDALE for CV endurance. Level 2.0 (Direct 1:1 AND subjective taken.) 2: Gbb-zf-ifxdv Justin Table: 3x10, 15#. Skilled Intervention: Patient was educated in proper exercise technique and purpose for exercises. Skilled judgment was used in selection of appropriate interventions. Correct performance of therapeutic exercises was facilitated with verbal and visual cuing. Neuromuscular Re-Education: 1: Rocker board side to side x 20 taps 2: Rocker board balancing 2x30 seconds with intermittent taps on // bars 3: Rocker board front to back taps x20 each 4: Rocker board balance front to back 2x30 seconds 5: Ball toss into BOSU: x5 normal MACHO, x 5 NBOS, 2x10 on foam 6: Alt toe taps on BOSU 2x10 B 7: BOSU step ups with 1 UE support 2x10 B 8: Lateral step ups on BOUS 2x10 B with BUE support Skilled Intervention: Skilled judgment used to assess appropriate program for balance and coordination activity. Ensured patient safety with use of gait belt. Billing Therapeutic Exercise Treatment Minutes: 12 Neuromuscular Re-Education Treatment Minutes: 36 Skilled Treatment Time Minutes (timed and untimed codes): 48 Total Session Time (minutes): 48 Session Start Time : 913 Session Stop Time : 1001 Irene Tdod, DINA Balbuena, PT, DPT. [facility] 05-27-2024 History of Present illness Narrative Episode Visit Count: 6 Therapist That Will Accept/Oversee The Plan Of Care: Tereso Balbuena PT. 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 He demonstrated difficulty with alt toe taps on BOSU. The patient will continue to benefit from ongoing skilled physical therapy to progress toward set goals. PLAN FOR NEXT VISIT: Continue with dynamic balance on uneven surfaces. SUBJECTIVE: Pt reports that he is doing well today. Pain: Pain Pain Level: 0 Post Treatment Pain Post Treatment Pain Level: 0 Post Treatment Symptoms: Pt stated that his legs were fatigued at end of session. OBJECTIVE MEASURES WITH LEVEL OF FUNCTION: Increased retro-lean with L forward step ups on BOSU. TREATMENT: Therapeutic Exercise: 1: Sci-Fit: x5 Min RAGSDALE for CV endurance. Level 2.0 (Direct 1:1 & subjective taken.) 2: Ety-rc-fpljx Justin Table: 3x10, 15#. Skilled Intervention: Patient was educated in proper exercise technique and purpose for exercises. Skilled judgment was used in selection of appropriate interventions. Correct performance of therapeutic exercises was facilitated with verbal and visual cuing. Neuromuscular Re-Education: 1: Rocker board side to side x 20 taps 2: Rocker board balancing 2x30 seconds with intermittent taps on // bars 3: Rocker board front to back taps x20 each 4: Rocker board balance front to back 2x30 seconds 5: Ball toss into BOSU: x5 normal MACHO, x 5 NBOS, 2x10 on foam 6: Alt toe taps on BOSU 2x10 B 7: BOSU step ups with 1 UE support 2x10 B 8: Lateral step ups on BOUS 2x10 B with BUE support Skilled Intervention: Skilled judgment used to assess appropriate program for balance and coordination activity. Ensured patient safety with use of gait belt. Billing Therapeutic Exercise Treatment Minutes: 12 Neuromuscular Re-Education Treatment Minutes: 36 Skilled Treatment Time Minutes (timed and untimed codes): 48 Total Session Time (minutes): 48 Session Start Time : 913 Session Stop Time : 1001 Irene Todd, DINA Balbuena PT, DPT. documented in this encounter [facility] 05-27-2024 Telephone encounter Note Patient requesting scripts to be renewed despite possible slight remainders on some scripts. States he wanted them all renewed together. Metoprolol was recently renewed, so this is not pended. Pended the 2 other medications per patient request. The patient has been identified by name and date of : Yes Caregiver verified no other encounters exist for this prescription request: Yes Caregiver confirmed with patient/requestor that no other refills are due, in the near future, with this provider at this time: Yes The last office visit in the department: 04/22/2024 Does the patient have a future office visit with this provider/department: Yes 04/22/2025 Requested Prescriptions Pending Prescriptions Disp Refills lisinopril (ZESTRIL) 20 mg tablet 90 tablet 3 Sig: Take 1 tablet by mouth once daily. omeprazole (PRILOSEC) 20 mg capsule 90 capsule 1 Sig: Take 1 capsule by mouth once daily on an empty stomach. Bre Pérez RN [facility] 05-26-2024 Telephone encounter Note Prescription Refill Information The patient has been identified by name and date of : Yes Caregiver verified no other encounters exist for this prescription request: Yes Caregiver confirmed with patient/requestor that no other refills are due, in the near future, with this provider at this time: Yes The last office visit in the department: 04/2024 Does the patient have a future office visit with this provider/department: Yes Requested Prescriptions Pending Prescriptions Disp Refills metoprolol succinate ER (TOPROL XL) 50 mg 24 hr tablet 90 tablet 1 Sig: Take 1 tablet by mouth once daily. Domitila Maldonado MA May 26, 2024 1:58 PM [facility] 05-26-2024 Miscellaneous Notes Prescription Refill Information The patient has been identified by name and date of : Yes Caregiver verified no other encounters exist for this prescription request: Yes Caregiver confirmed with patient/requestor that no other refills are due, in the near future, with this provider at this time: Yes The last office visit in the department: 04/2024 Does the patient have a future office visit with this provider/department: Yes Requested Prescriptions Pending Prescriptions Disp Refills metoprolol succinate ER (TOPROL XL) 50 mg 24 hr tablet 90 tablet 1 Sig: Take 1 tablet by mouth once daily. Domitila Maldonado MA May 26, 2024 1:58 PM documented in this encounter [facility] 05-22-2024 Note HNO ID: [id number] Author: TERESO BALBUENA PT Service: ? Author Type: Physical Therapist Type: Progress Notes Filed: 05/22/2024 11:29 Note Text: Episode Visit Count: 5 Therapist That Will Accept/Oversee The Plan Of Care: Tereso Balbuena PT. 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 He demonstrated challenged by increased balance activity. The patient will continue to benefit from ongoing skilled physical therapy to progress toward set goals. PLAN FOR NEXT VISIT: Rocker Board; Ball Toss on Foam SUBJECTIVE: Reports he a did a walk the next day following his last visit and he felt pain initially 1/4 into his mile walk; does not know if it was from the session or it being his first mile walk of the spring. Went away quickly when he returned home to rest, Pain: Pain Pain Level: 0 Post Treatment Pain Post Treatment Pain Level: 0 OBJECTIVE MEASURES WITH LEVEL OF FUNCTION: Increased trouble during tandem walk on foam with L Limb advancement/single stance on r side. TREATMENT: Therapeutic Exercise: 1: Sci-Fit: x5 Min RAGSDALE for CV endurance. Level 2.0 (Direct 1:1 AND subjective taken.) 2: Pkt-qi-jxlty Justin Table: 3x12, 15#. Skilled Intervention: Patient was educated in proper exercise technique and purpose for exercises. Skilled judgment was used in selection of appropriate interventions. Correct performance of therapeutic exercises was facilitated with verbal cuing. Neuromuscular Re-Education: 1: Tandem Walking on Ground: 3 Laps of 12 Feet. 2: Retro Walking on Ground: 3 Laps of 12 Feet. 3: Lateral Stepping on Foam Airex Beams: 2 Sets of 2 Laps down and back: Increased difficulty with static standing on it today, has several backward misteps due to too much posterior weight shifts. CGA. 4: Fwd/Bwd Step Overs wood plank: 3x12. 2-3 misteps requiring min-A to regain balance. 5: Tandem walking on foam x 2 Laps. 2-3x requiring min-A to maintain balance. Skilled Intervention: Skilled judgment used to assess appropriate program for balance and coordination activity. Ensured patient safety with use of SBA, CGA to Min-A. AND Gait Belt. Billing Therapeutic Exercise Treatment Minutes: 10 Neuromuscular Re-Education Treatment Minutes: 29 Skilled Treatment Time Minutes (timed and untimed codes): 39 Total Session Time (minutes): 39 Session Start Time : 1045 Session Stop Time : 1124 Tereso Balbuena, PT [facility] 05-22-2024 History of Present illness Narrative Episode Visit Count: 5 Therapist That Will Accept/Oversee The Plan Of Care: Tereso Balbuena PT. 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 He demonstrated challenged by increased balance activity. The patient will continue to benefit from ongoing skilled physical therapy to progress toward set goals. PLAN FOR NEXT VISIT: Rocker Board; Ball Toss on Foam SUBJECTIVE: Reports he a did a walk the next day following his last visit and he felt pain initially 1/4 into his mile walk; does not know if it was from the session or it being his first mile walk of the spring. Went away quickly when he returned home to rest, Pain: Pain Pain Level: 0 Post Treatment Pain Post Treatment Pain Level: 0 OBJECTIVE MEASURES WITH LEVEL OF FUNCTION: Increased trouble during tandem walk on foam with L Limb advancement/single stance on r side. TREATMENT: Therapeutic Exercise: 1: Sci-Fit: x5 Min RAGSDALE for CV endurance. Level 2.0 (Direct 1:1 & subjective taken.) 2: Dvi-zq-[id number] Justin Table: 3x12, 15#. Skilled Intervention: Patient was educated in proper exercise technique and purpose for exercises. Skilled judgment was used in selection of appropriate interventions. Correct performance of therapeutic exercises was facilitated with verbal cuing. Neuromuscular Re-Education: 1: Tandem Walking on Ground: 3 Laps of 12 Feet. 2: Retro Walking on Ground: 3 Laps of 12 Feet. 3: Lateral Stepping on Foam Airex Beams: 2 Sets of 2 Laps down and back: Increased difficulty with static standing on it today, has several backward misteps due to too much posterior weight shifts. CGA. 4: Fwd/Bwd Step Overs wood plank: 3x12. 2-3 misteps requiring min-A to regain balance. 5: Tandem walking on foam x 2 Laps. 2-3x requiring min-A to maintain balance. Skilled Intervention: Skilled judgment used to assess appropriate program for balance and coordination activity. Ensured patient safety with use of SBA, CGA to Min-A. & Gait Belt. Billing Therapeutic Exercise Treatment Minutes: 10 Neuromuscular Re-Education Treatment Minutes: 29 Skilled Treatment Time Minutes (timed and untimed codes): 39 Total Session Time (minutes): 39 Session Start Time : 1045 Session Stop Time : 1124 Tereso Balbuena PT documented in this encounter [facility] 05-20-2024 Note HNO ID: [id number] Author: TERESO BALBUENA PT Service: ? Author Type: Physical Therapist Type: Progress Notes Filed: 05/20/2024 10:19 Note Text: Episode Visit Count: 4 Therapist That Will Accept/Oversee The Plan Of Care: Tereso Balbuena PT. 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 He demonstrated improvements in tolerance to balance on unsteady surfaces. The patient will continue to benefit from ongoing skilled physical therapy to progress toward set goals. PLAN FOR NEXT VISIT: Work on turns with walking and standing up fast with directional change SUBJECTIVE: Pt states that he is feeling alright today. Pt denies any falls. Pain: Pain Pain Level: 0 OBJECTIVE MEASURES WITH LEVEL OF FUNCTION: Challenged with sidestepping on foam TREATMENT: Therapeutic Exercise: 1: Sci-Fit: x5 Min RAGSDALE for CV endurance. Level 2.0 (Direct 1:1 AND subjective taken. Pt stood up quick from stepper and had 1 bout of LOB,Mod A provided .) 2: Forward step ups on BOSU ball 2x10 B 3: Lateral step ups on BOSU 2x10 B 4: Izh-bh-kesbp 10# goblet holds.: 3x8. justin chair. Skilled Intervention: Patient was educated in proper exercise technique and purpose for exercises. Skilled judgment was used in selection of appropriate interventions. Correct performance of therapeutic exercises was facilitated with verbal and visual cuing. Neuromuscular Re-Education: 1: Airex, EC, Feet Together: 3x30. (1 bout LOB on 3rd round wiht Min A provided) 2: Tandem walking on foam x 4 rounds 3: Side stepping on foam beams x2 rounds each direction, increased difficulty going to the L Skilled Intervention: Skilled judgment used to assess appropriate program for balance and coordination activity. Ensured patient safety with use of gait belt. Billing Therapeutic Exercise Treatment Minutes: 21 Neuromuscular Re-Education Treatment Minutes: 25 Skilled Treatment Time Minutes (timed and untimed codes): 46 Total Session Time (minutes): 46 Session Start Time : 840 Session Stop Time : 926 Irene Todd, DINA Tereso Balbuena, PT, DPT. [facility] 05-20-2024 History of Present illness Narrative Episode Visit Count: 4 Therapist That Will Accept/Oversee The Plan Of Care: Tereso Balbuena PT. 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 He demonstrated improvements in tolerance to balance on unsteady surfaces. The patient will continue to benefit from ongoing skilled physical therapy to progress toward set goals. PLAN FOR NEXT VISIT: Work on turns with walking and standing up fast with directional change SUBJECTIVE: Pt states that he is feeling alright today. Pt denies any falls. Pain: Pain Pain Level: 0 OBJECTIVE MEASURES WITH LEVEL OF FUNCTION: Challenged with sidestepping on foam TREATMENT: Therapeutic Exercise: 1: Sci-Fit: x5 Min RAGSDALE for CV endurance. Level 2.0 (Direct 1:1 & subjective taken. Pt stood up quick from stepper and had 1 bout of LOB,Mod A provided .) 2: Forward step ups on BOSU ball 2x10 B 3: Lateral step ups on BOSU 2x10 B 4: Tca-cz-[id number] 10# goblet holds.: 3x8. justin chair. Skilled Intervention: Patient was educated in proper exercise technique and purpose for exercises. Skilled judgment was used in selection of appropriate interventions. Correct performance of therapeutic exercises was facilitated with verbal and visual cuing. Neuromuscular Re-Education: 1: Airex, EC, Feet Together: 3x30. (1 bout LOB on 3rd round wiht Min A provided) 2: Tandem walking on foam x 4 rounds 3: Side stepping on foam beams x2 rounds each direction, increased difficulty going to the L Skilled Intervention: Skilled judgment used to assess appropriate program for balance and coordination activity. Ensured patient safety with use of gait belt. Billing Therapeutic Exercise Treatment Minutes: 21 Neuromuscular Re-Education Treatment Minutes: 25 Skilled Treatment Time Minutes (timed and untimed codes): 46 Total Session Time (minutes): 46 Session Start Time : 840 Session Stop Time : 926 Irene Todd, [employer] Tereso Balbuena PT, DPT. documented in this encounter [facility] 05-14-2024 Note HNO ID: [id number] Author: TERESO BALBUENA PT Service: ? Author Type: Physical Therapist Type: Progress Notes Filed: 05/14/2024 12:44 Note Text: Episode Visit Count: 3 Therapist That Will Accept/Oversee The Plan Of Care: Tereso Balbuena PT. 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 He demonstrated difficulty with airex step-ups with toe clearance on trailing leg. The patient will continue to benefit from ongoing skilled physical therapy to progress toward set goals. PLAN FOR NEXT VISIT: Add to HEP; Dynamic Balance such as lateral walking on airex beams, airex step ups, etc. SUBJECTIVE: Reports walking outside more with the nicer weather. Goes for 20-30 min, thinks it is a half mile or so. Tired after last session but recovered following 1/2 a day. Pain: Pain Pain Level: 0 OBJECTIVE MEASURES WITH LEVEL OF FUNCTION: Fatigue from sci-fit. Less use of hands/fingers to feel like he needs to regain MACHO/COG during balance activities. TREATMENT: Therapeutic Exercise: 1: Sci-Fit: x5 Min RAGSDALE for CV endurance. Level 2.0 (Direct 1:1 AND subjective taken.) 2: 6-in FWD Arsenio: 2x10 each. 3: 6-in LAT Arsenio: 2x10 each. 4: Btm-pr-wewsm 10#goblet holds.: 3x8. justin chair. Skilled Intervention: Patient was educated in proper exercise technique and purpose for exercises. Skilled judgment was used in selection of appropriate interventions. Correct performance of therapeutic exercises was facilitated with verbal cuing. Neuromuscular Re-Education: 1: Airex, EC, Feet Together: 5x20. 2: Static, Ground, EO Tandem Stance: 6x20 each way[address] Light use of fingers for touch on // bars if needed. 3: Static, Airex, EC, Semi-Tandem Stance: 4x25 each. 4: Airex Step Ups: 2x10 each leg. Skilled Intervention: Skilled judgment used to assess appropriate program for balance and coordination activity. Ensured patient safety with use of gait belt and supervision. Billing Therapeutic Exercise Treatment Minutes: 24 Neuromuscular Re-Education Treatment Minutes: 16 Skilled Treatment Time Minutes (timed and untimed codes): 40 Total Session Time (minutes): 40 Session Start Time : 1130 Session Stop Time : 1210 Tereso Balbuena PT [facility] 05-14-2024 History of Present illness Narrative Episode Visit Count: 3 Therapist That Will Accept/Oversee The Plan Of Care: Tereso Balbuena PT. 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 He demonstrated difficulty with airex step-ups with toe clearance on trailing leg. The patient will continue to benefit from ongoing skilled physical therapy to progress toward set goals. PLAN FOR NEXT VISIT: Add to HEP; Dynamic Balance such as lateral walking on airex beams, airex step ups, etc. SUBJECTIVE: Reports walking outside more with the nicer weather. Goes for 20-30 min, thinks it is a half mile or so. Tired after last session but recovered following 1/2 a day. Pain: Pain Pain Level: 0 OBJECTIVE MEASURES WITH LEVEL OF FUNCTION: Fatigue from sci-fit. Less use of hands/fingers to feel like he needs to regain MACHO/COG during balance activities. TREATMENT: Therapeutic Exercise: 1: Sci-Fit: x5 Min RAGSDALE for CV endurance. Level 2.0 (Direct 1:1 & subjective taken.) 2: 6-in FWD Arsenio: 2x10 each. 3: 6-in LAT Arsenio: 2x10 each. 4: Luk-zx-pfcvt 10#goblet holds.: 3x8. justin chair. Skilled Intervention: Patient was educated in proper exercise technique and purpose for exercises. Skilled judgment was used in selection of appropriate interventions. Correct performance of therapeutic exercises was facilitated with verbal cuing. Neuromuscular Re-Education: 1: Airex, EC, Feet Together: 5x20. 2: Static, Ground, EO Tandem Stance: 6x[address] Light use of fingers for touch on // bars if needed. 3: Static, Airex, EC, Semi-Tandem Stance: 4x25 each. 4: Airex Step Ups: 2x10 each leg. Skilled Intervention: Skilled judgment used to assess appropriate program for balance and coordination activity. Ensured patient safety with use of gait belt and supervision. Billing Therapeutic Exercise Treatment Minutes: 24 Neuromuscular Re-Education Treatment Minutes: 16 Skilled Treatment Time Minutes (timed and untimed codes): 40 Total Session Time (minutes): 40 Session Start Time : 1130 Session Stop Time : 1210 Tereso Balbuena PT documented in this encounter [facility] 05-07-2024 Note HNO ID: [id number] Author: TERESO BALBUENA PT Service: ? Author Type: Physical Therapist Type: Progress Notes Filed: 05/07/2024 08:28 Note Text: Episode Visit Count: 2 Therapist That Will Accept/Oversee The Plan Of Care: Tereso Balbuena PT. 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 He demonstrated difficulty with stepping backward off step during step ups. . The patient will continue to benefit from ongoing skilled physical therapy to progress toward set goals. PLAN FOR NEXT VISIT: Fwd/Lateral Arsenio; Dynamic Balance Progressions. Goblet STS SUBJECTIVE: Reports the past day he was changing the filter in his furnance and he had to get down to put it in and couldn't get up off the ground. STates he eventually got up in two minutes and didn't have to call anyone to help. Reports no falls. Pain: Pain Pain Level: 0 OBJECTIVE MEASURES WITH LEVEL OF FUNCTION: Better in tandem with left forward/right back compared to vice versa. TREATMENT: Therapeutic Exercise: 1: Sci-Fit: x5 Min RAGSDALE for CV endurance. Level 3.0 (Direct 1:1 AND subjective taken.) 2: 6-in FWD Arsenio: 3x10 each. 3: Rxf-qi-[id number] without use of hands.: 3x10. (Green Table Lowest Height.) Skilled Intervention: Patient was educated in proper exercise technique and purpose for exercises. Skilled judgment was used in selection of appropriate interventions. Correct performance of therapeutic exercises was facilitated with verbal cuing. Neuromuscular Re-Education: 1: Static, Ground, EC Feet Together Balance: 5x30 with light pertubations. 2: Static, Ground, EO Tandem Stance: 6x[address] Light use of fingers for touch on // bars if needed. Skilled Intervention: Skilled judgment used to assess appropriate program for balance and coordination activity. Ensured patient safety with use of gait belt Billing Therapeutic Exercise Treatment Minutes: 25 Neuromuscular Re-Education Treatment Minutes: 15 Skilled Treatment Time Minutes (timed and untimed codes): 40 Total Session Time (minutes): 40 Session Start Time : 743 Session Stop Time : 823 Tereso Balbuena PT [facility] 05-07-2024 History of Present illness Narrative Episode Visit Count: 2 Therapist That Will Accept/Oversee The Plan Of Care: Tereso Balbuena PT. 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 He demonstrated difficulty with stepping backward off step during step ups. . The patient will continue to benefit from ongoing skilled physical therapy to progress toward set goals. PLAN FOR NEXT VISIT: Fwd/Lateral Arsenio; Dynamic Balance Progressions. Goblet STS SUBJECTIVE: Reports the past day he was changing the filter in his furnance and he had to get down to put it in and couldn't get up off the ground. STates he eventually got up in two minutes and didn't have to call anyone to help. Reports no falls. Pain: Pain Pain Level: 0 OBJECTIVE MEASURES WITH LEVEL OF FUNCTION: Better in tandem with left forward/right back compared to vice versa. TREATMENT: Therapeutic Exercise: 1: Sci-Fit: x5 Min RAGSDALE for CV endurance. Level 3.0 (Direct 1:1 & subjective taken.) 2: 6-in FWD Arsenio: 3x10 each. 3: Rvh-kf-mirhj without use of hands.: 3x10. (Green Table Lowest Height.) Skilled Intervention: Patient was educated in proper exercise technique and purpose for exercises. Skilled judgment was used in selection of appropriate interventions. Correct performance of therapeutic exercises was facilitated with verbal cuing. Neuromuscular Re-Education: 1: Static, Ground, EC Feet Together Balance: 5x30 with light pertubations. 2: Static, Ground, EO Tandem Stance: 6x[address] Light use of fingers for touch on // bars if needed. Skilled Intervention: Skilled judgment used to assess appropriate program for balance and coordination activity. Ensured patient safety with use of gait belt Billing Therapeutic Exercise Treatment Minutes: 25 Neuromuscular Re-Education Treatment Minutes: 15 Skilled Treatment Time Minutes (timed and untimed codes): 40 Total Session Time (minutes): 40 Session Start Time : 743 Session Stop Time : 823 Tereso Balbuena PT documented in this encounter [facility] 05-05-2024 History of Present illness Narrative Program_ID:[id number] Access Code: [email or web address] URL: [email or web address] Date: 05-05-2024 Prepared By: Tereso Balbuena Program Notes Exercises - Sit to Stand Without Arm Support - 2 x daily - 7 x weekly - 2-3 sets - 8-10 reps - Standing Hip Abduction with Resistance at Ankles and Counter Support - 2 x daily - 7 x weekly - 2 sets - 8-12 reps - Standing March with Counter Support - 2 x daily - 7 x weekly - 2 sets - 10-15 reps - Side Stepping with Resistance at Ankles and Counter Support - 2 x daily - 7 x weekly - 2 sets - reps Images from the original note were not included. Episode Visit Count: 1 Therapist That Will Accept/Oversee The Plan Of Care: Tereso Balbuena PT. 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 The patient presents with impairments in ADL's, gait, independence in exercise, overall function, and strength. Relatively good exam in regards to balance and gait for the 83-year old, however there are multiple areas of the exam that the patient could improve with structured PT for decreased progression of feeling of unsteadiness that has affected him for the past year. PROMIS (Patient-Reported Outcomes Measurement Information System) scores were reviewed and identified as within normal limits. Prognosis for therapy is Excellent due to: current objective clinical presentation, good overall health status .The patient will benefit from skilled therapy services to meet the goals established for this plan of care as noted below. Assessment Fall Risk : Active low risk Goals for Episode of Care: established 05/05/24 Patient will report no falls. [place] in home exercise program. Patient will Improve Timed Up and Go to <9 seconds to demonstrate decreased risk of falling. Patient will improve 5 time sit to stand to demonstrate improvement in functional lower extremity strength. Patient will increase balance to 10 seconds for single limb stance on RLE and >5 seconds for single limb stance on LLE . Patient to demonstrate appropriate balance strategies to reduce risk for falls. Improve performance on 4 Stage Balance Test to >8sec tandem to reflect decreased fall risk. Improve B Hip Flexion & ABD strength to 5/5 MMT Patient Goals: Get up on a stair or small step ladder and take something down without unsteadiness. Complete basement stairs while carrying objects. Time Frame for Goals and Treatment : 06/16/24 Planned Interventions, Frequency, and Duration: Current Frequency: 2x/week Duration: 4 weeks Total Number of Visits Planned: 8 Planned Treatment Interventions: Therapeutic exercise (16005), Neuromuscular re-education (01653), Manual therapy (18857), Therapeutic activities (56792), Self-fci management (74400), Patient/Family/Caregiver Education, Gait Training (68178) PLAN FOR NEXT VISIT: Challenge Balance; Dynamic Balance Activities. Patient demonstrates good understanding of plan of care and treatment. The above goals and plan of care were discussed and agreed upon by patient/family. SUBJECTIVE: Here for Balance & Gait. Went to see Dr. Blandon because he could tell his imbalance was getting worse. Has not had a fall. However, feels like he could at anytime. Does different activities slow per report. When getting on step stool, feels like he needs to have a ahnd on something for steadiness, unable to lift things to put away. 2 cats at home, states do not get under foot. No loose rugs. Lives alone. Never had to use an AD. Patient Goals: Get up on a stair or small step ladder and take something down without unsteadiness. Complete basement stairs while carrying objects. Functional Limitations: rising from a chair, stair negotiation, physical activities, lifting, heavy exertion Prior Level of Function: Independent without limitations Relevant History Past Relevant Medical Conditions: Comments Relevant Medical Conditions Comments: Hx of HTN, Hyperlipidemia, GERD, Prostate cancer, Insomnia, JOSE MIGUEL, colon adenoma, diverticulosis, Hx of BCC skin cancer and Melanoma of the skin, DDD lumbar with lumbar spinal stenosis Past Relevant Surgical Conditions: Total Knee Replacement-Right Right or Left Handed: (RLE Dominant) Employment: Retired Recreation / Current Exercise: No specific exercise. Will walk outside if nice out. Home Environment Patient Lives With: Self/Alone Assistance Available: PRN Home Type: [place] (Does go to basement, rail 1 side, 13 steps.) Entry To Home: Stairs, With Rail Tub/Shower Type: Walk-In, Grab Bars throughout Laundry: Completes. First floor Intake Information: Prescription present Previous Treatment: None Falls Interview: No positive findings with falls interview Falls History # of falls in past year: 0 # of falls resulting in an injury in past year: 0 Pain: Pain Pain Level: 0 Post Treatment Pain Post Treatment Pain Level: No Change PROMIS Scales 05/05/2024 02/09/2021 06/22/2019 Higher is Better Phys Func - T Score 48 (within normal limits) 41 (mild dysfunction) Phys Func - Percentile 42 18 Self-Eff Symptom - T Score 45 (Average) 50 (Average) Self-Eff Symptom - Percentile 31 50 Mobility - T Score 44 (mild dysfunction) Mobility - Percentile 27 Proxy-reported 02/09/2021 Lower is Better Pain Interference - T Score 56 (mild) Pain Interference - Percentile 27 T-scores: mean of general population = 50. 5 points is clinically meaningfully difference Percentiles provide an indication of how the patient's score ranks in relation to the general population. Higher percentile rankings indicate better function/quality of life. 50th percentile is the average of the general population and indicates half of respondents had a worse score. OBJECTIVE MEASURES WITH LEVEL OF FUNCTION: LE Strength R Hip Flexion (L2): 4+/5 R Hip ABduction: 4+/5 L Hip Flexion (L2): 4+/5 L Hip ABduction: 4+/5 Mobility Rolling: Independent Supine To Sit: Independent Sit to Supine: Independent Sit To Stand: Independent Stand To Sit: Independent Gait Gait Observation: Relatively normal; light decrease in LLE stance time compared to right. Stairs: Reciprocal up & down without rails. Descends quicker due to smalled decrease in body control. Functional Performance Test Results Assistive Device: None 30 Second Chair Stand Test: 14 reps 5 Times Sit to Stand Test : 9.5 sec Timed Up and Go (sec): 10.52 sec 4 Stage Balance Test Narrow base of support (sec): 10 sec (10 EO & EC) Semi-tandem base of support (sec): 10 sec (EO & EC (Slight imbalance EC).) Tandem base of support (sec): 2.5 sec (R Foot FWD) Single leg stance - right (sec): 8 sec Single leg stance - left (sec): 1.5 sec Dynamic Gait Index Gait level surface : 3 - Normal- walks 20' no assist device, good speed, no imbalance, normal gait pattern Change in gait speed: 3 - Normal- able to smoothly change walking speed without loss of balance or gait deivations. Shows significant difference in walking speeds Gait and horizontal head turns: 2 - Mild impairment- performs R/L head turns smoothly with slight change in gait velocity, minor disruption to smooth gait path or uses assistive device Gait and vertical head turns: 2 - Mild impairment- performs up/ down head turns smoothly with slight change in gait velocity, minor disruption to smooth gait path or uses assistive device Gait and pivot: 3 - Normal- pivot turn safely within 3 sec, stops quickly, no loss of balance Step over obstacle: 3 - Normal- is able to step over box without changing speed, no evidence of imbalance Step around obstacle: 3 - Normal- able to walk around cones safely without changing gait speed, no evidence of imbalance Steps: 3 - Normal- alternating feet, no rail Dynamic Gait Index Total: 22 Education: Education Learning Preferences: Demonstration, Explanation, Printed Materials Barriers: None Learning/educational needs: Home exercise program, Safety, Plan of Care, Health promotion Education Provided: Yes, see treatment interventions for education provided Education Provided To: Patient Education Mode/Type: Demonstration, Explanation/Discussion, Literature/Printed Materials Response to Education/Teach Back: States/Identifies TREATMENT: PT Treatment Interventions: Therapeutic Exercise Evaluation Therapeutic Exercise: 1: Reviewed HEP Exercises. PT provided demonstration and cueing of exercises for proper completion. Pt demonstrated understanding. 2: Discussed therapy goals, exercise purpose, HEP handout provided. Discussed exam findings and how therapy plans to improve patients confidence & performance in balance/gait . Discussed treatment options. 3: Educated on why balance exercises and activities are not completed at home, Encouraged active lifestyle & walking program. 4: *[id number]-qt-[id number] without use of hands.: x10. 5: *B Hip ABD in standing: x10 each, trialed pinktb, however regressed to no band for home currently. 6: *Standing Hip Alt March at counter: x15 each. 7: *Standing Lateral Walk at counter: 1 Lap of 10 feet, pinktb around ankles. Cues for no dragging feet. Skilled Intervention: Patient was educated in proper exercise technique and purpose for exercises. Reviewed and educated patient on additions/changes for home exercise program as above (*). Skilled judgment was used in selection of appropriate interventions. Provided written instruction for home exercise program to facilitate proper performance and compliance. Correct performance of therapeutic exercises was facilitated with verbal cuing. Patient education as noted. Billing * Evaluation Low Complexity: 1 Unit Therapeutic Exercise Treatment Minutes: 24 Skilled Treatment Time Minutes (timed and untimed codes): 47 Total Session Time (minutes): 47 Session Start Time : 957 Session Stop Time : 1044 Tereso Balbuena PT documented in this encounter [facility] 05-05-2024 Note HNO ID: [id number] Author: TERESO BALBUENA PT Service: ? Author Type: Physical Therapist Type: Progress Notes Filed: 05/05/2024 11:33 Note Text: Episode Visit Count: 1 Therapist That Will Accept/Oversee The Plan Of Care: Tereso Balbuena PT. 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 The patient presents with impairments in ADL's, gait, independence in exercise, overall function, and strength. Relatively good exam in regards to balance and gait for the 83-year old, however there are multiple areas of the exam that the patient could improve with structured PT for decreased progression of feeling of unsteadiness that has affected him for the past year. PROMIS? (Patient-Reported Outcomes Measurement Information System) scores were reviewed and identified as within normal limits. Prognosis for therapy is Excellent due to: current objective clinical presentation, good overall health status .The patient will benefit from skilled therapy services to meet the goals established for this plan of care as noted below. Assessment Fall Risk : Active low risk Goals for Episode of Care: established 05/05/24 Patient will report no falls. [place] in home exercise program. Patient will Improve Timed Up and Go to <9 seconds to demonstrate decreased risk of falling. Patient will improve 5 time sit to stand to demonstrate improvement in functional lower extremity strength. Patient will increase balance to 10 seconds for single limb stance on RLE and >5 seconds for single limb stance on LLE . Patient to demonstrate appropriate balance strategies to reduce risk for falls. Improve performance on 4 Stage Balance Test to >8sec tandem to reflect decreased fall risk. Improve B Hip Flexion AND ABD strength to 5/5 MMT Patient Goals: Get up on a stair or small step ladder and take something down without unsteadiness. Complete basement stairs while carrying objects. Time Frame for Goals and Treatment : 06/16/24 Planned Interventions, Frequency, and Duration: Current Frequency: 2x/week Duration: 4 weeks Total Number of Visits Planned: 8 Planned Treatment Interventions: Therapeutic exercise (62949), Neuromuscular re-education (44813), Manual therapy (37209), Therapeutic activities (01265), Self-fci management (37846), Patient/Family/Caregiver Education, Gait Training (27125) PLAN FOR NEXT VISIT: Challenge Balance; Dynamic Balance Activities. Patient demonstrates good understanding of plan of care and treatment. The above goals and plan of care were discussed and agreed upon by patient/family. SUBJECTIVE: Here for Balance AND Gait. Went to see Dr. Blandon because he could tell his imbalance was getting worse. Has not had a fall. However, feels like he could at anytime. Does different activities slow per report. When getting on step stool, feels like he needs to have a ahnd on something for steadiness, unable to lift things to put away. 2 cats at home, states do not get under foot. No loose rugs. Lives alone. Never had to use an AD. Patient Goals: Get up on a stair or small step ladder and take something down without unsteadiness. Complete basement stairs while carrying objects. Functional Limitations: rising from a chair, stair negotiation, physical activities, lifting, heavy exertion Prior Level of Function: Independent without limitations Relevant History Past Relevant Medical Conditions: Comments Relevant Medical Conditions Comments: Hx of HTN, Hyperlipidemia, GERD, Prostate cancer, Insomnia, JOSE MIGUEL, colon adenoma, diverticulosis, Hx of BCC skin cancer and Melanoma of the skin, DDD lumbar with lumbar spinal stenosis Past Relevant Surgical Conditions: Total Knee Replacement-Right Right or Left Handed: (RLE Dominant) Employment: Retired Recreation / Current Exercise: No specific exercise. Will walk outside if nice out. Home Environment Patient Lives With: Self/Alone Assistance Available: PRN Home Type: [place] (Does go to basement, rail 1 side, 13 steps.) Entry To Home: Stairs, With Rail Tub/Shower Type: Walk-In, Grab Bars throughout Laundry: Completes. First floor Intake Information: Prescription present Previous Treatment: None Falls Interview: No positive findings with falls interview Falls History # of falls in past year: 0 # of falls resulting in an injury in past year: 0 Pain: Pain Pain Level: 0 Post Treatment Pain Post Treatment Pain Level: No Change PROMIS Scales 05/05/2024 02/09/2021 06/22/2019 Higher is Better Phys F (more content not included)... [facility] 04-28-2024 Note HNO ID: [id number] Author: TRAN YOUNG PA-C Service: ? 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 Pain is a 5 out of 10 deep aching with any type of activity. Patient denies any pain while he is at rest. He reports that the pain feels weak. He also complains of atrophy. He is status post right carpal tunnel release with Dr. Queen in 2019. He states that he has taken some ibuprofen but nothing too consistent. He has not tried any type of bracing. He tells me that he is not interested in surgical options as he seems quite unhappy following his right carpal tunnel release. He is right-handed dominant. ASSESSMENT: M18.11 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 (primary encounter diagnosis) PLAN: The patient has a basal joint arthritis, we discussed getting him into a functional brace that he can wear during activity and also doing a corticosteroid injection. The patient agrees to plan. 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 Gen:There were no vitals taken for this visit. nl development, non obese, no deformities ENT: Normocephalic, normal hearing, moist mucosa CV: Pulses:Radial= 2+ and symmetric, capillary refill < 2 secs, no peripheral edema/varicosities Skin: no rash, bruising or lesions. Good turgor. Psych: cooperative and appropriate, alert and oriented x 3, good mood and affect. Musculoskeletal: right thumb with mild swelling at the base. Mild tenderness to palpation at the dorsal capsule with very minimal crepitance. Painful grind test. Good motion at the MCP without hyperextension. Same with PIP and no locking or catching. Median, radial and ulnar nerves are intact. Non-tender first dorsal compartment with a negative Bianka's test. In addition to the comprehensive evaluation, assessment and plan outlined above, and as a distinct and separate element to the visit today, separate from a DME order of CMC brace , we have made the determination to proceed with an injection to aid in the management of the patient's condition. We discussed the risks, benefits, alternatives and expected outcomes of this injection in detail, and the patient agreed to proceed. The procedure was performed as detailed below. Small Joint Arthro/Inj 04/28/2024 12:11 PM Small Joint Arthro/Inj: R thumb CMC 04/28/2024 9:03 AM The procedure site was prepped in the usual sterile fashion. Medications: 3 mg betamethasone acetate-betamethasone sodium phosphate 6 mg/mL Anesthetics: 0.5 mL lidocaine (PF) 10 mg/mL (1 %) Outcome: tolerated well, no immediate complications Post-injection instructions were reviewed with the patient and the patient voiced understanding of these instructions. Informed Consent Consent Obtained: Verbal [place] Protocol A moment to CARE was completed. SIGN IN Sign in communication not applicable due to emergent procedure. Personnel directly involved with the procedure wore the appropriate PPE. Special Equipment: N/A Patient/Surrogate Stated/Verified: Patient name, Date of , Relevant allergies and Intended procedure TIME OUT Relevant labs, photos, and/or imaging studies have been reviewed. Consent documented and matches the intended procedure. Correct side/site marked and visible. Medications required for procedure verified. No fire risk assessment and interventions applicable. No implant(s) inserted. SIGN OUT No specimen collected. Imaging: * * *Final Report* * * DATE OF EXAM: Jul 07 2019 9:46AM [id number] - XR HAND 3V PA/LAT/OBL RT / PROCEDURE REASON: Closed dislocation of metacarpophalangeal joint of finger, subsequent encounter * * * * Physician Interpretation * * * * Indication: History of reduction of a right index finger metacarpophalangeal joint Comparison: X-ray right hand 05/27/2019 3 views of the right hand are obtained. There is no acute fracture or dislocation. There is unchanged narrowing of the right first metacarpophalangeal joint. There is mild first carpometacarpal joint space narrowing. Impression: Unchanged narrowing of the right first metacarpophalangeal joint Gasfitter: PAUL Transcribe Date/Time: Jul 07 2019 10:16A Dictated by : LILA PATE MD This examination was int (more content not included)... [facility] 04-28-2024 History of Present illness Narrative Associated Order(s): Small Joint Arthro/Inj: R thumb [facility] Post-Procedure Diagnose(s): 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 Tran Young PA-C Department of Orthopaedics Orthopaedics [address] [facility] [address] Dept: [phone] Dept April 28, 2024 CHIEF COMPLAINT: New of the Right Hand (Last seen 02/02/20 with BP right hand pain) Mr. Andrew Guerra Karmen BORJAS is a 83 year old male who presents with pain in the base of his right thumb which has been bothering him with activity for the past several years. Pain is a 5 out of 10 deep aching with any type of activity. Patient denies any pain while he is at rest. He reports that the pain feels weak. He also complains of atrophy. He is status post right carpal tunnel release with Dr. Queen in 2019. He states that he has taken some ibuprofen but nothing too consistent. He has not tried any type of bracing. He tells me that he is not interested in surgical options as he seems quite unhappy following his right carpal tunnel release. He is right-handed dominant. ASSESSMENT: M18.11 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 (primary encounter diagnosis) PLAN: The patient has a basal joint arthritis, we discussed getting him into a functional brace that he can wear during activity and also doing a corticosteroid injection. The patient agrees to plan. Mr. Andrew Guerra Karmen BORJAS was advised as to contrast therapies and/or to take analgesics/anti-inflammatories as needed and all contraindications were reviewed. OBJECTIVE: Mr. Andrew Peraza is a pleasant 83 year old in no apparent distress. Gen:There were no vitals taken for this visit. nl development, non obese, no deformities ENT: Normocephalic, normal hearing, moist mucosa CV: Pulses:Radial= 2+ and symmetric, capillary refill < 2 secs, no peripheral edema/varicosities Skin: no rash, bruising or lesions. Good turgor. Psych: cooperative and appropriate, alert and oriented x 3, good mood and affect. Musculoskeletal: right thumb with mild swelling at the base. Mild tenderness to palpation at the dorsal capsule with very minimal crepitance. Painful grind test. Good motion at the MCP without hyperextension. Same with PIP and no locking or catching. Median, radial and ulnar nerves are intact. Non-tender first dorsal compartment with a negative Bianka's test. In addition to the comprehensive evaluation, assessment and plan outlined above, and as a distinct and separate element to the visit today, separate from a DME order of CMC brace , we have made the determination to proceed with an injection to aid in the management of the patient's condition. We discussed the risks, benefits, alternatives and expected outcomes of this injection in detail, and the patient agreed to proceed. The procedure was performed as detailed below. Small Joint Arthro/Inj: R thumb CMC 04/28/2024 12:11 PM The procedure site was prepped in the usual sterile fashion. Medications: 3 mg betamethasone acetate-betamethasone sodium phosphate 6 mg/mL Anesthetics: 0.5 mL lidocaine (PF) 10 mg/mL (1 %) Outcome: tolerated well, no immediate complications Post-injection instructions were reviewed with the patient and the patient voiced understanding of these instructions. Informed Consent Consent Obtained: Verbal [place] Protocol A moment to CARE was completed. SIGN IN Sign in communication not applicable due to emergent procedure. Personnel directly involved with the procedure wore the appropriate PPE. Special Equipment: N/A Patient/Surrogate Stated/Verified: Patient name, Date of , Relevant allergies and Intended procedure TIME OUT Relevant labs, photos, and/or imaging studies have been reviewed. Intended patient and procedure match the source document(s). Consent documented and matches the intended procedure. Correct side/site marked and visible. Medications required for procedure verified. No fire risk assessment and interventions applicable. No implant(s) inserted. SIGN OUT No specimen collected. No instruments, equipment or retained foreign bodies applicable. Post-procedure follow-up management communicated and Plan of Care Visit completed when applicable Imaging: * * *Final Report* * * DATE OF EXAM: Jul 07 2019 9:46AM [id number] - XR HAND 3V PA/LAT/OBL RT / PROCEDURE REASON: Closed dislocation of metacarpophalangeal joint of finger, subsequent encounter * * * * Physician Interpretation * * * * Indication: History of reduction of a right index finger metacarpophalangeal joint Comparison: X-ray right hand 05/27/2019 3 views of the right hand are obtained. There is no acute fracture or dislocation. There is unchanged narrowing of the right first metacarpophalangeal joint. There is mild first carpometacarpal joint space narrowing. Impression: Unchanged narrowing of the right first metacarpophalangeal joint Gasfitter: PSCB Transcribe Date/Time: Jul 07 2019 10:16A Dictated by : LILA PATE MD This examination was interpreted and the report reviewed and electronically signed by: LILA PATE MD on Jul 07 2019 10:21AM EST Supporting Subjective Information Below: Past Surgical History: PAST SURGICAL HISTORY Procedure Laterality Date ABDOMINAL SURGERY HX ARTHRP KNE CONDYLE&PLATU MEDIAL&LAT COMPARTMENTS Right 10/30/2016 Knee replacement, total COLONOSCOPY FLX DX W/COLLJ SPEC WHEN PFRMD 05/14/2014 Colonoscopy COLONOSCOPY FLX DX W/COLLJ SPEC WHEN PFRMD 04/29/2018 Colonoscopy COLONOSCOPY FLX DX W/COLLJ SPEC WHEN PFRMD 09/16/2020 COLONOSCOPY W/BIOPSY SINGLE/MULTIPLE 04/29/2010 DESTRUCTION, 1ST LESION 06/19/2012 Amputation/cauterization right medial malleolus EGD ESOPHAGOGASTRODUODENOSCOPY TRANSORAL DIAGNOSTIC 04/29/2018 EGD EYE SURGERY HX HERNIA REPAIR HX JOINT REPLACEMENT HX KNEE ARTHROSCOPY Right 2004 LAPS PROSTECT RETROPUBIC RAD W/NRV SPARING ROBOT 1996 NEUROPLASTY &/TRANSPOS MEDIAN NRV CARPAL TUNNE Right 09/18/2019 Right carpal tunnel release RPR 1ST INGUN HRNA AGE 5 YRS/> REDUCIBLE Right 12/08/2014 [facility] SHOULDER ARTHROSCOPY/SURGERY Right 1988 SHOULDER ARTHROSCOPY/SURGERY Left 1989 SKIN BIOPSY HX TONSILLECTOMY AND ADENOIDECTOMY HX 194 Medications: Current Outpatient Medications Medication Sig fluticasone (FLONASE ALLERGY RELIEF) 50 mcg/actuation nasal spray Use 2 Sprays in each nostril once daily. omeprazole (PRILOSEC) 20 mg capsule Take 1 capsule by mouth once daily on an empty stomach. metoprolol succinate ER (TOPROL XL) 50 mg 24 hr tablet Take 1 tablet by mouth once daily. lisinopril (ZESTRIL) 20 mg tablet Take 1 tablet by mouth once daily. cyanocobalamin (VITAMIN B-12) 100 mcg tab Take 100 mcg by mouth once daily. aspirin, enteric coated (ASPIRIN, ENTERIC COATED) 81 mg EC tablet Take 81 mg by mouth once daily. Take one tablet daily No current facility-administered medications for this visit. Allergies: Penicillin G and Zoloft [Sertraline Hcl] ROS: General (negative for fatigue, malaise, weight loss/gain) HEENT (negative for headache, earache, recent vision changes, sinus pain, sore throat) Respiratory (no recent shortness of breath, hemoptysis) CV (negative for chest tightness, palpitations) Musculoskeletal (see HPI) Psych (no depression, anxiety) This note was partially generated using [employer] voice recognition system, and there may be some incorrect words, spellings, and punctuation that were not noted in checking the note before saving. Tran Young PA-C Patient presents with: Right Hand - New: Last seen 02/02/20 with BP right hand pain AMB ROOMING INTAKE FLOWSHEET DATA Pain Pain Level: 4 Pain Location: Hand-Right Description: Stabbing Duration Amount of Time: 5 Duration Units: Minutes Frequency: Intermittent Intervention/Comfort measure: Medication Patient states he is having pain when he grasp something at the base of his right thumb. 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 States his hand writing has gotten worse. Patient is right hand dominant. Tried Ibuprofen and Tylenol for the pain and does not help. X-rays done today. documented in this encounter [facility] 04-28-2024 Note HNO ID: [id number] Author: RADHA DEE MA Service: ? Author Type: [place] Type: Progress Notes Filed: 04/30/2024 13:05 Note Text: Patient presents with: Right Hand - New: Last seen 02/02/20 with BP right hand pain AMB ROOMING INTAKE FLOWSHEET DATA Pain Pain Level: 4 Pain Location: Hand-Right Description: Stabbing Duration Amount of Time: 5 Duration Units: Minutes Frequency: Intermittent Intervention/Comfort measure: Medication Patient states he is having pain when he grasp something at the base of his right thumb. 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 States his hand writing has gotten worse. Patient is right hand dominant. Tried Ibuprofen and Tylenol for the pain and does not help. X-rays done today. [facility] 04-24-2024 Telephone encounter Note Pt returned call and given provider's message below with verbalized understanding. [facility] 04-24-2024 Miscellaneous Notes Pt returned call and given provider's message below with verbalized understanding. Left message for pt to contact office. Pablo Cheney LPN Let patient know his Trigs were slightly elevated at 202 (goal<150). His HDL and LDL were ok. Decreasing fat in the diet can help lower the Trigs some. The rest of his labs and UA were fine. documented in this encounter [facility] 04-24-2024 Telephone encounter Note Left message for pt to contact office. Pablo Cheney LPN [facility] 04-24-2024 Telephone encounter Note Let patient know his Trigs were slightly elevated at 202 (goal<150). His HDL and LDL were ok. Decreasing fat in the diet can help lower the Trigs some. The rest of his labs and UA were fine. [facility] 04-22-2024 Instructions Ross Blandon MD - 04/22/2024 10:56 AM EST Please get labs and urine test done on or after 04/05/2024 prior to your next visit. Screening schedule The following prevention plan is recommended: Depression Screening Never done Anxiety Screening Never done Advance Directive Discussion due on 03/05/2024 WHAT YOU CAN DO TO PREVENT FALLS Many falls can be prevented. By making some changes, you can lower your chances of falling. Four things YOU can do to prevent falls for you* and your caregiver 1. Begin a regular exercise program Exercise is one of the most important ways to lower your chances of falling. It makes you stronger and helps you feel better. Exercises that improve balance and coordination (like Dionisio Chi) are the most helpful. Lack of exercise leads to weakness and increases your chances of falling. Ask your doctor or health care provider about the best type of exercise program for you. 2. Have your health care provider review your medicines Have your doctor or pharmacist review all the medicines you take, even dzcc-xio-cqyhitc medicines. As you get older, the way medicines work in your body can change. Some medicines, or combinations of medicines, can make you sleepy or dizzy and can cause you to fall. 3. Have your vision checked Have your eyes checked by an eye doctor at least once a year. You may be wearing the wrong glasses or have a condition like glaucoma or cataracts that limits your vision. Poor vision can increase your chances of falling. 4. Make your home safer About half of all falls happen at home. To make your home safer: Remove things you can trip over (like papers, books, clothes, and shoes) from stairs and places where you walk. Remove small throw rugs or use double-sided tape to keep the rugs from slipping. Keep items you use often in cabinets you can reach easily without using a step stool. Have grab bars put in next to your toilet and in the tub or shower. Use non-slip mats in the bathtub and on shower floors. Improve the lighting in your home. As you get older, you need brighter lights to see well. Hang light-weight curtains or shades to reduce glare. Have handrails and lights put in on all staircases. Wear shoes both inside and outside the house. Avoid going barefoot or wearing slippers. For more information, contact: Centers for Disease Control and Prevention www.cdc.gov/injury * This information may not apply if you have certain medical conditions. documented in this encounter [facility] 04-22-2024 Note HNO ID: [id number] Author: ROSS BLANDON MD Service: ? 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 Medicare Health Risk Assessment General Health Good Exercise: Minutes/Day 0 min Exercise: Days/Week 0 days Alcohol: Daily Use 4 or more times a week Alcohol: Drinks/Day 1 or 2 Alcohol: 6 or more drinks Never Feel off balance Yes Concerns: Teeth/Dentures No Concerns: Sexual function No Troubled by feelings Anxious Frequency: Eating healthy diet Nearly every day ADLs requiring help None of the above Safety precautions in home/vehicle Yes Smoke, vape, chews tobacco No Difficulty hearing No Difficulty seeing No Current Providers Specialists: I have reviewed specialist-related care of the patient in the medical record. Current care team: Patient Care Team: Ross Balndon MD as PCP - General (Family Medicine) Jennifer Kumar APRN.PAPER MACHINE SUPERVISOR as Company Dancer (Family Medicine) Ally De PA-C as Company Dancer (Family Medicine) Sebas: Urology optho Medical/Family history review Reviewed and updated problem list, medical/surgical/family/social history, medications, and allergies. Opioid use review Opioid Medications (last 90 days) No data to display Anxiety/Depression screening PHQ-2 Score: 0 (Lower risk for depression) Recommendation: no further intervention at this time Cognitive screening Mini Cog Score: 4 Cognitive screening reviewed and No further action needed (score 3-5). Functional Observation Was the patient's Timed Up AND Go test unsteady or >= 12 seconds? No Advance Care Planning Surrogate decision maker and/or advance care plan documented Measurements BP 128/74 Pulse 68 Resp 16 Ht 166.4 cm (5' 5.5) Wt 74.8 kg (165 lb) BMI 27.04 kg/m? 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 and Medicare Annual Visit. Patient with Hx of HTN, Hyperlipidemia, GERD, Prostate cancer, Insomnia, JOSE MIGUEL, colon adenoma, diverticulosis, Hx of BCC skin cancer and Melanoma of the skin, DDD lumbar with lumbar spinal stenosis as well as those reviewed and addressed below and in ROS. Patient sees Dr. Blevins last visit 04/2024 Patient sees Urology last visit 09/2023 Patient has been noticing issues with his balance. Feels unsteady when walking and trying to avoid falling. Has not had a fall. Past medical history, appointments, medications, allergies reviewed. Previous Medical History PAST MEDICAL HISTORY Diagnosis Date Advance directive discussed with patient 04/19/2022 Discussed 04/2022: up to date Aortic root dilatation (HCC) 04/18/2021 Arthritis of knee 08/02/2016 DDD (degenerative disc disease), cervical 04/18/2021 May need prn prednisone. DDD (degenerative disc disease), lumbar 03/15/2017 Diverticulosis of colon (without mention of hemorrhage) Diverticulosis of large intestine without hemorrhage 03/21/2018 Added automatically from request for surgery [id number] Elevated blood sugar 04/19/2022 Essential hypertension 01/22/2007 03/11/2019: Home BP Cuff Validated. 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 [facility] 04-22-2024 History of Present illness Narrative Images from the original note were not included. 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 Medicare Health Risk Assessment General Health Good Exercise: Minutes/Day 0 min Exercise: Days/Week 0 days Alcohol: Daily Use 4 or more times a week Alcohol: Drinks/Day 1 or 2 Alcohol: 6 or more drinks Never Feel off balance Yes Concerns: Teeth/Dentures No Concerns: Sexual function No Troubled by feelings Anxious Frequency: Eating healthy diet Nearly every day ADLs requiring help None of the above Safety precautions in home/vehicle Yes Smoke, vape, chews tobacco No Difficulty hearing No Difficulty seeing No Current Providers Specialists: I have reviewed specialist-related care of the patient in the medical record. Current care team: Patient Care Team: Ross Blandon MD as PCP - General (Family Medicine) Jennifer Kumar APRN.SANKET as Company Dancer (Family Medicine) Ally De PA-C as Company Dancer (Family Medicine) Sebas: Urology optho Medical/Family history review Reviewed and updated problem list, medical/surgical/family/social history, medications, and allergies. Opioid use review Opioid Medications (last 90 days) No data to display Anxiety/Depression screening PHQ-2 Score: 0 (Lower risk for depression) Recommendation: no further intervention at this time Cognitive screening Mini Cog Score: 4 Cognitive screening reviewed and No further action needed (score 3-5). Functional Observation Was the patient's Timed Up & Go test unsteady or >= 12 seconds? 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 and Medicare Annual Visit. Patient with Hx of HTN, Hyperlipidemia, GERD, Prostate cancer, Insomnia, JOSE MIGUEL, colon adenoma, diverticulosis, Hx of BCC skin cancer and Melanoma of the skin, DDD lumbar with lumbar spinal stenosis as well as those reviewed and addressed below and in ROS. Patient sees Dr. Blevins last visit 04/2024 Patient sees Urology last visit 09/2023 Patient has been noticing issues with his balance. Feels unsteady when walking and trying to avoid falling. Has not had a fall. Past medical history, appointments, medications, allergies reviewed. Previous Medical History PAST MEDICAL HISTORY Diagnosis Date Advance directive discussed with patient 04/19/2022 Discussed 04/2022: up to date Aortic root dilatation (HCC) 04/18/2021 Arthritis of knee 08/02/2016 DDD (degenerative disc disease), cervical 04/18/2021 May need prn prednisone. DDD (degenerative disc disease), lumbar 03/15/2017 Diverticulosis of colon (without mention of hemorrhage) Diverticulosis of large intestine without hemorrhage 03/21/2018 Added automatically from request for surgery [id number] Elevated blood sugar 04/19/2022 Essential hypertension 01/22/2007 03/11/2019: Home BP Cuff Validated. Home BP: 118/58 Office BP: 128/72 GERD without esophagitis 03/21/2018 Added automatically from request for surgery [id number] H/O BCC skin cancer: other malignant neoplasm of skin 06/21/2010 History of colonic polyps 03/21/2018 Added automatically from request for surgery [id number] History of transfusion Impotence of organic origin 06/03/2002 Insomnia 12/04/2014 Living will on file 04/18/2021 DPA: and then Son (Parveen) Low serum vitamin B12 04/19/2022 Malignant neoplasm of prostate (HCC) 08/22/2005 Medicare annual wellness visit, subsequent 04/18/2021 Medicare Part B: 10/03/2005, Last done: 04/18/2021 Mixed hyperlipidemia 12/04/2014 Nocturia 12/08/2022 Obstructive sleep apnea 03/15/2017 Marginal result and could not tolerate CPAP. 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 Personal history of malignant melanoma of skin 06/21/2010 Situational depression 11/24/2016 Status post total knee replacement, right 12/07/2016 Tubular adenoma of colon 03/14/20172014--tubular adenoma in mid transverse colon and rectum Urinary hesitancy 12/08/2022 Previous Surgical History PAST SURGICAL HISTORY Procedure Laterality Date ABDOMINAL SURGERY HX ARTHRP KNE CONDYLE&PLATU MEDIAL&LAT COMPARTMENTS Right 10/30/2016 Knee replacement, total COLONOSCOPY FLX DX W/COLLJ SPEC WHEN PFRMD 05/14/2014 Colonoscopy COLONOSCOPY FLX DX W/COLLJ SPEC WHEN PFRMD 04/29/2018 Colonoscopy COLONOSCOPY FLX DX W/COLLJ SPEC WHEN PFRMD 09/16/2020 COLONOSCOPY W/BIOPSY SINGLE/MULTIPLE 04/29/2010 DESTRUCTION, 1ST LESION 06/19/2012 Amputation/cauterization right medial malleolus EGD ESOPHAGOGASTRODUODENOSCOPY TRANSORAL DIAGNOSTIC 04/29/2018 EGD EYE SURGERY HX HERNIA REPAIR HX JOINT REPLACEMENT HX KNEE ARTHROSCOPY Right 2004 LAPS PROSTECT RETROPUBIC RAD W/NRV SPARING ROBOT 1996 NEUROPLASTY &/TRANSPOS MEDIAN NRV CARPAL TUNNE Right 09/18/2019 Right carpal tunnel release RPR 1ST INGUN HRNA AGE 5 YRS/> REDUCIBLE Right 12/08/2014 [place] SHOULDER ARTHROSCOPY/SURGERY Right 1988 SHOULDER ARTHROSCOPY/SURGERY Left 1989 SKIN BIOPSY HX TONSILLECTOMY AND ADENOIDECTOMY HX 1944 Family History FAMILY HISTORY Problem Relation Age of Onset Hypertension Mother Heart Attack Mother other (diverticulitis) Father Sudden Cardiac Father Prostate Cancer Brother Patient Allergies ALLERGIES Allergen Reactions Penicillin G Hives Urticaria Reaction details: hives occurred within hours after administration at age 25 Outcome of reaction: stopped agent Tolerated the following: Penicillin g Zoloft [Sertraline * Other: See Comments nightmares Current Medications Current Outpatient Medications on File Prior to Visit Medication Sig omeprazole (PRILOSEC) 20 mg capsule Take 1 capsule by mouth once daily on an empty stomach. metoprolol succinate ER (TOPROL XL) 50 mg 24 hr tablet Take 1 tablet by mouth once daily. lisinopril (ZESTRIL) 20 mg tablet Take 1 tablet by mouth once daily. cyanocobalamin (VITAMIN B-12) 100 mcg tab Take 100 mcg by mouth once daily. aspirin, enteric coated (ASPIRIN, ENTERIC COATED) 81 mg EC tablet Take 81 mg by mouth once daily. Take one tablet daily cyclobenzaprine (FLEXERIL) 10 mg tablet Take 1/2 to 1 tablet by mouth 3 times daily as needed for muscle pain or spasm. (Patient not taking: Reported on 04/16/2023) No current facility-administered medications on file prior to visit. Social History Social History Tobacco Use Smoking status: Former Types: Pipe Smokeless tobacco: Never Tobacco comments: Pt quit smoking pipe. Vaping Use Vaping status: Never Used Substance Use Topics Alcohol use: Yes Alcohol/week: 9.1 standard drinks of alcohol Types: 7 Mixed Drinks per week Drug use: Never Review of Symptoms REVIEW OF SYSTEMS GENERAL: No weight loss, malaise or fevers HEENT: Negative for frequent or significant headaches, has pain around the left ear for the pat year and seems to be more tender. No drainage. No changes in hearing or vision,. Nose is always congested with clear nasal discharge. NECK: Negative for lumps, goiter, pain and significant neck swelling. Slightly tender under the left ear. RESPIRATORY: Negative for cough, hemoptysis, wheezing, COPD, dyspnea or shortness of breath CARDIOVASCULAR: Negative for chest pain, leg swelling, hypertension, CHF or palpitations GI: No nausea, vomiting, or diarrhea, No heartburn or reflux symptoms, and no blood. : No history of dysuria, frequency or blood. MUSCULOSKELETAL: Negative for joint pain or swelling, back pain or muscle pain SKIN: Negative for lesions, rash, and itching PSYCH: Negative for sleep disturbance, mood disorder and recent psychosocial stressors HEMATOLOGY/LYMPHOLOGY: Negative for prolonged bleeding, bruising easily or swollen nodes ENDOCRINE: Negative for cold or heat intolerance, polyuria, polydipsia and goiter NEURO: No history of syncope, paralysis, seizures or tremors EXAM: BP 128/74 Pulse 68 Resp 16 Ht 166.4 cm (5' 5.5) Wt 74.8 kg (165 lb) BMI 27.04 kg/m Last 5 Encounter Wt Readings: Date: Wt: 04/22/2024 74.8 kg (165 lb) 09/25/2023 76.2 kg (168 lb) 04/20/2023 73.5 kg (162 lb) 03/06/2023 75.8 kg (167 lb 3.2 oz) 12/12/2022 74.6 kg (164 lb 6.4 oz) General Appearance: Well appearing, alert, in no acute distress, well-hydrated, well nourished.. Skin: Skin color, texture, turgor normal, no suspicious rashes or lesions. Head: Normocephalic, no masses, lesions, tenderness or abnormalities. Eyes: Anicteric sclera. Pupils are equally round and reactive to light. Extraocular movements are intact. . Ears: External ears normal, canals blocked with wax Nose/Sinuses: Nares normal, septum midline, mucosa normal, no drainage or sinus tenderness. Oropharynx: Lips, mucosa, and tongue normal, teeth and gums normal, oropharynx normal. Neck: Supple, no adenopathy; thyroid symmetric, normal size, no bruits. Lungs: Lungs clear to auscultation. No wheezing, rhonchi, rales.. Heart: RRR without murmur, gallop, or rubs. No ectopy. Abdomen: Normal abdominal exam, Abdomen soft, non-tender. Bowel sounds normal. No masses, organomegaly. Extremities: No deformities, edema, skin discoloration, Good capillary refill. . Musculoskeletal: Muscular strength intact, No joint swelling, deformity, or tenderness. Peripheral Pulses: Normal. Neurologic: Gait slightly widened. Reflexes normal and symmetric. Sensation to light touch and crainal nerves 2-12 intact. No cog wheeling or lead piping in the upper extremities. . Health Maintenance List Depression Screening Never done Anxiety Screening Never done Advance Directive Discussion due on 03/05/2024 Covid-19 Vaccine( season) due on 05/17/2024 DTaP,Tdap,Td Vaccine(4 - Td or Tdap) due on 03/20/2025 Diabetes Screening due on 04/16/2026 Influenza Vaccine Completed RSV Vaccine Completed Shingrix Vaccine Completed Pneumococcal Vaccine: 50+ Completed Colorectal Cancer Screening Discontinued Data reviewed A/P ASSESSMENT/PLAN: 1. Medicare annual wellness visit, subsequent - ICD9: V70.0, ICD10: Z00.00 (primary diagnosis) - Counseled on healthy diet and regular exercise - Patient counseled on and acknowledged vaccine benefits/risks/side effects; VIS provided: Influenza - Follow up for annual exam in one year 2. Essential hypertension - ICD9: 401.9, ICD10: I10 - Controlled - Continue current medications - Recommend home blood pressure monitoring, to bring results to next visit - Encouraged sodium restriction, DASH or Mediterranean diet - Recommend regular aerobic exercise Check - URINALYSIS, WITH MICROSCOPIC - COMPREHENSIVE METABOLIC PANEL - LIPID PANEL, NONFASTING 3. Mixed hyperlipidemia - ICD9: 272.2, ICD10: E78.2 - Control undetermined, due for labs - Counseled on healthy diet and regular exercise Check - URINALYSIS, WITH MICROSCOPIC - COMPREHENSIVE METABOLIC PANEL - LIPID PANEL, NONFASTING 4. GERD without esophagitis - ICD9: 530.81, ICD10: K21.9 - Continue treatment with Prilosec 20 mg every day Check - VITAMIN B12 - MAGNESIUM 5. Elevated blood sugar - ICD9: 790.29, ICD10: R73.9 Check - HEMOGLOBIN A1C 6. Aortic root dilatation (HCC) - ICD9: 447.71, ICD10: I77.810 Check Patient does not want further imaging. 7. Adjustment insomnia - ICD9: 307.41, ICD10: F51.02 - stable not needing med management 8. Low serum vitamin B12 - ICD9: 266.2, ICD10: E53.8 Check - VITAMIN B12 - COMPLETE BLOOD COUNT AND DIFFERENTIAL - cont replacement 9. Malignant neoplasm of prostate (HCC) - ICD9: 185, ICD10: C61 - follows with urology. 10. Balance problem - ICD9: 781.99, ICD10: R26.89 - CONSULT TO PHYSICAL THERAPY 11. Advance directive discussed with patient - ICD9: V65.49, ICD10: Z71.89 - up to date 12. Screening for depression - ICD9: V79.0, ICD10: Z13.31 - DEPRESSION SCREENING 13. Encounter for screening examination for other mental health and behavioral disorders - ICD9: V79.8, ICD10: Z13.39 - ANXIETY SCREENING 14. Abnormality of gait - ICD9: 781.2, ICD10: R26.9 - CONSULT TO PHYSICAL THERAPY 15. Medication management - ICD9: V58.69, ICD10: Z79.899 Check - VITAMIN B12 - MAGNESIUM - COMPLETE BLOOD COUNT AND DIFFERENTIAL 16. Bilateral impacted cerumen - ICD9: 380.4, ICD10: H61.23 Discussed irrigation with wam water. Verbal consent provided. Both ears were irrigated with warm water for the removal of wax per nursing. Was not able to completely remove the wax with irrigation. The physician then used a lighted ear pick and removed the wax from the left ear and about 1/2 from the right. Patient tolerated well. - AMBULATORY EAR LAVAGE/IRRIGATION - advised on use of debrox ear drops to help get the rest of the wax out of the right ear. 18. Left ear pain - ICD9: 388.70, ICD10: H92.02 - maybe eustachian tube related. Will try Flonase for a month. Educated on use. Requested Prescriptions Signed Prescriptions Disp Refills fluticasone (FLONASE ALLERGY RELIEF) 50 mcg/actuation nasal spray 1 Each 1 Sig: Use 2 Sprays in each nostril once daily. F/u in a year or sooner if needed. Check labs prior. I spent a total of 40 minutes on the date of the service which included preparing to see the patient, [id number] patient care, completing clinical documentation, performing a medically appropriate examination, counseling and educating the patient/family/caregiver and ordering medications, tests, or procedures. Ross Blandon MD error documented in this encounter [facility] 04-22-2024 Note HNO ID: [id number] Author: ROSS BLANDON MD Service: ? Author Type: Physician Type: Progress Notes Filed: 04/22/2024 13:12 Note Text: error [facility] 04-15-2024 Note HNO ID: [id number] Author: APOLINAR BLEVINS, ? Service: ? Author Type: Physician Type: Progress Notes Filed: 04/15/2024 09:34 Note Text: Subjective: Patient presents to clinic c/o painful toenails. They state that the nails are especially painful with shoe gear and pressure. Patient states that nails 1-5 b/l are painful. No other pedal complaints at this time. Patient states no change in medications or medical history since last visit. Objective: Patient presents to clinic ambulating in dress shoes Vasc: DP and PT pulses are palpable bilateral. CFT is less than 5 seconds bilateral. Skin temperature is warm to cool proximal to distal bilateral. There is no edema or varicosities noted. Neuro: Protective sensation is intact to the foot and toes when tested with the 5.07 SWM bilateral. Vibratory sensation is decreased at the hallux IPJ bilateral. The hallux is downgoing bilateral. Derm: Nails 1-5 b/l are painful, discolored-yellow, thick, crumbly, dystrophic and with subungal debris. Skin is of normal turgor, texture and hair growth is present bilateral. There are no hyperkeratosis, ulcerations, scars, verruca or other lesions noted. Ortho: Muscle strength is 5/5 for all pedal groups tested. Ankle joint DF is decreased with the knee extended with no pain or crepitus noted. 1st MPJ ROM is decreased bilateral. Assessment: (B35.1) Onychomycosis (primary encounter diagnosis) (M79.674) Pain in toe of right foot (M79.675) Pain in toe of left foot Plan: Patient was seen and evaluated. Nails 1-5 bilateral were debrided in length and thickness. Patient is to RTC in 3-4 months. Apolinar Blevins DPM [facility] 04-15-2024 History of Present illness Narrative Subjective: Patient presents to clinic c/o painful toenails. They state that the nails are especially painful with shoe gear and pressure. Patient states that nails 1-5 b/l are painful. No other pedal complaints at this time. Patient states no change in medications or medical history since last visit. Objective: Patient presents to clinic ambulating in dress shoes Vasc: DP and PT pulses are palpable bilateral. CFT is less than 5 seconds bilateral. Skin temperature is warm to cool proximal to distal bilateral. There is no edema or varicosities noted. Neuro: Protective sensation is intact to the foot and toes when tested with the 5.07 SWM bilateral. Vibratory sensation is decreased at the hallux IPJ bilateral. The hallux is downgoing bilateral. Derm: Nails 1-5 b/l are painful, discolored-yellow, thick, crumbly, dystrophic and with subungal debris. Skin is of normal turgor, texture and hair growth is present bilateral. There are no hyperkeratosis, ulcerations, scars, verruca or other lesions noted. Ortho: Muscle strength is 5/5 for all pedal groups tested. Ankle joint DF is decreased with the knee extended with no pain or crepitus noted. 1st MPJ ROM is decreased bilateral. Assessment: (B35.1) Onychomycosis (primary encounter diagnosis) (M79.674) Pain in toe of right foot (M79.675) Pain in toe of left foot Plan: Patient was seen and evaluated. Nails 1-5 bilateral were debrided in length and thickness. Patient is to RTC in 3-4 months. Apolinar Blevins DPM documented in this encounter [facility] 01-14-2024 Note HNO ID: [id number] Author: APOLINAR BLEVINS, ? Service: ? Author Type: Physician Type: Progress Notes Filed: 01/14/2024 09:51 Note Text: Subjective: Patient presents to clinic c/o painful toenails. They state that the nails are especially painful with shoe gear and pressure. Patient states that nails 1-5 b/l are painful. No other pedal complaints at this time. Patient states no change in medications or medical history since last visit. Objective: Patient presents to clinic ambulating in [facility] Vasc: DP and PT pulses are palpable bilateral. CFT is less than 5 seconds bilateral. Skin temperature is warm to cool proximal to distal bilateral. There is no edema or varicosities noted. Neuro: Protective sensation is intact to the foot and toes when tested with the 5.07 SWM bilateral. Vibratory sensation is intact at the hallux IPJ bilateral. The hallux is downgoing bilateral. Derm: Nails 1-5 b/l are painful, discolored-yellow, thick, crumbly, dystrophic and with subungal debris. Skin is of normal turgor, texture and hair growth is present bilateral. There are no hyperkeratosis, ulcerations, scars, verruca or other lesions noted. Assessment: (B35.1) Onychomycosis (primary encounter diagnosis) (M79.674) Pain in toe of right foot (M79.675) Pain in toe of left foot Plan: Patient was seen and evaluated. Nails 1-5 bilateral were debrided in length and thickness. Patient is to RTC in 3-4 months. Apolinar Blevins DPM [facility] 01-14-2024 History of Present illness Narrative Subjective: Patient presents to clinic c/o painful toenails. They state that the nails are especially painful with shoe gear and pressure. Patient states that nails 1-5 b/l are painful. No other pedal complaints at this time. Patient states no change in medications or medical history since last visit. Objective: Patient presents to clinic ambulating in [facility] Vasc: DP and PT pulses are palpable bilateral. CFT is less than 5 seconds bilateral. Skin temperature is warm to cool proximal to distal bilateral. There is no edema or varicosities noted. Neuro: Protective sensation is intact to the foot and toes when tested with the 5.07 SWM bilateral. Vibratory sensation is intact at the hallux IPJ bilateral. The hallux is downgoing bilateral. Derm: Nails 1-5 b/l are painful, discolored-yellow, thick, crumbly, dystrophic and with subungal debris. Skin is of normal turgor, texture and hair growth is present bilateral. There are no hyperkeratosis, ulcerations, scars, verruca or other lesions noted. Assessment: (B35.1) Onychomycosis (primary encounter diagnosis) (M79.674) Pain in toe of right foot (M79.675) Pain in toe of left foot Plan: Patient was seen and evaluated. Nails 1-5 bilateral were debrided in length and thickness. Patient is to RTC in 3-4 months. Apolinar Blevins DPM AMB ROOMING INTAKE FLOWSHEET DATA Patient presents with: Left Foot - Established Patient, Follow Up, nail care Right Foot - Established Patient, Follow Up, nail care Mary Rand LPN documented in this encounter [facility] 01-14-2024 Note HNO ID: [id number] Author: MARY RAND LPN Service: ? Author Type: LICENSED NURSE Type: Progress Notes Filed: 01/14/2024 09:51 Note Text: AMB ROOMING INTAKE FLOWSHEET DATA Patient presents with: Left Foot - Established Patient, Follow Up, nail care Right Foot - Established Patient, Follow Up, nail care Mary Rand LPN [facility] 01-04-2024 Telephone encounter Note Prescription Refill Information The patient has been identified by name and date of : Yes Caregiver verified no other encounters exist for this prescription request: Yes Caregiver confirmed with patient/requestor that no other refills are due, in the near future, with this provider at this time: Yes The last office visit in the department: 04/20/23 Does the patient have a future office visit with this provider/department: Yes Requested Prescriptions Pending Prescriptions Disp Refills omeprazole (PRILOSEC) 20 mg capsule 90 capsule 1 Sig: Take 1 capsule by mouth once daily on an empty stomach. Mayra Vaughan LPN January 04, 2024 8:41 AM [facility] 01-04-2024 Miscellaneous Notes Prescription Refill Information The patient has been identified by name and date of : Yes Caregiver verified no other encounters exist for this prescription request: Yes Caregiver confirmed with patient/requestor that no other refills are due, in the near future, with this provider at this time: Yes The last office visit in the department: 04/20/23 Does the patient have a future office visit with this provider/department: Yes Requested Prescriptions Pending Prescriptions Disp Refills omeprazole (PRILOSEC) 20 mg capsule 90 capsule 1 Sig: Take 1 capsule by mouth once daily on an empty stomach. Mayra Vaughan LPN January 04, 2024 8:41 AM documented in this encounter [facility] 01-02-2024 Telephone encounter Note Prescription Refill Information The patient has been identified by name and date of : Yes Caregiver verified no other encounters exist for this prescription request: Yes Caregiver confirmed with patient/requestor that no other refills are due, in the near future, with this provider at this time: Yes The last office visit in the department: 04/20/23 Does the patient have a future office visit with this provider/department: Yes Requested Prescriptions Pending Prescriptions Disp Refills omeprazole (PRILOSEC) 20 mg capsule 90 capsule 1 Sig: Take 1 capsule by mouth once daily on an empty stomach. Pablo Cheney LPN January 02, 2024 11:20 AM [facility] 01-02-2024 Miscellaneous Notes Prescription Refill Information The patient has been identified by name and date of : Yes Caregiver verified no other encounters exist for this prescription request: Yes Caregiver confirmed with patient/requestor that no other refills are due, in the near future, with this provider at this time: Yes The last office visit in the department: 04/20/23 Does the patient have a future office visit with this provider/department: Yes Requested Prescriptions Pending Prescriptions Disp Refills omeprazole (PRILOSEC) 20 mg capsule 90 capsule 1 Sig: Take 1 capsule by mouth once daily on an empty stomach. Pablo Cheney LPN January 02, 2024 11:20 AM documented in this encounter [facility] 11-27-2023 Telephone encounter Note The patient has been identified by name and date of : Yes Caregiver verified no other encounters exist for this prescription request: Yes Caregiver confirmed with patient/requestor that no other refills are due, in the near future, with this provider at this time: Yes The last office visit in the department: 04/20/2023 Does the patient have a future office visit with this provider/department: Yes 04/22/2024 Requested Prescriptions Pending Prescriptions Disp Refills metoprolol succinate ER (TOPROL XL) 50 mg 24 hr tablet 90 tablet 1 Sig: Take 1 tablet by mouth once daily. Elli Ruiz RN November 27, 2023 8:17 AM [facility] 11-27-2023 Miscellaneous Notes The patient has been identified by name and date of : Yes Caregiver verified no other encounters exist for this prescription request: Yes Caregiver confirmed with patient/requestor that no other refills are due, in the near future, with this provider at this time: Yes The last office visit in the department: 04/20/2023 Does the patient have a future office visit with this provider/department: Yes 04/22/2024 Requested Prescriptions Pending Prescriptions Disp Refills metoprolol succinate ER (TOPROL XL) 50 mg 24 hr tablet 90 tablet 1 Sig: Take 1 tablet by mouth once daily. Elli Ruiz RN November 27, 2023 8:17 AM documented in this encounter [facility] 09-25-2023 History of Present illness Narrative Images from the original note were not included. [facility], [facility] EST PATIENT CLINIC NOTE Some elements copied from his previous note, which have been updated where appropriate, and all reflect current medical decision making from date of this visit. 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 Alfredo for CaP Stopped Flomax and Vesicare and is still doing well except the urine spray when his bladder is less than full he tends to strain and then urine sprays Discuss there is not much to be done for medication but so bathroom habits may need adjusted to help PVR - 0ml LUTS: Urine [place]- not stricture given sporadic here and there Other symptoms: LABS: No results found for: TESTOST No results found for: TESTFREE PSA (ng/mL) Date Value 04/13/2022 <0.02 03/09/2017 <0.03 12/01/2014 <0.03 01/18/2012 <0.03 Hematocrit (%) Date Value 04/16/2023 50.1 03/09/2021 46.9 08/13/2020 45.9 07/08/2020 48.3 PSA (ng/mL) Date Value 04/13/2022 <0.02 03/09/2017 <0.03 12/01/2014 <0.03 01/18/2012 <0.03 Creatinine Date Value Ref Range Status 04/16/2023 1.19 0.73 - 1.22 mg/dL Final 04/13/2022 0.95 0.73 - 1.22 mg/dL Final 03/09/2021 1.05 0.73 - 1.22 mg/dL Final 07/08/2020 1.11 0.73 - 1.22 mg/dL Final MEDICATIONS: lisinopril (ZESTRIL) 20 mg tablet Take 1 tablet by mouth once daily. omeprazole (PRILOSEC) 20 mg capsule Take 1 capsule by mouth once daily on an empty stomach. metoprolol succinate ER (TOPROL XL) 50 mg 24 hr tablet Take 1 tablet by mouth once daily. cyanocobalamin (VITAMIN B-12) 100 mcg tab Take 100 mcg by mouth once daily. aspirin, enteric coated (ASPIRIN, ENTERIC COATED) 81 mg EC tablet Take 81 mg by mouth once daily. Take one tablet daily cyclobenzaprine (FLEXERIL) 10 mg tablet Take 1/2 to 1 tablet by mouth 3 times daily as needed for muscle pain or spasm. (Patient not taking: Reported on 04/16/2023) PAST MEDICAL HISTORY: PAST MEDICAL HISTORY Diagnosis Date Advance directive discussed with patient 04/19/2022 Discussed 04/2022: up to date Aortic root dilatation (HCC) 04/18/2021 Arthritis of knee 08/02/2016 DDD (degenerative disc disease), cervical 04/18/2021 May need prn prednisone. DDD (degenerative disc disease), lumbar 03/15/2017 Diverticulosis of colon (without mention of hemorrhage) Diverticulosis of large intestine without hemorrhage 03/21/2018 Added automatically from request for surgery [id number] Elevated blood sugar 04/19/2022 Essential hypertension 01/22/2007 03/11/2019: Home BP Cuff Validated. 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 PHYSICAL EXAMINATION: Blood pressure 128/76, pulse 68, temperature 36.8 C (98.2 F), temperature source Temporal, resp. rate 14, height 167.6 cm (5' 6), weight 76.2 kg (168 lb), SpO2 97%. GENERAL: WNL nutrition, no deformities, healthy appearing Prostate surgically removed PROBLEM LIST REVIEW: Yes LABS: Results for orders placed or performed in visit on 09/25/23 UA DIP, URINE (POC) Result Value Ref Range GLUCOSE UA (POCT) Negative Negative mg/dL BILIRUBIN UA (POCT) Negative Negative KETONE UA (POCT) Negative Negative mg/dL SPECIFIC GRAVITY UA (POCT) 1.020 1.005 - 1.030 HEMOGLOBIN/BLOOD UA (POCT) Negative Negative PH UA (POCT) 7.5 4.5 - 8.0 PROTEIN UA (POCT) Negative Negative mg/dL UROBILINOGEN UA (POCT) 0.2 Normal E.U./dL NITRITE UA (POCT) Negative Negative LEUKOCYTES UA (POCT) Negative Negative COLOR UA (POCT) Dark yellow CLARITY UA (POCT) Slightly Cloudy PROCEDURES: PVR: 0 ml IMAGING: IMPRESSION/PLAN: 1. Nocturia - ICD9: 788.43, ICD10: R35.1 (primary diagnosis) 2. Malignant neoplasm of prostate (HCC) - ICD9: 185, ICD10: C61 3. Screening for genitourinary condition - ICD9: V81.6, ICD10: Z13.89 > Most concerning issue is urine spray when not a full bladder - not much to be done since its inconsistent > may want to re-try Flomax if so, he will call > 1 year Appt w/ BJAMESON Mcadams MT, PA-C for annual follow-up and refills. JAMESON Nixon MT, PA-C Verified name and date of . 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 The patient is here now for an appointment with JAMESON Nixon, MT, PA-COV. Procedure: Explained procedure to patient and verbalizes understanding. Performed a PVR. Patient urinated and instructed to empty bladder as much as possible just prior to having PVR done using bladder ultrasound scanner. Results of scan: 0 mL The patient tolerated the procedure well. Plan: Appointment with Al. documented in this encounter [facility] 09-10-2023 History of Present illness Narrative Subjective: Patient presents to clinic c/o painful toenails. They state that the nails are especially painful with shoe gear and pressure. Patient states that nails right 3rd nail is painful from time to time but since having the procedure done, the toes feel much better. No other pedal complaints at this time. Patient states no change in medications or medical history since last visit. Objective: Patient presents to clinic ambulating in [place] Vasc: DP and PT pulses are palpable bilateral. CFT is less than 5 seconds bilateral. Skin temperature is warm to cool proximal to distal bilateral. There is no edema or varicosities noted. Neuro: Protective sensation is intact to the foot and toes when tested with the 5.07 SWM bilateral. The hallux is downgoing bilateral. Derm: Nails 1-5 b/l are elongated discolored-yellow, thick, crumbly, dystrophic and with subungal debris. Some pain to right 3rd toenail. No signs of infection. Skin is of normal turgor, texture and hair growth is present bilateral. There are no hyperkeratosis, ulcerations, scars, verruca or other lesions noted. Ortho: Muscle strength is 5/5 for all pedal groups tested. Ankle joint DF is decreased with the knee extended with no pain or crepitus noted. 1st MPJ ROM is decreased bilateral. Assessment: (B35.1) Onychomycosis (primary encounter diagnosis) (M79.675) Pain in toe of left foot (M79.674) Pain in toe of right foot Plan: Patient was seen and evaluated. Nails 1-5 bilateral were debrided in length and thickness. Patient is to RTC in 3-4 months. Apolinar Blevins DPM AMB ROOMING INTAKE FLOWSHEET DATA Patient presents with: Left Foot - nail care , Established Patient, Follow Up Right Foot - Established Patient, Follow Up, nail care Mary Rand LPN documented in this encounter [facility] 07-26-2023 History of Present illness Narrative FOLLOW UP PODIATRIC OFFICE VISIT Chief Complaint: This 82 year old who presents for follow up:right hallux medial nail border matrixectomy and right 3rd toe lateral border matrixectomy Patient denies any drainage Pain is minimal Doing well PAIN EVALUATION 07/26/2023 1305 Pain Level: 1 Pain Location: Toe Description: Sore Duration Amount of Time: 2 Duration Units: Weeks Frequency: Intermittent Intervention/Comfort measure: Reposition;Relaxation Hemoglobin A1C Date Value Ref Range Status 04/16/2023 5.6 4.3 - 5.6 % Final Comment: [place] [employer] guidelines indicate that patients with HgbA1c in the range 5.7-6.4% are at increased risk for development of diabetes, and intervention by lifestyle modification may be beneficial. HgbA1c greater or equal to 6.5% is considered diagnostic of diabetes. PCP: Ross Blandon MD PAST MEDICAL HISTORY Diagnosis Date Advance directive discussed with patient 04/19/2022 Discussed 04/2022: up to date Aortic root dilatation (HCC) 04/18/2021 Arthritis of knee 08/02/2016 DDD (degenerative disc disease), cervical 04/18/2021 May need prn prednisone. DDD (degenerative disc disease), lumbar 03/15/2017 Diverticulosis of colon (without mention of hemorrhage) Diverticulosis of large intestine without hemorrhage 03/21/2018 Added automatically from request for surgery [id number] Elevated blood sugar 04/19/2022 Essential hypertension 01/22/2007 03/11/2019: Home BP Cuff Validated. 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 omeprazole (PRILOSEC) 20 mg capsule Take 1 capsule by mouth once daily on an empty stomach. metoprolol succinate ER (TOPROL XL) 50 mg 24 hr tablet Take 1 tablet by mouth once daily. cyanocobalamin (VITAMIN B-12) 100 mcg tab Take 100 mcg by mouth once daily. aspirin, enteric coated (ASPIRIN, ENTERIC COATED) 81 mg EC tablet Take 81 mg by mouth once daily. Take one tablet daily cyclobenzaprine (FLEXERIL) 10 mg tablet Take 1/2 to 1 tablet by mouth 3 times daily as needed for muscle pain or spasm. (Patient not taking: Reported on 04/16/2023) No current facility-administered medications for this visit. ALLERGIES Allergen Reactions Penicillin G Hives Urticaria Reaction details: hives occurred within hours after administration at age 25 Outcome of reaction: stopped agent Tolerated the following: Penicillin g Zoloft [Sertraline * Other: See Comments nightmares PAST SURGICAL HISTORY Procedure Laterality Date ABDOMINAL SURGERY HX ARTHRP KNE CONDYLE&PLATU MEDIAL&LAT COMPARTMENTS Right 10/30/2016 Knee replacement, total COLONOSCOPY FLX DX W/COLLJ SPEC WHEN PFRMD 05/14/2014 Colonoscopy COLONOSCOPY FLX DX W/COLLJ SPEC WHEN PFRMD 04/29/2018 Colonoscopy COLONOSCOPY FLX DX W/COLLJ SPEC WHEN PFRMD 09/16/2020 COLONOSCOPY W/BIOPSY SINGLE/MULTIPLE 04/29/2010 DESTRUCTION, 1ST LESION 06/19/2012 Amputation/cauterization right medial malleolus EGD ESOPHAGOGASTRODUODENOSCOPY TRANSORAL DIAGNOSTIC 04/29/2018 EGD EYE SURGERY HX HERNIA REPAIR HX JOINT REPLACEMENT HX KNEE ARTHROSCOPY Right 2004 LAPS PROSTECT RETROPUBIC RAD W/NRV SPARING ROBOT 1996 NEUROPLASTY &/TRANSPOS MEDIAN NRV CARPAL TUNNE Right 09/18/2019 Right carpal tunnel release RPR 1ST INGUN HRNA AGE 5 YRS/> REDUCIBLE Right 12/08/2014 [place] SHOULDER ARTHROSCOPY/SURGERY Right 1988 SHOULDER ARTHROSCOPY/SURGERY Left 1989 SKIN BIOPSY HX TONSILLECTOMY AND ADENOIDECTOMY HX 194 Physical Exam: OBJECTIVE: Constitutional: Pt is a well developed 82 year old male who is alert, oriented, cooperative and in no apparent distress. Eyes: Following during examination. No redness or drainage. Respiratory: RR normal and nonlabored. Even breathing. No evidence of distress. Psychology: Patient is engaged during conversation. Normal affect and mood. Does not appear depressed or anxious. NVSI unchanged from previous visit. Dermatological: Right hallux medial border and right 3rd toe lateral border No signs of infection. ASSESSMENT: (S91.109A) Open wound of toe, initial encounter (primary encounter diagnosis) PLAN: Wound is progressing nicely Continue with local wound care until healed Patient very happy with progress Apolinar Blevins DPM AMB ROOMING INTAKE FLOWSHEET DATA Pain Pain Level: 1 Pain Location: Toe Description: Sore Duration Amount of Time: 2 Duration Units: Weeks Frequency: Intermittent Intervention/Comfort measure: Reposition, Relaxation Patient presents with: Right Great Toe - Established Patient, Follow Up, Ingrown Toenail, Pain Mary Rand LPN documented in this encounter [facility] 07-26-2023 Instructions Apolinar Blevins - 07/26/2023 1:12 PM EDT Your wound is progressing nicely Keep close watch on the toe for any redness or infection Can continue with soaking for another week or so and topical antibiotic as needed documented in this encounter [facility] 07-10-2023 Telephone encounter Note Pt called and is notified of providers message and instructions. Pt voices understanding. Laura Enciso RN [facility] 07-10-2023 Miscellaneous Notes Pt called and is notified of providers message and instructions. Pt voices understanding. Laura Enciso RN TC no answer. Left VM to return call to office. BEE Pearce Let patient know his metoprolol was filled in Apr for 90 days with a refill. He should have a refill that he just needs to call the pharmacy to get. Patient has been identified by name and date of : Yes. Provider: Barber Patient phones for refill(s): Requested Prescriptions Pending Prescriptions Disp Refills metoprolol succinate ER (TOPROL XL) 50 mg 24 hr tablet 90 tablet 1 Sig: Take 1 tablet by mouth once daily. Date of last office visit in primary care: 04/20/2023 Date of next office visit in primary care: 04/22/2024 Please advise. Thank you. Fátima Mireles LPN. documented in this encounter [facility] 07-10-2023 Telephone encounter Note TC no answer. Left VM to return call to office. BEE Pearce [facility] 07-10-2023 Telephone encounter Note Let patient know his metoprolol was filled in Apr for 90 days with a refill. He should have a refill that he just needs to call the pharmacy to get. [facility] 07-10-2023 Telephone encounter Note Patient has been identified by name and date of : Yes. Provider: Barber Patient phones for refill(s): Requested Prescriptions Pending Prescriptions Disp Refills metoprolol succinate ER (TOPROL XL) 50 mg 24 hr tablet 90 tablet 1 Sig: Take 1 tablet by mouth once daily. Date of last office visit in primary care: 04/20/2023 Date of next office visit in primary care: 04/22/2024 Please advise. Thank you. Fátima Mireles LPN. [facility] 07-09-2023 Telephone encounter Note Pharmacist Refill Authorization Review Name: Andrew Peraza MD Date: 07/09/2023 Time: 3:45 PM Refill authorization request(s) received and reviewed under effective consult agreement. Upon review, did confirm that an active patient-provider relationship exists and that the prescriber is a participating physician under the consult agreement. Last office visit in this department: 04/20/2023 Ross Blandon MD Last distance health visit in this department: Visit date not found Next appointment in this department: 04/22/2024 Ross Blandon MD The medication(s) fall under the following categories: Category 1: No barriers to continued therapy exists and patient is up to date with provider visits. 3. Essential hypertension - ICD9: 401.9, ICD10: I10 - Controlled - Continue current medications Prescription(s) issued as below. Requested Prescriptions Signed Prescriptions Disp Refills lisinopril (ZESTRIL) 20 mg tablet 90 tablet 3 Sig: Take 1 tablet by mouth once daily. Authorizing Provider: ROSS BLANDON Ordering User: ERON RODRIGEZ Number of refills approved in this encounter: 1 Number of refills forwarded to provider for review: 0 Number of refills denied in this encounter: 0 Eron Rodrigez RPh [facility] 07-09-2023 Miscellaneous Notes Pharmacist Refill Authorization Review Name: Andrew Peraza MD Date: 07/09/2023 Time: 3:45 PM Refill authorization request(s) received and reviewed under effective consult agreement. Upon review, did confirm that an active patient-provider relationship exists and that the prescriber is a participating physician under the consult agreement. Last office visit in this department: 04/20/2023 Ross Blandon MD Last distance health visit in this department: Visit date not found Next appointment in this department: 04/22/2024 Ross Blandon MD The medication(s) fall under the following categories: Category 1: No barriers to continued therapy exists and patient is up to date with provider visits. 3. Essential hypertension - ICD9: 401.9, ICD10: I10 - Controlled - Continue current medications Prescription(s) issued as below. Requested Prescriptions Signed Prescriptions Disp Refills lisinopril (ZESTRIL) 20 mg tablet 90 tablet 3 Sig: Take 1 tablet by mouth once daily. Authorizing Provider: ROSS BLANDON Ordering User: ERON RODRIGEZ Number of refills approved in this encounter: 1 Number of refills forwarded to provider for review: 0 Number of refills denied in this encounter: 0 Eron Rodrigez RPh documented in this encounter [facility] 07-09-2023 History of Present illness Narrative FOLLOW UP PODIATRIC OFFICE VISIT Chief Complaint: This 82 year old who presents for follow up:ingrowing toenail of right hallux medial nail border and right 3rd toe lateral nail border Patient presents to clinic for follow-up chronic ingrowing toenail of right hallux medial nail border and right 3rd toe lateral nail border. This is a chronic issue and he is here to do partial chemical matrixectomy of right hallux medial nail border and right 3rd toe lateral nail border PAIN EVALUATION No data found in the last 1 encounters. Hemoglobin A1C Date Value Ref Range Status 04/16/2023 5.6 4.3 - 5.6 % Final Comment: [place] [employer] guidelines indicate that patients with HgbA1c in the range 5.7-6.4% are at increased risk for development of diabetes, and intervention by lifestyle modification may be beneficial. HgbA1c greater or equal to 6.5% is considered diagnostic of diabetes. PCP: Ross Blandon MD PAST MEDICAL HISTORY Diagnosis Date Advance directive discussed with patient 04/19/2022 Discussed 04/2022: up to date Aortic root dilatation (HCC) 04/18/2021 Arthritis of knee 08/02/2016 DDD (degenerative disc disease), cervical 04/18/2021 May need prn prednisone. DDD (degenerative disc disease), lumbar 03/15/2017 Diverticulosis of colon (without mention of hemorrhage) Diverticulosis of large intestine without hemorrhage 03/21/2018 Added automatically from request for surgery [id number] Elevated blood sugar 04/19/2022 Essential hypertension 01/22/2007 03/11/2019: Home BP Cuff Validated. 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 lisinopril (ZESTRIL) 20 mg tablet Take 1 tablet by mouth once daily. metoprolol succinate ER (TOPROL XL) 50 mg 24 hr tablet Take 1 tablet by mouth once daily. cyanocobalamin (VITAMIN B-12) 100 mcg tab Take 100 mcg by mouth once daily. aspirin, enteric coated (ASPIRIN, ENTERIC COATED) 81 mg EC tablet Take 81 mg by mouth once daily. Take one tablet daily cyclobenzaprine (FLEXERIL) 10 mg tablet Take 1/2 to 1 tablet by mouth 3 times daily as needed for muscle pain or spasm. (Patient not taking: Reported on 04/16/2023) No current facility-administered medications for this visit. ALLERGIES Allergen Reactions Penicillin G Hives Urticaria Reaction details: hives occurred within hours after administration at age 25 Outcome of reaction: stopped agent Tolerated the following: Penicillin g Zoloft [Sertraline * Other: See Comments nightmares PAST SURGICAL HISTORY Procedure Laterality Date ABDOMINAL SURGERY HX ARTHRP KNE CONDYLE&PLATU MEDIAL&LAT COMPARTMENTS Right 10/30/2016 Knee replacement, total COLONOSCOPY FLX DX W/COLLJ SPEC WHEN PFRMD 05/14/2014 Colonoscopy COLONOSCOPY FLX DX W/COLLJ SPEC WHEN PFRMD 04/29/2018 Colonoscopy COLONOSCOPY FLX DX W/COLLJ SPEC WHEN PFRMD 09/16/2020 COLONOSCOPY W/BIOPSY SINGLE/MULTIPLE 04/29/2010 DESTRUCTION, 1ST LESION 06/19/2012 Amputation/cauterization right medial malleolus EGD ESOPHAGOGASTRODUODENOSCOPY TRANSORAL DIAGNOSTIC 04/29/2018 EGD EYE SURGERY HX HERNIA REPAIR HX JOINT REPLACEMENT HX KNEE ARTHROSCOPY Right 2004 LAPS PROSTECT RETROPUBIC RAD W/NRV SPARING ROBOT 1996 NEUROPLASTY &/TRANSPOS MEDIAN NRV CARPAL TUNNE Right 09/18/2019 Right carpal tunnel release RPR 1ST INGUN HRNA AGE 5 YRS/> REDUCIBLE Right 12/08/2014 [facility] SHOULDER ARTHROSCOPY/SURGERY Right 1988 SHOULDER ARTHROSCOPY/SURGERY Left 1989 SKIN BIOPSY HX TONSILLECTOMY AND ADENOIDECTOMY HX 1943 Physical Exam: OBJECTIVE: Constitutional: Pt is a well developed 82 year old male who is alert, oriented, cooperative and in no apparent distress. Eyes: Following during examination. No redness or drainage. Respiratory: RR normal and nonlabored. Even breathing. No evidence of distress. Psychology: Patient is engaged during conversation. Normal affect and mood. Does not appear depressed or anxious. Vascular: DP and pt pulses are palpable to right foot. Non-Invasive Vascular Laboratory [facility] Lower Extremity Arterial Physiology Study Bilateral/Complete Date of service/time: 04/14/2022 9:03:58 AM Name: DR. ANDREW PERAZA MD Date of : 1940 Age: 81 years Gender: M Clinical Indication Abnormal pulses. TECHNIQUE -------- An arterial physiological examination was performed, including measurement of blood pressures using continuous wave Doppler and recording of plethysmographic with or without Doppler waveforms at the below-mentioned limb segments. FINDINGS -------- RIGHT SIDE AT REST Right Doppler Waveforms Dorsalis pedis: Multiphasic. Post tibial: Multiphasic. Right Pressures Brachial: 130 mmHg Ankle dorsalis pedis: 143 mmHg MARKOS: 1.08 Ankle posterior tibial: 166 mmHg MARKOS: 1.25 Digit: 114 mmHg Right PVR Waveforms Ankle: Normal. Digit: Normal. LEFT SIDE AT REST Left Doppler Waveforms Dorsalis pedis: Multiphasic. Post tibial: Multiphasic. Left Pressures Brachial: 133 mmHg Ankle dorsalis pedis: 152 mmHg MARKOS: 1.14 Ankle posterior tibial: 149 mmHg MARKOS: 1.12 Digit: 111 mmHg Left PVR Waveforms Ankle: Normal. Digit: Normal. IMPRESSION RIGHT SIDE Resting right ankle brachial index: 1.25 Right toe brachial index: 0.86 Normal ankle brachial index at rest in the right leg. Normal toe brachial index at rest in the right leg. Right ankle: Normal at rest. LEFT SIDE Resting left ankle brachial index: 1.14 Left toe brachial index: 0.83 Normal ankle brachial index at rest in the left leg. Normal toe brachial index at rest in the left leg. Left ankle: Normal at rest. Technologist: Porsche Parnell RVT, [facility] Ordering physician: APOLINAR BLEVINS Interpreting physician: EDDI Presley DO Dermatological: Right hallux medial nail border and right 3rd toe lateral nail border has ingrowing tendency without infection Musculoskeletal/Orthopaedic: Patient has pain to palpation of right hallux medial and right 3rd toe lateral nail border ASSESSMENT: (L60.0) Ingrowing toenail (primary encounter diagnosis) PLAN: Discussed ingrowing toenail of right hallux medial nail border. This is a chronic issue. Options include periodic debridement which he has already tried vs doing partial chemical matrixectomy. Patient has elected to partial chemical matrixectomy of right hallux medial nail border. Discussed risks of toenail procedure not limited to infection, pain, swelling, bleeding, painful scarring, recurrence, need for revised procedure. Patient consented to proceed. Patient was properly identified by name and procedure. The right hallux was then injected with 3 cc of 1% lidocaine plain. The toe was then prepped and draped in the usual aseptic technique. A digital tournicot was applied to the toe. The medial border was then freed and removed. Careful inspection was performed to assure no remaining spicule present. 3 applications of phenol were then administered x 30 seconds each followed by alcohol rinse. Sterile dressing was then applied consisting of amerigel, guaze, swati and coban. Tournicot was removed and hyperemic response was noted. Patient tolerated well. Patient will f/u in 2 weeks. Discussed ingrowing toenail of right third toe lateral nail border. This is a chronic issue. Options include periodic debridement which he has already tried vs doing partial chemical matrixectomy. Patient has elected to partial chemical matrixectomy of right third toe lateral nail border. Discussed risks of toenail procedure not limited to infection, pain, swelling, bleeding, painful scarring, recurrence, need for revised procedure. Patient consented to proceed. Patient was properly identified by name and procedure. The right 3rd toe was then injected with 2.5 cc of 1% lidocaine plain. The toe was then prepped and draped in the usual aseptic technique. A digital tournicot was applied to the toe. The lateral border was then freed and removed. Careful inspection was performed to assure no remaining spicule present. 3 applications of phenol were then administered x 30 seconds each followed by alcohol rinse. Sterile dressing was then applied consisting of amerigel, guaze, swati and coban. Tournicot was removed and hyperemic response was noted. Patient tolerated well. Patient will f/u in 2 weeks. Offered fungal culture for possible evaluation to determine lamisil. He declined. Apolinar Blevins DPM UNIVERSAL PROTOCOL / SAFETY CHECKLIST Procedure to be Performed: Partial chemical matrixectomy, right hallux medial nail border Partial chemical matrixectomy, right third toe, lateral nail border Sign In: A Moment of CARE was completed. Personnel directly involved with the procedure wore the appropriate PPE (Personal Protective Equipment). Special equipment: nail kit Patient/Surrogate Stated/Verified: PATIENT VERIFIED(optional for EMERGENT procedures): Patient name, Date of , Relevant allergies, and The intended procedure Time Out Communication: Intended patient and procedure match the source documents. Consent documented and matches the intended procedure. No relevant labs, photos, and/or imaging studies were applicable for review. Correct side/site marked and visible. Medications required for procedure verified. No fire risk assessment and interventions applicable. No implant(s) inserted. Sign Out: SIGN OUT (optional for EMERGENT procedures): No specimen collected. All instruments, equipment, possible retained foreign bodies accounted for. Post-procedure follow-up management communicated and Plan of Care Visit completed when applicable. Laura Cintron RN AMB ROOMING INTAKE FLOWSHEET DATA Patient presents with: Right Foot - Established Patient, Follow Up, Ingrown Toenail Mary Rand LPN documented in this encounter [facility] 07-09-2023 Instructions Mary Rand LPN - 07/09/2023 9:32 AM EDT Post-Op Nail Instructions Minimize activity until the anesthesia wears off (about 2-8 hours). Increase activity to tolerance Remove bandage tomorrow Soak affected toe/foot in epsom salts for 15-20 minutes twice daily After soaking, apply antibiotic ointment (OTC Neosporin) to affected toe and re bandage OTC Ibuprofen if having pain, provided you have no allergies or intolerance to NSAIDS Mild drainage, redness, and blood is expected, but if you expeirence severe pain, increase in drainage, swelling, or red streaking please contact our office immediately Feel free to contact office as well if you have any questions/concerns [phone], ask for Podiatry Nurse documented in this encounter [facility] 06-14-2023 History of Present illness Narrative Subjective: Patient presents to clinic c/o painful toenails. They state that the nails are especially painful with shoe gear and pressure. Patient states that nails right hallux medial border and right 3rd toe lateral border are painful. Patient is now considering nail procedure. No other pedal complaints at this time. Patient states no change in medications or medical history since last visit. Objective: Patient presents to clinic ambulating in sneakers Vasc: DP and PT pulses are palpable bilateral. CFT is less than 5 seconds bilateral. Skin temperature is warm to cool proximal to distal bilateral. There is no edema or varicosities noted. Neuro: Protective sensation is intact to the foot and toes when tested with the 5.07 SWM bilateral. The hallux is downgoing bilateral. Derm: Nails 1-5 b/l are elongated. There is ingrowing nail of right hallux medial border with pain. There is ingrowing nail of right 3rd toe lateral border with pain. No signs of infection present. Skin is of normal turgor, texture and hair growth is present bilateral. There are no hyperkeratosis, ulcerations, scars, verruca or other lesions noted. Ortho: Muscle strength is 5/5 for all pedal groups tested. Ankle joint DF is full with the knee extended with no pain or crepitus noted. 1st MPJ ROM is full bilateral. Assessment: (B35.1) Onychomycosis (primary encounter diagnosis) (M79.674) Pain in toe of right foot (M79.675) Pain in toe of left foot Ingrowing toenail Plan: Patient was seen and evaluated. Nails 1-5 bilateral were debrided in length and thickness. Discussed ingrowing toenail of right hallux medial nail border. This is an ongoing issue. Could consider continued debridement vs partial nail matrixectomy. Patient would like to schedule partial nail matrixectomy of medial border, right hallux Discussed ingrowing toenail of right 3rd toe, lateral nail border. This is an ongoing issue. Could consider continued debridement vs partial nail matrixectomy. Patient would like to schedule partial nail matrixectomy of lateral border, right third toe. Apolinar Blevins DPM AMB ROOMING INTAKE FLOWSHEET DATA documented in this encounter [facility] 05-22-2023 Miscellaneous Notes Patient notified and voiced understanding. Patient indicated that he had the booster last month at [facility]. Domitila Maldonado MA Let patient know there is not a new COVID vaccine out yet. The CDC is recommending anyone who is 65 yrs of age or older to get a booster of the [id number] vaccine like the one he received back on 12/08/2022. The only stipulation is that the last dose was given at least 4 months ago which his was. So he can get a booster if interested.. Pt calling in to ask a question regarding COVID vaccine. Pt reports he thinks he got a COVID vaccine approximately 1 month ago and I do not show this. He heard there is a new vaccine out and wants to know if he needs to get this. Please review and advise pt. Mee Gardner LPN documented in this encounter [facility] 04-20-2023 Instructions Ross Blandon MD - 04/20/2023 10:04 AM EST Consider getting the RSV vaccine from a local pharmacy. Screening schedule The following prevention plan is recommended: RSV Vaccine(1 - 1-dose 60+ series) Never done Advance Directive Discussion due on 03/05/2023 Depression Assessment due on 03/05/2023 WHAT YOU CAN DO TO PREVENT FALLS Many falls can be prevented. By making some changes, you can lower your chances of falling. Four things YOU can do to prevent falls for you* and your caregiver 1. Begin a regular exercise program Exercise is one of the most important ways to lower your chances of falling. It makes you stronger and helps you feel better. Exercises that improve balance and coordination (like Dionisio Chi) are the most helpful. Lack of exercise leads to weakness and increases your chances of falling. Ask your doctor or health care provider about the best type of exercise program for you. 2. Have your health care provider review your medicines Have your doctor or pharmacist review all the medicines you take, even [id number] medicines. As you get older, the way medicines work in your body can change. Some medicines, or combinations of medicines, can make you sleepy or dizzy and can cause you to fall. 3. Have your vision checked Have your eyes checked by an eye doctor at least once a year. You may be wearing the wrong glasses or have a condition like glaucoma or cataracts that limits your vision. Poor vision can increase your chances of falling. 4. Make your home safer About half of all falls happen at home. To make your home safer: Remove things you can trip over (like papers, books, clothes, and shoes) from stairs and places where you walk. Remove small throw rugs or use double-sided tape to keep the rugs from slipping. Keep items you use often in cabinets you can reach easily without using a step stool. Have grab bars put in next to your toilet and in the tub or shower. Use non-slip mats in the bathtub and on shower floors. Improve the lighting in your home. As you get older, you need brighter lights to see well. Hang light-weight curtains or shades to reduce glare. Have handrails and lights put in on all staircases. Wear shoes both inside and outside the house. Avoid going barefoot or wearing slippers. For more information, contact: Centers for Disease Control and Prevention www.cdc.gov/injury * This information may not apply if you have certain medical conditions. 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 Medicare Health Risk Assessment General Health good Exercise: Minutes/Day none Exercise: Days/Week Alcohol: Daily Use 1-2 martinis and wine Alcohol: Drinks/Day Alcohol: 6 or more drinks Feel off balance Slight over the past few years. Concerns: Teeth/Dentures Concerns: Sexual function Troubled by feelings none Frequency: Eating healthy diet Off and on ADLs requiring help none Safety precautions in home/vehicle Wears seqt belts, has grab bars and stair rails Smoke, vape, chews tobacco quit Difficulty hearing slight Difficulty seeing Wearing glasses Current Providers Specialists: I have reviewed specialist-related care of the patient in the medical record. Current care team: Patient Care Team: Ross Blandon MD as PCP - General (Family Medicine) Dr. Pineda (podiatry) Medical/Family history review Reviewed and updated problem list, medical/surgical/family/social history, medications, and allergies. Opioid use review Opioid Medications (last 90 days) Some values may be hidden. Unless noted otherwise, only the newest values recorded on each date are displayed. Opioid Medications No data to display. Depression screening Depression Screening PHQ-2 Score PHQ-9 Score BARBER-2 Total Score 04/19/2022 0 - - Depression screening tool completed and reviewed. Based on score and interview, patient is not at risk for depression. Screening tool discussed with patient, and I recommended no further intervention at this time. Cognitive screening Cognitive screening reviewed and no further action needed (score 3-5) Functional Observation Was the patient's Timed Up & Go test unsteady or ? 12 seconds? No Advance Care Planning Surrogate decision maker documented and/or advance directives scanned in chart Measurements BP 132/80 Pulse 64 Resp 16 Ht 5' 5.5 (1.66m) Wt 162 lb (73.5kg) BMI 26.54 kg/(m^2). - seeing optho Additional screenings: No results found. 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 and Medicare Annual Visit. Patient with Hx of HTN, Hyperlipidemia, GERD, Prostate cancer, Insomnia, JOSE MIGUEL, colon adenoma, diverticulosis, Hx of BCC skin cancer and Melanoma of the skin, DDD lumbar with lumbar spinal stenosis as well as those reviewed and addressed below and in ROS. Any new concerns today? None - patient has noticed low BP's at home. Any recent ER/hospital visits? None Patient sees Dr. Blevins last visit 04/[address] Mullen last visit 03/2023 Past medical history, appointments, medications, allergies reviewed. Previous Medical History PAST MEDICAL HISTORY Diagnosis Date Advance directive discussed with patient 04/19/2022 Discussed 04/2022: up to date Aortic root dilatation (HCC) 04/18/2021 Arthritis of knee 08/02/2016 DDD (degenerative disc disease), cervical 04/18/2021 May need prn prednisone. DDD (degenerative disc disease), lumbar 03/15/2017 Diverticulosis of colon (without mention of hemorrhage) Diverticulosis of large intestine without hemorrhage 03/21/2018 Added automatically from request for surgery [id number] Elevated blood sugar 04/19/2022 Essential hypertension 01/22/2007 03/11/2019: Home BP Cuff Validated. Home BP: 118/58 Office BP: 128/72 GERD without esophagitis 03/21/2018 Added automatically from request for surgery [id number] H/O BCC skin cancer: other malignant neoplasm of skin 06/21/2010 History of colonic polyps 03/21/2018 Added automatically from request for surgery [id number] History of transfusion Impotence of organic origin 06/03/2002 Insomnia 12/04/2014 Living will on file 04/18/2021 DPA: and then Son (Parveen) Low serum vitamin B12 04/19/2022 Malignant neoplasm of prostate (HCC) 08/22/2005 Medicare annual wellness visit, subsequent 04/18/2021 Medicare Part B: 10/03/2005, Last done: 04/18/2021 Mixed hyperlipidemia 12/04/2014 Nocturia 12/08/2022 Obstructive sleep apnea 03/15/2017 Marginal result and could not tolerate CPAP. 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 Personal history of malignant melanoma of skin 06/21/2010 Situational depression 11/24/2016 Status post total knee replacement, right 12/07/2016 Tubular adenoma of colon 03/14/20172014--tubular adenoma in mid transverse colon and rectum Urinary hesitancy 12/08/2022 Previous Surgical History PAST SURGICAL HISTORY Procedure Laterality Date ABDOMINAL SURGERY HX ARTHRP KNE CONDYLE&PLATU MEDIAL&LAT COMPARTMENTS Right 10/30/2016 Knee replacement, total COLONOSCOPY FLX DX W/COLLJ SPEC WHEN PFRMD 05/14/2014 Colonoscopy COLONOSCOPY FLX DX W/COLLJ SPEC WHEN PFRMD 04/29/2018 Colonoscopy COLONOSCOPY FLX DX W/COLLJ SPEC WHEN PFRMD 09/16/2020 COLONOSCOPY W/BIOPSY SINGLE/MULTIPLE 04/29/2010 DESTRUCTION, 1ST LESION 06/19/2012 Amputation/cauterization right medial malleolus EGD ESOPHAGOGASTRODUODENOSCOPY TRANSORAL DIAGNOSTIC 04/29/2018 EGD EYE SURGERY HX HERNIA REPAIR HX JOINT REPLACEMENT HX KNEE ARTHROSCOPY Right 2004 LAPS PROSTECT RETROPUBIC RAD W/NRV SPARING ROBOT 1996 NEUROPLASTY &/TRANSPOS MEDIAN NRV CARPAL TUNNE Right 09/18/2019 Right carpal tunnel release RPR 1ST INGUN HRNA AGE 5 YRS/> REDUCIBLE Right 12/08/2014 [facility] SHOULDER ARTHROSCOPY/SURGERY Right 1988 SHOULDER ARTHROSCOPY/SURGERY Left 1989 SKIN BIOPSY HX TONSILLECTOMY AND ADENOIDECTOMY HX 1944 Family History FAMILY HISTORY Problem Relation Age of Onset Hypertension Mother Heart Attack Mother other (diverticulitis) Father Sudden Cardiac Father Prostate Cancer Brother Patient Allergies ALLERGIES Allergen Reactions Penicillin G Hives Urticaria Reaction details: hives occurred within hours after administration at age 25 Outcome of reaction: stopped agent Tolerated the following: Penicillin g Zoloft [Sertraline * Other: See Comments nightmares Current Medications Current Outpatient Medications on File Prior to Visit Medication Sig metoprolol succinate ER (TOPROL XL) 100 mg Take 1/2 tablet by mouth once daily. lisinopril (ZESTRIL) 20 mg tablet Take 1 tablet by mouth once daily. omeprazole (PRILOSEC) 20 mg capsule Take 1 capsule by mouth once daily on an empty stomach. cyanocobalamin (VITAMIN B-12) 100 mcg tab Take 100 mcg by mouth once daily. aspirin, enteric coated (ASPIRIN, ENTERIC COATED) 81 mg EC tablet Take 81 mg by mouth once daily. Take one tablet daily hydroCHLOROthiazide 12.5 mg capsule Take 1 capsule by mouth once daily. (Patient not taking: Reported on 04/16/2023) cyclobenzaprine (FLEXERIL) 10 mg tablet Take 1/2 to 1 tablet by mouth 3 times daily as needed for muscle pain or spasm. (Patient not taking: Reported on 04/16/2023) No current facility-administered medications on file prior to visit. Social History Social History Tobacco Use Smoking status: Former Types: Pipe Smokeless tobacco: Never Tobacco comments: Pt quit smoking pipe. Vaping Use Vaping Use: Never used Substance Use Topics Alcohol use: Yes Alcohol/week: 9.1 standard drinks of alcohol Types: 7 Mixed Drinks per week Drug use: Never Review of Symptoms REVIEW OF SYSTEMS GENERAL: No weight loss, malaise or fevers HEENT: Negative for frequent or significant headaches, No changes in hearing or vision, no nose bleeds or other nasal problems NECK: Negative for lumps, goiter, pain and significant neck swelling RESPIRATORY: Negative for cough, hemoptysis, wheezing, COPD, dyspnea or shortness of breath CARDIOVASCULAR: Negative for chest pain, leg swelling, hypertension, CHF or palpitations GI: No nausea, vomiting, or diarrhea, No heartburn or reflux symptoms, and no blood : No history of dysuria, frequency or blood. MUSCULOSKELETAL: Negative for new or changes in his typical joint pain or swelling, back pain or muscle pain SKIN: Negative for lesions, rash, and itching PSYCH: Negative for sleep disturbance, mood disorder and recent psychosocial stressors HEMATOLOGY/LYMPHOLOGY: Negative for prolonged bleeding, bruising easily or swollen nodes ENDOCRINE: Negative for cold or heat intolerance, polyuria, polydipsia and goiter NEURO: No history of headaches, syncope, paralysis, seizures or tremors EXAM: BP 132/80 (BP Site: Right Arm, BP Position: Sitting, BP Cuff Size: Regular Adult) Pulse 64 Resp 16 Ht 166.4 cm (5' 5.5) Wt 73.5 kg (162 lb) BMI 26.55 kg/m Last 4 Encounter Wt Readings: Date: Wt: 04/20/2023 73.5 kg (162 lb) 03/06/2023 75.8 kg (167 lb 3.2 oz) 12/12/2022 74.6 kg (164 lb 6.4 oz) 12/08/2022 74.4 kg (164 lb) General Appearance: Well appearing, alert, in no acute distress, well-hydrated, well nourished.. Skin: Skin color, texture, turgor normal, no suspicious rashes or lesions. Head: Normocephalic, no masses, lesions, tenderness or abnormalities. Eyes: Anicteric sclera. Pupils are equally round and reactive to light. Extraocular movements are intact. . Ears: External ears normal, canals clear. Nose/Sinuses: Nares normal, septum midline, mucosa normal, no drainage or sinus tenderness. Oropharynx: Lips, mucosa, and tongue normal, teeth and gums normal, oropharynx normal. Neck: Supple, no adenopathy; thyroid symmetric, normal size, no bruits. Lungs: Lungs clear to auscultation. No wheezing, rhonchi, rales.. Heart: RRR without murmur, gallop, or rubs. No ectopy. Abdomen: Normal abdominal exam, Abdomen soft, non-tender. Bowel sounds normal. No masses, organomegaly. Extremities: No deformities, edema, skin discoloration, clubbing or cyanosis. Good capillary refill. . Musculoskeletal: Spine range of motion normal. Muscular strength intact, No joint swelling, deformity, or tenderness. Peripheral Pulses: Normal. Neurologic: Gait normal. Reflexes normal and symmetric. Sensation grossly intact.. Genitalia: Normal, Penis normal. No urethral discharge. Scrotum normal to palpation. No hernia.. Health Maintenance List RSV Vaccine(1 - 1-dose 60+ series) Never done Advance Directive Discussion due on 03/05/2023 Depression Assessment due on 03/05/2023 DTaP,Tdap,Td Vaccine(4 - Td or Tdap) due on 03/20/2025 Diabetes Screening due on 04/16/2026 Influenza Vaccine Completed Shingrix Vaccine Completed Covid-19 Vaccine Completed Pneumococcal Vaccine: 65+ Completed HPV Vaccine Aged Out Colorectal Cancer Screening Discontinued Data reviewed Component Latest Ref Rng & Units 04/13/2022 04/16/2023 WBC 3.70 - 11.00 k/uL 4.94 RBC 4.20 - 6.00 m/uL 5.04 Hemoglobin 13.0 - 17.0 g/dL 15.8 Hematocrit 39.0 - 51.0 % 50.1 MCV 80.0 - 100.0 fL 99.4 MCH 26.0 - 34.0 pg 31.3 MCHC 30.5 - 36.0 g/dL 31.5 RDW-CV 11.5 - 15.0 % 12.7 Platelet Count 150 - 400 k/uL 214 MPV 9.0 - 12.7 fL 10.8 Neut% % 53.7 Abs Neut (ANC) 1.45 - 7.50 k/uL 2.65 Lymph% % 26.5 Abs Lymph 1.00 - 4.00 k/uL 1.31 Bollinger% % 15.4 Abs Bollinger <0.87 k/uL 0.76 Eosin% % 3.4 Abs Eosin <0.46 k/uL 0.17 Baso% % 0.8 Abs Baso <0.11 k/uL 0.04 Immature Gran % % 0.2 IMMATURE GRANS (ABS) <0.10 k/uL <0.03 NRBC /100 WBC 0.0 Absolute nRBC <0.01 k/uL <0.01 DTYPE Auto Color Yellow Yellow Yellow Clarity Clear Clear Clear Glucose, Urine Negative Negative Negative Bilirubin, Urine Negative Negative Negative Ketones, Urine Negative Negative Negative Specific [place], Ur 1.005 - 1.030 1.026 1.023 Hemoglobin/Blood,Ur Negative Negative Negative pH, Urine <8.5 5.5 5.5 Protein, Urine Negative Trace Negative Urobilinogen 0.2-1.0 EU/dL Negative 0.2 EU/dL Nitrites Negative Negative Negative Leukest Negative Negative Negative WBC, Urine 0-5 /HPF 0-5 /HPF 0-5 /HPF RBC, Urine 0-2 /HPF 0-3 /HPF 0-2 /HPF Bacteria Negative /HPF Negative Epithelial Cells /HPF Few None Seen Hyaline Cast 0 /LPF 0 /LPF Protein, Total 6.3 - 8.0 g/dL 6.4 6.4 Albumin 3.9 - 4.9 g/dL 4.3 4.3 Calcium 8.5 - 10.2 mg/dL 9.7 9.7 Bilirubin, Total 0.2 - 1.3 mg/dL 0.5 0.5 Alkaline Phosphatase 38 - 113 U/L 56 62 AST 14 - 40 U/L 20 21 ALT 10 - 54 U/L 19 14 Glucose 74 - 99 mg/dL 120 (H) 101 (H) BUN 9 - 24 mg/dL 24 24 Creatinine 0.73 - 1.22 mg/dL 0.95 1.19 Sodium 136 - 144 mmol/L 140 141 Potassium 3.7 - 5.1 mmol/L 4.5 4.3 Chloride 97 - 105 mmol/L 105 103 CO2 22 - 30 mmol/L 22 29 Anion Gap 9 - 18 mmol/L 13 9 eGFR >=60 mL/min/1.73m 80 61 Total Cholesterol, Nonfasting <200 mg/dL 198 213 (H) Triglycerides, Nonfasting <150 mg/dL 139 201 (H) HDL Cholesterol, Nonfasting >39 mg/dL 46 42 LDL Cholesterol, Nonfasting <100 mg/dL 124 (H) 131 (H) Non HDL Cholesterol, Nonfasting <130 mg/dL 152 (H) 171 (H) VLDL Cholesterol, Nonfasting <30 mg/dL 28 40 (H) Total Chol/HDL Ratio, Nonfasting <5.10 mg/dL 4.30 5.07 LDL/HDL Ratio, Nonfasting <2.54 mg/dL 2.70 (H) 3.12 (H) Hemoglobin A1C 4.3 - 5.6 % 5.6 Estimated Average Glucose mg/dL 114 PSA <2.60 ng/mL <0.02 Vitamin B12 232 - 1,245 pg/mL 292 611 Magnesium 1.7 - 2.3 mg/dL 2.0 2.1 A/P ASSESSMENT/PLAN: 1. Medicare annual wellness visit, subsequent - ICD9: V70.0, ICD10: Z00.00 (primary diagnosis) - Counseled on healthy diet and regular exercise - Follow up for annual exam in one year - advised on getting the RSV. 2. Mixed hyperlipidemia - ICD9: 272.2, ICD10: E78.2 - Controlled - Counseled on healthy diet and regular exercise 3. Essential hypertension - ICD9: 401.9, ICD10: I10 - Controlled - Continue current medications - Recommend home blood pressure monitoring, to bring results to next visit - Encouraged sodium restriction, DASH or Mediterranean diet - Recommend regular aerobic exercise 4. Elevated blood sugar - ICD9: 790.29, ICD10: R73.9 - controlled with diet. 5. Aortic root dilatation (HCC) - ICD9: 447.71, ICD10: I77.810 - discussed checking an echo. Patient prefers to hold off a year. 6. GERD without esophagitis - ICD9: 530.81, ICD10: K21.9 - Continue treatment with Prilosec 20 mg QD 7. Malignant neoplasm of prostate (HCC) - ICD9: 185, ICD10: C61 - clinically stable 8. Low serum vitamin B12 - ICD9: 266.2, ICD10: E53.8 - stable with replacement 9. Adjustment insomnia - ICD9: 307.41, ICD10: F51.02 - stale and not needing Tx. 10. Advance directive discussed with patient - ICD9: V65.49, ICD10: Z71.89 - up to date. Requested Prescriptions Signed Prescriptions Disp Refills omeprazole (PRILOSEC) 20 mg capsule 90 capsule 1 Sig: Take 1 capsule by mouth once daily on an empty stomach. lisinopril (ZESTRIL) 20 mg tablet 90 tablet 0 Sig: Take 1 tablet by mouth once daily. metoprolol succinate ER (TOPROL XL) 50 mg 24 hr tablet 90 tablet 1 Sig: Take 1 tablet by mouth once daily. F/u in a year for extensive exam. Sooner if issues. I spent a total of 40 minutes on the date of the service which included preparing to see the patient, [id number] patient care, completing clinical documentation, performing a medically appropriate examination, counseling and educating the patient/family/caregiver and ordering medications, tests, or procedures. Ross Blandon MD documented in this encounter [facility] 04-16-2023 History of Present illness Narrative FOLLOW UP PODIATRIC OFFICE VISIT Chief Complaint: This 82 year old who presents for follow up:right 3rd toe ingrowing toenail Patient presents to clinic for follow-up right 3rd toe Has ingrowing tendency to right 3rd toe Denies any pain currently but sometimes at night, pressure from sheets causes pain He is here to discuss options PAIN EVALUATION 04/16/2023 1355 Pain Level: 1 Pain Location: Toe Description: Sharp;Stabbing Frequency: Continuous Intervention/Comfort measure: Relaxation;Reposition No results found for: HBA1C PCP: Ross Blandon MD PAST MEDICAL HISTORY Diagnosis Date Advance directive discussed with patient 04/19/2022 Discussed 04/2022: up to date Aortic root dilatation (HCC) 04/18/2021 Arthritis of knee 08/02/2016 DDD (degenerative disc disease), cervical 04/18/2021 May need prn prednisone. DDD (degenerative disc disease), lumbar 03/15/2017 Diverticulosis of colon (without mention of hemorrhage) Diverticulosis of large intestine without hemorrhage 03/21/2018 Added automatically from request for surgery [id number] Elevated blood sugar 04/19/2022 Essential hypertension 01/22/2007 03/11/2019: Home BP Cuff Validated. Home BP: 118/58 Office BP: 128/72 GERD without esophagitis 03/21/2018 Added automatically from request for surgery [id number] H/O BCC skin cancer: other malignant neoplasm of skin 06/21/2010 History of colonic polyps 03/21/2018 Added automatically from request for surgery [id number] History of transfusion Impotence of organic origin 06/03/2002 Insomnia 12/04/2014 Living will on file 04/18/2021 DPA: and then Son (Parveen) Low serum vitamin B12 04/19/2022 Malignant neoplasm of prostate (HCC) 08/22/2005 Medicare annual wellness visit, subsequent 04/18/2021 Medicare Part B: 10/03/2005, Last done: 2// Mixed hyperlipidemia 12/04/2014 Nocturia 12/08/2022 Obstructive sleep apnea 03/15/2017 Marginal result and could not tolerate CPAP. 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 Personal history of malignant melanoma of skin 06/21/2010 Situational depression 11/24/2016 Status post total knee replacement, right 12/07/2016 Tubular adenoma of colon 03/14/20172014--tubular adenoma in mid transverse colon and rectum Urinary hesitancy 12/08/2022 Current Outpatient Medications Medication Sig metoprolol succinate ER (TOPROL XL) 100 mg Take 1/2 tablet by mouth once daily. lisinopril (ZESTRIL) 20 mg tablet Take 1 tablet by mouth once daily. omeprazole (PRILOSEC) 20 mg capsule Take 1 capsule by mouth once daily on an empty stomach. cyanocobalamin (VITAMIN B-12) 100 mcg tab Take 100 mcg by mouth once daily. aspirin, enteric coated (ASPIRIN, ENTERIC COATED) 81 mg EC tablet Take 81 mg by mouth once daily. Take one tablet daily hydroCHLOROthiazide 12.5 mg capsule Take 1 capsule by mouth once daily. (Patient not taking: Reported on 04/16/2023) cyclobenzaprine (FLEXERIL) 10 mg tablet Take 1/2 to 1 tablet by mouth 3 times daily as needed for muscle pain or spasm. (Patient not taking: Reported on 04/16/2023) No current facility-administered medications for this visit. ALLERGIES Allergen Reactions Penicillin G Hives Urticaria Reaction details: hives occurred within hours after administration at age 25 Outcome of reaction: stopped agent Tolerated the following: Penicillin g Zoloft [Sertraline * Other: See Comments nightmares PAST SURGICAL HISTORY Procedure Laterality Date ABDOMINAL SURGERY HX ARTHRP KNE CONDYLE&PLATU MEDIAL&LAT COMPARTMENTS Right 10/30/2016 Knee replacement, total COLONOSCOPY FLX DX W/COLLJ SPEC WHEN PFRMD 05/14/2014 Colonoscopy COLONOSCOPY FLX DX W/COLLJ SPEC WHEN PFRMD 04/29/2018 Colonoscopy COLONOSCOPY FLX DX W/COLLJ SPEC WHEN PFRMD 09/16/2020 COLONOSCOPY W/BIOPSY SINGLE/MULTIPLE 04/29/2010 DESTRUCTION, 1ST LESION 06/19/2012 Amputation/cauterization right medial malleolus EGD ESOPHAGOGASTRODUODENOSCOPY TRANSORAL DIAGNOSTIC 04/29/2018 EGD EYE SURGERY HX HERNIA REPAIR HX JOINT REPLACEMENT HX KNEE ARTHROSCOPY Right 2004 LAPS PROSTECT RETROPUBIC RAD W/NRV SPARING ROBOT 1997 NEUROPLASTY &/TRANSPOS MEDIAN NRV CARPAL TUNNE Right 09/18/2019 Right carpal tunnel release RPR 1ST INGUN HRNA AGE 5 YRS/> REDUCIBLE Right 12/08/2014 [facility] SHOULDER ARTHROSCOPY/SURGERY Right 1988 SHOULDER ARTHROSCOPY/SURGERY Left 1989 SKIN BIOPSY HX TONSILLECTOMY AND ADENOIDECTOMY HX 1944 Physical Exam: OBJECTIVE: Constitutional: Pt is a well developed 82 year old male who is alert, oriented, cooperative and in no apparent distress. Eyes: Following during examination. No redness or drainage. Respiratory: RR normal and nonlabored. Even breathing. No evidence of distress. Psychology: Patient is engaged during conversation. Normal affect and mood. Does not appear depressed or anxious. NVSI unchanged from previous visit. Non-Invasive Vascular Laboratory [facility] Lower Extremity Arterial Physiology Study Bilateral/Complete Date of service/time: 04/14/2022 9:03:58 AM Name: DR. ANDREW PERAZA MD Date of : 1940 Age: 81 years Gender: M Clinical Indication Abnormal pulses. TECHNIQUE -------- An arterial physiological examination was performed, including measurement of blood pressures using continuous wave Doppler and recording of plethysmographic with or without Doppler waveforms at the below-mentioned limb segments. FINDINGS -------- RIGHT SIDE AT REST Right Doppler Waveforms Dorsalis pedis: Multiphasic. Post tibial: Multiphasic. Right Pressures Brachial: 130 mmHg Ankle dorsalis pedis: 143 mmHg MARKOS: 1.08 Ankle posterior tibial: 166 mmHg MARKOS: 1.25 Digit: 114 mmHg Right PVR Waveforms Ankle: Normal. Digit: Normal. LEFT SIDE AT REST Left Doppler Waveforms Dorsalis pedis: Multiphasic. Post tibial: Multiphasic. Left Pressures Brachial: 133 mmHg Ankle dorsalis pedis: 152 mmHg MARKOS: 1.14 Ankle posterior tibial: 149 mmHg MARKOS: 1.12 Digit: 111 mmHg Left PVR Waveforms Ankle: Normal. Digit: Normal. IMPRESSION RIGHT SIDE Resting right ankle brachial index: 1.25 Right toe brachial index: 0.86 Normal ankle brachial index at rest in the right leg. Normal toe brachial index at rest in the right leg. Right ankle: Normal at rest. LEFT SIDE Resting left ankle brachial index: 1.14 Left toe brachial index: 0.83 Normal ankle brachial index at rest in the left leg. Normal toe brachial index at rest in the left leg. Left ankle: Normal at rest. Technologist: Porsche Parnell RVT, [facility] Ordering physician: APOLINAR BLEVINS Interpreting physician: EDDI Presley DO Dermatological: Right 3rd toe lateral nail border shows slight incurvation No signs of infection Musculoskeletal/Orthopaedic: Patient has mild pain to palpation of right 3rd toe lateral nail border ASSESSMENT: (B35.1) Onychomycosis (primary encounter diagnosis) (M79.674) Pain in toe of right foot PLAN: Discussed tendency for right 3rd toe to be ingrown. No signs of infection currently Reviewed past pvr. He has adequate perfusion in event he wishes to pursue partial nail vs total nail matrixectomy He has no pain currently, except for occasional pain from pressure from his sheets. Discussed past improvement with conservative debridement. Discussed procedure today After discussion, patient chose for slant back. If this fails to help lessen pain, will plan for partial nail matrixectomy In order to perform a complete physical exam, one nail slant back was performed. This incidental service is integral to the evaluation and management visit in order to appropriately manage and treat the patient (for their complaint or for this visit). Apolinar Blevins DPM AMB ROOMING INTAKE FLOWSHEET DATA Pain Pain Level: 1 Pain Location: Toe Description: Sharp, Stabbing Frequency: Continuous Intervention/Comfort measure: Relaxation, Reposition Patient presents with: Right 3rd Toe - Established Patient, Follow Up, Pain, Nail Check Patient presents for possible matrixectomy to right 3rd toe. Denies any redness, Swelling or drainage. documented in this encounter [facility] 04-11-2023 Miscellaneous Notes Pt calling in stating he has an appt with Dr. Blandon at the end of next week and needs orders placed for lab work. Per [facility], labs were placed last April and expected date was 04/06/23. Pt notified the orders are there and he can come in at anytime to get them drawn. Pt verbalizes understanding. documented in this encounter [facility] 12-26-2022 Miscellaneous Notes Images from the original note were not included. Al Mullen PA-C Minter, Danelle, RN; [facility] [place] [facility] Pool 18 hours ago (1:32 PM) I replied to his My chart message Thank you, Sebas Patient called in stating that his symptoms that he was previously seen for have gotten worse. Patient instructed to go the the ED if unable to void and states that he almost went last night but was able to void early this am. Pt states that he is also going to send a [employer] message. Nita Tovar RN documented in this encounter [facility] 12-12-2022 History of Present illness Narrative Images from the original note were not included. 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 Alfredo for CaP He was given Flomax for Nocturia however, without having a prostate I suspect he sill not see much benefit And in fact after discussion he feel his leaking may ne somewhat worse. I recommended stopping Flomax And trial Vesicare 10 mg especially with planned trip with long flight to try taking it prior to getting on flight and see If urgency and leak is better controlled. We dicussed SE's and if he is unable to urinate for more than 4-6 hrs to stop Vesicare And he should go back to his current status. If this does happen I may have him get a Cystoscopy to look at urethra and anastomosis LUTS: DYSURIA: no URGENCY: Yes FREQUENCY:6 per day NOCTURIA: 4 per night STRAINING TO VOID: No EMPTIES COMPLETELY: Yes UTI: No GROSS HEMATURIA: no UA DIPSTICK POSITIVE ONLY: no Other symptoms: LABS: No results found for: TESTOST No results found for: TESTFREE PSA (ng/mL) Date Value 04/13/2022 <0.02 03/09/2017 <0.03 12/01/2014 <0.03 01/18/2012 <0.03 Hematocrit (%) Date Value 03/09/2021 46.9 08/13/2020 45.9 07/08/2020 48.3 PSA (ng/mL) Date Value 04/13/2022 <0.02 03/09/2017 <0.03 12/01/2014 <0.03 01/18/2012 <0.03 Creatinine Date Value Ref Range Status 04/13/2022 0.95 0.73 - 1.22 mg/dL Final 03/09/2021 1.05 0.73 - 1.22 mg/dL Final 07/08/2020 1.11 0.73 - 1.22 mg/dL Final 03/30/2020 0.93 0.73 - 1.22 mg/dL Final . MEDICATIONS: aspirin, enteric coated (ASPIRIN, ENTERIC COATED) 81 mg EC tablet Take 81 mg by mouth once daily. Take one tablet daily cyanocobalamin (VITAMIN B-12) 100 mcg tab Take 100 mcg by mouth once daily. cyclobenzaprine (FLEXERIL) 10 mg tablet Take 1/2 to 1 tablet by mouth 3 times daily as needed for muscle pain or spasm. hydroCHLOROthiazide 12.5 mg capsule Take 1 capsule by mouth once daily. lisinopril (ZESTRIL) 20 mg tablet Take 1 tablet by mouth once daily. metoprolol succinate ER (TOPROL XL) 100 mg Take 1/2 tablet by mouth once daily. omeprazole (PRILOSEC) 20 mg capsule Take 1 capsule by mouth once daily on an empty stomach. tamsulosin (FLOMAX) 0.4 mg Take 1 capsule by mouth daily at bedtime. PAST MEDICAL HISTORY: PAST MEDICAL HISTORY Diagnosis Date Advance directive discussed with patient 04/19/2022 Discussed 04/2022: up to date Aortic root dilatation (HCC) 04/18/2021 Arthritis of knee 08/02/2016 DDD (degenerative disc disease), cervical 04/18/2021 May need prn prednisone. DDD (degenerative disc disease), lumbar 03/15/2017 Diverticulosis of colon (without mention of hemorrhage) Diverticulosis of large intestine without hemorrhage 03/21/2018 Added automatically from request for surgery [id number] Elevated blood sugar 04/19/2022 Essential hypertension 01/22/2007 03/11/2019: Home BP Cuff Validated. 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 Personal history of malignant melanoma of skin 06/21/2010 Situational depression 11/24/2016 Status post total knee replacement, right 12/07/2016 Tubular adenoma of colon 03/14/20172014--tubular adenoma in mid transverse colon and rectum Urinary hesitancy 12/08/2022 PAST SURGICAL HISTORY: PAST SURGICAL HISTORY Procedure Laterality Date ABDOMINAL SURGERY HX ARTHRP KNE CONDYLE&PLATU MEDIAL&LAT COMPARTMENTS Right 10/30/2016 Knee replacement, total COLONOSCOPY FLX DX W/COLLJ SPEC WHEN PFRMD 05/14/2014 Colonoscopy COLONOSCOPY FLX DX W/COLLJ SPEC WHEN PFRMD 04/29/2018 Colonoscopy COLONOSCOPY FLX DX W/COLLJ SPEC WHEN PFRMD 09/16/2020 COLONOSCOPY W/BIOPSY SINGLE/MULTIPLE 04/29/2010 DESTRUCTION, 1ST LESION 06/19/2012 Amputation/cauterization right medial malleolus EGD ESOPHAGOGASTRODUODENOSCOPY TRANSORAL DIAGNOSTIC 04/29/2018 EGD EYE SURGERY HX HERNIA REPAIR HX JOINT REPLACEMENT HX KNEE ARTHROSCOPY Right 2004 LAPS PROSTECT RETROPUBIC RAD W/NRV SPARING ROBOT 1996 NEUROPLASTY &/TRANSPOS MEDIAN NRV CARPAL TUNNE Right 09/18/2019 Right carpal tunnel release RPR 1ST INGUN HRNA AGE 5 YRS/> REDUCIBLE Right 12/08/2014 Lichenstein [facility] SHOULDER ARTHROSCOPY/SURGERY Right 1988 SHOULDER ARTHROSCOPY/SURGERY Left 1989 SKIN BIOPSY HX TONSILLECTOMY AND ADENOIDECTOMY HX 1944 FAMILY HISTORY: FAMILY HISTORY Problem Relation Age of Onset Hypertension Mother Heart Attack Mother other (diverticulitis) Father Sudden Cardiac Father Prostate Cancer Brother SOCIAL HISTORY: Social Connections: Moderately Integrated (04/18/2022) Social Connection and Isolation Panel [NHANES] Frequency of Communication with Friends and Family: Twice a week Frequency of Social Gatherings with Friends and Family: Once a week Attends [employer] Services: Never Active Member of Clubs or Organizations: Yes Attends Club or Organization Meetings: More than 4 times per year Marital Status: REVIEW OF SYSTEMS: GENERAL: No fever, chills, weight loss, or fatigue. ENMT: Negative CARDIOVASCULAR:NO CHEST PAIN, PALPITATIONS, ANKLE EDEMA RESPIRATORY: No chronic cough, wheezing, dyspnea, hemoptysis. GENITOURINARY: SEE HPI MUSCULOSKELETAL:NO CHRONIC BACK PAIN, ARTHRITIS, CHRONIC NECK PAIN SKIN: NO VARICOSE VEINS, RASH, ABNORMAL ITCHING HEME/LYMPH/IMMUNE:Negative for prolonged bleeding, bruising easily or swollen nodes NEUROLOGICAL: NO HEADACHES, NUMBNESS, SEIZURES, STROKE DIABETES: no All other systems reviewed and are negative PHYSICAL EXAMINATION: Blood pressure 136/78, pulse 94, temperature 36.9 C (98.4 F), temperature source Temporal, resp. rate 14, height 167.6 cm (5' 6), weight 74.6 kg (164 lb 6.4 oz), SpO2 97 %. GENERAL: WNL nutrition, no deformities, healthy appearing NEURO: Awake, alert and oriented x 3 and Normal gait PSYCH: No signs of depression, anxiety, or agitation ENMT (Ear, Nose, Mouth, Throat): No masses, adenopathy, icterus. Thyroid nonpalpable RESP: NL effort, no retractions or purse-lip breathing. CV: No extremity swelling, varices, edema, pallor, erythema GASTROINTESTINAL: Soft, nontender, nondistended, no masses. HERNIAS: None SKIN: No rash, lesions No palpable lymphadenopathy MUSCULOSKELETAL: Extremities normal. No deformities, edema, clubbing or skin discoloration. Prostate surgically removed PROBLEM LIST REVIEW: Yes LABS: Results for orders placed or performed in visit on 12/08/22 URINALYSIS, WITH MICROSCOPIC Result Value Ref Range Color Light Yellow Yellow Clarity Clear Clear Glucose, Urine Negative Trace, Negative Bilirubin, Urine Negative Negative Ketones, Urine Negative Trace, Negative Specific [place], Ur 1.021 1.005 - 1.030 Hemoglobin/Blood,Ur Negative Negative, Trace pH, Urine 6.0 5.0 - 8.0 Protein, Urine Negative Trace, Negative Urobilinogen Negative Negative Nitrites Negative Negative Leuk Esterase Negative Negative, 25 Glory/uL WBC, Urine 0-5 /HPF 0-5 /HPF RBC, Urine 0-3 /HPF 0-3 /HPF URINE CULTURE Specimen: URINE-MIDSTREAM CLEAN CATCH; Urine Random Result Value Ref Range Culture, Urine No growth (<1,000 CFU/ml) PROCEDURES: PVR: 0 ml IMAGING: IMPRESSION/PLAN: 82 year old male with 1. Urinary hesitancy - ICD9: 788.64, ICD10: R39.11 2. Nocturia - ICD9: 788.43, ICD10: R35.1 > Started on Flomax, recommend holding for now > Trial of Vesicare for urgency and Nocturia, will stop immediately if has urine retention > 4 hrs > Urine Culture - Negative > Discussed possible repeat sleep study as well, due to sleep is still a concern > 3 mo. Appt w/ B. JAMESON Mullen, MT, PASharonC for new Rx Follow-up I spent a total of 30 minutes on the date of the service which included preparing to see the patient, face to face patient care, completing clinical documentation, obtaining and/or reviewing separately obtained history, performing a medically appropriate examination, counseling and educating the patient/family/caregiver, ordering medications, tests, or procedures, and care coordination. JAMESON Nixon MT, PA-C Verified name and date of . 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 The patient is here now for an appointment with JAMESON Nixon MT, PA-COV. Procedure: Explained procedure to patient and verbalizes understanding. Performed a PVR. Patient urinated and instructed to empty bladder as much as possible just prior to having PVR done using bladder ultrasound scanner. Results of scan: 0 mL The patient tolerated the procedure well. Plan: Appointment with Al. documented in this encounter [facility] 12-11-2022 Miscellaneous Notes Spoke with pt. States he just wants to stick with 30 day trial of med as discussed at ov. Will contact office if this changes. Pablo Cheney LPN Please find out if patient wants me to send in a 90 day supply as requested by pharmacy. This was just a trial so we started with 30. And I see he is scheduled with urology tomorrow and they may decide on a different treatment plan based on his history. Ally De PA-C Patient has been identified by name and date of : Yes Requested Prescriptions Pending Prescriptions Disp Refills tamsulosin (FLOMAX) 0.4 mg [Pharmacy Med Name: TAMSULOSIN HCL 0.4 MG CAPSULE] 90 capsule 1 Sig: take 1 capsule by mouth at bedtime RX INSTRUCTIONS: Patient aware RX will be sent to pharmacy. No need to notify patient. Domitila Maldonado MA [place] 04/2022 Nov 04/2023 Last refill; 12/2022. Pharmacy requesting 90 days supply. documented in this encounter [facility] 11-23-2022 History of Present illness Narrative Patient presents for Flu vaccine. Denies any problems at this time. Tolerated injection well. Lila Rowe LPN documented in this encounter [facility] 11-15-2022 History of Present illness Narrative Subjective: Patient presents to clinic c/o painful toenails. They state that the nails are especially painful with shoe gear and pressure. Patient states that nails b/l hallux are painful. No other pedal complaints at this time. Patient states no change in medications or medical history since last visit. Objective: Patient presents to clinic ambulating in dress shoes Vasc: DP and PT pulses are faintly palpable bilateral. CFT is less than 5 seconds bilateral. Skin temperature is warm to cool proximal to distal bilateral. There is mild edema or varicosities noted. Neuro: Protective sensation is intact to the foot and toes when tested with the 5.07 SWM bilateral. Vibratory sensation is decreased at the hallux IPJ bilateral. The hallux is downgoing bilateral. Derm: Nails 1-5 b/l are painful, discolored-yellow, thick, crumbly, dystrophic and with subungal debris. Skin is of normal turgor, texture and hair growth is present bilateral. There are no hyperkeratosis, ulcerations, scars, verruca or other lesions noted. Ortho: Muscle strength is 5/5 for all pedal groups tested. Ankle joint DF is full with the knee extended with no pain or crepitus noted. 1st MPJ ROM is full bilateral. Assessment: (B35.1) Onychomycosis (primary encounter diagnosis) (M79.675) Pain in toe of left foot (M79.674) Pain in toe of right foot (R09.89) Diminished pulses in lower extremity Plan: Patient was seen and evaluated. Nails 1-5 bilateral were debrided in length and thickness. Patient is to RTC in 3-4 months. Apolinar Blevins DPM AMB ROOMING INTAKE FLOWSHEET DATA Patient presents with: Left Foot - Established Patient, nail care Right Foot - nail care, Established Patient Mary Rand LPN documented in this encounter [facility] 11-13-2022 Miscellaneous Notes Pharmacist Refill Authorization Review Name: Andrew ePraza MD Date: 11/13/2022 Time: 12:57 PM Refill authorization request(s) received and reviewed under effective consult agreement. Upon review, did confirm that an active patient-provider relationship exists and that the prescriber is a participating physician under the consult agreement. Last office visit in this department: 04/19/2022 Ross Blandon MD Last [facility] visit in this department: Visit date not found Next appointment in this department: 04/20/2023 Ross Blandon MD The medication(s) fall under the following categories: Category 3: Medication(s) does not qualify for pharmacist renewal due to needing a physician consult and review. Renewal request sent to provider for review. Refill need for replacement Order. Requested Prescriptions Pending Prescriptions Disp Refills lisinopril (ZESTRIL) 20 mg tablet 90 tablet 0 Sig: Take 1 tablet by mouth once daily. Number of refills approved in this encounter: 0 Number of refills forwarded to provider for review: 1 Number of refills denied in this encounter: 0 Laura Jones RPh documented in this encounter [facility] 11-07-2022 Miscellaneous Notes Pharmacist Refill Authorization Review Name: Andrew Peraza MD Date: 11/07/2022 Time: 5:01 PM Refill authorization request(s) received and reviewed under effective consult agreement. Upon review, did confirm that an active patient-provider relationship exists and that the prescriber is a participating physician under the consult agreement. Last office visit in this department: 04/19/2022 Ross Blandon MD Last [facility] visit in this department: Visit date not found Next appointment in this department: 04/20/2023 Ross Blandon MD The medication(s) fall under the following categories: Category 3: Medication(s) does not qualify for pharmacist renewal due to needing a physician consult and review. [facility] Collaborative Practice Agreement requires both diagnosis and treatment for this particular therapy documented in Plan section of chart notes for Pharmacist team to approve further refills. Please add to chart at your convenience. Current note say to continue meds but then lists only HCTZ and Toprol as meds for HTN (did not list lisinopril) Renewal request sent to provider for review. Requested Prescriptions Pending Prescriptions Disp Refills lisinopril (ZESTRIL) 20 mg tablet 90 tablet 1 Sig: Take 1 tablet by mouth once daily. Number of refills approved in this encounter: 0 Number of refills forwarded to provider for review: 1 Number of refills denied in this encounter: 0 Eron Rodrigez RPh documented in this encounter [facility] 09-18-2022 Miscellaneous Notes Called patient to reschedule. Patient accepted Nov 15 at 2:15. Mary Rand LPN Patient called. Verified name and date of . Patient received call that appointment for Nov 15, 2023 was cancelled and needs rescheduled. Please call patient to reschedule. Xiao Coyle LPN documented in this encounter [facility] 05-31-2022 History of Present illness Narrative Subjective: Patient presents to clinic c/o painful toenails. They state that the nails are especially painful with shoe gear and pressure. Patient states that nails right hallux and right 3rd are painful. Patient is here to discuss possible removal. He states however that last time he was here, the nails were cut and this helped with his pain. No other pedal complaints at this time. Patient states no change in medications or medical history since last visit. Objective: Patient presents to clinic ambulating in sneakers Vasc: DP and PT pulses are palpable bilateral. CFT is less than 5 seconds bilateral. Skin temperature is warm to cool proximal to distal bilateral. There is no edema or varicosities noted. Neuro: Protective sensation is intact to the foot and toes when tested with the 5.07 SWM bilateral. The hallux is downgoing bilateral. Derm: Nails 1-5 b/l are discolored-yellow, thick, crumbly, dystrophic and with subungal debris. There is ingrowing toenail without ifnection to right hallux medial nail border, right 3rd toenail medial border and left hallux medial and lateral border. Skin is of normal turgor, texture and hair growth is present bilateral. There are no hyperkeratosis, ulcerations, scars, verruca or other lesions noted. Ortho: Muscle strength is 5/5 for all pedal groups tested. Ankle joint DF is full with the knee extended with no pain or crepitus noted. 1st MPJ ROM is full bilateral. Assessment: (B35.1) Onychomycosis (primary encounter diagnosis) (M79.675) Pain in toe of left foot (M79.674) Pain in toe of right foot (R09.89) Diminished pulses in lower extremity Plan: Patient was seen and evaluated. Reviewed pvr. He has what appears to be adequate perfusion to his foot if he wanted to pursue removal of nail, he could He had relief with nail debridement so alternative options would be to have him come every 2-3 months for nail debridement. After discussing options, patient elected to come in every 2-3 months for debridement Nails 1-5 bilateral were debrided in length and thickness. Bleeding encountered to all nails taht are ingrown. Band aide and topical antibiotic applied. Call if any issues arise Apolinar Blevins DPM AMB ROOMING INTAKE FLOWSHEET DATA Pain Pain Level: 2 Pain Location: Toe Description: Dull Patient presents with: Right Great Toe - Ingrown Toenail, Established Patient Left Great Toe - Ingrown Toenail, Established Patient Right 3rd Toe - Established Patient, Ingrown Toenail Mray Rand LPN documented in this encounter [facility] 04-10-2022 Miscellaneous Notes Patient notified and voiced understanding. Domitila Maldonado MA Let patient know non-fasting labs and urine orders placed. Pt called and reports he has an apt in the office on 04-19-22. Checking to see if he needs fasting lab work done. Please review and advise pt. Mee Gardner LPN documented in this encounter [facility] 04-03-2022 History of Present illness Narrative Images from the original note were not included. Initial Podiatric Office Visit: Chief Complaint: This 81 year old male who presents with chief complaint:ingrowing toenail of b/l hallux and right 3rd toe HPI Patinet presents to clinic for evaluation of b/l feet. He has ingrowing toenail of b/l hallux and right 3rd toe. He states that with any degree of walking, he has pain He denies any drainage or pus. PAIN EVALUATION 04/03/2022 0851 Pain Level: 9 Pain Location: Toe Description: Sore;Sharp Duration Amount of Time: -- several months Duration Units: Months Frequency: Intermittent Intervention/Comfort measure: Reposition;Relaxation No results found for: HBA1C PCP: Ross Blandon MD PAST MEDICAL HISTORY Diagnosis Date Aortic root dilatation (HCC) 04/18/2021 Arthritis of knee 08/02/2016 DDD (degenerative disc disease), cervical 04/18/2021 May need prn prednisone. DDD (degenerative disc disease), lumbar 03/15/2017 Diverticulosis of colon (without mention of hemorrhage) Diverticulosis of large intestine without hemorrhage 03/21/2018 Added automatically from request for surgery [id number] Essential hypertension 01/22/2007 03/11/2019: Home BP Cuff Validated. 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 metoprolol succinate ER (TOPROL XL) 100 mg TAKE 1/2 TABLET BY MOUTH ONCE DAILY. hydroCHLOROthiazide (HYDRODIURIL, ESIDRIX) 12.5 mg capsule TAKE 1 CAPSULE BY MOUTH ONCE DAILY. benzonatate (TESSALON PERLE) 100 mg capsule Take 2 capsules by mouth three times daily as needed. (Patient not taking: Reported on 04/03/2022) cyclobenzaprine (FLEXERIL) 10 mg tablet Take 1/2 to 1 tablet by mouth 3 times daily as needed for muscle pain or spasm. (Patient not taking: No sig reported) ondansetron orally disintegrating (ZOFRAN ODT) 4 mg disintegrating tablet Take 1 tablet by mouth every 6 hours as needed for nausea/vomiting. (Patient not taking: No sig reported) Current Facility-Administered Medications Medication Dose Route Frequency perflutren lipid microspheres 1.3 mL in NaCl (PF) 0.9% 10 mL injection (DEFINITY) INTRAVENOUS DIRECTED PRN sodium chloride 0.9 % (flush) 10 mL (BD POSIFLUSH) 10 mL INTRAVENOUS DIRECTED PRN ALLERGIES Allergen Reactions Penicillin G Hives Urticaria Reaction details: hives occurred within hours after administration at age 25 Outcome of reaction: stopped agent Tolerated the following: Penicillin g Zoloft [Sertraline * Other: See Comments nightmares PAST SURGICAL HISTORY Procedure Laterality Date ABDOMINAL SURGERY HX ARTHRP KNE CONDYLE&PLATU MEDIAL&LAT COMPARTMENTS Right 10/30/2016 Knee replacement, total COLONOSCOPY FLX DX W/COLLJ SPEC WHEN PFRMD 05/14/2014 Colonoscopy COLONOSCOPY FLX DX W/COLLJ SPEC WHEN PFRMD 04/29/2018 Colonoscopy COLONOSCOPY FLX DX W/COLLJ SPEC WHEN PFRMD 09/16/2020 COLONOSCOPY W/BIOPSY SINGLE/MULTIPLE 04/29/2010 DESTRUCTION, 1ST LESION 06/19/2012 Amputation/cauterization right medial malleolus EGD ESOPHAGOGASTRODUODENOSCOPY TRANSORAL DIAGNOSTIC 04/29/2018 EGD EYE SURGERY HX HERNIA REPAIR HX JOINT REPLACEMENT HX KNEE ARTHROSCOPY Right 2004 LAPS PROSTECT RETROPUBIC RAD W/NRV SPARING ROBOT 1996 NEUROPLASTY &/TRANSPOS MEDIAN NRV CARPAL TUNNE Right 09/18/2019 Right carpal tunnel release RPR 1ST INGUN HRNA AGE 5 YRS/> REDUCIBLE Right 12/08/2014 [place] SHOULDER ARTHROSCOPY/SURGERY Right 1988 SHOULDER ARTHROSCOPY/SURGERY Left 1989 SKIN BIOPSY HX TONSILLECTOMY AND ADENOIDECTOMY HX 89 FAMILY HISTORY Problem Relation Age of Onset Hypertension Mother Heart Attack Mother other (diverticulitis) Father Sudden Cardiac Father Prostate Cancer Brother Social History Tobacco Use Smoking status: Former Types: Pipe Quit date: 10/04/2006 Years since quittin.5 Smokeless tobacco: Never Tobacco comments: Pt quit smoking pipe. Substance Use Topics Alcohol use: Yes Alcohol/week: 17.5 standard drinks Types: 7 Mixed Drinks per week Drug use: No REVIEW OF SYSTEMS GENERAL: Negative for Malaise, significant weight loss, fever RESPIRATORY: Negative for cough, wheezing and shortness of breath CARDIOVASCULAR: Negative for chest pain, leg swelling and palpitations GI: Negative for abdominal discomfort, blood in stools or black stools and change in bowel habits : Negative for dysuria, frequency and incontinence MUSCULOSKELETAL: Negative for joint pain or swelling, back pain, and muscle pain. SKIN: Negative for lesions, rash, and itching. HEMATOLOGY/LYMPHOLOGY Negative for prolonged bleeding, bruising easily, and swollen nodes. ENDOCRINE: Negative for cold or heat intolerance, polyuria, polydipsia and goiter. NEURO: negative Physical Exam: Constitutional: Pt is a well developed 81 year old male who is alert, oriented and cooperative Eyes: Following during examination. No redness or drainage. Respiratory: RR normal and nonlabored. Even breathing. No evidence of distress or shortness of breath. Psychology: Patient is engaged during conversation. Normal affect and mood. Does not appear depressed or anxious during encounter. Vascular: Dorsalis pedis and posterior tibial pulses nonpalpable as b/l Capillary Fill time < 5 seconds to digits 1-5 b/l Skin temperature warm to cool proximal to distal b/l Hair growth present to digits Neurological: intact light touch/epicritic sensation b/l intact protective sensation no significant neurological deficits Dermatological: Nails 1-5 b/l appear yellow discolored, thick, incurvated. No signs of infection are present. Webspaces clean and dry 1-4 b/l. Skin appears well hydrated and supple. good color, texture, turgor. No open lesions present. No callosities present. Musculoskeletal/Orthopaedic: Patient has pain to palpation of right 3rd toenail, b/l hallux medial nail border Foot type is neutral structurally AJ ROM is full with knee extended and flexed 1st MPJ is full when loaded and no pain or crepitus are noted with ROM. MTJ, STJ are full and free of pain and crepitus. +5/5 muscle strength dorsiflexion, plantarflexion, inversion, eversion b/l Radiographs: n/a ASSESSMENT: (B35.1) Onychomycosis (primary encounter diagnosis) (M79.675) Pain in toe of left foot (M79.674) Pain in toe of right foot (I73.9) PAD (peripheral artery disease) (HCC) (R09.89) Diminished pulses in lower extremity PLAN: Discussed ingrowing toenail of b/l hallux and right 3rd nail. No signs of infection. Discussed options not limited to periodic debridement vs removal via matrixectomy. Would recommend pvr prior to any attempted removal. Toenails 1-5 b/l debrided in length and thickness Apolinar Blevins DPM Podiatry [address] [facility] [id number] Dept: [phone] Dept documented in this encounter [facility] 02-01-2022 Miscellaneous Notes Pt notified of Dr Blandon's message. Pt verbalizes understanding. Pablo Cheney LPN Let patient know script for guaifenesin with codeine sent to pharmacy to help reduce cough at night. I would not expect him to be better in two days. The scripts he was given were to lesson his symptoms. The virus will be taken care of by his immune system and typically viruses last 12-14 days but typically start to improve around days 8-10. The following approved medication requests have been transmitted electronically. Requested Prescriptions Signed Prescriptions Disp Refills codeine-guaiFENesin (ROBITUSSIN AC) 10-100 mg/5 mL syrup 70 mL 0 Sig: Take 5 mL by mouth twice daily as needed for up to 7 days. Authorizing Provider: ROSS BLANDON MD PDMP website checked and validated. All prescriptions have been APPROPRIATELY filled. No suspicious activity was identified. 02/01/2022 by Ross Blandon MD Pt called in and reports he was in [facility] on 01/30/22. He states he was given Mucinex and Tessalon Perles. Pt reports he is not feeling any better, actually worse. He states he has a cough that is keeping him up all night and bringing up a large amount of thick yellow/brown sputum. He also reports he has a crusty nose. Pt denies a fever, SOB, or wheezing. Pt states he uses [facility] in [place], and is asking if provider could send in something stronger for him. Please call and advise. documented in this encounter [facility] 12-29-2021 History of Present illness Narrative Patient came in with complaints of dizziness fever vomiting. Patient says he has only had half a can of Coke and 1 popsicles since yesterday evening. At this time concern for possible dehydration. Patient was referred to the emergency room for labs and possible fluids. Patient was okay with this care plan documented in this encounter [facility] 10-07-2021 Miscellaneous Notes Patient notified and voiced understanding. Patient scheduled. Domitila Maldonado MA Let patient know lipid panel was ok with being off the lipitor. He needs his medicare/extensive visit (40 min) set up for on or after 04/18/2022 documented in this encounter [facility] 07-29-2021 Miscellaneous Notes Went to another fax machine and was able to fax report to [phone], Doris vasquez. Phoned Doris and aware can not get fax to go through either number again this morning. Patient can view results on his my chart, but [facility] can not view on [email or web address]. Doris will see what else can be done to get report. Doris from [facility] calling Dr Pierce had ordered carotid ultrasound and has not received results. Printed report and faxed to [phone]. Did not go. Phoned Doris and was given another fax number [phone]. Did not go again. Phoned and told her will try faxing again in the morning. documented in this encounter [facility] 07-19-2021 History of Present illness Narrative Patient presents for COVID booster. Denies any problems at this time. Tolerated injection well. Lila Rowe LPN documented in this encounter [facility] 09-16-2020 History of Past i llness Narrative Problem Noted Date Resolved Date Positive occult stool blood test 09/16/2020 09/16/2020 Chronic pain of right knee 06/22/201703/20 Right lumbar radiculitis 03/15/2017 019 Intervertebral disc disorder with radiculopathy of lumbar region 01/12/2017 03/20/2018 Overview: Added automatically from request for surgery [id number] Intervertebral disc stenosis of neural canal of lumbar region 01/12/2017 03/20/2018 Overview: Added automatically from request for surgery [id number] Right sided sciatica 12/07/2016 03/20/2018 Situational depression 11/24/2016 8 Arthritis of right knee 10/30/2016 11/01/19 17 Primary osteoarthritis of right knee 09/06/2016 10/31/2016 Overview: Added automatically from request for surgery [id number] Hip bursitis 04/19/2016 08/29/2016 Irritable bowel syndrome 05/14/2014 015 IBS (irritable bowel syndrome) 02/05/2014 0 03/20/2018 Other seborrheic keratosis 06/21/201003/11 Solar lentigo 06/21/2010 07/28/2015 Other and unspecified malign ant neoplasm of scalp and skin of neck 02/23/2010 03/14/2017 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 12/19/2009 03/14/2017 Actinic Keratosis (Premalignant AK) 12/19/2009 03/14/2017 Actinic Damage///Sun-damaged skin 12/19/2009 12/19/2009 Irritated//Inflamed Seborrheic Keratosis 010 03/11/2015 Actinic Damage///Sun-damaged skin 12/19/2009 03/14/2017 Contact dermatitis and other eczema due to plants (except food) 09/14/2006 03/14/2017 Contact dermatitis and other eczema, due to unspecified cause 09/14/2006 03/14/2017 Unspecified pruritic disorder 09/14/2006 Seborrheic dermatitis, unspecified 09/14/2006 03/14/2017 Allergic rhinitis, cause unspecified 06/21/2006 03/14/2017 Other and unspecified hyperlipidemia 03/09/2005 12/10/2014 Esophageal reflux 02/24/2005 03/14/2017 Tear of lateral cartilage or meniscus of knee, c urrent 09/21/2003 08/29/2016 Follow-up examination, following other surgery 0 09/21/2003 08/29/2016 documented as of this encounter (statuses as of 06/23/2021) [facility]-15-2021 History of Past illness Narrative* Problem Noted Date Resolved Date Positive occult stool blood test 09/16/2020 09/16/2020 Chronic pain of right knee 06/22/201703/20 Right lumbar radiculitis 03/15/2017 019 Intervertebral disc disorder with radiculopathy of lumbar region 01/12/2017 03/20/2018 Overview: Added automatically from request for surgery [id number] Intervertebral disc stenosis of neural canal of lumbar region 01/12/2017 03/20/2018 Overview: Added automatically from request for surgery [id number] Right sided sciatica 12/07/2016 03/20/2018 Situational depression 11/24/2016 8 Arthritis of right knee 10/30/2016 11/01/19 17 Primary osteoarthritis of right knee 09/06/2016 10/31/2016 Overview: Added automatically from request for surgery [id number] Hip bursitis 04/19/2016 08/29/2016 Irritable bowel syndrome 05/14/2014 015 IBS (irritable bowel syndrome) 02/05/2014 0 03/20/2018 Other seborrheic keratosis 06/21/201003/11 Solar lentigo 06/21/2010 07/28/2015 Other and unspecified malign ant neoplasm of scalp and skin of neck 02/23/2010 03/14/2017 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 12/19/2009 03/14/2017 Actinic Keratosis (Premalignant AK) 12/19/2009 03/14/2017 Actinic Damage///Sun-damaged skin 12/19/2009 12/19/2009 Irritated//Inflamed Seborrheic Keratosis 010 03/11/2015 Actinic Damage///Sun-damaged skin 12/19/2009 03/14/2017 Contact dermatitis and other eczema due to plants (except food) 09/14/2006 03/14/2017 Contact dermatitis and other eczema, due to unspecified cause 09/14/2006 03/14/2017 Unspecified pruritic disorder 09/14/2006 Seborrheic dermatitis, unspecified 09/14/2006 03/14/2017 Allergic rhinitis, cause unspecified 06/21/2006 03/14/2017 Other and unspecified hyperlipidemia 03/09/2005 12/10/2014 Esophageal reflux 02/24/2005 03/14/2017 Tear of lateral cartilage or meniscus of knee, c urrent 09/21/2003 08/29/2016 Follow-up examination, following other surgery 0 09/21/2003 08/29/2016 documented as of this encounter (statuses as of 07/19/2021) [facility] History of Past illness Narrative* Problem Noted Date Resolved Date Positive occult stool blood test 09/16/2020 09/16/2020 Chronic pain of right knee 06/22/201703/20 Right lumbar radiculitis 03/15/2017 019 Intervertebral disc disorder with radiculopathy of lumbar region 01/12/2017 03/20/2018 Overview: Added automatically from request for surgery [id number] Intervertebral disc stenosis of neural canal of lumbar region 01/12/2017 03/20/2018 Overview: Added automatically from request for surgery [id number] Right sided sciatica 12/07/2016 03/20/2018 Situational depression 11/24/2016 8 Arthritis of right knee 10/30/2016 11/01/19 17 Primary osteoarthritis of right knee 09/06/2016 10/31/2016 Overview: Added automatically from request for surgery [id number] Hip bursitis 04/19/2016 08/29/2016 Irritable bowel syndrome 05/14/2014 015 IBS (irritable bowel syndrome) 02/05/2014 0 03/20/2018 Other seborrheic keratosis 06/21/201003/11 Solar lentigo 06/21/2010 07/28/2015 Other and unspecified malign ant neoplasm of scalp and skin of neck 02/23/2010 03/14/2017 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 12/19/2009 03/14/2017 Actinic Keratosis (Premalignant AK) 12/19/2009 03/14/2017 Actinic Damage///Sun-damaged skin 12/19/2009 12/19/2009 Irritated//Inflamed Seborrheic Keratosis 010 03/11/2015 Actinic Damage///Sun-damaged skin 12/19/2009 03/14/2017 Contact dermatitis and other eczema due to plants (except food) 09/14/2006 03/14/2017 Contact dermatitis and other eczema, due to unspecified cause 09/14/2006 03/14/2017 Unspecified pruritic disorder 09/14/2006 Seborrheic dermatitis, unspecified 09/14/2006 03/14/2017 Allergic rhinitis, cause unspecified 06/21/2006 03/14/2017 Other and unspecified hyperlipidemia 03/09/2005 12/10/2014 Esophageal reflux 02/24/2005 03/14/2017 Tear of lateral cartilage or meniscus of knee, c davidat 09/21/2003 08/29/2016 Follow-up examination, following other surgery 0 09/21/2003 08/29/2016 documented as of this encounter (statuses as of 07/29/2021) [facility] History of Past illness Narrative* Problem Noted Date Resolved Date Positive occult stool blood test 09/16/2020 09/16/2020 Chronic pain of right knee 06/22/201703/20 Right lumbar radiculitis 03/15/2017 019 Intervertebral disc disorder with radiculopathy of lumbar region 01/12/2017 03/20/2018 Overview: Added automatically from request for surgery [id number] Intervertebral disc stenosis of neural canal of lumbar region 01/12/2017 03/20/2018 Overview: Added automatically from request for surgery [id number] Right sided sciatica 12/07/2016 03/20/2018 Situational depression 11/24/2016 8 Arthritis of right knee 10/30/2016 11/01/19 17 Primary osteoarthritis of right knee 09/06/2016 10/31/2016 Overview: Added automatically from request for surgery [id number] Hip bursitis 04/19/2016 08/29/2016 Irritable bowel syndrome 05/14/2014 015 IBS (irritable bowel syndrome) 02/05/2014 0 03/20/2018 Other seborrheic keratosis 06/21/201003/11 Solar lentigo 06/21/2010 07/28/2015 Other and unspecified malign ant neoplasm of scalp and skin of neck 02/23/2010 03/14/2017 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 12/19/2009 03/14/2017 Actinic Keratosis (Premalignant AK) 12/19/2009 03/14/2017 Actinic Damage///Sun-damaged skin 12/19/2009 12/19/2009 Irritated//Inflamed Seborrheic Keratosis 010 03/11/2015 Actinic Damage///Sun-damaged skin 12/19/2009 03/14/2017 Contact dermatitis and other eczema due to plants (except food) 09/14/2006 03/14/2017 Contact dermatitis and other eczema, due to unspecified cause 09/14/2006 03/14/2017 Unspecified pruritic disorder 09/14/2006 Seborrheic dermatitis, unspecified 09/14/2006 03/14/2017 Allergic rhinitis, cause unspecified 06/21/2006 03/14/2017 Other and unspecified hyperlipidemia 03/09/2005 12/10/2014 Esophageal reflux 02/24/2005 03/14/2017 Tear of lateral cartilage or meniscus of knee, c urrent 09/21/2003 08/29/2016 Follow-up examination, following other surgery 0 09/21/2003 08/29/2016 documented as of this encounter (statuses as of 10/07/2021) [facility] History of Past illness Narrative* Problem Noted Date Resolved Date Positive occult stool blood test 09/16/2020 09/16/2020 Chronic pain of right knee 06/22/201703/20 Right lumbar radiculitis 03/15/2017 019 Intervertebral disc disorder with radiculopathy of lumbar region 01/12/2017 03/20/2018 Overview: Added automatically from request for surgery [id number] Intervertebral disc stenosis of neural canal of lumbar region 01/12/2017 03/20/2018 Overview: Added automatically from request for surgery [id number] Right sided sciatica 12/07/2016 03/20/2018 Situational depression 11/24/2016 8 Arthritis of right knee 10/30/2016 11/01/19 17 Primary osteoarthritis of right knee 09/06/2016 10/31/2016 Overview: Added automatically from request for surgery [id number] Hip bursitis 04/19/2016 08/29/2016 Irritable bowel syndrome 05/14/2014 015 IBS (irritable bowel syndrome) 02/05/2014 0 03/20/2018 Other seborrheic keratosis 06/21/201003/11 Solar lentigo 06/21/2010 07/28/2015 Other and unspecified malign ant neoplasm of scalp and skin of neck 02/23/2010 03/14/2017 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 12/19/2009 03/14/2017 Actinic Keratosis (Premalignant AK) 12/19/2009 03/14/2017 Actinic Damage///Sun-damaged skin 12/19/2009 12/19/2009 Irritated//Inflamed Seborrheic Keratosis 010 03/11/2015 Actinic Damage///Sun-damaged skin 12/19/2009 03/14/2017 Contact dermatitis and other eczema due to plants (except food) 09/14/2006 03/14/2017 Contact dermatitis and other eczema, due to unspecified cause 09/14/2006 03/14/2017 Unspecified pruritic disorder 09/14/2006 Seborrheic dermatitis, unspecified 09/14/2006 03/14/2017 Allergic rhinitis, cause unspecified 06/21/2006 03/14/2017 Other and unspecified hyperlipidemia 03/09/2005 12/10/2014 Esophageal reflux 02/24/2005 03/14/2017 Tear of lateral cartilage or meniscus of knee, c urrent 09/21/2003 08/29/2016 Follow-up examination, following other surgery 0 09/21/2003 08/29/2016 documented as of this encounter (statuses as of 12/24/2021) [facility] History of Past illness Narrative* Problem Noted Date Resolved Date Positive occult stool blood test 09/16/2020 09/16/2020 Chronic pain of right knee 06/22/201703/20 Right lumbar radiculitis 03/15/2017 019 Intervertebral disc disorder with radiculopathy of lumbar region 01/12/2017 03/20/2018 Overview: Added automatically from request for surgery [id number] Intervertebral disc stenosis of neural canal of lumbar region 01/12/2017 03/20/2018 Overview: Added automatically from request for surgery [id number] Right sided sciatica 12/07/2016 03/20/2018 Situational depression 11/24/2016 8 Arthritis of right knee 10/30/2016 11/01/19 17 Primary osteoarthritis of right knee 09/06/2016 10/31/2016 Overview: Added automatically from request for surgery [id number] Hip bursitis 04/19/2016 08/29/2016 Irritable bowel syndrome 05/14/2014 015 IBS (irritable bowel syndrome) 02/05/2014 0 03/20/2018 Other seborrheic keratosis 06/21/201003/11 Solar lentigo 06/21/2010 07/28/2015 Other and unspecified malign ant neoplasm of scalp and skin of neck 02/23/2010 03/14/2017 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 12/19/2009 03/14/2017 Actinic Keratosis (Premalignant AK) 12/19/2009 03/14/2017 Actinic Damage///Sun-damaged skin 12/19/2009 12/19/2009 Irritated//Inflamed Seborrheic Keratosis 010 03/11/2015 Actinic Damage///Sun-damaged skin 12/19/2009 03/14/2017 Contact dermatitis and other eczema due to plants (except food) 09/14/2006 03/14/2017 Contact dermatitis and other eczema, due to unspecified cause 09/14/2006 03/14/2017 Unspecified pruritic disorder 09/14/2006 Seborrheic dermatitis, unspecified 09/14/2006 03/14/2017 Allergic rhinitis, cause unspecified 06/21/2006 03/14/2017 Other and unspecified hyperlipidemia 03/09/2005 12/10/2014 Esophageal reflux 02/24/2005 03/14/2017 Tear of lateral cartilage or meniscus of knee, c urrent 09/21/2003 08/29/2016 Follow-up examination, following other surgery 0 09/21/2003 08/29/2016 documented as of this encounter (statuses as of 12/29/2021) [facility] History of Past illness Narrative* Problem Noted Date Resolved Date Positive occult stool blood test 09/16/2020 09/16/2020 Chronic pain of right knee 06/22/201703/20 Right lumbar radiculitis 03/15/2017 019 Intervertebral disc disorder with radiculopathy of lumbar region 01/12/2017 03/20/2018 Overview: Added automatically from request for surgery [id number] Intervertebral disc stenosis of neural canal of lumbar region 01/12/2017 03/20/2018 Overview: Added automatically from request for surgery [id number] Right sided sciatica 12/07/2016 03/20/2018 Situational depression 11/24/2016 8 Arthritis of right knee 10/30/2016 11/01/19 17 Primary osteoarthritis of right knee 09/06/2016 10/31/2016 Overview: Added automatically from request for surgery [id number] Hip bursitis 04/19/2016 08/29/2016 Irritable bowel syndrome 05/14/2014 015 IBS (irritable bowel syndrome) 02/05/2014 0 03/20/2018 Other seborrheic keratosis 06/21/201003/11 Solar lentigo 06/21/2010 07/28/2015 Other and unspecified malign ant neoplasm of scalp and skin of neck 02/23/2010 03/14/2017 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 12/19/2009 03/14/2017 Actinic Keratosis (Premalignant AK) 12/19/2009 03/14/2017 Actinic Damage///Sun-damaged skin 12/19/2009 12/19/2009 Irritated//Inflamed Seborrheic Keratosis 010 03/11/2015 Actinic Damage///Sun-damaged skin 12/19/2009 03/14/2017 Contact dermatitis and other eczema due to plants (except food) 09/14/2006 03/14/2017 Contact dermatitis and other eczema, due to unspecified cause 09/14/2006 03/14/2017 Unspecified pruritic disorder 09/14/2006 Seborrheic dermatitis, unspecified 09/14/2006 03/14/2017 Allergic rhinitis, cause unspecified 06/21/2006 03/14/2017 Other and unspecified hyperlipidemia 03/09/2005 12/10/2014 Esophageal reflux 02/24/2005 03/14/2017 Tear of lateral cartilage or meniscus of knee, c davidat 09/21/2003 08/29/2016 Follow-up examination, following other surgery 0 09/21/2003 08/29/2016 documented as of this encounter (statuses as of 02/01/2022) [facility] History of Past illness Narrative* Problem Noted Date Resolved Date Positive occult stool blood test 09/16/2020 09/16/2020 Chronic pain of right knee 06/22/201703/20 Right lumbar radiculitis 03/15/2017 019 Intervertebral disc disorder with radiculopathy of lumbar region 01/12/2017 03/20/2018 Overview: Added automatically from request for surgery [id number] Intervertebral disc stenosis of neural canal of lumbar region 01/12/2017 03/20/2018 Overview: Added automatically from request for surgery [id number] Right sided sciatica 12/07/2016 03/20/2018 Situational depression 11/24/2016 8 Arthritis of right knee 10/30/2016 11/01/19 17 Primary osteoarthritis of right knee 09/06/2016 10/31/2016 Overview: Added automatically from request for surgery [id number] Hip bursitis 04/19/2016 08/29/2016 Irritable bowel syndrome 05/14/2014 015 IBS (irritable bowel syndrome) 02/05/2014 0 03/20/2018 Other seborrheic keratosis 06/21/201003/11 Solar lentigo 06/21/2010 07/28/2015 Other and unspecified malign ant neoplasm of scalp and skin of neck 02/23/2010 03/14/2017 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 12/19/2009 03/14/2017 Actinic Keratosis (Premalignant AK) 12/19/2009 03/14/2017 Actinic Damage///Sun-damaged skin 12/19/2009 12/19/2009 Irritated//Inflamed Seborrheic Keratosis 010 03/11/2015 Actinic Damage///Sun-damaged skin 12/19/2009 03/14/2017 Contact dermatitis and other eczema due to plants (except food) 09/14/2006 03/14/2017 Contact dermatitis and other eczema, due to unspecified cause 09/14/2006 03/14/2017 Unspecified pruritic disorder 09/14/2006 Seborrheic dermatitis, unspecified 09/14/2006 03/14/2017 Allergic rhinitis, cause unspecified 06/21/2006 03/14/2017 Other and unspecified hyperlipidemia 03/09/2005 12/10/2014 Esophageal reflux 02/24/2005 03/14/2017 Tear of lateral cartilage or meniscus of knee, c urrent 09/21/2003 08/29/2016 Follow-up examination, following other surgery 0 09/21/2003 08/29/2016 documented as of this encounter (statuses as of 04/03/2022) [facility] History of Past illness Narrative* Problem Noted Date Resolved Date Positive occult stool blood test 09/16/2020 09/16/2020 Chronic pain of right knee 06/22/201703/20 Right lumbar radiculitis 03/15/2017 019 Intervertebral disc disorder with radiculopathy of lumbar region 01/12/2017 03/20/2018 Overview: Added automatically from request for surgery [id number] Intervertebral disc stenosis of neural canal of lumbar region 01/12/2017 03/20/2018 Overview: Added automatically from request for surgery [id number] Right sided sciatica 12/07/2016 03/20/2018 Situational depression 11/24/2016 8 Arthritis of right knee 10/30/2016 11/01/19 17 Primary osteoarthritis of right knee 09/06/2016 10/31/2016 Overview: Added automatically from request for surgery [id number] Hip bursitis 04/19/2016 08/29/2016 Irritable bowel syndrome 05/14/2014 015 IBS (irritable bowel syndrome) 02/05/2014 0 03/20/2018 Other seborrheic keratosis 06/21/201003/11 Solar lentigo 06/21/2010 07/28/2015 Other and unspecified malign ant neoplasm of scalp and skin of neck 02/23/2010 03/14/2017 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 12/19/2009 03/14/2017 Actinic Keratosis (Premalignant AK) 12/19/2009 03/14/2017 Actinic Damage///Sun-damaged skin 12/19/2009 12/19/2009 Irritated//Inflamed Seborrheic Keratosis 010 03/11/2015 Actinic Damage///Sun-damaged skin 12/19/2009 03/14/2017 Contact dermatitis and other eczema due to plants (except food) 09/14/2006 03/14/2017 Contact dermatitis and other eczema, due to unspecified cause 09/14/2006 03/14/2017 Unspecified pruritic disorder 09/14/2006 Seborrheic dermatitis, unspecified 09/14/2006 03/14/2017 Allergic rhinitis, cause unspecified 06/21/2006 03/14/2017 Other and unspecified hyperlipidemia 03/09/2005 12/10/2014 Esophageal reflux 02/24/2005 03/14/2017 Tear of lateral cartilage or meniscus of knee, c urrent 09/21/2003 08/29/2016 Follow-up examination, following other surgery 0 09/21/2003 08/29/2016 documented as of this encounter (statuses as of 04/11/2022) [facility] History of Past illness Narrative* Problem Noted Date Resolved Date Positive occult stool blood test 09/16/2020 09/16/2020 Chronic pain of right knee 06/22/201703/20 Right lumbar radiculitis 03/15/2017 019 Intervertebral disc disorder with radiculopathy of lumbar region 01/12/2017 03/20/2018 Overview: Added automatically from request for surgery [id number] Intervertebral disc stenosis of neural canal of lumbar region 01/12/2017 03/20/2018 Overview: Added automatically from request for surgery [id number] Right sided sciatica 12/07/2016 03/20/2018 Situational depression 11/24/2016 8 Arthritis of right knee 10/30/2016 11/01/19 17 Primary osteoarthritis of right knee 09/06/2016 10/31/2016 Overview: Added automatically from request for surgery [id number] Hip bursitis 04/19/2016 08/29/2016 Irritable bowel syndrome 05/14/2014 015 IBS (irritable bowel syndrome) 02/05/2014 0 03/20/2018 Other seborrheic keratosis 06/21/201003/11 Solar lentigo 06/21/2010 07/28/2015 Other and unspecified malign ant neoplasm of scalp and skin of neck 02/23/2010 03/14/2017 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 12/19/2009 03/14/2017 Actinic Keratosis (Premalignant AK) 12/19/2009 03/14/2017 Actinic Damage///Sun-damaged skin 12/19/2009 12/19/2009 Irritated//Inflamed Seborrheic Keratosis 010 03/11/2015 Actinic Damage///Sun-damaged skin 12/19/2009 03/14/2017 Contact dermatitis and other eczema due to plants (except food) 09/14/2006 03/14/2017 Contact dermatitis and other eczema, due to unspecified cause 09/14/2006 03/14/2017 Unspecified pruritic disorder 09/14/2006 Seborrheic dermatitis, unspecified 09/14/2006 03/14/2017 Allergic rhinitis, cause unspecified 06/21/2006 03/14/2017 Other and unspecified hyperlipidemia 03/09/2005 12/10/2014 Esophageal reflux 02/24/2005 03/14/2017 Tear of lateral cartilage or meniscus of knee, c urrent 09/21/2003 08/29/2016 Follow-up examination, following other surgery 0 09/21/2003 08/29/2016 documented as of this encounter (statuses as of 05/31/2022) [facility] History of Past illness Narrative* Problem Noted Date Diagnosed Date Resolved Date Positive occult stool blood test 09/16/2020 09/16/2020 Chronic pain of right knee 06/22/2017 0 03/20/2018 Right lumbar radiculitis 03/15/2017 Intervertebral disc disorder with radiculopathy of lumbar region 01/12/2017 9 Overview: Added automatically from request for surgery [id number] Intervertebral disc stenosis of neural canal of lumbar region 01/12/2017 03/20/2018 Overview: Added automatically from request for surgery [id number] Right sided sciatica 12/07/2016 019 Situational depression 11/24/201603/14 Arthritis of right knee 10/30/201610/04 Primary osteoarthritis of right knee 09/06/2016 10/31/2016 Overview: Added automatically from request for surgery [id number] Hip bursitis 04/19/2016 08/29/2016 Irritable bowel syndrome 05/14/201402/2015 IBS (irritable bowel syndrome) 02/05/2014 03/20/2018 Other seborrheic keratosis 06/21/2010 0 03/11/2015 Solar lentigo 06/21/2010 07/28/2015 Other and unspecified malign ant neoplasm of scalp and skin of neck 02/23/2010 03/14/2017 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 12/19/2009 03/14/2017 Actinic Keratosis (Premalignant AK) 12/19/2009 03/14/2017 Actinic Damage///Sun-damaged skin 12/19/2009 12/19/2009 Irritated//Inflamed Seborrheic Keratosis 12/19/2009 03/11/2015 Actinic Damage///Sun-damaged skin 12/19/2009 03/14/2017 Contact dermatitis and other eczema due to plants (except food) 09/14/2006 03/14/2017 Contact dermatitis and other eczema, due to unspecified cause 09/14/2006 03/14/2017 Unspecified pruritic disorder 09/14/2006 03/14/2017 Seborrheic dermatitis, unspecified 09/14/2006 03/14/2017 Allergic rhinitis, cause unspecified 06/21/2006 03/14/2017 Other and unspecified hyperlipidemia 03/09/2005 12/10/2014 Esophageal reflux 02/24/2005 03/14/2017 Tear of lateral cartilage or meniscus of knee, current 09/21/2003 08/29/2016 Follow-up examination, follo wing other surgery 09/21/2003 08/29/2016 documented as of this encounter (statuses as of 09/18/2022) [facility] History of Past illness Narrative* Problem Noted Date Diagnosed Date Resolved Date Positive occult stool blood test 09/16/2020 09/16/2020 Chronic pain of right knee 06/22/2017 0 03/20/2018 Right lumbar radiculitis 03/15/2017 Intervertebral disc disorder with radiculopathy of lumbar region 01/12/2017 9 Overview: Added automatically from request for surgery [id number] Intervertebral disc stenosis of neural canal of lumbar region 01/12/2017 03/20/2018 Overview: Added automatically from request for surgery [id number] Right sided sciatica 12/07/2016 019 Situational depression 11/24/201603/14 Arthritis of right knee 10/30/201610/04 Primary osteoarthritis of right knee 09/06/2016 10/31/2016 Overview: Added automatically from request for surgery [id number] Hip bursitis 04/19/2016 08/29/2016 Irritable bowel syndrome 05/14/201402/2015 IBS (irritable bowel syndrome) 02/05/2014 03/20/2018 Other seborrheic keratosis 06/21/2010 0 03/11/2015 Solar lentigo 06/21/2010 07/28/2015 Other and unspecified malign ant neoplasm of scalp and skin of neck 02/23/2010 03/14/2017 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 12/19/2009 03/14/2017 Actinic Keratosis (Premalignant AK) 12/19/2009 03/14/2017 Actinic Damage///Sun-damaged skin 12/19/2009 12/19/2009 Irritated//Inflamed Seborrheic Keratosis 12/19/2009 03/11/2015 Actinic Damage///Sun-damaged skin 12/19/2009 03/14/2017 Contact dermatitis and other eczema due to plants (except food) 09/14/2006 03/14/2017 Contact dermatitis and other eczema, due to unspecified cause 09/14/2006 03/14/2017 Unspecified pruritic disorder 09/14/2006 03/14/2017 Seborrheic dermatitis, unspecified 09/14/2006 03/14/2017 Allergic rhinitis, cause unspecified 06/21/2006 03/14/2017 Other and unspecified hyperlipidemia 03/09/2005 12/10/2014 Esophageal reflux 02/24/2005 03/14/2017 Tear of lateral cartilage or meniscus of knee, current 09/21/2003 08/29/2016 Follow-up examination, follo wing other surgery 09/21/2003 08/29/2016 documented as of this encounter (statuses as of 11/08/2022) [facility] History of Past illness Narrative* Problem Noted Date Diagnosed Date Resolved Date Positive occult stool blood test 09/16/2020 09/16/2020 Chronic pain of right knee 06/22/2017 0 03/20/2018 Right lumbar radiculitis 03/15/2017 Intervertebral disc disorder with radiculopathy of lumbar region 01/12/2017 9 Overview: Added automatically from request for surgery [id number] Intervertebral disc stenosis of neural canal of lumbar region 01/12/2017 03/20/2018 Overview: Added automatically from request for surgery [id number] Right sided sciatica 12/07/2016 019 Situational depression 11/24/201603/14 Arthritis of right knee 10/30/201610/04 Primary osteoarthritis of right knee 09/06/2016 10/31/2016 Overview: Added automatically from request for surgery [id number] Hip bursitis 04/19/2016 08/29/2016 Irritable bowel syndrome 05/14/201402/2015 IBS (irritable bowel syndrome) 02/05/2014 03/20/2018 Other seborrheic keratosis 06/21/2010 0 03/11/2015 Solar lentigo 06/21/2010 07/28/2015 Other and unspecified malign ant neoplasm of scalp and skin of neck 02/23/2010 03/14/2017 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 12/19/2009 03/14/2017 Actinic Keratosis (Premalignant AK) 12/19/2009 03/14/2017 Actinic Damage///Sun-damaged skin 12/19/2009 12/19/2009 Irritated//Inflamed Seborrheic Keratosis 12/19/2009 03/11/2015 Actinic Damage///Sun-damaged skin 12/19/2009 03/14/2017 Contact dermatitis and other eczema due to plants (except food) 09/14/2006 03/14/2017 Contact dermatitis and other eczema, due to unspecified cause 09/14/2006 03/14/2017 Unspecified pruritic disorder 09/14/2006 03/14/2017 Seborrheic dermatitis, unspecified 09/14/2006 03/14/2017 Allergic rhinitis, cause unspecified 06/21/2006 03/14/2017 Other and unspecified hyperlipidemia 03/09/2005 12/10/2014 Esophageal reflux 02/24/2005 03/14/2017 Tear of lateral cartilage or meniscus of knee, current 09/21/2003 08/29/2016 Follow-up examination, follo wing other surgery 09/21/2003 08/29/2016 documented as of this encounter (statuses as of 11/13/2022) [facility] History of Past illness Narrative* Problem Noted Date Diagnosed Date Resolved Date Positive occult stool blood test 09/16/2020 09/16/2020 Chronic pain of right knee 06/22/2017 0 03/20/2018 Right lumbar radiculitis 03/15/2017 Intervertebral disc disorder with radiculopathy of lumbar region 01/12/2017 9 Overview: Added automatically from request for surgery [id number] Intervertebral disc stenosis of neural canal of lumbar region 01/12/2017 03/20/2018 Overview: Added automatically from request for surgery [id number] Right sided sciatica 12/07/2016 019 Situational depression 11/24/201603/14 Arthritis of right knee 10/30/201610/04 Primary osteoarthritis of right knee 09/06/2016 10/31/2016 Overview: Added automatically from request for surgery [id number] Hip bursitis 04/19/2016 08/29/2016 Irritable bowel syndrome 05/14/201402/2015 IBS (irritable bowel syndrome) 02/05/2014 03/20/2018 Other seborrheic keratosis 06/21/2010 0 03/11/2015 Solar lentigo 06/21/2010 07/28/2015 Other and unspecified malign ant neoplasm of scalp and skin of neck 02/23/2010 03/14/2017 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 12/19/2009 03/14/2017 Actinic Keratosis (Premalignant AK) 12/19/2009 03/14/2017 Actinic Damage///Sun-damaged skin 12/19/2009 12/19/2009 Irritated//Inflamed Seborrheic Keratosis 12/19/2009 03/11/2015 Actinic Damage///Sun-damaged skin 12/19/2009 03/14/2017 Contact dermatitis and other eczema due to plants (except food) 09/14/2006 03/14/2017 Contact dermatitis and other eczema, due to unspecified cause 09/14/2006 03/14/2017 Unspecified pruritic disorder 09/14/2006 03/14/2017 Seborrheic dermatitis, unspecified 09/14/2006 03/14/2017 Allergic rhinitis, cause unspecified 06/21/2006 03/14/2017 Other and unspecified hyperlipidemia 03/09/2005 12/10/2014 Esophageal reflux 02/24/2005 03/14/2017 Tear of lateral cartilage or meniscus of knee, current 09/21/2003 08/29/2016 Follow-up examination, follo wing other surgery 09/21/2003 08/29/2016 documented as of this encounter (statuses as of 11/16/2022) [facility] History of Past illness Narrative* Problem Noted Date Diagnosed Date Resolved Date Positive occult stool blood test 09/16/2020 09/16/2020 Chronic pain of right knee 06/22/2017 0 03/20/2018 Right lumbar radiculitis 03/15/2017 Intervertebral disc disorder with radiculopathy of lumbar region 01/12/2017 9 Overview: Added automatically from request for surgery [id number] Intervertebral disc stenosis of neural canal of lumbar region 01/12/2017 03/20/2018 Overview: Added automatically from request for surgery [id number] Right sided sciatica 12/07/2016 019 Situational depression 11/24/201603/14 Arthritis of right knee 10/30/201610/04 Primary osteoarthritis of right knee 09/06/2016 10/31/2016 Overview: Added automatically from request for surgery [id number] Hip bursitis 04/19/2016 08/29/2016 Irritable bowel syndrome 05/14/201402/2015 IBS (irritable bowel syndrome) 02/05/2014 03/20/2018 Other seborrheic keratosis 06/21/2010 0 03/11/2015 Solar lentigo 06/21/2010 07/28/2015 Other and unspecified malign ant neoplasm of scalp and skin of neck 02/23/2010 03/14/2017 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 12/19/2009 03/14/2017 Actinic Keratosis (Premalignant AK) 12/19/2009 03/14/2017 Actinic Damage///Sun-damaged skin 12/19/2009 12/19/2009 Irritated//Inflamed Seborrheic Keratosis 12/19/2009 03/11/2015 Actinic Damage///Sun-damaged skin 12/19/2009 03/14/2017 Contact dermatitis and other eczema due to plants (except food) 09/14/2006 03/14/2017 Contact dermatitis and other eczema, due to unspecified cause 09/14/2006 03/14/2017 Unspecified pruritic disorder 09/14/2006 03/14/2017 Seborrheic dermatitis, unspecified 09/14/2006 03/14/2017 Allergic rhinitis, cause unspecified 06/21/2006 03/14/2017 Other and unspecified hyperlipidemia 03/09/2005 12/10/2014 Esophageal reflux 02/24/2005 03/14/2017 Tear of lateral cartilage or meniscus of knee, current 09/21/2003 08/29/2016 Follow-up examination, follo wing other surgery 09/21/2003 08/29/2016 documented as of this encounter (statuses as of 11/24/2022) [facility] History of Past illness Narrative* Problem Noted Date Diagnosed Date Resolved Date Positive occult stool blood test 09/16/2020 09/16/2020 Chronic pain of right knee 06/22/2017 0 03/20/2018 Right lumbar radiculitis 03/15/2017 Intervertebral disc disorder with radiculopathy of lumbar region 01/12/2017 9 Overview: Added automatically from request for surgery [id number] Intervertebral disc stenosis of neural canal of lumbar region 01/12/2017 03/20/2018 Overview: Added automatically from request for surgery [id number] Right sided sciatica 12/07/2016 019 Situational depression 11/24/201603/14 Arthritis of right knee 10/30/201610/04 Primary osteoarthritis of right knee 09/06/2016 10/31/2016 Overview: Added automatically from request for surgery [id number] Hip bursitis 04/19/2016 08/29/2016 Irritable bowel syndrome 05/14/201402/2015 IBS (irritable bowel syndrome) 02/05/2014 03/20/2018 Other seborrheic keratosis 06/21/2010 0 03/11/2015 Solar lentigo 06/21/2010 07/28/2015 Other and unspecified malign ant neoplasm of scalp and skin of neck 02/23/2010 03/14/2017 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 12/19/2009 03/14/2017 Actinic Keratosis (Premalignant AK) 12/19/2009 03/14/2017 Actinic Damage///Sun-damaged skin 12/19/2009 12/19/2009 Irritated//Inflamed Seborrheic Keratosis 12/19/2009 03/11/2015 Actinic Damage///Sun-damaged skin 12/19/2009 03/14/2017 Contact dermatitis and other eczema due to plants (except food) 09/14/2006 03/14/2017 Contact dermatitis and other eczema, due to unspecified cause 09/14/2006 03/14/2017 Unspecified pruritic disorder 09/14/2006 03/14/2017 Seborrheic dermatitis, unspecified 09/14/2006 03/14/2017 Allergic rhinitis, cause unspecified 06/21/2006 03/14/2017 Other and unspecified hyperlipidemia 03/09/2005 12/10/2014 Esophageal reflux 02/24/2005 03/14/2017 Tear of lateral cartilage or meniscus of knee, current 09/21/2003 08/29/2016 Follow-up examination, follo wing other surgery 09/21/2003 08/29/2016 documented as of this encounter (statuses as of 12/12/2022) [facility] History of Past illness Narrative* Problem Noted Date Diagnosed Date Resolved Date Positive occult stool blood test 09/16/2020 09/16/2020 Chronic pain of right knee 06/22/2017 0 03/20/2018 Right lumbar radiculitis 03/15/2017 Intervertebral disc disorder with radiculopathy of lumbar region 01/12/2017 9 Overview: Added automatically from request for surgery [id number] Intervertebral disc stenosis of neural canal of lumbar region 01/12/2017 03/20/2018 Overview: Added automatically from request for surgery [id number] Right sided sciatica 12/07/2016 019 Situational depression 11/24/201603/14 Arthritis of right knee 10/30/201610/04 Primary osteoarthritis of right knee 09/06/2016 10/31/2016 Overview: Added automatically from request for surgery [id number] Hip bursitis 04/19/2016 08/29/2016 Irritable bowel syndrome 05/14/201402/2015 IBS (irritable bowel syndrome) 02/05/2014 03/20/2018 Other seborrheic keratosis 06/21/2010 0 03/11/2015 Solar lentigo 06/21/2010 07/28/2015 Other and unspecified malign ant neoplasm of scalp and skin of neck 02/23/2010 03/14/2017 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 12/19/2009 03/14/2017 Actinic Keratosis (Premalignant AK) 12/19/2009 03/14/2017 Actinic Damage///Sun-damaged skin 12/19/2009 12/19/2009 Irritated//Inflamed Seborrheic Keratosis 12/19/2009 03/11/2015 Actinic Damage///Sun-damaged skin 12/19/2009 03/14/2017 Contact dermatitis and other eczema due to plants (except food) 09/14/2006 03/14/2017 Contact dermatitis and other eczema, due to unspecified cause 09/14/2006 03/14/2017 Unspecified pruritic disorder 09/14/2006 03/14/2017 Seborrheic dermatitis, unspecified 09/14/2006 03/14/2017 Allergic rhinitis, cause unspecified 06/21/2006 03/14/2017 Other and unspecified hyperlipidemia 03/09/2005 12/10/2014 Esophageal reflux 02/24/2005 03/14/2017 Tear of lateral cartilage or meniscus of knee, current 09/21/2003 08/29/2016 Follow-up examination, follo wing other surgery 09/21/2003 08/29/2016 documented as of this encounter (statuses as of 12/13/2022) [facility] History of Past illness Narrative* Problem Noted Date Diagnosed Date Resolved Date Positive occult stool blood test 09/16/2020 09/16/2020 Chronic pain of right knee 06/22/2017 0 03/20/2018 Right lumbar radiculitis 03/15/2017 Intervertebral disc disorder with radiculopathy of lumbar region 01/12/2017 9 Overview: Added automatically from request for surgery [id number] Intervertebral disc stenosis of neural canal of lumbar region 01/12/2017 03/20/2018 Overview: Added automatically from request for surgery [id number] Right sided sciatica 12/07/2016 019 Situational depression 11/24/201603/14 Arthritis of right knee 10/30/201610/04 Primary osteoarthritis of right knee 09/06/2016 10/31/2016 Overview: Added automatically from request for surgery [id number] Hip bursitis 04/19/2016 08/29/2016 Irritable bowel syndrome 05/14/201402/2015 IBS (irritable bowel syndrome) 02/05/2014 03/20/2018 Other seborrheic keratosis 06/21/2010 0 03/11/2015 Solar lentigo 06/21/2010 07/28/2015 Other and unspecified malign ant neoplasm of scalp and skin of neck 02/23/2010 03/14/2017 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 12/19/2009 03/14/2017 Actinic Keratosis (Premalignant AK) 12/19/2009 03/14/2017 Actinic Damage///Sun-damaged skin 12/19/2009 12/19/2009 Irritated//Inflamed Seborrheic Keratosis 12/19/2009 03/11/2015 Actinic Damage///Sun-damaged skin 12/19/2009 03/14/2017 Contact dermatitis and other eczema due to plants (except food) 09/14/2006 03/14/2017 Contact dermatitis and other eczema, due to unspecified cause 09/14/2006 03/14/2017 Unspecified pruritic disorder 09/14/2006 03/14/2017 Seborrheic dermatitis, unspecified 09/14/2006 03/14/2017 Allergic rhinitis, cause unspecified 06/21/2006 03/14/2017 Other and unspecified hyperlipidemia 03/09/2005 12/10/2014 Esophageal reflux 02/24/2005 03/14/2017 Tear of lateral cartilage or meniscus of knee, current 09/21/2003 08/29/2016 Follow-up examination, follo wing other surgery 09/21/2003 08/29/2016 documented as of this encounter (statuses as of 12/26/2022) [facility] History of Past illness Narrative* Problem Noted Date Diagnosed Date Resolved Date Positive occult stool blood test 09/16/2020 09/16/2020 Chronic pain of right knee 06/22/2017 0 03/20/2018 Right lumbar radiculitis 03/15/2017 Intervertebral disc disorder with radiculopathy of lumbar region 01/12/2017 9 Overview: Added automatically from request for surgery [id number] Intervertebral disc stenosis of neural canal of lumbar region 01/12/2017 03/20/2018 Overview: Added automatically from request for surgery [id number] Right sided sciatica 12/07/2016 019 Situational depression 11/24/201603/14 Arthritis of right knee 10/30/201610/04 Primary osteoarthritis of right knee 09/06/2016 10/31/2016 Overview: Added automatically from request for surgery [id number] Hip bursitis 04/19/2016 08/29/2016 Irritable bowel syndrome 05/14/201402/2015 IBS (irritable bowel syndrome) 02/05/2014 03/20/2018 Other seborrheic keratosis 06/21/2010 0 03/11/2015 Solar lentigo 06/21/2010 07/28/2015 Other and unspecified malign ant neoplasm of scalp and skin of neck 02/23/2010 03/14/2017 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 12/19/2009 03/14/2017 Actinic Keratosis (Premalignant AK) 12/19/2009 03/14/2017 Actinic Damage///Sun-damaged skin 12/19/2009 12/19/2009 Irritated//Inflamed Seborrheic Keratosis 12/19/2009 03/11/2015 Actinic Damage///Sun-damaged skin 12/19/2009 03/14/2017 Contact dermatitis and other eczema due to plants (except food) 09/14/2006 03/14/2017 Contact dermatitis and other eczema, due to unspecified cause 09/14/2006 03/14/2017 Unspecified pruritic disorder 09/14/2006 03/14/2017 Seborrheic dermatitis, unspecified 09/14/2006 03/14/2017 Allergic rhinitis, cause unspecified 06/21/2006 03/14/2017 Other and unspecified hyperlipidemia 03/09/2005 12/10/2014 Esophageal reflux 02/24/2005 03/14/2017 Tear of lateral cartilage or meniscus of knee, current 09/21/2003 08/29/2016 Follow-up examination, follo wing other surgery 09/21/2003 08/29/2016 documented as of this encounter (statuses as of 04/11/2023) [facility] History of Past illness Narrative* Problem Noted Date Diagnosed Date Resolved Date Positive occult stool blood test 09/16/2020 09/16/2020 Chronic pain of right knee 06/22/2017 0 03/20/2018 Right lumbar radiculitis 03/15/2017 Intervertebral disc disorder with radiculopathy of lumbar region 01/12/2017 9 Overview: Added automatically from request for surgery [id number] Intervertebral disc stenosis of neural canal of lumbar region 01/12/2017 03/20/2018 Overview: Added automatically from request for surgery [id number] Right sided sciatica 12/07/2016 019 Situational depression 11/24/201603/14 Arthritis of right knee 10/30/201610/04 Primary osteoarthritis of right knee 09/06/2016 10/31/2016 Overview: Added automatically from request for surgery [id number] Hip bursitis 04/19/2016 08/29/2016 Irritable bowel syndrome 05/14/201402/2015 IBS (irritable bowel syndrome) 02/05/2014 03/20/2018 Other seborrheic keratosis 06/21/2010 0 03/11/2015 Solar lentigo 06/21/2010 07/28/2015 Other and unspecified malign ant neoplasm of scalp and skin of neck 02/23/2010 03/14/2017 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 12/19/2009 03/14/2017 Actinic Keratosis (Premalignant AK) 12/19/2009 03/14/2017 Actinic Damage///Sun-damaged skin 12/19/2009 12/19/2009 Irritated//Inflamed Seborrheic Keratosis 12/19/2009 03/11/2015 Actinic Damage///Sun-damaged skin 12/19/2009 03/14/2017 Contact dermatitis and other eczema due to plants (except food) 09/14/2006 03/14/2017 Contact dermatitis and other eczema, due to unspecified cause 09/14/2006 03/14/2017 Unspecified pruritic disorder 09/14/2006 03/14/2017 Seborrheic dermatitis, unspecified 09/14/2006 03/14/2017 Allergic rhinitis, cause unspecified 06/21/2006 03/14/2017 Other and unspecified hyperlipidemia 03/09/2005 12/10/2014 Esophageal reflux 02/24/2005 03/14/2017 Tear of lateral cartilage or meniscus of knee, current 09/21/2003 08/29/2016 Follow-up examination, follo wing other surgery 09/21/2003 08/29/2016 documented as of this encounter (statuses as of 04/17/2023) [facility] History of Past illness Narrative* Problem Noted Date Diagnosed Date Resolved Date Positive occult stool blood test 09/16/2020 09/16/2020 Chronic pain of right knee 06/22/2017 0 03/20/2018 Right lumbar radiculitis 03/15/2017 Intervertebral disc disorder with radiculopathy of lumbar region 01/12/2017 9 Overview: Added automatically from request for surgery [id number] Intervertebral disc stenosis of neural canal of lumbar region 01/12/2017 03/20/2018 Overview: Added automatically from request for surgery [id number] Right sided sciatica 12/07/2016 019 Situational depression 11/24/201603/14 Arthritis of right knee 10/30/201610/04 Primary osteoarthritis of right knee 09/06/2016 10/31/2016 Overview: Added automatically from request for surgery [id number] Hip bursitis 04/19/2016 08/29/2016 Irritable bowel syndrome 05/14/201402/2015 IBS (irritable bowel syndrome) 02/05/2014 03/20/2018 Other seborrheic keratosis 06/21/2010 0 03/11/2015 Solar lentigo 06/21/2010 07/28/2015 Other and unspecified malign ant neoplasm of scalp and skin of neck 02/23/2010 03/14/2017 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 12/19/2009 03/14/2017 Actinic Keratosis (Premalignant AK) 12/19/2009 03/14/2017 Actinic Damage///Sun-damaged skin 12/19/2009 12/19/2009 Irritated//Inflamed Seborrheic Keratosis 12/19/2009 03/11/2015 Actinic Damage///Sun-damaged skin 12/19/2009 03/14/2017 Contact dermatitis and other eczema due to plants (except food) 09/14/2006 03/14/2017 Contact dermatitis and other eczema, due to unspecified cause 09/14/2006 03/14/2017 Unspecified pruritic disorder 09/14/2006 03/14/2017 Seborrheic dermatitis, unspecified 09/14/2006 03/14/2017 Allergic rhinitis, cause unspecified 06/21/2006 03/14/2017 Other and unspecified hyperlipidemia 03/09/2005 12/10/2014 Esophageal reflux 02/24/2005 03/14/2017 Tear of lateral cartilage or meniscus of knee, current 09/21/2003 08/29/2016 Follow-up examination, follo wing other surgery 09/21/2003 08/29/2016 documented as of this encounter (statuses as of 04/20/2023) [facility] History of Past illness Narrative* Problem Noted Date Diagnosed Date Resolved Date Positive occult stool blood test 09/16/2020 09/16/2020 Chronic pain of right knee 06/22/2017 0 03/20/2018 Right lumbar radiculitis 03/15/2017 Intervertebral disc disorder with radiculopathy of lumbar region 01/12/2017 9 Overview: Added automatically from request for surgery [id number] Intervertebral disc stenosis of neural canal of lumbar region 01/12/2017 03/20/2018 Overview: Added automatically from request for surgery [id number] Right sided sciatica 12/07/2016 019 Situational depression 11/24/201603/14 Arthritis of right knee 10/30/201610/04 Primary osteoarthritis of right knee 09/06/2016 10/31/2016 Overview: Added automatically from request for surgery [id number] Hip bursitis 04/19/2016 08/29/2016 Irritable bowel syndrome 05/14/201402/2015 IBS (irritable bowel syndrome) 02/05/2014 03/20/2018 Other seborrheic keratosis 06/21/2010 0 03/11/2015 Solar lentigo 06/21/2010 07/28/2015 Other and unspecified malign ant neoplasm of scalp and skin of neck 02/23/2010 03/14/2017 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 12/19/2009 03/14/2017 Actinic Keratosis (Premalignant AK) 12/19/2009 03/14/2017 Actinic Damage///Sun-damaged skin 12/19/2009 12/19/2009 Irritated//Inflamed Seborrheic Keratosis 12/19/2009 03/11/2015 Actinic Damage///Sun-damaged skin 12/19/2009 03/14/2017 Contact dermatitis and other eczema due to plants (except food) 09/14/2006 03/14/2017 Contact dermatitis and other eczema, due to unspecified cause 09/14/2006 03/14/2017 Unspecified pruritic disorder 09/14/2006 03/14/2017 Seborrheic dermatitis, unspecified 09/14/2006 03/14/2017 Allergic rhinitis, cause unspecified 06/21/2006 03/14/2017 Other and unspecified hyperlipidemia 03/09/2005 12/10/2014 Esophageal reflux 02/24/2005 03/14/2017 Tear of lateral cartilage or meniscus of knee, current 09/21/2003 08/29/2016 Follow-up examination, follo wing other surgery 09/21/2003 08/29/2016 documented as of this encounter (statuses as of 05/22/2023) [facility] History of Past illness Narrative* Problem Noted Date Diagnosed Date Resolved Date Positive occult stool blood test 09/16/2020 09/16/2020 Chronic pain of right knee 06/22/2017 0 03/20/2018 Right lumbar radiculitis 03/15/2017 Intervertebral disc disorder with radiculopathy of lumbar region 01/12/2017 9 Overview: Added automatically from request for surgery [id number] Intervertebral disc stenosis of neural canal of lumbar region 01/12/2017 03/20/2018 Overview: Added automatically from request for surgery [id number] Right sided sciatica 12/07/2016 019 Situational depression 11/24/201603/14 Arthritis of right knee 10/30/201610/04 Primary osteoarthritis of right knee 09/06/2016 10/31/2016 Overview: Added automatically from request for surgery [id number] Hip bursitis 04/19/2016 08/29/2016 Irritable bowel syndrome 05/14/201402/2015 IBS (irritable bowel syndrome) 02/05/2014 03/20/2018 Other seborrheic keratosis 06/21/2010 0 03/11/2015 Solar lentigo 06/21/2010 07/28/2015 Other and unspecified malign ant neoplasm of scalp and skin of neck 02/23/2010 03/14/2017 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 12/19/2009 03/14/2017 Actinic Keratosis (Premalignant AK) 12/19/2009 03/14/2017 Actinic Damage///Sun-damaged skin 12/19/2009 12/19/2009 Irritated//Inflamed Seborrheic Keratosis 12/19/2009 03/11/2015 Actinic Damage///Sun-damaged skin 12/19/2009 03/14/2017 Contact dermatitis and other eczema due to plants (except food) 09/14/2006 03/14/2017 Contact dermatitis and other eczema, due to unspecified cause 09/14/2006 03/14/2017 Unspecified pruritic disorder 09/14/2006 03/14/2017 Seborrheic dermatitis, unspecified 09/14/2006 03/14/2017 Allergic rhinitis, cause unspecified 06/21/2006 03/14/2017 Other and unspecified hyperlipidemia 03/09/2005 12/10/2014 Esophageal reflux 02/24/2005 03/14/2017 Tear of lateral cartilage or meniscus of knee, current 09/21/2003 08/29/2016 Follow-up examination, follo wing other surgery 09/21/2003 08/29/2016 documented as of this encounter (statuses as of 06/16/2023) [facility] Miscellaneous Notes* Telephone Encounter - Prema Gardner LPN - 07/16/2020 12:40 PM EDT Phone call placed updated patient new medications sent to [facility] at 12:00 07/16/20. Prema Gardner LPN * Telephone Encounter - Ross Blandon MD - 07/16/2020 12:00 PM EDT Let patient know new antibiotics sent to [facility]. The following approved medication requests have been transmitted electronically. Signed Prescriptions Disp Refills levoFLOXacin (LEVAQUIN) 750 mg tablet 10 tablet 0 Sig: Take 1 tablet by mouth once daily for 10 days. Authorizing Provider: ROSS BLANDON metroNIDAZOLE (FLAGYL) 500 mg tablet 40 tablet 0 Sig: Take 1 tablet by mouth four times daily for 10 days. Authorizing Provider: ROSS BLANDON MD * Telephone Encounter - Katya Botello RN - 07/16/2020 9:20 AM EDT Patient reports pharmacy informed him moxifloxacin is not covered by his insurance. Reports he is feeling worse today than he was yesterday. Asking if doctor can send another AB today, does not want to go through the weekend. Please phone patient with reply. [facility] Diagnosis Need for vaccination- Primary Need for prophylactic vaccination and inoculation against unspecified single disease [facility] Dizziness- Primary Dizziness and giddiness [facility] Acute [facility]- Primary [facility] Diagnosis Onychomycosis- Primary Dermatophytosis of nail Pain in toe of left foot Pain in limb Pain in toe of right foot Pain in limb PAD (peripheral artery disease) (HCC) Peripheral vascular disease, unspecified Diminished pulses in lower extremity Other symptoms involving cardiovascular system [facility] Essential hypertension- Primary Unspecified essential hypertension Mixed hyperlipidemia GERD without esophagitis Esophageal reflux Medication management Encounter for long-term (current) use of other medications Diverticulosis of large intestine without hemorrhage Malignant neoplasm of prostate (HCC) Malignant neoplasm of prostate [facility] Diagnosis Onychomycosis- Primary Dermatophytosis of nail Pain in toe of left foot Pain in limb Pain in toe of right foot Pain in limb Diminished pulses in lower extremity Other symptoms involving cardiovascular system [facility] Diagnosis Onychomycosis- Primary Dermatophytosis of nail Pain in toe of left foot Pain in limb Pain in toe of right foot Pain in limb Diminished pulses in lower extremity Other symptoms involving cardiovascular system [facility] Diagnosis Need for influenza vaccination- Primary Need for prophylactic vaccination and inoculation against influenza [facility] Diagnosis Nocturia- Primary Stress incontinence, male Urinary hesitancy Malignant neoplasm of prostate (HCC) Malignant neoplasm of prostate [facility] Diagnosis Onychomycosis- Primary Dermatophytosis of nail Pain in toe of right foot Pain in limb [facility] Diagnosis Medicare annual wellness visit, subsequent- Primary Routine general medical examination at a health care facility Mixed hyperlipidemia Essential hypertension Unspecified essential hypertension Elevated blood sugar Other abnormal glucose Aortic root dilatation (HCC) Thoracic aortic ectasia GERD without esophagitis Esophageal reflux Malignant neoplasm of prostate (HCC) Malignant neoplasm of prostate Low serum vitamin B12 Adjustment insomnia Transient disorder of initiating or maintaining sleep Advance directive discussed with patient Other specified counseling [facility] Diagnosis Onychomycosis- Primary Dermatophytosis of nail Pain in toe of right foot Pain in limb Pain in toe of left foot Pain in limb [facility] Diagnosis Ingrowing toenail- Primary Ingrowing nail [facility] Diagnosis Essential hypertension Unspecified essential hypertension [facility] Diagnosis Open wound of toe, initial encounter- Primary [facility] Diagnosis Onychomycosis- Primary Dermatophytosis of nail Pain in toe of left foot Pain in limb Pain in toe of right foot Pain in limb [facility] Diagnosis Nocturia- Primary Malignant neoplasm of prostate (HCC) Malignant neoplasm of prostate Screening for genitourinary condition Screening for other and unspecified genitourinary condition [facility] Diagnosis Essential hypertension Unspecified essential hypertension [facility] Diagnosis Onychomycosis- Primary Dermatophytosis of nail Pain in toe of right foot Pain in limb Pain in toe of left foot Pain in limb [facility] Diagnosis Onychomycosis- Primary Dermatophytosis of nail Pain in toe of right foot Pain in limb Pain in toe of left foot Pain in limb [facility] Diagnosis Right hand pain- Primary Pain in limb [facility] Diagnosis Medicare annual wellness visit, subsequent- Primary Routine general medical examination at a health care facility Essential hypertension Unspecified essential hypertension Mixed hyperlipidemia GERD without esophagitis Esophageal reflux Elevated blood sugar Other abnormal glucose Aortic root dilatation (HCC) Thoracic aortic ectasia Adjustment insomnia Transient disorder of initiating or maintaining sleep Low serum vitamin B12 Malignant neoplasm of prostate (HCC) Malignant neoplasm of prostate Balance problem Other symptoms involving nervous and musculoskeletal systems Advance directive discussed with patient Other specified counseling Screening for depression Encounter for screening examination for other mental health and behavioral disorders Abnormality of gait Medication management Encounter for long-term (current) use of other medications Need for vaccination Need for prophylactic vaccination and inoculation against unspecified single disease Bilateral impacted cerumen Impacted cerumen Left ear pain Otalgia, unspecified [facility] Diagnosis Right hand pain Pain in limb [facility] Diagnosis 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- Primary Primary localized osteoarthrosis, hand [facility]* Diagnosis Balance problem- Primary Other symptoms involving nervous and musculoskeletal systems Abnormality of gait [facility] Diagnosis Balance problem- Primary Other symptoms involving nervous and musculoskeletal systems Abnormality of gait [facility]* Diagnosis Balance problem- Primary Other symptoms involving nervous and musculoskeletal systems Abnormality of gait [facility] Diagnosis Balance problem- Primary Other symptoms involving nervous and musculoskeletal systems Abnormality of gait [facility]* Diagnosis Balance problem- Primary Other symptoms involving nervous and musculoskeletal systems Abnormality of gait [facility] Diagnosis Essential hypertension Unspecified essential hypertension [facility] Diagnosis Balance problem- Primary Other symptoms involving nervous and musculoskeletal systems Abnormality of gait [facility] Diagnosis Balance problem- Primary Other symptoms involving nervous and musculoskeletal systems Abnormality of gait [facility] Diagnosis Balance problem- Primary Other symptoms involving nervous and musculoskeletal systems Abnormality of gait [facility] Diagnosis 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- Primary Primary localized osteoarthrosis, hand MCP subluxation, sequela [facility] Diagnosis Onychomycosis- Primary Dermatophytosis of nail Pain in toe of right foot Pain in limb Pain in toe of left foot Pain in limb [facility] Diagnosis Ingrowing toenail- Primary Ingrowing nail [facility]* Diagnosis Open wound of toe, initial encounter- Primary [facility] Diagnosis 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- Primary Primary localized osteoarthrosis, hand [facility]* Diagnosis Onychomycosis- Primary Dermatophytosis of nail Pain in toe of right foot Pain in limb Pain in toe of left foot Pain in limb Ingrowing toenail Ingrowing nail [facility] Diagnosis Left inguinal hernia- Primary Inguinal hernia without mention of obstruction or gangrene, unilateral or unspecified, (not specified as recurrent) documented in this encounter [facility] for referral (narrative)* Outpatient Procedure (Routine) - Authorized Specialty Diagnoses / Procedures Referred By Manny aguilar Referred To Contact [facility] Diagnoses Onychomycosis Diminished pulses in lower extremity Procedures PVR ANK PRESS GROVER VAS LAB NON-INVAS PHYSIOLOGIC STD EXTREMITY ART 2 LEVEL Apolinar Blevins [address] [place] [address] [facility] [place] [address] [place] [address] Referral ID Status Reason Start Date Expiration Date Visits Requested Visits Authorized [id number] Authorized Auto-Generat ed Referral 04/03/2022 04/03/2023 1 1 [facility] for visit Narrative* Diagnostic Procedure Only (Routine) - Closed Specialty Diagnoses / Procedures Referred By Manny aguilar Referred To Contact [facility] Diagnoses Right hand pain Procedures XR HAND GENERAL 3V PA/LAT/OBL RIGHT RADEX HAND MINIMUM 3 VIEWS Romel Queen MD [address] [place] [address] Phone: tel: fax: [place] [id number] Referral ID Status Reason Start Date Expiration Date V isits Requested Visits Authorized [id number] Closed Auto-Generate d Referral 04/16/2024 05/16/2025 1 1 [facility] Summary Purpose Family History No Family History Records FoundNo Family History Records FoundNo Family History Records Found Advance Directives No Advanced Directives Records FoundDocuments on File Type Date Recorded Patient Cardiac Tech Expl anation Advance Directive(s) Advance Directive(s) 09/18/2019 2:01 PM Advance Directive(s) 09/09/2019 12:53 PM Advance Directive(s) 05/21/2019 11:05 AM Advance Directive(s) 05/19/2019 4:19 PM Advance Directive(s) 04/29/2018 8:56 AM Advance Directive(s) 03/27/2018 10:25 AM Advance Directive(s) 03/27/2017 1:00 PM Advance Directive(s) 11/17/2016 12:55 PM Advance Directive(s) 10/30/2016 8:42 AM Advance Directive(s) 08/08/2016 2:01 PM Advance Directive(s) 02/07/2016 8:44 AM Advance Directive(s) 01/27/2014 10:18 AM Advance Directive(s) 04/05/2011 12:00 AM Advance Directive(s) 04/19/2006 12:00 AM Documents on File Type Date Recorded Patient Cardiac Tech Expl anation Advance Directive(s) 01/27/2014 10:18 AM Advance Directive(s) 04/05/2011 Advance Directive(s) 04/19/2006 Documents on File Type Date Recorded Patient Cardiac Tech Expl anation Advance Directive(s) 01/27/2014 10:18 AM Advance Directive(s) 04/05/2011 Advance Directive(s) 04/19/2006 Hospital Course Note [facility] [address] [place] [address] / REHABILITATION SERVICES DISCHARGE SUMMARY MR#: [id number] Acct: [id number] Name: ANDREW PERAZA DR Rep #: [id number] : 1940 79 From: Maria E Caal OTR/Margaret, CHT Referring : Status: REG RCR Eval Date: Discharge Date: It has been my pleasure to treat ANDREW PERAZA under orders from TRAN YOUNG, for the diagnosis of right IF closed dislocation of metacarpophalangeal joint for a total of 10 visit(s). Please see the following information for a summary of their discharge status. % Improvement: 70 Objective/Function: right IF MCP ROM 0/70. right IF PIP 0/100. right IF DIP 0/50. IF deviates at PIP about 30*. therapist domenica oval 8 to provide support for pinch tasks -. right grinder set up operator jig strength 30#. right lateral pinch 8#. right tripod pinch 8#. pt made improvements with ROM. Thearpy has ed. pt on HEP for strength and ROM and in sessi (more content not included)... Additional Source Comments (unrecognized sect ion and content) No Status Records FoundNo Status Records FoundNo Status Records Found INFORMATION SOURCE (unrecogn ized section and content) DATE CREATED AUTHOR 11/04/2019 [facility] DATE CREATED AUTHOR AUTHOR'S ORGANIZ ATION 11/17/2019 [facility] DATE CREATED AUTHOR AUTHOR'S ORGANIZ ATION 12/15/2024 [facility] Source Comments (unrecognize d section and content) In the event this informatio n is protected by the Federal Confidentiality of Alcohol and Drug Abuse Patient Records regulations: The Federal rules restrict any use of the information to criminally investigate or prosecute any alcohol or drug abuse patient.[facility] the event this information is protected by the Federal Confidentiality of Alcohol and Drug Abuse Patient Records regulations: The Federal rules restrict any use of the information to criminally investigate or prosecute any alcohol or drug abuse patient.[facility] HospitalIn the event this information is protected by the Federal Confidentiality of Alcohol and Drug Abuse Patient Records regulations: The Federal rules restrict any use of the information to criminally investigate or prosecute any alcohol or drug abuse patient.[facility] HospitalIn the event this information is protected by the Federal Confidentiality of Alcohol and Drug Abuse Patient Records regulations: The Federal rules restrict any use of the information to criminally investigate or prosecute any alcohol or drug abuse patient.[facility] HospitalIn the event this information is protected by the Federal Confidentiality of Alcohol and Drug Abuse Patient Records regulations: The Federal rules restrict any use of the information to criminally investigate or prosecute any alcohol or drug abuse patient.[facility] HospitalIn the event this information is protected by the Federal Confidentiality of Alcohol and Drug Abuse Patient Records regulations: The Federal rules restrict any use of the information to criminally investigate or prosecute any alcohol or drug abuse patient.[facility] HospitalIn the event this information is protected by the Federal Confidentiality of Alcohol and Drug Abuse Patient Records regulations: The Federal rules restrict any use of the information to criminally investigate or prosecute any alcohol or drug abuse patient.[facility] HospitalIn the event this information is protected by the Federal Confidentiality of Alcohol and Drug Abuse Patient Records regulations: The Federal rules restrict any use of the information to criminally investigate or prosecute any alcohol or drug abuse patient.[facility] HospitalIn the event this information is protected by the Federal Confidentiality of Alcohol and Drug Abuse Patient Records regulations: The Federal rules restrict any use of the information to criminally investigate or prosecute any alcohol or drug abuse patient.[facility] HospitalIn the event this information is protected by the Federal Confidentiality of Alcohol and Drug Abuse Patient Records regulations: The Federal rules restrict any use of the information to criminally investigate or prosecute any alcohol or drug abuse patient.[facility] HospitalIn the event this information is protected by the Federal Confidentiality of Alcohol and Drug Abuse Patient Records regulations: The Federal rules restrict any use of the information to criminally investigate or prosecute any alcohol or drug abuse patient.[facility] HospitalIn the event this information is protected by the Federal Confidentiality of Alcohol and Drug Abuse Patient Records regulations: The Federal rules restrict any use of the information to criminally investigate or prosecute any alcohol or drug abuse patient.[facility] HospitalIn the event this information is protected by the Federal Confidentiality of Alcohol and Drug Abuse Patient Records regulations: The Federal rules restrict any use of the information to criminally investigate or prosecute any alcohol or drug abuse patient.[facility] HospitalIn the event this information is protected by the Federal Confidentiality of Alcohol and Drug Abuse Patient Records regulations: The Federal rules restrict any use of the information to criminally investigate or prosecute any alcohol or drug abuse patient.[facility] HospitalIn the event this information is protected by the Federal Confidentiality of Alcohol and Drug Abuse Patient Records regulations: The Federal rules restrict any use of the information to criminally investigate or prosecute any alcohol or drug abuse patient.[facility] HospitalIn the event this information is protected by the Federal Confidentiality of Alcohol and Drug Abuse Patient Records regulations: The Federal rules restrict any use of the information to criminally investigate or prosecute any alcohol or drug abuse patient.[facility] HospitalIn the event this information is protected by the Federal Confidentiality of Alcohol and Drug Abuse Patient Records regulations: The Federal rules restrict any use of the information to criminally investigate or prosecute any alcohol or drug abuse patient.[facility] HospitalIn the event this information is protected by the Federal Confidentiality of Alcohol and Drug Abuse Patient Records regulations: The Federal rules restrict any use of the information to criminally investigate or prosecute any alcohol or drug abuse patient.[facility] HospitalIn the event this information is protected by the Federal Confidentiality of Alcohol and Drug Abuse Patient Records regulations: The Federal rules restrict any use of the information to criminally investigate or prosecute any alcohol or drug abuse patient.[facility] HospitalIn the event this information is protected by the Federal Confidentiality of Alcohol and Drug Abuse Patient Records regulations: The Federal rules restrict any use of the information to criminally investigate or prosecute any alcohol or drug abuse patient.[facility] HospitalIn the event this information is protected by the Federal Confidentiality of Alcohol and Drug Abuse Patient Records regulations: The Federal rules restrict any use of the information to criminally investigate or prosecute any alcohol or drug abuse patient.[facility] HospitalIn the event this information is protected by the Federal Confidentiality of Alcohol and Drug Abuse Patient Records regulations: The Federal rules restrict any use of the information to criminally investigate or prosecute any alcohol or drug abuse patient.[facility] HospitalIn the event this information is protected by the Federal Confidentiality of Alcohol and Drug Abuse Patient Records regulations: The Federal rules restrict any use of the information to criminally investigate or prosecute any alcohol or drug abuse patient.[facility] HospitalIn the event this information is protected by the Federal Confidentiality of Alcohol and Drug Abuse Patient Records regulations: The Federal rules restrict any use of the information to criminally investigate or prosecute any alcohol or drug abuse patient.[facility] HospitalIn the event this information is protected by the Federal Confidentiality of Alcohol and Drug Abuse Patient Records regulations: The Federal rules restrict any use of the information to criminally investigate or prosecute any alcohol or drug abuse patient.[facility] HospitalIn the event this information is protected by the Federal Confidentiality of Alcohol and Drug Abuse Patient Records regulations: The Federal rules restrict any use of the information to criminally investigate or prosecute any alcohol or drug abuse patient.[facility] HospitalIn the event this information is protected by the Federal Confidentiality of Alcohol and Drug Abuse Patient Records regulations: The Federal rules restrict any use of the information to criminally investigate or prosecute any alcohol or drug abuse patient.[facility] HospitalIn the event this information is protected by the Federal Confidentiality of Alcohol and Drug Abuse Patient Records regulations: The Federal rules restrict any use of the information to criminally investigate or prosecute any alcohol or drug abuse patient.[facility] HospitalIn the event this information is protected by the Federal Confidentiality of Alcohol and Drug Abuse Patient Records regulations: The Federal rules restrict any use of the information to criminally investigate or prosecute any alcohol or drug abuse patient.[facility] HospitalIn the event this information is protected by the Federal Confidentiality of Alcohol and Drug Abuse Patient Records regulations: The Federal rules restrict any use of the information to criminally investigate or prosecute any alcohol or drug abuse patient.[facility] HospitalIn the event this information is protected by the Federal Confidentiality of Alcohol and Drug Abuse Patient Records regulations: The Federal rules restrict any use of the information to criminally investigate or prosecute any alcohol or drug abuse patient.[facility] HospitalIn the event this information is protected by the Federal Confidentiality of Alcohol and Drug Abuse Patient Records regulations: The Federal rules restrict any use of the information to criminally investigate or prosecute any alcohol or drug abuse patient.[facility] HospitalIn the event this information is protected by the Federal Confidentiality of Alcohol and Drug Abuse Patient Records regulations: The Federal rules restrict any use of the information to criminally investigate or prosecute any alcohol or drug abuse patient.[facility] HospitalIn the event this information is protected by the Federal Confidentiality of Alcohol and Drug Abuse Patient Records regulations: The Federal rules restrict any use of the information to criminally investigate or prosecute any alcohol or drug abuse patient.[facility] HospitalIn the event this information is protected by the Federal Confidentiality of Alcohol and Drug Abuse Patient Records regulations: The Federal rules restrict any use of the information to criminally investigate or prosecute any alcohol or drug abuse patient.[facility] HospitalIn the event this information is protected by the Federal Confidentiality of Alcohol and Drug Abuse Patient Records regulations: The Federal rules restrict any use of the information to criminally investigate or prosecute any alcohol or drug abuse patient.[facility] HospitalIn the event this information is protected by the Federal Confidentiality of Alcohol and Drug Abuse Patient Records regulations: The Federal rules restrict any use of the information to criminally investigate or prosecute any alcohol or drug abuse patient.[facility] HospitalIn the event this information is protected by the Federal Confidentiality of Alcohol and Drug Abuse Patient Records regulations: The Federal rules restrict any use of the information to criminally investigate or prosecute any alcohol or drug abuse patient.[facility] HospitalIn the event this information is protected by the Federal Confidentiality of Alcohol and Drug Abuse Patient Records regulations: The Federal rules restrict any use of the information to criminally investigate or prosecute any alcohol or drug abuse patient.[facility] HospitalIn the event this information is protected by the Federal Confidentiality of Alcohol and Drug Abuse Patient Records regulations: The Federal rules restrict any use of the information to criminally investigate or prosecute any alcohol or drug abuse patient.[facility] HospitalIn the event this information is protected by the Federal Confidentiality of Alcohol and Drug Abuse Patient Records regulations: The Federal rules restrict any use of the information to criminally investigate or prosecute any alcohol or drug abuse patient.[facility] HospitalIn the event this information is protected by the Federal Confidentiality of Alcohol and Drug Abuse Patient Records regulations: The Federal rules restrict any use of the information to criminally investigate or prosecute any alcohol or drug abuse patient.[facility] HospitalIn the event this information is protected by the Federal Confidentiality of Alcohol and Drug Abuse Patient Records regulations: The Federal rules restrict any use of the information to criminally investigate or prosecute any alcohol or drug abuse patient.[facility] HospitalIn the event this information is protected by the Federal Confidentiality of Alcohol and Drug Abuse Patient Records regulations: The Federal rules restrict any use of the information to criminally investigate or prosecute any alcohol or drug abuse patient.[facility] HospitalIn the event this information is protected by the Federal Confidentiality of Alcohol and Drug Abuse Patient Records regulations: The Federal rules restrict any use of the information to criminally investigate or prosecute any alcohol or drug abuse patient.[facility] HospitalIn the event this information is protected by the Federal Confidentiality of Alcohol and Drug Abuse Patient Records regulations: The Federal rules restrict any use of the information to criminally investigate or prosecute any alcohol or drug abuse patient.[facility] HospitalIn the event this information is protected by the Federal Confidentiality of Alcohol and Drug Abuse Patient Records regulations: The Federal rules restrict any use of the information to criminally investigate or prosecute any alcohol or drug abuse patient.[facility] HospitalIn the event this information is protected by the Federal Confidentiality of Alcohol and Drug Abuse Patient Records regulations: The Federal rules restrict any use of the information to criminally investigate or prosecute any alcohol or drug abuse patient.[facility] HospitalIn the event this information is protected by the Federal Confidentiality of Alcohol and Drug Abuse Patient Records regulations: The Federal rules restrict any use of the information to criminally investigate or prosecute any alcohol or drug abuse patient.[facility] HospitalIn the event this information is protected by the Federal Confidentiality of Alcohol and Drug Abuse Patient Records regulations: The Federal rules restrict any use of the information to criminally investigate or prosecute any alcohol or drug abuse patient.[facility] HospitalIn the event this information is protected by the Federal Confidentiality of Alcohol and Drug Abuse Patient Records regulations: The Federal rules restrict any use of the information to criminally investigate or prosecute any alcohol or drug abuse patient.[facility] HospitalIn the event this information is protected by the Federal Confidentiality of Alcohol and Drug Abuse Patient Records regulations: The Federal rules restrict any use of the information to criminally investigate or prosecute any alcohol or drug abuse patient.[facility] HospitalIn the event this information is protected by the Federal Confidentiality of Alcohol and Drug Abuse Patient Records regulations: The Federal rules restrict any use of the information to criminally investigate or prosecute any alcohol or drug abuse patient.[facility] HospitalIn the event this information is protected by the Federal Confidentiality of Alcohol and Drug Abuse Patient Records regulations: The Federal rules restrict any use of the information to criminally investigate or prosecute any alcohol or drug abuse patient.[facility] HospitalIn the event this information is protected by the Federal Confidentiality of Alcohol and Drug Abuse Patient Records regulations: The Federal rules restrict any use of the information to criminally investigate or prosecute any alcohol or drug abuse patient.[facility] HospitalIn the event this information is protected by the Federal Confidentiality of Alcohol and Drug Abuse Patient Records regulations: The Federal rules restrict any use of the information to criminally investigate or prosecute any alcohol or drug abuse patient.[facility] HospitalIn the event this information is protected by the Federal Confidentiality of Alcohol and Drug Abuse Patient Records regulations: The Federal rules restrict any use of the information to criminally investigate or prosecute any alcohol or drug abuse patient.[facility] HospitalIn the event this information is protected by the Federal Confidentiality of Alcohol and Drug Abuse Patient Records regulations: The Federal rules restrict any use of the information to criminally investigate or prosecute any alcohol or drug abuse patient.[facility] Reason for Visit (unrecogniz ed section and content) Reason Comments PT Discharge Specialty Diagnoses / Procedures Referred By Contac t Referred To Contact [facility] Diagnoses Balance problem Abnormality of gait Procedures CONSULT TO PHYSICAL THERAPY PHYSICAL THERAPY EVALUATION HIGH COMPLEX 45 MINS Ross Blandon MD [address] [place] [address] Phone: tel: fax: [facility] [address] [place] [address] Referral ID Status Reason Start Date Expiration Date Visits Requested Visits Authorized [id number] Authorized PCP Requested Referral Auto-Generate d Referral 04/22/2024 04/22/2025 99 99 Reason Comments Physical Therapy Reason Comments Medication issue Reason Comments Imm/Inj Reason Comments [facility] requesting records Reason Comments Results Reason Comments Nausea & Vomiting Vomiting, nausea, fe luc[place], and vertigo-symptoms started last night Reason Comments Patient Update Medication Request Reason Comments New Patient Ingrown Nail Reason Comments requesting fasting lab orders Reason Comments Ingrown Toenail Established Patient Reason Comments Appointment Reason Comments Refill Request Reason Comments Established Patient nail care Reason Onset Date Comments Immunizations 11/23/2022 Flu vaccination Reason Comments Med Change Request Reason Comments Urinary Incontinence Urinary Frequency New Patient Specialty Diagnoses / Procedures Referred By Contac t Referred To Contact Urology Diagnoses Urinary hesitancy Nocturia Procedures CONSULT TO UROLOGY OFFICE/OUTPATIENT NEW HIGH MDM 60-74 MINUTES Ally De PA-C [address] [place] [address] Referral ID Status Reason Start Date Expiration Date V isits Requested Visits Authorized [id number] Closed PCP Requested Referral 12/08/2022 12/08/2023 1 1 Reason Comments Patient Update Reason Comments Orders Reason Comments Established Patient Follow Up Pain Nail Check Reason Comments Medicare Wellness Exam Reason Comments vaccine question Results Reason Comments Established Patient Reason Comments Established Patient Follow Up Ingrown Toenail Reason Comments Refill Request [facility]PH Managed Refill Reason Onset Date Comments Refill Request 07/10/2023 Reason Comments Established Patient Follow Up Ingrown Toenail Pain Reason Comments nail care Established Patient Follow Up Reason Comments Follow Up Urinary Frequency Reason Onset Date Comments Refill Request 11/27/2023 Reason Onset Date Comments Refill Request 01/04/2024 Reason Comments Established Patient Follow Up nail care Reason Comments Medicare Wellness Exam Reason Onset Date Comments Results 04/24/2024 Reason Comments New Last seen 02/02/20 w ith BP right hand pain Reason Comments PT Eval Reason Onset Date Comments Refill Request 05/27/2024 Reason Comments Established Patient 11 weeks post visit 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 Pain 11 weeks post visit 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 Reason Comments Follow Up 3 weeks post visit r ight thumb CMC arthritis - (14 weeks post injection - here for injection) Reason Comments Established Patient 2 week follow up pro cedure Follow Up 2 week follow up pro cedure Ingrown Toenail 2 week follow up pro cedure Reason Comments Follow Up Reason Comments Established Patient Nail care Reason Comments Inguinal Hernia Lt side Inguinal her dav Care Teams (unrecognized sec tion and content) Audio Recording Engineer Relationship Specialty Start Date End Date Ross Blandon MD [address] [place] [address] PCP - General Family Practice 07/14/20 Audio Recording Engineer Relationship Specialty Start Date End Date Ross Blandon MD [address] [place] [address] PCP - General Family Practice 07/14/20 Audio Recording Engineer Relationship Specialty Start Date End Date Ross Blandon MD [address] [place] [address] PCP - General Family Practice 07/14/20 Audio Recording Engineer Relationship Specialty Start Date End Date Ross Blandon MD [address] [place] [address] PCP - General Family Practice 07/14/20 Audio Recording Engineer Relationship Specialty Start Date End Date Ross Blandon MD [address] [facility] [address] PCP - General Family Medicine 07/14/20 Audio Recording Engineer Relationship Specialty Start Date End Date Ross Blandon MD [address] [facility] [place] [address] PCP - General Family Medicine 07/14/20 Audio Recording Engineer Relationship Specialty Start Date End Date Ross Blandon MD [address] [facility] [place] [address] PCP - General Family Medicine 07/14/20 Audio Recording Engineer Relationship Specialty Start Date End Date Ross Blandon MD [address] [facility] [place] [address] PCP - General Family Medicine 07/14/20 Audio Recording Engineer Relationship Specialty Start Date End Date Ross Blandon MD [address] [facility] [address] PCP - General Family Medicine 07/14/20 Audio Recording Engineer Relationship Specialty Start Date End Date Ross Blandon MD [address] [facility] [place] [address] PCP - General Family Medicine 07/14/20 Audio Recording Engineer Relationship Specialty Start Date End Date Ross Blandon MD [address] [facility] [address] PCP - General Family Medicine 07/14/20 Audio Recording Engineer Relationship Specialty Start Date End Date Ross Blandon MD [address] [facility] [address] PCP - General Family Medicine 07/14/20 Audio Recording Engineer Relationship Specialty Start Date End Date Ross Blandon MD [address] [place] [address] PCP - General Family Medicine 07/14/20 Audio Recording Engineer Relationship Specialty Start Date End Date Ross Blandon MD [address] [place] [address] PCP - General Family Medicine 07/14/20 Audio Recording Engineer Relationship Specialty Start Date End Date Ross Blandon MD [address] [place] [address] PCP - General Family Medicine 07/14/20 Audio Recording Engineer Relationship Specialty Start Date End Date Ross Blandon MD [address] [place] [address] PCP - General Family Medicine 07/14/20 Audio Recording Engineer Relationship Specialty [place] [address] [place] [address] PCP - General Family Medicine 07/14/20 Audio Recording Engineer Relationship Specialty Start Date End Date Ross Blandon MD [address] [place] [address] PCP - General Family Medicine 07/14/20 Audio Recording Engineer Relationship Specialty Start Date End Date Ross Blandon MD [address] [place] [address] PCP - General Family Medicine 07/14/20 Audio Recording Engineer Relationship Specialty Start Date End Date Ross Blandon MD [address] [place] [address] PCP - General Family Medicine 07/14/20 Audio Recording Engineer Relationship Specialty Start Date End Date Ross Blandon MD [address] [facility] [address] PCP - General Family Medicine 07/14/20 Audio Recording Engineer Relationship Specialty Start Date End Date Ross Blandon MD [address] [facility] [address] PCP - General Family Medicine 07/14/20 Audio Recording Engineer Relationship Specialty Start Date End Date Ross Blandon MD [address] [facility] [address] PCP - General Family Medicine 07/14/20 Audio Recording Engineer Relationship Specialty Start Date End Date Ross Blandon MD [address] [place] [address] PCP - General Family Medicine 07/14/20 Jennifer Kumar, AIRCRAFT PARTS ASSEMBLER.PAPER MACHINE SUPERVISOR [address] [place] [address] [facility] 02/09/24 Ally De PA-C [address] [place] [address] [facility] 02/09/24 Audio Recording Engineer Relationship Specialty Start Date End Date Ross Blandon MD [address] [place] [address] PCP - General Family Medicine 07/14/20 Jennifer Kumar, AIRCRAFT PARTS ASSEMBLER.PAPER MACHINE SUPERVISOR [address] [facility] [place] [address] [facility] 02/09/24 Ally De PA-C [address] [place] [address] [facility] 02/09/24 Audio Recording Engineer Relationship Specialty Start Date End Date Ross Blandon MD [address] [place] [address] PCP - General Family Medicine 07/14/20 Jennifer Kumar, ABY.PAPER MACHINE SUPERVISOR [address] [place] [address] [facility] 02/09/24 Ally De PA-C [address] [place] [address] [facility] 02/09/24 Audio Recording Engineer Relationship Specialty Start Date End Date Ross Blandon MD [address] [place] [address] PCP - General Family Medicine 07/14/20 Jennifer Kumar, ABY.PAPER MACHINE SUPERVISOR [address] [place] [address] [facility] 02/09/24 Ally De PA-C [address] [place] [address] [facility] 02/09/24 Audio Recording Engineer Relationship Specialty Start Date End Date Ross Blandon MD [address] [place] [address] PCP - General Family Medicine 07/14/20 Jennifer Kumar, AIRCRAFT PARTS ASSEMBLER.PAPER MACHINE SUPERVISOR [address] [place] [address] [facility] 02/09/24 Ally De PA-C [address] [place] [address] [facility] 02/09/24 Audio Recording Engineer Relationship Specialty Start Date End Date Ross Blandon MD [address] [place] [address] PCP - General Family Medicine 07/14/20 Jennifer Kumar APRN.PAPER MACHINE SUPERVISOR [address] [place] [address] [facility] 02/09/24 Ally De PA-C [address] [place] [address] [facility] 02/09/24 Audio Recording Engineer Relationship Specialty Start Date End Date Ross Blandon MD [address] [place] [address] PCP - General Family Medicine 07/14/20 Jennifer Kumar, ABY.PAPER MACHINE SUPERVISOR [address] [place] [address] [facility] 02/09/24 Ally De PA-C [address] [place] [address] [facility]/09/24 Audio Recording Engineer Relationship Specialty Start Date End Date Ross Blandon MD [address] [place] [address] PCP - General Family Medicine 07/14/20 Jennifer Kumar, AIRCRAFT PARTS ASSEMBLER.PAPER MACHINE SUPERVISOR [address] [place] [address] [facility] 02/09/24 Ally De PA-C [address] [place] [address] [facility] 02/09/24 Audio Recording Engineer Relationship Specialty Start Date End Date Ross Blandon MD [address] [place] [address] PCP - General Family Medicine 07/14/20 Jennifer Kumar APRN.PAPER MACHINE SUPERVISOR [address] [place] [address] [facility] 02/09/24 Ally De PA-C [address] [place] [address] [facility] 02/09/24 Audio Recording Engineer Relationship Specialty Start Date End Date Ross Blandon MD [address] [place] [address] PCP - General Family Medicine 07/14/20 Jennifer Kumar, ABY.PAPER MACHINE SUPERVISOR [address] [place] [address] [facility] 02/09/24 Ally De PA-C [address] [place] [address] [facility] 02/09/24 Audio Recording Engineer Relationship Specialty Start Date End Date Ross Blandon MD [address] [place] [address] PCP - General Family Medicine 07/14/20 Jennifer Kumar, ABY.PAPER MACHINE SUPERVISOR [address] [place] [address] [facility] 02/09/24 Ally De PA-C [address] [place] [address] [facility] 02/09/24 Audio Recording Engineer Relationship Specialty Start Date End Date Ross Blandon MD [address] [place] [address] PCP - General Family Medicine 06/09/24 Jennifer Kumar APRN.PAPER MACHINE SUPERVISOR [address] [place] [address] [facility] 02/09/24 Ally De PA-C [address] [place] [address] [facility] 02/09/24 Audio Recording Engineer Relationship Specialty Start Date End Date Ross Blandon MD [address] [place] [address] PCP - General Family Medicine 06/09/24 Jennifer Kumar, AIRCRAFT PARTS ASSEMBLER.PAPER MACHINE SUPERVISOR [address] [place] [address] [facility] 02/09/24 Ally De PA-C [address] [place] [address] [facility] 02/09/24 Audio Recording Engineer Relationship Specialty Start Date End Date Ross Blandon MD [address] [place] [address] PCP - General Family Medicine 06/09/24 Jennifer Kumar APRN.PAPER MACHINE SUPERVISOR [address] [place] [address] [facility] 02/09/24 Ally De PA-C [address] [place] [address] [facility] 02/09/24 Audio Recording Engineer Relationship Specialty Start Date End Date Ross Blandon MD [address] [place] [address] PCP - General Family Medicine 06/09/24 Jennifer Kumar APRN.PAPER MACHINE SUPERVISOR [address] [place] [address] [facility] 08/04/24 Ally De PA-C [facility] [place] [address] [facility] 08/04/24 Audio Recording Engineer Relationship Specialty Start Date End Date Ross Blandon MD [address] [place] [address] PCP - General Family Medicine 06/09/24 Jennifer Kumar APRN.PAPER MACHINE SUPERVISOR [facility] [place] [address] [facility] 08/04/24 Ally De PA-C [address] [place] [address] [facility] 08/04/24 Audio Recording Engineer Relationship Specialty Start Date End Date Ross Blandon MD [address] [place] [address] PCP - General Family Medicine 06/09/24 Jennifer Kumar, ABY.PAPER MACHINE SUPERVISOR [address] [place] [address] [facility] 08/04/24 Ally De PA-C [address] [place] [address] [facility] 08/04/24 Audio Recording Engineer Relationship Specialty Start Date End Date Ross Blandon MD [address] [place] [address] PCP - General Family Medicine 06/09/24 Jennifer Kumar, AIRCRAFT PARTS ASSEMBLER.PAPER MACHINE SUPERVISOR [address] [place] [address] [facility] 08/04/24 Ally De PA-C [address] [place] [address] [facility] 08/04/24 Audio Recording Engineer Relationship Specialty Start Date End Date Ross Blandon MD [address] [place] [address] PCP - General Family Medicine 06/09/24 Jennifer Kumar, AIRCRAFT PARTS ASSEMBLER.PAPER MACHINE SUPERVISOR [address] [place] [address] [facility] 08/04/24 Ally De PA-C [address] [place] [address] [facility] 08/04/24 Audio Recording Engineer Relationship Specialty Start Date End Date Ross Blandon MD [address] [place] [address] [id number] PCP - General Family Medicine 06/09/24 Jennifer Kumar APRN.CNP [address] [place] [id number] [facility] 08/04/24 Ally De PA-C [address] [place], [place] [id number] [facility] 08/04/24 FOR RECORDS PERTAINING TO PATIENTS WHO ARE OR HAVE BEEN ENROLLED IN A CHEMICAL DEPENDENCY/SUBSTANCEABUSE PROGRAM, SOME INFORMATION MAY BE OMITTED. This clinical summary was aggregated from multiple sources. Caution should be exercised in using it in the provision of clinical care. This summary normalizes information from multiple sources, and as a consequence, information in this document may materially change the coding, format and clinical context of patient data. In addition, data may be omitted in some cases. CLINICAL DECISIONS SHOULD BE BASED ON THE PRIMARY CLINICAL RECORDS. [employer] provides no warranty or guarantee of the accuracy or completeness of information in this document.
[2024-12-27 18:30] LABS: Hematocrit 47.3 % (40-54); Hemoglobin 15.9 g/dL (13.0-16.5); Immature Granulocytes Count 0.050 X10^3/uL (0.0-0.0); Mean Corp Hgb Conc 33.6 g/dL (32-36); Mean Corpuscular Volume 95.2 fL (80-94); Mean Platelet Vol. 10.0 fl (6.2-12.0); NRBC Flagged by Analyzer 0 % (0-5); Platelet Count 178 K/mm3 (150-450); RBC Distribution Width CV 12.7 % (11.6-14.6); RBC Distribution Width SD 44.2 fl (35.1-43.9); Red Blood Count 4.97 M/mm3 (4.6-6.2); White Blood Count 12.0 K/mm3 (4.4-11.0)
[2024-12-27 18:48] LABS: Prothrombin Time (Protime)PT. 13.8 SECONDS (11.7-14.9)
[2024-12-27 18:49] LABS: Partial Thromboplast Time 29.3 Seconds (24.1-36.2)
[2024-12-27 18:53] LABS: Anion Gap 11 (5-15); BUN 22 mg/dL (4-19); BUN/Creat Ratio 21.3 RATIO (10-20); Calcium,Total 9.5 mg/dL (7.6-11.0); Carbon Dioxide 23.8 mmol/L (21.0-32.0); Chloride 102 mmol/L (98-108); Estimated Creatinine Clearance 47.71 ml/min (50-250); Glucose 133 mg/dL (70-99); Potassium 4.2 mmol/L (3.3-5.1); Troponin T High Sensitivity 27 ng/L (<=22)
--- NOTE | 2024-12-27 19:36 | PCM.HP.STD ---
[facility] - General General Date of Admission: 12/27/24 Date of Service: 12/27/24 Chief Complaint: Expressive Aphasia. [facility] Narrative ROSA MARIA PERAZA, is a 84 M with a past medical history of essential hypertension; on lisinopril and metoprolol, overweight; with BMI of 26.1 this admission, former tobacco abuse, history of prostatectomy, GERD; on omeprazole, OA and very recent Left inguinal hernia repair at [facility] yesterday by Dr. Casanova who presents to [facility] ER complaining of expressive aphasia. Mr. Peraza reports his symptoms began at approximately 10 AM earlier today when he woke up from a nap with difficulty finding words leaving him unable to finish sentences and appearing lethargic to his family, which is unusual for him. He denies focal neurologic weakness, paresthesias, history of atrial fibrillation, history of vascular disease or history of CVA. He states he stopped taking his daily baby aspirin ~15 days ago and he denies current use of anticoagulants. He admits to excessive pain at his surgical incision site with grogginess and fatigue since this morning but he denies increasing redness or obvious signs of infection of his surgical site. He denies associated fever, chills, changes in vision, discharge from eyes, runny nose, sore throat, chest pain, palpitations, heart racing, lower extremity edema, shortness of breath, cough, wheezing, nausea, vomiting, diarrhea, constipation, dysuria, hematuria, arthralgias, myalgias, headache or rash. In the ER Stroke Alert was immediately called with CT scan of the brain without contrast that revealed ill-defined hypodensity within the Left periventricular morales radiata suggestive of subacute/chronic infarction although acute on subacute/chronic infarction is not entirely excluded with no definite acute large territorial infarction and nonspecific ethmoid sinus/nasal cavity soft tissue structures measuring ~2.6 cm x ~2.5 cm at the midline followed by CTA of the head and neck with IV contrast that showed no acute large vessel occlusion or high-grade stenosis with nonspecific ethmoid sinus/nasal cavity soft tissue structures measuring ~2.6 x ~2.5 cm. He was also noted to have a Fever of 100.1 ?F with Leukocytosis of 12K present on admission with CT evidence of Urinary Retention with patient requesting Norton and with no obvious source of infection noted at the time of admission. He was then admitted to the PCU under observation status for a stay that is expected to be less than 2 midnights. [facility] Medical History (Updated 12/27/24 @ 23:[address] Darrell Reeves DO) HTN (hypertension) Home Medications ?Medication ?Instructions ?Recorded ?Last Taken ?Type lisinopril 20 mg tablet 20 mg PO DAILY BP 12/27/24 Unknown History metoprolol succinate 50 mg 50 mg PO DAILY GERD 12/27/24 Unknown History tablet,extended release 24 hr omeprazole 20 mg capsule,delayed 20 mg PO DAILY GERD 12/27/24 Unknown History release oxycodone-acetaminophen 5 mg-325 1 tab PO 4X/DAY PRN PRN pain 12/27/24 Unknown History mg tablet Allergy/AdvReac Type Severity Reaction Status Date / Time Penicillins Allergy Hives Verified 12/27/24 17:32 Social History Smoking Status: Former smoker Vital Signs Vital Signs Vital Signs: 12/27/24 17:32 12/27/24 18:01 12/27/24 18:09 Temperature 99.1 F Temperature Source Oral Pulse Rate 84 Respiratory Rate 16 Respiratory Effort Normal Non-Labored Respiratory Pattern Normal Blood Pressure 171/84 H Blood Pressure Mean 113 Pulse Ox 96 96 Oxygen Delivery Method Room Air Room Air 12/27/24 18:09 12/27/24 18:09 12/27/24 19:06 Temperature Temperature Source Pulse Rate 84 82 80 Respiratory Rate 16 30 H 12 Respiratory Effort Respiratory Pattern Blood Pressure 165/88 H 164/73 H 167/76 H Blood Pressure Mean 113 103 106 Pulse Ox 97 95 97 Oxygen Delivery Method Room Air Room Air Room Air Weight Weight: 162 lb Body Mass Index (BMI) 26.1 Physical Exam Const alert, oriented x3, no apparent distress, average body habitus and healthy appearing General Appearance: cooperative HEENT normocephalic, head/scalp atraumatic, hearing grossly normal bilaterally and moist oral mucous membranes Eyes PERRL, EOMs intact bilaterally and conjunctivae normal Neck no lymphadenopathy, supple and no JVD Resp normal respiratory effort, no retractions, no use of accessory muscles and clear to auscultation bilaterally Cardio regular rate and regular rhythm GI non-distended GI Narrative: LLQ surgical incision with no discharge or drainage around dressing with significant amount of ecchymoses that extends down into the Left hemiscrotum with LLQ TTP. Normoactive bowel sounds. Extremity normal to inspection, full ROM and no clubbing, cyanosis or edema Skin Skin Narrative: LLQ surgical incision with no discharge or drainage around dressing with significant amount of ecchymoses that extends down into the Left hemiscrotum Neuro oriented x3, CN's II-XII intact bilaterally, moves all extremities and no focal motor deficits Sensorium / Orientation: awake, alert, oriented to person, oriented to place and oriented to time Speech: speech normal Psych affect normal Results Medical Records Data Attestation: I reviewed the patient's medical records Lab / Micro Data Attestation: I reviewed the patient's lab results. 12/27/24 18:20 12/27/24 18:20 Labs: Laboratory Results - last 24 hr 12/27/24 18:18: POC Glucose 127 H 12/27/24 18:20: WBC 12.0 H, RBC 4.97, Hgb 15.9, Hct 47.3, MCV 95.2 H, MCH 32.0, MCHC 33.6, RDW Std Deviation 44.2 H, RDW Coeff of Tari 12.7, Plt Count 178, MPV 10.0, Immature Gran % (Auto) 0.400, Neut % (Auto) 81.0 H, Lymph % (Auto) 6.0 L, Harnett % (Auto) 12.1 H, Eos % (Auto) 0.2, Baso % (Auto) 0.3, Absolute Neuts (auto) 9.7 H, Absolute Lymphs (auto) 0.72 L, Nucleated RBC % 0, PT 13.8, INR 1.0, APTT 29.3, Sodium 137, Potassium 4.2, Chloride 102, Carbon Dioxide 23.8, Anion Gap 11, BUN 22 H, Creatinine 1.04, Estim Creat Clear Calc 47.71 L, Est GFR (MDRD) Non-Af 71, BUN/Creatinine Ratio 21.3 H, Glucose 133 H, Calcium 9.5, Troponin T High Sens 27 H Rhythm Strip Rhythm Strip: Sinus Rhythm Rate: 82 Ectopy: None Imaging Radiology Impression Brain CT 12/27/24 18:09 IMPRESSION: Ill-defined hypodensity within the left periventricular morales radiata suggestive of subacute/chronic infarction although acute on subacute/chronic infarction is not entirely excluded. Otherwise, no definite acute large territorial infarction. Nonspecific ethmoid sinus/nasal cavity soft tissue structures measuring approximally 2.6 x 2.5 cm at the midline (series 4, image 14). Dr. Villafana was notified by Larry Saenz at 6:50 pm EST on December 27, 2024. Reading Location: [id number] Imaging Services [address] [place], [place] [address] Chest 1 View (Portable) MR#: [id number] Acct: [id number] Name: ROSA MARIA PERAZA Rep #: [id number] : 1940 M 84 From: Nickolas Guy MD PCP: Dr. Ross Finn MD Status: ADM IN Study: Chest 1 View (Portable) Date of Exam: 12/27/24 Exam# [id number] Ordering Dr: Darrell Reeves DO PROCEDURE: CHEST 1 VIEW (PORTABLE) 12/27/2024 REASON FOR EXAM: FEVER TECHNIQUE: Frontal view of the chest. COMPARISON: None available. FINDINGS: Hardware: None. Heart: The heart size is normal. Lungs: The lungs are clear. No pneumothorax or pleural effusion. Bones: Degenerative changes are identified within the thoracic spine. RAD/Chest 1 View (Portable) IMPRESSION: No Acute Findings. Reading Location: [facility] CC: Dr. Darrell Reeves DO; Dr. Ross Finn MD ~ Atmospheric Physicist: Signed [facility] Imaging Services [address] [place] [address] [id number] Abdomen/Pelvis without Cont MR#: [id number] Acct: [id number] Name: ROSA MARIA PERAZA Rep #: [id number] : 1940 84 From: Nickolas Guy MD PCP: Dr. Ross Finn MD Status: ADM IN Study: Abdomen/Pelvis without Cont Date of Exam: 12/27/24 Exam# [id number] Ordering Dr: Darrell Reeves DO PROCEDURE: ABDOMEN/PELVIS WITHOUT CONT 12/27/2024 REASON FOR EXAM: FEVER TECHNIQUE: Procedure Code: [id number] Modality: CT Procedure: ABDOMEN/PELVIS WITHOUT CONT Noncontrast technique limits evaluation of the abdominal and pelvic viscera. Coronal and Sagittal reconstruction series were provided. One or more dose reduction techniques were used (e.g., Automated exposure control, adjustment of the mA and/or kV according to patient size, use of iterative reconstruction technique). COMPARISON: None available. FINDINGS: Lung bases: Mild dependent atelectasis Liver: Normal size. No obvious mass. Gallbladder: Unremarkable. No biliary ductal dilatation. Spleen: Normal size. Pancreas: Diffuse fatty atrophy. Adrenals: Unremarkable. Kidneys: No urolithiasis. No hydronephrosis. Exophytic right kidney lower pole cyst measures 8.3 x 10.0 x 8.0 cm. Adjacent cyst measures 4.1 x 2.8 x 5.0 cm. Bladder: Excreted contrast fills the bladder. No bladder wall thickening. Reproductive Organs/soft tissues: Scattered soft tissue gas locules noted in the left hemiscrotum ascending to the anterior left perineum, left inguinal canal, and left abdominal wall. There is associated fat stranding and mild skin thickening/ulceration. Stomach/duodenum: Small hiatal hernia. Duodenum unremarkable. Bowel: Scattered colonic diverticulosis. A loop of the distal transverse colon is seen protruding into the left inguinal hernia with extensive surrounding fat stranding, findings are concerning for reactive colitis/diverticulitis. No evidence of bowel obstruction. Appendix: The appendix is not identified. There is no inflammatory process identified in the right lower quadrant to suggest appendicitis. Lymph nodes: Unremarkable. Vasculature: Advanced atherosclerotic calcifications of the abdominal aorta and its branches. No aneurysm. Peritoneum / Retroperitoneum: No free fluid or air. Bones: Degenerative changes of the spine and bilateral hips. CT/Abdomen/Pelvis without Cont IMPRESSION: 1. Subcutaneous emphysema in the left hemiscrotum, anterior left perineum, left inguinal canal, and left abdominal wall. Associated soft tissue fat stranding as well as skin thickening/ulceration. Findings are concerning for an infectious etiology, possibly with a gas-forming organism. Clinical correlation suggested. 2. Scattered colonic diverticulosis with thickening and fat stranding of a loop of the distal descending colon protruding into the left inguinal canal, findings are concerning for reactive colitis/diverticulitis. 3. Adjacent exophytic left renal cysts measuring 10.0 cm and 5.0 cm. Reading Location: [facility] CC: Dr. Darrell Reeves DO; Dr. Ross Finn MD ~ Atmospheric Physicist: Signed Assessment & Plan Assessment/Plan (1) Aphasia due to acute stroke: (2) Postprocedural state: (3) Fever: QUALIFIERS: Fever type: unspecified Qualified Code(s): R50.9 - Fever, unspecified (4) Leukocytosis: QUALIFIERS: Leukocytosis type: unspecified Qualified Code(s): D72.829 - Elevated white blood cell count, unspecified (5) Urinary retention: PLAN: Plan 1. Expressive Aphasia with Stroke Alert was immediately called with CT scan of the brain without contrast that revealed ill-defined hypodensity within the Left periventricular morales radiata suggestive of subacute/chronic infarction although acute on subacute/chronic infarction is not entirely excluded with no definite acute large territorial infarction and nonspecific ethmoid sinus/nasal cavity soft tissue structures measuring ~2.6 cm x ~2.5 cm at the midline followed by CTA of the head and neck with IV contrast that showed no acute large vessel occlusion or high-grade stenosis with nonspecific ethmoid sinus/nasal cavity soft tissue structures measuring ~2.6 x ~2.5 cm - Admit to PCU under observation status. Continue ECASA and start statin. Check MRI of brain without contrast to confirm suspected CVA on CT. Check echocardiogram to evaluate LVEF. Check carotid Doppler to evaluate for stenosis. Check TSH, B12, Folate, HgbA1c, Lipid Profile, SHRUTI and UDS. Give acetaminophen prn for pain or fever. Give ondansetron IV prn for nausea and vomiting. Finally, [facility] teleneurology consult is greatly appreciated. 2. Fever of 100.1 ?F with Leukocytosis of 12K present on admission with CT scan of the abdomen and pelvis positive for subcutaneous emphysema in the Left hemiscrotum, anterior Left perineum, Left inguinal canal, and Left abdominal wall with associated soft-tissue fat stranding as well as skin thickening/ulcerations with findings concerning for infectious etiology possibly with a gas-forming organism with clinical correlation recommended in the setting of very recent Left inguinal hernia repair at [facility] yesterday by Dr. Casanova causing withdrawal of prophylactic daily BASA complicating #1 - Checked CXR, CT scan of the abdomen/pelvis without contrast and UA to help identify potential source of infection. CT findings suspected to be due to postoperative changes but in light of possible acute infection we will start IV vancomycin, IV levofloxacin and IV metronidazole in light of PCN allergy (hives) and await culture and sensitivity data. If patient worsens in spite of conservative treatment and may necessitate transfer back to [facility] for follow-up surgical care. 3. Acute Urinary Retention in the setting of previous prostatectomy compounding #1 & #2 - Norton placed with UA pending at this time. 4. Overweight; with BMI of 26.1 this admission adding to the medical complexity #1 - #3 - Weight loss will be recommended. Check TSH. 5. Essential hypertension; on lisinopril and metoprolol - Hold scheduled antihypertensives to allow for 'permissive hypertension' in the setting of suspected CVA outlined in #1. 6. Former tobacco abuse - Noted. 7. GERD; on omeprazole - Maintain PPI. 8. OA - Give acetaminophen prn for pain or fever. 9. DVT prophylaxis - Enoxaparin 40 mg sq daily plus SCD's. Total time: Approximately (but not less than) 70 minutes. Charges/Coding Visit Charges OBSV E&M: 70502 Observ/hosp same date L2
--- NOTE | 2024-12-27 19:45 | CDU_ITS ---
Reason For Study Reason For Study: Evaluate for Stenosis Rt. Velocities/BP Lt. Velocities/BP Prox CCA 143/12 cm/sec. Prox CCA 88/7 cm/sec. Mid CCA 82/10 cm/sec. Mid CCA 71/9 cm/sec. Dist CCA 56/8 cm/sec. Dist CCA 55/8 cm/sec. Prox ICA 37/9 cm/sec. Prox ICA 134/16 cm/sec. Mid ICA 71/22 cm/sec. Mid ICA 138/16 cm/sec. Dist ICA 103/27 cm/sec. Dist ICA 64/13 cm/sec. Rt. ICA/CCA = 1.3. Lt. ICA/CCA = 1.9. Prox ECA 93/2 cm/sec. Prox ECA 114/7 cm/sec. Rt. Vert. 66/15 cm/sec. Lt. Vert. 47/5 cm/sec. Right Extracranial There is intimal thickening but no significant atherosclerotic plaque noted in the right common carotid artery. Rt CCA prox is very tortuous and measures 1.52cm. There is intimal thickening but no significant atherosclerotic plaque noted in the right internal carotid artery. There is heterogeneous, irregular atherosclerotic plaque noted in the right external carotid artery. Antegrade flow is noted in the right vertebral artery. Left Extracranial There is heterogeneous, irregular atherosclerotic plaque noted in the left common carotid artery. There is heterogeneous, irregular atherosclerotic plaque noted in the left internal carotid artery. There is intimal thickening but no significant atherosclerotic plaque noted in the left external carotid artery. Antegrade flow is noted in the left vertebral artery. Procedure Carotid Duplex 75015. This is a Carotid Duplex examination using B-mode, color flow and specral Doppler. Exam performed portable in patient room. VL/Carotid Duplex Ultrasound Interpretation Summary Normal right extracranial internal carotid. Moderate (50-69%) stenosis left extracranial internal carotid. Patent and antegrade vertebrals bilaterally. Ordering Physician: Darrell Reeves Referring Physician: Ross Finn Performed By: Roopa Mustafa, EVARISTO, RVT
--- NOTE | 2024-12-27 19:45 | ECHOD_ITS ---
Reason For Study Reason For Study: TIA/Stroke Procedure This was a 2D Doppler, Color Flow transthoracic echocardiogram. Exam performed portable in patient room. Left Ventricle Normal LV size. The left ventricular ejection fraction is 70 %. Stage 1 diastolic dysfunction. No regional wall motion abnormalities noted. Right Ventricle Normal RV size. Normal systolic function. Atria The left and right atria are normal. No doppler evidence for ASD. Mitral Valve Moderate mitral annular calcification. The mitral valve chordae are thickened and/or calcified. Mean transmitral valve gradient 4 mmHg. Mild (1+) mitral valve insufficiency. Tricuspid Valve Normal tricuspid valve. Trivial tricuspid valve insufficiency. Pulmonary artery systolic pressure is 28 mmHg. Aortic Valve Trisinus/trileaflet aortic valve. Moderate aortic valve calcification. Aortic valve sclerosis without stenosis. Pulmonic Valve The pulmonic valve is not well visualized. Trivial pulmonic valve insufficiency. Great Vessels Moderately dilated ascending aorta. Pericardium/Pleural No pericardial effusion. MMode/2D Measurements & Calculations LVIDd: 3.8 cm IVSd: 0.87 cm LVOT diam: 2.0 cm LVIDs: 2.3 cm LVPWd: 0.83 cm LVOT area: 3.1 cm2 RVDd: 3.5 cm FS: 41.1 % Ao root diam: 4.7 cm asc Aorta Diam: 4.6 cm LAV(MOD- bp): 46.0 ml LAV(MOD- bp) Indexed: 25.2 ml/m2 LAV(MOD- sp2): 38.7 ml LAV(MOD- sp4): 36.0 ml SV(MOD- sp4): 30.1 ml LVAd ap4: 21.5 cm2 LVAd ap2: 21.7 cm2 LVLd ap4: 8.0 cm LVLd ap2: 7.9 cm SI(MOD- sp4): 16.5 ml/m2 EDV(MOD-sp4): 50.6 ml EDV(MOD-sp2): 49.8 ml EDV(sp4-el): 48.7 ml EDV(sp2-el): 50.9 ml LVAs ap4: 11.9 cm2 LVAs ap2: 11.5 cm2 LVLs ap4: 6.8 cm LVLs ap2: 6.3 cm ESV(MOD-sp4): 20.5 ml ESV(MOD-sp2): 19.6 ml ESV(sp4-el): 17.6 ml ESV(sp2-el): 17.7 ml EF(MOD-sp4): 59.5 % EF(MOD-sp2): 60.6 % EF(sp4-el): 63.9 % SV(MOD-sp2): 30.2 ml SV(sp4-el): 31.1 ml Ao sinus diam: 3.9 cm SI(MOD-sp2): 16.5 ml/m2 Ao ST Junction: 2.9 cm LA dimension(2D): 3.3 cm LA A4 area: 14.4 cm2 TAPSE: 1.8 cm RA A4 area: 14.1 cm2 Time Measurements MV dec time: 0.35 sec Doppler Measurements & Calculations MV E max amaury: 69.3 cm/sec Lat Peak E' Amaury: 9.8 cm/sec Med Peak E' Amaury: 5.2 cm/sec MV A max amaury: 161.7 cm/sec E/E' lat: 7.1 E/E' med: 13.4 MV E/A: 0.43 MV V2 max: 186.6 cm/sec MV P1/2t max amaury: 108.4 cm/sec Ao V2 max: 165.5 cm/sec MV max P.9 mmHg MV P1/2t: 98.6 msec Ao max P.0 mmHg MV V2 mean: 92.5 cm/sec MV dec slope: 321.9 cm/sec2 Ao V2 mean: 121.8 cm/sec MV mean P.1 mmHg Ao mean P.4 mmHg MV V2 VTI: 43.7 cm MVA(P1/2t): 2.2 cm2 Ao V2 VTI: 29.2 cm MVA(VTI): 1.5 cm2 AV (velocity ratio): 0.72 JULIAN(I,D): 2.3 cm2 JULIAN(V,D): 2.0 cm2 LV V1 max: 107.1 cm/sec SV(LVOT): 66.2 ml PA V2 max: 124.2 cm/sec LV V1 max P.6 mmHg LV V1 mean P.3 mmHg LV V1 mean: 88.2 cm/sec LV V1 VTI: 21.2 cm TR max amaury: 252.3 cm/sec TR max P.5 mmHg ECHO/Echo Complete Interpretation Summary The left ventricular ejection fraction is 70 %. Stage 1 diastolic dysfunction. Moderate mitral annular calcification. Mild (1+) mitral valve insufficiency. Moderate aortic valve calcification. Aortic valve sclerosis without stenosis. Moderately dilated ascending aorta. Consider CT scan for further evaluation. Ordering Physician: Darrell Reeves Referring Physician: Ross Finn Performed By: Kimmie Trinidad RDCS
--- OUTSIDE RECORDS SUMMARY | 2024-12-27 20:14 | XMS RPT_ITS | CCD ---
Author Organization [facility] CliniSyia Care Team Providers Care Bingo Attendant Name Role Phone Ross Blandon MD Primary Care Provider [phone] Ross Blandon MD Primary Care Provider [phone] José SHIPPING CLERK PACKING.Jennifer COLES Unavailable Alyl De PA-C Unavailable Ross Blandon MD Primary Care Provider José SHIPPING CLERK PACKING.Jennifer COLES Unavailable Ally De PA-C Unavailable ROSS BLANDON Referring Unavailable BARBER, ROSS A Primary Care Unavailable BARBER, ROSS A Primary Care Unavailable TESTAPOLINAR BIRCH Attending Unavailable BARBER, ROSS A Primary Care Unavailable VETOIGLMERTZ, TRAN Referring Unavailable VETOGILMERTZ, TRAN Attending Unavailable [...] G; Translations: [PENICILLIN G] Drug Allergy 06-03-2002 [facility] Work Phone: (20 sources) Sertraline; Translations: [SERTRALINE HCL] Drug Allergy 12-11-2016 Other: See Comments [facility] Work Phone: Medications Current Medications Medication Drug [...] Comment on above: TAKE 1 CAPSULE BY [facility] ONCE DAILY. levoFLOXacin 750 mg oral tablet (1 source) Quinolone Antimicrobial Start: 07-16-2020 End: 07-26-2020 take 1 tablet by mouth once daily levoFLOXacin (LEVAQUIN) 750 mg tablet Take 1 tablet by mouth once daily for 10 days. 10 tablet 0 07/16/2020 07/26/2020 Comment on above: Take 1 tablet by [facility] once daily for 10 days. 10 ml [...] (20 sources) Patient encounter status; Translations: [Other terminal gauger (current) drug therapy] Onset: 04-10-2022 Episodic Other aftercare (20 sources) Surgical follow-up; Translations: [Encounter for follow-up examination after completed treatment for conditions other than malignant neoplasm] Onset: 09-21-2003 Resolved: 08-29-2016 08-29-2016 Episodic Other aftercare (1 source) Other intermediate (current) drug therapy; Translations: [Medication management] Onset: [...] Test Name Value Interpretation Reference Range Facility [facility] 12-11-2024 [facility] Telephone (FAMPWS) -------- ANDREW PERAZA MD ([id number]) 1940 M Date Time Provider Department 12/11/24 [facility] visit today, we recorded the [...] visit, subsequent [Z00*04/18/2021 Living will on file [[id number]] 04/18/2021 DDD (degenerative disc disease), cervical [M50.*04/18/2021 Aortic root dilatation (HCC) [I77.810] 04/18/2021 Medication management [Z79.899] 04/10/2022 Advance directive discussed with patient [Z71.8*04/19/2022 Low serum vitamin B12 [E53.8] 04/19/2022 Elevated blood sugar [R73.9] 04/19/2022 Balance problem (more content not included)... [facility] HISTORY PHYSICALon HISTORY PHYSICAL HNO ID: [id number] Author: CHASTITY LACY APRN.MANAGER BRAND Service: ? Author Type: Nurse Practitioner Type: [...] of difficult airway No abnormal airway history Mnior Activity Status Index: METS: Walk indoors, such [...] Admin: COVID-19 vaccine, age 12+ yr, bivalent ([employer]) Only the first 3 history entries have been loaded, but more history exists. 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 He reports a left-sided hernia that has required (more content not included)... [facility] CNOVon 11-17-2024 CNOV Office Visit (GENSWS ) -------- ANDREW PERAZA MD ([id number]) 1940 M Date Time Provider Department 11/17/24 1:15 PM DONTAE ROWE During your visit today, we recorded the following information about you: Pulse Respiration Blood pressure Weight 68/minute 16/minute 133/71 74.9 kg Dontae Rowe MD 11/17/2024 1:24 PM Signed HISTORY AND [...] 03/21/2018 Added automatically from request for surgery [id number] Elevated blood sugar 04/19/2022 Essential hypertension 01/22/2007 03/11/2019: Home BP Cuff Validated. Home BP: 118/58 Office BP: 128/72 GERD without esophagitis 03/21/2018 Added automatically from request for surgery [id number] H/O BCC skin cancer: other malignant neoplasm of skin 06/21/2010 History of colonic polyps 03/21/2018 Added automatically from request for surgery [id number] History of transfusion Impotence of organic origin [...] AGE 5 YRS/> REDUCIBLE Right 12/08/2014 [facility] SHOULDER ARTHROSCOPY/SURGERY Right 1988 SHOULDER ARTHROSCOPY/SURGERY [...] this visit. (more content not included)... [facility] CNOVon 10-23-2024 CNOV Office Visit (PODIWS ) -------- ANDREW PERAZA MD ([id number]) 1940 M Date Time Provider Department 10/23/24 [...] Objective: [facility]: DP and PT pulses are [...] Apolinar Blevins DPM Referring Provider: APOLINAR BLEVINS [[id number]] Allergies As of Date: 10/23/2024 Noted Allergy [...] Insomnia [G47.00] more content not included)... [facility] CNOVon 10-13-2024 CNOV Office Visit (ORTHWS ) -------- ANDREW PERAZA MD ([id number]) 1940 M Date Time Provider Department 10/13/24 10:30 AM TRAN YOUNG During your visit [...] PA-C Department of Orthopaedics Orthopaedics [address] [facility] [address] Dept: [phone] Dept October 13, 2024 CHIEF COMPLAINT: Follow [...] these instructions. Informed Consent Consent Obtained: Verbal Conover Protocol A moment to CARE was completed. [...] Imaging: IMPRESSION: (more content not included)... [facility] Small Joint Arthro/Inj: R th umb [...] these instructions. Informed Consent Consent Obtained: Verbal Conover Protocol A moment to CARE was completed. [...] implant(s) inserted. SIGN OUT No specimen collected. [facility] CNOVon 09-02-2024 CNOV Office Visit (PODIWS ) -------- ANDREW PERAZA MD ([id number]) 1940 M Date Time Provider Department 09/02/24 [...] to call me My cell number is [phone] Apolinar Blevins 09/09/2024 10:51 PM Signed FOLLOW [...] 5.5 4.3 - 5.6 % Final Comment: [employer] guidelines indicate that patients with [...] 03/21/2018 Added automatically from request for surgery [id number] Elevated blood sugar 04/19/2022 Essential hypertension 01/22/2007 03/11/2019: Home BP Cuff Validated. Home BP: 118/58 Office BP: 128/72 GERD without esophagitis 03/21/2018 Added automatically from request for surgery [id number] H/O BCC skin cancer: other malignant neoplasm of skin 06/21/2010 History of colonic polyps 03/21/2018 Added automatically from request for surgery [id number] History of transfusion Impotence of organic origin [...] TRANSORAL ADDIS (more content not included)... [facility] CNOVon 08-20-2024 CNOV Office Visit (PODIMM ) -------- ANDREW PERAZA MD ([id number]) 1940 M Date Time Provider Department 08/20/24 [...] drainage. He is scheduled to go to [place] in 3 weeks. PAIN EVALUATION 08/20/2024 0905 Pain Level: 5 Pain Location: Toe Description: Sore Duration Amount of Time: 1 Duration Units: Months Frequency: Continuous Intervention/Comfort measure: Relaxation;Reposition Hemoglobin A1C Date Value Ref Range Status 04/22/2024 5.5 4.3 - 5.6 % Final Comment: [employer] guidelines indicate that patients with [...] 03/21/2018 Added automatically from request for surgery [id number] Elevated blood sugar 04/19/2022 Essential hypertension 01/22/2007 03/11/2019: Home BP Cuff Validated. 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 [facility] CNPMary 08-18-2024 CNPN Telephone (PODIWS) -------- ANDREW PERAZA MD ([id number]) 1940 M Date Time Provider Department 08/18/24 [...] nurse could give him a call back. [phone]. Mary Rand LPN 08/18/2024 9:31 AM Signed Called and spoke with patient. Patient is scheduled for Sunday08/20/2024 at 9:15 in [place]. Mary Rand LPN Allergies As of Date: [...] visit, subsequent [Z00*04/18/2021 Living will on file [[id number]] 04/18/2021 DDD (degenerative disc disease), cervical [M50.*04/18/2021 Aortic root dilatation (HCC) [I77.810] 04/18/2021 Medication management [Z79.899] (more content not included)... [facility] CNOVon 08-04-2024 CNOV Office Visit (ORTHWS ) -------- ANDREW PERAZA MD ([id number]) 1940 M Date Time Provider Department 08/04/24 [...] these instructions. Informed Consent Consent Obtained: Verbal Conover Protocol A moment to CARE was completed. [...] hospitalized patients) applicable. Referring Provider: ROMEL QUEEN [[id number]] Allergies As of Date: 08/04/2024 Noted Allergy [...] [M18.11] Order(s):Small Joint Arthro/Inj: R thumb CMC [[id number]] Order #: [id number] [] betamethasone acetate-betamethasone sodium phosphate 3 mg [...] skin c (more content not included)... [facility] Small Joint Arthro/Inj: R th umb [...] these instructions. Informed Consent Consent Obtained: Verbal Conover Protocol A moment to CARE was completed. [...] the bedside nurse for hospitalized patients) applicable. [facility] CNOVon 07-14-2024 CNOV Office Visit (PODIWS ) -------- ANDREW PERAZA MD ([id number]) 1940 M Date Time Provider Department 07/14/24 [...] Apolinar Blevins DPM Referring Provider: APOLINAR BLEVINS [[id number]] Allergies As of Date: 07/14/2024 Noted Allergy [...] bowel syndrom (more content not included)... [facility] CNOV Office Visit (ORTHWS ) -------- ANDREW PERAZA MD ([id number]) 1940 M Date Time Provider Department 07/14/24 [...] PA-C Department of Orthopaedics Orthopaedics [address] [facility] [address] Dept: [phone] Dept July 14, 2024 CHIEF COMPLAINT: Established [...] Bianka's test. Imaging: IMPRESSION: Osteoarthritis as described. Director Clinical Information Services: PAUL Transcribe Date/Time: Apr 30 2024 8:21P [...] Past Surgical (more content not included)... [facility] CNTHERAPYon 06-11-2024 CNTHERAPY OT/PT/Speech Visit (PTWS) -------- ANDREW PERAZA MD ([id number]) 1940 M Date Time Provider Department 06/11/24 9:15 AM TERESO BALBUENA PTWS Date Time Provider Department Center 06/11/2024 9:15 AM [id number], COLIN PTWS [place] Reason for Visit: [...] mouth once daily. Take one tablet daily Seam Hammerer: Therapy (PT/OT/Speech/Resp) ID: [id number] 06/11/2024 9:49 AM Author: TERESO BALBUENA Signed by TERESO BALBUENA PT on 06/11/2024 at 9:49 AM Document text: Program_ID:[id number] Access Code: [email or web address] URL: [email or web address]. [employer]/ Date: 06-11-2024 Prepared By: Tereso Balbuena Program [...] - 2-3 sets - 10-15 reps [facility] THERAPY NTon 06-11-2024 THERAPY NT HNO ID: [id number] Author: TERESO BALBUENA PT Service: ? Author Type: Physical Therapist Type: Therapy (PT/OT/Speech/Resp) Filed: 06/11/2024 09:49 Note Text: Program_ID:[id number] Access Code: [email or web address] URL: [email or web address]. [employer]/ Date: 06-11-2024 Prepared By: Tereso Balbuena Program [...] - 2-3 sets - 10-15 reps [facility] CNTHERAPYon 06-09-2024 CNTHERAPY OT/PT/Speech Visit (PTWS) -------- ANDREW PERAZA MD ([id number]) 1940 M Date Time Provider Department 06/09/24 9:30 AM IRENE TODD Date Time Provider Department Center 06/09/2024 9:30 AM [id number] Reason for Visit: Physical Therapy [503] Primary [...] once daily. Take one tablet daily [facility] CNTHERAPYon 05-29-2024 CNTHERAPY OT/PT/Speech Visit (PTWS) -------- ANDREW PERAZA MD ([id number]) 1940 M Date Time Provider Department 05/29/24 10:45 AM TERESO BALBUENA PTBUD Date Time Provider Department Center 05/29/2024 10:45 AM [id number], COLIN PTBUD [place] Reason for Visit: Physical [...] mouth once daily. Take one tablet daily Seam Hammerer: Therapy (PT/OT/Speech/Resp) ID: [id number] 05/29/2024 11:24 AM Author: TERESO BALBUENA Signed by TERESO BALBUENA PT on 05/29/2024 at 11:24 AM Document text: Program_ID:[id number] Access Code: [email or web address] URL: [email or web address] [employer]/ Date: 05-29-2024 Prepared By: Tereso Balbuena Program [...] - 2 sets - 10 reps [facility] THERAPY NTon 05-29-2024 THERAPY NT HNO ID: [id number] Author: TERESO BALBUENA PT Service: ? Author Type: Physical Therapist Type: Therapy (PT/OT/Speech/Resp) Filed: 05/29/2024 11:24 Note Text: Program_ID:[id number] Access Code: [email or web address] URL: [email or web address]. [employer]/ Date: 05-29-2024 Prepared By: Tereso Balbuena Program [...] - 2 sets - 10 reps [facility] CNTHERAPYon 05-27-2024 CNTHERAPY OT/PT/Speech Visit (PTWS) -------- ANDREW PERAZA MD ([id number]) 1940 M Date Time Provider Department 05/27/24 9:30 AM IRENE TODD PTWS Date Time Provider Department [place] 05/27/2024 9:30 AM [id number], MARIAH PTWS [place] Reason for Visit: [...] once daily. Take one tablet daily [facility] CNTHERAPYon 05-22-2024 CNTHERAPY OT/PT/Speech Visit (PTWS) -------- ANDREW PERAZA MD ([id number]) 1940 M Date Time Provider Department 05/22/24 10:45 AM TERESO BALBUENA PTWS Date Time Provider Department [place] 05/22/2024 10:45 AM [id number], COLIN PTWS Nii [place] Reason for Visit: [...] once daily. Take one tablet daily [facility] CNTHERAPYon 05-20-2024 CNTHERAPY OT/PT/Speech Visit (PTWS) -------- ANDREW PERAZA MD ([id number]) 1940 M Date Time Provider Department 05/20/24 8:45 AM IRENE TODD PTWS Date Time Provider Department Center 05/20/2024 8:45 AM [id number], MARIAH PTWS Nii [place] Reason for Visit: [...] once daily. Take one tablet daily [facility] CNTHERAPYon 05-14-2024 CNTHERAPY OT/PT/Speech Visit (PTWS) -------- ANDREW PERAZA MD ([id number]) 1940 M Date Time Provider Department 05/14/24 11:30 AM TERESO BALBUENA PTWS Date Time Provider Department Center 05/14/2024 11:30 AM [id number], COLIN PTWS [place] Reason for Visit: [...] once daily. Take one tablet daily [facility] CNTHERAPYon 05-07-2024 CNTHERAPY OT/PT/Speech Visit (PTWS) -------- ANDREW PERAZA MD ([id number]) 1940 M Date Time Provider Department 05/07/24 7:45 AM TERESO BALBUENA PTWS Date Time Provider Department Center 05/07/2024 7:45 AM [id number], COLIN PTWS [place] Reason for Visit: [...] once daily. Take one tablet daily [facility] [id number] 05-05-2024 [id number] HNO ID: [id number] Author: TERESO BALBUENA PT Service: ? 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 [place] in home exercise program. Patient will Improve [...] Planned: 8 Planned Treatment Interventions: Therapeutic exercise (98476), Neuromuscular re-education (37347), Manual therapy (23984), Therapeutic activities (96120), Self-assisted management (55425), Patient/Family/Caregiver Education, Gait Training (50010) PLAN FOR NEXT VISIT: Challenge Balance; Dynamic Balance Activities. Patient demonstrates good understanding of plan of care and treatment. The above goals and plan of care were discussed and agreed upon by patient/family. For further details regarding this patient refer to the Physical Therapy electronically documented visit dated 05/05/2024. 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 Signature certifies the need for therapy services. [facility] CNTHERAPYon 05-05-2024 CNTHERAPY OT/PT/Speech Visit (PTWS) -------- ANDREW PERAZA MD ([id number]) 1940 M Date Time Provider Department 05/05/24 10:00 AM TERESO BALBUENA PTWS Date Time Provider Department Center 05/05/2024 10:00 AM [id number], COLIN PTWS [place] Reason for Visit: [...] mouth once daily. Take one tablet daily Seam Hammerer: Therapy (PT/OT/Speech/Resp) ID: [id number] 05/05/2024 10:39 AM Author: TERESO BALBUENA Signed by TERESO BALBUENA PT on 05/05/2024 at 10:39 AM Document text: Program_ID:[id number] Access Code: [email or web address] URL: [email or web address]/ Date: 05-05-2024 Prepared By: Tereso Balbuena Program [...] weekly - 2 sets - reps [facility] THERAPY NTon 05-05-2024 THERAPY NT HNO ID: [id number] Author: TERESO BALBUENA, PT Service: ? Author Type: Physical Therapist Type: Therapy (PT/OT/Speech/Resp) Filed: 05/05/2024 10:39 Note Text: Program_ID:[id number] Access Code: [email or web address] URL: [email or web address]://[email or web address]/ Date: 05-05-2024 Prepared By: Tereso Balbuena Program [...] weekly - 2 sets - reps [facility] CNOVon 04-28-2024 CNOV Office Visit (ORTHWS ) -------- ANDREW PERAZA MD ([id number]) 1940 M Date Time Provider Department 04/28/24 [...] his right thumb. 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 States his hand writing has gotten worse. Patient is right hand dominant. Tried Ibuprofen and Tylenol for the pain and does not help. X-rays done today. Trna Young PA-C 05/09/2024 9:03 AM Addendum Tran Young PA-C Department of Orthopaedics Orthopaedics [address] [facility] [address] Dept: [phone] Dept April 28, 2024 CHIEF COMPLAINT: New [...] these instructions. Informed Consent Consent Obtained: Verbal Conover Protocol A moment to CARE was completed. [...] specimen alex (more content not included)... [facility] Small Joint Arthro/Inj: R th umb [...] these instructions. Informed Consent Consent Obtained: Verbal Conover Protocol A moment to CARE was completed. [...] Plan of Care Visit completed when applicable [facility] XR HAND 3V PA/LAT/OBL RTon 0 04-28-2024 [...] No osseous erosion. IMPRESSION: Osteoarthritis as described. Director Clinical Information Services: PAUL Transcribe Date/Time: Apr 30 2024 8:21P Dictated by : YUNIER PAT MD This examination was interpreted and the report reviewed and electronically signed by: YUNIER PAT MD on Apr 30 2024 8:21PM EST [id number] [facility] CBC W Auto Differential pane l (Bld)on 04-22-2024 Basophils (Bld) [#/Vol] 0.03 10*3/uL Normal <0.11 [facility] Comment on above: Order Comment: Speci men Type: BLOOD SPECIMENOrdering Facility: [facility] Address: [address] [place] [address] Performed By: #### 5 7021-8 ####[facility] LABCLIA [id number] [place] [address] [place] Basophils/100 WBC (Bld) 0.5 % [facility] Comment on above: Order Comment: Speci men Type: BLOOD SPECIMENOrdering Facility: [facility] Address: [address] [place] [address] Performed By: #### 5 7021-8 ####[facility] LABCLIA [id number] [place] [address] [place] Differential cell count method Nom (Bld) Auto [facility] Comment on above: Order Comment: Speci men Type: BLOOD SPECIMENOrdering Facility: [facility] Address: [address] [place] [address] Performed By: #### 5 7021-8 ####[facility] LABCLIA [id number] [place] [address] [place] Eosinophils (Bld) [#/Vol] 0.16 10*3/uL Normal <0.46 [facility] Comment on above: Order Comment: Speci men Type: BLOOD SPECIMENOrdering Facility: [facility] Address: [address] [place] [address] Performed By: #### 5 7021-8 ####[facility] LABIA [id number] [place] [address] [place] Eosinophils/100 WBC (Bld) 2.7 % [facility] Comment on above: Order Comment: Speci men Type: BLOOD SPECIMENOrdering Facility: [facility] Address: [address] [place] [address] Performed By: #### 5 7021-8 ####[facility] LABIA [id number] [place] [address] [place] Erythrocyte distribution width (RBC) [Ratio] 12.5 % Normal 11.5-15.0 [facility] Comment on above: Order Comment: Speci men Type: BLOOD SPECIMENOrdering Facility: [facility] Address: [address] [place] [address] Performed By: #### 5 7021-8 ####[facility] LABCLIA [id number] [place] [address] [place] Hematocrit (Bld) [Volume fraction] 49.8 % Normal 39.0-51.0 [facility] Comment on above: Order Comment: Speci men Type: BLOOD SPECIMENOrdering Facility: [facility] Address: [address] [place] [address] Performed By: #### 5 7021-8 ####[facility] LABIA [id number] [place] [address] [place] Hemoglobin (Bld) [Mass/Vol] 16.1 g/dL Normal 13.0-17.0 [facility] Comment on above: Order Comment: Speci men Type: BLOOD SPECIMENOrdering Facility: [facility] Address: [address] [place] [address] Performed By: #### 5 7021-8 ####[facility] LABIA [id number] [place] [address] [place] Immature granulocytes (Bld) [#/Vol] 10*3/uL Normal <0.10 [facility] Comment on above: Order Comment: Speci men Type: BLOOD SPECIMENOrdering Facility: [facility] Address: [address] [place] [address] Performed By: #### 5 7021-8 ####[facility] LABIA [id number] [place] [address] [place] Immature granulocytes/100 WBC (Bld) 0.2 % [facility] Comment on above: Order Comment: Speci men Type: BLOOD SPECIMENOrdering Facility: [facility] Address: [address] [place] [address] Performed By: #### 5 7021-8 ####[facility] LABIA [id number] [place] [address] [place] Lymphocytes (Bld) [#/Vol] 1.04 10*3/uL Normal 1.00-4.00 [facility] Comment on above: Order Comment: Speci men Type: BLOOD SPECIMENOrdering Facility: [facility] Address: [address] [place] [address] Performed By: #### 5 7021-8 ####[facility] LABIA [id number] [place] [address] [place] Lymphocytes/100 WBC (Bld) 17.4 % [facility] Comment on above: Order Comment: Speci men Type: BLOOD SPECIMENOrdering Facility: [facility] Address: [address] [place] [address] Performed By: #### 5 7021-8 ####[facility] LABIA [id number] [place] [address] [place] MCH (RBC) [Entitic mass] 31.8 pg Normal 26.0-34.0 [facility] Comment on above: Order Comment: Speci men Type: BLOOD SPECIMENOrdering Facility: [facility] Address: [address] [place] [address] Performed By: #### 5 7021-8 ####[facility] LABIA [id number] [place] [address] [place] MCHC (RBC) [Mass/Vol] 32.3 g/dL Normal 30.5-36.0 [facility] Comment on above: Order Comment: Speci men Type: BLOOD SPECIMENOrdering Facility: [facility] Address: [address] [place] [address] Performed By: #### 5 7021-8 ####[facility] LABIA [id number] [place] [address] [place] MCV (RBC) [Entitic vol] 98.4 fL Normal 80.0-100.0 [facility] Comment on above: Order Comment: Speci men Type: BLOOD SPECIMENOrdering Facility: [facility] Address: [address] [place] [address] Performed By: #### 5 7021-8 ####[facility] LABIA [id number] [place] [address] [place] Monocytes (Bld) [#/Vol] 0.68 10*3/uL Normal <0.87 [facility] Comment on above: Order Comment: Speci men Type: BLOOD SPECIMENOrdering Facility: [facility] Address: [address] [place] [address] Performed By: #### 5 7021-8 ####[facility] LABCLIA [id number] [place] [address] [place] Monocytes/100 WBC (Bld) 11.4 % Normal [facility] Comment on above: Order Comment: Speci men Type: BLOOD SPECIMENOrdering Facility: [facility] Address: [address] [place] [address] Performed By: #### 5 7021-8 ####[facility] LABCLIA [id number] [place] [address] [place] Neutrophils (Bld) [#/Vol] 4.05 10*3/uL Normal 1.45-7.50 [facility] Comment on above: Order Comment: Speci men Type: BLOOD SPECIMENOrdering Facility: [facility] Address: [address] [place] [address] Performed By: #### 5 7021-8 ####[facility] LABCLIA [id number] [place] [address] [place] Neutrophils/100 WBC (Bld) 67.8 % Normal [facility] Comment on above: Order Comment: Speci men Type: BLOOD SPECIMENOrdering Facility: [facility] Address: [address] [place] [address] Performed By: #### 5 7021-8 ####[facility] LABCLIA [id number] [place] [address] [place] Nucleated RBC (Bld) [#/Vol] 10*3/uL Normal <0.01 [facility] Comment on above: Order Comment: Speci men Type: BLOOD SPECIMENOrdering Facility: [facility] Address: [address] [place] [address] Performed By: #### 5 7021-8 ####[facility] LABCLIA [id number] [place] [address] [place] Nucleated RBC/100 WBC (Bld) [Ratio] 0.0 /100 WBC Normal [facility] Comment on above: Order Comment: Speci men Type: BLOOD SPECIMENOrdering Facility: [facility] Address: [address] [place] [address] Performed By: #### 5 7021-8 ####[facility] LABIA [id number] [place] [address] [place] Platelet mean volume (Bld) [Entitic vol] 10.6 fL Normal 9.0-12.7 [facility] Comment on above: Order Comment: Speci men Type: BLOOD SPECIMENOrdering Facility: [facility] Address: [address] [place] [address] Performed By: #### 5 7021-8 ####[facility] LABIA [id number] [place] [address] [place] Platelets (Bld) [#/Vol] 215 10*3/uL Normal 150-400 [facility] Comment on above: Order Comment: Speci men Type: BLOOD SPECIMENOrdering Facility: [facility] Address: [address] [place] [address] Performed By: #### 5 7021-8 ####[facility] LABCLIA [id number] [place] [address] [place] RBC (Bld) [#/Vol] 5.06 10*6/uL Normal 4.20-6.00 [facility] Comment on above: Order Comment: Speci men Type: BLOOD SPECIMENOrdering Facility: [facility] Address: [address] [place] [address] Performed By: #### 5 7021-8 ####[facility] LABCLIA [id number] [place] [id number] [place] WBC (Bld) [#/Vol] 5.97 10*3/uL Normal 3.70-11.00 [facility] Comment on above: Order Comment: Speci men Type: BLOOD SPECIMENOrdering Facility: [facility] Address: [address] [place] [address] Performed By: #### 5 7021-8 ####[facility] LABCLIA [id number] [place] [id number] [place] CNOVon 04-22-2024 CNOV Office Visit (FAMPWS ) -------- ANDREW PERAZA MD ([id number]) 1940 M Date Time Provider Department 04/22/24 [...] General (Family Medicine) Jennifer Kumar APRN.SANKET as Steward/Stewardess Second Class (Family Medicine) Ally De PA-C as Steward/Stewardess Second Class (Family Medicine) Sebas: Urology optho Medical/Family history [...] 03/21/2018 Added automatically from request for surgery [id number] Elevated blood sugar 04/19/2022 Essential hypertension 01/22/2007 03/11/2019: Home BP Cuff Validated. Home BP: 118/58 Office BP: 128/72 GERD without esophagitis 03/21/2018 Added automatically from request for surgery [id number] H/O BCC skin cancer: other malignant neoplasm of skin 06/21/2010 History of colonic polyps 03/21/2018 Added automatically from request for surgery [id number] History of transfusion Impotence of organic origin [...] mid transverse (more content not included)... Normal [facility] Comprehensive metabolic 2000 panelon 04-22-2024 Albumin [Mass/Vol] 4.5 g/dL Normal 3.9-4.9 [facility] Comment on above: Order Comment: Speci men Type: BLOOD SPECIMENOrdering Facility: [facility] Address: [address] [place] [address] Performed By: #### 1 9123-9, LIPNF, 57323-6, 2132-9 ####[facility] LABCLIA [id number] [place] [address] [place] ALP [Catalytic activity/Vol] 64 U/L Normal 38-113 [facility] Comment on above: Order Comment: Speci men Type: BLOOD SPECIMENOrdering Facility: [facility] Address: [address] [place] [address] Performed By: #### 1 9123-9, LIPNF, , 2131-11 ####[facility] LABCLIA [id number] [place] [address] [place] ALT [Catalytic activity/Vol] 20 U/L Normal 10-54 [facility] Comment on above: Order Comment: Speci men Type: BLOOD SPECIMENOrdering Facility: [facility] Address: [address] [place] [address] Performed By: #### 1 9123-9, LIPNF, , 2131-11 ####[facility] LABCLIA [id number] [place] [address] [place] Anion gap [Moles/Vol] 12 mmol/L Normal 8-15 [facility] Comment on above: Order Comment: Speci men Type: BLOOD SPECIMENOrdering Facility: [facility] Address: [address] [place] [address] Performed By: #### 1 9123-9, LIPNF, , 2131-11 ####[facility] LABCLIA [id number] [place] [address] [place] AST [Catalytic activity/Vol] 20 U/L Normal 14-40 [facility] Comment on above: Order Comment: Speci men Type: BLOOD SPECIMENOrdering Facility: [facility] Address: [address] [place] [address] Performed By: #### 1 9123-9, LIPNF, , 2131-11 ####[facility] LABCLIA [id number] [place] [address] [place] Bilirubin [Mass/Vol] 0.6 mg/dL Normal 0.2-1.3 [facility] Comment on above: Order Comment: Speci men Type: BLOOD SPECIMENOrdering Facility: [facility] Address: [address] [place] [id number] Performed By: #### 1 9123-9, LIPNF, , 2131-11 ####[facility] LABCLIA [id number] [address] [address] [place] Calcium [Mass/Vol] 9.8 mg/dL Normal 8.5-10.2 [facility] Comment on above: Order Comment: Speci men Type: BLOOD SPECIMENOrdering Facility: [facility] Address: [address] [place] [address] Performed By: #### 1 9123-9, LIPNF, , 2131-11 ####[facility] LABCLIA [id number] [place] [address] [place] Chloride [Moles/Vol] 102 mmol/L Normal 98-107 [facility] Comment on above: Order Comment: Speci men Type: BLOOD SPECIMENOrdering Facility: [facility] Address: [address] [place] [address] Performed By: #### 1 91239, LIPNF, , 2131-11 ####[facility] LABCLIA [id number] [place] [address] [place] CO2 [Moles/Vol] 26 mmol/L Normal 22-30 [facility] Comment on above: Order Comment: Speci men Type: BLOOD SPECIMENOrdering Facility: [facility] Address: [address] [place] [id number] Performed By: #### 1 9123-9, LIPNF, , 2131-11 ####[facility] LABCLIA [id number] [place] [id number] [place] Creatinine [Mass/Vol] 0.92 mg/dL Normal 0.73-1.22 [facility] Comment on above: Order Comment: Speci men Type: BLOOD SPECIMENOrdering Facility: [facility] Address: [address] [place] [address] Performed By: #### 1 9123-9, LIPNF, , 2131-11 ####[facility] LABIA [id number] [place] [address] [place] Creatinine and Glomerular filtration rate.predicted panel (S/P/Bld) 83 mL/min/1.73m??? Normal >=60 [facility] Comment on above: Order Comment: Santos ijn Type: BLOOD SPECIMENOrdering Facility: [facility] Address: [address] [place] [address] Result Comment: Maryann mated Glomerular Filtration Rate [...] By: #### 1 9123-9, LIPJACE, , 2131-11 ####[facility] LABIA [id number] [place] [address] [place] Glucose [Mass/Vol] 91 mg/dL Normal 74-99 [facility] Comment on above: Order Comment: Santos jin Type: BLOOD SPECIMENOrdering Facility: [facility] Address: [address] [place] [address] Result Comment: The [place] Diabetes Association (ADA) provides guidance for cutoff [...] Standards of Medical Care in Diabetes 2016, [place] [employer]. Diabetes Care. 2016.39(Suppl 1). Performed By: #### 1 9123-9, LIPNF, 09115-1, 2131-11 ####[facility] LABCLIA [id number] [address] [address] [place] Potassium [Moles/Vol] 4.3 mmol/L Normal 3.7-5.1 [facility] Comment on above: Order Comment: Speci men Type: BLOOD SPECIMENOrdering Facility: [facility] Address: [address] [place] [address] Performed By: #### 1 9123-9, LIPNF, 26085-2, 2131-11 ####[facility] LABCLIA [id number] [place] [address] [place] Protein [Mass/Vol] 6.8 g/dL Normal 6.3-8.0 [facility] Comment on above: Order Comment: Speci men Type: BLOOD SPECIMENOrdering Facility: [facility] Address: [address] [place] [address] Performed By: #### 1 9123-9, LIPNF, , 2131-11 ####[facility] LABIA [id number] [place] [address] [place] Sodium [Moles/Vol] 140 mmol/L Normal 136-144 [facility] Comment on above: Order Comment: Speci men Type: BLOOD SPECIMENOrdering Facility: [facility] Address: [address] [place] [address] Performed By: #### 1 9123-9, LIPNF, , 2131-11 ####[facility] LABCLIA [id number] [place] [id number] [place] Urea nitrogen [Mass/Vol] 29 mg/dL High 9-24 [facility] Comment on above: Order Comment: Speci men Type: BLOOD SPECIMENOrdering Facility: [facility] Address: [address] [place] [address] Performed By: #### 1 9123-9, LIPNF, 57739-5, 2131-11 ####[facility] LABCLIA [id number] [address] [place] HbA1c (Bld)on 04-22-2024 Average glucose Estimated from glycated hemoglobin (Bld) [Mass/Vol] 111 mg/dL Normal [facility] Comment on above: Order Comment: Santos jin Type: BLOOD SPECIMENOrdering Facility: [facility] Address: [address] [place] [address] Result Comment: eAG: (Estimated average glucose) is a calculated value from HgbA1c and is business development representative of the average blood glucose level in the last 2-3 month period. Performed By: #### 5 5454-3 ####[facility] LABIA [id number] [address] HbA1c (Bld) [Mass fraction] 5.5 % Normal 4.3-5.6 [facility] Comment on above: Order Comment: Santos jin Type: BLOOD SPECIMENOrdering Facility: [facility] Address: [address] [place] [address] Result Comment: Amer [place] Diabetes Association guidelines indicate that patients with HgbA1c in the range 5.7-6.4% are at increased risk for development of diabetes, and intervention by lifestyle modification may be beneficial. HgbA1c greater or equal to 6.5% is considered diagnostic of diabetes. Performed By: #### 5 5454-3 ####[facility] LABIA [id number] [address] [place] LIPID PANEL, NONFASTINGon Cholesterol [Mass/Vol] 216 mg/dL High <200 [facility] Comment on above: Order Comment: Santos jin Type: BLOOD SPECIMENOrdering Facility: [facility] Address: [address] [place] [address] Result Comment: <200 mg/dL, Desirable 200-239 mg/dL, Borderline high >239 mg/dL, High Performed By: #### 1 9123-9, LIPNF, , 2131-11 ####[facility] LABCLIA [id number] [address] [place] HDL CHOLESTEROL, NF 44 mg/dL Normal >39 [facility] Comment on above: Order Comment: Santos jin Type: BLOOD SPECIMENOrdering Facility: [facility] Address: [address] [place] [address] Result Comment: 40-5 9 mg/dL, Acceptable >59 mg/dL, High: Negative risk factor for coronary heart disease <40 mg/dL, Low: Positive risk factor for coronary heart disease Performed By: #### 1 9123-9, LIPNF, , 2131-11 ####[facility] LABCLIA [id number] [address] STATES OF [facility] LDL CHOLESTEROL, NF 132 mg/dL High <100 [facility] Comment on above: Order Comment: Shantanumarixa jin Type: BLOOD SPECIMENOrdering Facility: [facility] Address: [address] [place] [address] Result Comment: <100 mg/dL, Optimal 100-129 mg/dL, Near optimal/above optimal 130-159 mg/dL, Borderline high 160-189 mg/dL, High >189 mg/dL, Very high Secondary prevention optimal LDL Cholesterol levels are recommended to be < 70 mg/dL Performed By: #### 1 9123-9, LIPNF, , 2131-11 ####[facility] LABCLIA [id number] [address] [place] LDL/HDL RATIO, NF 3.00 mg/dL High <2.54 [facility] Comment on above: Order Comment: Santos jin Type: BLOOD SPECIMENOrdering Facility: [facility] Address: [address] [place] [address] Result Comment: Refe rence: 1. National Cholesterol Education Program ATP III Guideline At-A-Glance Quick Desk Reference: National Heart, Lung, and Blood Causey. National Institutes of Health. 2001: NIH Publication No. 01-3305. 2. An International Atherosclerosis Society position paper: global recommendations for the management of dyslipidemia: executive summary, Atherosclerosis. 2014: 232(2):410-413. Performed By: #### 1 23-9, LIPJACE, , 2131-11 ####[facility] LABCLIA [id number] [place] [address] [place] NON HDL CHOL, NF 172 mg/dL High <130 [facility] Comment on above: Order Comment: Speci men Type: BLOOD SPECIMENOrdering Facility: [facility] Address: [address] [place] [address] Result Comment: <130 mg/dL, Optimal 130-159 mg/dL, Near optimal/above optimal 160-189 mg/dL, Borderline high 190-219 mg/dL, High >219 mg/dL, Very high Secondary prevention optimal non HDL Cholesterol levels are recommended to be <100 mg/dL Performed By: #### 1 9123-9, LIPNF, , 2131-11 ####[facility] LABCLIA [id number] [place] [address] [place] T CHOL/HDL RATIO NF 4.91 mg/dL Normal <5.10 [facility] Comment on above: Order Comment: Speci men Type: BLOOD SPECIMENOrdering Facility: [facility] Address: [address] [place] [address] Performed By: #### 1 9123-9, LIPNF, , 2131-11 ####[facility] LABCLIA [id number] [place] [address] [place] TRIGLYCERIDES, NF 202 mg/dL High <150 [facility] Comment on above: Order Comment: Speci men Type: BLOOD SPECIMENOrdering Facility: [facility] Address: [address] [place] [address] Result Comment: <150 mg/dL, Normal 150-199 mg/dL, Borderline high 200-499 mg/dL, High >499 mg/dL, Very high Performed By: #### 1 23-9, LIPNF, , 2131-11 ####[facility] LABCLIA [id number] [place] [address] [place] VLDL CHOLESTEROL, NF 40 mg/dL High <30 [facility] Comment on above: Order Comment: Speci men Type: BLOOD SPECIMENOrdering Facility: [facility] Address: [address] [place] [address] Performed By: #### 1 9123-9, LIPNF, , 2131-11 ####[facility] LABCLIA [id number] [place] [address] [place] Magnesium SerPl-mCncon 04-22 Magnesium [Mass/Vol] 2.1 mg/dL Normal 1.7-2.3 [facility] Comment on above: Order Comment: Speci men Type: BLOOD SPECIMENOrdering Facility: [facility] Address: [address] [place] [address] Performed By: #### 1 239, LIPNF, , 2131-11 ####[facility] LABCLIA [id number] [place] [address] [place] Urinalysis complete panel (U )on 04-22-2024 Bacteria LM.HPF (Urine sed) [#/Area] Negative Normal Negative [facility] Comment on above: Order Comment: Speci men Type: URINE SPECIMENOrdering Facility: [facility] Address: [address] [place] [address] Performed By: #### 2 4356-8 ####[facility] LABCLIA [id number] [place] [address] [place] Bilirubin Ql (U) Negative Normal Negative [facility] Comment on above: Order Comment: Speci men Type: URINE SPECIMENOrdering Facility: [facility] Address: [address] [place] [address] Performed By: #### 2 4356-8 ####[facility] LABCLIA [id number] [place] [address] [place] Clarity (Unsp spec) Clear Normal Clear [facility] Comment on above: Order Comment: Speci men Type: URINE SPECIMENOrdering Facility: [facility] Address: [address] [place] [address] Performed By: #### 2 4356-8 ####[facility] LABCLIA [id number] [place] [address] [place] Color (U) Yellow Normal Yellow [facility] Comment on above: Order Comment: Speci men Type: URINE SPECIMENOrdering Facility: [facility] Address: [address] [place] [address] Performed By: #### 2 4356-8 ####[facility] LABCLIA [id number] [place] [address] [place] Epithelial cells LM.HPF (Urine sed) [#/Area] None Seen Normal [facility] Comment on above: Order Comment: Speci men Type: URINE SPECIMENOrdering Facility: [facility] Address: [address] [place] [address] Performed By: #### 2 4356-8 ####[facility] LABCLIA [id number] [place] [address] [place] Glucose Test strip (U) [Mass/Vol] Negative Normal Negative [facility] Comment on above: Order Comment: Speci men Type: URINE SPECIMENOrdering Facility: [facility] Address: [address] [place] [address] Performed By: #### 2 4356-8 ####[facility] LABCLIA [id number] [place] [address] [place] Hemoglobin Ql (U) Negative Normal Negative [facility] Comment on above: Order Comment: Speci men Type: URINE SPECIMENOrdering Facility: [facility] Address: [address] [place] [address] Performed By: #### 2 4356-8 ####[facility] LABCLIA [id number] [place] [address] [place] Hyaline casts (Urine sed) [#/Area] 0 /[LPF] Normal 0 /LPF [facility] Comment on above: Order Comment: Speci men Type: URINE SPECIMENOrdering Facility: [facility] Address: [address] [place] [address] Performed By: #### 2 4356-8 ####[facility] LABCLIA [id number] [place] [address] [place] Ketones Ql (U) Trace Abnormal Negative [facility] Comment on above: Order Comment: Speci men Type: URINE SPECIMENOrdering Facility: [facility] Address: [address] [place] [address] Performed By: #### 2 4356-8 ####[facility] LABCLIA [id number] [place] [address] [place] Leukocyte esterase Test strip Ql (U) Negative Normal Negative [facility] Comment on above: Order Comment: Speci men Type: URINE SPECIMENOrdering Facility: [facility] Address: [address] [place] [address] Performed By: #### 2 4356-8 ####[facility] LABCLIA [id number] [place] [address] [place] Nitrite Ql (U) Negative Normal Negative [facility] Comment on above: Order Comment: Speci men Type: URINE SPECIMENOrdering Facility: [facility] Address: [address] [place] [address] Performed By: #### 2 4356-8 ####[facility] LABCLIA [id number] [place] [address] [place] pH (U) 6.0 [pH] Normal <8.5 [facility] Comment on above: Order Comment: Speci men Type: URINE SPECIMENOrdering Facility: [facility] Address: [address] [place] [address] Performed By: #### 2 4356-8 ####[facility] LABIA [id number] [place] [address] [place] Protein (U) [Mass/Vol] Trace Abnormal Negative [facility] Comment on above: Order Comment: Speci men Type: URINE SPECIMENOrdering Facility: [facility] Address: [address] [place] [address] Performed By: #### 2 4356-8 ####[facility] LABIA [id number] [place] [address] [place] RBC LM.HPF (Urine sed) [#/Area] 0-2 /HPF Normal 0-2 /HPF [facility] Comment on above: Order Comment: Speci men Type: URINE SPECIMENOrdering Facility: [facility] Address: [address] [place] [address] Performed By: #### 2 4356-8 ####[facility] LABIA [id number] [place] [address] [place] Specific gravity (U) [Rel density] 1.030 Normal 1.005-1.030 [facility] Comment on above: Order Comment: Speci men Type: URINE SPECIMENOrdering Facility: [facility] Address: [address] [place] [address] Performed By: #### 2 4356-8 ####[facility] LABIA [id number] [place] [address] [place] Urobilinogen Ql (U) 1.0 EU/dL Normal 0.2-1.0 EU/dL [facility] Comment on above: Order Comment: Speci men Type: URINE SPECIMENOrdering Facility: [facility] Address: [address] [place] [address] Performed By: #### 2 4356-8 ####[facility] LABIA [id number] [place] [address] [place] WBC LM.HPF (Urine sed) [#/Area] 0-5 /HPF Normal 0-5 /HPF [facility] Comment on above: Order Comment: Speci men Type: URINE SPECIMENOrdering Facility: [facility] Address: [address] [place] [address] Performed By: #### 2 4356-8 ####[facility] LABCLIA [id number] [place] [address] [place] Vit B12 SerPl-ncon 18-2 025 Cobalamin (Vitamin B12) [Mass/Vol] 778 pg/mL Normal 232-1245 [facility] Comment on above: Order Comment: Speci men Type: BLOOD SPECIMENOrdering Facility: [facility] Address: [address] [place] [address] Performed By: #### 1 9123-9, LIPNF, 87521-3, 2132-9 ####[facility] LABCLIA [id number] [place] [address] [place] CNOVon 04-15-2024 CNOV Office Visit (PODIWS ) -------- ANDREW PERAZA MD ([id number]) 1940 M Date Time Provider Department 04/15/24 [...] knee [M17.11] 09/06/2016more content not included)... Normal [facility] CNOVon 01-14-2024 CNOV Office Visit (PODIWS ) -------- ANDREW PERAZA MD ([id number]) 1940 M Date Time Provider Department 01/14/24 9:15 AM APOLINAR BLEVINS PODIWS During your visit today, we recorded the following information about you: Mary Rand LPN 01/14/2024 9:51 AM Signed AMB [...] Objective: Patient presents to clinic ambulating in [facility] Vasc: DP and PT pulses are palpable [...] Apolinar Blevins DPM Referring Provider: APOLINAR BLEVINS [[id number]] Allergies As of Date: 01/14/2024 Noted Allergy [...] Hip bur (more content not included)... Normal [facility] UA DIP, URINE (POC)on 2023 BILIRUBIN UA (POCT) Negative Negative [facility] CLARITY UA (POCT) Slightly Cloudy Cl [facility] COLOR UA (POCT) Dark yellow [facility] GLUCOSE UA (POCT) Negative Negative mg/dL [facility] Hemoglobin Ql (U) Negative Negative [facility] KETONE UA (POCT) Negative Negative mg/dL [facility] LEUKOCYTES UA (POCT) Negative Negative [facility] NITRITE UA (POCT) Negative Negative [facility] PH UA (POCT) 7.5 4.5 - 8.0 [facility] Protein Ql (U) Negative Negative mg/dL [facility] SPECIFIC GRAVITY UA (POCT) 1.020 1.005 - 1.030 [facility] UROBILINOGEN UA (POCT) 0.2 Normal E.U./dL [facility] Location:[facility] [address], [place], [place], [id number] [place] [address] POINT OF CARE [facility] PROGRESSon 11-04-2019 PROGRESS HNO ID: [id number] Author: Anna Mann Service: ? Author Type: Occupational Therapist Type: Progress Notes Filed: 11/04/2019 8:40 AM Note Text: 11/04/2019 REHABILITATION AND SPORTS THERAPY OCCUPATIONAL THERAPY DISCONTINUANCE OF CARE Plan of Care Period: Start of Care Date: 05/27/19 Last Visit Date: 06/24/2019 Therapy Program: The following is a summary of the interventions provided for this episode of care; Therapeutic exercise and Self-assisted management Assessment: Based on most recent visit, [...] scheduled additional follow-up appointments. Anna Mann, OT/LCHT [facility] Re-Evalution OT 10-29-2019 Re-Evalution OT [facility] Occupational Therapy [facility] [address] [place] [address] / REEVALUATION / MEDICARE RECERTIFICATION OCCUPATIONAL THERAPY MR#: [id number] Acct: [id number] Name: ANDREW PERAZA DR Rep #: [id number] : 1940 79 From: Maria E Caal OTR/Margaret, T Referring : Status: REG RCR Insurance: MEDICARE PART A B Eval Date: [facility] TRAN YOUNG, It has been my pleasure [...] provide support for pinch tasks -. right clay grinder strength 30#. right lateral pinch 8#. right [...] pt will demo a increase in right clay grinder strength by 10# or greater to return [...] do not hesitate to contact me at [phone] by phone or if you have questions or concerns regarding this new plan of care! Sincerely, LINK Pardo, IVETH 10/29/19 1103 CC: Dr. Ronal Masterson III, MD; TRAN YOUNG ANDRE Signed For Medicare only, by signing this I certify the plan of care. ____ Physicians Signature Date Normal [facility] OT General Evaluationon 09-04 OT General Evaluation [facility] Occupational Therapy [address] [place] [address] / REHABILITATION SERVICES INITIAL EVALUATION MR#: [id number] Acct: [id number] Name: ANDREW PERAZA DR Rep #: [id number] : 1940 78 From: Maria E MAN/Margaret, IVETH Referring : Status: REG RCR Insurance: MEDICARE PART A B Eval Date: [facility] Patient's Visit Information ANDREW PERAZA is a 78 year old M, referred to Occupational Therapy by TRAN YOUNG, with a diagnosis of right IF [...] demo a deviation of PIP - Strength Raw Stock Machine Feeder: right 35# left 50# Lateral Pinch: right [...] pt will demo a increase in right clay grinder strength by 10# or greater to return [...] to be FAXED BACK to us at [phone] for Medicare purposes. Please let me know if there are questions or concerns regarding this plan of care. Physician Signature: Date: ____ 10/03/19 1229 CC: Dr. Ronal Masterson III, MD; TRAN YOUNG ANDRE Signed For Medicare only, by signing this I certify the plan of care. ____ Physicians Signature Date [facility] CNCOon 06-24-2019 CNCO Letter Text [facility] CNTHERAPYon 06-24-2019 CNTHERAPY OT/PT/Speech Visit ([facility]) -------- ANDREW PERAZA MD ([id number]) 1940 M Date Time Provider Department 06/24/19 11:00 AM ANNA MANN (OT) [facility] Date Time Provider Department Center 06/24/2019 11:00 AM [id number] MANN [facility] Reason for Visit: Occupational [...] Hand Right Hand AROM: Index Finger Strength: Raw Stock Machine Feeder Position 2;Pinch Meter Hand Strength R Raw Stock Machine Feeder Position 2 (lbs): 18 lbs L Raw Stock Machine Feeder Position 2 (lbs): 40 lbs R Lateral [...] gliding and blocking 3: with soft sponge clay grinder and digit flexion 4: with soft putty clay grinder digit extension roll digit flexion and ext abduction into [id number] putty 5: adduction with soft putty and [...] patient on additions Billing: Kee: Therapeutic Exercise (34076): 1:1 time:45 minutes (3 units: 38-52 mins) [...] this episode of care; Therapeutic exercise and Self-assisted management Assessment: Based on most recent visit, [...] by Anna Mann on 06/24/2019 11:34 AM [facility] PROGRESSon 06-24-2019 PROGRESS HNO ID: [id number] Author: Anna Mnan Service: ? Author Type: Occupational Therapist Type: [...] Hand Right Hand AROM: Index Finger Strength: Raw Stock Machine Feeder Position 2;Pinch Meter Hand Strength R Raw Stock Machine Feeder Position 2 (lbs): 18 lbs L Raw Stock Machine Feeder Position 2 (lbs): 40 lbs R Lateral [...] gliding and blocking 3: with soft sponge clay grinder and digit flexion 4: with soft putty clay grinder digit extension roll digit flexion and ext abduction into [id number] putty 5: adduction with soft putty and [...] Reviewed and educated patient on additions Billing: [place]: Therapeutic Exercise (92601): 1:1 time:45 minutes (3 units: 38-52 mins) Total time / Length of visit: 45 minutes [facility] 06-10-2019 CNTHERAPY OT/PT/Speech Visit ([facility]) -------- ANDREW PERAZA MD ([id number]) 1940 M Date Time Provider Department 06/10/19 11:00 AM ANNA MANN (OT) [facility] Date Time Provider Department Center 06/10/2019 11:00 AM [id number] MANN [facility] Reason for Visit: Occupational Therapy [504] Primary [...] of appropriate interventions. Billing: Kee: Therapeutic Exercise (53419): 1:1 time:45 minutes (3 units: 38-52 mins) Total time: 45 minutes Anna Mann OT/NALLELY -------- [facility] PROGRESSon 06-10-2019 PROGRESS HNO ID: [id number] Author: Anna Mann Service: ? Author Type: [...] of appropriate interventions. Billing: [place]ho[place]: Therapeutic Exercise (59698): 1:1 time:45 minutes (3 units: 38-52 mins) Total time: 45 minutes [facility] CN[facility] 05-27-2019 CNTHERAPY OT/PT/Speech Visit (OTC) -------- ANDREW PERAZA MD ([id number]) 1940 M Date Time Provider Department 05/27/19 8:45 AM [facility] Provider Department Center 05/27/2019 8:45 AM [id number] MANN [facility] Reason for Visit: OT EVAL [748] Visit [...] by Name and Date of : Yes [facility] REHABILITATION AND SPORTS THERAPY OCCUPATIONAL THERAPY EVALUATION [...] Planned Treatment Interventions: Custom orthosis fabrication;Therapeutic exercise;Manual therapy;Self-assisted management;ModalitiesFlu idotherapy PLAN FOR NEXT VISIT: scar [...] program to facilitate proper performance and compliance. Self-Fci Management: 1: instructed in activity modification and [...] in care of orthosis and wearing schedule multimedia specialist except when exercising / bathing. . Skilled Intervention: Clinical knowledge and skills required for custom orthotic fabrication and wearing schedule Billing: [place]: Evaluation - Moderate Complexity (37481) Self Care / Home Management (55573): 1:1 time:10 minutes (1 unit: 8-22 mins) Therapeutic Exercise (42835): 1:1 time:10 minutes (1 unit: 8-22 mins) Custom hand splint Total time: 55 minutes Anna Mann OT/NALLELY -------- Annotated image of OT HAND TENDON GLIDING FINGER EX'S last updated by Anna Mann on 05/27/2019 9:29 AM Normal [facility] PROGRESSon 05-27-2019 PROGRESS HNO ID: [id number] Author: Anna (Ot) Pilo Service: ? Author Type: Occupational Therapist Type: Progress Notes Filed: 05/27/2019 10:55 AM Note Text: Episode Visit Count: 1 Therapist That Will Oversee The Plan Of Care: Pilo Castillo Start of Care Date: 05/27/19 Onset Date: 05/18/19 Plan of Care Certification Date: 05/27/19 Patient Identified by Name and Date of : Yes [facility] REHABILITATION AND SPORTS THERAPY OCCUPATIONAL THERAPY EVALUATION [...] Planned Treatment Interventions: Custom orthosis fabrication;Therapeutic exercise;Manual therapy;Self-assisted management;ModalitiesFlu idotherapy PLAN FOR NEXT VISIT: scar [...] program to facilitate proper performance and compliance. Self-Fci Management: 1: instructed in activity modification and [...] in care of orthosis and wearing schedule multimedia specialist except when exercising / bathing. . Skilled Intervention: Clinical knowledge and skills required for custom orthotic fabrication and wearing schedule Billing: [place]: Evaluation - Moderate Complexity (15068) Self Care / Home Management (75004): 1:1 time:10 minutes (1 unit: 8-22 mins) Therapeutic Exercise (33968): 1:1 time:10 minutes (1 unit: 8-22 mins) Custom hand splint Total time: 55 minutes Anna Mann OT/[facility] PROGRESS HNO ID: [id number] Author: Marian WalterCt) EZ Mccauley Service: ? Author Type: Clinical [employer] Type: Progress Notes Filed: 05/27/2019 7:57 AM Note Text: NAME:Andrew Peraza MD DATE: May 27, 2019 CCF#: [id number] Upper Extremity X-Ray(s): Hand, right COMPLETED TECH ID SIGN: MARIAN MCCAULEY [facility] XR HAND 3V PA/LAT/OBL RTon 0 05-27-2019 XR HAND 3V PA/LAT/OBL RT * * *Final Report* * * DATE OF EXAM: May 27 2019 7:56AM MDO 5346 - XR HAND 3V PA/LAT/OBL RT / PROCEDURE REASON: [id number] * * * * Physician Interpretation * [...] joint. IMPRESSION: No acute pathology. Degenerative changes Director Clinical Information Services: PAUL Transcribe Date/Time: May 27 2019 8:03A Dictated by : JENNI ULLOA DO This examination was interpreted and the report reviewed and electronically signed by: JENNI ULLOA DO on May 27 2019 8:05AM EST [id number] [facility] ANES Gael 05-21-2019 ANES POST HNO ID: [id number] Author: Андрей Powell Service: Anesthesiology Author Type: [...] 21, 2019 TIME: 4:16 PM PAGER/CONTACT #: [facility] ANES PREOPon 05-21-2019 ANES PREOP HNO ID: [id number] Author: Андрей Powell Service: Anesthesiology Author Type: [...] Laterality Date - COLONOSCOP W/ OR W/O [facility] SPEC 05/14/14 Colonoscopy - COLONOSCOP W/ OR W/O [facility] SPEC 04/29/2018 Colonoscopy - COLONOSCOPY W/BX 04/29/10 - DESTRUCTION, 1ST LESION 06/19/12 Amputation/cauterization right medial malleolus - EGD - EGD W/O OR W/BRUSH/WASH 04/29/2018 EGD - KNEE ARTHROSCOPY Right 2004 - LAP RETROPUBIC PROSTATECTOMY 1996 - REPAIR ING HERNIA,5+Y/O,REDUCIBL Right 12/08/14 [place] [facility] - SHOULDER ARTHROSCOPY/SURGERY Right 1988 - [...] May 21, 2019 TIME: 10:47 AM CSN: [id number] Normal [facility] HISTORY PHYSICALon 0 HISTORY PHYSICAL HNO ID: [id number] Author: Romel Queen Service: Orthopaedic Surgery Author Type: Physician Type: HANDP Filed: 05/21/2019 11:43 AM Note Text: Tran Young PA-C ? Department of Orthopaedics Orthopaedics [address] [address] Dept: [phone] Dept ? ? May 19, 2019 ? ? CHIEF COMPLAINT: New and Pain of the Right Index Finger ? Patient presents with pain in his right index finger after lifting a bucket filled with stones yesterday. Markle finger snap when he lifted the bucket. [...] right second MCP joint. ?No fracture identified. Director Clinical Information Services: PAUL ? Transcribe Date/Time: May 19 2019 [...] REPAIR ING HERNIA,5+Y/O,REDUCIBL Right 12/08/14 ? [place] [facility] - SHOULDER ARTHROSCOPY/SURGERY Right 1988 - [...] ? SELF ? Ronal Masterson III MD [id number] [id number] ? This note was partially generated using [email or web address] voice recognition system, and there may be some incorrect words, spellings, and punctuation that were not noted in checking the note before saving. ? ? Tran Young PA-C ? ? [facility] OPERATIVE NOon 05-21-2019 OPERATIVE NO HNO ID: [id number] Author: Romel Queen Service: Orthopaedic Surgery Author Type: Physician Type: Operative Report Filed: 05/22/2019 2:41 PM Note Text: OPERATIVE/PROCEDURE REPORT LOG ID: [id number] SURGERY/PROCEDURE DATE: 05/21/2019 INCISION/PROCEDURE START TIME: 12:03 PM INCISION CLOSE/PROCEDURE END TIME: 1:11 PM SURGEON(S)/PROCEDURALIST (S) AND JOB SITE SUPERVISOR(S): Surgeon(s) and Role: * Romel Queen - Primary Physician Bar Captain: Tran Young (Pa) SURGERY/PROCEDURE(S): Right, index finger, open reduction metacarpal phalangeal joint. 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 The joint surface was certainly slightly eburnated with areas of grade 3 chondral loss. I worked my way down with a set of [place] elevators and it did not appear that [...] this side I was able to fit [place] in the joint and sweep down below [...] with assistance. No qualified resident/fellow was available. dental ceramist assistant was important with patient transport, arm board and tourniquet application, manual manipulation of the digit and soft tissue and neurovascular structures protected through retraction, final skin closure, splint application and return of the patient to recovery. SIGNATURE: Romel Queen MD PATIENT NAME: Andrew Peraza DATE: May 22, 2019 TIME: 2:29 PM PAGER/CONTACT #: [facility] PLAN OF CAREon 05-21-2019 PLAN OF CARE HNO ID: [id number] Author: Elli Seay ([employer]) Service: Pharmacy Author Type: ? Type: Plan of Care Filed: 05/21/2019 1:59 PM Note Text: [employer] BEDSIDE DELIVERY SURVEY 1. Patient to use [facility] Bedside Delivery - YES Insurance Information as follows: 2. Insurance card on file - YES 3. Credit card for payment - YES PHARMACY BEDSIDE DELIVERY SERVICE Patient Name: Andrew Peraza The marked outpatient medications were Filled at: [place] and delivered to the patient's bedside to [...] them or your Primary Care Provider. Elli eSay ([employer]) PAGER: [phone] May 21, 2019 1:59 PM [facility] PT EDon 05-21-2019 PT ED HNO ID: [id number] Author: Espinoza Cherry Lomeli RN Service: Nursing [...] Signed By: Espinoza Lomeli RN In Department: [facility] SURGERY [facility] PT ED HNO ID: [id number] Author: Nguyễn WalterRnGonzalo Escoto RN Service: Nursing Author Type: Registered Nurse Type: Patient Education Filed: 05/21/2019 10:37 AM Note Text: PATIENT EDUCATION TOPIC: PROCEDURE / SURGERY: Pre-op Teaching: PATIENT NAME: Andrew Guerra Karmen BORJAS PATIENT LOCATION: [facility] READINESS TO LEARN COGNITIVE ABILITY: Alert [...] REFERRAL (RECOMMENDATION): None Electronically Signed By: Nguyễn Esocto RN [facility] XR FLUOROSCOPYon 05-21-2019 XR FLUOROSCOPY * * *Final Report* * * DATE OF EXAM: May 21 2019 1:25PM [facility] - XR FLUOROSCOPY / PROCEDURE REASON: [...] procedure note for details regarding this procedure. Director Clinical Information Services: PAUL Transcribe Date/Time: May 21 2019 1:28P Dictated by : MINNA GONZALEZ MD This examination was interpreted and the report reviewed and electronically signed by: MINNA GONZALEZ MD on May 21 2019 1:29PM EST [id number] [facility] HOSPon 05-19-2019 HOSP Patient:Mauri Peraza hawa Geurra MD MRN: Height:5' 6(1.676 m) Weight:No patient [...] the following basenames: K,HCT Progress Notes ([facility]): Daniella Lewis RN 05/19/2019 2:38 PM Signed Please schedule ORIF right index second MCP for 05-21-2019 in [place]. Pt. has had TKA and will need Synthes hand tray. Krissy Calderon [facility] 05/19/2019 4:04 PM Signed Surgical request and post ops completed. Daniella Lewis RN 05/19/2019 4:[address] Queen, pt. will need OT the following Sunday after first post-op. Pt. willing to go to [place]. Please place OT order. Tran Young PA-C 05/19/2019 4:29 PM Signed OT order placed Daniella eLwis RN 05/19/2019 4:43 PM Signed Rickie please [...] to be closed. Progress Notes ([facility]): RT Mariam, Tech 05/19/2019 1:39 [...] RT Mariam May 19, 2019 1:32 PM [facility] Vital Signs Date Time Vital Sign Value Performing Clinician Tejinder frey 11-17-2024 13:03-0400 Body mass index (BMI) [Ratio] 27.06 kg/m2 Dontae Rowe MD Work Phone: [facility] 11-17-2024 13:03-0400 Body weight 74.89 kg Dontae Rowe MD Work Phone: [facility] 11-17-2024 13:03-0400 Diastolic blood pressure 71 mm[Hg] Dontae Rowe MD Work Phone: [facility] 11-17-2024 13:03-0400 Heart rate 68 /min Dontae Rowe MD Work Phone: [facility] 11-17-2024 13:03-0400 Respiratory rate 16 /min Dontae Rowe MD Work Phone: [facility] 11-17-2024 13:03-0400 Systolic blood pressure 133 mm[Hg] Dontae Rowe MD Work Phone: [facility] 04-22-2024 10:44-0500 Body height 166.4 cm Ross Blandon MD Work Phone: [facility] 04-22-2024 10:44-0500 Body mass index (BMI) [Ratio] 27.04 kg/m2 Ross Blandon MD Work Phone: [facility] 04-22-2024 10:44-0500 Body weight 74.84 kg Ross Blandon MD Work Phone: [facility] 04-22-2024 10:44-0500 Diastolic blood pressure 74 mm[Hg] Ross Blandon MD Work Phone: [facility] 04-22-2024 10:44-0500 Heart rate 68 /min Ross Blandon MD Work Phone: [facility] 04-22-2024 10:44-0500 Respiratory rate 16 /min Ross Blandon MD Work Phone: [facility] 04-22-2024 10:44-0500 Systolic blood pressure 128 mm[Hg] Ross Blandon MD Work Phone: [facility] 09-25-2023 09:27-0400 Body height 167.6 cm Al Mullen PA-C Work Phone: [facility] 09-25-2023 09:27-0400 Body mass index (BMI) [Ratio] 27.12 kg/m2 Al Mullen PA-C Work Phone: [facility] 09-25-2023 09:27-0400 Body temperature 98.2 [degF] Al Mullen PA-C Work Phone: [facility] 09-25-2023 09:27-0400 Body weight 76.2 kg Al Mullen PA-C Work Phone: [facility] 09-25-2023 09:27-0400 Diastolic blood pressure 76 mm[Hg] Al Mullen PA-C Work Phone: [facility] 09-25-2023 09:27-0400 Heart rate 68 /min Al Mullen PA-C Work Phone: [facility] 09-25-2023 09:27-0400 Respiratory rate 14 /min Al Mullen PA-C Work Phone: [facility] 09-25-2023 09:27-0400 SaO2% (BldA) [Mass fraction] 97 % Al Mullen PA-C Work Phone: [facility] 09-25-2023 09:27-0400 Systolic blood pressure 128 mm[Hg] Al Mullen PA-C Work Phone: [facility] 04-20-2023 09:50-0500 Body height 166.4 cm Ross Blandon MD Work Phone: [facility] 04-20-2023 09:50-0500 Body weight 73.48 kg Ross Blandon MD Work Phone: [facility] 04-20-2023 09:50-0500 Diastolic blood pressure 80 mm[Hg] Ross Blandon MD Work Phone: [facility] 04-20-2023 09:50-0500 Heart rate 64 /min Ross Blandon MD Work Phone: [facility] 04-20-2023 09:50-0500 Respiratory rate 16 /min Ross Blandon MD Work Phone: [facility] 04-20-2023 09:50-0500 Systolic blood pressure 132 mm[Hg] Ross Blandon MD Work Phone: [facility] 12-12-2022 15:13-0400 Body height 167.6 cm La Mullen PA-C Work Phone: [facility] 12-12-2022 15:13-0400 Body temperature 98.4 [degF] Al Mullen PA-C Work Phone: [facility] 12-12-2022 15:13-0400 Body weight 74.57 kg Al Mullen PA-C Work Phone: [facility] 12-12-2022 15:13-0400 Diastolic blood pressure 78 mm[Hg] Al Mullen PA-C Work Phone: [facility] 12-12-2022 15:13-0400 Heart rate 94 /min Al Mullen PA-C Work Phone: [facility] 12-12-2022 15:13-0400 Respiratory rate 14 /min Al Mullen PA-C Work Phone: [facility] 12-12-2022 15:13-0400 SaO2% (BldA) [Mass fraction] 97 % Al Mullen PA-C Work Phone: [facility] 12-12-2022 15:13-0400 Systolic blood pressure 136 mm[Hg] Al Mullen PA-C Work Phone: [facility] 12-29-2021 14:46-0400 Body temperature 97.5 [degF] Sherri Joel BADILLO.MANAGER BRAND Work Phone: [facility] 12-29-2021 14:46-0400 Body weight 71.67 kg Sherrilinnea Maldonado APRN.MANAGER BRAND Work Phone: [facility] 12-29-2021 14:46-0400 Diastolic blood pressure 84 mm[Hg] Sherri Maldonado APRN.MANAGER BRAND Work Phone: [facility] 12-29-2021 14:46-0400 Heart rate 68 /min Sherri Joel BADILLO.MANAGER BRAND Work Phone: [facility] 12-29-2021 14:46-0400 Respiratory rate 18 /min Sherrilinnea Maldonado APRN.MANAGER BRAND Work Phone: [facility] 12-29-2021 14:46-0400 SaO2% (BldA) [Mass fraction] 99 % Sherri Maldonado APRN.MANAGER BRAND Work Phone: [facility] 12-29-2021 14:46-0400 Systolic blood pressure 144 mm[Hg] Sherri Joel BADILLO.MANAGER BRAND Work Phone: [facility] Encounters Encounter Date Encounter Type Care Provider Facility Start: 12-11-2024 End: 12-11-2024 ambulatory ROSS BLANDON Facility:[facility] Start: 11-17-2024 End: 11-17-2024 Patient encounter procedure Dontae Rowe MD Work Phone: General Surgery Comment on above: Left inguinal hernia (Primary Dx) Start: 11-17-2024 End: 11-17-2024 ambulatory ROSS BLANDON Facility:[facility] Start: 10-23-2024 End: 10-23-2024 Patient encounter procedure Apolinar Blevins Work Phone: Podiatry Comment on above: Onychomycosis (Prima ry Dx); Pain in toe of right foot; Pain in toe of left foot; Ingrowing toenail Start: 10-23-2024 End: 10-23-2024 ambulatory ROSS BLANDON Facility:[facility] Start: 10-13-2024 End: 10-13-2024 Patient encounter procedure Tran RODRIGUEZ-C Work Phone: Orthopaedics Comment on above: 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 (Primary Dx) Start: 10-13-2024 End: 10-13-2024 [facility] Start: 09-02-2024 End: 09-03-2024 Patient encounter procedure Apolinar Blevins Work Phone: Podiatry Comment on above: Open wound of toe, i nitial encounter (Primary Dx) Start: 09-02-2024 End: [facility] Start: 08-20-2024 End: 08-20-2024 Patient encounter procedure Apolinar Blevins Work Phone: Podiatry Comment on above: Ingrowing toenail (P rimary Dx) Start: 08-20-2024 End: 08-20-2024 ambulatory ROSS A BARBER Facility:[facility] Start: 08-18-2024 End: 08-18-2024 Telephone encounter Apolinar Blevins Work Phone: Podiatry Comment on above: Appointment Start: 08-04-2024 End: 08-04-2024 Patient encounter procedure Tran RODRIGUEZ-C Work Phone: Orthopaedics Comment on above: 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 (Primary Dx) Start: 08-04-2024 End: 08-04-2024 ambulatory TRAN YOUNG Facility:[facility] Start: 07-14-2024 End: 07-14-2024 Patient encounter procedure Tran Young PA-C Work Phone: Orthopaedics Comment on above: 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 (Primary Dx); MCP subluxation, sequela Onychomycosis (Prima ry Dx); Pain in toe of right foot; Pain in toe of left foot Start: 07-14-2024 End: 07-14-2024 ambulatory ROSS BLANDON Facility:[facility] Start: 06-11-2024 End: 06-11-2024 ambulatory Tereso Balbuena PT Work Phone: [facility] Comment on above: Balance problem (Marlene bobo Dx); Abnormality of gait Start: 06-09-2024 End: 06-09-2024 ambulatory Irene Todd HAT MENDER Work Phone: [facility] Comment on above: Balance problem (Marlene bobo Dx); Abnormality of gait Start: 05-29-2024 End: 05-29-2024 ambulatory TERESO BALBUENA Facility:[facility] Start: 05-27-2024 End: 05-27-2024 ambulatory Irene Todd HAT MENDER Work Phone: [facility] Comment on above: Balance problem (Marlene bobo Dx); Abnormality of gait Refill Request Start: 05-26-2024 End: 05-26-2024 Refill Jennifer Kuamr APRN.MANAGER BRAND Work Phone: [facility] Comment on above: Refill Request Start: 05-22-2024 End: 05-22-2024 ambulatory Tereso Balbuena PT Work Phone: [facility] Comment on above: Balance problem (Marlene bobo Dx); Abnormality of gait Start: 05-20-2024 End: 05-20-2024 ambulatory Irene Todd HAT MENDER Work Phone: [facility] Comment on above: Balance problem (Marlene bobo Dx); Abnormality of gait Start: 05-14-2024 End: 05-14-2024 ambulatory Teresotrina Balbuena PT Work Phone: [facility] Comment on above: Balance problem (Marlene bobo Dx); Abnormality of gait Start: 05-07-2024 End: 05-07-2024 ambulatory Teresotrina Balbuena PT Work Phone: [facility] Comment on above: Balance problem (Marlene bobo Dx); Abnormality of gait Start: 05-05-2024 End: 05-05-2024 ambulatory Tereso Balbuena PT Work Phone: [facility] Comment on above: Balance problem (Marlene bobo Dx); Abnormality of gait Start: 04-28-2024 End: 04-28-2024 Patient encounter procedure Tran Young PA-C Work Phone: Orthopaedics Comment on above: 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 (Primary Dx) Start: 04-28-2024 End: 04-28-2024 ambulatory ROSS BLANDON Facility:[facility] Start: 04-28-2024 End: 04-28-2024 Subsequent hospital visit by physician He[facility] P[facility] Dominique Work Phone: Radiology Comment on above: Right hand pain [M79 .641] Start: 04-24-2024 End: 04-24-2024 Follow-up encounter Ross Blandon MD Work Phone: [facility] Start: 04-22-2024 End: 04-22-2024 ambulatory ROSS BLANDON Facility:[facility] Start: 04-22-2024 End: 04-22-2024 Patient encounter procedure Ross Blandon MD Work Phone: [facility] [place] Comment on above: Medicare annual well ness [...] Start: 04-22-2024 End: 04-22-2024 ambulatory ROSS BLANDON Facility:[facility] Start: 04-16-2024 End: 04-16-2024 Orders Only Romel Queen MD Work Phone: Orthopaedics Comment on above: Right hand pain (Marlene bobo Dx) Start: 04-15-2024 End: 04-15-2024 ambulatory APOLINAR BLEVINS Facility:[facility] Start: 04-15-2024 End: 04-15-2024 Patient encounter procedure Apolinar Blevins Work Phone: Podiatry Comment on above: Onychomycosis (Prima ry Dx); Pain in toe of right foot; Pain in toe of left foot Start: 01-14-2024 End: 01-14-2024 ambulatory APOLINAR BLEVINS Facility:[facility] Start: 01-14-2024 End: 01-14-2024 Patient encounter procedure Apolinar Blevins Work Phone: Podiatry Comment on above: Onychomycosis (Prima ry Dx); Pain in toe of right foot; Pain in toe of left foot Start: 01-04-2024 End: 01-04-2024 Refill Ross Blandon MD Work Phone: [facility] [place] Comment on above: Refill Request Start: 01-02-2024 End: 01-02-2024 Refill Ross Blandon MD Work Phone: [facility] [place] Comment on above: Refill Request Start: 11-27-2023 End: 11-27-2023 Refill Ross Blandon MD Work Phone: [facility] Comment on above: Refill Request Start: 09-25-2023 [...] 07-10-2023 Refill Ross pickard MD Work Phone: [facility] [place] Comment on above: Refill Request Start: 07-09-2023 End: 07-09-2023 Patient encounter procedure Apolinar Blevins Work Phone: Podiatry Comment on above: Ingrowing toenail (P rimary Dx) Refill Request ([facility] Managed Refill) Start: 06-14-2023 End: 06-14-2023 Patient encounter procedure Apolinar Blevins Work Phone: Podiatry Comment on above: Onychomycosis (Prima ry Dx); Pain in toe of right foot; Pain in toe of left foot Start: 05-21-2023 Telephone encounter Ross Blandon MD Work Phone: [facility] [place] Comment on above: vaccine question; Re sults Start: 04-20-2023 End: 04-20-2023 Patient encounter procedure Ross Blandon MD Work Phone: [facility] [place] Comment on above: Medicare annual [...] Telephone encounter Ross Blandon MD Work Phone: [facility] [place] Comment on above: Orders Start: 12-25-2022 Telephone encounter lA robles PA-C Work Phone: Urology Comment on above: Patient Update Start: 12-12-2022 End: 12-12-2022 Patient encounter procedure Al Mullen PA-C Work Phone: Urology Comment on above: Nocturia (Primary Dx ); Stress incontinence, male; Urinary hesitancy; Malignant neoplasm of prostate (HCC) Start: 12-10-2022 Refill Ally Patterson on PA-C Work Phone: [facility] [place] Comment on above: Med Change Request Start: 11-23-2022 End: 11-23-2022 Nursing evaluation of patient and report Mi Nurse Work Phone: [facility] [place] Comment on above: Need for influenza v accination (Primary Dx) Start: 11-15-2022 End: 11-15-2022 Patient encounter procedure Apolinar Blevins Work Phone: Podiatry Comment on above: Onychomycosis (Prima ry Dx); Pain in toe of left foot; Pain in toe of right foot; Diminished pulses in lower extremity Start: 11-10-2022 Refill Ally Patterson on PA-C Work Phone: [facility] [place] Comment on above: Refill Request Start: 11-07-2022 Refill Ross pickard MD Work Phone: [facility] [place] Comment on above: Refill Request Start: 09-18-2022 Telephone encounter Apolinar Loja Work Phone: Podiatry Comment on above: Appointment Start: 05-31-2022 End: 05-31-2022 Patient encounter procedure Apolinar Blevins Work Phone: Podiatry Comment on above: Onychomycosis (Prima ry Dx); Pain in toe of left foot; Pain in toe of right foot; Diminished pulses in lower extremity Start: 04-19-2022 Patient encounter procedure Apolinar Blevins Work Phone: [facility] Work Phone: Start: 04-10-2022 Telephone encounter Ross Blandon MD Work Phone: [facility] [place] Comment on above: requesting fasting l ab orders Start: 04-03-2022 End: 04-03-2022 Patient encounter procedure Apolinar Yepezskylar Work Phone: Podiatry Comment on above: Onychomycosis (Prima ry Dx); Pain in toe of left foot; Pain in toe of right foot; PAD (peripheral artery disease) (HCC); Diminished pulses in lower extremity Start: 02-01-2022 Telephone encounter Ross Blandon MD Work Phone: [facility] [place] Comment on above: Patient Update; Medi cation Request Start: 12-29-2021 End: 12-29-2021 Patient encounter procedure Sherri Maldonado ABY.MANAGER BRAND Work Phone: [facility] [place] [facility] Comment on above: Dizziness (Primary D x) Start: 12-24-2021 End: 12-24-2021 ambulatory Immun[facility] Nurse [place] Work Phone: [facility] Comment on above: Arrived Start: 10-06-2021 Telephone encounter Ross Blandon MD Work Phone: [facility] [place] Comment on above: Results Start: 07-28-2021 Telephone encounter Ross Blandon MD Work Phone: [facility] [place] Comment on above: [place] [facility] equesting records Start: 07-19-2021 End: 07-19-2021 Nursing evaluation of patient and report Mi Nurse Work Phone: [facility] [place] Comment on above: Need for vaccination (Primary Dx) Start: 04-18-2021 Patient encounter procedure Ross Blandon MD Work Phone: [facility] Work Phone: Start: 07-16-2020 Telephone encounter Ross Blandon MD Work Phone: [facility] Comment on above: Medication issue [...] Start: 04-22-2027 Diabetes Screening Diabetes Screenin g [facility] Start: 04-16-2026 Diabetes Screening Diabetes Screenin g [facility] Start: 04-22-2025 Anxiety Screening Anxiety Screening [facility] Start: 04-22-2025 Depression Screening Depression Scre ening [facility] Start: 04-22-2025 Medicare Annual Wellness Visit Medicare Annual Wellness Visit [facility] Start: 04-22-2025 End: 04-22-2025 Patient encounter procedure [facility] Comment on above: medicare wellness Start: 04-13-2025 DIABETES SCREEN DIABETES SCREEN [facility] Start: 04-13-2025 Diabetes Screening Diabetes Screenin g [facility] Start: 04-05-2025 End: 07-05-2025 CBC W Auto Differential panel - Blood COMPLETE BLOOD COUNT AND DIFFERENTIAL Lab Routine Low serum vitamin B12 Medication management Expected: 04/05/2025, Expires: 07/05/2025 [facility] Comment on above: Expected: 04/05/2025 , Expires: 07/05/2025 Start: 04-05-2025 End: 07-05-2025 Cobalamin (Vitamin B12) [Mass/volume] in Serum or Plasma VITAMIN B12 Lab Routine GERD without esophagitis Low serum vitamin B12 Medication management Expected: 04/05/2025, Expires: 07/05/2025 [facility] Comment on above: Expected: 04/05/2025 , Expires: 07/05/2025 Start: 04-05-2025 End: 07-05-2025 Comprehensive metabolic 2000 panel - Serum or Plasma COMPREHENSIVE METABOLIC PANEL Lab Routine Essential hypertension Mixed hyperlipidemia Elevated blood sugar Expected: 04/05/2025, Expires: 07/05/2025 [facility] Comment on above: Expected: 04/05/2025 , Expires: 07/05/2025 Start: 04-05-2025 End: 07-05-2025 Hemoglobin A1c in Blood HEMOGLOBIN A1C Lab Routine Elevated blood sugar Expected: 04/05/2025, Expires: 07/05/2025 [facility] Comment on above: Expected: 04/05/2025 , Expires: 07/05/2025 Start: 04-05-2025 End: 07-05-2025 LIPID PANEL, NONFASTING LIPID PANEL, NONFASTING Lab Routine Essential hypertension Mixed hyperlipidemia Expected: 04/05/2025, Expires: 07/05/2025 [facility] Comment on above: Expected: 04/05/2025 , Expires: 07/05/2025 Start: 04-05-2025 End: 07-05-2025 Magnesium [Mass/volume] in Serum or Plasma MAGNESIUM Lab Routine GERD without esophagitis Medication management Expected: 04/05/2025, Expires: 07/05/2025 [facility] Comment on above: Expected: 04/05/2025 , Expires: 07/05/2025 Start: 04-05-2025 End: 07-05-2025 Urinalysis complete panel - Urine URINALYSIS, WITH MICROSCOPIC Lab Routine Essential hypertension Mixed hyperlipidemia Expected: 04/05/2025, Expires: 07/05/2025 [facility] Comment on above: Expected: 04/05/2025 , Expires: 07/05/2025 Start: 03-20-2025 Urine microalbumin profile [facility] Start: 01-23-2025 End: 01-23-2025 Patient encounter procedure 01/23/2025 10:15 AM EST Office Visit Podiatry [address] [place] [address] Apolinar Blevins [address] [place] [address] 3 month follow up nail care Podiatry Comment on above: 3 month follow up na il care Start: 01-19-2025 End: 01-19-2025 Patient encounter procedure 01/19/2025 10:30 AM EST Office Visit Orthopaedics [address] [place] [address] Tran Young PA-C [address] [place] [address] Right thumb - wants injection Orthopaedics Comment on above: Right thumb - wants injection Start: 11-03-2024 Influenza vaccination Influenza Vacc ine (#1) [facility] Start: 10-23-2024 End: 10-23-2024 Patient encounter procedure 10/23/2024 10:15 AM EDT Office Visit Podiatry [address] [place] [address] Apolinar Blevins [address] [place] [address] 3 month follow up nail care Podiatry Comment on above: 3 month follow up na il care Start: 10-13-2024 End: 10-13-2024 Patient encounter procedure Podiatry Comment on above: 3 month follow up na il care Right thumb - wants injection Start: 09-02-2024 End: 09-02-2024 Patient encounter procedure 09/02/2024 2:45 PM EDT Office Visit Podiatry [address] [place] [address] Apolinar Blevins [address] [place] [address] 2 week follow up procedure Podiatry Comment on above: 2 week follow up pro cedure Start: 08-20-2024 End: 08-20-2024 Patient encounter procedure 08/20/2024 9:15 AM EDT Office Visit Podiatry [address] [address] Apolinar Blevins [address] [facility] [place] [address] ingrown toenail Podiatry Comment on above: ingrown toenail Start: 08-04-2024 End: 08-04-2024 Patient encounter procedure 08/04/2024 10:00 AM EDT Office Visit Orthopaedics [address] [place], [place] [id number] Tran Young PA-C [address] [place] [address] R hand pain had surgery previously by [facility] Comment on above: R hand pain had surg malik previously by [facility] Start: 07-14-2024 End: 07-14-2024 Patient encounter procedure Podiatry Comment on above: 3 month follow up jaymie ky rabia R hand pain had surg malik previously by [facility] Start: 06-11-2024 End: 06-11-2024 ambulatory 06/11/2024 9:15 AM EDT OT/PT/Speech Visit [facility] [address] [facility] [place] [address] Tereso Balbuena, PT [address] [place], [place] [id number] R26.89 (ICD-10-CM) - Balance problem [facility] Comment on above: R26.89 (ICD-10-CM) - Balance problem Start: 06-09-2024 End: 06-09-2024 ambulatory 06/09/2024 9:30 AM EDT OT/PT/Speech Visit [facility] [address] [place] [address] Porsha Toddh, HAT MENDER [address] [place] [address] R26.89 (ICD-10-CM) - Balance problem [facility] Comment on above: R26.89 (ICD-10-CM) - Balance problem Start: 06-05-2024 End: 06-05-2024 ambulatory 06/05/2024 3:00 PM EDT OT/PT/Speech Visit [facility] [address] [place] [address] Tereso Balbuena, PT [address] [place] [address] R26.89 (ICD-10-CM) - Balance problem [facility] Comment on above: R26.89 (ICD-10-CM) - Balance problem Start: 06-03-2024 End: 06-03-2024 ambulatory 06/03/2024 9:30 AM EDT OT/PT/Speech Visit [facility] [address] [place] [address] Marioeastonangela Irene, HAT MENDER [address] [place] [address] R26.89 (ICD-10-CM) - Balance problem [facility] Comment on above: R26.89 (ICD-10-CM) - Balance problem Start: 05-29-2024 End: 05-29-2024 ambulatory 05/29/2024 10:45 AM EDT OT/PT/Speech Visit [facility] [address] [place] [address] Tereso Balbuena, PT [address] [place] [address] R26.89 (ICD-10-CM) - Balance problem [facility] Comment on above: R26.89 (ICD-10-CM) - Balance problem Start: 05-27-2024 End: 05-27-2024 ambulatory 05/27/2024 9:30 AM EDT OT/PT/Speech Visit [facility] [address] [place] [address] Irene Todd, HAT MENDER [address] [place] [address] R26.89 (ICD-10-CM) - Balance problem [facility] Comment on above: R26.89 (ICD-10-CM) - Balance problem Start: 05-22-2024 End: 05-22-2024 ambulatory 05/22/2024 10:45 AM EDT OT/PT/Speech Visit [facility] [address] [place] [address] Tereso Balbuena, PT [address] [place] [address] R26.89 (ICD-10-CM) - Balance problem [facility] Comment on above: R26.89 (ICD-10-CM) - Balance problem Start: 05-20-2024 End: 05-20-2024 ambulatory 05/20/2024 8:45 AM EDT OT/PT/Speech Visit [facility] [address] [place] [address] Irene Todd, HAT MENDER [address] [place] [address] R26.89 (ICD-10-CM) - Balance problem [facility] Comment on above: R26.89 (ICD-10-CM) - Balance problem Start: 05-17-2024 Covid-19 Vaccine ( season) Covid-19 Vaccine ( season) [facility] Start: 05-14-2024 End: 05-14-2024 ambulatory 05/14/2024 11:30 AM EDT OT/PT/Speech Visit [facility] [address] [place] [address] Tereso Balbuena, PT [address] [place] [address] R26.89 (ICD-10-CM) - Balance problem [facility] Comment on above: R26.89 (ICD-10-CM) - Balance problem Start: 05-07-2024 End: 05-07-2024 ambulatory 05/07/2024 7:45 AM EST OT/PT/Speech Visit [facility] [address] [place] [address] Tereso Balbuena, PT [address] [place] [address] R26.89 (ICD-10-CM) - Balance problem [facility] Comment on above: R26.89 (ICD-10-CM) - Balance problem Start: 05-05-2024 End: 05-05-2024 ambulatory 05/05/2024 10:00 AM EST OT/PT/Speech Visit [facility] [address] [place] [address] Tereso Balbuena, PT [address] [place], [place] [id number] Balance problem [R26.89]; Abnormality of gait [R26.9] [facility] Comment on above: Balance problem [R26 .89]; Abnormality of gait [R26.9] Start: 04-28-2024 End: 04-28-2024 Patient encounter procedure 04/28/2024 10:30 AM EST Office Visit Orthopaedics [address] [place] [address] Tran Young PA-C [address] [place] [address] R hand pain had surgery previously by [facility] Comment on above: R hand pain had surg malik previously by [facility] Start: 04-22-2024 End: 07-22-2024 CBC W Auto Differential panel - Blood [facility] Comment on above: Expected: 04/22/2024 , Expires: 07/22/2024 Start: 04-22-2024 End: 07-22-2024 Cobalamin (Vitamin B12) [Mass/volume] in Serum or Plasma [facility] Work Phone: Comment on above: Expected: 04/22/2024 , Expires: 07/22/2024 Start: 04-22-2024 End: 07-22-2024 Comprehensive metabolic 2000 panel - Serum or Plasma [facility] Comment on above: Expected: 04/22/2024 , Expires: 07/22/2024 Start: 04-22-2024 End: 07-22-2024 Hemoglobin A1c in Blood [facility] Comment on above: Expected: 04/22/2024 , Expires: 07/22/2024 Start: 04-22-2024 End: 07-22-2024 LIPID PANEL, NONFASTING [facility] Comment on above: Expected: 04/22/2024 , Expires: 07/22/2024 Start: 04-22-2024 End: 07-22-2024 Magnesium [Mass/volume] in Serum or Plasma [facility] Comment on above: Expected: 04/22/2024 , Expires: 07/22/2024 Start: 04-22-2024 End: 07-22-2024 Urinalysis complete panel - Urine [facility] Comment on above: Expected: 04/22/2024 , Expires: 07/22/2024 Start: 04-22-2024 End: 04-22-2024 Patient encounter procedure 04/22/2024 10:40 AM EST Office Visit [facility] [place] [address] [place] [address] Ross Blandon MD [address] [place] [address] Medicare wellness [facility] Comment on above: Medicare wellness Start: 04-20-2024 RSV Vaccine (1 - 1-d ose 60+ series) RSV Vaccine (1 - 1-dose 60+ series) [facility] Comment on above: Postponed from 10/09 (Insurance Coverage) Start: 04-15-2024 End: 04-15-2024 Patient encounter procedure 04/15/2024 9:15 AM EST Office Visit Podiatry [address] [place] [address] Apolinar Blevins [address] [place] [address] 3mth follow up Podiatry Comment on above: 3mth follow up Start: 03-11-2024 End: 03-11-2024 Patient encounter procedure 03/11/2024 9:30 AM EST Office Visit Urology [address] [place] [address] Al Mullen PA-C [address] [place], [place] [id number] 1 year follow up Urology Comment on above: 1 year follow up Start: 03-09-2024 DIABETES SCREEN DIABETES SCREEN [facility] Start: 03-05-2024 Advance Directive Discussion Advance Directive Discussion [facility] Start: 01-14-2024 End: 01-14-2024 Patient encounter procedure 01/14/2024 9:15 AM EST Office Visit Podiatry [address] [place] [address] Apolinar Blevins [address] [place] [address] 3 month follow up nail care Podiatry Comment on above: 3 month follow up na il care Start: 12-13-2023 End: 12-13-2023 Patient encounter procedure 12/13/2023 9:00 AM EDT Office Visit Podiatry [address] [place] [address] Apolinar Blevins [address] [place] [address] 3 month follow up nail care Podiatry Comment on above: 3 month follow up na il care Start: 11-04-2023 Covid-19 Vaccine ( season) Covid-19 Vaccine () [facility] Start: 11-04-2023 Influenza vaccination Influenza Vacc ine (#1) [facility] Start: 09-10-2023 End: 09-10-2023 Patient encounter procedure 09/10/2023 8:15 AM EDT Office Visit Podiatry [address] [place] [address] Apolinar Blevins [address] [facility] [place] [address] 3 mth nail care Podiatry Comment on above: 3 mth nail care Start: 07-26-2023 End: 07-26-2023 Patient encounter procedure 07/26/2023 9:45 AM EDT Office Visit Podiatry [address] [place] [address] Apolinar Blevins [address] [facility] [place] [address] 2 week follow up R great toe Podiatry Comment on above: 2 week follow up R g reat toe Start: 04-10-2023 Covid-19 Vaccine (6 - Moderna series) Covid-19 Vaccine (6 - Moderna series) [facility] Start: 04-10-2023 Covid-19 Vaccine () Covid-19 Vaccine () [facility] Start: 03-05-2023 Advance Directive Discussion Advance Directive Discussion [facility] Start: 03-05-2023 Behavioral Health Screening Behavioral Health Screening [facility] Start: 03-05-2023 Depression Assessment Depression Ass essment [facility] Start: 11-03-2022 Influenza vaccination [facility] Start: 04-26-2022 COVID-19 VACCINE (6 - Moderna series) COVID-19 VACCINE (6 - Moderna series) [facility] Start: 04-18-2022 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 ANNUAL PCP TEAM CHRONIC DISEASE VISIT [facility] Start: 04-18-2022 BP CONTROLLED (<130/80) BP CONTROLLE D (<130/80) [facility] Start: 04-10-2022 End: 06-10-2022 Cobalamin (Vitamin B12) [Mass/volume] in Serum or Plasma VITAMIN B12 BLOOD Lab Routine GERD without esophagitis Medication management Expected: 04/10/2022, Expires: 06/10/2022 [facility] Work Phone: Comment on above: Expected: 04/10/2022 , Expires: 06/10/2022 Start: 04-10-2022 End: 06-10-2022 Comprehensive metabolic 2000 panel - Serum or Plasma COMP METABOLIC PANEL Lab Routine Essential hypertension Mixed hyperlipidemia Expected: 04/10/2022, Expires: 06/10/2022 [facility] Work Phone: Comment on above: Expected: 04/10/2022 , Expires: 06/10/2022 Start: 04-10-2022 End: 06-10-2022 LIPID PANEL, NONFASTING LIPID PANEL, NONFASTING Lab Routine Essential hypertension Mixed hyperlipidemia Expected: 04/10/2022, Expires: 06/10/2022 [facility] Work Phone: Comment on above: Expected: 04/10/2022 , Expires: 06/10/2022 Start: 04-10-2022 End: 06-10-2022 Magnesium [Mass/volume] in Serum or Plasma MAGNESIUM BLD Lab Routine GERD without esophagitis Medication management Expected: 04/10/2022, Expires: 06/10/2022 [facility] Work Phone: Comment on above: Expected: 04/10/2022 , Expires: 06/10/2022 Start: 04-10-2022 End: 06-10-2022 Prostate specific Ag [Mass/volume] in Serum or Plasma PSA/PROSTSPECAG DIAG Lab Routine Malignant neoplasm of prostate (HCC) Expected: 04/10/2022, Expires: 06/10/2022 [facility] Work Phone: Comment on above: Expected: 04/10/2022 , Expires: 06/10/2022 Start: 04-10-2022 End: 06-10-2022 Urinalysis complete panel - Urine URINALYSIS, WITH MICROSCOPIC Lab Routine Essential hypertension Mixed hyperlipidemia Expected: 04/10/2022, Expires: 06/10/2022 [facility] Work Phone: Comment on above: Expected: 04/10/2022 , Expires: 06/10/2022 Start: 03-05-2022 ADVANCE DIRECTIVE DISCUSSION ADVANCE DIRECTIVE DISCUSSION [facility] Start: 03-05-2022 DEPRESSION ASSESSMENT DEPRESSION ASS ESSMENT [facility] Start: 11-03-2021 Influenza vaccination INFLUENZA (#1) [facility] Start: 07-14-2021 Adult depression screening assessment DEPRESSION SCREENING [facility] Start: 03-05-2021 ADVANCE DIRECTIVE DISCUSSION ADVANCE DIRECTIVE DISCUSSION [facility] Start: 03-05-2021 DEPRESSION ASSESSMENT [facility] Start: 2000 RSV Vaccine (1 - 1-d ose 60+ series) RSV Vaccine (1 - 1-dose 60+ series) [facility] Start: 1958 Anxiety Screening Anxiety Screening [facility] Start: 1958 Depression Screening Depression Scre ening [facility] POST VOID RESIDUAL POST VOID RES IDUAL Procedures Routine Urinary hesitancy Nocturia Ordered: 12/12/2022 [facility] Work Phone: Comment on above: Ordered: 12/12/2022 POST VOID RESIDUAL POST VOID RES IDUAL Procedures Routine Nocturia Malignant neoplasm of prostate (HCC) Screening for genitourinary condition Ordered: 09/25/2023 [facility] Work Phone: Comment on above: Ordered: 09/25/2023 End: 04-03-2023 [facility]VR [facility]K [facility] Vascular Lab Routine Onychomycosis Diminished pulses in lower extremity 1 Occurrences starting 04/03/2022 until 04/03/2023 [facility] Work Phone: Comment on above: 1 Occurrences starti ng 04/03/2022 until 04/03/2023 Removal impacted cerumen irrigation/lvg unilat AMBULATORY EAR LAVAGE/IRRIGATION Procedures Routine Bilateral impacted cerumen Ordered: 04/22/2024 [facility] Comment on above: Ordered: 04/22/2024 Rpr 1st ingun hrna a ge 5 yrs/> reducible HERNIORRHAPHY INGUINAL INITIAL HERNIA >5 YRS REDUCIBLE (ELECTIVE) Left inguinal hernia ME OR End: 05-16-2025 XR Hand - right PA and Lateral and Oblique XR HAND GENERAL 3V PA/LAT/OBL RIGHT Radiology Routine Right hand pain 1 Occurrences starting 04/16/2024 until 05/16/2025 [facility] Work Phone: Comment on above: 1 Occurrences starti ng 04/16/2024 until 05/16/2025 XR Hand - right PA a nd Lateral and Oblique XR HAND GENERAL 3V PA/LAT/OBL RIGHT Radiology Routine Right hand pain 04/28/2024 10:32 AM EST [facility] Work Phone: [facility] Immunizations Immunization Date Immunization Notes Care Provider Fa [facility] 02-29-2024 respiratory syncytia l virus (RSV) vaccine, adjuvanted (AREXVY) Ross Blandon MD Work Phone: [facility] 11-18-2023 influenza, high dose seasonal, preservative-free Ross Blandon MD Work Phone: [facility] 11-18-2023 influenza virus vaccine, unspecified formulation Apolinar Blevins Work Phone: [facility] 12-08-2022 COVID-19 vaccine, ag e 12+ yr, season (PFIZER-BIONTWhatsApp) Ally De PA-C Work Phone: [facility] 11-23-2022 influenza (HD-IIV4) vaccine, age 65+ yr, high dose, quadrivalent, PF (FLUZONE HIGH-DOSE) Mi Nurse Work Phone: [facility] Work Phone: 11-23-2022 influenza virus vaccine, unspecified formulation Apolinar Blevins Work Phone: [facility] 12-24-2021 COVID-19 booster vaccine, age 12+ yr, bivalent (PFIZER-BIONTECH) Immunization [place] Work Phone: [facility] Work Phone: 12-24-2021 influenza, high-dose , quadrivalent vaccine (FLUZONE HIGH DOSE QUADRIVALENT) Immunization [place] Work Phone: [facility] Work Phone: 12-24-2021 influenza virus vaccine, unspecified formulation Apolinarbeau Jordan Work Phone: [facility] 07-19-2021 COVID-19 vaccine, ag e 12+ yr (PFIZER-BIONTECH - KELLY TOP) Ne Nurse Work Phone: [facility] Work Phone: 04-19-2021 pneumococcal polysaccharide vaccine, 23 valent Ne Nurse Work Phone: [facility] 12-27-2020 COVID-19 vaccine, fu ll dose (MODERNA) Ne Nurse Work Phone: [facility] 12-25-2020 influenza, high-dose , quadrivalent vaccine (FLUZONE HIGH DOSE QUADRIVALENT) Ne Nurse Work Phone: [facility] Work Phone: 05-12-2020 COVID-19 vaccine, fu ll dose (MODERNA) Ross Blandon MD Work Phone: [facility] Work Phone: 04-15-2020 COVID-19 vaccine, fu ll dose (MODERNA) Ross Blandon MD Work Phone: [facility] Work Phone: 11-12-2019 influenza, high-dose , quadrivalent vaccine (FLUZONE HIGH DOSE QUADRIVALENT) Ross Blandon MD Work Phone: [facility] 02-19-2019 zoster vaccine recombinant Ross Blandon MD Work Phone: [facility] 12-30-2018 influenza, high dose seasonal, preservative-free Ross Blandon MD Work Phone: [facility] Work Phone: 10-22-2018 zoster vaccine recombinant Ross Blandon MD Work Phone: [facility] 12-27-2017 zoster vaccine recombinant Ally De PA-C Work Phone: [facility] 12-21-2017 influenza, high dose seasonal, preservative-free Ross Blandon MD Work Phone: [facility] Work Phone: 08-10-2017 zoster vaccine recombinant Ally De PA-C Work Phone: [facility] 01-09-2017 influenza, high dose seasonal, preservative-free Ross Blandon MD Work Phone: [facility] Work Phone: 12-08-2015 influenza, high dose seasonal, preservative-free Ross Blandon MD Work Phone: [facility] Work Phone: 03-20-2015 pneumococcal conjuga te vaccine, 13 valent Ross Blandon MD Work Phone: [facility] 03-20-2015 tetanus and diphther ia toxoids, adsorbed, preservative free, for adult use (5 Lf of tetanus toxoid and 2 Lf of diphtheria toxoid) Ross Blandon MD Work Phone: [facility] 03-20-2015 tetanus toxoid, redu shanthi diphtheria toxoid, and acellular pertussis vaccine, adsorbed Ally De PA-C Work Phone: [facility] 01-16-2015 influenza, high dose seasonal, preservative-free Ross Blandon MD Work Phone: [facility] Work Phone: 12-26-2013 influenza, seasonal, injectable Ross Blandon MD Work Phone: [facility] 12-20-2012 influenza virus vaccine, unspecified formulation Ross Blandon MD Work Phone: [facility] Work Phone: 12-28-2011 influenza virus vaccine, unspecified formulation Ross Blandon MD Work Phone: [facility] 01-16-2011 pneumococcal polysaccharide vaccine, 23 valent Ross Blandon MD Work Phone: [facility] 01-16-2011 zoster vaccine, live Ross Blandon MD Work Phone: [facility] 12-01-2010 influenza virus vaccine, unspecified formulation Ross Blandon MD Work Phone: [facility] 12-27-2009 influenza virus vaccine, unspecified formulation Ross Blandon MD Work Phone: [facility] 12-29-2008 influenza virus vaccine, unspecified formulation Ross Blandon MD Work Phone: [facility] 12-30-2007 influenza virus vaccine, unspecified formulation Ross Blandon MD Work Phone: [facility] 01-22-2007 influenza virus vaccine, unspecified formulation Ross Blandon MD Work Phone: [facility] 01-10-2006 influenza virus vaccine, unspecified formulation Ross Blandon MD Work Phone: [facility] 03-09-2005 diphtheria and tetan us toxoids, adsorbed for pediatric use Ross Blandon MD Work Phone: [facility] Work Phone: Payers Date Payer Category Payer Private Health Insurance EHP AET NA EHP RETIREE OVER 65 / EHP CC Retiree Over 65 [id number] 2021-Present [address] [place] [address] EPO [id number] 2021 Private Health Insurance [id number] 2021 Unknown [id number] 2015 Unknown P S ZZZEHRosa S TAFF RETIREE 65 OVER / EHP CC Staff Retired 65+ [id number] 2015-2021 [address] [address] [place] [address] [facility] [id number] 2005 Medicare MEDICARE MEDICAR E A AND B [id number] 2005-Present [phone] [address] [address] [place] [address] Medicare [id number] 2005 Medicare [id number] 2005 Medicare [id number] Social History Date Type Detail Facility Start: 10-04-2016 End: 12-29-2021 Tobacco smoking status NHIS Ex-smoker [facility] End: 10-04-2006 History of tobacco use Current smoker [facility] End: 10-04-2006 History of tobacco use Pipe Smoker [facility] Start: 07-14-2020 End: 11-12-2024 Alcohol intake Current drinker of alcohol (finding) [facility] Start: 07-14-2020 End: 08-14-2022 Alcohol intake [facility] Start: 11-06-2019 End: 04-18-2022 History SDOH Alcohol Frequency 5 [facility] Start: 11-06-2019 End: 04-18-2022 History SDOH Alcohol Std Drinks 1 [facility] Start: 11-06-2019 End: 04-18-2022 History SDOH Physical Activity DPW 2 [facility] Start: 11-06-2019 End: 04-18-2022 History SDOH Physical Activity MPS 3 [facility] Start: 11-06-2019 Education 19 [facility] Start: 1940 Sex Assigned At Not on file [facility] Start: 03-19-2021 End: 01-30-2022 Exposure to SARS-CoV-2 (event) Not sure [facility] Start: 10-04-2016 End: 12-29-2021 Tobacco use and exposure Smokeless tobacco non-user [facility] Work Phone: Start: 12-29-2021 Tobacco Comment Pt quit smoking pipe . [facility] Start: 04-18-2022 End: 08-14-2022 Social connection and isolation panel [facility] Do you belong to any clubs or organizations such as hindu groups, unions, fraDarberry or athletic groups, or school groups? Yes [facility] Are you now , , , , never or living with a partner? [facility] How often to you hav e a drink containing alcohol? 4 or more times a week [facility] How many standard dr inks containing alcohol do you have on a typical day? 1 or 2 [facility] How often do you hav e 6 or more drinks on 1 occasion? Never [facility] Start: 02-04-2012 Adult Depression Scr eening Assessment 0 [facility] Work Phone: Do you feel stress - tense, restless, nervous, or anxious, or unable to sleep at night because your mind is troubled all the time - these days [OSQ] Only a little [facility] (I/We) worried wheth er (my/our) food would run out before (I/we) got money to buy more. Never true [facility] In the past 12 month s, was there a time when you were not able to pay the mortgage or rent on time? No [facility] Medical Equipment Procedure Code Equipment Code Equipment Origin al Text Equipment Identifier Dates Cement Simplex P Bone Radiopaque Full Dose Sterile - [id number] Start: 10-30-2016 Comment on above: Description: SIMPLEX P BONE CEMENT Component Triathlon 5 Femoral Cruciate Retain Cemented Knee Right - [id number] Start: 10-30-2016 Comment on above: Description: TRIATHL ON CRUCIATE RETAINING FEMORAL Insert Triathlon 5 X3 11mm Tibial Cruciate Retaining Knee - [id number] Start: 10-30-2016 Component Triathlon 38mm X3 11mm Patellar Asymmetric Knee - [id number] Start: 10-30-2016 Comment on above: Description: TRIATHL ON x3 ASYMMETRIC PATELLA Mesh Sft Preshpd 6x13.7cm - [id number] Start: 12-08-2014 Baseplate Triathlon 5 Tibial Primary Cement Knee - [id number] Start: 10-30-2016 Comment on above: Description: TRIATHL ON PRIMARY TIBIAL BASEPLATE Functional Status Date Assessment Result Facility 04-22-2024 Total score [AUDIT-C] 4 04/22/19 25 10:39 AM Vera Hall MA [facility] 04-21-2019 Are you deaf, or do you have serious difficulty hearing No 04/21/2019 8:22 PM Ronal De La Cruz III, MD No [facility] 04-21-2019 Are you blind, or do you have serious difficulty seeing, even when wearing glasses No 04/21/2019 8:22 PM Ronal De La Cruz III, MD No [facility] 04-21-2019 Do you have serious difficulty walking or climbing stairs No 04/21/2019 8:22 PM Ronal De La Cruz III, MD No [facility] 04-21-2019 Do you have difficul ty dressing or bathing No 04/21/2019 8:22 PM Ronal De La Cruz III, MD [facility] 04-21-2019 Because of a physica l, mental, or emotional condition, do you have difficulty doing errands alone such as visiting a physician's office or shopping No 04/21/2019 8:22 PM Ronal De La Cruz III, MD No [facility] Mental Status Date Assessment Result Facility 04-21-2019 Because of a physica l, mental, or emotional condition, do you have serious difficulty concentrating, remembering, or making decisions No 04/21/2019 8:22 PM Ronal De La Cruz III, MD No [facility] Clinical Notes 07-16-2020 to 11-17-2024 Nadeem Mann - 11/17/2024 1:32 PM Dontae Hsieh MD - 11/17/2024 1:21 PM Apolinar Keys - 10/23/2024 10:38 AM Nita Dennison RN - 10/23/2024 10:18 AM EDTPatient Instructions Note Date & Type Note Facility 11-17-2024 Note HNO ID: [id number] Author: ?, ?, ? Service: ? Author [...] screening? N/A Last Colonoscopy: 2020 Nadeem Mann [facility] 11-17-2024 History of Present illness Narrative [...] 03/21/2018 Added automatically from request for surgery [id number] Elevated blood sugar 04/19/2022 Essential hypertension 01/22/2007 03/11/2019: Home BP Cuff Validated. Home BP: 118/58 Office BP: 128/72 GERD without esophagitis 03/21/2018 Added automatically from request for surgery [id number] H/O BCC skin cancer: other malignant neoplasm of skin 06/21/2010 History of colonic polyps 03/21/2018 Added automatically from request for surgery [id number] History of transfusion Impotence of organic origin [...] anticipated outcomes and possible complications were mentioned[facility] [...] of the plan and will coordinate with recruiting scheduler to arrange surgery date. My findings have been communicated to Dr. Ross Blandon MD via shared medical record. This note will be forwarded to Dr. Ross Blandon MD. Diagnoses: (K40.90) Left inguinal hernia (primary encounter diagnosis) Anticipated CPT Code: Initial anterior abdominal hernia repair: 05366 - 3-10 cm reducible Anticipated Anesthetic: MAC with local Patient weight: Blood pressure 133/71, pulse 68, resp. rate 16, weight 74.9 kg (165 lb 1.6 oz). BMI: Body mass index is 27.06 kg/m . 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 Author [...] 03/21/2018 Added automatically from request for surgery [id number] Elevated blood sugar 04/19/2022 Essential hypertension 01/22/2007 03/11/2019: Home BP Cuff Validated. Home BP: 118/58 Office BP: 128/72 GERD without esophagitis 03/21/2018 Added automatically from request for surgery [id number] H/O BCC skin cancer: other malignant neoplasm of skin 06/21/2010 History of colonic polyps 03/21/2018 Added automatically from request for surgery [id number] History of transfusion Impotence of organic origin [...] Father Prostate Can (more content not included)... [facility] 10-23-2024 Note HNO ID: [id number] Author: APOLINAR BLEVINS, ? Service: ? Author [...] RTC in 3-4 months. Apolinar Blevins DPM [facility] 10-23-2024 History of Present illness Narrative Subjective: Patient presents to clinic c/o painful toenails. They state that the nails are especially painful with shoe gear and pressure. Patient states that nails 1-5 b/l are painful. No other pedal complaints at this time. Patient states no change in medications or medical history since last visit. Objective: Patient presents to clinic ambulating in [facility] Vasc: DP and PT pulses are faintly [...] Patient: Nail care documented in this encounter [facility] 10-23-2024 Note HNO ID: [id number] Author: NITA TOVAR RN Service: ? Author Type: Registered Nurse Type: Progress Notes Filed: 10/23/2024 10:55 Note Text: Patient presents with: Left Foot - Established Patient: Nail care Right Foot - Established Patient: Nail care [facility] 10-13-2024 Note HNO ID: [id number] Author: TRAN YOUNG PA-C Service: ? Author Type: Physician Bar Captain Type: Progress Notes Filed: 10/13/2024 11:06 Note Text: Tran Young PA-C Department of Orthopaedics Orthopaedics [address] [facility] [address] Dept: [phone] Dept October 13, 2024 CHIEF COMPLAINT: Follow [...] these instructions. Informed Consent Consent Obtained: Verbal [place] Protocol A moment to CARE was completed. [...] specimen collected. Imaging: IMPRESSION: Osteoarthritis as described. Director Clinical Information Services: PSCB Transcribe Date/Time: Apr 30 2024 8:21P [...] * * P (more content not included)... [facility] 10-13-2024 History of Present illness Narrative Associated Order(s): Small Joint Arthro/Inj: R thumb [facility] Post-Procedure Diagnose(s): 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 Tran Young PA-C Department of Orthopaedics Orthopaedics [address] [facility] [address] Dept: [phone] Dept October 13, 2024 CHIEF COMPLAINT: Follow [...] these instructions. Informed Consent Consent Obtained: Verbal [place] Protocol A moment to CARE was completed. [...] specimen collected. Imaging: IMPRESSION: Osteoarthritis as described. Director Clinical Information Services: PAUL Transcribe Date/Time: Apr 30 2024 8:21P [...] AGE 5 YRS/> REDUCIBLE Right 12/08/2014 [place] [facility] SHOULDER ARTHROSCOPY/SURGERY Right 1988 SHOULDER ARTHROSCOPY/SURGERY [...] anxiety) This note was partially generated using [email or web address] voice recognition system, and there may be [...] See comment (none) documented in this encounter [facility] 10-13-2024 Note HNO ID: [id number] Author: TRINIDAD BROWNLEE MA Service: ? Author Type: Master Merchandiser Type: Progress Notes Filed: 10/13/2024 11:06 Note Text: AMB ROOMING INTAKE FLOWSHEET DATA Pain Pain Level: 5 Pain Location: Hand-Right Description: Sharp Duration Amount of Time: (ongoing) Frequency: Intermittent Intervention/Comfort measure: Other: See comment (none) [facility] 09-09-2024 Note HNO ID: [id number] Author: APOLINAR BLEVINS, ? Service: ? Author [...] 5.5 4.3 - 5.6 % Final Comment: [place] [employer] guidelines indicate that patients with [...] 03/21/2018 Added automatically from request for surgery [id number] Elevated blood sugar 04/19/2022 Essential hypertension 01/22/2007 03/11/2019: Home BP Cuff Validated. Home BP: 118/58 Office BP: 128/72 GERD without esophagitis 03/21/2018 Added automatically from request for surgery [id number] H/O BCC skin cancer: other malignant neoplasm of skin 06/21/2010 History of colonic polyps 03/21/2018 Added automatically from request for surgery [id number] History of transfusion Impotence of organic origin [...] evidence of distress. (more content not included)... [facility] 09-09-2024 History of Present illness Narrative [...] 5.5 4.3 - 5.6 % Final Comment: [place] [employer] guidelines indicate that patients with [...] 03/21/2018 Added automatically from request for surgery [id number] Elevated blood sugar 04/19/2022 Essential hypertension 01/22/2007 03/11/2019: Home BP Cuff Validated. Home BP: 118/58 Office BP: 128/72 GERD without esophagitis 03/21/2018 Added automatically from request for surgery [id number] H/O BCC skin cancer: other malignant neoplasm of skin 06/21/2010 History of colonic polyps 03/21/2018 Added automatically from request for surgery [id number] History of transfusion Impotence of organic origin [...] Mary Rand LPN documented in this encounter [facility] 09-02-2024 Instructions Apolinar Blevins - 09/02/2024 4:26 PM EDT Your toe is looking very well Continue with topical antibiotic and a band aide for the next 1 week or so until completely healed If you have any questions, please feel free to call me My cell number is [phone] documented in this encounter [facility] 09-02-2024 Note HNO ID: [id number] Author: MARY RAND LPN Service: ? Author Type: LICENSED NURSE Type: Progress Notes Filed: 09/09/2024 22:51 Note Text: AMB ROOMING INTAKE FLOWSHEET DATA Patient presents with: Right Great Toe - Established Patient, Follow Up, Ingrown Toenail: 2 week follow up procedure Left Great Toe - Established Patient, Follow Up, Ingrown Toenail: 2 week follow up procedure Mary Rand LPN [facility] 08-20-2024 Note HNO ID: [id number] Author: TERRI MORROW MA Service: ? Author Type: Master Merchandiser Type: Progress Notes Filed: 08/20/2024 10:26 Note [...] as well if you have any questions/concerns [phone], ask for Podiatry Nurse [facility] 08-20-2024 History of Present illness Narrative [...] as well if you have any questions/concerns [phone], ask for Podiatry Nurse Per Dr. Blevins [...] drainage. He is scheduled to go to [place] in 3 weeks. PAIN EVALUATION 08/20/2024 0905 Pain Level: 5 Pain Location: Toe Description: Sore Duration Amount of Time: 1 Duration Units: Months Frequency: Continuous Intervention/Comfort measure: Relaxation;Reposition Hemoglobin A1C Date Value Ref Range Status 04/22/2024 5.5 4.3 - 5.6 % Final Comment: [place] [employer] guidelines indicate that patients with [...] 03/21/2018 Added automatically from request for surgery [id number] Elevated blood sugar 04/19/2022 Essential hypertension 01/22/2007 03/11/2019: Home BP Cuff Validated. Home BP: 118/58 Office BP: 128/72 GERD without esophagitis 03/21/2018 Added automatically from request for surgery [id number] H/O BCC skin cancer: other malignant neoplasm of skin 06/21/2010 History of colonic polyps 03/21/2018 Added automatically from request for surgery [id number] History of transfusion Impotence of organic origin [...] AGE 5 YRS/> REDUCIBLE Right 12/08/2014 [place] [facility] SHOULDER ARTHROSCOPY/SURGERY Right 1988 SHOULDER ARTHROSCOPY/SURGERY [...] Mary Rand LPN documented in this encounter [facility] 08-20-2024 Note HNO ID: [id number] Author: TERRI MORROW MA Service: ? Author Type: Master Merchandiser Type: Progress Notes Filed: 08/20/2024 10:26 Note Text: Per Dr. Blevins, Andrew was provided with left hallux ingrown after procedure dressing wrap: Amerigel, non-adherent gauze and coband and instructed/educated in its application, wear, and care. All questions were answered, and patient was able to demonstrate competence with the necessary skills to utilize the above equipment. Terri Morrow MA [facility] 08-20-2024 Instructions Apolinar Blevins - 08/20/2024 [...] as well if you have any questions/concerns [phone], ask for Podiatry Nurse documented in this encounter [facility] 08-20-2024 Note HNO ID: [id number] Author: TERRI MORROW MA Service: ? Author Type: Master Merchandiser Type: Progress Notes Filed: 08/20/2024 10:26 Note [...] been communicated to the patient or surrogate. [facility] 08-20-2024 Note HNO ID: [id number] Author: APOLINAR BLEVINS, ? Service: ? Author [...] drainage. He is scheduled to go to [place] in 3 weeks. PAIN EVALUATION 08/20/2024 0905 Pain Level: 5 Pain Location: Toe Description: Sore Duration Amount of Time: 1 Duration Units: Months Frequency: Continuous Intervention/Comfort measure: Relaxation;Reposition Hemoglobin A1C Date Value Ref Range Status 04/22/2024 5.5 4.3 - 5.6 % Final Comment: [place] [employer] guidelines indicate that patients with [...] 03/21/2018 Added automatically from request for surgery [id number] Elevated blood sugar 04/19/2022 Essential hypertension 01/22/2007 03/11/2019: Home BP Cuff Validated. Home BP: 118/58 Office BP: 128/72 GERD without esophagitis 03/21/2018 Added automatically from request for surgery [id number] H/O BCC skin cancer: other malignant neoplasm of skin 06/21/2010 History of colonic polyps 03/21/2018 Added automatically from request for surgery [id number] History of transfusion Impotence of organic origin [...] 12/08/2014 [place] (more content not included)... [facility] 08-20-2024 Note HNO ID: [id number] Author: MARY RAND LPN Service: ? Author [...] Up, Ingrown Toenail, Pain Mary Rand LPN [facility] 08-18-2024 Telephone encounter Note Called and spoke with patient. Patient is scheduled for Sunday08/20/2024 at 9:15 in [place]. Mary Rand LPN [facility] Work Phone: 08-18-2024 Miscellaneous Notes Called and spoke with patient. Patient is scheduled for Sunday08/20/2024 at 9:15 in [place]. Mary Rand LPN Received a call from [...] nurse could give him a call back. [phone]. documented in this encounter [facility] 08-18-2024 Telephone encounter Note Received a call [...] nurse could give him a call back. [phone]. [facility] 08-04-2024 Note HNO ID: [id number] Author: TRAN YOUNG PA-C Service: ? Author Type: Physician Bar Captain Type: Progress Notes Filed: 08/04/2024 10:42 Note [...] these instructions. Informed Consent Consent Obtained: Verbal Conover Protocol A moment to CARE was completed. [...] the bedside nurse for hospitalized patients) applicable. [facility] 08-04-2024 History of Present illness Narrative [...] these instructions. Informed Consent Consent Obtained: Verbal Conover Protocol A moment to CARE was completed. [...] to discuss injection. documented in this encounter [facility] 08-04-2024 Note HNO ID: [id number] Author: RADHA DEE MA Service: ? Author Type: Master Merchandiser Type: Progress Notes Filed: 08/04/2024 10:42 Note [...] for the pain. Here to discuss injection. [facility] 07-14-2024 Note HNO ID: [id number] Author: APOLINAR BLEVINS, ? Service: ? Author [...] RTC in 3-4 months. Apolinar Blevins DPM [facility] 07-14-2024 History of Present illness Narrative [...] Mary Rand LPN documented in this encounter [facility] 07-14-2024 Note HNO ID: [id number] Author: TRAN YOUNG PA-C Service: ? Author Type: Physician Bar Captain Type: Progress Notes Filed: 07/14/2024 08:55 Note Text: Tran Young PA-C Department of Orthopaedics Orthopaedics [address] [facility] [address] Dept: [phone] Dept July 14, 2024 CHIEF COMPLAINT: Established [...] Bianka's test. Imaging: IMPRESSION: Osteoarthritis as described. Director Clinical Information Services: PAUL Transcribe Date/Time: Apr 30 2024 8:21P [...] SPARING ROBOT 1996 (more content not included)... [facility] 07-14-2024 History of Present illness Narrative Tran Young PA-C Department of Orthopaedics Orthopaedics [address] [facility] [address] Dept: [phone] Dept July 14, 2024 CHIEF COMPLAINT: Established [...] Bianka's test. Imaging: IMPRESSION: Osteoarthritis as described. Director Clinical Information Services: PAUL Transcribe Date/Time: Apr 30 2024 8:21P [...] AGE 5 YRS/> REDUCIBLE Right 12/08/2014 [place] [facility] SHOULDER ARTHROSCOPY/SURGERY Right 1988 SHOULDER ARTHROSCOPY/SURGERY [...] anxiety) This note was partially generated using [email or web address] voice recognition system, and there may be [...] brace is uncomfortable. documented in this encounter [facility] 07-14-2024 Note HNO ID: [id number] Author: MARY RAND LPN Service: ? Author Type: LICENSED NURSE Type: Progress Notes Filed: 07/14/2024 09:07 Note Text: AMB ROOMING INTAKE FLOWSHEET DATA Patient presents with: Left Foot - Established Patient, Follow Up, nail care Right Foot - Established Patient, Follow Up, nail care Mary Rand LPN [facility] 07-14-2024 Note HNO ID: [id number] Author: RADHA DEE MA Service: ? Author Type: Master Merchandiser Type: Progress Notes Filed: 07/14/2024 08:55 Note [...] for the pain. [facility] brace is uncomfortable. [facility] 06-11-2024 History of Present illness Narrative Program_ID:[id number] Access Code: [email or web address] URL: [email or web address] Date: 06-11-2024 Prepared By: Tereso Balbuena Program [...] Patient will report no falls. (Goal Met) [place] in home exercise program. (Goal Met) Patient [...] Tereso Balbuena PT documented in this encounter [facility] 06-11-2024 Note HNO ID: [id number] Author: TERESO BALBUENA PT Service: ? Author [...] Patient will report no falls. (Goal Met) [place] in home exercise program. (Goal Met) Patient [...] evidence of imba (more content not included)... [facility] 06-09-2024 Note HNO ID: [id number] Author: TERESO BALBUENA PT Service: ? Author [...] toward set goals. PLAN FOR NEXT VISIT: AL SUBJECTIVE: Pt reports that he is feeling pretty good today. Pt states that over the weekend he felt a little more unsteady. Pain: Pain Pain Level: 0 OBJECTIVE MEASURES WITH LEVEL OF FUNCTION: Improved confidence with balance exercises TREATMENT: Therapeutic Exercise: 1: Sci-Fit: x5 Min [place] for CV endurance. Level 2.5 (Direct 1:1 AND subjective taken.) 2: Cgm-rv-wipdy Justin Table: 3x10, 15#. 3: Calf Raises: [...] 1012 Irene Todd, DINA Balbuena, PT, DPT. [facility] 06-09-2024 History of Present illness Narrative [...] toward set goals. PLAN FOR NEXT VISIT: AL SUBJECTIVE: Pt reports that he is feeling pretty good today. Pt states that over the weekend he felt a little more unsteady. Pain: Pain Pain Level: 0 OBJECTIVE MEASURES WITH LEVEL OF FUNCTION: Improved confidence with balance exercises TREATMENT: Therapeutic Exercise: 1: Sci-Fit: x5 Min [place] for CV endurance. Level 2.5 (Direct 1:1 & subjective taken.) 2: Qjc-wd-ckevp Justin Table: 3x10, 15#. 3: Calf Raises: [...] Sheets, PT, DPT. documented in this encounter [facility] 05-29-2024 Note HNO ID: [id number] Author: TERESO BALBUENA PT Service: ? Author [...] SUBJECTIVE: No pain or anything new overall. Markle discouraged with foam beam walking. Off next week due to daughter coming to town. Pain: Pain Pain Level: 0 OBJECTIVE MEASURES WITH LEVEL OF FUNCTION: Able to navigate/step up onto the rocker board without issue or need of assistance. TREATMENT: Therapeutic Exercise: 1: Sci-Fit: x5 Min [place] for CV endurance. Level 2.0 (Direct 1:1 AND subjective taken.) 2: Xfb-gq-mxebx Justin Table: 3x10, 15#. 3: Lateral Hoist [...] back taps x20 each 4: Rocker Board, Ksvz-ba-mzlgx taps with feet straddling middle: 3x15 each [...] Stop Time : 1127 Tereso Balbuena PT [facility] 05-27-2024 Telephone encounter Note The following [...] empty stomach. Authorizing Provider: ROSS BLANDON MD [facility] 05-27-2024 Miscellaneous Notes The following approved medication [...] Bre Pérez RN documented in this encounter [facility] 05-27-2024 Note HNO ID: [id number] Author: TERESO BALBUENA PT Service: ? Author [...] 2.0 (Direct 1:1 AND subjective taken.) 2: Ook-kc-coxpe Justin Table: 3x10, 15#. Skilled Intervention: Patient [...] Stop Time : 1001 Irene Todd, DINA Balbuena, PT, DPT. [facility] 05-27-2024 History of Present illness Narrative [...] 2.0 (Direct 1:1 & subjective taken.) 2: Rrk-om-pxsdd Justin Table: 3x10, 15#. Skilled Intervention: Patient [...] Balbuena PT, DPT. documented in this encounter [facility] 05-27-2024 Telephone encounter Note Patient requesting scripts [...] on an empty stomach. Bre Pérez RN [facility] 05-26-2024 Telephone encounter Note Prescription Refill Information [...] Maldonado MA May 26, 2024 1:58 PM [facility] 05-26-2024 Miscellaneous Notes Prescription Refill Information The [...] 2024 1:58 PM documented in this encounter [facility] 05-22-2024 Note HNO ID: [id number] Author: TERESO BALBUENA PT Service: ? Author [...] 2.0 (Direct 1:1 AND subjective taken.) 2: Pxo-pg-omcdh Justin Table: 3x12, 15#. Skilled Intervention: Patient [...] Stop Time : 1124 Tereso Balbuena, PT [facility] 05-22-2024 History of Present illness Narrative [...] 2.0 (Direct 1:1 & subjective taken.) 2: Apm-by-yeolr Justin Table: 3x12, 15#. Skilled Intervention: Patient [...] Tereso Balbuena PT documented in this encounter [facility] 05-20-2024 Note HNO ID: [id number] Author: TERESO BALBUENA PT Service: ? Author [...] step ups on BOSU 2x10 B 4: Xvf-do-lzcyd 10# goblet holds.: 3x8. justin chair. Skilled [...] Irene Todd, DINA Tereso Balbuena, PT, DPT. [facility] 05-20-2024 History of Present illness Narrative [...] step ups on BOSU 2x10 B 4: Lqw-ep-rthks 10# goblet holds.: 3x8. justin chair. Skilled [...] Session Stop Time : 926 Irene Todd, HAT MENDER Tereso Balbuena PT, DPT. documented in this encounter [facility] 05-14-2024 Note HNO ID: [id number] Author: TERESO BALBUENA PT Service: ? Author [...] 3: 6-in LAT Arsenio: 2x10 each. 4: Wfa-er-nocgv 10#goblet holds.: 3x8. justin chair. Skilled Intervention: [...] Stop Time : 1210 Tereso Balbuena PT [facility] 05-14-2024 History of Present illness Narrative [...] 3: 6-in LAT Arsenio: 2x10 each. 4: Sfd-hq-vaomp 10#goblet holds.: 3x8. justin chair. Skilled Intervention: [...] Tereso Balbuena PT documented in this encounter [facility] 05-07-2024 Note HNO ID: [id number] Author: TERESO BALBUENA PT Service: ? Author [...] 2: 6-in FWD Arsenio: 3x10 each. 3: Spu-nb-vyhnt without use of hands.: 3x10. (Green Table [...] Stop Time : 823 Tereso Balbuena PT [facility] 05-07-2024 History of Present illness Narrative [...] 2: 6-in FWD Arsenio: 3x10 each. 3: Jnd-pq-byeck without use of hands.: 3x10. (Green Table [...] Tereso Balbuena PT documented in this encounter [facility] 05-05-2024 History of Present illness Narrative Program_ID:[id number] Access Code: [email or web address] URL: [email or web address] Date: 05-05-2024 Prepared By: Tereso Balbuena Program [...] established 05/05/24 Patient will report no falls. [place] in home exercise program. Patient will Improve [...] Planned: 8 Planned Treatment Interventions: Therapeutic exercise (44747), Neuromuscular re-education (40842), Manual therapy (26775), Therapeutic activities (11734), Self-assisted management (31231), Patient/Family/Caregiver Education, Gait Training (15788) PLAN FOR NEXT VISIT: Challenge Balance; Dynamic [...] Encouraged active lifestyle & walking program. 4: *Gak-mg-lhsxg without use of hands.: x10. 5: *B [...] Tereso Balbuena PT documented in this encounter [facility] 05-05-2024 Note HNO ID: [id number] Author: TERESO BALBUENA PT Service: ? Author [...] established 05/05/24 Patient will report no falls. [place] in home exercise program. Patient will Improve [...] Planned: 8 Planned Treatment Interventions: Therapeutic exercise (49264), Neuromuscular re-education (06743), Manual therapy (32615), Therapeutic activities (17034), Self-assisted management (98786), Patient/Family/Caregiver Education, Gait Training (51537) PLAN FOR NEXT VISIT: Challenge Balance; Dynamic [...] Better Phys F (more content not included)... [facility] 04-28-2024 Note HNO ID: [id number] Author: TRAN YOUNG PA-C Service: ? Author Type: Physician Bar Captain Type: Progress Notes Filed: 05/09/2024 09:03 Note Text: Tran Young PA-C Department of Orthopaedics Orthopaedics [address] [facility] [address] Dept: [phone] Dept April 28, 2024 CHIEF COMPLAINT: New [...] these instructions. Informed Consent Consent Obtained: Verbal Conover Protocol A moment to CARE was completed. [...] narrowing of the right first metacarpophalangeal joint Director Clinical Information Services: PAUL Transcribe Date/Time: Jul 07 2019 10:16A Dictated by : LILA PATE MD This examination was int (more content not included)... [facility] 04-28-2024 History of Present illness Narrative Associated Order(s): Small Joint Arthro/Inj: R thumb [facility] Post-Procedure Diagnose(s): 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 Tran Young PA-C Department of Orthopaedics Orthopaedics [address] [facility] [address] Dept: [phone] Dept April 28, 2024 CHIEF COMPLAINT: New [...] these instructions. Informed Consent Consent Obtained: Verbal Conover Protocol A moment to CARE was completed. [...] narrowing of the right first metacarpophalangeal joint Director Clinical Information Services: PSCB Transcribe Date/Time: Jul 07 2019 10:16A [...] AGE 5 YRS/> REDUCIBLE Right 12/08/2014 [place] [facility] SHOULDER ARTHROSCOPY/SURGERY Right 1988 SHOULDER ARTHROSCOPY/SURGERY [...] anxiety) This note was partially generated using [email or web address] voice recognition system, and there may be [...] his right thumb. 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 States his hand writing has gotten worse. Patient is right hand dominant. Tried Ibuprofen and Tylenol for the pain and does not help. X-rays done today. documented in this encounter [facility] 04-28-2024 Note HNO ID: [id number] Author: RADHA DEE MA Service: ? Author Type: Master Merchandiser Type: Progress Notes Filed: 04/30/2024 13:05 Note [...] his right thumb. 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 States his hand writing has gotten worse. Patient is right hand dominant. Tried Ibuprofen and Tylenol for the pain and does not help. X-rays done today. [facility] 04-24-2024 Telephone encounter Note Pt returned call and given provider's message below with verbalized understanding. [facility] 04-24-2024 Miscellaneous Notes Pt returned call and [...] UA were fine. documented in this encounter [facility] 04-24-2024 Telephone encounter Note Left message for pt to contact office. Pablo Cheney LPN [facility] 04-24-2024 Telephone encounter Note Let patient know his Trigs were slightly elevated at 202 (goal<150). His HDL and LDL were ok. Decreasing fat in the diet can help lower the Trigs some. The rest of his labs and UA were fine. [facility] 04-22-2024 Instructions Ross Blandon MD - 04/22/2024 [...] review all the medicines you take, even fpww-yns-pqsyfow medicines. As you get older, the way [...] certain medical conditions. documented in this encounter [facility] 04-22-2024 Note HNO ID: [id number] Author: ROSS BLANDON MD Service: ? Author [...] PCP - General (Family Medicine) Jennifer Kumar APRN.MANAGER BRAND as Steward/Stewardess Second Class (Family Medicine) Ally De PA-C as Steward/Stewardess Second Class (Family Medicine) Sebas: Urology optho Medical/Family history [...] 03/21/2018 Added automatically from request for surgery [id number] Elevated blood sugar 04/19/2022 Essential hypertension 01/22/2007 03/11/2019: Home BP Cuff Validated. Home BP: 118/58 Office BP: 128/72 GERD without esophagitis 03/21/2018 Added automatically from request for surgery [id number] H/O BCC skin cancer: other malignant neoplasm of skin 06/21/2010 History of colonic polyps 03/21/2018 Added automatically from request for surgery [id number] History of transfusion Impotence of organic origin [...] W/COLLJ SPEC WHEN (more content not included)... [facility] 04-22-2024 History of Present illness Narrative [...] General (Family Medicine) Jennifer Kumar APRN.SANKET as Steward/Stewardess Second Class (Family Medicine) Ally De PA-C as Steward/Stewardess Second Class (Family Medicine) Sebas: Urology optho Medical/Family history [...] 03/21/2018 Added automatically from request for surgery [id number] Elevated blood sugar 04/19/2022 Essential hypertension 01/22/2007 03/11/2019: Home BP Cuff Validated. Home BP: 118/58 Office BP: 128/72 GERD without esophagitis 03/21/2018 Added automatically from request for surgery [id number] H/O BCC skin cancer: other malignant neoplasm of skin 06/21/2010 History of colonic polyps 03/21/2018 Added automatically from request for surgery [id number] History of transfusion Impotence of organic origin [...] which included preparing to see the patient, xvoa-zy-cptk patient care, completing clinical documentation, performing a medically appropriate examination, counseling and educating the patient/family/caregiver and ordering medications, tests, or procedures. Ross Blandon MD error documented in this encounter [facility] 04-22-2024 Note HNO ID: [id number] Author: ROSS BLANDON MD Service: ? Author Type: Physician Type: Progress Notes Filed: 04/22/2024 13:12 Note Text: error [facility] 04-15-2024 Note HNO ID: [id number] Author: APOLINAR BLEVINS, ? Service: ? Author [...] RTC in 3-4 months. Apolinar Blevins DPM [facility] 04-15-2024 History of Present illness Narrative [...] Apolinar Blevins DPM documented in this encounter [facility] 01-14-2024 Note HNO ID: [id number] Author: APOLINAR BLEVINS, ? Service: ? Author [...] Objective: Patient presents to clinic ambulating in [facility] Vasc: DP and PT pulses are palpable [...] RTC in 3-4 months. Apolinar Blevins DPM [facility] 01-14-2024 History of Present illness Narrative Subjective: Patient presents to clinic c/o painful toenails. They state that the nails are especially painful with shoe gear and pressure. Patient states that nails 1-5 b/l are painful. No other pedal complaints at this time. Patient states no change in medications or medical history since last visit. Objective: Patient presents to clinic ambulating in [facility] Vasc: DP and PT pulses are palpable [...] Mary Rand LPN documented in this encounter [facility] 01-14-2024 Note HNO ID: [id number] Author: MARY RAND LPN Service: ? Author Type: LICENSED NURSE Type: Progress Notes Filed: 01/14/2024 09:51 Note Text: AMB ROOMING INTAKE FLOWSHEET DATA Patient presents with: Left Foot - Established Patient, Follow Up, nail care Right Foot - Established Patient, Follow Up, nail care Mary Rand LPN [facility] 01-04-2024 Telephone encounter Note Prescription Refill [...] Vaughan LPN January 04, 2024 8:41 AM [facility] 01-04-2024 Miscellaneous Notes Prescription Refill Information The [...] 2024 8:41 AM documented in this encounter [facility] 01-02-2024 Telephone encounter Note Prescription Refill Information [...] Cheney LPN January 02, 2024 11:20 AM [facility] 01-02-2024 Miscellaneous Notes Prescription Refill Information The [...] 2024 11:20 AM documented in this encounter [facility] 11-27-2023 Telephone encounter Note The patient has [...] Ruiz RN November 27, 2023 8:17 AM [facility] 11-27-2023 Miscellaneous Notes The patient has been [...] 2023 8:17 AM documented in this encounter [facility] 09-25-2023 History of Present illness Narrative Images from the original note were not included. [facility] EST PATIENT CLINIC NOTE Some elements copied from his previous note, which have been updated where appropriate, and all reflect current medical decision making from date of this visit. NAME: Andrew Peraza MD CHIEF COMPLAINT: Follow-Up HISTORY OF PRESENT ILLNESS: Andrew Peraza MD [...] to help PVR - 0ml LUTS: Urine [place]- not stricture given sporadic here and there [...] 03/21/2018 Added automatically from request for surgery [id number] Elevated blood sugar 04/19/2022 Essential hypertension 01/22/2007 03/11/2019: Home BP Cuff Validated. Home BP: 118/58 Office BP: 128/72 GERD without esophagitis 03/21/2018 Added automatically from request for surgery [id number] H/O BCC skin cancer: other malignant neoplasm of skin 06/21/2010 History of colonic polyps 03/21/2018 Added automatically from request for surgery [id number] History of transfusion Impotence of organic origin [...] Appointment with Al. documented in this encounter [facility] 09-10-2023 History of Present illness Narrative Subjective: [...] Mary Rand LPN documented in this encounter [facility] 07-26-2023 History of Present illness Narrative FOLLOW [...] 5.6 4.3 - 5.6 % Final Comment: [place] [employer] guidelines indicate that patients with [...] 03/21/2018 Added automatically from request for surgery [id number] Elevated blood sugar 04/19/2022 Essential hypertension 01/22/2007 03/11/2019: Home BP Cuff Validated. Home BP: 118/58 Office BP: 128/72 GERD without esophagitis 03/21/2018 Added automatically from request for surgery [id number] H/O BCC skin cancer: other malignant neoplasm of skin 06/21/2010 History of colonic polyps 03/21/2018 Added automatically from request for surgery [id number] History of transfusion Impotence of organic origin [...] Mary Rand LPN documented in this encounter [facility] 07-26-2023 Instructions Apolinar Blevins - 07/26/2023 1:12 PM EDT Your wound is progressing nicely Keep close watch on the toe for any redness or infection Can continue with soaking for another week or so and topical antibiotic as needed documented in this encounter [facility] 07-10-2023 Telephone encounter Note Pt called and is notified of providers message and instructions. Pt voices understanding. Laura Enciso RN [facility] 07-10-2023 Miscellaneous Notes Pt called and is [...] Fátima Mireles LPN. documented in this encounter [facility] 07-10-2023 Telephone encounter Note TC no answer. Left VM to return call to office. BEE Pearce [facility] 07-10-2023 Telephone encounter Note Let patient know his metoprolol was filled in Apr for 90 days with a refill. He should have a refill that he just needs to call the pharmacy to get. [facility] 07-10-2023 Telephone encounter Note Patient has been [...] Please advise. Thank you. Fátima Mireles LPN. [facility] 07-09-2023 Telephone encounter Note Pharmacist Refill Authorization [...] in this encounter: 0 Eron Rodrigez RPh [facility] 07-09-2023 Miscellaneous Notes Pharmacist Refill Authorization Review [...] Eron Rodrigez RPh documented in this encounter [facility] 07-09-2023 History of Present illness Narrative FOLLOW [...] 5.6 4.3 - 5.6 % Final Comment: [employer] guidelines indicate that patients with [...] 03/21/2018 Added automatically from request for surgery [id number] Elevated blood sugar 04/19/2022 Essential hypertension 01/22/2007 03/11/2019: Home BP Cuff Validated. Home BP: 118/58 Office BP: 128/72 GERD without esophagitis 03/21/2018 Added automatically from request for surgery [id number] H/O BCC skin cancer: other malignant neoplasm of skin 06/21/2010 History of colonic polyps 03/21/2018 Added automatically from request for surgery [id number] History of transfusion Impotence of organic origin [...] AGE 5 YRS/> REDUCIBLE Right 12/08/2014 [place] [facility] SHOULDER ARTHROSCOPY/SURGERY Right 1988 SHOULDER ARTHROSCOPY/SURGERY [...] palpable to right foot. Non-Invasive Vascular Laboratory [facility] Lower Extremity Arterial Physiology Study Bilateral/Complete Date [...] Normal at rest. Technologist: Porsche Parnell RVT, [facility] Ordering physician: APOLINAR BLEVINS Interpreting physician: EDDI [...] Mary Rand LPN documented in this encounter [facility] 07-09-2023 Instructions Mary Rand LPN - 07/09/2023 [...] as well if you have any questions/concerns [phone], ask for Podiatry Nurse documented in this encounter [facility] 06-14-2023 History of Present illness Narrative Subjective: [...] INTAKE FLOWSHEET DATA documented in this encounter [facility] 05-22-2023 Miscellaneous Notes Patient notified and voiced understanding. Patient indicated that he had the booster last month at [facility]. Domitila Maldonado MA Let patient know there is not a new COVID vaccine out yet. The CDC is recommending anyone who is 65 yrs of age or older to get a booster of the [id number] vaccine like the one he received back [...] Mee Gardner LPN documented in this encounter [facility] 04-20-2023 Instructions Ross Blandon MD - 04/20/2023 [...] review all the medicines you take, even woku-vea-lieivdm medicines. As you get older, the way [...] certain medical conditions. documented in this encounter [facility] 04-20-2023 History of Present illness Narrative Andrew [...] 03/21/2018 Added automatically from request for surgery [id number] Elevated blood sugar 04/19/2022 Essential hypertension 01/22/2007 03/11/2019: Home BP Cuff Validated. Home BP: 118/58 Office BP: 128/72 GERD without esophagitis 03/21/2018 Added automatically from request for surgery [id number] H/O BCC skin cancer: other malignant neoplasm of skin 06/21/2010 History of colonic polyps 03/21/2018 Added automatically from request for surgery [id number] History of transfusion Impotence of organic origin [...] Abs Lymph 1.00 - 4.00 k/uL 1.31 [place]% % 15.4 Abs [place] <0.87 k/uL 0.76 Eosin% % 3.4 Abs [...] Negative Ketones, Urine Negative Negative Negative Specific Ulm, Ur 1.005 - 1.030 1.026 1.023 Hemoglobin/Blood,Ur [...] which included preparing to see the patient, [id number] patient care, completing clinical documentation, performing a medically appropriate examination, counseling and educating the patient/family/caregiver and ordering medications, tests, or procedures. Ross Blandon MD documented in this encounter [facility] 04-16-2023 History of Present illness Narrative FOLLOW [...] 03/21/2018 Added automatically from request for surgery [id number] Elevated blood sugar 04/19/2022 Essential hypertension 01/22/2007 03/11/2019: Home BP Cuff Validated. Home BP: 118/58 Office BP: 128/72 GERD without esophagitis 03/21/2018 Added automatically from request for surgery [id number] H/O BCC skin cancer: other malignant neoplasm of skin 06/21/2010 History of colonic polyps 03/21/2018 Added automatically from request for surgery [id number] History of transfusion Impotence of organic origin [...] AGE 5 YRS/> REDUCIBLE Right 12/08/2014 [place] [facility] SHOULDER ARTHROSCOPY/SURGERY Right 1988 SHOULDER ARTHROSCOPY/SURGERY [...] unchanged from previous visit. Non-Invasive Vascular Laboratory [facility] Lower Extremity Arterial Physiology Study Bilateral/Complete Date [...] Normal at rest. Technologist: Porsche Parnell RVT, [facility] Ordering physician: APOLINAR BLEVINS Interpreting physician: EDDI [...] Swelling or drainage. documented in this encounter [facility] 04-11-2023 Miscellaneous Notes Pt calling in stating he has an appt with Dr. Blandon at the end of next week and needs orders placed for lab work. Per [facility], labs were placed last April and expected date was 04/06/23. Pt notified the orders are there and he can come in at anytime to get them drawn. Pt verbalizes understanding. documented in this encounter [facility] 12-26-2022 Miscellaneous Notes Images from the original note were not included. Al Mullen PA-C Minter, Danelle, RN; [facility] Urology Pool 18 hours ago (1:32 PM) [...] he is also going to send a Rewarder message. Nita Tovar RN documented in this encounter [facility] 12-12-2022 History of Present illness Narrative Images from the original note were not included. [facility] [...] 03/21/2018 Added automatically from request for surgery [id number] Elevated blood sugar 04/19/2022 Essential hypertension 01/22/2007 03/11/2019: Home BP Cuff Validated. Home BP: 118/58 Office BP: 128/72 GERD without esophagitis 03/21/2018 Added automatically from request for surgery [id number] H/O BCC skin cancer: other malignant neoplasm of skin 06/21/2010 History of colonic polyps 03/21/2018 Added automatically from request for surgery [id number] History of transfusion Impotence of organic origin [...] Friends and Family: Once a week Attends [employer]: Never Active Member of Clubs or [...] Negative Ketones, Urine Negative Trace, Negative Specific Ulm, Ur 1.021 1.005 - 1.030 Hemoglobin/Blood,Ur Negative [...] Appointment with Al. documented in this encounter [facility] 12-11-2022 Miscellaneous Notes Spoke with pt. States [...] 90 days supply. documented in this encounter [facility] 11-23-2022 History of Present illness Narrative Patient presents for Flu vaccine. Denies any problems at this time. Tolerated injection well. Lila Rowe LPN documented in this encounter [facility] 11-15-2022 History of Present illness Narrative Subjective: [...] Mary Rand LPN documented in this encounter [facility] 11-13-2022 Miscellaneous Notes Pharmacist Refill Authorization Review Name: Andrew Peraza MD Date: 11/13/2022 Time: 12:57 PM Refill authorization request(s) received and reviewed under effective consult agreement. Upon review, did confirm that an active patient-provider relationship exists and that the prescriber is a participating physician under the consult agreement. Last office visit in this department: 04/19/2022 Ross Blandon MD Last [facility] health visit in this department: Visit date [...] Laura Jones RPh documented in this encounter [facility] 11-07-2022 Miscellaneous Notes Pharmacist Refill Authorization Review Name: Andrew Peraza MD Date: 11/07/2022 Time: 5:01 PM Refill authorization request(s) received and reviewed under effective consult agreement. Upon review, did confirm that an active patient-provider relationship exists and that the prescriber is a participating physician under the consult agreement. Last office visit in this department: 04/19/2022 Ross Blandon MD Last [facility] health visit in this department: Visit date [...] Eron Rodrigez RPh documented in this encounter [facility] 09-18-2022 Miscellaneous Notes Called patient to reschedule. Patient accepted Nov 15 at 2:15. Mary Rand LPN Patient called. Verified name and date of . Patient received call that appointment for Nov 15, 2023 was cancelled and needs rescheduled. Please call patient to reschedule. Xiao Coyle LPN documented in this encounter [facility] 05-31-2022 History of Present illness Narrative Subjective: [...] 3rd Toe - Established Patient, Ingrown Toenail Mary Rand LPN documented in this encounter [facility] 04-10-2022 Miscellaneous Notes Patient notified and voiced understanding. Domitila Maldonado MA Let patient know non-fasting labs and urine orders placed. Pt called and reports he has an apt in the office on 04-19-22. Checking to see if he needs fasting lab work done. Please review and advise pt. Mee Gardner LPN documented in this encounter [facility] 04-03-2022 History of Present illness Narrative Images [...] 03/21/2018 Added automatically from request for surgery [id number] Essential hypertension 01/22/2007 03/11/2019: Home BP Cuff Validated. Home BP: 118/58 Office BP: 128/72 GERD without esophagitis 03/21/2018 Added automatically from request for surgery [id number] H/O BCC skin cancer: other malignant neoplasm of skin 06/21/2010 History of colonic polyps 03/21/2018 Added automatically from request for surgery [id number] History of transfusion Impotence of organic origin [...] Blevins DPM Podiatry [address] [facility] [address] Dept: [phone] Dept documented in this encounter [facility] 02-01-2022 Miscellaneous Notes Pt notified of Dr [...] Pt states he uses [facility] in [place], and is asking if provider could send in something stronger for him. Please call and advise. documented in this encounter [facility] 12-29-2021 History of Present illness Narrative Patient came in with complaints of dizziness fever vomiting. Patient says he has only had half a can of Coke and 1 popsicles since yesterday evening. At this time concern for possible dehydration. Patient was referred to the emergency room for labs and possible fluids. Patient was okay with this care plan documented in this encounter [facility] 10-07-2021 Miscellaneous Notes Patient notified and voiced understanding. Patient scheduled. Domitila Maldonado MA Let patient know lipid panel was ok with being off the lipitor. He needs his medicare/extensive visit (40 min) set up for on or after 04/18/2022 documented in this encounter [facility] 07-29-2021 Miscellaneous Notes Went to another fax machine and was able to fax report to [phone], Doris vasquez. Phoned Doris and aware can not get fax to go through either number again this morning. Patient can view results on his my chart, but [facility] can not view on [employer]. Doris will see what else can be done to get report. Doris from [facility] calling Dr Pierce had ordered carotid ultrasound and has not received results. Printed report and faxed to [phone]. Did not go. Phoned Doris and was given another fax number [phone]. Did not go again. Phoned and told her will try faxing again in the morning. documented in this encounter [facility] 07-19-2021 History of Present illness Narrative Patient presents for COVID booster. Denies any problems at this time. Tolerated injection well. Lila Rowe LPN documented in this encounter [facility] 09-16-2020 History of Past i llness Narrative Problem Noted Date Resolved Date Positive occult stool blood test 09/16/2020 09/16/2020 Chronic pain of right knee 06/22/201703/20 Right lumbar radiculitis 03/15/2017 019 Intervertebral disc disorder with radiculopathy of lumbar region 01/12/2017 03/20/2018 Overview: Added automatically from request for surgery [id number] Intervertebral disc stenosis of neural canal of lumbar region 01/12/2017 03/20/2018 Overview: Added automatically from request for surgery [id number] Right sided sciatica 12/07/2016 03/20/2018 Situational depression 11/24/2016 8 Arthritis of right knee 10/30/2016 11/01/19 17 Primary osteoarthritis of right knee 09/06/2016 10/31/2016 Overview: Added automatically from request for surgery [id number] Hip bursitis 04/19/2016 08/29/2016 Irritable bowel syndrome [...] of this encounter (statuses as of 06/23/2021) [facility] History of Past illness Narrative* Problem Noted Date Resolved Date Positive occult stool blood test 09/16/2020 09/16/2020 Chronic pain of right knee 06/22/201703/20 Right lumbar radiculitis 03/15/2017 019 Intervertebral disc disorder with radiculopathy of lumbar region 01/12/2017 03/20/2018 Overview: Added automatically from request for surgery [id number] Intervertebral disc stenosis of neural canal of lumbar region 01/12/2017 03/20/2018 Overview: Added automatically from request for surgery [id number] Right sided sciatica 12/07/2016 03/20/2018 Situational depression 11/24/2016 8 Arthritis of right knee 10/30/2016 11/01/19 17 Primary osteoarthritis of right knee 09/06/2016 10/31/2016 Overview: Added automatically from request for surgery [id number] Hip bursitis 04/19/2016 08/29/2016 Irritable bowel syndrome [...] of this encounter (statuses as of 07/19/2021) [facility] History of Past illness Narrative* Problem Noted Date Resolved Date Positive occult stool blood test 09/16/2020 09/16/2020 Chronic pain of right knee 06/22/201703/20 Right lumbar radiculitis 03/15/2017 019 Intervertebral disc disorder with radiculopathy of lumbar region 01/12/2017 03/20/2018 Overview: Added automatically from request for surgery [id number] Intervertebral disc stenosis of neural canal of lumbar region 01/12/2017 03/20/2018 Overview: Added automatically from request for surgery [id number] Right sided sciatica 12/07/2016 03/20/2018 Situational depression 11/24/2016 8 Arthritis of right knee 10/30/2016 11/01/19 17 Primary osteoarthritis of right knee 09/06/2016 10/31/2016 Overview: Added automatically from request for surgery [id number] Hip bursitis 04/19/2016 08/29/2016 Irritable bowel syndrome [...] of this encounter (statuses as of 07/29/2021) [facility] History of Past illness Narrative* Problem Noted Date Resolved Date Positive occult stool blood test 09/16/2020 09/16/2020 Chronic pain of right knee 06/22/201703/20 Right lumbar radiculitis 03/15/2017 019 Intervertebral disc disorder with radiculopathy of lumbar region 01/12/2017 03/20/2018 Overview: Added automatically from request for surgery [id number] Intervertebral disc stenosis of neural canal of lumbar region 01/12/2017 03/20/2018 Overview: Added automatically from request for surgery [id number] Right sided sciatica 12/07/2016 03/20/2018 Situational depression 11/24/2016 8 Arthritis of right knee 10/30/2016 11/01/19 17 Primary osteoarthritis of right knee 09/06/2016 10/31/2016 Overview: Added automatically from request for surgery [id number] Hip bursitis 04/19/2016 08/29/2016 Irritable bowel syndrome [...] of this encounter (statuses as of 10/07/2021) [facility] History of Past illness Narrative* Problem Noted Date Resolved Date Positive occult stool blood test 09/16/2020 09/16/2020 Chronic pain of right knee 06/22/201703/20 Right lumbar radiculitis 03/15/2017 019 Intervertebral disc disorder with radiculopathy of lumbar region 01/12/2017 03/20/2018 Overview: Added automatically from request for surgery [id number] Intervertebral disc stenosis of neural canal of lumbar region 01/12/2017 03/20/2018 Overview: Added automatically from request for surgery [id number] Right sided sciatica 12/07/2016 03/20/2018 Situational depression 11/24/2016 8 Arthritis of right knee 10/30/2016 11/01/19 17 Primary osteoarthritis of right knee 09/06/2016 10/31/2016 Overview: Added automatically from request for surgery [id number] Hip bursitis 04/19/2016 08/29/2016 Irritable bowel syndrome [...] of this encounter (statuses as of 12/24/2021) [facility] History of Past illness Narrative* Problem Noted Date Resolved Date Positive occult stool blood test 09/16/2020 09/16/2020 Chronic pain of right knee 06/22/201703/20 Right lumbar radiculitis 03/15/2017 019 Intervertebral disc disorder with radiculopathy of lumbar region 01/12/2017 03/20/2018 Overview: Added automatically from request for surgery [id number] Intervertebral disc stenosis of neural canal of lumbar region 01/12/2017 03/20/2018 Overview: Added automatically from request for surgery [id number] Right sided sciatica 12/07/2016 03/20/2018 Situational depression 11/24/2016 8 Arthritis of right knee 10/30/2016 11/01/19 17 Primary osteoarthritis of right knee 09/06/2016 10/31/2016 Overview: Added automatically from request for surgery [id number] Hip bursitis 04/19/2016 08/29/2016 Irritable bowel syndrome [...] of this encounter (statuses as of 12/29/2021) [facility] History of Past illness Narrative* Problem Noted Date Resolved Date Positive occult stool blood test 09/16/2020 09/16/2020 Chronic pain of right knee 06/22/201703/20 Right lumbar radiculitis 03/15/2017 019 Intervertebral disc disorder with radiculopathy of lumbar region 01/12/2017 03/20/2018 Overview: Added automatically from request for surgery [id number] Intervertebral disc stenosis of neural canal of lumbar region 01/12/2017 03/20/2018 Overview: Added automatically from request for surgery [id number] Right sided sciatica 12/07/2016 03/20/2018 Situational depression 11/24/2016 8 Arthritis of right knee 10/30/2016 11/01/19 17 Primary osteoarthritis of right knee 09/06/2016 10/31/2016 Overview: Added automatically from request for surgery [id number] Hip bursitis 04/19/2016 08/29/2016 Irritable bowel syndrome [...] of this encounter (statuses as of 02/01/2022) [facility] History of Past illness Narrative* Problem Noted Date Resolved Date Positive occult stool blood test 09/16/2020 09/16/2020 Chronic pain of right knee 06/22/201703/20 Right lumbar radiculitis 03/15/2017 019 Intervertebral disc disorder with radiculopathy of lumbar region 01/12/2017 03/20/2018 Overview: Added automatically from request for surgery [id number] Intervertebral disc stenosis of neural canal of lumbar region 01/12/2017 03/20/2018 Overview: Added automatically from request for surgery [id number] Right sided sciatica 12/07/2016 03/20/2018 Situational depression 11/24/2016 8 Arthritis of right knee 10/30/2016 11/01/19 17 Primary osteoarthritis of right knee 09/06/2016 10/31/2016 Overview: Added automatically from request for surgery [id number] Hip bursitis 04/19/2016 08/29/2016 Irritable bowel syndrome [...] of this encounter (statuses as of 04/03/2022) [facility] History of Past illness Narrative* Problem Noted Date Resolved Date Positive occult stool blood test 09/16/2020 09/16/2020 Chronic pain of right knee 06/22/201703/20 Right lumbar radiculitis 03/15/2017 019 Intervertebral disc disorder with radiculopathy of lumbar region 01/12/2017 03/20/2018 Overview: Added automatically from request for surgery [id number] Intervertebral disc stenosis of neural canal of lumbar region 01/12/2017 03/20/2018 Overview: Added automatically from request for surgery [id number] Right sided sciatica 12/07/2016 03/20/2018 Situational depression 11/24/2016 8 Arthritis of right knee 10/30/2016 11/01/19 17 Primary osteoarthritis of right knee 09/06/2016 10/31/2016 Overview: Added automatically from request for surgery [id number] Hip bursitis 04/19/2016 08/29/2016 Irritable bowel syndrome [...] of this encounter (statuses as of 04/11/2022) [facility] History of Past illness Narrative* Problem Noted Date Resolved Date Positive occult stool blood test 09/16/2020 09/16/2020 Chronic pain of right knee 06/22/201703/20 Right lumbar radiculitis 03/15/2017 019 Intervertebral disc disorder with radiculopathy of lumbar region 01/12/2017 03/20/2018 Overview: Added automatically from request for surgery [id number] Intervertebral disc stenosis of neural canal of lumbar region 01/12/2017 03/20/2018 Overview: Added automatically from request for surgery [id number] Right sided sciatica 12/07/2016 03/20/2018 Situational depression 11/24/2016 8 Arthritis of right knee 10/30/2016 11/01/19 17 Primary osteoarthritis of right knee 09/06/2016 10/31/2016 Overview: Added automatically from request for surgery [id number] Hip bursitis 04/19/2016 08/29/2016 Irritable bowel syndrome [...] of this encounter (statuses as of 05/31/2022) [facility] History of Past illness Narrative* Problem Noted Date Diagnosed Date Resolved Date Positive occult stool blood test 09/16/2020 09/16/2020 Chronic pain of right knee 06/22/2017 0 03/20/2018 Right lumbar radiculitis 03/15/2017 Intervertebral disc disorder with radiculopathy of lumbar region 01/12/2017 9 Overview: Added automatically from request for surgery [id number] Intervertebral disc stenosis of neural canal of lumbar region 01/12/2017 03/20/2018 Overview: Added automatically from request for surgery [id number] Right sided sciatica 12/07/2016 019 Situational depression 11/24/201603/14 Arthritis of right knee 10/30/201610/04 Primary osteoarthritis of right knee 09/06/2016 10/31/2016 Overview: Added automatically from request for surgery [id number] Hip bursitis 04/19/2016 08/29/2016 Irritable bowel syndrome [...] of this encounter (statuses as of 09/18/2022) [facility] History of Past illness Narrative* Problem Noted Date Diagnosed Date Resolved Date Positive occult stool blood test 09/16/2020 09/16/2020 Chronic pain of right knee 06/22/2017 0 03/20/2018 Right lumbar radiculitis 03/15/2017 Intervertebral disc disorder with radiculopathy of lumbar region 01/12/2017 9 Overview: Added automatically from request for surgery [id number] Intervertebral disc stenosis of neural canal of lumbar region 01/12/2017 03/20/2018 Overview: Added automatically from request for surgery [id number] Right sided sciatica 12/07/2016 019 Situational depression 11/24/201603/14 Arthritis of right knee 10/30/201610/04 Primary osteoarthritis of right knee 09/06/2016 10/31/2016 Overview: Added automatically from request for surgery [id number] Hip bursitis 04/19/2016 08/29/2016 Irritable bowel syndrome [...] of this encounter (statuses as of 11/08/2022) [facility] History of Past illness Narrative* Problem Noted Date Diagnosed Date Resolved Date Positive occult stool blood test 09/16/2020 09/16/2020 Chronic pain of right knee 06/22/2017 0 03/20/2018 Right lumbar radiculitis 03/15/2017 Intervertebral disc disorder with radiculopathy of lumbar region 01/12/2017 9 Overview: Added automatically from request for surgery [id number] Intervertebral disc stenosis of neural canal of lumbar region 01/12/2017 03/20/2018 Overview: Added automatically from request for surgery [id number] Right sided sciatica 12/07/2016 019 Situational depression 11/24/201603/14 Arthritis of right knee 10/30/201610/04 Primary osteoarthritis of right knee 09/06/2016 10/31/2016 Overview: Added automatically from request for surgery [id number] Hip bursitis 04/19/2016 08/29/2016 Irritable bowel syndrome [...] of this encounter (statuses as of 11/13/2022) [facility] History of Past illness Narrative* Problem Noted Date Diagnosed Date Resolved Date Positive occult stool blood test 09/16/2020 09/16/2020 Chronic pain of right knee 06/22/2017 0 03/20/2018 Right lumbar radiculitis 03/15/2017 Intervertebral disc disorder with radiculopathy of lumbar region 01/12/2017 9 Overview: Added automatically from request for surgery [id number] Intervertebral disc stenosis of neural canal of lumbar region 01/12/2017 03/20/2018 Overview: Added automatically from request for surgery [id number] Right sided sciatica 12/07/2016 019 Situational depression 11/24/201603/14 Arthritis of right knee 10/30/201610/04 Primary osteoarthritis of right knee 09/06/2016 10/31/2016 Overview: Added automatically from request for surgery [id number] Hip bursitis 04/19/2016 08/29/2016 Irritable bowel syndrome [...] of this encounter (statuses as of 11/16/2022) [facility] History of Past illness Narrative* Problem Noted Date Diagnosed Date Resolved Date Positive occult stool blood test 09/16/2020 09/16/2020 Chronic pain of right knee 06/22/2017 0 03/20/2018 Right lumbar radiculitis 03/15/2017 Intervertebral disc disorder with radiculopathy of lumbar region 01/12/2017 9 Overview: Added automatically from request for surgery [id number] Intervertebral disc stenosis of neural canal of lumbar region 01/12/2017 03/20/2018 Overview: Added automatically from request for surgery [id number] Right sided sciatica 12/07/2016 019 Situational depression 11/24/201603/14 Arthritis of right knee 10/30/201610/04 Primary osteoarthritis of right knee 09/06/2016 10/31/2016 Overview: Added automatically from request for surgery [id number] Hip bursitis 04/19/2016 08/29/2016 Irritable bowel syndrome [...] of this encounter (statuses as of 11/24/2022) [facility] History of Past illness Narrative* Problem Noted Date Diagnosed Date Resolved Date Positive occult stool blood test 09/16/2020 09/16/2020 Chronic pain of right knee 06/22/2017 0 03/20/2018 Right lumbar radiculitis 03/15/2017 Intervertebral disc disorder with radiculopathy of lumbar region 01/12/2017 9 Overview: Added automatically from request for surgery [id number] Intervertebral disc stenosis of neural canal of lumbar region 01/12/2017 03/20/2018 Overview: Added automatically from request for surgery [id number] Right sided sciatica 12/07/2016 019 Situational depression 11/24/201603/14 Arthritis of right knee 10/30/201610/04 Primary osteoarthritis of right knee 09/06/2016 10/31/2016 Overview: Added automatically from request for surgery [id number] Hip bursitis 04/19/2016 08/29/2016 Irritable bowel syndrome [...] of this encounter (statuses as of 12/12/2022) [facility] History of Past illness Narrative* Problem Noted Date Diagnosed Date Resolved Date Positive occult stool blood test 09/16/2020 09/16/2020 Chronic pain of right knee 06/22/2017 0 03/20/2018 Right lumbar radiculitis 03/15/2017 Intervertebral disc disorder with radiculopathy of lumbar region 01/12/2017 9 Overview: Added automatically from request for surgery [id number] Intervertebral disc stenosis of neural canal of lumbar region 01/12/2017 03/20/2018 Overview: Added automatically from request for surgery [id number] Right sided sciatica 12/07/2016 019 Situational depression 11/24/201603/14 Arthritis of right knee 10/30/201610/04 Primary osteoarthritis of right knee 09/06/2016 10/31/2016 Overview: Added automatically from request for surgery [id number] Hip bursitis 04/19/2016 08/29/2016 Irritable bowel syndrome [...] of this encounter (statuses as of 12/13/2022) [facility] [facility] History of Past illness Narrative* Problem Noted Date Diagnosed Date Resolved Date Positive occult stool blood test 09/16/2020 09/16/2020 Chronic pain of right knee 06/22/2017 0 03/20/2018 Right lumbar radiculitis 03/15/2017 Intervertebral disc disorder with radiculopathy of lumbar region 01/12/2017 9 Overview: Added automatically from request for surgery [id number] Intervertebral disc stenosis of neural canal of lumbar region 01/12/2017 03/20/2018 Overview: Added automatically from request for surgery [id number] Right sided sciatica 12/07/2016 019 Situational depression 11/24/201603/14 Arthritis of right knee 10/30/201610/04 Primary osteoarthritis of right knee 09/06/2016 10/31/2016 Overview: Added automatically from request for surgery [id number] Hip bursitis 04/19/2016 08/29/2016 Irritable bowel syndrome [...] of this encounter (statuses as of 12/26/2022) [facility] History of Past illness Narrative* Problem Noted Date Diagnosed Date Resolved Date Positive occult stool blood test 09/16/2020 09/16/2020 Chronic pain of right knee 06/22/2017 0 03/20/2018 Right lumbar radiculitis 03/15/2017 Intervertebral disc disorder with radiculopathy of lumbar region 01/12/2017 9 Overview: Added automatically from request for surgery [id number] Intervertebral disc stenosis of neural canal of lumbar region 01/12/2017 03/20/2018 Overview: Added automatically from request for surgery [id number] Right sided sciatica 12/07/2016 019 Situational depression 11/24/201603/14 Arthritis of right knee 10/30/201610/04 Primary osteoarthritis of right knee 09/06/2016 10/31/2016 Overview: Added automatically from request for surgery [id number] Hip bursitis 04/19/2016 08/29/2016 Irritable bowel syndrome [...] of this encounter (statuses as of 04/11/2023) [facility] History of Past illness Narrative* Problem Noted Date Diagnosed Date Resolved Date Positive occult stool blood test 09/16/2020 09/16/2020 Chronic pain of right knee 06/22/2017 0 03/20/2018 Right lumbar radiculitis 03/15/2017 Intervertebral disc disorder with radiculopathy of lumbar region 01/12/2017 9 Overview: Added automatically from request for surgery [id number] Intervertebral disc stenosis of neural canal of lumbar region 01/12/2017 03/20/2018 Overview: Added automatically from request for surgery [id number] Right sided sciatica 12/07/2016 019 Situational depression 11/24/201603/14 Arthritis of right knee 10/30/201610/04 Primary osteoarthritis of right knee 09/06/2016 10/31/2016 Overview: Added automatically from request for surgery [id number] Hip bursitis 04/19/2016 08/29/2016 Irritable bowel syndrome [...] of this encounter (statuses as of 04/17/2023) [facility] History of Past illness Narrative* Problem Noted Date Diagnosed Date Resolved Date Positive occult stool blood test 09/16/2020 09/16/2020 Chronic pain of right knee 06/22/2017 0 03/20/2018 Right lumbar radiculitis 03/15/2017 Intervertebral disc disorder with radiculopathy of lumbar region 01/12/2017 9 Overview: Added automatically from request for surgery [id number] Intervertebral disc stenosis of neural canal of lumbar region 01/12/2017 03/20/2018 Overview: Added automatically from request for surgery [id number] Right sided sciatica 12/07/2016 019 Situational depression 11/24/201603/14 Arthritis of right knee 10/30/201610/04 Primary osteoarthritis of right knee 09/06/2016 10/31/2016 Overview: Added automatically from request for surgery [id number] Hip bursitis 04/19/2016 08/29/2016 Irritable bowel syndrome [...] of this encounter (statuses as of 04/20/2023) [facility] History of Past illness Narrative* Problem Noted Date Diagnosed Date Resolved Date Positive occult stool blood test 09/16/2020 09/16/2020 Chronic pain of right knee 06/22/2017 0 03/20/2018 Right lumbar radiculitis 03/15/2017 Intervertebral disc disorder with radiculopathy of lumbar region 01/12/2017 9 Overview: Added automatically from request for surgery [id number] Intervertebral disc stenosis of neural canal of lumbar region 01/12/2017 03/20/2018 Overview: Added automatically from request for surgery [id number] Right sided sciatica 12/07/2016 019 Situational depression 11/24/201603/14 Arthritis of right knee 10/30/201610/04 Primary osteoarthritis of right knee 09/06/2016 10/31/2016 Overview: Added automatically from request for surgery [id number] Hip bursitis 04/19/2016 08/29/2016 Irritable bowel syndrome [...] of this encounter (statuses as of 05/22/2023) [facility] History of Past illness Narrative* Problem Noted Date Diagnosed Date Resolved Date Positive occult stool blood test 09/16/2020 09/16/2020 Chronic pain of right knee 06/22/2017 0 03/20/2018 Right lumbar radiculitis 03/15/2017 Intervertebral disc disorder with radiculopathy of lumbar region 01/12/2017 9 Overview: Added automatically from request for surgery [id number] Intervertebral disc stenosis of neural canal of lumbar region 01/12/2017 03/20/2018 Overview: Added automatically from request for surgery [id number] Right sided sciatica 12/07/2016 019 Situational depression 11/24/201603/14 Arthritis of right knee 10/30/201610/04 Primary osteoarthritis of right knee 09/06/2016 10/31/2016 Overview: Added automatically from request for surgery [id number] Hip bursitis 04/19/2016 08/29/2016 Irritable bowel syndrome [...] of this encounter (statuses as of 06/16/2023) [facility] Miscellaneous Notes* Telephone Encounter - Prema Gardner LPN - 07/16/2020 12:40 PM EDT Phone call placed updated patient new medications sent to [facility] at 12:00 07/16/20. Prema Gardner LPN * Telephone Encounter - Ross Blandon MD - 07/16/2020 12:00 PM EDT Let patient know new antibiotics sent to [facility]. The following approved medication requests have [...] phone patient with reply. [facility] Need for vaccination- Primary Need [...] of gait [facility] Diagnosis Balance problem- Primary Other symptoms involving nervous and musculoskeletal systems Abnormality of gait [facility] Balance problem- Primary Other symptoms involving nervous and musculoskeletal systems Abnormality of gait [facility] Diagnosis Balance problem- Primary Other symptoms involving nervous and musculoskeletal systems Abnormality of gait [facility] Diagnosis Balance problem- Primary Other symptoms involving nervous and musculoskeletal systems Abnormality of gait [facility]* Diagnosis Essential hypertension Unspecified essential hypertension [facility] Diagnosis Balance problem- Primary Other symptoms involving nervous and musculoskeletal systems Abnormality of gait [facility] Diagnosis Balance problem- Primary Other symptoms involving nervous and musculoskeletal systems Abnormality of gait [facility] Diagnosis Balance problem- Primary Other symptoms involving nervous and musculoskeletal systems Abnormality of gait [facility] Diagnosis 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- Primary Primary localized osteoarthrosis, hand MCP subluxation, sequela [facility] Diagnosis Onychomycosis- Primary Dermatophytosis of nail Pain in toe of right foot Pain in limb Pain in toe of left foot Pain in limb [facility]* Diagnosis Ingrowing toenail- Primary Ingrowing nail [facility] Diagnosis Open wound of toe, initial encounter- Primary [facility]* Diagnosis 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- Primary Primary localized osteoarthrosis, hand [facility] Diagnosis Onychomycosis- Primary Dermatophytosis of nail Pain in toe of right foot Pain in limb Pain in toe of left foot Pain in limb Ingrowing toenail Ingrowing nail [facility]* Diagnosis Left inguinal hernia- Primary Inguinal hernia without mention of obstruction or gangrene, unilateral or unspecified, (not specified as recurrent) documented in this encounter [facility] for referral (narrative)* Outpatient Procedure (Routine) - Authorized Specialty Diagnoses / Procedures Referred By Manny aguilar Referred To Contact [facility] Diagnoses Onychomycosis Diminished pulses in lower extremity Procedures PVR ANK PRESS GROVER VAS LAB NON-INVAS PHYSIOLOGIC STD EXTREMITY ART 2 LEVEL Apolinar Blevins [address] [place] [address] [facility] [place] [address] [place] [address] Referral ID Status Reason Start Date Expiration Date Visits Requested Visits Authorized [id number] Authorized Auto-Generat ed Referral 04/03/2022 04/03/2023 1 1 [facility] for visit Narrative* Diagnostic Procedure Only (Routine) - Closed Specialty Diagnoses / Procedures Referred By Manny aguilar Referred To Contact [facility] Diagnoses Right hand pain Procedures XR HAND GENERAL 3V PA/LAT/OBL RIGHT RADEX HAND MINIMUM 3 VIEWS Romel Queen MD [address] [place] [address] Phone: tel: fax: [place] [id number] Referral ID Status Reason Start Date Expiration Date V isits Requested Visits Authorized [id number] Closed Auto-Generate d Referral 04/16/2024 05/16/2025 1 1 [facility] Summary Purpose Family History No Family History Records FoundNo Family History Records FoundNo Family History Records Found Advance Directives No Advanced Directives Records FoundDocuments on File Type Date Recorded 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 [place] [address] / REHABILITATION SERVICES DISCHARGE SUMMARY MR#: [id number] Acct: [id number] Name: ANDREW PERAZA DR Rep #: [id number] : 1940 79 From: [place] E [place] [...] provide support for pinch tasks -. right clay grinder strength 30#. right lateral pinch 8#. right tripod pinch 8#. pt made improvements with ROM. Thearpy has ed. pt on HEP for strength and ROM and in sessi (more content not included)... Additional Source Comments (unrecognized sect ion and content) No Status Records FoundNo Status Records FoundNo Status Records Found INFORMATION SOURCE (unrecogn ized section and content) DATE CREATED AUTHOR 11/04/2019 [facility] DATE CREATED AUTHOR AUTHOR'S ORGANIZ ATION 11/17/2019 [facility] DATE CREATED AUTHOR AUTHOR'S ORGANIZ ATION 12/15/2024 [facility] Source Comments (unrecognize d section and content) In the event this informatio n is protected by the Federal Confidentiality of Alcohol and Drug Abuse Patient Records regulations: The Federal rules restrict any use of the information to criminally investigate or prosecute any alcohol or drug abuse patient.[facility] the event this information is protected by the Federal Confidentiality of Alcohol and Drug Abuse Patient Records regulations: The Federal rules restrict any use of the information to criminally investigate or prosecute any alcohol or drug abuse patient.[facility] the event this information is protected by the Federal Confidentiality of Alcohol and Drug Abuse Patient Records regulations: The Federal rules restrict any use of the information to criminally investigate or prosecute any alcohol or drug abuse patient.[facility] the event this information is protected by the Federal Confidentiality of Alcohol and Drug Abuse Patient Records regulations: The Federal rules restrict any use of the information to criminally investigate or prosecute any alcohol or drug abuse patient.[facility] the event this information is protected by the Federal Confidentiality of Alcohol and Drug Abuse Patient Records regulations: The Federal rules restrict any use of the information to criminally investigate or prosecute any alcohol or drug abuse patient.[facility] the event this information is protected by the Federal Confidentiality of Alcohol and Drug Abuse Patient Records regulations: The Federal rules restrict any use of the information to criminally investigate or prosecute any alcohol or drug abuse patient.[facility] the event this information is protected by the Federal Confidentiality of Alcohol and Drug Abuse Patient Records regulations: The Federal rules restrict any use of the information to criminally investigate or prosecute any alcohol or drug abuse patient.[facility] the event this information is protected by the Federal Confidentiality of Alcohol and Drug Abuse Patient Records regulations: The Federal rules restrict any use of the information to criminally investigate or prosecute any alcohol or drug abuse patient.[facility] the event this information is protected by the Federal Confidentiality of Alcohol and Drug Abuse Patient Records regulations: The Federal rules restrict any use of the information to criminally investigate or prosecute any alcohol or drug abuse patient.[facility] the event this information is protected by the Federal Confidentiality of Alcohol and Drug Abuse Patient Records regulations: The Federal rules restrict any use of the information to criminally investigate or prosecute any alcohol or drug abuse patient.[facility] the event this information is protected by the Federal Confidentiality of Alcohol and Drug Abuse Patient Records regulations: The Federal rules restrict any use of the information to criminally investigate or prosecute any alcohol or drug abuse patient.[facility] the event this information is protected by the Federal Confidentiality of Alcohol and Drug Abuse Patient Records regulations: The Federal rules restrict any use of the information to criminally investigate or prosecute any alcohol or drug abuse patient.[facility] the event this information is protected by the Federal Confidentiality of Alcohol and Drug Abuse Patient Records regulations: The Federal rules restrict any use of the information to criminally investigate or prosecute any alcohol or drug abuse patient.[facility] the event this information is protected by the Federal Confidentiality of Alcohol and Drug Abuse Patient Records regulations: The Federal rules restrict any use of the information to criminally investigate or prosecute any alcohol or drug abuse patient.[facility] the event this information is protected by the Federal Confidentiality of Alcohol and Drug Abuse Patient Records regulations: The Federal rules restrict any use of the information to criminally investigate or prosecute any alcohol or drug abuse patient.[facility] the event this information is protected by the Federal Confidentiality of Alcohol and Drug Abuse Patient Records regulations: The Federal rules restrict any use of the information to criminally investigate or prosecute any alcohol or drug abuse patient.[facility] the event this information is protected by the Federal Confidentiality of Alcohol and Drug Abuse Patient Records regulations: The Federal rules restrict any use of the information to criminally investigate or prosecute any alcohol or drug abuse patient.[facility]In the event this information is protected by the Federal Confidentiality of Alcohol and Drug Abuse Patient Records regulations: The Federal rules restrict any use of the information to criminally investigate or prosecute any alcohol or drug abuse patient.[facility] the event this information is protected by the Federal Confidentiality of Alcohol and Drug Abuse Patient Records regulations: The Federal rules restrict any use of the information to criminally investigate or prosecute any alcohol or drug abuse patient.[facility]In the event this information is protected by the Federal Confidentiality of Alcohol and Drug Abuse Patient Records regulations: The Federal rules restrict any use of the information to criminally investigate or prosecute any alcohol or drug abuse patient.[facility]In the event this information is protected by the Federal Confidentiality of Alcohol and Drug Abuse Patient Records regulations: The Federal rules restrict any use of the information to criminally investigate or prosecute any alcohol or drug abuse patient.[facility]In the event this information is protected by the Federal Confidentiality of Alcohol and Drug Abuse Patient Records regulations: The Federal rules restrict any use of the information to criminally investigate or prosecute any alcohol or drug abuse patient.[facility] the event this information is protected by the Federal Confidentiality of Alcohol and Drug Abuse Patient Records regulations: The Federal rules restrict any use of the information to criminally investigate or prosecute any alcohol or drug abuse patient.[facility] the event this information is protected by the Federal Confidentiality of Alcohol and Drug Abuse Patient Records regulations: The Federal rules restrict any use of the information to criminally investigate or prosecute any alcohol or drug abuse patient.[facility] the event this information is protected by the Federal Confidentiality of Alcohol and Drug Abuse Patient Records regulations: The Federal rules restrict any use of the information to criminally investigate or prosecute any alcohol or drug abuse patient.[facility] the event this information is protected by the Federal Confidentiality of Alcohol and Drug Abuse Patient Records regulations: The Federal rules restrict any use of the information to criminally investigate or prosecute any alcohol or drug abuse patient.[facility]In the event this information is protected by the Federal Confidentiality of Alcohol and Drug Abuse Patient Records regulations: The Federal rules restrict any use of the information to criminally investigate or prosecute any alcohol or drug abuse patient.[facility]In the event this information is protected by the Federal Confidentiality of Alcohol and Drug Abuse Patient Records regulations: The Federal rules restrict any use of the information to criminally investigate or prosecute any alcohol or drug abuse patient.[facility]In the event this information is protected by the Federal Confidentiality of Alcohol and Drug Abuse Patient Records regulations: The Federal rules restrict any use of the information to criminally investigate or prosecute any alcohol or drug abuse patient.[facility] the event this information is protected by the Federal Confidentiality of Alcohol and Drug Abuse Patient Records regulations: The Federal rules restrict any use of the information to criminally investigate or prosecute any alcohol or drug abuse patient.[facility]In the event this information is protected by the Federal Confidentiality of Alcohol and Drug Abuse Patient Records regulations: The Federal rules restrict any use of the information to criminally investigate or prosecute any alcohol or drug abuse patient.[facility] the event this information is protected by the Federal Confidentiality of Alcohol and Drug Abuse Patient Records regulations: The Federal rules restrict any use of the information to criminally investigate or prosecute any alcohol or drug abuse patient.[facility]In the event this information is protected by the Federal Confidentiality of Alcohol and Drug Abuse Patient Records regulations: The Federal rules restrict any use of the information to criminally investigate or prosecute any alcohol or drug abuse patient.[facility]In the event this information is protected by the Federal Confidentiality of Alcohol and Drug Abuse Patient Records regulations: The Federal rules restrict any use of the information to criminally investigate or prosecute any alcohol or drug abuse patient.[facility]In the event this information is protected by the Federal Confidentiality of Alcohol and Drug Abuse Patient Records regulations: The Federal rules restrict any use of the information to criminally investigate or prosecute any alcohol or drug abuse patient.[facility]In the event this information is protected by the Federal Confidentiality of Alcohol and Drug Abuse Patient Records regulations: The Federal rules restrict any use of the information to criminally investigate or prosecute any alcohol or drug abuse patient.[facility]In the event this information is protected by the Federal Confidentiality of Alcohol and Drug Abuse Patient Records regulations: The Federal rules restrict any use of the information to criminally investigate or prosecute any alcohol or drug abuse patient.[facility]In the event this information is protected by the Federal Confidentiality of Alcohol and Drug Abuse Patient Records regulations: The Federal rules restrict any use of the information to criminally investigate or prosecute any alcohol or drug abuse patient.[facility]In the event this information is protected by the Federal Confidentiality of Alcohol and Drug Abuse Patient Records regulations: The Federal rules restrict any use of the information to criminally investigate or prosecute any alcohol or drug abuse patient.[facility]In the event this information is protected by the Federal Confidentiality of Alcohol and Drug Abuse Patient Records regulations: The Federal rules restrict any use of the information to criminally investigate or prosecute any alcohol or drug abuse patient.[facility]In the event this information is protected by the Federal Confidentiality of Alcohol and Drug Abuse Patient Records regulations: The Federal rules restrict any use of the information to criminally investigate or prosecute any alcohol or drug abuse patient.[facility]In the event this information is protected by the Federal Confidentiality of Alcohol and Drug Abuse Patient Records regulations: The Federal rules restrict any use of the information to criminally investigate or prosecute any alcohol or drug abuse patient.[facility]In the event this information is protected by the Federal Confidentiality of Alcohol and Drug Abuse Patient Records regulations: The Federal rules restrict any use of the information to criminally investigate or prosecute any alcohol or drug abuse patient.[facility]In the event this information is protected by the Federal Confidentiality of Alcohol and Drug Abuse Patient Records regulations: The Federal rules restrict any use of the information to criminally investigate or prosecute any alcohol or drug abuse patient.[facility] DaytonIn the event this information is protected by the Federal Confidentiality of Alcohol and Drug Abuse Patient Records regulations: The Federal rules restrict any use of the information to criminally investigate or prosecute any alcohol or drug abuse patient.[facility] DaytonIn the event this information is protected by the Federal Confidentiality of Alcohol and Drug Abuse Patient Records regulations: The Federal rules restrict any use of the information to criminally investigate or prosecute any alcohol or drug abuse patient.[facility] DaytonIn the event this information is protected by the Federal Confidentiality of Alcohol and Drug Abuse Patient Records regulations: The Federal rules restrict any use of the information to criminally investigate or prosecute any alcohol or drug abuse patient.[facility] DaytonIn the event this information is protected by the Federal Confidentiality of Alcohol and Drug Abuse Patient Records regulations: The Federal rules restrict any use of the information to criminally investigate or prosecute any alcohol or drug abuse patient.[facility] DaytonIn the event this information is protected by the Federal Confidentiality of Alcohol and Drug Abuse Patient Records regulations: The Federal rules restrict any use of the information to criminally investigate or prosecute any alcohol or drug abuse patient.[facility] DaytonIn the event this information is protected by the Federal Confidentiality of Alcohol and Drug Abuse Patient Records regulations: The Federal rules restrict any use of the information to criminally investigate or prosecute any alcohol or drug abuse patient.[facility] DaytonIn the event this information is protected by the Federal Confidentiality of Alcohol and Drug Abuse Patient Records regulations: The Federal rules restrict any use of the information to criminally investigate or prosecute any alcohol or drug abuse patient.[facility] DaytonIn the event this information is protected by the Federal Confidentiality of Alcohol and Drug Abuse Patient Records regulations: The Federal rules restrict any use of the information to criminally investigate or prosecute any alcohol or drug abuse patient.[facility] DaytonIn the event this information is protected by the Federal Confidentiality of Alcohol and Drug Abuse Patient Records regulations: The Federal rules restrict any use of the information to criminally investigate or prosecute any alcohol or drug abuse patient.[facility] DaytonIn the event this information is protected by the Federal Confidentiality of Alcohol and Drug Abuse Patient Records regulations: The Federal rules restrict any use of the information to criminally investigate or prosecute any alcohol or drug abuse patient.[facility] DaytonIn the event this information is protected by the Federal Confidentiality of Alcohol and Drug Abuse Patient Records regulations: The Federal rules restrict any use of the information to criminally investigate or prosecute any alcohol or drug abuse patient.[facility] DaytonIn the event this information is protected by the Federal Confidentiality of Alcohol and Drug Abuse Patient Records regulations: The Federal rules restrict any use of the information to criminally investigate or prosecute any alcohol or drug abuse patient.[facility] DaytonIn the event this information is protected by the Federal Confidentiality of Alcohol and Drug Abuse Patient Records regulations: The Federal rules restrict any use of the information to criminally investigate or prosecute any alcohol or drug abuse patient.[facility] DaytonIn the event this information is protected by the Federal Confidentiality of Alcohol and Drug Abuse Patient Records regulations: The Federal rules restrict any use of the information to criminally investigate or prosecute any alcohol or drug abuse patient.[facility] Reason for Visit (unrecogniz ed section and content) Reason Comments PT Discharge Specialty Diagnoses / Procedures Referred By Contac t Referred To Contact [facility] Diagnoses Balance problem Abnormality of gait Procedures CONSULT TO PHYSICAL THERAPY PHYSICAL THERAPY EVALUATION HIGH COMPLEX 45 MINS Ross Blandon MD [address] [place] [address] Phone: tel: fax: [facility] [address] [place] [address] Referral ID Status Reason Start Date Expiration Date Visits Requested Visits Authorized [id number] Authorized PCP Requested Referral Auto-Generate d Referral 04/22/2024 04/22/2025 99 99 Reason Comments Physical Therapy Reason Comments Medication issue Reason Comments Imm/Inj Reason Comments [facility] requesting records Reason Comments Results Reason Comments [...] HIGH MDM 60-74 MINUTES Ally De PA-C [address] [place] [address] Referral ID Status Reason Start Date Expiration Date V isits Requested Visits Authorized [id number] Closed PCP Requested Referral 12/08/2022 12/08/2023 1 [...] Care Teams (unrecognized sec tion and content) Bingo Attendant Relationship Specialty Start Date End Date Ross Blandon MD [address] [place] [address] PCP - General Family Practice 07/14/20 Bingo Attendant Relationship Specialty Start Date End Date Ross Blandon MD [address] [place] [address] PCP - General Family Practice 07/14/20 Bingo Attendant Relationship Specialty Start Date End Date Ross Blandon MD [address] [place] [address] PCP - General Family Practice 07/14/20 Bingo Attendant Relationship Specialty Start Date End Date Ross Blandon MD [address] [place] [address] PCP - General Family Practice 07/14/20 Bingo Attendant Relationship Specialty Start Date End Date Ross Blandon MD [address] [facility] [place] [address] PCP - General Family Medicine 07/14/20 Bingo Attendant Relationship Specialty Start Date End Date Ross Blandon MD [address] [facility] [place] [address] PCP - General Family Medicine 07/14/20 Bingo Attendant Relationship Specialty Start Date End Date Ross Blandon MD [address] [facility] [place] [address] PCP - General Family Medicine 07/14/20 Bingo Attendant Relationship Specialty Start Date End Date Ross Blandon MD [address] [facility] [place] [address] PCP - General Family Medicine 07/14/20 Bingo Attendant Relationship Specialty Start Date End Date Ross Blandon MD [address] [facility] [place] [address] PCP - General Family Medicine 07/14/20 Bingo Attendant Relationship Specialty Start Date End Date Ross Blandon MD [address] [facility] [place] [address] PCP - General Family Medicine 07/14/20 Bingo Attendant Relationship Specialty Start Date End Date Ross Blandon MD [address] [facility] [place] [address] PCP - General Family Medicine 07/14/20 Bingo Attendant Relationship Specialty Start Date End Date Ross Blandon MD [address] [facility] [place] [address] PCP - General Family Medicine 07/14/20 Bingo Attendant Relationship Specialty Start Date End Date Ross Blandon MD [address] [place] [address] PCP - General Family Medicine 07/14/20 Bingo Attendant Relationship Specialty Start Date End Date Ross Blandon MD [address] [place] [address] PCP - General Family Medicine 07/14/20 Bingo Attendant Relationship Specialty Start Date End Date Ross Blandon MD [address] [place] [address] PCP - General Family Medicine 07/14/20 Bingo Attendant Relationship Specialty Start Date End Date Ross Blandon MD [address] [place] [address] PCP - General Family Medicine 07/14/20 Bingo Attendant Relationship Specialty [place] [address] [place] [address] PCP - General Family Medicine 07/14/20 Bingo Attendant Relationship Specialty Start Date End Date Ross Blandon MD [address] [place] [address] PCP - General Family Medicine 07/14/20 Bingo Attendant Relationship Specialty Start Date End Date Ross Blandon MD [address] [place] [address] PCP - General Family Medicine 07/14/20 Bingo Attendant Relationship Specialty Start Date End Date Ross Blandon MD [address] [place] [address] PCP - General Family Medicine 07/14/20 Bingo Attendant Relationship Specialty Start Date End Date Ross Blandon MD [address] [facility] [place] [address] PCP - General Family Medicine 07/14/20 Bingo Attendant Relationship Specialty Start Date End Date Ross Blandon MD [address] [facility] [place] [address] PCP - General Family Medicine 07/14/20 Bingo Attendant Relationship Specialty Start Date End Date Ross Blandon MD [address] [facility] [place] [address] PCP - General Family Medicine 07/14/20 Bingo Attendant Relationship Specialty Start Date End Date Ross Blandon MD [address] [place] [address] PCP - General Family Medicine 07/14/20 Jennifer Kumar, SHIPPING CLERK PACKING.MANAGER BRAND [address] [place] [address] [facility] 02/09/24 Ally De PA-C [address] [place] [address] [facility] 02/09/24 Bingo Attendant Relationship Specialty Start Date End Date Ross Blandon MD [address] [place] [address] PCP - General Family Medicine 07/14/20 Jennifer Kumar, SHIPPING CLERK PACKING.MANAGER BRAND [address] [facility] [place] [address] [facility] 02/09/24 Ally De PA-C [address] [place] [address] [facility] 02/09/24 Bingo Attendant Relationship Specialty Start Date End Date Ross Blandon MD [address] [place] [address] PCP - General Family Medicine 07/14/20 Jennifer Kumar, ABY.MANAGER BRAND [address] [place] [address] [facility] 02/09/24 Ally De PA-C [address] [place] [address] [facility] 02/09/24 Bingo Attendant Relationship Specialty Start Date End Date Ross Blandon MD [address] [place] [address] PCP - General Family Medicine 07/14/20 Jennfier Kumar, ABY.MANAGER BRAND [address] [place] [address] [facility] 02/09/24 Ally De PA-C [address] [place] [address] [facility] 02/09/24 Bingo Attendant Relationship Specialty Start Date End Date Ross Blandon MD [address] [place] [address] PCP - General Family Medicine 07/14/20 Jennifer Kumar, SHIPPING CLERK PACKING.MANAGER BRAND [address] [place] [address] [facility] 02/09/24 Ally De PA-C [address] [place] [address] [facility] 02/09/24 Bingo Attendant Relationship Specialty Start Date End Date Ross Blandon MD [address] [place] [address] PCP - General Family Medicine 07/14/20 Jennifer Kumar APRN.MANAGER BRAND [address] [place] [address] [facility] 02/09/24 Ally De PA-C [address] [place] [address] [facility] 02/09/24 Bingo Attendant Relationship Specialty Start Date End Date Ross Blandon MD [address] [place] [address] PCP - General Family Medicine 07/14/20 Jennifer Kumar, ABY.MANAGER BRAND [address] [place] [address] [facility] 02/09/24 Ally De PA-C [address] [place] [address] [facility]/24 Bingo Attendant Relationship Specialty Start Date End Date Ross Blandon MD [address] [place] [address] PCP - General Family Medicine 07/14/20 Jennifer Kumar, SHIPPING CLERK PACKING.MANAGER BRAND [address] [place] [address] [facility] 02/09/24 Ally De PA-C [address] [place] [address] [facility] 02/09/24 Bingo Attendant Relationship Specialty Start Date End Date Ross Blandon MD [address] [place] [address] PCP - General Family Medicine 07/14/20 Jennifer Kumar APRN.MANAGER BRAND [address] [place] [address] [facility] 02/09/24 Ally De PA-C [address] [place] [address] [facility] 02/09/24 Bingo Attendant Relationship Specialty Start Date End Date Ross Blandon MD [address] [place] [address] PCP - General Family Medicine 07/14/20 Jennifer Kumar, ABY.MANAGER BRAND [address] [place] [address] [facility] 02/09/24 Ally De PA-C [address] [place] [address] [facility] 02/09/24 Bingo Attendant Relationship Specialty Start Date End Date Ross Blandon MD [address] [place] [address] PCP - General Family Medicine 07/14/20 Jennifer Kumra, ABY.MANAGER BRAND [address] [place] [address] [facility] 02/09/24 Ally De PA-C [address] [place] [address] [facility] Bingo Attendant Relationship Specialty Start Date End Date Ross Blandon MD [address] [place] [address] PCP - General Family Medicine 06/09/24 Jennifer Kmuar APRN.MANAGER BRAND [address] [place] [address] [facility] 02/09/24 Ally De PA-C [address] [place] [address] [facility] 02/09/24 Bingo Attendant Relationship Specialty Start Date End Date Ross Blandon MD [address] [place] [address] PCP - General Family Medicine 06/09/24 Jennifer Kumar, SHIPPING CLERK PACKING.MANAGER BRAND [address] [place] [address] [facility] 02/09/24 Ally De PA-C [address] [place] [address] [facility] 02/09/24 Bingo Attendant Relationship Specialty Start Date End Date Ross Blandon MD [address] [place] [address] PCP - General Family Medicine 06/09/24 Jennifer Kumar APRN.MANAGER BRAND [address] [place] [address] [facility] 02/09/24 Ally De PA-C [address] [place] [address] [facility] 02/09/24 Bingo Attendant Relationship Specialty Start Date End Date Ross Blandon MD [address] [place] [address] PCP - General Family Medicine 06/09/24 Jennifer Kumar APRN.MANAGER BRAND [address] [place] [address] [facility] 08/04/24 Ally De PA-C [facility] [place] [address] [facility] 08/04/24 Bingo Attendant Relationship Specialty Start Date End Date Ross Blandon MD [address] [place] [address] PCP - General Family Medicine 06/09/24 Jennifer Kumar APRN.MANAGER BRAND [facility] [place] [address] [facility] 08/04/24 Ally De PA-C [address] [place] [address] [facility] 08/04/24 Bingo Attendant Relationship Specialty Start Date End Date Ross Blandon MD [address] [place] [address] PCP - General Family Medicine 06/09/24 Jennifer Kumar, ABY.MANAGER BRAND [address] [place] [address] [facility] 08/04/24 Ally De PA-C [address] [place] [address] [facility] 08/04/24 Bingo Attendant Relationship Specialty Start Date End Date Ross Blandon MD [address] [place] [address] PCP - General Family Medicine 06/09/24 Jennifer Kumar, SHIPPING CLERK PACKING.MANAGER BRAND [address] [place] [address] [facility] 08/04/24 Ally De PA-C [address] [place] [address] [facility] 08/04/24 Bingo Attendant Relationship Specialty Start Date End Date Ross Blandon MD [address] [place] [address] PCP - General Family Medicine 06/09/24 Jennifer Kumar, SHIPPING CLERK PACKING.MANAGER BRAND [address] [place] [address] [facility] 08/04/24 Ally De PA-C [address] [place] [address] [facility] 08/04/24 Bingo Attendant Relationship Specialty Start Date End Date Ross Blandon MD [address] [place] [id number] PCP - General Family Medicine 06/09/24 Jennifer Kumar APRN.CNP [address] [place] [id number] [facility] 08/04/24 Ally De PA-C [address] [place], [place] [address] [facility] 08/04/24 FOR RECORDS PERTAINING TO PATIENTS [...] BE BASED ON THE PRIMARY CLINICAL RECORDS. [employer] provides no warranty or guarantee of the accuracy or completeness of information in this document.
[2024-12-27 20:56] LABS: Troponin T High Sens 2 HR 23 ng/L (<=22)
[2024-12-27 20:57] LABS: Alcohol, Blood (Medical)-Serum < 10.1 mg/dL (<=10.0)
--- NOTE | 2024-12-27 21:09 | RAD_ITS ---
PROCEDURE: CHEST 1 VIEW (PORTABLE) 12/27/2024 REASON FOR EXAM: FEVER TECHNIQUE: Frontal view of the chest. COMPARISON: None available. FINDINGS: Hardware: None. Heart: The heart size is normal. Lungs: The lungs are clear. No pneumothorax or pleural effusion. Bones: Degenerative changes are identified within the thoracic spine. RAD/Chest 1 View (Portable) IMPRESSION: No Acute Findings. Reading [facility]
--- NOTE | 2024-12-27 21:09 | CT_ITS ---
PROCEDURE: ABDOMEN/PELVIS WITHOUT CONT 12/27/2024 REASON FOR EXAM: FEVER TECHNIQUE: Procedure Code: CTABDPEL Modality: CT Procedure: ABDOMEN/PELVIS WITHOUT CONT Noncontrast technique limits evaluation of the abdominal and pelvic viscera. Coronal and Sagittal reconstruction series were provided. One or more dose reduction techniques were used (e.g., Automated exposure control, adjustment of the mA and/or kV according to patient size, use of iterative reconstruction technique). COMPARISON: None available. FINDINGS: Lung bases: Mild dependent atelectasis Liver: Normal size. No obvious mass. Gallbladder: Unremarkable. No biliary ductal dilatation. Spleen: Normal size. Pancreas: Diffuse fatty atrophy. Adrenals: Unremarkable. Kidneys: No urolithiasis. No hydronephrosis. Exophytic right kidney lower pole cyst measures 8.3 x 10.0 x 8.0 cm. Adjacent cyst measures 4.1 x 2.8 x 5.0 cm. Bladder: Excreted contrast fills the bladder. No bladder wall thickening. Reproductive Organs/soft tissues: Scattered soft tissue gas locules noted in the left hemiscrotum ascending to the anterior left perineum, left inguinal canal, and left abdominal wall. There is associated fat stranding and mild skin thickening/ulceration. Stomach/duodenum: Small hiatal hernia. Duodenum unremarkable. Bowel: Scattered colonic diverticulosis. A loop of the distal transverse colon is seen protruding into the left inguinal hernia with extensive surrounding fat stranding, findings are concerning for reactive colitis/diverticulitis. No evidence of bowel obstruction. Appendix: The appendix is not identified. There is no inflammatory process identified in the right lower quadrant to suggest appendicitis. Lymph nodes: Unremarkable. Vasculature: Advanced atherosclerotic calcifications of the abdominal aorta and its branches. No aneurysm. Peritoneum / Retroperitoneum: No free fluid or air. Bones: Degenerative changes of the spine and bilateral hips. CT/Abdomen/Pelvis without Cont IMPRESSION: 1. Subcutaneous emphysema in the left hemiscrotum, anterior left perineum, left inguinal canal, and left abdominal wall. Associated soft tissue fat stranding as well as skin thickening/ulceration. Fi ndings are concerning for an infectious etiology, possibly with a gas-forming organism. Clinical correlation suggested. 2. Scattered colonic diverticulosis with thickening and fat stranding of a loop of the distal descending colon protruding into the left inguinal canal, findings are concerning for reactive colitis/diverticu litis. 3. Adjacent exophytic left renal cysts measuring 10.0 cm and 5.0 cm. Reading Location: [facility]
[2024-12-27] MEDS: 0.9% Saline Lock 10 ML Syringe IV (22:34)
[2024-12-27] MEDS: 0.9% Normal Saline (1000mL) 1,000 ML 100 ML IV (22:34)
[2024-12-27 22:48] LABS: Mucous, Urine 0 SEEN /hpf (<or=2+)
[2024-12-27 22:50] LABS: Color, Urine Yellow (Yellow); Glucose, Dipstick Normal (Normal); Ketone-Dipstick 15 mg/dl (Negative); Leukocyte Esterase-Dipstick Negative /ul (Negative); Nitrite-Dipstick Negative (Negative); Occult Blood-Urine 10 /ul (Negative); Protein-Dipstick 30 mg/dl (Negative); Specific Gravity, Urine 1.010 (1.002-1.030); Urine Bilirubin Dipstick Negative (Negative)
[2024-12-27 22:53] LABS: Troponin T High Sens 4 HR 25 ng/L (<=22)
[2024-12-27 23:31] LABS: Red Blood Cells-Urine 0-5 SEEN /hpf (0-5); Squamous Epithelial Cells - UA 0-5 SEEN /hpf (0-5)
[2024-12-27 23:49] LABS: Barbiturate Urine NEGATIVE (< 200 ng/mL); Benzodiazepine Urine NEGATIVE (< 200 ng/mL); PCP Urine NEGATIVE (< 25 ng/mL); THC Urine NEGATIVE (< 50 ng/mL)
[2024-12-28] VITALS (7 sets, daily range): BP systolic 139–171; BP diastolic 69–81; PULSE 71–85; RESP 16–18; TEMP 36.7–37.2; O2SAT 96–98; BMI 26.2
[2024-12-28] MEDS: metroNIDAZOLE 500 MG/100 ML BAG 100 MG IV ×2 (00:22→06:25)
[2024-12-28] MEDS: levoFLOXacin IV 750 MG/150 ML BAG 100 MG IV (00:34)
[2024-12-28] MEDS: Vancomycin HCl 1,750 MG in 0.9% Normal Saline (500mL Bag) 500 ML 250 MG IV (01:34)
--- NOTE | 2024-12-28 01:42 | PCM.RX.CS ---
Consult Antibiotic Management Pharmacy has been consulted to manage selected antibiotic: Vancomycin Type of Intervention Type of Consult: New start Labs Labs: Sodium 137 mmol/L (133-145) 12/27/24 18:20 Potassium 4.2 mmol/L (3.3-5.1) 12/27/24 18:20 Chloride 102 mmol/L (98-108) 12/27/24 18:20 Carbon Dioxide 23.8 mmol/L (21.0-32.0) 12/27/24 18:20 Anion Gap 11 (5-15) 12/27/24 18:20 BUN 22 mg/dL (4-19) H 12/27/24 18:20 Creatinine 1.04 mg/dL (0.70-1.20) 12/27/24 18:20 Est GFR (MDRD) Non-Af 71 (>60) 12/27/24 18:20 BUN/Creatinine Ratio 21.3 RATIO (10-20) H 12/27/24 18:20 Glucose 133 mg/dL (70-99) H 12/27/24 18:20 Dosing Weight Weight used for dosin kg Estimated Creatinine Clearance Estimated Creatinine Clearance: 47.7 Goal Trough Goal Trough: 15-20 mcg/mL Pharmacy Plan for Drug Dosing Pharmacy Plan for Drug Dosing: Pharmacy Service will continue to monitor and adjust dosing as required. Follow-Up Labs Follow-Up Labs: Trough: Vancomycin Date/Time Labs Ordered Labs to be done on [date and time ordered]: 12/29/24 @1300
[2024-12-28 06:01] LABS: Cholesterol 149 mg/dL (<=200); Low Density Lipoprotein Calc. 83 mg/dL; Triglycerides 106 mg/dL; Very Low Density Lipoprotein 21 mg/dL (5-40); cholesterol:hdl ratio screen 3.21
[2024-12-28 08:37] LABS: Hematocrit 42.1 % (40-54); Hemoglobin 14.3 g/dL (13.0-16.5); Mean Corp Hgb Conc 34.0 g/dL (32-36); Mean Corpuscular Volume 94.6 fL (80-94); Mean Platelet Vol. 11.1 fl (6.2-12.0); Platelet Count 174 K/mm3 (150-450); RBC Distribution Width CV 12.6 % (11.6-14.6); RBC Distribution Width SD 43.8 fl (35.1-43.9); Red Blood Count 4.45 M/mm3 (4.6-6.2); White Blood Count 10.6 K/mm3 (4.4-11.0)
[2024-12-28 09:13] LABS: Anion Gap 13 (5-15); BUN 19 mg/dL (4-19); BUN/Creat Ratio 20.7 RATIO (10-20); Calcium,Total 8.9 mg/dL (7.6-11.0); Carbon Dioxide 20.0 mmol/L (21.0-32.0); Chloride 103 mmol/L (98-108); Estimated Creatinine Clearance 53.94 ml/min (50-250); Glucose 103 mg/dL (70-99); Potassium 4.0 mmol/L (3.3-5.1)
--- NOTE | 2024-12-28 10:20 | MRI_ITS ---
PROCEDURE: BRAIN WITHOUT CONTRAST 12/28/2024 REASON FOR EXAM: CVA RULE OUT TECHNIQUE: Procedure Code: MRIBR Modality: MR Procedure: BRAIN WITHOUT CONTRAST Multiplanar and multisequence images were obtained. COMPARISON: Recent head CT FINDINGS: Diffusion-weighted images:Negative. ADC map: Negative. Gradient images: Negative. Cerebrum: Mild loss of cerebral volume. Negative for mass the frontal, parietal, temporal and occipital lobes otherwise negative. 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 Moderate periventricular white matter changes. Scattered bilateral T2 lesions in the morales radiata and centrum semiovale. Cerebellum: Negative for acute infarction. Otherwise negative cerebellum. CSF pathways and ventricles: Negative. Negative for ventricular dilatation or obstruction. Basal ganglia and thalami: Negative. No acute infarctions. Brainstem: Midbrain, amairani and medulla negative. Midline structures: The corpus callosum, pituitary fossa and cerebellar tonsils are negative. Limbic system: Medial temporal lobes and limbic system negative. Extra-axial spaces: Negative. Negative for subarachnoid, subdural or epidural hemorrhage. Orbital structures: Cataract surgery. Extraocular muscles negative. Paranasal sinuses: No air fluid levels. Remainder of the sinuses negative. Vascular structures: Normal intracranial flow voids including the superior sagittal sinus. Other: Remainder of exam negative. 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 Atrophy and small-vessel disease, age-appropriate. Negative for acute intracranial pathology. Reading Location: [id number]
--- NOTE | 2024-12-28 13:24 | PCM.DC ---
Discharge Instructions DC O2, CPAP, BIPAP needs Home O2 Discharge instructions: No Dressing / Incision Discharge Activity: No Restrictions Follow Up Care Test Results: Test results from this visit will be discussed in further detail at your follow-up appointment, if applicable. Discharge Plan Admission Admit Date/Time: 12/27/24 19:41 Primary Reason for Your Visit: difficulty with speech Attending Provider: Lavelle Ferrera Primary Care Provider: Ross Finn Consulting Providers: Gomez Isaac; Rudy Mejia; Fariba Delacruz; Andree Castro; Zina Granados; Hiram Juarez; Emily Crowder; Santi Lee; Joel Maravilla; Oswaldo Brown; Domonique Quintanilla; Angelita Alvarez; Jaydon Kulkarni; Gisell Amezcua; Regulo Young; Larissa Henry; Pernell De; Tracey Barrett; Teo Purdy; Sandi Ibarra; Manjula Cortez; Darrell Reeves Discharge Orders/Prescriptions Prescriptions: Continued metoprolol succinate 50 mg tablet extended release 24 hr 50 mg PO DAILY lisinopril 20 mg tablet 20 mg PO DAILY oxycodone-acetaminophen 5-325 mg tablet 1 tab PO 4X/DAY PRN PRN (Reason: pain) omeprazole 20 mg capsule,delayed release(DR/EC) 20 mg PO DAILY Referrals / Follow Up: Ross Finn MD [Primary Care Provider, [facility]] Disposition Disposition (needs filled in before D/C Order can be placed): Home, Self Care
--- NOTE | 2024-12-28 13:26 | DS.PCM_ITS ---
Providers Date of Admission: 12/27/24 Date of Discharge: 12/28/24 Primary Care Physician: Dr. Ross Finn MD Consultations 12/27/24 20:35 Consult: Tele-Neurology Routine Consulting Provider: [facility] Reason for Consult: Acute Ischemic Stroke/TIA EMERGENT Consult: No MD Notified: Yes Date Notified: 12/27/24 Time Notified: 21:29 Method of Notification: Answering Service Nursing Unit Staff Notify [facility] of Tele-Neurology Consult: Yes Reason For Visit: SUSPECTED CVA WITH EXPRESSIVE APHASIA Diagnosis Discharge Diagnosis (1) Aphasia due to acute stroke: Status: Acute Code(s): I63.9 - Cerebral infarction, unspecified; R47.01 - Aphasia (2) Postprocedural state: Status: Acute Code(s): Z98.890 - Other specified postprocedural states (3) Fever: Status: Acute Code(s): R50.9 - Fever, unspecified Qualifiers: Fever type: unspecified Qualified Code(s): R50.9 - Fever, unspecified (4) Leukocytosis: Status: Acute Code(s): D72.829 - Elevated white blood cell count, unspecified Qualifiers: Leukocytosis type: unspecified Qualified Code(s): D72.829 - Elevated white blood cell count, unspecified (5) Urinary retention: Status: Acute Code(s): R33.9 - Retention of urine, unspecified Medications at Discharge Home Medications lisinopril 20 mg tablet 20 mg PO DAILY BP 12/27/24 metoprolol succinate 50 mg tablet,extended release 24 hr 50 mg PO DAILY GERD 12/27/24 omeprazole 20 mg capsule,delayed release 20 mg PO DAILY GERD 12/27/24 oxycodone-acetaminophen 5 mg-325 mg tablet 1 tab PO 4X/DAY PRN PRN pain 12/27/24 Hospital Course Operations None Procedures EKG and - (CT brain, CTA head/neck, CT abdomen pelvis, chest x-ray, MRI brain) Summary of Care Provided Minutes Spent on Discharge: 38 Hospital Course: Patient is an 84-year-old male who presented to [facility] ED on 12/27/2024 with expressive aphasia. Short hospital course as noted below. Patient discharged home in stable condition on 12/28. 1. Expressive aphasia, CVA ruled out ? CT brain on admit showed ill-defined hypodensity within the left periventricular morales radiata suggestive of subacute/chronic infarction. CTA head/neck unremarkable. MRI brain confirmed an old left white matter infarction with no acute intracranial pathology. Expressive aphasia resolved by hospital day 2. Unclear etiology but may have been secondary to mild confusion from pain medications after recent procedure as below. Patient with good therapy scores on hospital day 2. Lipid panel unremarkable. A1c 5.8%. No need for aspirin or statin on discharge. Stable for discharge home with no therapy needs on 12/28. 2. Abnormal CT findings secondary to recent inguinal hernia repair ? Patient underwent inguinal hernia repair on the morning of 12/[facility] with Dr. Casanova. CT abdomen pelvis on 12/27 showed subcu emphysema in the left hemiscrotum, anterior left peritoneum, left inguinal canal and left abdominal wall with associated soft tissue fat stranding. Was noted to have a low-grade fever of 100.1 F and mild leukocytosis at 12K as well. Due to concern for infection, patient was started on IV antibiotics on admission. Discussed with general surgery on day of discharge and CT findings are consistent with recent postoperative findings, no concern for active infection. Patient afebrile on hospital day 2 and leukocytosis resolved. No need for antibiotics on discharge. Okay to continue oxycodone?acetaminophen for pain control as prescribed by [facility] surgery. 3. Urinary retention, resolved; history of BPH s/p prostatectomy ? Norton catheter placed on admission due to concern for urinary retention. Patient does have a history of prostatectomy many years ago. Norton catheter removed on hospital day 2 and patient urinating without issue. No further needs at discharge. 4. Hypertension ? Home antihypertensives held on admission for permissive hypertension. Okay to resume home Toprol and lisinopril on discharge. 5. GERD ? Continue home PPI. Total clinical time spent by myself addressing the patient's medical issues, reviewing all the data, and collaborating with patient's care team: 38 minutes. Physical Exam Const alert, oriented x3, no apparent distress and average body habitus Constitutional Narrative: Pleasant elderly male, sitting back comfortably in bedside chair, conversing normally, in no acute distress. General Appearance: cooperative and comfortable HEENT normocephalic, head/scalp atraumatic, hearing grossly normal bilaterally, nasal mucous membranes and turbinates normal and moist oral mucous membranes Eyes PERRL, EOMs intact bilaterally and conjunctivae normal Neck full ROM Chest inspection of chest normal Resp normal respiratory effort, normal air movement, no use of accessory muscles and clear to auscultation bilaterally Cardio regular rate, regular rhythm, no murmurs and peripheral pulses 2+ throughout GI normal to inspection, nondistended, normoactive bowel sounds, soft to palpation, non-tender and non-distended Back/Spine normal ROM Extremity normal to inspection, full ROM and no pedal edema Skin no rashes or lesions noted Neuro oriented x3, CN's II-XII intact bilaterally, moves all extremities, no focal motor deficits and no sensory deficits noted Speech: speech normal Motor Exam: strength 5/5 throughout Psych mental status grossly normal Weight / BMI Weight Weight: 73.6 kg Body Mass Index (BMI) 26.2 ABG / Lab / Microbiology Data 12/28/24 04:11 12/28/24 04:11 Laboratory: Laboratory Results - last 24 hr 12/27/24 18:18: POC Glucose 127 H 12/27/24 18:20: WBC 12.0 H, RBC 4.97, Hgb 15.9, Hct 47.3, MCV 95.2 H, MCH 32.0, MCHC 33.6, RDW Std Deviation 44.2 H, RDW Coeff of Tari 12.7, Plt Count 178, MPV 10.0, Immature Gran % (Auto) 0.400, Neut % (Auto) 81.0 H, Lymph % (Auto) 6.0 L, Creek % (Auto) 12.1 H, Eos % (Auto) 0.2, Baso % (Auto) 0.3, Absolute Neuts (auto) 9.7 H, Absolute Lymphs (auto) 0.72 L, Nucleated RBC % 0, PT 13.8, INR 1.0, APTT 29.3, Sodium 137, Potassium 4.2, Chloride 102, Carbon Dioxide 23.8, Anion Gap 11, BUN 22 H, Creatinine 1.04, Estim Creat Clear Calc 47.71 L, Est GFR (MDRD) Non-Af 71, BUN/Creatinine Ratio 21.3 H, Glucose 133 H, Hemoglobin A1c 5.8 H, Calcium 9.5, Troponin T High Sens 27 H, TSH 4.180, Ethyl Alcohol < 10.1 12/27/24 20:23: Troponin T Hi Sens 2 Hr 23 H 12/27/24 22:06: Troponin T Hi Sens 4Hr 25 H 12/27/24 22:39: Urine Color Yellow, Urine Clarity Clear, Urine pH 6.5, Ur Specific [place] 1.010, Urine Protein 30 H, Urine Glucose (UA) Normal, Urine Ketones 15 H, Urine Occult Blood 10 H, Urine Nitrite Negative, Urine Bilirubin Negative, Urine Urobilinogen Normal, Ur Leukocyte Esterase Negative, Urine RBC 0-5 SEEN, Urine WBC 0-5 SEEN, Ur Squamous Epith Cells 0-5 SEEN, Urine Bacteria 1+, Urine Mucus 0 SEEN, Urine Opiates Screen NEGATIVE, U Buprenorphine Qual NEGATIVE, Ur Oxycodone Screen PRESUMPTIVE POSITIVE, Urine Methadone Screen NEGATIVE, Urine Fentanyl Screen PRESUMPTIVE POSITIVE, Ur Barbiturates Screen NEGATIVE, Ur Phencyclidine Scrn NEGATIVE, Ur Amphetamines Screen NEGATIVE, U Benzodiazepines Scrn NEGATIVE, Urine Cocaine Screen NEGATIVE, U Cannabinoids Screen NEGATIVE 12/28/24 04:11: WBC 10.6, RBC 4.45 L, Hgb 14.3, Hct 42.1, MCV 94.6 H, MCH 32.1 H , MCHC 34.0, RDW Std Deviation 43.8, RDW Coeff of Tari 12.6, Plt Count 174, MPV 11.1, Sodium 136, Potassium 4.0, Chloride 103, Carbon Dioxide 20.0 L, Anion Gap 13, BUN 19, Creatinine 0.92, Estim Creat Clear Calc 53.94, Est GFR (MDRD) Non-Af 82, BUN/Creatinine Ratio 20.7 H, Glucose 103 H, Calcium 8.9, Triglycerides 106, Cholesterol 149, LDL Cholesterol, Calc 83, VLDL Cholesterol 21, HDL Cholesterol 46, Cholesterol/HDL Ratio 3.21 Microbiology: Microbiology 12/27/24 22:30 Mucosa - Nasopharyngeal Respiratory Panel (PCR) - Final Radiography Diagnostic Testing: Radiology Impression Brain CT 12/27/24 18:09 IMPRESSION: Ill-defined hypodensity within the left periventricular morales radiata suggestive of subacute/chronic infarction although acute on subacute/chronic infarction is not entirely excluded. Otherwise, no definite acute large territorial infarction. Nonspecific ethmoid sinus/nasal cavity soft tissue structures measuring approximally 2.6 x 2.5 cm at the midline (series 4, image 14). Dr. Villafana was notified by Larry Saenz at 6:50 pm EST on December 27, 2024. Reading Location: [facility] Head/Neck CTA 12/27/24 18:09 IMPRESSION: No acute large vessel occlusion or high grade stenosis. Nonspecific ethmoid sinus/nasal cavity soft tissue structures measuring approximally 2.6 x 2.5 cm at the midline (series 4, image 14). Dr. Villafana was notified by Larry Saenz at 6:45 Pm EST on 12/27/24. Reading Location: [facility] Abdomen/Pelvis CT 12/27/24 21:09 IMPRESSION: 1. Subcutaneous emphysema in the left hemiscrotum, anterior left perineum, left inguinal canal, and left abdominal wall. Associated soft tissue fat stranding as well as skin thickening/ulceration. Findings are concerning for an infectious etiology, possibly with a gas-forming organism. Clinical correlation suggested. 2. Scattered colonic diverticulosis with thickening and fat stranding of a loop of the distal descending colon protruding into the left inguinal canal, findings are concerning for reactive colitis/diverticulitis. 3. Adjacent exophytic left renal cysts measuring 10.0 cm and 5.0 cm. Reading Location: [facility] Chest X-Ray 12/27/24 21:09 IMPRESSION: No Acute Findings. 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 Atrophy and small-vessel disease, age-appropriate. Negative for acute intracranial pathology. Reading Location: [id number] D/C Instructions DC O2, CPAP, BIPAP Needs Home O2 Discharge instructions: No Meaningful Use Info Meaningful Use Meaningful Use Diagnoses (Choose all that apply): None applicable Discharge Plan Admission Admit Date/Time: 12/27/24 19:41 Primary Reason for Your Visit: difficulty with speech Attending Provider: Lavelle eFrrera Primary Care Provider: Ross Finn Consulting Providers: Gomez Isaac; Rudy Mejia; Fariba Delacruz; Andree Castro; Zina Granados; Hiram Juarez; Emily Crowder; Santi Lee; Joel Maravilla; Oswaldo Brown; Domonique Quintanilla; Angelita Alvarez; Jaydon Kulkarni; Gisell Amezcua; Regulo Young; Larissa Henry; Pernell De; Tracey Barrett; Teo Purdy; Sandi Ibarra; Manjula Cortez; Darrell Reeves Discharge Orders/Prescriptions Prescriptions: Continued metoprolol succinate 50 mg tablet extended release 24 hr 50 mg PO DAILY lisinopril 20 mg tablet 20 mg PO DAILY oxycodone-acetaminophen 5-325 mg tablet 1 tab PO 4X/DAY PRN PRN (Reason: pain) omeprazole 20 mg capsule,delayed release(DR/EC) 20 mg PO DAILY Referrals / Follow Up: Ross Finn MD [Primary Care Provider, [facility]] Disposition Disposition (needs filled in before D/C Order can be placed): Home, Self Care Charges/Coding Visit Charges Inpatient E&M: 04890 Disch Hosp >30min
[2024-12-28] MEDS: FLU VACCINE HIGH DOSE 25-26(65YR UP) 180 MCG/0.5 ML SYRINGE IM (14:00)
--- NOTE | 2024-12-28 16:54 | PN.HOSP_ITS ---
Hospitalist Note Saw patient at bedside this afternoon. Patient has had difficulty urinating since Norton catheter was pulled around 11 AM. He was able to urinate about 30 cc around 4 PM and bladder scan showed no urine in the bladder, patient noted pain and discomfort with urination. Has history of prostatectomy about 25 years ago. Has not required Norton catheter since then. He is worried about going home and having acute retention and needed to come back to the ED for Norton placement. He is also having moderate postoperative pain in the left inguinal region that may be contributing to his difficulty urinating. Will cancel discharge order and monitor with bladder scans overnight. Will also start low- dose oxycodone for pain control and give 2 doses of IV Toradol for pain control as well.
[2024-12-29] MEDS: 0.9% Saline Lock 10 ML Syringe IV (00:12)
[2024-12-29 02:55] VITALS: BP 131/74; PULSE 75; RESP 16; TEMP 36.5; O2SAT 96
[2024-12-29 06:05] LABS: Hematocrit 41.8 % (40-54); Hemoglobin 14.4 g/dL (13.0-16.5); Mean Corp Hgb Conc 34.4 g/dL (32-36); Mean Corpuscular Volume 94.4 fL (80-94); Mean Platelet Vol. 10.7 fl (6.2-12.0); Platelet Count 157 K/mm3 (150-450); RBC Distribution Width CV 12.4 % (11.6-14.6); RBC Distribution Width SD 43.4 fl (35.1-43.9); Red Blood Count 4.43 M/mm3 (4.6-6.2); White Blood Count 8.2 K/mm3 (4.4-11.0)
[2024-12-29 06:37] LABS: Anion Gap 11 (5-15); BUN 22 mg/dL (4-19); BUN/Creat Ratio 21.9 RATIO (10-20); Calcium,Total 9.2 mg/dL (7.6-11.0); Carbon Dioxide 23.9 mmol/L (21.0-32.0); Chloride 101 mmol/L (98-108); Estimated Creatinine Clearance 49.62 ml/min (50-250); Glucose 115 mg/dL (70-99); Potassium 3.9 mmol/L (3.3-5.1)
[2024-12-29 08:40] VITALS: O2SAT 96
[2024-12-29 10:24] VITALS: BP 162/71; PULSE 87; RESP 17; TEMP 36.8; O2SAT 100
--- NOTE | 2024-12-29 10:43 | CASEMGMT ---
Social Work Per imaging pt negative for stroke, therefore PHQ9 not completed. ALEXI Ramirez
--- NOTE | 2024-12-29 13:33 | NEURO.CONS ---
Assessment and Plan: Neuro Assessment/Plan ROSA MARIA PERAZA is a 84 M with a past medical history of , being evaluated by Teleneurology for Diagnosis: Plan: Transfer to [facility] for the following reasons: I personally attended this patient and spent a total time of minutes evaluating this patient including clinical assessment, review of chart, medical history imaging, and determining appropriate treatment and workup. HPI Consult Data Date of Consult: 12/29/24 HPI Narrative HPI Narrative: ROSA MARIA PERAZA, is a 84 M with a past medical history of essential hypertension; on lisinopril and metoprolol, overweight; with BMI of 26.1 this admission, former tobacco abuse, history of prostatectomy, GERD; on omeprazole, OA and very recent Left inguinal hernia repair at [facility] yesterday by Dr. Casanova who presents to [facility] ER complaining of expressive aphasia. Mr. Peraza reports his symptoms began at approximately 10 AM earlier today when he woke up from a nap with difficulty finding words leaving him unable to finish sentences and appearing lethargic to his family, which is unusual for him. He denies focal neurologic weakness, paresthesias, history of atrial fibrillation, history of vascular disease or history of CVA. He states he stopped taking his daily baby aspirin ~15 days ago and he denies current use of anticoagulants. He admits to excessive pain at his surgical incision site with grogginess and fatigue since this morning but he denies increasing redness or obvious signs of infection of his surgical site. He denies associated fever, chills, changes in vision, discharge from eyes, runny nose, sore throat, chest pain, palpitations, heart racing, lower extremity edema, shortness of breath, cough, wheezing, nausea, vomiting, diarrhea, constipation, dysuria, hematuria, arthralgias, myalgias, headache or rash. Saw patient at bedside this afternoon. Patient has had difficulty urinating since Norton catheter was pulled around 11 AM. He was able to urinate about 30 cc around 4 PM and bladder scan showed no urine in the bladder, patient noted pain and discomfort with urination. Has history of prostatectomy about 25 years ago. Has not required Norton catheter since then. He is worried about going home and having acute retention and needed to come back to the ED for Norton placement. He is also having moderate postoperative pain in the left inguinal region that may be contributing to his difficulty urinating. Will cancel discharge order and monitor with bladder scans overnight. Will also start low-dose oxycodone for pain control and give 2 doses of IV Toradol for pain control as well. [facility] Medical History (Updated 12/27/24 @ 23:[address] Darrell Reeves DO) HTN (hypertension) Home Medications ?Medication ?Instructions ?Recorded ?Last Taken ?Type lisinopril 20 mg tablet 20 mg PO DAILY BP 12/27/24 Unknown History metoprolol succinate 50 mg 50 mg PO DAILY GERD 12/27/24 Unknown History tablet,extended release 24 hr omeprazole 20 mg capsule,delayed 20 mg PO DAILY GERD 12/27/24 Unknown History release oxycodone-acetaminophen 5 mg-325 1 tab PO 4X/DAY PRN PRN pain 12/27/24 Unknown History mg tablet Allergy/AdvReac Type Severity Reaction Status Date / Time Penicillins Allergy Hives Verified 12/27/24 17:32 Social History Smoking Status: Former smoker Vital Signs Vital Signs Vital Signs: 12/28/24 14:14 12/28/24 16:02 12/28/24 20:10 Temperature 98.3 F 98.3 F Temperature Source Oral Oral Pulse Rate 83 80 Pulse Strength Normal (2+) Respiratory Rate 18 18 Respiratory Effort Respiratory Depth Respiratory Pattern Blood Pressure 156/77 H 154/81 H Blood Pressure Mean 103 105 Blood Pressure Source Monitor Monitor Blood Pressure Position Semi-Fowlers Semi-Fowlers Blood Pressure Location Left Arm Left Arm Pulse Ox 98 97 Oxygen Delivery Method Room Air Room Air 12/28/24 20:10 12/28/24 20:56 12/29/24 02:55 Temperature 98.0 F 97.7 F L Temperature Source Oral Oral Pulse Rate 85 75 Pulse Strength Respiratory Rate 18 16 Respiratory Effort Normal Non-Labored Respiratory Depth Normal Respiratory Pattern Normal Blood Pressure 139/76 H 131/74 H Blood Pressure Mean 97 93 Blood Pressure Source Monitor Monitor Blood Pressure Position Sitting Semi-Fowlers Blood Pressure Location Right Arm Right Arm Pulse Ox 96 96 Oxygen Delivery Method Room Air Room Air Room Air 12/29/24 08:40 12/29/24 10:24 Temperature 98.3 F Temperature Source Oral Pulse Rate 87 Pulse Strength Respiratory Rate 17 Respiratory Effort Respiratory Depth Respiratory Pattern Blood Pressure 162/71 H Blood Pressure Mean 101 Blood Pressure Source Monitor Blood Pressure Position Sitting Blood Pressure Location Right Arm Pulse Ox 96 100 Oxygen Delivery Method Room Air Room Air Weight Weight: 73.6 kg Body Mass Index (BMI) 26.2 EEG Results Procedure Details EEG Procedure Details: ROSA MARIA PERAZA is a 84 year old M with a past medical history of , who presents for evaluation of Electroencephalogram on DATE at TIME Lab / Micro Data 12/29/24 05:25 12/29/24 05:25 Labs: Laboratory Results - last 24 hr 12/29/24 05:25: WBC 8.2, RBC 4.43 L, Hgb 14.4, Hct 41.8, MCV 94.4 H, MCH 32.5 H, MCHC 34.4, RDW Std Deviation 43.4, RDW Coeff of Tari 12.4, Plt Count 157, MPV 10.7, Sodium 135, Potassium 3.9, Chloride 101, Carbon Dioxide 23.9, Anion Gap 11, BUN 22 H, Creatinine 1.00, Estim Creat Clear Calc 49.62 L, Est GFR (MDRD) Non-Af 74, BUN/Creatinine Ratio 21.9 H, Glucose 115 H, Calcium 9.2 Rhythm Strip Rhythm Strip: Sinus Rhythm Rate: 82 Ectopy: None Imaging Radiology Impression Carotid Duplex 12/27/24 19:45 Interpretation Summary Normal right extracranial internal carotid. Moderate (50-69%) stenosis left extracranial internal carotid. Patent and antegrade vertebrals bilaterally. Ordering Physician: Darrell Reeves Referring Physician: Ross Finn Performed By: Roopa Mustafa, EVARISTO, RVT Active Medications Active Medications Active Medications: Current Medications Generic Name Dose Route Start Last Admin Trade Name Freq PRN Reason Stop Dose Admin Acetaminophen 650 mg 12/27/24 20:35 12/29/24 12:34 Acetaminophen 325 Mg Tablet PO 650 mg Q4H PRN PRN Administration Pain 1-10 Or Fever>99.6 Aspirin 81 mg 12/28/24 08:00 12/29/24 10:30 Aspirin 81 Mg Tab.Chew PO 81 mg BREAKFAST YUE Administration Atorvastatin Calcium 40 mg 12/27/24 20:35 12/28/24 20:09 Atorvastatin Calcium 40 Mg Tablet PO 40 mg QHS YUE Administration Enoxaparin Sodium 40 mg 12/28/24 10:00 12/29/24 10:30 Enoxaparin 40 Mg/0.4 Ml Syringe SC 40 mg DAILY YUE Administration Sodium Chloride 250 mls @ 15 mls/hr 12/27/24 20:37 IV .[id number] PRN Saline Flush Sodium Chloride 250 mls @ 15 mls/hr 12/27/24 20:37 IV .[id number] PRN Additional IVPB Infusion Oxycodone HCl 5 mg 12/28/24 16:58 12/29/24 12:35 Oxycodone 5 Mg Tablet PO 5 mg Q6H PRN PRN Administration Pain Score 6-10 Pantoprazole Sodium 20 mg 12/28/24 10:00 12/29/24 10:30 Pantoprazole Sodium 20 Mg Tablet PO 20 mg DAILY YUE Administration Sodium Chloride 10 - 40 ml 12/27/24 20:37 12/29/24 00:12 0.9% Saline Lock 10 Ml Syringe IV 10 ml UD PRN Administration SALINE FLUSH Tamsulosin HCl 0.4 mg 12/28/24 17:00 12/29/24 13:08 Tamsulosin Hcl 0.4 Mg Capsule PO 0.4 mg DAILY@1730 YUE Administration NIHSS NIHSS Nursing Documentation NIHSS Nursing Documentation: NIHSS: Ischemic Stroke/TIA Start: 12/27/24 20:35 Text: For PCU Patients: NIH and Neuro Check every 4 Status: Complete hours, PRN and with change in RN caregiver. Freq: [id number] Protocol: Activity Type Activity Date Activity User E-sign Co-sign Detail Recorded Client Recorded Date Recorded By Document 12/28/24 08:30 EM [id number] 12/28/24 11:19 EM 12/28/24 08:30 NIH Stroke Scale [NIHSS] A score of 0 is normal or asymptomatic . Total possible score is 42. Inpatient: RN or Physician to activate a stroke alert for onset of new stroke symptoms or with NIHSS increase >/= 3 points. Following change in neurological status, NIHSS will be performed per physician order or more frequently PRN. -1a. Level of Consciousness 0 - Alert; keenly responsive -1b. LOC Questions 0 - Answers BOTH questions correctly -1c. LOC Commands 0 - Performs BOTH tasks correctly -2. Best Gaze 0 - Normal -3. Visual 0 - No visual loss -4. Facial Palsy 0 - Normal symmetrical movements -5a. Left Arm 0 - No drift; arm holds 90 ( or 45) degrees for full 10 seconds -5b. Right Arm 0 - No drift; arm holds 90 ( or 45) degrees for full 10 seconds -6a. Left Leg 0 - No drift; leg holds 30- degree position for full 5 seconds -6b. Right Leg 0 - No drift; leg holds 30- degree position for full 5 seconds -7. Limb Ataxia 0 - Absent -8. Sensory 0 - Normal; no sensory loss -9. Best Language 0 - No aphasia; normal -10. Dysarthria 0 - Normal -11. Extinction and Inattention 0 - No abnormality -Total 0 Query Text:A score of 0 is normal or asymptomatic. Total possible score is 42 . ED: Notify Physician for NIHSS increase by > / = 3 points. Inpatient: RN or Physician to activate a stroke alert for NIHSS increase of > / = 3 points. Coma Scale [Assess] -Eye Opening Spontaneous -Motor Obeys Commands -Verbal Oriented [Total] -Coma Scale Total 15
--- NOTE | 2024-12-29 14:27 | DCINST_ITS ---
Discharge Instructions DC O2, CPAP, BIPAP needs Home O2 Discharge instructions: No Dressing / Incision Discharge Activity: Return to Normal Activity Dressing / Incision Call your doctor if you observe: Fever of 101 or Higher, Shortness of breath, Dizziness, Fainting spells, Swelling in the ankles, Chest pain and Increased palpitations (irregular heartbeat) Follow Up Care Test Results: Test results from this visit will be discussed in further detail at your follow- up appointment, if applicable. Discharge Plan Admission Admit Date/Time: 12/27/24 19:41 Primary Reason for Your Visit: difficulty with speech Attending Provider: Fahad Hobbs Primary Care Provider: Ross Finn Consulting Providers: Gomez Isaac; Rudy Mejia; Fariba Delacruz; Andree Castro; Zina Granados; Hiram Juarez; Emily Crowder; Santi Lee; Joel Maravilla; Oswaldo Brown; Domonique Quintanilla; Angelita Alvarez; Jaydon Kulkarni; Gisell Amezcua; Regulo Young; Larissa Henry; Pernell De; Tracey Barrett; Teo Purdy; Sandi Ibarra; Manjula Cortez; Darrell Reeves; Lavelle Ferrera Discharge Orders/Prescriptions Prescriptions: New atorvastatin 40 mg Tablet 40 mg PO QHS 30 Days Qty: 30 0RF aspirin 81 mg Tablet,Chewable 81 mg PO BREAKFAST 30 Days Qty: 30 0RF Continued metoprolol succinate 50 mg tablet extended release 24 hr 50 mg PO DAILY lisinopril 20 mg tablet 20 mg PO DAILY oxycodone-acetaminophen 5-325 mg tablet 1 tab PO 4X/DAY PRN PRN (Reason: pain) omeprazole 20 mg capsule,delayed release(DR/EC) 20 mg PO DAILY Referrals / Follow Up: Ross Finn MD [Primary Care Provider, Family Practice] - Within 1 Week Troy Gotti MD [Med Staff - Active Staff, Urology] - Within 2 Weeks Chilo Cherry MD [Non-Staff, Neurology] - Within 1 Month Disposition Disposition (needs filled in before D/C Order can be placed): Home, Self Care
--- NOTE | 2024-12-29 14:55 | PHA.DC.MC.R ---
Pharmacy [facility] Counseling Pharmacy Service has performed discharge medication reconciliation and counseling for this patient. The patient's discharge medication list was reviewed for discrepancies and discrepancies were resolved. The patient was counseled on the following discharge medications and changes in medications for homegoing were reviewed. The Reason for Use, instructions for use, and potential side effects were reviewed for all new medications. The patient's questions regarding all of their medications were answered. 1. Atorvastatin 40 mg PO QHS 2. Aspirin 81 mg PO daily The patient was able to verbally demonstrate an understanding of their discharge medications. Medications at Discharge Home Medications lisinopril 20 mg tablet 20 mg PO DAILY BP 12/27/24 metoprolol succinate 50 mg tablet,extended release 24 hr 50 mg PO DAILY GERD 12/27/24 omeprazole 20 mg capsule,delayed release 20 mg PO DAILY GERD 12/27/24 oxycodone-acetaminophen 5 mg-325 mg tablet 1 tab PO 4X/DAY PRN PRN pain 12/27/24 aspirin 81 mg chewable tablet 81 mg PO BREAKFAST 30 days #30 tabs 12/29/24 atorvastatin 40 mg tablet 40 mg PO QHS 30 days #30 tabs 12/29/24
[2024-12-29 15:00] VITALS: BP 133/64; PULSE 102; RESP 16; O2SAT 96
--- NOTE | 2024-12-29 15:28 | CASEMGMT ---
JASEN SHORE Assessment: Face to Face with pt for initial transition planning/care coordination assessment. RN SILVIANO introduced self and role at [facility], pt voices understanding and consents to assessment. Pt is A&O x4 and answers all questions appropriately at this time. Pt up in room walking around, in no distress. Care providers, pharmacy, and demographics verified/updated. Strata: 2 Admitting Dx: Suspected CVA with expessive aphasia PCP: [facility] Specialists: Denies Preferred Pharmacy: [facility] Insurance: [facility] A and B, [facility] [employer] Prescription Benefit: yes LNOK: SonForeign Living Arrangements: Pt lives alone in a 1 level home with 2 steps to enter with handrailing to enter. ADLs: I with ADLs. Transportation: Pt drives self and denies concerns with transportation. DME: walker, chair lift, grab bars, shower chair. HHC/SNF: Denies Hx of. Pt states no concerns with going home at time of dc. Pt states no further concerns/needs. CM to follow. Advised pt to ask CM if any further question/concerns/needs arise, voices understanding. Pt Goal: Home Plan: Home with OP therapy. Provided pt with script. Saira AGGARWAL CM
[2024-12-29 15:58] VITALS: BMI 26.2
--- NOTE | 2024-12-29 19:32 | PCM.DC.SUM ---
Providers Date of Admission: 12/27/24 Primary Care Physician: Dr. Ross Finn MD Consultations 12/27/24 20:35 Consult: Tele-Neurology Routine Consulting Provider: [facility] Reason for Consult: Acute Ischemic Stroke/TIA EMERGENT Consult: No MD Notified: Yes Date Notified: 12/27/24 Time Notified: 21:29 Method of Notification: Answering Service Nursing Unit Staff Notify [facility] of Tele-Neurology Consult: Yes Reason For Visit: SUSPECTED CVA WITH EXPRESSIVE APHASIA Diagnosis Discharge Diagnosis (1) Aphasia due to acute stroke: Status: Acute Code(s): I63.9 - Cerebral infarction, unspecified; R47.01 - Aphasia (2) Postprocedural state: Status: Acute Code(s): Z98.890 - Other specified postprocedural states (3) Fever: Status: Acute Code(s): R50.9 - Fever, unspecified Qualifiers: Fever type: unspecified Qualified Code(s): R50.9 - Fever, unspecified (4) Leukocytosis: Status: Acute Code(s): D72.829 - Elevated white blood cell count, unspecified Qualifiers: Leukocytosis type: unspecified Qualified Code(s): D72.829 - Elevated white blood cell count, unspecified (5) Urinary retention: Status: Acute Code(s): R33.9 - Retention of urine, unspecified Medications at Discharge Home Medications lisinopril 20 mg tablet 20 mg PO DAILY BP 12/27/24 metoprolol succinate 50 mg tablet,extended release 24 hr 50 mg PO DAILY GERD 12/27/24 omeprazole 20 mg capsule,delayed release 20 mg PO DAILY GERD 12/27/24 oxycodone-acetaminophen 5 mg-325 mg tablet 1 tab PO 4X/DAY PRN PRN pain 12/27/24 aspirin 81 mg chewable tablet 81 mg PO BREAKFAST 30 days #30 tabs 12/29/24 atorvastatin 40 mg tablet 40 mg PO QHS 30 days #30 tabs 12/29/24 Hospital Course Operations None Procedures 2-D Echocardiogram Summary of Care Provided Minutes Spent on Discharge: 39 Hospital Course: Per HPI: ROSA MARIA PERAZA, is a 84 M with a past medical history of essential hypertension; on lisinopril and metoprolol, overweight; with BMI of 26.1 this admission, former tobacco abuse, history of prostatectomy, GERD; on omeprazole, OA and very recent Left inguinal hernia repair at [facility] yesterday by Dr. Casanova who presents to [facility] ER complaining of expressive aphasia. Mr. Peraza reports his symptoms began at approximately 10 AM earlier today when he woke up from a nap with difficulty finding words leaving him unable to finish sentences and appearing lethargic to his family, which is unusual for him. He denies focal neurologic weakness, paresthesias, history of atrial fibrillation, history of vascular disease or history of CVA. He states he stopped taking his daily baby aspirin ~15 days ago and he denies current use of anticoagulants. He admits to excessive pain at his surgical incision site with grogginess and fatigue since this morning but he denies increasing redness or obvious signs of infection of his surgical site. He denies associated fever, chills, changes in vision, discharge from eyes, runny nose, sore throat, chest pain, palpitations, heart racing, lower extremity edema, shortness of breath, cough, wheezing, nausea, vomiting, diarrhea, constipation, dysuria, hematuria, arthralgias, myalgias, headache or rash. In the ER Stroke Alert was immediately called with CT scan of the brain without contrast that revealed ill-defined hypodensity within the Left periventricular morales radiata suggestive of subacute/chronic infarction although acute on subacute/chronic infarction is not entirely excluded with no definite acute large territorial infarction and nonspecific ethmoid sinus/nasal cavity soft tissue structures measuring ~2.6 cm x ~2.5 cm at the midline followed by CTA of the head and neck with IV contrast that showed no acute large vessel occlusion or high-grade stenosis with nonspecific ethmoid sinus/nasal cavity soft tissue structures measuring ~2.6 x ~2.5 cm. He was also noted to have a Fever of 100.1 ?F with Leukocytosis of 12K present on admission with CT evidence of Urinary Retention with patient requesting Norton and with no obvious source of infection noted at the time of admission. He was then admitted to the PCU under observation status for a stay that is expected to be less than 2 midnights. Hospital Course: 1. Expressive aphasia?84-year-old male presented to the hospital for expressive aphasia. He had a left inguinal hernia repair done at an outside hospital and the next day developed some expressive aphasia so presented to this hospital. He has been on some narcotics which could have ultimately caused this. He did have an echocardiogram which demonstrated a 70% EF and stage I diastolic dysfunction appropriate for his age. He had carotid duplexes with moderate left stenosis. MRI was negative for any acute stroke however did show old strokes therefore I did elect to proceed with aspirin and Lipitor on discharge. I do recommend he follow-up with neurology as an outpatient. He was supposed to be discharged on 12/28/2024 however he developed urinary retention. He was placed on Flomax however he is status post total prostatectomy so the evidence is unclear as to the benefit of Flomax in the situation. I do recommend he follow-up with urology as an outpatient. Prior to discharge she was able to void the 120 cc, and he requested not to have a Norton placed prior to discharge. I discussed with him the plan for discharge he expressed understanding of the risk and benefits of going home and would like to go home today. 2. Essential hypertension, GERD are all chronic medical conditions which complicate his care. His home medications were continued where appropriate Physical Exam Narrative General: Alert, Oriented x3, Cooperative, No apparent distress HEENT: Atraumatic, PERRLA, EOMI, Normocephalic Oral: Moist Mucosa Neck: Supple, No JVD Lungs: Diminished, Normal air movement, No rhonchi, No wheeze, No rales Cardiovascular: Regular rate, Regular Rhythm, Normal S1, Normal S2, No murmurs Abdomen: Soft, Non Tender, Non-Distended, No Hepato-splenomegaly ecchymosis over his and below his hernia incision, with penile swelling Extremities: Nonpitting edema, Capillary Refill Less than 3 Seconds Skin: No rashes, No breakdown Musculoskeletal: No Tenderness to Palpation of Joints or Extremities Neurological: No focal neurological deficits, moves all extremities Psych/Mental Status: Normal Affect, Appropriate Weight / BMI Weight Weight: 162 lb 4.163 oz Body Mass Index (BMI) 26.2 ABG / Lab / Microbiology Data 12/29/24 05:25 12/29/24 05:25 Laboratory: Laboratory Results - last 24 hr 12/29/24 05:25: WBC 8.2, RBC 4.43 L, Hgb 14.4, Hct 41.8, MCV 94.4 H, MCH 32.5 H, MCHC 34.4, RDW Std Deviation 43.4, RDW Coeff of Tari 12.4, Plt Count 157, MPV 10.7, Sodium 135, Potassium 3.9, Chloride 101, Carbon Dioxide 23.9, Anion Gap 11, BUN 22 H, Creatinine 1.00, Estim Creat Clear Calc 49.62 L, Est GFR (MDRD) Non-Af 74, BUN/Creatinine Ratio 21.9 H, Glucose 115 H, Calcium 9.2 Microbiology: Microbiology 12/27/24 22:30 Mucosa - Nasopharyngeal Respiratory Panel (PCR) - Final Radiography Diagnostic Testing: Radiology Impression Carotid Duplex 12/27/24 19:45 Interpretation Summary Normal right extracranial internal carotid. Moderate (50-69%) stenosis left extracranial internal carotid. Patent and antegrade vertebrals bilaterally. Ordering Physician: Darrell Reeves Referring Physician: Ross Finn Performed By: Roopa Mustafa RDCS, RVT Echocardiogram 12/27/24 19:45 Interpretation Summary The left ventricular ejection fraction is 70 %. Stage 1 diastolic dysfunction. Moderate mitral annular calcification. Mild (1+) mitral valve insufficiency. Moderate aortic valve calcification. Aortic valve sclerosis without stenosis. Moderately dilated ascending aorta. Consider CT scan for further evaluation. Ordering Physician: Darrell Reeves Referring Physician: Ross Finn Performed By: Kimmie Trinidad RDCS D/C Instructions Call your doctor if you observe: Fever of 101 or Higher, Shortness of breath, Dizziness, Fainting spells, Swelling in the ankles, Chest pain and Increased palpitations (irregular heartbeat) DC O2, CPAP, BIPAP Needs Home O2 Discharge instructions: No Meaningful Use Info Meaningful Use Meaningful Use Diagnoses (Choose all that apply): None applicable Discharge Plan Admission Admit Date/Time: 12/27/24 19:41 Primary Reason for Your Visit: difficulty with speech Attending Provider: Fahad Hobbs Primary Care Provider: Ross Finn Consulting Providers: Gomez Isaac; Rudy Mejia; Fariba Delacruz; Andree Castro; Zina Granados; Hiram Juarez; Emily Crowder; Santi Lee; Joel Maravilla; Oswaldo Brown; Domonique Quintanilla; Angelita Alvarez; Jaydon Kulkarni; Gisell Amezcua; Regulo Young; Larissa Henry; Pernell De; Tracey Barrett; Teo Purdy; Sandi Ibarra; Manjula Cortez; Drarell Reeves; Lavelle Ferrera Discharge Orders/Prescriptions Prescriptions: New atorvastatin 40 mg Tablet 40 mg PO QHS 30 Days Qty: 30 0RF aspirin 81 mg Tablet,Chewable 81 mg PO BREAKFAST 30 Days Qty: 30 0RF Continued metoprolol succinate 50 mg tablet extended release 24 hr 50 mg PO DAILY lisinopril 20 mg tablet 20 mg PO DAILY oxycodone-acetaminophen 5-325 mg tablet 1 tab PO 4X/DAY PRN PRN (Reason: pain) omeprazole 20 mg capsule,delayed release(DR/EC) 20 mg PO DAILY Referrals / Follow Up: Ross Finn MD [Primary Care Provider, Family Practice] - Within 1 Week Troy Gotti MD [Med Staff - Active Staff, Urology] - Within 2 Weeks Chilo Cherry MD [Non-Staff, Neurology] - Within 1 Month Disposition Disposition (needs filled in before D/C Order can be placed): Home, Self Care Charges/Coding Visit Charges Inpatient E&M: 66849 Disch Hosp >30min
== END 2024-12-29 16:00 | disposition home or self-care (01) | DRG 93 ==
LOC: ED 19:35 → PCU 20:07
PROVIDERS: Hospitalist; Admitting Provider Internal Medicine; Emergency Provider Emergency Medicine; PCP Family Medicine; Visit Provider Family Medicine
DX: R47.01 Aphasia (principal); D72.829 Elevated white blood cell count, unspecified; I10 Essential (primary) hypertension; I65.22 Occlusion and stenosis of left carotid artery; K21.9 Gastro-esophageal reflux disease without esophagitis; R33.9 Retention of urine, unspecified; E66.3 Overweight; Z68.26 Body mass index [BMI] 26.0-26.9, adult; Z79.899 Other long term (current) drug therapy; Z87.891 Personal history of nicotine dependence
CPT/HCPCS: 36415; 70450; 70496; 70498; 70551; 71045; 74176; 80048; 80061; 80307; 81001; 82077; 82962; 83036; 84443; 84484; 85025; 85027; 85610; 85730; 87040; 87633; 92523; 93005; 93306; 93880; 94762; 97162; 97166; 97802; 99285; Q9967; A4216